=== PATIENT | female | born 1940 | race Caucasian/White ===

== ENCOUNTER 2020-09-09 12:38 | Inpatient (IN) ==
--- OUTSIDE RECORDS SUMMARY | 2020-09-09 12:40 | External Medical Summary | Continuity of Care Document ---
:1940 Author Name Mary Andino, Provider Address Unavailable Unavailable , Care Team Providers Name Role Phone Naomie Andino, Enzo Unavailable [email or web address] UN[place] Unavailable Unavailable Problems Active medical history not documented Allergies and Adverse Reactions Allergy history not documented Medications Aspirin 81 81 MG Oral Tablet Delayed Release Refills: 0 Effexor TABS Refills: 0 Verapamil HCl TABS Refills: 0 Vitamin B-12 TABS Refills: 0 metFORMIN HCl TABS Refills: 0 Procedures Procedures not documented Immunizations Immunizations not documented Plan of Treatment Planned Observations Planned Goals not documented Results No Known Results Results not documented
[2020-09-09] MEDS ORDERED: SODIUM CHLORIDE 0.9% 1000ML 1,000 ML IV ONE ×2 (12:56→14:05)
--- NOTE | 2020-09-09 13:02 | Emergency Department Note ---
Impression & Plan DKA (diabetic ketoacidoses), Compression fracture, Fall, Closed fibular fracture ED Provider Note NAME: MARLA VELEZ AGE: 80 SEX: F : 1940 ARRIVES VIA: Walk-In INFORMANT: Patient ED PROVIDER(S): Amadeo Trevino DO CHIEF COMPLAINT: Fall HPI: Patient is an 80-year-old female who presents to the ER following a mechanical fall. She slipped in her den. This occurred about 4 days ago. She was able to eventually get into her bed and lay in there. She was able to get up intermittently to go the bathroom but had significant difficulty. She complaining of pain throughout her right leg Specifically on her ankle. She also has lower back pain. She denies any headache or change in vision. No chest pain or shortness of breath. No belly pain. She admits to some nausea. She notes she is extremely thirsty. Eventually a neighbor came and has they not iced that her Meals on Wheels was not getting picked up at the front door. ROS: See above HPI for pertinent positives & negatives. A total of 10 systems reviewed and were otherwise negative. PAST MEDICAL HISTORY:See Below PAST SURGICAL HISTORY:See Below FAMILY HISTORY:See Below SOCIAL HISTORY:See Below HOME MEDICATIONS:See Below ALLERGIES:See Below VITALS:See Below PHYSICAL EXAMINATION: GENERAL: alert, well appearing, well nourished, no distress, non-toxic HEAD: normal cephalic, atraumatic EYE EXAM: normal conjunctiva, PERRL and EOM's grossly intact OROPHARYNX:mucous membranes are dry NECK: supple, no nuchal rigidity, no adenopathy, non-tender CHEST: stable to compression anteriorly and posteriorly LUNGS: clear to auscultation. Normal chest wall mechanics HEART: no murmurs, S1 normal and S2 normal ABDOMEN: abdomen soft, non-tender, normo-active bowel sounds, no masses, no rebound or guarding. PELVIS: stable to compression anteriorly and posteriorly BACK: Back is symmetrical on inspection and there is no deformity, Midline tenderness in the lower lumbar region, no CVA tenderness. UPPER EXTREMITIES: full active and passive range of motion of all joints without tenderness to palpation LOWER EXTREMITIES: No tenderness on palpation of left femur tib-fib ankle or foot. Skin is intact. DP 2 out of 4. Bruising over right ankle with minimal tenderness to palpation. Mild tenderness in the right mid femur and tib-fib. Skin is intact. DP 2 out of 4. Flexion at the hip knee and ankle intact but with moderate pain with flexion of the knee and ankle. Gross sensations intact. NEURO EXAM: Normal sensorium, cranial nerves II-XII grossly intact, normal speech, no gross weakness of arms, no gross weakness of legs. GCS: 15. MEDICAL DECISION MAKING: Patient is an 80-year-old female who presents to the ER for mechanical fall 4 days ago. Following this she has been unable to really ambulate or move at her house and has been laying in bed. Intermittently get to the bathroom. IV was established blood work was obtained. Labs show mild leukocytosis 11.5 thousand. No significant anemia. VBG with a pH of 7.3 and a CO2 of 35 with a bicarb of 1 7. Sodium of 128 with a bicarb of 15. Glucose was elevated at 4 7. LFTs bilirubin and troponin was negative.X-rays of the pelvis femur tib-fib and ankle show right distal fibular fracture. Patient was placed in a splint. She also had what appears to be compression fractures in the lower lumbar region and lower thoracic. She is tender over these. CT head and cervical spine was unremarkable. Discussed with hospitalist and patient was admitted for further work-up following bolus of IV fluids, IV narcotics and insulin bolus. Triage Nursing notes reviewed. Limited review of prior medical records performed Vital Signs: reviewed and remarkable for Tachycardic and hypothermic Differential diagnosis: Differential diagnoses include major intracranial, cervical, spinal, thoracic, abdominal, pelvic and neurologic injury. Fracture, contusion, sprain, strain, laceration, abrasions included as well. ER treatment provided: See below Diagnostics interpreted by me: ECG: [none] Cardiac Monitoring: An order was placed for continuous cardiac monitoring. The monitor shows a rate of 98 with sinus rhythm. Laboratory studies: As stated above and show below. Imaging studies: CT head and cervical spine showed no acute pathology X-rays of the tib-fib chest along with left ribs, pelvis showed no acute fractures with the exception of the distal right fibula. X-rays of the lumbar spine show lower thoracic compression fractures as well as endplate compression fracture at L3 Consultation(s): Discussed with Dr. Lema for further evaluation Procedures: none Critical Care: None Past Med/Surg History Medical History (Updated 09/09/20 @ 16:21 by mAadeo Trevino DO) Afib Depression Family History (Updated 09/09/20 @ 14:32 by Gordo Carlin MD) Other Heart disease Social History Smoking Status: Never smoker Preferred Language: Kyrgyz Feels Safe at Home: Yes Allergies Allergies Allergy/AdvReac Type Severity Reaction Status Date / Time codeine AdvReac Intermediate VOMITING Verified 09/09/20 14:40 Home Meds Home Medications Medication Instructions Recorded Confirmed metformin 1,000 mg PO BIDM 09/09/20 09/09/20 mirtazapine 30 mg PO HS 09/09/20 09/09/20 Results & Data (ED) Vital Signs Vital Signs - 24 hr 09/09/20 12:39 09/09/20 13:06 09/09/20 14:17 Temperature 35.6 C L Temperature Source Temporal Artery Scan Pulse Rate 100 H Pulse Rate [Finger] 90 Pulse Rhythm Regular Pulse Strength Normal Respiratory Rate 18 16 Respiratory Effort / Characteristics Non-Labored Spontaneous Non-Labored Respiratory Depth Normal Normal Respiratory Pattern Regular Blood Pressure 136/90 Blood Pressure [Right Arm] 131/93 Blood Pressure Mean 105 Blood Pressure Mean [Right Arm] 105 Blood Pressure Position Sitting Pulse Oximetry 98 96 Oxygen Delivery Method Room Air Room Air Room Air Sepsis Recent Fever Within 48 Hours No Sepsis New/Unexplained Change in Mental Status No Sepsis Action Taken by Nursing No Action Required 09/09/20 15:56 Temperature Temperature Source Pulse Rate Pulse Rate [Finger] 100 H Pulse Rhythm Pulse Strength Respiratory Rate 16 Respiratory Effort / Characteristics Non-Labored Respiratory Depth Normal Respiratory Pattern Blood Pressure Blood Pressure [Right Arm] 131/93 Blood Pressure Mean Blood Pressure Mean [Right Arm] 105 Blood Pressure Position Pulse Oximetry 99 Oxygen Delivery Method Room Air Sepsis Recent Fever Within 48 Hours Sepsis New/Unexplained Change in Mental Status Sepsis Action Taken by Nursing Laboratory Data Result diagrams: 09/09/20 13:00 09/09/20 13:00 Lab Results 09/09/20 09/09/20 09/09/20 Range/Units 13:00 13:00 13:20 WBC 11.58 H (4.8-10.8) K/uL RBC 4.97 (4.2-5.4) M/uL Hgb 15.1 (12.0-16.0) g/dL Hct 43.9 (37-47) % MCV 88.3 (80-100) fL MCH 30.4 (25-34) pg MCHC 34.4 (32-36) g/dL RDW Std Deviation 40.1 (36.4-46.3) fL RDW Coeff of Jude 12.5 (11.5-14.5) % Plt Count 361 (130-400) K/uL MPV 9.4 (7.4-10.4) fL Immature Gran % (Auto) 0.3 % Neut % (Auto) 78.5 % Lymph % (Auto) 10.6 % [place] % (Auto) 10.1 % Eos % (Auto) 0.4 % Baso % (Auto) 0.1 % Neut # (Auto) 9.09 H (1.4-6.5) K/uL Lymph # (Auto) 1.23 (1.2-3.4) K/uL [place] # (Auto) 1.17 H (0.11-0.59) K/uL Eos # (Auto) 0.05 (0-0.5) K/uL Baso # (Auto) 0.01 (0-0.2) K/uL Immature Gran # (Auto) 0.03 H (0.00-0.02) K/uL VBG pH (7.36-7.41) VBG pCO2 (38-50) mmHg VBG pO2 mmHg VBG HCO3 mmol/L VBG O2 Saturation % VBG Base Excess mEq/L Barometric Pressure mm/Hg Sodium 128 L (136-145) mmol/L Potassium 4.1 (3.5-5.1) mmol/L Chloride 93 L (98-107) mmol/L Carbon Dioxide 15 L (21-32) mmol/L Anion Gap 20.0 H (3-11) BUN 16 (7-18) mg/dl Creatinine 1.08 (0.6-1.2) mg/dl Est Cr Clr Drug Dosing 37.0 ml/min Est GFR ( Amer) 55.4 Est GFR (Non-Af Amer) 47.8 BUN/Creatinine Ratio 14.6 (10-20) Glucose 407 H* (70-99) mg/dl POC Glucose (70-99) mg/dl Lactate (0.4-2.0) mmol/L Calcium 9.9 (8.5-10.1) mg/dl Phosphorus (2.5-4.9) mg/dl Magnesium Total Bilirubin 0.6 (0.2-1) mg/dl AST 11 L (15-37) U/L ALT 19 (12-78) U/L Alkaline Phosphatase 107 (45-117) U/L Total Creatine Kinase 39 (26-192) U/L Troponin I < 0.015 (0-0.045) ng/ml Total Protein 8.2 (6.4-8.2) gm/dl Albumin 3.1 L (3.4-5.0) gm/dl Globulin 5.1 H (2.5-4.0) gm/dl Albumin/Globulin Ratio 0.6 L (0.9-2) Lipase 142 (73-393) U/L Beta-Hydroxybutyric Acd (0.2-2.81) mg/dl COVID-19 Eval [facility] SARS-CoV-2, RNA, NAAT (NEGATIVE) 09/09/20 09/09/20 09/09/20 Range/Units 13:20 14:54 14:54 WBC (4.8-10.8) K/uL RBC (4.2-5.4) M/uL Hgb (12.0-16.0) g/dL Hct (37-47) % MCV (80-100) fL MCH (25-34) pg MCHC (32-36) g/dL RDW Std Deviation (36.4-46.3) fL RDW Coeff of Jude (11.5-14.5) % Plt Count (130-400) K/uL MPV (7.4-10.4) fL Immature Gran % (Auto) % Neut % (Auto) % Lymph % (Auto) % [place] % (Auto) % Eos % (Auto) % Baso % (Auto) % Neut # (Auto) (1.4-6.5) K/uL Lymph # (Auto) (1.2-3.4) K/uL [place] # (Auto) (0.11-0.59) K/uL Eos # (Auto) (0-0.5) K/uL Baso # (Auto) (0-0.2) K/uL Immature Gran # (Auto) (0.00-0.02) K/uL VBG pH 7.30 L (7.36-7.41) VBG pCO2 35 L (38-50) mmHg VBG pO2 25 mmHg VBG HCO3 17 mmol/L VBG O2 Saturation < 60.0 % VBG Base Excess -8.8 mEq/L Barometric Pressure 734.9 mm/Hg Sodium (136-145) mmol/L Potassium (3.5-5.1) mmol/L Chloride (98-107) mmol/L Carbon Dioxide (21-32) mmol/L Anion Gap (3-11) BUN (7-18) mg/dl Creatinine (0.6-1.2) mg/dl Est Cr Clr Drug Dosing ml/min Est GFR ( Amer) Est GFR (Non-Af Amer) BUN/Creatinine Ratio (10-20) Glucose (70-99) mg/dl POC Glucose (70-99) mg/dl Lactate (0.4-2.0) mmol/L Calcium (8.5-10.1) mg/dl Phosphorus 3.2 (2.5-4.9) mg/dl Magnesium TNP Total Bilirubin (0.2-1) mg/dl AST (15-37) U/L ALT (12-78) U/L Alkaline Phosphatase (45-117) U/L Total Creatine Kinase (26-192) U/L Troponin I (0-0.045) ng/ml Total Protein (6.4-8.2) gm/dl Albumin (3.4-5.0) gm/dl Globulin (2.5-4.0) gm/dl Albumin/Globulin Ratio (0.9-2) Lipase (73-393) U/L Beta-Hydroxybutyric Acd TNP (0.2-2.81) mg/dl COVID-19 Eval Order SARS-CoV-2, RNA, NAAT NEGATIVE (NEGATIVE) 09/09/20 09/09/20 Range/Units 14:55 15:42 WBC (4.8-10.8) K/uL RBC (4.2-5.4) M/uL Hgb (12.0-16.0) g/dL Hct (37-47) % MCV (80-100) fL MCH (25-34) pg MCHC (32-36) g/dL RDW Std Deviation (36.4-46.3) fL RDW Coeff of Jude (11.5-14.5) % Plt Count (130-400) K/uL MPV (7.4-10.4) fL Immature Gran % (Auto) % Neut % (Auto) % Lymph % (Auto) % [place] % (Auto) % Eos % (Auto) % Baso % (Auto) % Neut # (Auto) (1.4-6.5) K/uL Lymph # (Auto) (1.2-3.4) K/uL [place] # (Auto) (0.11-0.59) K/uL Eos # (Auto) (0-0.5) K/uL Baso # (Auto) (0-0.2) K/uL Immature Gran # (Auto) (0.00-0.02) K/uL VBG pH (7.36-7.41) VBG pCO2 (38-50) mmHg VBG pO2 mmHg VBG HCO3 mmol/L VBG O2 Saturation % VBG Base Excess mEq/L Barometric Pressure mm/Hg Sodium (136-145) mmol/L Potassium (3.5-5.1) mmol/L Chloride (98-107) mmol/L Carbon Dioxide (21-32) mmol/L Anion Gap (3-11) BUN (7-18) mg/dl Creatinine (0.6-1.2) mg/dl Est Cr Clr Drug Dosing ml/min Est GFR ( Amer) Est GFR (Non-Af Amer) BUN/Creatinine Ratio (10-20) Glucose (70-99) mg/dl POC Glucose 366 H* (70-99) mg/dl Lactate 1.9 (0.4-2.0) mmol/L Calcium (8.5-10.1) mg/dl Phosphorus (2.5-4.9) mg/dl Magnesium Total Bilirubin (0.2-1) mg/dl AST (15-37) U/L ALT (12-78) U/L Alkaline Phosphatase (45-117) U/L Total Creatine Kinase (26-192) U/L Troponin I (0-0.045) ng/ml Total Protein (6.4-8.2) gm/dl Albumin (3.4-5.0) gm/dl Globulin (2.5-4.0) gm/dl Albumin/Globulin Ratio (0.9-2) Lipase (73-393) U/L Beta-Hydroxybutyric Acd (0.2-2.81) mg/dl COVID-19 Eval Order SARS-CoV-2, RNA, NAAT (NEGATIVE) Administered Medications Discontinued Medications Sodium Chloride (Nss 1000ml) 1,000 mls @ 999 mls/hr IV .Q1H1M ONE Stop: 09/09/20 13:56 Last Infusion: 09/09/20 15:29 Dose: 0 mls/hr Documented by: [id number] Admin: 09/09/20 13:33 Dose: 999 mls/hr Documented by: [id number] Sodium Chloride (Nss 1000ml) 1,000 mls @ 999 mls/hr IV .Q1H1M ONE Stop: 09/09/20 15:05 Last Admin: 09/09/20 15:06 Dose: 999 mls/hr Documented by: [id number] Insulin Human Regular (Novolin-R Bolus From Bag) 7 units IV ONE ONE Stop: 09/09/20 14:16 Last Admin: 09/09/20 15:13 Dose: Not Given Documented by: [id number] Insulin Human Regular (Novolin-R Insulin Per Unit Charge) Confirm Administered Dose 7 units .ROUTE .STK-MED ONE Stop: 09/09/20 15:01 Last Admin: 09/09/20 15:05 Dose: 7 units Documented by: [id number] Cosigned by: [id number] Miscellaneous (Dka Goal Range 150-250 Mg/Dl) 1 ea N/A ONE ONE Stop: 09/09/20 14:06 Last Admin: 09/09/20 15:12 Dose: Not Given Documented by: [id number] Morphine Sulfate (Morphine Sulfate 2 Mg/Ml Carp) 2 mg IV NOW STA Stop: 09/09/20 14:27 Last Admin: 09/09/20 15:05 Dose: 2 mg Documented by: [id number] Ondansetron HCl (Ondansetron Inj 2 Mg/Ml 2 Ml Vial) 4 mg IV NOW STA Stop: 09/09/20 14:27 Last Admin: 09/09/20 15:05 Dose: 4 mg Documented by: [id number] Discharge Plan Visit Data Chief Complaint: Fall Stated Complaint: fall ED Provider: Amadeo Trevino Discharge Problem: DKA (diabetic ketoacidoses), Compression fracture, Fall, Closed fibular fracture Forms Stand Alone Forms: My [facility] [employer] Prescriptions Prescriptions: No Action mirtazapine 30 mg tablet 30 mg PO HS RF: 0 metformin 1,000 mg tablet 1,000 mg PO BIDM RF: 0 Referrals Referrals: Milton Padilla MD [Primary Care Provider] - Discharge Problem: DKA (diabetic ketoacidoses) Qualifiers: Diabetes mellitus type: other specified (including ROSIO) Diabetes mellitus complication detail: without coma Qualified Code(s): E13.10 - Other specified diabetes mellitus with ketoacidosis without coma Fall Qualifiers: Encounter type: initial encounter Qualified Code(s): W19.XXXA - Unspecified fall, initial encounter Closed fibular fracture Qualifiers: Encounter type: initial encounter Fibula location: lateral malleolus Fracture alignment: displaced Laterality: right Qualified Code(s): S82.61XA - Displaced fracture of lateral malleolus of right fibula, initial encounter for closed fracture
[2020-09-09 13:09] LABS: Basophils # (auto) 0.01 K/uL (0-0.2); Basophils % (auto) 0.1 %; Eosinophils # (auto) 0.05 K/uL (0-0.5); Eosinophils % (auto) 0.4 %; Hematocrit (blood only) 43.9 % (37-47); Hemoglobin 15.1 g/dL (12.0-16.0); Immature Granulocytes # (auto) 0.03 K/uL (0.00-0.02); Immature Granulocytes % (auto) 0.3 %; Lymphocytes # (auto) 1.23 K/uL (1.2-3.4); Lymphocytes % (auto) 10.6 %; Mean Corpuscular Hemoglobin 30.4 pg (25-34); Mean Corpuscular Hgb Conc 34.4 g/dL (32-36); Mean Corpuscular Volume 88.3 fL (80-100); Mean Platelet Volume 9.4 fL (7.4-10.4); Monocytes # (auto) 1.17 K/uL (0.11-0.59); Monocytes % (auto) 10.1 %; Neutrophils # (auto) 9.09 K/uL (1.4-6.5); Neutrophils % (auto) 78.5 %; Platelet Count 361 K/uL (130-400); RDW Coefficient of Variation 12.5 % (11.5-14.5); RDW Standard Deviation 40.1 fL (36.4-46.3); Red Blood Count 4.97 M/uL (4.2-5.4); White Blood Count 11.58 K/uL (4.8-10.8)
[2020-09-09 14:03] LABS: Alanine Aminotransferase 19 U/L (12-78); Albumin Globulin Ratio 0.6 (0.9-2); Albumin Level 3.1 gm/dl (3.4-5.0); Alkaline Phosphatase 107 U/L (45-117); Aspartate Aminotransferase 11 U/L (15-37); BUN Creatinine Ratio 14.6 (10-20); Bilirubin,Total 0.6 mg/dl (0.2-1); Blood Urea Nitrogen 16 mg/dl (7-18); Calcium 9.9 mg/dl (8.5-10.1); Carbon Dioxide 15 mmol/L (21-32); Chloride 93 mmol/L (98-107); Creatine Kinase 39 U/L (26-192); Est GFR (African American) 55.4; Est GFR (Non-African American) 47.8; Globulin 5.1 gm/dl (2.5-4.0); Glucose 407 mg/dl (70-99); Lipase 142 U/L (73-393); Potassium 4.1 mmol/L (3.5-5.1); Sodium 128 mmol/L (136-145); Total Protein 8.2 gm/dl (6.4-8.2); Troponin I < 0.015 ng/ml (0-0.045)
[2020-09-09] MEDS ORDERED: DKA GOAL RANGE 150-250 mg/dl ONE (14:05)
[2020-09-09] MEDS ORDERED: CARBOHYDRATES FOR HYPOGLYCEMIA PO PRN (14:05)
[2020-09-09] MEDS ORDERED: GLUCAGON FOR INJ 1 MG VIAL SQ PRN (14:05)
[2020-09-09] MEDS ORDERED: ED DKA INSULIN DRIP ONE (14:05)
[2020-09-09] MEDS ORDERED: GLUCOSE 10 TABS/TUBE PO PRN (14:05)
[2020-09-09] MEDS ORDERED: DEXTROSE 50% 50 ML SYRINGE IV PRN (14:05)
[2020-09-09] MEDS ORDERED: GLUCOSE 40% GEL 15 GM TUBE PO PRN (14:05)
--- NOTE | 2020-09-09 14:05 | XRay Report ---
SINGLE VIEW PELVIS; 3 VIEWS RIGHT FEMUR CLINICAL HISTORY: Fall. Right leg pain. FINDINGS: An AP view of the pelvis with AP, frog-leg, and lateral views of the right femur are obtain ed. Correlation is made with pelvic CT dated 01/01/2012. The skeletal structures are osteopenic. There is no radiographic evidence of acute fracture involving the hips or bony pelvis. There is no radiogra phic evidence of right femoral fracture. Lumbosacral spondylosis is partially visualized. Sclerotic c hange is noted in the sacroiliac joints. Moderate degenerative joint space narrowing is present in osmin th hips. The overlying soft tissues are within normal limits. The right knee joint is grossly maintai sumit noting a joint effusion. IMPRESSION: 1. There is no radiographic evidence of acute fracture involving the hips or bony pelvis. 2. There is no radiographic evidence of right femoral fracture. Electronically signed by: Jeronimo Orosco M.D. 09/09/2020 2:04 PM
--- NOTE | 2020-09-09 14:06 | Electrocardiogram Report ---
Test Reason : Blood Pressure : / mmHG Vent. Rate : 095 BPM Atrial Rate : 095 BPM P-R Int : 168 ms QRS Dur : 100 ms QT Int : 388 ms P-R-T Axes : 078 -53 033 degrees QTc Int : 487 ms Sinus rhythm with Premature supraventricular complexes Low voltage QRS Incomplete right bundle branch block Left anterior fascicular block Cannot rule out Anterior infarct , age undetermined Abnormal ECG When compared with ECG of 02-JAN-2012 06:32, Premature supraventricular complexes are now Present Minimal criteria for Anterior infarct are now Present Confirmed by Jose Brady ([id number]) on 09/09/2020 2:06:06 PM Referred By: REFERRED SELF Confirmed By:Jose Brady
--- NOTE | 2020-09-09 14:12 | XRay Report ---
XR tibia fibula RT 2V CLINICAL HISTORY: Right omer pain. COMPARISON: None FINDINGS: Note is made of an acute oblique minimally displaced fracture the distal shaft of the righ t fibula which extends 3 cm proximal to the level of the tibiotalar articulation. No acute fracture o f the right tibia is identified. IMPRESSION: Acute oblique minimally displaced fracture of the distal shaft of the right fibula. ACT 112: Negative or not required by law. Electronically signed by: Fahad Rahman M.D. 09/09/2020 2:11 PM
--- NOTE | 2020-09-09 14:12 | XRay Report ---
XR ankle RT min 3V routine CLINICAL HISTORY: Right ankle pain. COMPARISON: None FINDINGS: Note is made of an acute minimally displaced oblique fracture of the distal shaft of the r ight fibula which extends 3.3 cm proximal to the level of the tibiotalar joint. There is slight media l ankle mortise widening. No acute fracture of the distal right tibia is noted. There is mild posteri or and plantar calcaneal spurring. There is ankle soft tissue swelling. IMPRESSION: 1. Acute oblique minimally displaced fracture of the distal shaft of the right fibula. 2. Slight medial ankle mortise widening. 3. Ankle soft tissue swelling. ACT 112: Negative or not required by law. Electronically signed by: Fahad Rahman M.D. 09/09/2020 2:11 PM
--- NOTE | 2020-09-09 14:13 | XRay Report ---
XR lumbar spine 2-3V CLINICAL HISTORY: lower back pain COMPARISON STUDY: January 01, 2012 FINDINGS: There are gas-filled small and large bowel loops, similar to the prior 2011 study. The bone s are osteopenic. There are old superior endplate L1 and L2 compression deformities. There is a new a ge-indeterminate superior endplate L3 compression deformity. There is an old T12 compression deformit y. Since the prior study the patient has developed a T11 compression fracture. This does not appear a cute IMPRESSION: 1. Interval development of an age-indeterminate superior endplate L3 compression fracture 2. Interval development of a moderate T11 compression fracture. This does not appear acute 3. Chronic T12, L1 and L2 vertebral body compression deformities ACT 112: Negative or not required by law. Electronically signed by: Vasquez Pascal M.D. 09/09/2020 2:11 PM
[2020-09-09] MEDS ORDERED: NovoLIN-R BOLUS FROM BAG IV ONE (14:15)
[2020-09-09] MEDS ORDERED: INSULIN REGULAR 250 UNITS in SODIUM CHLORIDE 0.9% 247.5 ML IV SCH ×2 (14:15→17:09)
--- NOTE | 2020-09-09 14:16 | CT Scan Report ---
CT OF THE CERVICAL SPINE CLINICAL HISTORY: Neck pain status post trauma COMPARISON STUDY: December 2011 CT DOSE: 1228.83 mGycm TECHNIQUE: CT scan of the cervical spine was performed from the skull base to the thoracic inlet. Mey ges are reviewed in the axial, sagittal, and coronal planes. IV contrast was not administered for thi s examination. A dose lowering technique was utilized adhering to the principles of ALARA. FINDINGS: The visualized portions of the lung apices reveal no evidence of pneumothorax. The prevertebral soft tissues are normal. No acute fractures or subluxations are visualized. There are multilevel degenerative changes. Minimal anterolisthesis of C4 on C5 is felt to be degenera tive. IMPRESSION: No evidence of acute fracture or traumatic subluxation. ACT 112: Negative or not required by law. Electronically signed by: Vasquez Pascal M.D. 09/09/2020 2:15 PM
--- NOTE | 2020-09-09 14:18 | CT Scan Report ---
CT head/brain wo con CLINICAL HISTORY: Head pain status post trauma COMPARISON STUDY: January 01, 2012 TECHNIQUE: Axial CT of the brain is performed from the vertex to the skull base. IV contrast was not administered for this examination. A dose lowering technique was utilized adhering to the principles of ALARA. CT DOSE: FINDINGS: No intra or extra-axial mass lesions are visualized. There is no CT evidence of acute cortical infarc tion. There is no evidence of midline shift. There is no acute hemorrhage. No calvarial fractures ar e visualized. There is prominent bifrontal extra-axial CSF space, likely secondary to atrophy. There is no evidence of pathologic ventricular dilatation. There is no evidence of acute sinusitis IMPRESSION: No acute intracranial findings ACT 112: Negative or not required by law. Electronically signed by: Vasquez Pascal M.D. 09/09/2020 2:16 PM
[2020-09-09] MEDS ORDERED: MoRPHine SULFATE 2 MG/ML CARP IV STA (14:26)
[2020-09-09] MEDS ORDERED: ONDANSETRON INJ 2 MG/ML 2 ML VIAL IV STA (14:26)
--- NOTE | 2020-09-09 14:37 | History & Physical Report ---
Date of Service September 09, 2020 Assessment & Plan (1) Diabetes: Patient typically seemingly has type 2 diabetes only taking Metformin. Her glucoses are likely elevated due to stress. We are still evaluating for secondary causes such as urinary infection etc. Patient was initiated on insul in drip be continued hydration (2) Afib: Patient has a history of A. fib appears to be in sinus rhythm on today's EKG she is typically not on any rate controlling medications at this time. Because her fall could have been caused by dysrhythmia and the patient will be on telemetry monitoring. There is elevation of troponin to suggest a cardiac event (3) Hyponatremia: Patient's hyponatremia almost completely corrects for her glucose elevation we will check a serum chemistry this afternoon with hydration to be assured that her sodium is improving once her glucose is corrected (4) Right fibular fracture: Patient has a right fibular fracture as well as vertebral compression fractures secondary to her falls has not been found to have any elevation of CK. She likely has some osteoporosis. If your vitamin D level be checked consult is made Dr. Nicholas for further expert evaluation of her fractures (5) Vertebral compression fracture: Right vertebral compression fractures are noted she will have scheduled Tylenol Lidoderm patch PT OT evaluation (6) DVT prophylaxis: Patient is on Lovenox Patient wishes to be a DNR upon further evaluation At that the patient's daughter Alix on admission at area code [phone] History of Present Illness Primary Care Provider: Milton Padilla MD 80-year-old female who presents the ER following a mechanical fall. She slipped and fell about 4 days ago. She complaining of pain throughout her right leg. Eventually a neighbor came and has they noticed that her Meals on Wheels was not getting picked up at the front door. She also has lower back pain. She denies any headache or change in vision. No chest pain or shortness of breath. No belly pain. She admits to some nausea. She notes she is extremely thirsty. Significant findings include fibular fracture thoracic compression fracture uncontrolled diabetes with glucose of 400, hyponatremia that corrects for glucose anion gap acidosis which could be from her diabetes with poor perfusion from dehydration is unlikely because of his presentation we will check covid negative Allergies Allergy/AdvReac Type Severity Reaction Status Date / Time codeine AdvReac Intermediate VOMITING Verified 09/09/20 14:40 Home Medications Medication Instructions Recorded Confirmed Type metformin 1,000 mg PO BIDM 09/09/20 09/09/20 History mirtazapine 30 mg PO HS 09/09/20 09/09/20 History Past Med/Surg History Medical History (Updated 09/09/20 @ 15:17 by Gordo Carlin MD) Afib Depression Family History (Updated 09/09/20 @ 14:32 by Gordo Carlin MD) Other Heart disease Social History Smoking Status: Never smoker Preferred Language: Slovak Feels Safe at Home: Yes Review of Systems Review of Systems: moderate distress and fatigue no headache, blurry or double vision no speech or swallowing issues reproducible chest pain, no pressure or palpitations no shortness of breath, cough or wheezes no abdominal pain, nausea or vomiting, diarrhea or constipation no dysuria, hematuria or frequency left ankle pain central lower non radicular back pain, no CVA tenderness no bruising, bleeding or rashes no focal signs of weakness or numbness or altered sensation no complaints of anxiety or depression.. Physical Exam Physical Exam: The patient appeared well nourished and normally developed. Vital signs as documented. Head exam is normocephalic atraumatic no scleral icterus Neck is without JVD, thyromegaly, or carotid bruits. Lungs are clear but diminshed at the bases Cardiac exam, Rhythm is regular.. No murmurs, rubs or gallops. Abdominal exam reveals normal bowel sounds, soft non tender, no masses Extremities are nonedematous and both pedal pulses are present a spint is on the right ankle, and sensation is intact distally Neurologic exam is alert and oriented, no focal loss of strength or sensation Skin is without bruises or rashes Psychologically is without concerns for anxiety or depression Results & Data Results & Data ([facility]) Vital Signs (Past 12 Hours) Vital Signs Temp Pulse Pulse Resp BP BP Pulse Ox 09/09/20 14:17 90 16 131/93 96 09/09/20 12:39 96.1 F L 100 H 18 136/90 98 Patient had multiple x-rays with her history of fall. Ankle x-ray shows acute oblique minimally displaced fracture of the distal shaft of the right fibula Pelvis 3 views right femur fracture Lumbar spine showing age-indeterminate L3 compression fracture interval development moderate T11 compression fracture chronic T12 L1-L2 vertebral compression deformities CT head no acute intracranial findings CT cervical spine no evidence of acute fracture or traumatic subluxation ecg nsr RBBB PG Care Time/CCT Total # of Minutes Spent Total Time Spent with Patient: Total time spent is greater than 50% in coordination of care (as documented) at patient's floor/unit and/or counseling patient: Coding Level of Care Code 45019 Initial Inpt Care Lvl 3 Diagnoses Diabetes E11.9 Afib I48.91 Hyponatremia E87.1 Right fibular fracture S82.401A Vertebral compression fracture M48.50XA DVT prophylaxis Z29.9
[2020-09-09] MEDS ORDERED: NovoLIN-R INSULIN PER UNIT CHARGE ONE (15:00)
[2020-09-09 15:17] LABS: Base Excess VBG -8.8 mEq/L; HCO3 VBG 17 mmol/L; PCO2 VBG 35 mmHg (38-50); PO2 VBG 25 mmHg
--- NOTE | 2020-09-09 15:30 | XRay Report ---
XR ribs LT min 2V w CXR1V CLINICAL HISTORY: Left rib pain COMPARISON STUDY: June 2011 FINDINGS: The erect chest reveals no pneumothorax. There is no focal pulmonary consolidation. There i s borderline elevation of the right hemidiaphragm. No left-sided rib fractures are visualized. There is a small peritendinous calcification within the left shoulder likely secondary to calcific tendinop athy. Multiple mild vertebral body compression deformities are suspected. IMPRESSION: 1. No evidence of pneumothorax 2. No left-sided rib fractures identified ACT 112: Negative or not required by law. Electronically signed by: Vasquez Pascal M.D. 09/09/2020 3:29 PM
[2020-09-09 15:40] LABS: Oxygen Saturation VBG < 60.0 %
[2020-09-09 16:06] LABS: Phosphorus 3.2 mg/dl (2.5-4.9)
[2020-09-09] MEDS ORDERED: INSULIN ASPART 100 UNITS/ML 3 ML PEN SC SCH ×2 (16:30→17:09)
[2020-09-09] MEDS ORDERED: INSULIN PROTOCOL GOAL RANGE ONE (17:09)
[2020-09-09] MEDS ORDERED: ALUMINUM/MAGNESIUM SUSP 30 ML UDC PO PRN (17:09)
[2020-09-09] MEDS ORDERED: DC ALL PREVIOUSLY ORDERED DIABETES MEDS ONE (17:09)
[2020-09-09] MEDS ORDERED: ACETAMINOPHEN 500 MG TAB PO PRN (17:09)
[2020-09-09] MEDS ORDERED: MODERATE STRESS LEVEL ONE (17:09)
[2020-09-09] MEDS ORDERED: SODIUM CHLORIDE 0.9% 1000ML 1,000 ML IV SCH (17:09)
[2020-09-09] MEDS ORDERED: PHARMACY GLYCEMIC MGMT CONSULT PRN (17:24)
--- NOTE | 2020-09-09 17:59 | Orthopedic Consultation ---
Date of Consultation September 09, 2020 Assessment & Plan (1) Closed fibular fracture: Patient was evaluated by PT/OT. NWB RLE with walker and assist as needed. RICE Incentive spirometry ordered for chest wall contusion Orthopedically I feel that she is stable. I discussed the patient with Dr. Benavidez and he agrees Defer all other medical issues to the medicine service I, Dr. Benavidez, saw and examined the patient and discussed the management with my PA. I reviewed my PAs note and agree with the documented findings and the plan of care I developed. Discussed with the patient conservative versus surgical management for her ankle fracture, and she would prefer conservative treatment. We will follow her closely and she understands that if the fracture were to displace, that she may require surgery. Patient's splint will be replaced with an AO type splint in the a.m. Repeat x-rays of the right ankle will be obtained in the splint and at the same time 3 views of the right knee (AP, lateral, and sunrise views) will be obtained to evaluate the knee. (2) Vertebral compression fracture: RICE Pain control per primary service. Present on Admission?: Yes (3) Fall: History of Present Illness Reason for Consultation: Right ankle pain, right knee pain, left-sided chest wall pain and back pain Requesting Physician: Dr. Cr Benavidez Attending Physician: Gordo Carlin MD History of Present Illness Patient is an 80-year-old female Was seen on the second floor in consultation For a mechanical fall that occurred about 4 days ago. She was able to eventually get into her bed and lay in there. She was able to get up intermittently to go the bathroom but had significant difficulty. She complaining of pain throughout her right leg Specifically on her ankle. She also has lower back pain that she states is chronic but slightly worse than it has been prior to the fall. She also complains of some s left-sided chest wall pain when she takes a deep breath. She denies any headache or change in vision. No shortness of breath. No belly pain. She admits to some nausea. She notes she is extremely thirsty. Eventually a neighbor came and has they noticed that her Meals on Wheels was not getting picked up at the front door. Allergies Allergy/AdvReac Type Severity Reaction Status Date / Time codeine AdvReac Intermediate VOMITING Verified 09/09/20 14:40 Home Medications Medication Instructions Recorded Confirmed Type metformin 1,000 mg PO BIDM 09/09/20 09/09/20 History mirtazapine 30 mg PO HS 09/09/20 09/09/20 History Patient History Medical History Afib Depression Family History Other Heart disease Social History Smoking Status: Never smoker Hx Alcohol Use: Yes Hx Substance Use: No Preferred Language: Amharic Communication Ability: Effective Beliefs That Will Affect Care: None Current Living Situation: Alone Other Information That Helps Us Care for You: No Feels Safe at Home: Yes Safety Concerns: Feels Safe At This Time Assistive Devices: Cane and Walker Review of Systems Review of Systems: All systems reviewed & are unremarkable except as noted in Subjective Physical Exam Physical Exam: Right ankle: Patient is currently in a coaptation posterior U-splint. She is tender to palpation over the anterior surface of the ankle just proximal to the joint. She has appropriate mobility of her toes. She is neurovascularly intact. Peripheral pulses are palpable and 2+. Capillary fill slightly greater in 2 seconds. I did not remove the splint from her ankle due to the presence of a mildly displaced distal fibula fracture to the level of the lateral malleolus. Right knee: Patient has moderate edema over the anterior surface of the knee with limited range of motion from 0 to 70 degrees passively. She experiences medial and lateral joint tenderness when knee is palpated in the flexed position. There is no varus or valgus laxity. Negative Sonia test. There is no erythema, ecchymosis, warmth nor palpable deformity. 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 She also has a palpable popliteal cyst in the posterior fossa. Her calf is soft supple nontender to palpation. She is unable to perform a straight leg raise test. Quad strength is 2/5 Chest: Patient experiences tenderness to palpation over the seventh rib in the mid axillary line. There is no palpable step-off or deformity. There is no edema, erythema, ecchymosis, warmth or palpable deformity. Lung sounds are clear throughout with no wheezing rales or rhonchi. Patient has an irregularly irregular heart rhythm indicating atrial fibrillation. X-rays of the patient's chest and ribs do not show any definitive fracture. Back: Patient experienced tenderness to palpation over the distal aspect of the thoracic spine as well has tenderness over the entire lumbar spine. There is no notable scoliotic curvature. There is no edema, erythema, ecchymosis, warmth or palpable deformity. Patient does have difficulty sitting up in the examination was performed with her rolling to her side. X-rays show age-indeterminate compression fractures affecting vertebral bodies T11-L3 Results & Data ([facility]) Vital Signs (Past 12 Hours) Vital Signs Temp Pulse Pulse Resp BP BP Pulse Ox 09/09/20 17:18 36.6 C 96 H 20 124/82 98 09/09/20 16:23 36.5 C 93 H 16 134/89 97 09/09/20 15:56 100 H 16 131/93 99 09/09/20 14:17 90 16 131/93 96 09/09/20 12:39 35.6 C L 100 H 18 136/90 98 Laboratory Results 09/09/20 09/09/20 09/09/20 Range/Units 17:14 17:14 15:42 WBC (4.8-10.8) K/uL RBC (4.2-5.4) M/uL Hgb (12.0-16.0) g/dL Hct (37-47) % MCV (80-100) fL MCH (25-34) pg MCHC (32-36) g/dL RDW Std Deviation (36.4-46.3) fL RDW Coeff of Jude (11.5-14.5) % Plt Count (130-400) K/uL MPV (7.4-10.4) fL Immature Gran % (Auto) % Neut % (Auto) % Lymph % (Auto) % [place] % (Auto) % Eos % (Auto) % Baso % (Auto) % Neut # (Auto) (1.4-6.5) K/uL Lymph # (Auto) (1.2-3.4) K/uL [place] # (Auto) (0.11-0.59) K/uL Eos # (Auto) (0-0.5) K/uL Baso # (Auto) (0-0.2) K/uL Immature Gran # (Auto) (0.00-0.02) K/uL VBG pH (7.36-7.41) VBG pCO2 (38-50) mmHg VBG pO2 mmHg VBG HCO3 mmol/L VBG O2 Saturation % VBG Base Excess mEq/L Barometric Pressure mm/Hg Sodium (136-145) mmol/L Potassium (3.5-5.1) mmol/L Chloride (98-107) mmol/L Carbon Dioxide (21-32) mmol/L Anion Gap (3-11) BUN (7-18) mg/dl Creatinine (0.6-1.2) mg/dl Est Cr Clr Drug Dosing ml/min Est GFR ( Amer) Est GFR (Non-Af Amer) BUN/Creatinine Ratio (10-20) Glucose (70-99) mg/dl POC Glucose 287 H 300 H 366 H* (70-99) mg/dl Estimat Average Glucose Hemoglobin A1c Lactate (0.4-2.0) mmol/L Calcium (8.5-10.1) mg/dl Phosphorus (2.5-4.9) mg/dl Magnesium Total Bilirubin (0.2-1) mg/dl AST (15-37) U/L ALT (12-78) U/L Alkaline Phosphatase (45-117) U/L Total Creatine Kinase (26-192) U/L Troponin I (0-0.045) ng/ml Total Protein (6.4-8.2) gm/dl Albumin (3.4-5.0) gm/dl Globulin (2.5-4.0) gm/dl Albumin/Globulin Ratio (0.9-2) Lipase (73-393) U/L Beta-Hydroxybutyric Acd (0.2-2.81) mg/dl COVID-19 Eval Order SARS-CoV-2, RNA, NAAT (NEGATIVE) 09/09/20 09/09/20 09/09/20 Range/Units 14:55 14:54 14:54 WBC (4.8-10.8) K/uL RBC (4.2-5.4) M/uL Hgb (12.0-16.0) g/dL Hct (37-47) % MCV (80-100) fL MCH (25-34) pg MCHC (32-36) g/dL RDW Std Deviation (36.4-46.3) fL RDW Coeff of Jude (11.5-14.5) % Plt Count (130-400) K/uL MPV (7.4-10.4) fL Immature Gran % (Auto) % Neut % (Auto) % Lymph % (Auto) % [place] % (Auto) % Eos % (Auto) % Baso % (Auto) % Neut # (Auto) (1.4-6.5) K/uL Lymph # (Auto) (1.2-3.4) K/uL [place] # (Auto) (0.11-0.59) K/uL Eos # (Auto) (0-0.5) K/uL Baso # (Auto) (0-0.2) K/uL Immature Gran # (Auto) (0.00-0.02) K/uL VBG pH (7.36-7.41) VBG pCO2 (38-50) mmHg VBG pO2 mmHg VBG HCO3 mmol/L VBG O2 Saturation % VBG Base Excess mEq/L Barometric Pressure mm/Hg Sodium (136-145) mmol/L Potassium (3.5-5.1) mmol/L Chloride (98-107) mmol/L Carbon Dioxide (21-32) mmol/L Anion Gap (3-11) BUN (7-18) mg/dl Creatinine (0.6-1.2) mg/dl Est Cr Clr Drug Dosing ml/min Est GFR ( Amer) Est GFR (Non-Af Amer) BUN/Creatinine Ratio (10-20) Glucose (70-99) mg/dl POC Glucose (70-99) mg/dl Estimat Average Glucose Pending Hemoglobin A1c Pending Lactate 1.9 (0.4-2.0) mmol/L Calcium (8.5-10.1) mg/dl Phosphorus 3.2 (2.5-4.9) mg/dl Magnesium TNP Total Bilirubin (0.2-1) mg/dl AST (15-37) U/L ALT (12-78) U/L Alkaline Phosphatase (45-117) U/L Total Creatine Kinase (26-192) U/L Troponin I (0-0.045) ng/ml Total Protein (6.4-8.2) gm/dl Albumin (3.4-5.0) gm/dl Globulin (2.5-4.0) gm/dl Albumin/Globulin Ratio (0.9-2) Lipase (73-393) U/L Beta-Hydroxybutyric Acd TNP (0.2-2.81) mg/dl COVID-19 Eval Order SARS-CoV-2, RNA, NAAT (NEGATIVE) 09/09/20 09/09/20 09/09/20 Range/Units 14:54 13:20 13:20 WBC (4.8-10.8) K/uL RBC (4.2-5.4) M/uL Hgb (12.0-16.0) g/dL Hct (37-47) % MCV (80-100) fL MCH (25-34) pg MCHC (32-36) g/dL RDW Std Deviation (36.4-46.3) fL RDW Coeff of Jude (11.5-14.5) % Plt Count (130-400) K/uL MPV (7.4-10.4) fL Immature Gran % (Auto) % Neut % (Auto) % Lymph % (Auto) % [place] % (Auto) % Eos % (Auto) % Baso % (Auto) % Neut # (Auto) (1.4-6.5) K/uL Lymph # (Auto) (1.2-3.4) K/uL [place] # (Auto) (0.11-0.59) K/uL Eos # (Auto) (0-0.5) K/uL Baso # (Auto) (0-0.2) K/uL Immature Gran # (Auto) (0.00-0.02) K/uL VBG pH 7.30 L (7.36-7.41) VBG pCO2 35 L (38-50) mmHg VBG pO2 25 mmHg VBG HCO3 17 mmol/L VBG O2 Saturation < 60.0 % VBG Base Excess -8.8 mEq/L Barometric Pressure 734.9 mm/Hg Sodium (136-145) mmol/L Potassium (3.5-5.1) mmol/L Chloride (98-107) mmol/L Carbon Dioxide (21-32) mmol/L Anion Gap (3-11) BUN (7-18) mg/dl Creatinine (0.6-1.2) mg/dl Est Cr Clr Drug Dosing ml/min Est GFR ( Amer) Est GFR (Non-Af Amer) BUN/Creatinine Ratio (10-20) Glucose (70-99) mg/dl POC Glucose (70-99) mg/dl Estimat Average Glucose Hemoglobin A1c Lactate (0.4-2.0) mmol/L Calcium (8.5-10.1) mg/dl Phosphorus (2.5-4.9) mg/dl Magnesium Total Bilirubin (0.2-1) mg/dl AST (15-37) U/L ALT (12-78) U/L Alkaline Phosphatase (45-117) U/L Total Creatine Kinase (26-192) U/L Troponin I (0-0.045) ng/ml Total Protein (6.4-8.2) gm/dl Albumin (3.4-5.0) gm/dl Globulin (2.5-4.0) gm/dl Albumin/Globulin Ratio (0.9-2) Lipase (73-393) U/L Beta-Hydroxybutyric Acd (0.2-2.81) mg/dl COVID-19 Eval [facility] SARS-CoV-2, RNA, NAAT NEGATIVE (NEGATIVE) 09/09/20 09/09/20 Range/Units 13:00 13:00 WBC 11.58 H (4.8-10.8) K/uL RBC 4.97 (4.2-5.4) M/uL Hgb 15.1 (12.0-16.0) g/dL Hct 43.9 (37-47) % MCV 88.3 (80-100) fL MCH 30.4 (25-34) pg MCHC 34.4 (32-36) g/dL RDW Std Deviation 40.1 (36.4-46.3) fL RDW Coeff of Jude 12.5 (11.5-14.5) % Plt Count 361 (130-400) K/uL MPV 9.4 (7.4-10.4) fL Immature Gran % (Auto) 0.3 % Neut % (Auto) 78.5 % Lymph % (Auto) 10.6 % [place] % (Auto) 10.1 % Eos % (Auto) 0.4 % Baso % (Auto) 0.1 % Neut # (Auto) 9.09 H (1.4-6.5) K/uL Lymph # (Auto) 1.23 (1.2-3.4) K/uL [place] # (Auto) 1.17 H (0.11-0.59) K/uL Eos # (Auto) 0.05 (0-0.5) K/uL Baso # (Auto) 0.01 (0-0.2) K/uL Immature Gran # (Auto) 0.03 H (0.00-0.02) K/uL VBG pH (7.36-7.41) VBG pCO2 (38-50) mmHg VBG pO2 mmHg VBG HCO3 mmol/L VBG O2 Saturation % VBG Base Excess mEq/L Barometric Pressure mm/Hg Sodium 128 L (136-145) mmol/L Potassium 4.1 (3.5-5.1) mmol/L Chloride 93 L (98-107) mmol/L Carbon Dioxide 15 L (21-32) mmol/L Anion Gap 20.0 H (3-11) BUN 16 (7-18) mg/dl Creatinine 1.08 (0.6-1.2) mg/dl Est Cr Clr Drug Dosing 37.0 ml/min Est GFR ( Amer) 55.4 Est GFR (Non-Af Amer) 47.8 BUN/Creatinine Ratio 14.6 (10-20) Glucose 407 H* (70-99) mg/dl POC Glucose (70-99) mg/dl Estimat Average Glucose Hemoglobin A1c Lactate (0.4-2.0) mmol/L Calcium 9.9 (8.5-10.1) mg/dl Phosphorus (2.5-4.9) mg/dl Magnesium Total Bilirubin 0.6 (0.2-1) mg/dl AST 11 L (15-37) U/L ALT 19 (12-78) U/L Alkaline Phosphatase 107 (45-117) U/L Total Creatine Kinase 39 (26-192) U/L Troponin I < 0.015 (0-0.045) ng/ml Total Protein 8.2 (6.4-8.2) gm/dl Albumin 3.1 L (3.4-5.0) gm/dl Globulin 5.1 H (2.5-4.0) gm/dl Albumin/Globulin Ratio 0.6 L (0.9-2) Lipase 142 (73-393) U/L Beta-Hydroxybutyric Acd (0.2-2.81) mg/dl COVID-19 Eval Order SARS-CoV-2, RNA, NAAT (NEGATIVE) Diagnostic Findings 1) XR ribs LT min 2V w CXR1V CLINICAL HISTORY: Left rib pain COMPARISON STUDY: June 2011 FINDINGS: The erect chest reveals no pneumothorax. There is no focal pulmonary consolidation. There is borderline elevation of the right hemidiaphragm. No left-sided rib fractures are visualized. There is a small peritendinous calcification within the left shoulder likely secondary to calcific tendinopathy. Multiple mild vertebral body compression deformities are steff pected. IMPRESSION: 1. No evidence of pneumothorax 2. No left-sided rib fractures identified 2) XR tibia fibula RT 2V CLINICAL HISTORY: Right omer pain. COMPARISON: None FINDINGS: Note is made of an acute oblique minimally displaced fracture the distal shaft of the right fibula which extends 3 cm proximal to the level of the tibiotalar articulation. No acute fracture of the right tibia is identified. IMPRESSION: Acute oblique minimally displaced fracture of the distal shaft of the right fibula. 3) XR ankle RT min 3V routine CLINICAL HISTORY: Right ankle pain. COMPARISON: None FINDINGS: Note is made of an acute minimally displaced oblique fracture of the distal shaft of the right fibula which extends 3.3 cm proximal to the level of the tibiotalar joint. There is slight medial ankle mortise widening. No acute fracture of the distal right tibia is noted. There is mild posterior and plantar calcaneal spurring. There is ankle soft tissue swelling. IMPRESSION: 1. Acute oblique minimally displaced fracture of the distal shaft of the right fibula. 2. Slight medial ankle mortise widening. 3. Ankle soft tissue swelling. 4) SINGLE VIEW PELVIS; 3 VIEWS RIGHT FEMUR CLINICAL HISTORY: Fall. Right leg pain. FINDINGS: An AP view of the pelvis with AP, frog-leg, and lateral views of the right femur are obtained. Correlation is made with pelvic CT dated 01/01/2012. The skeletal structures are osteopenic. There is no radiographic evidence of acute fracture involving the hips or bony pelvis. There is no radiographic evidence of right femoral fracture. Lumbosacral spondylosis is partially visualized. Sclerotic change is noted in the sacroiliac joints. Moderate degenerative joint space narrowing is present in both hips. The overlying soft tissues are within normal limits. The right knee joint is grossly maintained noting a joint effusion. IMPRESSION: 1. There is no radiographic evidence of acute fracture involving the hips or bony pelvis. 2. There is no radiographic evidence of right femoral fracture. 5) XR lumbar spine 2-3V CLINICAL HISTORY: lower back pain COMPARISON STUDY: January 01, 2012 FINDINGS: There are gas-filled small and large bowel loops, similar to the prior 2011 study. The bones are osteopenic. There are old superior endplate L1 and L2 compression deformities. There is a new age-indeterminate superior endplate L3 compression deformity. There is an old T12 compression deformity. Since the prior study the patient has developed a T11 compression fracture. This does not appear acute IMPRESSION: 1. Interval development of an age-indeterminate superior endplate L3 compression fracture 2. Interval development of a moderate T11 compression fracture. This does not appear acute 3. Chronic T12, L1 and L2 vertebral body compression deformities (1) Closed fibular fracture Encounter type: initial encounter Fibula location: lateral malleolus Fracture alignment: displaced Laterality: right Qualified Code(s): S82.61XA - Displaced fracture of lateral malleolus of right fibula, initial encounter for closed fracture (2) Fall Encounter type: initial encounter Qualified Code(s): W19.XXXA - Unspecified fall, initial encounter
[2020-09-09] MEDS ORDERED: INSULIN GLARGINE SOLOSTAR 100 UNITS/ML 3 ML PEN SC ONE (18:00)
[2020-09-09] MEDS ORDERED: ENOXAPARIN INJ 40 MG/0.4 ML SYR SQ SCH (18:00)
[2020-09-09] MEDS: oxyCODONE HCL IR 5 MG TAB (IMMEDIATE RELEASE) PO PRN (18:07)
[2020-09-09] MEDS: INSULIN ASPART 100 UNITS/ML 3 ML PEN SC SCH ×2 (18:29→20:25)
[2020-09-09] MEDS: LIDOCAINE 5% 1 PATCH TD SCH (18:33)
[2020-09-09] MEDS ORDERED: PNEUMOCOCCAL ADMINISTRATION CHARGE ONE (20:03)
[2020-09-09] MEDS ORDERED: PNEUMOCOCCAL POLYSACCHARIDES 25 MCG/0.5 ML VIAL/SYR IM ONE (20:03)
[2020-09-09] MEDS ORDERED: METOPROLOL TARTRATE 1 MG/ML VIAL IV STA (20:08)
[2020-09-09] MEDS ORDERED: dilTIAZem HCl 5 MG/ML 5 ML VIAL IV STA (20:31)
[2020-09-09] MEDS ORDERED: STAT IV Infusion **Titration per Protocol STA (20:31)
[2020-09-09] MEDS ORDERED: INSULIN HUMAN REGULAR PER UNIT 3 UNITS in SYRINGE 2.97 ML IV ONE (20:45)
[2020-09-09] MEDS: MAGNESIUM SULFATE / D5W 1 GM/100 ML BAG IV SCH ×2 (21:10→23:15)
[2020-09-09 21:25] LABS: BUN Creatinine Ratio 17.5 (10-20); Calcium 8.2 mg/dl (8.5-10.1); Chloride 108 mmol/L (98-107); Creatinine Clr Calc Pharmacy 49.9 ml/min; Est GFR (African American) 79.6; Est GFR (Non-African American) 68.7; Phosphorus 2.6 mg/dl (2.5-4.9); Potassium 3.5 mmol/L (3.5-5.1); Troponin I < 0.015 ng/ml (0-0.045)
[2020-09-09 21:36] LABS: Blood Urea Nitrogen 14 mg/dl (7-18); Carbon Dioxide 17 mmol/L (21-32); Glucose 309 mg/dl (70-99); Magnesium 1.7 mg/dl (1.8-2.4); Sodium 139 mmol/L (136-145)
[2020-09-09] MEDS ORDERED: Heparin IV Standard *NO* Bolus IV ONE (21:59)
[2020-09-09] MEDS: LACTATED RINGER'S 1,000 ML IV SCH (21:59)
[2020-09-09] MEDS ORDERED: POTASSIUM CHLORIDE / WTR 10 MEQ/100 ML PLCT IV ONE (22:00)
[2020-09-09] MEDS ORDERED: POTASSIUM CHLORIDE CRTAB 20 MEQ TABCR PO ONE (22:00)
[2020-09-09 22:04] LABS: Beta-Hydroxybutyrate 36.47 mg/dl (0.2-2.81)
[2020-09-09] MEDS ORDERED: POTASSIUM PHOS 3 MMOL/1 ML INFUSION IV STA (22:59)
[2020-09-09] MEDS ORDERED: POTASSIUM CHLORIDE 10 MEQ TABCR PO ONE (23:15)
[2020-09-09] MEDS: dilTIAZem HCL 125 MG in DEXTROSE 5% 100 ML IV SCH (23:19)
[2020-09-09] MEDS ORDERED: POTASSIUM PHOSPHATE 21 MMOL in SODIUM CHLORIDE 0.9% 500 ML IV ONE (23:30)
[2020-09-09 23:44] LABS: INR 1.3 (0.9-1.1); Partial Thromboplastin Time 27.5 Seconds (21.0-31.0); Prothrombin Time 12.6 Seconds (9.0-12.0)
[2020-09-09] MEDS: HEPARIN SODIUM/DEXTROSE 25,000 UNITS/500 ML BAG IV SCH (23:51)
--- NOTE | 2020-09-10 00:08 | Communication Note ---
Date of Service: September 10, 2020 Called to patient's bedside by nursing around 8PM due to patient being in AFib with RVR to HR 160s, asymptomatic. Patient with a known history of AFib however not on rate control of AC at home. Patient's HR came down to 140s shortly thereafter without intervention. Given Lopressor 5mg IV x1 without change in HR. Mag Sulfate 2g IV ordered. Given Diltiazem 15mg IV x1 with decrease in HR to 80- 90s. Around 10pm patient's HR had crept back up into 120s, still asymptomatic. Decision was made to transfer patient to PCU for diltiazem bolus and drip. Drip titrated up and patient _. Resident Activity Tracking Resident Involvement: Resident Care Provided Care Provided: Adult Hospital Medicine
[2020-09-10] MEDS: INSULIN ASPART 100 UNITS/ML 3 ML PEN SC SCH ×6 (00:40→20:46)
[2020-09-10 00:56] LABS: Base Excess VBG -5.8 mEq/L; HCO3 VBG 19 mmol/L; PCO2 VBG 37 mmHg (38-50); PO2 VBG 37 mmHg; pH VBG 7.34 (7.36-7.41)
[2020-09-10 01:13] LABS: BUN Creatinine Ratio 16.5 (10-20); Calcium 8.3 mg/dl (8.5-10.1); Creatinine Clr Calc Pharmacy 48.1 ml/min; Est GFR (African American) 76.1; Est GFR (Non-African American) 65.7; Potassium 3.5 mmol/L (3.5-5.1)
[2020-09-10 01:39] LABS: Appearance Urine Clear (Clear); Bilirubin Urine Negative (Negative); Blood Urine 2+ (Negative); Color Urine Yellow; Glucose Urine UA 1+ (Negative); Ketones Urine 2+ (Negative); Leukocyte Esterase Urine Negative (Negative); Nitrite Urine Negative (Negative); Protein Urine Negative (Negative); Urobilinogen Urine Negative (Negative); pH Urine 5.5 (4.5-7.5)
[2020-09-10 01:48] LABS: Bacteria Urine Negative (Negative); Epithelial Cell Urine 0-5 /lpf (0-5); RBC Urine 0-4 /hpf (0-4)
[2020-09-10 01:49] LABS: Amorphous Sediment Urine Present (None Prsent)
[2020-09-10] MEDS: LACTATED RINGER'S 1,000 ML IV SCH ×2 (04:50→11:03)
[2020-09-10 07:03] LABS: Partial Thromboplastin Ratio 1.7
[2020-09-10 07:08] LABS: Partial Thromboplastin Time 45.4 Seconds (21.0-31.0)
[2020-09-10 07:13] LABS: Estimated Average Glucose 326 mg/dl
[2020-09-10 07:15] LABS: BUN Creatinine Ratio 14.8 (10-20); Calcium 8.1 mg/dl (8.5-10.1); Creatinine Clr Calc Pharmacy 50.5 ml/min; Est GFR (African American) 79.6; Est GFR (Non-African American) 68.7; Potassium 3.8 mmol/L (3.5-5.1)
[2020-09-10 07:25] LABS: Thyroid Stimulating Hormone 1.11 uIu/ml (0.300-4.500)
[2020-09-10] MEDS: dilTIAZem HCL 125 MG in DEXTROSE 5% 100 ML IV SCH ×2 (07:39→15:50)
[2020-09-10] MEDS: LIDOCAINE 5% 1 PATCH TD SCH (08:00)
[2020-09-10] MEDS: oxyCODONE HCL IR 5 MG TAB (IMMEDIATE RELEASE) PO PRN ×2 (08:02→14:10)
--- NOTE | 2020-09-10 08:26 | Electrocardiogram Report ---
Test Reason : Blood Pressure : / mmHG Vent. Rate : 158 BPM Atrial Rate : 156 BPM P-R Int : 000 ms QRS Dur : 098 ms QT Int : 326 ms P-R-T Axes : 000 -72 064 degrees QTc Int : 528 ms Atrial fibrillation with rapid ventricular response Left axis deviation Low voltage QRS Incomplete right bundle branch block Possible Old Inferior infarct Abnormal ECG When compared with ECG of 09-SEP-2020 13:27, Sinus rhythm no longer present HR has increased by 63 bpm Criteria for Anterior infarct no longer present Criteria for Inferior infarct now present Confirmed by Jose Brady ([id number]) on 09/10/2020 8:25:54 AM Referred By: REFERRED SELF Confirmed By:Jose Brady
[2020-09-10] MEDS ORDERED: INSULIN GLARGINE SOLOSTAR 100 UNITS/ML 3 ML PEN SC SCH (09:00)
--- NOTE | 2020-09-10 11:33 | Orthopedic Progress Note ---
Date of Service September 10, 2020 Assessment & Plan (1) Closed fibular fracture: Continue PT/OT. Continue nonweightbearing right lower extremity. Use walker to assist with ambulation. She may also need assistance of another person. Rest, ice, elevation as needed for pain and swelling. New plaster splint applied to right lower extremity, posterior splint with sugar you tong. Patient tolerated splint application well. Encouraged elevation of her right lower extremity above her heart to help with swelling. Ice to right knee as needed. We will obtain x-rays of the right ankle in the splint. We will also order x-rays of the right knee as well as an MRI of the right knee to rule out quadricep tendon injury due to her inability to straight leg raise. This could be due to pain or quad inhibition due to the effusion of her right knee. MRI will help determine this further. Continue incentive spirometer due to the chest wall contusion. Patient understands and agrees. All questions were answered today. We will follow up with patient once the x-rays and MRI completed. If quadriceps tendon rupture then she will need surgical intervention. Continue regular diet for now. Will make n.p.o. if surgery necessary. I, Dr. Benavidez, saw and examined the patient and discussed the management with my PA. I reviewed my PAs note and agree with the documented findings and the plan of care I developed. (2) Vertebral compression fracture: RICE Pain control per primary service. (3) Fall: Admission and Anticipated Discharge Date Admission Date: September 09, 2020 Subjective Patient resting in bed, minimal pain in right leg or ribs when lying still. Pain in right ankle and right knee. S/P fall. Seen today by myself and Dr. Benavidez. Physical Exam Physical Exam: Right Knee: small to moderate effusion. ecchymosis anterior knee. inability to straight leg raise right leg. Tenderness with palpation about the right knee. Stable ligamentous exam with varus and valgus stress. Tolerates logrolling of her right hip. Exam of her right ankle: Ecchymosis both medially and laterally of her right ankle. Achilles is intact. Tenderness along the medial and lateral malleoli. Skin is intact. Distal pulses are 1+. Sensation is normal throughout her right foot. Pain with any type of range of motion of her ankle. Toes move well and are not edematous. No calf tenderness. Results & Data ([facility]) Vital Signs (Past 12 Hours) Vital Signs Temp Pulse Pulse Resp BP Pulse Ox 09/10/20 11:10 36.6 C 103 H 17 116/71 92 09/10/20 09:00 96 H 102/68 09/10/20 07:17 36.6 C 95 H 19 91/58 L 94 09/10/20 05:00 36.4 C L 101 H 20 101/93 93 09/10/20 00:30 121 H 09/09/20 23:55 111/72 Laboratory Results 09/10/20 09/10/20 09/10/20 Range/Units 11:09 07:15 06:10 WBC (4.8-10.8) K/uL RBC (4.2-5.4) M/uL Hgb (12.0-16.0) g/dL Hct (37-47) % MCV (80-100) fL MCH (25-34) pg MCHC (32-36) g/dL RDW Std Deviation (36.4-46.3) fL RDW Coeff of Jude (11.5-14.5) % Plt Count (130-400) K/uL MPV (7.4-10.4) fL Immature Gran % (Auto) % Neut % (Auto) % Lymph % (Auto) % [place] % (Auto) % Eos % (Auto) % Baso % (Auto) % Neut # (Auto) (1.4-6.5) K/uL Lymph # (Auto) (1.2-3.4) K/uL [place] # (Auto) (0.11-0.59) K/uL Eos # (Auto) (0-0.5) K/uL Baso # (Auto) (0-0.2) K/uL Immature Gran # (Auto) (0.00-0.02) K/uL PT (9.0-12.0) Seconds INR (0.9-1.1) APTT 45.4 H* (21.0-31.0) Seconds PTT Ratio 1.7 VBG pH (7.36-7.41) VBG pCO2 (38-50) mmHg VBG pO2 mmHg VBG HCO3 mmol/L VBG O2 Saturation % VBG Base Excess mEq/L Barometric Pressure mm/Hg Sodium (136-145) mmol/L Potassium (3.5-5.1) mmol/L Chloride (98-107) mmol/L Carbon Dioxide (21-32) mmol/L Anion Gap (3-11) BUN (7-18) mg/dl Creatinine (0.6-1.2) mg/dl Est Cr Clr Drug Dosing ml/min Est GFR ( Amer) Est GFR (Non-Af Amer) BUN/Creatinine Ratio (10-20) Glucose (70-99) mg/dl POC Glucose 282 H 210 H (70-99) mg/dl Estimat Average Glucose mg/dl Hemoglobin A1c (4.5-5.6) % Lactate (0.4-2.0) mmol/L Calcium (8.5-10.1) mg/dl Phosphorus (2.5-4.9) mg/dl Magnesium Total Bilirubin (0.2-1) mg/dl AST (15-37) U/L ALT (12-78) U/L Alkaline Phosphatase (45-117) U/L Total Creatine Kinase (26-192) U/L Troponin I (0-0.045) ng/ml Total Protein (6.4-8.2) gm/dl Albumin (3.4-5.0) gm/dl Globulin (2.5-4.0) gm/dl Albumin/Globulin Ratio (0.9-2) Lipase (73-393) U/L 25-OH Vitamin D Total (30-100) ng/ml Beta-Hydroxybutyric Acd (0.2-2.81) mg/dl TSH (0.300-4.500) uIu/ml Urine Color Urine Appearance (Clear) Urine pH (4.5-7.5) Ur Specific [place] (1.000-1.030) Urine Protein (Negative) Urine Glucose (UA) (Negative) Urine Ketones (Negative) Urine Blood (Negative) Urine Nitrite (Negative) Urine Bilirubin (Negative) Urine Urobilinogen (Negative) Ur Leukocyte Esterase (Negative) Urine RBC (0-4) /hpf Urine WBC (0-5) /hpf Ur Epithelial Cells (0-5) /lpf Amorphous Sediment (None Prsent) Urine Bacteria (Negative) COVID-19 Eval Order SARS-CoV-2, RNA, NAAT (NEGATIVE) 09/10/20 09/10/20 09/10/20 Range/Units 06:10 06:10 04:07 WBC (4.8-10.8) K/uL RBC (4.2-5.4) M/uL Hgb (12.0-16.0) g/dL Hct (37-47) % MCV (80-100) fL MCH (25-34) pg MCHC (32-36) g/dL RDW Std Deviation (36.4-46.3) fL RDW Coeff of Jude (11.5-14.5) % Plt Count (130-400) K/uL MPV (7.4-10.4) fL Immature Gran % (Auto) % Neut % (Auto) % Lymph % (Auto) % [place] % (Auto) % Eos % (Auto) % Baso % (Auto) % Neut # (Auto) (1.4-6.5) K/uL Lymph # (Auto) (1.2-3.4) K/uL [place] # (Auto) (0.11-0.59) K/uL Eos # (Auto) (0-0.5) K/uL Baso # (Auto) (0-0.2) K/uL Immature Gran # (Auto) (0.00-0.02) K/uL PT (9.0-12.0) Seconds INR (0.9-1.1) APTT (21.0-31.0) Seconds PTT Ratio VBG pH (7.36-7.41) VBG pCO2 (38-50) mmHg VBG pO2 mmHg VBG HCO3 mmol/L VBG O2 Saturation % VBG Base Excess mEq/L Barometric Pressure mm/Hg Sodium 139 (136-145) mmol/L Potassium 3.8 (3.5-5.1) mmol/L Chloride 108 H (98-107) mmol/L Carbon Dioxide 23 (21-32) mmol/L Anion Gap 8.0 (3-11) BUN 12 (7-18) mg/dl Creatinine 0.80 (0.6-1.2) mg/dl Est Cr Clr Drug Dosing 50.5 ml/min Est GFR ( Amer) 79.6 Est GFR (Non-Af Amer) 68.7 BUN/Creatinine Ratio 14.8 (10-20) Glucose 220 H (70-99) mg/dl POC Glucose 231 H (70-99) mg/dl Estimat Average Glucose mg/dl Hemoglobin A1c (4.5-5.6) % Lactate (0.4-2.0) mmol/L Calcium 8.1 L (8.5-10.1) mg/dl Phosphorus (2.5-4.9) mg/dl Magnesium Total Bilirubin (0.2-1) mg/dl AST (15-37) U/L ALT (12-78) U/L Alkaline Phosphatase (45-117) U/L Total Creatine Kinase (26-192) U/L Troponin I (0-0.045) ng/ml Total Protein (6.4-8.2) gm/dl Albumin (3.4-5.0) gm/dl Globulin (2.5-4.0) gm/dl Albumin/Globulin Ratio (0.9-2) Lipase (73-393) U/L 25-OH Vitamin D Total 14.6 L (30-100) ng/ml Beta-Hydroxybutyric Acd (0.2-2.81) mg/dl TSH 1.110 (0.300-4.500) uIu/ml Urine Color Urine Appearance (Clear) Urine pH (4.5-7.5) Ur Specific [place] (1.000-1.030) Urine Protein (Negative) Urine Glucose (UA) (Negative) Urine Ketones (Negative) Urine Blood (Negative) Urine Nitrite (Negative) Urine Bilirubin (Negative) Urine Urobilinogen (Negative) Ur Leukocyte Esterase (Negative) Urine RBC (0-4) /hpf Urine WBC (0-5) /hpf Ur Epithelial Cells (0-5) /lpf Amorphous Sediment (None Prsent) Urine Bacteria (Negative) COVID-19 Eval Order SARS-CoV-2, RNA, NAAT (NEGATIVE) 09/10/20 09/10/20 09/10/20 Range/Units 01:30 00:44 00:44 WBC (4.8-10.8) K/uL RBC (4.2-5.4) M/uL Hgb (12.0-16.0) g/dL Hct (37-47) % MCV (80-100) fL MCH (25-34) pg MCHC (32-36) g/dL RDW Std Deviation (36.4-46.3) fL RDW Coeff of Jude (11.5-14.5) % Plt Count (130-400) K/uL MPV (7.4-10.4) fL Immature Gran % (Auto) % Neut % (Auto) % Lymph % (Auto) % [place] % (Auto) % Eos % (Auto) % Baso % (Auto) % Neut # (Auto) (1.4-6.5) K/uL Lymph # (Auto) (1.2-3.4) K/uL [place] # (Auto) (0.11-0.59) K/uL Eos # (Auto) (0-0.5) K/uL Baso # (Auto) (0-0.2) K/uL Immature Gran # (Auto) (0.00-0.02) K/uL PT (9.0-12.0) Seconds INR (0.9-1.1) APTT (21.0-31.0) Seconds PTT Ratio VBG pH 7.34 L (7.36-7.41) VBG pCO2 37 L (38-50) mmHg VBG pO2 37 mmHg VBG HCO3 19 mmol/L VBG O2 Saturation 71.0 % VBG Base Excess -5.8 mEq/L Barometric Pressure mm/Hg Sodium 139 (136-145) mmol/L Potassium 3.5 (3.5-5.1) mmol/L Chloride 108 H (98-107) mmol/L Carbon Dioxide 22 (21-32) mmol/L Anion Gap 9.0 (3-11) BUN 14 (7-18) mg/dl Creatinine 0.83 (0.6-1.2) mg/dl Est Cr Clr Drug Dosing 48.1 ml/min Est GFR ( Amer) 76.1 Est GFR (Non-Af Amer) 65.7 BUN/Creatinine Ratio 16.5 (10-20) Glucose 202 H (70-99) mg/dl POC Glucose (70-99) mg/dl Estimat Average Glucose mg/dl Hemoglobin A1c (4.5-5.6) % Lactate (0.4-2.0) mmol/L Calcium 8.3 L (8.5-10.1) mg/dl Phosphorus (2.5-4.9) mg/dl Magnesium Total Bilirubin (0.2-1) mg/dl AST (15-37) U/L ALT (12-78) U/L Alkaline Phosphatase (45-117) U/L Total Creatine Kinase (26-192) U/L Troponin I (0-0.045) ng/ml Total Protein (6.4-8.2) gm/dl Albumin (3.4-5.0) gm/dl Globulin (2.5-4.0) gm/dl Albumin/Globulin Ratio (0.9-2) Lipase (73-393) U/L 25-OH Vitamin D Total (30-100) ng/ml Beta-Hydroxybutyric Acd (0.2-2.81) mg/dl TSH (0.300-4.500) uIu/ml Urine Color Yellow Urine Appearance Clear (Clear) Urine pH 5.5 (4.5-7.5) Ur Specific [place] 1.020 (1.000-1.030) Urine Protein Negative (Negative) Urine Glucose (UA) 1+ H (Negative) Urine Ketones 2+ H (Negative) Urine Blood 2+ H (Negative) Urine Nitrite Negative (Negative) Urine Bilirubin Negative (Negative) Urine Urobilinogen Negative (Negative) Ur Leukocyte Esterase Negative (Negative) Urine RBC 0-4 (0-4) /hpf Urine WBC 5-10 H (0-5) /hpf Ur Epithelial Cells 0-5 (0-5) /lpf Amorphous Sediment Present A (None Prsent) Urine Bacteria Negative (Negative) COVID-19 Eval Order SARS-CoV-2, RNA, NAAT (NEGATIVE) 09/10/20 09/09/20 09/09/20 Range/Units 00:16 23:12 20:34 WBC (4.8-10.8) K/uL RBC (4.2-5.4) M/uL Hgb (12.0-16.0) g/dL Hct (37-47) % MCV (80-100) fL MCH (25-34) pg MCHC (32-36) g/dL RDW Std Deviation (36.4-46.3) fL RDW Coeff of Jude (11.5-14.5) % Plt Count (130-400) K/uL MPV (7.4-10.4) fL Immature Gran % (Auto) % Neut % (Auto) % Lymph % (Auto) % [place] % (Auto) % Eos % (Auto) % Baso % (Auto) % Neut # (Auto) (1.4-6.5) K/uL Lymph # (Auto) (1.2-3.4) K/uL [place] # (Auto) (0.11-0.59) K/uL Eos # (Auto) (0-0.5) K/uL Baso # (Auto) (0-0.2) K/uL Immature Gran # (Auto) (0.00-0.02) K/uL PT 12.6 H (9.0-12.0) Seconds INR 1.3 H (0.9-1.1) APTT 27.5 (21.0-31.0) Seconds PTT Ratio 1.0 VBG pH (7.36-7.41) VBG pCO2 (38-50) mmHg VBG pO2 mmHg VBG HCO3 mmol/L VBG O2 Saturation % VBG Base Excess mEq/L Barometric Pressure mm/Hg Sodium (136-145) mmol/L Potassium (3.5-5.1) mmol/L Chloride (98-107) mmol/L Carbon Dioxide (21-32) mmol/L Anion Gap (3-11) BUN (7-18) mg/dl Creatinine (0.6-1.2) mg/dl Est Cr Clr Drug Dosing ml/min Est GFR ( Amer) Est GFR (Non-Af Amer) BUN/Creatinine Ratio (10-20) Glucose (70-99) mg/dl POC Glucose 187 H (70-99) mg/dl Estimat Average Glucose 326 mg/dl Hemoglobin A1c 13.0 H (4.5-5.6) % Lactate (0.4-2.0) mmol/L Calcium (8.5-10.1) mg/dl Phosphorus (2.5-4.9) mg/dl Magnesium Total Bilirubin (0.2-1) mg/dl AST (15-37) U/L ALT (12-78) U/L Alkaline Phosphatase (45-117) U/L Total Creatine Kinase (26-192) U/L Troponin I (0-0.045) ng/ml Total Protein (6.4-8.2) gm/dl Albumin (3.4-5.0) gm/dl Globulin (2.5-4.0) gm/dl Albumin/Globulin Ratio (0.9-2) Lipase (73-393) U/L 25-OH Vitamin D Total (30-100) ng/ml Beta-Hydroxybutyric Acd (0.2-2.81) mg/dl TSH (0.300-4.500) uIu/ml Urine Color Urine Appearance (Clear) Urine pH (4.5-7.5) Ur Specific [place] (1.000-1.030) Urine Protein (Negative) Urine Glucose (UA) (Negative) Urine Ketones (Negative) Urine Blood (Negative) Urine Nitrite (Negative) Urine Bilirubin (Negative) Urine Urobilinogen (Negative) Ur Leukocyte Esterase (Negative) Urine RBC (0-4) /hpf Urine WBC (0-5) /hpf Ur Epithelial Cells (0-5) /lpf Amorphous Sediment (None Prsent) Urine Bacteria (Negative) COVID-19 Eval Order SARS-CoV-2, RNA, NAAT (NEGATIVE) 09/09/20 09/09/20 09/09/20 Range/Units 20:28 20:08 20:07 WBC (4.8-10.8) K/uL RBC (4.2-5.4) M/uL Hgb (12.0-16.0) g/dL Hct (37-47) % MCV (80-100) fL MCH (25-34) pg MCHC (32-36) g/dL RDW Std Deviation (36.4-46.3) fL RDW Coeff of Jude (11.5-14.5) % Plt Count (130-400) K/uL MPV (7.4-10.4) fL Immature Gran % (Auto) % Neut % (Auto) % Lymph % (Auto) % [place] % (Auto) % Eos % (Auto) % Baso % (Auto) % Neut # (Auto) (1.4-6.5) K/uL Lymph # (Auto) (1.2-3.4) K/uL [place] # (Auto) (0.11-0.59) K/uL Eos # (Auto) (0-0.5) K/uL Baso # (Auto) (0-0.2) K/uL Immature Gran # (Auto) (0.00-0.02) K/uL PT (9.0-12.0) Seconds INR (0.9-1.1) APTT (21.0-31.0) Seconds PTT Ratio VBG pH (7.36-7.41) VBG pCO2 (38-50) mmHg VBG pO2 mmHg VBG HCO3 mmol/L VBG O2 Saturation % VBG Base Excess mEq/L Barometric Pressure mm/Hg Sodium 139 D (136-145) mmol/L Potassium 3.5 (3.5-5.1) mmol/L Chloride 108 H (98-107) mmol/L Carbon Dioxide 17 L (21-32) mmol/L Anion Gap 15.0 H (3-11) BUN 14 (7-18) mg/dl Creatinine 0.80 (0.6-1.2) mg/dl Est Cr Clr Drug Dosing 49.9 ml/min Est GFR ( Amer) 79.6 Est GFR (Non-Af Amer) 68.7 BUN/Creatinine Ratio 17.5 (10-20) Glucose 309 H* (70-99) mg/dl POC Glucose 338 H* 337 H* (70-99) mg/dl Estimat Average Glucose mg/dl Hemoglobin A1c (4.5-5.6) % Lactate (0.4-2.0) mmol/L Calcium 8.2 L D (8.5-10.1) mg/dl Phosphorus 2.6 (2.5-4.9) mg/dl Magnesium 1.7 L Total Bilirubin (0.2-1) mg/dl AST (15-37) U/L ALT (12-78) U/L Alkaline Phosphatase (45-117) U/L Total Creatine Kinase (26-192) U/L Troponin I < 0.015 (0-0.045) ng/ml Total Protein (6.4-8.2) gm/dl Albumin (3.4-5.0) gm/dl Globulin (2.5-4.0) gm/dl Albumin/Globulin Ratio (0.9-2) Lipase (73-393) U/L 25-OH Vitamin D Total (30-100) ng/ml Beta-Hydroxybutyric Acd 36.47 H (0.2-2.81) mg/dl TSH (0.300-4.500) uIu/ml Urine Color Urine Appearance (Clear) Urine pH (4.5-7.5) Ur Specific [place] (1.000-1.030) Urine Protein (Negative) Urine Glucose (UA) (Negative) Urine Ketones (Negative) Urine Blood (Negative) Urine Nitrite (Negative) Urine Bilirubin (Negative) Urine Urobilinogen (Negative) Ur Leukocyte Esterase (Negative) Urine RBC (0-4) /hpf Urine WBC (0-5) /hpf Ur Epithelial Cells (0-5) /lpf Amorphous Sediment (None Prsent) Urine Bacteria (Negative) COVID-19 Eval Order SARS-CoV-2, RNA, NAAT (NEGATIVE) 09/09/20 09/09/20 09/09/20 Range/Units 17:14 17:14 15:42 WBC (4.8-10.8) K/uL RBC (4.2-5.4) M/uL Hgb (12.0-16.0) g/dL Hct (37-47) % MCV (80-100) fL MCH (25-34) pg MCHC (32-36) g/dL RDW Std Deviation (36.4-46.3) fL RDW Coeff of Jude (11.5-14.5) % Plt Count (130-400) K/uL MPV (7.4-10.4) fL Immature Gran % (Auto) % Neut % (Auto) % Lymph % (Auto) % [place] % (Auto) % Eos % (Auto) % Baso % (Auto) % Neut # (Auto) (1.4-6.5) K/uL Lymph # (Auto) (1.2-3.4) K/uL [place] # (Auto) (0.11-0.59) K/uL Eos # (Auto) (0-0.5) K/uL Baso # (Auto) (0-0.2) K/uL Immature Gran # (Auto) (0.00-0.02) K/uL PT (9.0-12.0) Seconds INR (0.9-1.1) APTT (21.0-31.0) Seconds PTT Ratio VBG pH (7.36-7.41) VBG pCO2 (38-50) mmHg VBG pO2 mmHg VBG HCO3 mmol/L VBG O2 Saturation % VBG Base Excess mEq/L Barometric Pressure mm/Hg Sodium (136-145) mmol/L Potassium (3.5-5.1) mmol/L Chloride (98-107) mmol/L Carbon Dioxide (21-32) mmol/L Anion Gap (3-11) BUN (7-18) mg/dl Creatinine (0.6-1.2) mg/dl Est Cr Clr Drug Dosing ml/min Est GFR ( Amer) Est GFR (Non-Af Amer) BUN/Creatinine Ratio (10-20) Glucose (70-99) mg/dl POC Glucose 287 H 300 H 366 H* (70-99) mg/dl Estimat Average Glucose mg/dl Hemoglobin A1c (4.5-5.6) % Lactate (0.4-2.0) mmol/L Calcium (8.5-10.1) mg/dl Phosphorus (2.5-4.9) mg/dl Magnesium Total Bilirubin (0.2-1) mg/dl AST (15-37) U/L ALT (12-78) U/L Alkaline Phosphatase (45-117) U/L Total Creatine Kinase (26-192) U/L Troponin I (0-0.045) ng/ml Total Protein (6.4-8.2) gm/dl Albumin (3.4-5.0) gm/dl Globulin (2.5-4.0) gm/dl Albumin/Globulin Ratio (0.9-2) Lipase (73-393) U/L 25-OH Vitamin D Total (30-100) ng/ml Beta-Hydroxybutyric Acd (0.2-2.81) mg/dl TSH (0.300-4.500) uIu/ml Urine Color Urine Appearance (Clear) Urine pH (4.5-7.5) Ur Specific [place] (1.000-1.030) Urine Protein (Negative) Urine Glucose (UA) (Negative) Urine Ketones (Negative) Urine Blood (Negative) Urine Nitrite (Negative) Urine Bilirubin (Negative) Urine Urobilinogen (Negative) Ur Leukocyte Esterase (Negative) Urine RBC (0-4) /hpf Urine WBC (0-5) /hpf Ur Epithelial Cells (0-5) /lpf Amorphous Sediment (None Prsent) Urine Bacteria (Negative) COVID-19 Eval Order SARS-CoV-2, RNA, NAAT (NEGATIVE) 02/09/21 02/09/21 02/09/21 Range/Units 14:55 14:54 14:54 WBC (4.8-10.8) K/uL RBC (4.2-5.4) M/uL Hgb (12.0-16.0) g/dL Hct (37-47) % MCV (80-100) fL MCH (25-34) pg MCHC (32-36) g/dL RDW Std Deviation (36.4-46.3) fL RDW Coeff of Jude (11.5-14.5) % Plt Count (130-400) K/uL MPV (7.4-10.4) fL Immature Gran % (Auto) % Neut % (Auto) % Lymph % (Auto) % [place] % (Auto) % Eos % (Auto) % Baso % (Auto) % Neut # (Auto) (1.4-6.5) K/uL Lymph # (Auto) (1.2-3.4) K/uL [place] # (Auto) (0.11-0.59) K/uL Eos # (Auto) (0-0.5) K/uL Baso # (Auto) (0-0.2) K/uL Immature Gran # (Auto) (0.00-0.02) K/uL PT (9.0-12.0) Seconds INR (0.9-1.1) APTT (21.0-31.0) Seconds PTT Ratio VBG pH 7.30 L (7.36-7.41) VBG pCO2 35 L (38-50) mmHg VBG pO2 25 mmHg VBG HCO3 17 mmol/L VBG O2 Saturation < 60.0 % VBG Base Excess -8.8 mEq/L Barometric Pressure 734.9 mm/Hg Sodium (136-145) mmol/L Potassium (3.5-5.1) mmol/L Chloride (98-107) mmol/L Carbon Dioxide (21-32) mmol/L Anion Gap (3-11) BUN (7-18) mg/dl Creatinine (0.6-1.2) mg/dl Est Cr Clr Drug Dosing ml/min Est GFR ( Amer) Est GFR (Non-Af Amer) BUN/Creatinine Ratio (10-20) Glucose (70-99) mg/dl POC Glucose (70-99) mg/dl Estimat Average Glucose mg/dl Hemoglobin A1c (4.5-5.6) % Lactate 1.9 (0.4-2.0) mmol/L Calcium (8.5-10.1) mg/dl Phosphorus 3.2 (2.5-4.9) mg/dl Magnesium TNP Total Bilirubin (0.2-1) mg/dl AST (15-37) U/L ALT (12-78) U/L Alkaline Phosphatase (45-117) U/L Total Creatine Kinase (26-192) U/L Troponin I (0-0.045) ng/ml Total Protein (6.4-8.2) gm/dl Albumin (3.4-5.0) gm/dl Globulin (2.5-4.0) gm/dl Albumin/Globulin Ratio (0.9-2) Lipase (73-393) U/L 25-OH Vitamin D Total (30-100) ng/ml Beta-Hydroxybutyric Acd TNP (0.2-2.81) mg/dl TSH (0.300-4.500) uIu/ml Urine Color Urine Appearance (Clear) Urine pH (4.5-7.5) Ur Specific [place] (1.000-1.030) Urine Protein (Negative) Urine Glucose (UA) (Negative) Urine Ketones (Negative) Urine Blood (Negative) Urine Nitrite (Negative) Urine Bilirubin (Negative) Urine Urobilinogen (Negative) Ur Leukocyte Esterase (Negative) Urine RBC (0-4) /hpf Urine WBC (0-5) /hpf Ur Epithelial Cells (0-5) /lpf Amorphous Sediment (None Prsent) Urine Bacteria (Negative) COVID-19 Eval Order SARS-CoV-2, RNA, NAAT (NEGATIVE) 09/09/20 09/09/20 09/09/20 Range/Units 13:20 13:20 13:00 WBC (4.8-10.8) K/uL RBC (4.2-5.4) M/uL Hgb (12.0-16.0) g/dL Hct (37-47) % MCV (80-100) fL MCH (25-34) pg MCHC (32-36) g/dL RDW Std Deviation (36.4-46.3) fL RDW Coeff of Jude (11.5-14.5) % Plt Count (130-400) K/uL MPV (7.4-10.4) fL Immature Gran % (Auto) % Neut % (Auto) % Lymph % (Auto) % [place] % (Auto) % Eos % (Auto) % Baso % (Auto) % Neut # (Auto) (1.4-6.5) K/uL Lymph # (Auto) (1.2-3.4) K/uL [place] # (Auto) (0.11-0.59) K/uL Eos # (Auto) (0-0.5) K/uL Baso # (Auto) (0-0.2) K/uL Immature Gran # (Auto) (0.00-0.02) K/uL PT (9.0-12.0) Seconds INR (0.9-1.1) APTT (21.0-31.0) Seconds PTT Ratio VBG pH (7.36-7.41) VBG pCO2 (38-50) mmHg VBG pO2 mmHg VBG HCO3 mmol/L VBG O2 Saturation % VBG Base Excess mEq/L Barometric Pressure mm/Hg Sodium 128 L (136-145) mmol/L Potassium 4.1 (3.5-5.1) mmol/L Chloride 93 L (98-107) mmol/L Carbon Dioxide 15 L (21-32) mmol/L Anion Gap 20.0 H (3-11) BUN 16 (7-18) mg/dl Creatinine 1.08 (0.6-1.2) mg/dl Est Cr Clr Drug Dosing 37.0 ml/min Est GFR ( Amer) 55.4 Est GFR (Non-Af Amer) 47.8 BUN/Creatinine Ratio 14.6 (10-20) Glucose 407 H* (70-99) mg/dl POC Glucose (70-99) mg/dl Estimat Average Glucose mg/dl Hemoglobin A1c (4.5-5.6) % Lactate (0.4-2.0) mmol/L Calcium 9.9 (8.5-10.1) mg/dl Phosphorus (2.5-4.9) mg/dl Magnesium Total Bilirubin 0.6 (0.2-1) mg/dl AST 11 L (15-37) U/L ALT 19 (12-78) U/L Alkaline Phosphatase 107 (45-117) U/L Total Creatine Kinase 39 (26-192) U/L Troponin I < 0.015 (0-0.045) ng/ml Total Protein 8.2 (6.4-8.2) gm/dl Albumin 3.1 L (3.4-5.0) gm/dl Globulin 5.1 H (2.5-4.0) gm/dl Albumin/Globulin Ratio 0.6 L (0.9-2) Lipase 142 (73-393) U/L 25-OH Vitamin D Total (30-100) ng/ml Beta-Hydroxybutyric Acd (0.2-2.81) mg/dl TSH (0.300-4.500) uIu/ml Urine Color Urine Appearance (Clear) Urine pH (4.5-7.5) Ur Specific [place] (1.000-1.030) Urine Protein (Negative) Urine Glucose (UA) (Negative) Urine Ketones (Negative) Urine Blood (Negative) Urine Nitrite (Negative) Urine Bilirubin (Negative) Urine Urobilinogen (Negative) Ur Leukocyte Esterase (Negative) Urine RBC (0-4) /hpf Urine WBC (0-5) /hpf Ur Epithelial Cells (0-5) /lpf Amorphous Sediment (None Prsent) Urine Bacteria (Negative) COVID-19 Eval Order Covid19 IDNow [facility] SARS-CoV-2, RNA, NAAT NEGATIVE (NEGATIVE) 09/09/20 Range/Units 13:00 WBC 11.58 H (4.8-10.8) K/uL RBC 4.97 (4.2-5.4) M/uL Hgb 15.1 (12.0-16.0) g/dL Hct 43.9 (37-47) % MCV 88.3 (80-100) fL MCH 30.4 (25-34) pg MCHC 34.4 (32-36) g/dL RDW Std Deviation 40.1 (36.4-46.3) fL RDW Coeff of Jude 12.5 (11.5-14.5) % Plt Count 361 (130-400) K/uL MPV 9.4 (7.4-10.4) fL Immature Gran % (Auto) 0.3 % Neut % (Auto) 78.5 % Lymph % (Auto) 10.6 % [place] % (Auto) 10.1 % Eos % (Auto) 0.4 % Baso % (Auto) 0.1 % Neut # (Auto) 9.09 H (1.4-6.5) K/uL Lymph # (Auto) 1.23 (1.2-3.4) K/uL [place] # (Auto) 1.17 H (0.11-0.59) K/uL Eos # (Auto) 0.05 (0-0.5) K/uL Baso # (Auto) 0.01 (0-0.2) K/uL Immature Gran # (Auto) 0.03 H (0.00-0.02) K/uL PT (9.0-12.0) Seconds INR (0.9-1.1) APTT (21.0-31.0) Seconds PTT Ratio VBG pH (7.36-7.41) VBG pCO2 (38-50) mmHg VBG pO2 mmHg VBG HCO3 mmol/L VBG O2 Saturation % VBG Base Excess mEq/L Barometric Pressure mm/Hg Sodium (136-145) mmol/L Potassium (3.5-5.1) mmol/L Chloride (98-107) mmol/L Carbon Dioxide (21-32) mmol/L Anion Gap (3-11) BUN (7-18) mg/dl Creatinine (0.6-1.2) mg/dl Est Cr Clr Drug Dosing ml/min Est GFR ( Amer) Est GFR (Non-Af Amer) BUN/Creatinine Ratio (10-20) Glucose (70-99) mg/dl POC Glucose (70-99) mg/dl Estimat Average Glucose mg/dl Hemoglobin A1c (4.5-5.6) % Lactate (0.4-2.0) mmol/L Calcium (8.5-10.1) mg/dl Phosphorus (2.5-4.9) mg/dl Magnesium Total Bilirubin (0.2-1) mg/dl AST (15-37) U/L ALT (12-78) U/L Alkaline Phosphatase (45-117) U/L Total Creatine Kinase (26-192) U/L Troponin I (0-0.045) ng/ml Total Protein (6.4-8.2) gm/dl Albumin (3.4-5.0) gm/dl Globulin (2.5-4.0) gm/dl Albumin/Globulin Ratio (0.9-2) Lipase (73-393) U/L 25-OH Vitamin D Total (30-100) ng/ml Beta-Hydroxybutyric Acd (0.2-2.81) mg/dl TSH (0.300-4.500) uIu/ml Urine Color Urine Appearance (Clear) Urine pH (4.5-7.5) Ur Specific [place] (1.000-1.030) Urine Protein (Negative) Urine Glucose (UA) (Negative) Urine Ketones (Negative) Urine Blood (Negative) Urine Nitrite (Negative) Urine Bilirubin (Negative) Urine Urobilinogen (Negative) Ur Leukocyte Esterase (Negative) Urine RBC (0-4) /hpf Urine WBC (0-5) /hpf Ur Epithelial Cells (0-5) /lpf Amorphous Sediment (None Prsent) Urine Bacteria (Negative) COVID-19 Eval Order SARS-CoV-2, RNA, NAAT (NEGATIVE) Diagnostic Findings X-rays of right ankle in plaster and right knee are pending. MRI of right knee is pending. (1) Closed fibular fracture Encounter type: initial encounter Fibula location: lateral malleolus Fracture alignment: displaced Laterality: right Qualified Code(s): S82.61XA - Displaced fracture of lateral malleolus of right fibula, initial encounter for closed fracture (2) Fall Encounter type: initial encounter Qualified Code(s): W19.XXXA - Unspecified fall, initial encounter
[2020-09-10] MEDS ORDERED: INSULIN ASPART 100 UNITS/ML 3 ML PEN SC ONE (14:15)
--- NOTE | 2020-09-10 14:15 | Pharmacy Report ---
Pharmacy Glycemic Short Note 2 - Date of Service September 10, 2020 - Glycemic Short BSG Results (Last 24 hours): 09/09/20 09/09/20 09/09/20 15:42 17:14 17:14 Glucose POC Glucose 366 H* 300 H 287 H 09/09/20 09/09/20 09/09/20 20:07 20:08 20:28 Glucose 309 H* POC Glucose 337 H* 338 H* 09/10/20 09/10/20 09/10/20 00:16 00:44 04:07 Glucose 202 H POC Glucose 187 H 231 H 09/10/20 09/10/20 09/10/20 06:10 07:15 11:09 Glucose 220 H POC Glucose 210 H 282 H OUTPATIENT ANTIDIABETIC REGIMEN: * metformin 1000 mg PO BID * other anti-DM meds patient was prescribed in May (uncertain if she is cu rrently taking - CDE will confirm with patient): glipizide, jardiance, pioglitazone * A1c = 13% (09/09/20) ASSESSMENT: * Little is a 80 yo T2DM admitted with closed fibular fracture after mechanical fall * Severe hyperglycemia at time of admission. Uncontrolled T2DM as evidenced by A1c of 13% Patient was started on SQ basal + bolus regimen on admission. * Fasting BSG of 210 mg/dL is above goal. Unsure if this is an improvement as we do not have a fasting BSG from yesterday. Will continue to titrate Lantus. * Post prandial BSGs are improving but remain significantly above goal. Novolog parameters will be tightened. PLAN FOR INPATIENT GLYCEMIC CONTROL: * Hold outpatient oral diabetes medications * Basal insulin * Lantus 17 units SQ this morning, then per scale BID: * 10 units for BSG < 140 mg/dL, 12 units for BSG 140 - 200 mg/dL, 17 units for BSG > 200 mg/dL * Bolus insulin * NovoLog per scale ACHS or Q6hrs while NPO * Increase Goal Range: Low 120 mg/dL - High 150 mg/dL * Correction Factor: 18 mg/dL/unit * Nutritional / Prandial insulin per carb ratio of 1 unit per 6 grams CHO co nsumed * Keep overnight checks with coverage for now PLAN FOR DISCHARGE: * tbd
[2020-09-10 14:40] LABS: Partial Thromboplastin Ratio 1.9
[2020-09-10 14:44] LABS: Partial Thromboplastin Time 50.9 Seconds (21.0-31.0)
--- NOTE | 2020-09-10 15:21 | Hospitalist Progress Note ---
Date of Service September 10, 2020 Assessment & Plan (1) Diabetes: Type 2 diabetes only taking Metformin. 2-10 A1c 13 uncontrolled likely poorly compliant with diet and needs to be on more than just metformin glycemic management consult placed stop fluids (2) Afib: Patient has a history of A. fib appears to be in sinus rhythm on today's EKG she is typically not on any rate controlling medications at this time. dilt drip started, running at 10mg/hr currently rates >100 start metoprolol XL 50mg and wean off drip (3) Vitamin D deficiency: Vitamin D level low at 14 start vit d3 1000 units daily (4) Hyponatremia: Patient's hyponatremia almost completely corrects for her glucose elevation we will check a serum chemistry this afternoon with hydration to be assured that her sodium is improving once her glucose is corrected 2-10 hyponatremia resolved (5) Right fibular fracture: Patient has a right fibular fracture as well as vertebral compression fractures secondary to her falls has not been found to have any elevation of CK. She likely has some osteoporosis. If your vitamin D level be checked consult is made Dr. Nicholas for further expert evaluation of her fractures (6) Vertebral compression fracture: Right vertebral compression fractures are noted she will have scheduled Tylenol Lidoderm patch PT OT evaluation (7) DVT prophylaxis: Patient is on Lovenox Patient wishes to be a DNR upon further evaluation At that the patient's daughter Alix on admission at area code [phone] Admission and Anticipated Discharge Date Admission Date: September 09, 2020 Subjective Patient states that she fell down at home, lived alone Patient has right ankle and foot pain, which is well controlled at this time by pain meds No complaints No issues with bowel or bladder Tolerating food, no nausea or vomiting Review of Systems Constitutional: no fever, no chills, no fatigue, no weakness, no anorexia, no weight loss and no weight gain Ear, Nose, Mouth, Throat: no nasal congestion, no sore throat and no dysphagia Respiratory: no cough and no dyspnea Cardiovascular: no chest pain, no dyspnea on exertion, no orthopnea and no palpitations Gastrointestinal: no abdominal pain, no nausea, no vomiting, no hematemesis, no dysphagia, no constipation, no diarrhea/loose stools, no blood in stools and no melena Genitourinary: no dysuria, no urinary frequency, no hematuria and no flank pain Musculoskeletal: no back pain, no joint pain, no myalgia and no muscle weakness right leg and ankle pain Integumentary: no rash, no lesions, no skin ulcer, no erythema, no dry skin and no pruritus Neurologic: no falls, no localized weakness, no generalized weakness, no numbness, no paresthesia, no tremor(s) and no headache(s) Psychiatric: no depression, no suicidal ideation, no homicidal ideation and no anxiety Endocrine: no cold intolerance and no heat intolerance Hematologic / Lymphatic: no easy bleeding and no easy bruising Physical Exam Constitutional: well developed and well nourished; no acute distress Eyes: PERRL, conjunctivae normal, anicteric sclerae ENMT: Mouth: oral mucous membranes not dry Respiratory: normal respiratory effort; no respiratory distress and no labored breathing Auscultation: lungs clear to auscultation bilaterally; no crackles, no rales, no rhonchi and no wheezes Cardiovascular: Rate/Rhythm: regular rate and regular rhythm Heart Sounds: no murmur and no cardiac rub Vessels: normal peripheral pulses and radial pulses present; no JVD Extremities: no edema Gastrointestinal (Abdomen): Inspection/Auscultation: abdomen normal to inspection and normal bowel sounds; abdomen not distended Percussion/Palpation: abdomen soft; abdomen nontender, no guarding, abdomen not rigid and no hepatosplenomegaly Musculoskeletal: Head/Neck/Chest: normocephalic and head atraumatic Spine: no cervical spinal tenderness, no cervical muscular tenderness, no thoracic spinal tenderness and no lumbar spinal tenderness Extremities: + foot abnorma lity (right foot in boot/cast) Right Skin: no rashes, warm and dry Neurologic: CN's II-XI intact bilaterally and moves all extremities Motor/Sensory: no tremor and no sensory deficit Psychiatric: Orientation: alert, oriented to person, oriented to place and oriented to time Apperance: appropriately groomed; not disheveled Affect: euthymic affect; no anxious affect and no tearful affect Genitourinary: no CVA tenderness no Kraus catheter Results & Data Results & Data ([facility]) Vital Signs (Past 12 Hours) Vital Signs Temp Pulse Resp BP Pulse Ox 09/10/20 11:10 36.6 C 103 H 17 116/71 92 09/10/20 09:00 96 H 102/68 09/10/20 07:17 36.6 C 95 H 19 91/58 L 94 09/10/20 05:00 36.4 C L 101 H 20 101/93 93 Laboratory Results Abnormal lab results 09/09/20 09/09/20 09/09/20 Range/Units 14:54 15:42 17:14 PT (9.0-12.0) Seconds INR (0.9-1.1) APTT (21.0-31.0) Seconds VBG pH 7.30 L (7.36-7.41) VBG pCO2 35 L (38-50) mmHg Chloride (98-107) mmol/L Carbon Dioxide (21-32) mmol/L Anion Gap (3-11) Glucose (70-99) mg/dl POC Glucose 366 H* 300 H (70-99) mg/dl Hemoglobin A1c (4.5-5.6) % Calcium (8.5-10.1) mg/dl Magnesium (1.8-2.4) mg/dl 25-OH Vitamin D Total (30-100) ng/ml Beta-Hydroxybutyric Acd (0.2-2.81) mg/dl Urine Glucose (UA) (Negative) Urine Ketones (Negative) Urine Blood (Negative) Urine WBC (0-5) /hpf Amorphous Sediment (None Prsent) 09/09/20 09/09/20 09/09/20 Range/Units 17:14 20:07 20:08 PT (9.0-12.0) Seconds INR (0.9-1.1) APTT (21.0-31.0) Seconds VBG pH (7.36-7.41) VBG pCO2 (38-50) mmHg Chloride (98-107) mmol/L Carbon Dioxide (21-32) mmol/L Anion Gap (3-11) Glucose (70-99) mg/dl POC Glucose 287 H 337 H* 338 H* (70-99) mg/dl Hemoglobin A1c (4.5-5.6) % Calcium (8.5-10.1) mg/dl Magnesium (1.8-2.4) mg/dl 25-OH Vitamin D Total (30-100) ng/ml Beta-Hydroxybutyric Acd (0.2-2.81) mg/dl Urine Glucose (UA) (Negative) Urine Ketones (Negative) Urine Blood (Negative) Urine WBC (0-5) /hpf Amorphous Sediment (None Prsent) 09/09/20 09/09/20 09/09/20 Range/Units 20:28 20:34 23:12 PT 12.6 H (9.0-12.0) Seconds INR 1.3 H (0.9-1.1) APTT (21.0-31.0) Seconds VBG pH (7.36-7.41) VBG pCO2 (38-50) mmHg Chloride 108 H (98-107) mmol/L Carbon Dioxide 17 L (21-32) mmol/L Anion Gap 15.0 H (3-11) Glucose 309 H* (70-99) mg/dl POC Glucose (70-99) mg/dl Hemoglobin A1c 13.0 H (4.5-5.6) % Calcium 8.2 L D (8.5-10.1) mg/dl Magnesium 1.7 L (1.8-2.4) mg/dl 25-OH Vitamin D Total (30-100) ng/ml Beta-Hydroxybutyric Acd 36.47 H (0.2-2.81) mg/dl Urine Glucose (UA) (Negative) Urine Ketones (Negative) Urine Blood (Negative) Urine WBC (0-5) /hpf Amorphous Sediment (None Prsent) 09/10/20 09/10/20 09/10/20 Range/Units 00:16 00:44 00:44 PT (9.0-12.0) Seconds INR (0.9-1.1) APTT (21.0-31.0) Seconds VBG pH 7.34 L (7.36-7.41) VBG pCO2 37 L (38-50) mmHg Chloride 108 H (98-107) mmol/L Carbon Dioxide (21-32) mmol/L Anion Gap (3-11) Glucose 202 H (70-99) mg/dl POC Glucose 187 H (70-99) mg/dl Hemoglobin A1c (4.5-5.6) % Calcium 8.3 L (8.5-10.1) mg/dl Magnesium (1.8-2.4) mg/dl 25-OH Vitamin D Total (30-100) ng/ml Beta-Hydroxybutyric Acd (0.2-2.81) mg/dl Urine Glucose (UA) (Negative) Urine Ketones (Negative) Urine Blood (Negative) Urine WBC (0-5) /hpf Amorphous Sediment (None Prsent) 09/10/20 09/10/20 09/10/20 Range/Units 01:30 04:07 06:10 PT (9.0-12.0) Seconds INR (0.9-1.1) APTT (21.0-31.0) Seconds VBG pH (7.36-7.41) VBG pCO2 (38-50) mmHg Chloride 108 H (98-107) mmol/L Carbon Dioxide (21-32) mmol/L Anion Gap (3-11) Glucose 220 H (70-99) mg/dl POC Glucose 231 H (70-99) mg/dl Hemoglobin A1c (4.5-5.6) % Calcium 8.1 L (8.5-10.1) mg/dl Magnesium (1.8-2.4) mg/dl 25-OH Vitamin D Total (30-100) ng/ml Beta-Hydroxybutyric Acd (0.2-2.81) mg/dl Urine Glucose (UA) 1+ H (Negative) Urine Ketones 2+ H (Negative) Urine Blood 2+ H (Negative) Urine WBC 5-10 H (0-5) /hpf Amorphous Sediment Present A (None Prsent) 09/10/20 09/10/20 09/10/20 Range/Units 06:10 06:10 07:15 PT (9.0-12.0) Seconds INR (0.9-1.1) APTT 45.4 H* (21.0-31.0) Seconds VBG pH (7.36-7.41) VBG pCO2 (38-50) mmHg Chloride (98-107) mmol/L Carbon Dioxide (21-32) mmol/L Anion Gap (3-11) Glucose (70-99) mg/dl POC Glucose 210 H (70-99) mg/dl Hemoglobin A1c (4.5-5.6) % Calcium (8.5-10.1) mg/dl Magnesium (1.8-2.4) mg/dl 25-OH Vitamin D Total 14.6 L (30-100) ng/ml Beta-Hydroxybutyric Acd (0.2-2.81) mg/dl Urine Glucose (UA) (Negative) Urine Ketones (Negative) Urine Blood (Negative) Urine WBC (0-5) /hpf Amorphous Sediment (None Prsent) 09/10/20 09/10/20 Range/Units 11:09 13:51 PT (9.0-12.0) Seconds INR (0.9-1.1) APTT 50.9 H* (21.0-31.0) Seconds VBG pH (7.36-7.41) VBG pCO2 (38-50) mmHg Chloride (98-107) mmol/L Carbon Dioxide (21-32) mmol/L Anion Gap (3-11) Glucose (70-99) mg/dl POC Glucose 282 H (70-99) mg/dl Hemoglobin A1c (4.5-5.6) % Calcium (8.5-10.1) mg/dl Magnesium (1.8-2.4) mg/dl 25-OH Vitamin D Total (30-100) ng/ml Beta-Hydroxybutyric Acd (0.2-2.81) mg/dl Urine Glucose (UA) (Negative) Urine Ketones (Negative) Urine Blood (Negative) Urine WBC (0-5) /hpf Amorphous Sediment (None Prsent) Medications Administered Current Inpatient Medications Acetaminophen (Acetaminophen 500 Mg Tab) 1,000 mg PO TID PRN PRN Reason: Pain or Fever Stop: 10/09/20 17:08 Al Hydrox/Mg Hydrox/Simethicone (Aluminum/Magnesium Susp 30 Ml Udc) 15 ml PO Q4H PRN PRN Reason: Dyspepsia Stop: 10/09/20 17:08 Dextrose (Dextrose 50% 50 Ml Syringe) 25 - 50 ml IV UD PRN; Protocol PRN Reason: Hypoglycemia Protocol Stop: 10/09/20 14:04 Glucagon (Glucagon For Inj 1 Mg Vial) 1 mg SQ UD PRN; Protocol PRN Reason: Hypoglycemia Protocol Stop: 10/09/20 14:04 Glucose (Glucose 10 Tabs/Tube) 4 - 8 tabs PO UD PRN; Protocol PRN Reason: Hypoglycemia Protocol Stop: 10/09/20 14:04 Glucose (Glucose 40% Gel 15 Gm Tube) 15 - 30 gm PO UD PRN; Protocol PRN Reason: Hypoglycemia Protocol Stop: 10/09/20 14:04 Diltiazem HCl 125 mg/ Dextrose 125 mls @ 10 mls/hr IV .[id number] [facility]; Protocol Stop: 10/09/20 20:44 Last Titration: 09/10/20 08:47 Dose: 10 mg/hr, 10 mls/hr Documented by: Lactated Ringer's (Lr) 1,000 mls @ 150 mls/hr IV .[id number] [facility] Stop: 10/09/20 21:59 Last Admin: 09/10/20 11:03 Dose: 150 mls/hr Documented by: Heparin Sodium/Dextrose (Heparin Sodium/Dextrose) 25,000 units in 500 mls @ 22 mls/hr IV .[id number] [facility]; Protocol Stop: 10/09/20 21:59 Last Titration: 09/10/20 07:30 Dose: 1,100 units/hr, 22 mls/hr Documented by: Insulin Aspart (Insulin Aspart 100 Units/Ml 3 Ml Pen) 0 units SC ACHS [facility] Stop: 10/09/20 17:59 Last Admin: 09/10/20 11:50 Dose: 7 units Documented by: Insulin Glargine (Insulin Glargine Solostar 100 Units/Ml 3 Ml Pen) 0 units SC BID [facility]; Protocol Stop: 10/10/20 20:59 Lidocaine (Lidocaine 5% 1 Patch) 1 patch TD QAM [facility] Stop: 10/09/20 17:44 Last Admin: 09/10/20 08:00 Dose: 1 patch Documented by: Miscellaneous (Carbohydrates For Hypoglycemia ) 15 - 30 gm PO UD PRN PRN Reason: Hypoglycemia Protocol Stop: 10/09/20 14:04 Miscellaneous (Remove Lidoderm Patch) 1 ea N/A DAILY@2100 [facility] Stop: 10/09/20 22:59 Last Admin: 09/10/20 00:14 Dose: Not Given Documented by: Miscellaneous Information (Pharmacy Glycemic Mgmt Consult) 1 ea N/A UD PRN PRN Reason: Consult Stop: 10/09/20 17:23 Morphine Sulfate (Morphine Sulfate 2 Mg/Ml Carp) 2 mg IV Q4H PRN PRN Reason: Pain Stop: 09/23/20 17:08 Ondansetron HCl (Ondansetron Inj 2 Mg/Ml 2 Ml Vial) 4 mg IV Q6H PRN PRN Reason: Nausea Stop: 10/09/20 17:08 Oxycodone HCl (Oxycodone Hcl Ir 5 Mg Tab (Immediate Release)) 5 mg PO Q6H PRN PRN Reason: Moderate Pain Stop: 09/23/20 17:08 Last Admin: 09/10/20 14:10 Dose: 5 mg Documented by: PG Care Time/CCT Total # of Minutes Spent Total Time Spent with Patient: Total time spent is greater than 50% in coordination of care (as documented) at patient's floor/unit and/or counseling patient: Coding Level of Care Code 49551 Subseq Hosp Care Lvl 2 Diagnoses Diabetes E11.9 Diabetes mellitus complication status: without complication 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
[2020-09-10] MEDS: METOPROLOL SUCC 50MG EXT REL TAB PO SCH (16:14)
[2020-09-10] MEDS: CHOLECALCIFEROL 1,000 UNITS 25 MCG TAB PO SCH (16:14)
[2020-09-10] MEDS: ONDANSETRON INJ 2 MG/ML 2 ML VIAL IV PRN ×2 (16:52→23:24)
[2020-09-10] MEDS: MoRPHine SULFATE 2 MG/ML CARP IV PRN ×2 (19:14→23:24)
[2020-09-10] MEDS: INSULIN GLARGINE SOLOSTAR 100 UNITS/ML 3 ML PEN SC SCH (20:41)
--- NOTE | 2020-09-10 20:41 | XRay Report ---
XR knee RT 1 or 2V routine CLINICAL HISTORY: right knee injury COMPARISON STUDY: Right tibia/fibula 09/09/2020. FINDINGS: Overlying splint material obscures the proximal shaft of the tibia/fibula. No acute fractur e or dislocation within the right knee. Moderate a large knee effusion. Small calcific density medial to the medial femoral condyle likely represents an old MCL injury. 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 IMPRESSION: 1. Moderate to large right knee effusion. 2. No fracture or dislocation within the right knee. ACT 112: Negative or not required by law. Electronically signed by: Phu Presley M.D. 09/10/2020 8:39 PM
--- NOTE | 2020-09-10 20:42 | XRay Report ---
XR ankle RT min 3V routine CLINICAL HISTORY: Right ankle fracture; xray in splint COMPARISON STUDY: Right ankle 09/09/2020. FINDINGS: Overlying splint material obscures fine bony detail. Redilatation of the oblique fracture w ithin the distal right fibula. This demonstrates minimal displacement, unchanged. The distal tibia ap pears intact. No dislocation. IMPRESSION: Status post splinting of the distal right fibular fracture. The alignment appears unchan ged. ACT 112: Negative or not required by law. Electronically signed by: Phu Presley M.D. 09/10/2020 8:40 PM
[2020-09-10] MEDS: HEPARIN SODIUM/DEXTROSE 25,000 UNITS/500 ML BAG IV SCH (21:02)
[2020-09-11] MEDS: dilTIAZem HCL 125 MG in DEXTROSE 5% 100 ML IV SCH ×4 (02:44→23:51)
[2020-09-11] MEDS: ONDANSETRON INJ 2 MG/ML 2 ML VIAL IV PRN ×2 (05:34→23:51)
[2020-09-11] MEDS: MoRPHine SULFATE 2 MG/ML CARP IV PRN ×2 (05:34→09:54)
[2020-09-11 06:15] LABS: Hematocrit (blood only) 36.7 % (37-47); Hemoglobin 12.6 g/dL (12.0-16.0); Mean Corpuscular Hemoglobin 29.8 pg (25-34); Mean Corpuscular Hgb Conc 34.3 g/dL (32-36); Mean Corpuscular Volume 86.8 fL (80-100); Platelet Count 260 K/uL (130-400); RDW Coefficient of Variation 12.6 % (11.5-14.5); RDW Standard Deviation 40.1 fL (36.4-46.3); Red Blood Count 4.23 M/uL (4.2-5.4); White Blood Count 9.32 K/uL (4.8-10.8)
[2020-09-11 06:49] LABS: BUN Creatinine Ratio 16.7 (10-20); Calcium 7.8 mg/dl (8.5-10.1); Creatinine Clr Calc Pharmacy 66.4 ml/min; Est GFR (African American) 97.3; Magnesium 1.9 mg/dl (1.8-2.4); Phosphorus 2.7 mg/dl (2.5-4.9); Potassium 3.3 mmol/L (3.5-5.1)
[2020-09-11] MEDS ORDERED: SODIUM CHLORIDE 0.9% 1000ML 1,000 ML IV ONE (07:14)
[2020-09-11] MEDS ORDERED: POTASSIUM CHLORIDE CRTAB 20 MEQ TABCR PO STA (07:15)
--- NOTE | 2020-09-11 07:18 | Hospitalist Progress Note ---
Date of Service September 11, 2020 Assessment & Plan (1) Atrial fibrillation with RVR: 2-10 dilt drip, started metoprolol 2-11 today rate controlled at 76 wean off dilt drip cont metoprolol XL -- increase to 50 BID transition from heparin to eliquis cardio consulted (2) Diabetes: Type 2 diabetes only taking Metformin. 2-10 A1c 13 uncontrolled likely poorly compliant with diet and needs to be on more than just metformin glycemic management consult placed stop fluids 2-11 well controlled on levemir 22units and SSI (3) Hypokalemia: 2-11 K 3.3, giving 40meq KCl replace K orally (4) Vitamin D deficiency: Vitamin D level low at 14 start vit d3 1000 units daily (5) Right fibular fracture: Patient has a right fibular fracture as well as vertebral compression fractures secondary to her falls has not been found to have any elevation of CK. She likely has some osteoporosis. If your vitamin D level be checked consult is made Dr. Nicholas for further expert evaluation of her fractures 2-11 stop morphine, start norco or can use oxycodone schedule tylenol 1g TID Patient refusing to work with OT and PT due to pain Ortho recommends rest, elevation, nonweightbearing, walker ice to right ankle prn (6) Vertebral compression fracture: Right vertebral compression fractures are noted she will have scheduled Tylenol Lidoderm patch PT OT evaluation can consider spine consult if no improvement (7) Knee effusion, right: MRI without quad tendon rupture. Has lateral tibia plateau bone bruise, lateral meniscus tear, DJD, large knee effusion 2-11 ortho proposed right knee aspiration to decrease effusion, but patient declined at this time right knee JHONATHAN wrap ice right knee 20min every hour -- EZ wrap ordered by ortho again, unable to participate in PT/OT due to pain (8) Hyponatremia: Patient's hyponatremia almost completely corrects for her glucose elevation we will check a serum chemistry this afternoon with hydration to be assured that her sodium is improving once her glucose is corrected 2-10 hyponatremia resolved (9) DVT prophylaxis: Patient is on Lovenox Patient wishes to be a DNR upon further evaluation At that the patient's daughter Alix on admission at area code [phone] Admission and Anticipated Discharge Date Admission Date: September 09, 2020 Subjective Patient reporting she is doing well. Denies chest pain, palpitations. Understands that her blood sugars have been uncontrolled. Was not checking them at home. Has had some polyuria and polydipsia. Pain persists in back and right leg, controlled with morphine. Review of Systems Constitutional: no fever, no chills, no fatigue, no weakness, no anorexia, no weight loss and no weight gain Ear, Nose, Mouth, Throat: no nasal congestion, no sore throat and no dysphagia Respiratory: no cough and no dyspnea Cardiovascular: no chest pain, no dyspnea on exertion, no orthopnea and no palpitations Gastrointestinal: no abdominal pain, no nausea, no vomiting, no hematemesis, no dysphagia, no constipation, no diarrhea/loose stools, no blood in stools and no melena Genitourinary: no dysuria, no urinary frequency, no hematuria and no flank pain Musculoskeletal: + back pain; no joint pain, no myalgia and no muscle weakness leg pain Integumentary: no rash, no lesions, no skin ulcer, no erythema, no dry skin and no pruritus Neurologic: no falls, no localized weakness, no generalized weakness, no numbness, no paresthesia, no tremor(s) and no headache(s) Psychiatric: no depression, no suicidal ideation, no homicidal ideation and no anxiety Endocrine: no cold intolerance and no heat intolerance Hematologic / Lymphatic: no easy bleeding and no easy bruising Physical Exam Constitutional: well developed and well nourished; no acute distress Eyes: PERRL, conjunctivae normal, anicteric sclerae ENMT: Mouth: oral mucous membranes not dry Respiratory: normal respiratory effort; no respiratory distress and no labored breathing Auscultation: lungs clear to auscultation bilaterally; no crackles, no rales, no rhonchi and no wheezes Cardiovascular: Rate/Rhythm: regular rate and regular rhythm Heart Sounds: no murmur and no cardiac rub Vessels: normal peripheral pulses and radial pulses present; no JVD Extremities: no edema Gastrointestinal (Abdomen): Inspection/Auscultation: abdomen normal to inspection and normal bowel sounds; abdomen not distended Percussion/Palpation: abdomen soft; abdomen nontender, no guarding, abdomen not rigid and no hepatosplenomegaly Musculoskeletal: Head/Neck/Chest: normocephalic and head atraumatic Spine: no cervical spinal tenderness, no cervical muscular tenderness, no thoracic spinal tenderness and no lumbar spinal tenderness Extremities: + foot abnormality (right foot in boot/cast) Skin: no rashes, warm and dry Neurologic: CN's II-XI intact bilaterally and moves all extremities Motor/Sensory: no tremor and no sensory deficit Psychiatric: Orientation: alert, oriented to person, oriented to place and oriented to time Apperance: appropriately groomed; not disheveled Affect: euthymic affect; no anxious affect and no tearful affect Genitourinary: no CVA tenderness Results & Data Results & Data ([facility]) Vital Signs (Past 12 Hours) Vital Signs Temp Pulse Pulse Resp BP Pulse Ox 09/11/20 02:52 37.0 C 123 H 16 109/73 93 09/10/20 23:23 36.6 C 128 H 16 106/68 93 09/10/20 22:41 115 H Laboratory Results Abnormal lab results 09/10/20 09/10/20 09/10/20 Range/Units 06:10 06:10 07:15 Hct (37-47) % APTT (21.0-31.0) Seconds Potassium (3.5-5.1) mmol/L Chloride 108 H (98-107) mmol/L Glucose 220 H (70-99) mg/dl POC Glucose 210 H (70-99) mg/dl Calcium 8.1 L (8.5-10.1) mg/dl 25-OH Vitamin D Total 14.6 L (30-100) ng/ml 09/10/20 09/10/20 09/10/20 Range/Units 11:09 13:51 16:01 Hct (37-47) % APTT 50.9 H* (21.0-31.0) Seconds Potassium (3.5-5.1) mmol/L Chloride (98-107) mmol/L Glucose (70-99) mg/dl POC Glucose 282 H 266 H (70-99) mg/dl Calcium (8.5-10.1) mg/dl 25-OH Vitamin D Total (30-100) ng/ml 09/10/20 09/11/20 09/11/20 Range/Units 20:24 05:59 05:59 Hct 36.7 L (37-47) % APTT (21.0-31.0) Seconds Potassium 3.3 L (3.5-5.1) mmol/L Chloride (98-107) mmol/L Glucose 238 H (70-99) mg/dl POC Glucose 229 H (70-99) mg/dl Calcium 7.8 L (8.5-10.1) mg/dl 25-OH Vitamin D Total (30-100) ng/ml Medications Administered Current Inpatient Medications Acetaminophen (Acetaminophen 500 Mg Tab) 1,000 mg PO TID PRN PRN Reason: Pain or Fever Stop: 10/09/20 17:08 Al Hydrox/Mg Hydrox/Simethicone (Aluminum/Magnesium Susp 30 Ml Udc) 15 ml PO Q4H PRN PRN Reason: Dyspepsia Stop: 10/09/20 17:08 Dextrose (Dextrose 50% 50 Ml Syringe) 25 - 50 ml IV UD PRN; Protocol PRN Reason: Hypoglycemia Protocol Stop: 10/09/20 14:04 Glucagon (Glucagon For Inj 1 Mg Vial) 1 mg SQ UD PRN; Protocol PRN Reason: Hypoglycemia Protocol Stop: 10/09/20 14:04 Glucose (Glucose 10 Tabs/Tube) 4 - 8 tabs PO UD PRN; Protocol PRN Reason: Hypoglycemia Protocol Stop: 10/09/20 14:04 Glucose (Glucose 40% Gel 15 Gm Tube) 15 - 30 gm PO UD PRN; Protocol PRN Reason: Hypoglycemia Protocol Stop: 10/09/20 14:04 Diltiazem HCl 125 mg/ Dextrose 125 mls @ 15 mls/hr IV .Q8H20M TITI; Protocol Stop: 10/09/20 20:44 Last Titration: 09/11/20 06:57 Dose: 15 mg/hr, 15 mls/hr Documented by: Heparin Sodium/Dextrose (Heparin Sodium/Dextrose) 25,000 units in 500 mls @ 22 mls/hr IV .[id number] [facility]; Protocol Stop: 10/09/20 21:59 Last Titration: 09/11/20 06:58 Dose: 1,100 units/hr, 22 mls/hr Documented by: Sodium Chloride (Nss 1000ml) 1,000 mls @ 999 mls/hr IV .Q1H1M ONE Stop: 09/11/20 08:14 Insulin Aspart (Insulin Aspart 100 Units/Ml 3 Ml Pen) 0 units SC ACHS [facility] Stop: 10/09/20 17:59 Last Admin: 09/10/20 20:46 Dose: 5 units Documented by: Insulin Glargine (Insulin Glargine Solostar 100 Units/Ml 3 Ml Pen) 0 units SC BID [facility]; Protocol Stop: 10/10/20 20:59 Last Admin: 09/10/20 20:41 Dose: 17 units Documented by: Lidocaine (Lidocaine 5% 1 Patch) 1 patch TD [facility] Stop: 10/09/20 17:44 Last Admin: 09/10/20 08:00 Dose: 1 patch Documented by: Metoprolol Succinate (Metoprolol Succ 50mg Ext Rel Tab) 50 mg PO [facility] Stop: 10/10/20 15:44 Last Admin: 09/10/20 16:14 Dose: Not Given Documented by: Miscellaneous (Carbohydrates For Hypoglycemia ) 15 - 30 gm PO UD PRN PRN Reason: Hypoglycemia Protocol Stop: 10/09/20 14:04 Miscellaneous (Remove Lidoderm Patch) 1 ea N/A DAILY@2100 [facility] Stop: 10/09/20 22:59 Last Admin: 09/10/20 21:08 Dose: 1 ea Documented by: Miscellaneous Information (Pharmacy Glycemic Mgmt Consult) 1 ea N/A UD PRN PRN Reason: Consult Stop: 10/09/20 17:23 Morphine Sulfate (Morphine Sulfate 2 Mg/Ml Carp) 2 mg IV Q4H PRN PRN Reason: Pain Stop: 09/23/20 17:08 Last Admin: 09/11/20 05:34 Dose: 2 mg Documented by: Ondansetron HCl (Ondansetron Inj 2 Mg/Ml 2 Ml Vial) 4 mg IV Q6H PRN PRN Reason: Nausea Stop: 10/09/20 17:08 Last Admin: 09/11/20 05:34 Dose: 4 mg Documented by: Oxycodone HCl (Oxycodone Hcl Ir 5 Mg Tab (Immediate Release)) 5 mg PO Q6H PRN PRN Reason: Moderate Pain Stop: 09/23/20 17:08 Last Admin: 09/10/20 14:10 Dose: 5 mg Documented by: Potassium Chloride (Potassium Chloride Crtab 20 Meq Tabcr) 40 meq PO NOW STA Stop: 09/11/20 07:16 Vitamin D (Cholecalciferol 1,000 Units 25 Mcg Tab) 1,000 units PO [facility] Stop: 10/10/20 15:29 Last Admin: 09/10/20 16:14 Dose: 1,000 units Documented by: PG Care Time/CCT Total # of Minutes Spent Total Time Spent with Patient: Total time spent is greater than 50% in coordination of care (as documented) at patient's floor/unit and/or counseling patient: Coding Level of Care Code 04183 Subseq Hosp Care Lvl 2 Diagnoses Atrial fibrillation with RVR I48.91 Diabetes E11.9 Diabetes mellitus complication status: without complication Diabetes mellitus senior living insulin use: without senior living use Diabetes mellitus type: type 2 Hypokalemia E87.6 Vitamin D deficiency E55.9 Right fibular fracture S82.401A Encounter type: initial encounter Fracture type: closed Fracture morphology: unspecified fracture morphology Vertebral compression fracture M48.50XA Knee effusion, right M25.461 Hyponatremia E87.1 DVT prophylaxis Z29.9 (1) Diabetes Diabetes mellitus complication status: without complication Diabetes mellitus senior living insulin use: without senior living use Diabetes mellitus type: type 2 Qualified Code(s): E11.9 - Type 2 diabetes mellitus without complications (2) Right fibular fracture Encounter type: initial encounter Fracture type: closed Fracture morphology: unspecified fracture morphology
[2020-09-11] MEDS: LIDOCAINE 5% 1 PATCH TD SCH (07:33)
[2020-09-11] MEDS: CHOLECALCIFEROL 1,000 UNITS 25 MCG TAB PO SCH (07:33)
[2020-09-11] MEDS: METOPROLOL SUCC 50MG EXT REL TAB PO SCH ×2 (07:33→20:50)
[2020-09-11 07:48] LABS: Partial Thromboplastin Ratio 2.2
[2020-09-11] MEDS: oxyCODONE HCL IR 5 MG TAB (IMMEDIATE RELEASE) PO PRN ×2 (07:48→20:38)
[2020-09-11 07:52] LABS: Partial Thromboplastin Time 57.8 Seconds (21.0-31.0)
[2020-09-11] MEDS: INSULIN ASPART 100 UNITS/ML 3 ML PEN SC SCH ×4 (08:05→20:49)
--- NOTE | 2020-09-11 08:09 | Magnetic Resonance Report ---
MRI OF THE RIGHT KNEE WITHOUT CONTRAST CLINICAL HISTORY: right knee injury; rule out quad tendon injury COMPARISON STUDY: Right femur and tibia and fibula radiographs September 09, 2020. TECHNIQUE: Utilizing a 1.5 Irais magnet and dedicated coil, multiplanar, multiecho imaging of the rig ht knee was performed without intravenous or intraarticular contrast. FINDINGS: Alignment of the right knee is anatomic. Extensor mechanism is intact. Patellar tendon is i ntact. Insertion of the quadriceps is intact. Note is made of a large joint effusion. There is layeri ng T2 hypointense material. This suggests a hemarthrosis. No lipohemarthrosis is present. The cruciat e and collateral ligaments are intact. The medial meniscus is intact. Note is made of an oblique tear of the body of the lateral meniscus. There is also abnormal signal within the posterior horn and ant erior horn of the lateral meniscus. There is moderate chondrosis within the patellofemoral compartmen t. There is mild chondrosis within the medial compartment. Soft tissue edema adjacent to the right kn ee is present. No displaced fracture is noted. There is minimal linear signal within the posterior as pect of the lateral tibial plateau shown best on axial T2-weighted sequence image 22/34. This is equi vocal for nondisplaced fracture. No additional sites of marrow edema or present. IMPRESSION: 1. Large right knee joint effusion. Layering T2 hypointense material consistent with a hemarthrosis. No definite fracture. Equivocal nondisplaced fracture of the posterior aspect the lateral tibial plat eau without depression. Soft tissue edema adjacent to the right knee. 2. Intact quadriceps insertion. 3. Oblique tear of the body of the lateral meniscus. 4. Moderate chondrosis within the patellofemoral compartment. Mild chondrosis within the medial moraima rtment. 5. Intact cruciate and collateral ligaments. ACT 112: Negative or not required by law. Electronically signed by: Fahad Rahman M.D. 09/11/2020 8:08 AM
[2020-09-11] MEDS ORDERED: INSULIN GLARGINE SOLOSTAR 100 UNITS/ML 3 ML PEN SC SCH (09:00)
--- NOTE | 2020-09-11 10:02 | Orthopedic Progress Note ---
Date of Service September 11, 2020 Assessment & Plan (1) Closed fibular fracture: Xrays of right ankle reveal alignment maintained. Continue to treat conservatively with immobilization. Continue PT/OT. Continue nonweightbearing right lower extremity. Use walker to assist with ambulation. She may also need assistance of another person. Rest, ice, elevation as needed for pain and swelling. Encouraged elevation of her right lower extremity above her heart to help with swelling. Ice to right ankle as needed. Continue to follow in-house. IDr. Benavidez, saw and examined the patient and discussed the management with my PA. I reviewed my PAs note and agree with the documented findings and the plan of care I developed. (2) Vertebral compression fracture: RICE Pain control per primary service. Consider consult to spine. Encourage incentive spirometry. IDr. Benavidez, saw and examined the patient and discussed the management with my PA. I reviewed my PAs note and agree with the documented findings and the plan of care I developed. (3) Fall: (4) Knee effusion, right: MRI and xrays of right knee reviewed by Dr Benavidez. No quad tendon rupture. Has lateral tibia plateau bone bruise. Lateral meniscus tear, DJD, and large knee effusion. No surgical intervention required at this time. Discussed with the patient a right knee aspiration to decrease effusion with goal of decreased pain and increased mobility. Discussed procedure, risks, and outcomes. Patient hesitant to have done at this time due to possible pain with the aspiration. Says she cannot tolerate more pain even though she knows its temporary. I asked she think about this and we will continue to follow and if changes her mind can proceed. Right knee JHONATHAN wrap to right knee for effusion. Can be removed to change l idoderm patch and re-applied. Ice right knee as much as 20min every hour if patient tolerates. EZ wrap ordered. Continue pain medication per primary service. Continue PT/OT. Encourage right knee motion as tolerated. Will continue to follow in-house. Also Left leg AV impulse boots ordered for DVT prophylaxis. IDr. Benavidez, saw and examined the patient and discussed the management with my PA. I reviewed my PAs note and agree with the documented findings and the plan of care I developed. Present on Admission?: Yes Admission and Anticipated Discharge Date Admission Date: September 09, 2020 Subjective Patient in bed. In pain to right knee > right ankle. Not wanting to move right leg, specifically right knee in fear of pain. OT at bedside. Denies chest pain, SOB, left leg pain, or bilateral leg numbness or tingling. Per nurse giving PO oxycodone. Has IV pain meds ordered but BP running low. No ice pack in room for knee or ankle. Physical Exam Physical Exam: Patient in bed. In mild distress because of pain. Fearful of any movement to right leg, specifically right knee. Right knee exam reveals 3+ effusion. Not red or warm. Skin intact. Right knee in slight flexed position at rest. Lidoderm patch to posterior knee. No defect to quad tendon. Would not tolerate any PROM or AROM to right knee. Unable to do SLR. Painless log rolling right hip. Right ankle in plaster splint. Sensation intact to toes. Brisk capillary refill. Left leg calve soft. 1+ PE. NV intact. Results & Data ([facility]) Vital Signs (Past 12 Hours) Vital Signs Temp Pulse Pulse Resp BP Pulse Ox 09/11/20 07:20 36.6 C 102 H 17 115/73 94 09/11/20 02:52 37.0 C 123 H 16 109/73 93 09/10/20 23:23 36.6 C 128 H 16 106/68 93 09/10/20 22:41 115 H Laboratory Results 09/11/20 09/11/20 09/11/20 Range/Units 07:20 07:18 05:59 WBC (4.8-10.8) K/uL RBC (4.2-5.4) M/uL Hgb (12.0-16.0) g/dL Hct (37-47) % MCV (80-100) fL MCH (25-34) pg MCHC (32-36) g/dL RDW Std Deviation (36.4-46.3) fL RDW Coeff of Jude (11.5-14.5) % Plt Count (130-400) K/uL MPV (7.4-10.4) fL APTT 57.8 H* (21.0-31.0) Seconds PTT Ratio 2.2 Sodium 136 (136-145) mmol/L Potassium 3.3 L (3.5-5.1) mmol/L Chloride 104 (98-107) mmol/L Carbon Dioxide 23 (21-32) mmol/L Anion Gap 9.0 (3-11) BUN 10 (7-18) mg/dl Creatinine 0.62 (0.6-1.2) mg/dl Est Cr Clr Drug Dosing 66.4 ml/min Est GFR ( Amer) 97.3 Est GFR (Non-Af Amer) 84.0 BUN/Creatinine Ratio 16.7 (10-20) Glucose 238 H (70-99) mg/dl POC Glucose 237 H (70-99) mg/dl Calcium 7.8 L (8.5-10.1) mg/dl Phosphorus 2.7 (2.5-4.9) mg/dl Magnesium 1.9 (1.8-2.4) mg/dl 09/11/20 09/10/20 09/10/20 Range/Units 05:59 20:24 16:01 WBC 9.32 (4.8-10.8) K/uL RBC 4.23 (4.2-5.4) M/uL Hgb 12.6 (12.0-16.0) g/dL Hct 36.7 L (37-47) % MCV 86.8 (80-100) fL MCH 29.8 (25-34) pg MCHC 34.3 (32-36) g/dL RDW Std Deviation 40.1 (36.4-46.3) fL RDW Coeff of Jude 12.6 (11.5-14.5) % Plt Count 260 (130-400) K/uL MPV 9.0 (7.4-10.4) fL APTT (21.0-31.0) Seconds PTT Ratio Sodium (136-145) mmol/L Potassium (3.5-5.1) mmol/L Chloride (98-107) mmol/L Carbon Dioxide (21-32) mmol/L Anion Gap (3-11) BUN (7-18) mg/dl Creatinine (0.6-1.2) mg/dl Est Cr Clr Drug Dosing ml/min Est GFR ( Amer) Est GFR (Non-Af Amer) BUN/Creatinine Ratio (10-20) Glucose (70-99) mg/dl POC Glucose 229 H 266 H (70-99) mg/dl Calcium (8.5-10.1) mg/dl Phosphorus (2.5-4.9) mg/dl Magnesium (1.8-2.4) mg/dl 09/10/20 09/10/20 Range/Units 13:51 11:09 WBC (4.8-10.8) K/uL RBC (4.2-5.4) M/uL Hgb (12.0-16.0) g/dL Hct (37-47) % MCV (80-100) fL MCH (25-34) pg MCHC (32-36) g/dL RDW Std Deviation (36.4-46.3) fL RDW Coeff of Jude (11.5-14.5) % Plt Count (130-400) K/uL MPV (7.4-10.4) fL APTT 50.9 H* (21.0-31.0) Seconds PTT Ratio 1.9 Sodium (136-145) mmol/L Potassium (3.5-5.1) mmol/L Chloride (98-107) mmol/L Carbon Dioxide (21-32) mmol/L Anion Gap (3-11) BUN (7-18) mg/dl Creatinine (0.6-1.2) mg/dl Est Cr Clr Drug Dosing ml/min Est GFR ( Amer) Est GFR (Non-Af Amer) BUN/Creatinine Ratio (10-20) Glucose (70-99) mg/dl POC Glucose 282 H (70-99) mg/dl Calcium (8.5-10.1) mg/dl Phosphorus (2.5-4.9) mg/dl Magnesium (1.8-2.4) mg/dl Diagnostic Findings MRI OF THE RIGHT KNEE WITHOUT CONTRAST CLINICAL HISTORY: right knee injury; rule out quad tendon injury COMPARISON STUDY: Right femur and tibia and fibula radiographs September 09, 2020. TECHNIQUE: Utilizing a 1.5 Irais magnet and dedicated coil, multiplanar, multiecho imaging of the right knee was performed without intravenous or intraarticular contrast. FINDINGS: Alignment of the right knee is anatomic. Extensor mechanism is intact. Patellar tendon is intact. Insertion of the quadriceps is intact. Note is made of a large joint effusion. There is layering T2 hypointense material. This suggests a hemarthrosis. No lipohemarthrosis is present. The cruciate and collateral ligaments are intact. The medial meniscus is intact. Note is made of an oblique tear of the body of the lateral meniscus. There is also abnormal signal within the posterior horn and anterior horn of the lateral meniscus. There is moderate chondrosis within the patellofemoral compartment. There is mild chondrosis within the medial compartment. Soft tissue edema adjacent to the right knee is present. No displaced fracture is noted. There is minimal linear signal within the posterior aspect of the lateral tibial plateau shown best on axial T2-weighted sequence image 22/34. This is equivocal for nondisplaced fracture. No additional sites of marrow edema or present. IMPRESSION: 1. Large right knee joint effusion. Layering T2 hypointense material consistent with a hemarthrosis. No definite fracture. Equivocal nondisplaced fracture of the posterior aspect the lateral tibial plateau without depression. Soft tissue edema adjacent to the right knee. 2. Intact quadriceps insertion. 3. Oblique tear of the body of the lateral meniscus. 4. Moderate chondrosis within the patellofemoral compartment. Mild chondrosis within the medial compartment. 5. Intact cruciate and collateral ligaments. XR knee RT 1 or 2V routine CLINICAL HISTORY: right knee injury COMPARISON STUDY: Right tibia/fibula 09/09/2020. FINDINGS: Overlying splint material obscures the proximal shaft of the tibia/fibula. No acute fracture or dislocation within the right knee. Moderate a large knee effusion. Small calcific density medial to the medial femoral condyle likely represents an old MCL injury. Mild osteoarthritis within the medial compartment of the knee. IMPRESSION: 1. Moderate to large right knee effusion. 2. No fracture or dislocation within the right knee XR ankle RT min 3V routine CLINICAL HISTORY: Right ankle fracture; xray in splint COMPARISON STUDY: Right ankle 09/09/2020. FINDINGS: Overlying splint material obscures fine bony detail. Redilatation of the oblique fracture within the distal right fibula. This demonstrates minimal displacement, unchanged. The distal tibia appears intact. No dislocation. IMPRESSION: Status post splinting of the distal right fibular fracture. The alignment appears unchanged. (1) Closed fibular fracture Encounter type: initial encounter Fibula location: lateral malleolus Fracture alignment: displaced Laterality: right Qualified Code(s): S82.61XA - Displaced fracture of lateral malleolus of right fibula, initial encounter for closed fracture (2) Fall Encounter type: initial encounter Qualified Code(s): W19.XXXA - Unspecified fall, initial encounter
--- NOTE | 2020-09-11 14:59 | Cardiology Consultation ---
Date of Consultation September 11, 2020 Assessment & Plan (1) Atrial fibrillation with RVR: (2) Hypokalemia: (3) Diabetes: (4) Closed fibular fracture: (5) Vertebral compression fracture: 80-year-old woman admitted after fall with fractures who subsequently developed atrial fibrillation with rapid ventricular response. Agree with current plan of transitioning from intravenous diltiazem to oral metoprolol. Currently, her heart rate is reasonable, as long as her ventricular rate is less than 120 bpm would continue to reduce diltiazem until weaned off. Given borderline BP, metoprolol preferable for rate control, likely she could tolerate further increased from 50 mg twice daily to 75 mg twice daily (or higher) as her diltiazem was weaned. At this point, she is perfusing well and therefore hypotension is not enough of an issue to consider digoxin or amiodarone. Agree with aggressively managing electrolyte depletion, ideally would aim for potassium of 4.0 or greater and magnesium of 2.0 or greater. Consider routine oral magnesium and potassium supplements to improve possibility of return to sinus rhythm and reduce the risk of recurrence, since she has normal renal function she should tolerate these with low risk. With [id number] of 4 long-term anticoagulation is warranted. She is already heparinized, therefore at some point would shift to apixaban 5 mg twice daily (since weight is greater than 60 kg and creatinine is less than 2.5 she merits full dose apixaban). If she does have frequent falls as an outpatient, could reevaluate quality of life issues with patient/family to determine relative risks/benefits of long-term anticoagulation. Would not withhold anticoagulation based on a single mechanical fall. Thank you for this consultation, we will continue to follow. History of Present Illness Reason for Consultation: Atrial fibrillation with rapid ventricular response. Requesting Physician: Yoon Piper MD Attending Physician: Yoon Piper MD History of Present Illness 80-year-old woman with history of diabetes but no known cardiac history who was admitted on 09/09/2020 with a right fibular fracture after a mechanical fall that had occurred several days earlier, during his hospitalization she developed new onset atrial fibrillation with rapid ventricular response. She was initiated on diltiazem infusion and started on oral beta-kathy, however her ventricular response remained modestly elevated. Patient's only c omplaint is right leg discomfort with any movement, she is currently immobilized but notes no chest discomfort, subjective palpitations, or dyspnea at rest. Allergies Allergy/AdvReac Type Severity Reaction Status Date / Time codeine AdvReac Intermediate VOMITING Verified 09/09/20 14:40 Home Medications Medication Instructions Recorded Confirmed Type metformin 1,000 mg PO BIDM 09/09/20 09/09/20 History mirtazapine 30 mg PO HS 09/09/20 09/09/20 History Patient History Medical History Depression Surgical History H/O bilateral oophorectomy H/O: hysterectomy Family History Heart disease Social History Smoking Status: Never smoker Hx Alcohol Use: Yes Hx Substance Use: No Preferred Language: Ethiopian Communication Ability: Effective Beliefs That Will Affect Care: None Current Living Situation: Alone Other Information That Helps Us Care for You: No Feels Safe at Home: Yes Safety Concerns: Feels Safe At This Time Assistive Devices: Oxygen - Continuous Physical Exam Physical Exam: Elderly white female appears mildly uncomfortable but not acutely distressed. Systolic blood pressure 91-115 mmHg over the past 24 hours. Telemetry showed elevated ventricular rate overnight in the 120 bpm range, at the time of our evaluation rate was 90 bpm. Skin: no ecchymoses or generalized lesions. HEENT: unremarkable. Neck: Jugular venous pulse just above the clavicle at 45 degrees, no carotid bruits. Lungs: clear and equal breath sounds. Cardiac: Irregular, tachycardic rhythm with 2/6 holosystolic murmur at the apex, no diastolic murmur or gallop. Abdomen: Mildly distended with diffuse tenderness but no guarding or rigidity. Extremities: Immobilized right lower extremity, good capillary refill, warm. Neurologic: normal affect, nonfocal. Results & Data ([facility]) Vital Signs (Past 12 Hours) Vital Signs Temp Pulse Resp BP BP Pulse Ox 09/11/20 11:28 98.4 F 76 17 97/63 L 92 09/11/20 07:20 97.9 F 102 H 17 115/73 94 Laboratory Results Normal CBC. INR 1.3. Potassium 3.3 with magnesium 1.9 (earlier magnesium was 1.7). BUN 10, creatinine 0.62. Chest x-ray on admission was unremarkable. 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 Compared with ECG from 2012, minimal criteria for anterior infarct are new, otherwise no significant change. A second ECG later on the day of admission showed atrial fibrillation with ventricular rate of 158 bpm, no significant ST deviation. Borderline criteria for inferior infarct, R wave progression across the precordium had improved. PG Care Time/CCT Total # of Minutes Spent Total Time Spent with Patient: Total time spent is greater than 50% in coordination of care (as documented) at patient's floor/unit and/or counseling patient: Coding Level of Care Code 38079 Initial Inpt Care Lvl 3 Diagnoses Atrial fibrillation with RVR I48.91 Hypokalemia E87.6 Diabetes E11.9 Diabetes mellitus type: type 2 Diabetes mellitus exterminator insulin use: without exterminator use Diabetes mellitus complication status: without complication Closed fibular fracture S82.61XA Encounter type: initial encounter Fibula location: lateral malleolus Fracture alignment: displaced Laterality: right Vertebral compression fracture M48.50XA (1) Diabetes Diabetes mellitus type: type 2 Diabetes mellitus mcfp insulin use: without exterminator use Diabetes mellitus complication status: without complication Qualified Code(s): E11.9 - Type 2 diabetes mellitus without complications (2) Closed fibular fracture Encounter type: initial encounter Fibula location: lateral malleolus Fracture alignment: displaced Laterality: right Qualified Code(s): S82.61XA - Displaced fracture of lateral malleolus of right fibula, initial encounter for closed fracture
--- NOTE | 2020-09-11 15:09 | Communication Note ---
Date of Service: September 11, 2020 This patient was seen in concert with Dr. Brady and we discussed and agreed upon the history, physical, assessment, and plan. See attending's note for details. Resident Activity Tracking Resident Involvement: Resident Care Provided Care Provided: [facility] Medicine
[2020-09-11] MEDS: HYDROCODONE/ACETAMOPHEN 5/325MG TAB PO PRN (16:56)
[2020-09-11] MEDS: APIXABAN 5 MG TABLET PO SCH (20:35)
[2020-09-11] MEDS: ACETAMINOPHEN 500 MG TAB PO SCH (20:36)
[2020-09-11] MEDS: INSULIN GLARGINE SOLOSTAR 100 UNITS/ML 3 ML PEN SC SCH (21:15)
[2020-09-12 04:56] LABS: Hematocrit (blood only) 36.2 % (37-47); Hemoglobin 12.1 g/dL (12.0-16.0); Mean Corpuscular Hemoglobin 29.4 pg (25-34); Mean Corpuscular Hgb Conc 33.4 g/dL (32-36); Mean Corpuscular Volume 87.9 fL (80-100); Mean Platelet Volume 9.4 fL (7.4-10.4); Platelet Count 254 K/uL (130-400); RDW Coefficient of Variation 12.7 % (11.5-14.5); RDW Standard Deviation 41.2 fL (36.4-46.3); Red Blood Count 4.12 M/uL (4.2-5.4); White Blood Count 6.38 K/uL (4.8-10.8)
[2020-09-12 05:05] LABS: Partial Thromboplastin Time 27.3 Seconds (21.0-31.0)
[2020-09-12 05:13] LABS: BUN Creatinine Ratio 20.1 (10-20); Calcium 8.1 mg/dl (8.5-10.1); Creatinine Clr Calc Pharmacy 62.4 ml/min; Est GFR (African American) 95.3; Est GFR (Non-African American) 82.3; Potassium 3.6 mmol/L (3.5-5.1)
[2020-09-12 05:15] LABS: Phosphorus 3.4 mg/dl (2.5-4.9)
[2020-09-12] MEDS: INSULIN ASPART 100 UNITS/ML 3 ML PEN SC SCH ×4 (07:49→21:13)
--- NOTE | 2020-09-12 08:25 | Hospitalist Progress Note ---
Date of Service September 12, 2020 Assessment & Plan (1) Atrial fibrillation with RVR: 2-10 dilt drip, started metoprolol 2-11 today rate controlled at 76 wean off dilt drip cont metoprolol XL -- increase to 50 BID transition from heparin to eliquis cardio consulted 2-12 rate controlled better today stop dilt drip start toprol XL 100mg bid (2) Diabetes: Type 2 diabetes only taking Metformin. 2-10 A1c 13 uncontrolled likely poorly compliant with diet and needs to be on more than just metformin glycemic management consult placed stop fluids 2-11 well controlled on levemir 22units and SSI (3) Hypokalemia: 2-11 K 3.3, giving 40meq KCl replace K orally (4) Vitamin D deficiency: Vitamin D level low at 14 start vit d3 1000 units daily (5) Right fibular fracture: Patient has a right fibular fracture as well as vertebral compression fractures secondary to her falls has not been found to have any elevation of CK. She likely has some osteoporosis. If your vitamin D level be checked consult is made Dr. Nicholas for further expert evaluation of her fractures 2-11 stop morphine, start norco or can use oxycodone schedule tylenol 1g TID Patient refusing to work with OT and PT due to pain Ortho recommends rest, elevation, nonweightbearing, walker ice to right ankle prn (6) Vertebral compression fracture: Right vertebral compression fractures are noted she will have scheduled Tylenol Lidoderm patch PT OT evaluation can consider spine consult if no improvement (7) Knee effusion, right: MRI without quad tendon rupture. Has lateral tibia plateau bone bruise, lateral meniscus tear, DJD, large knee effusion 2-11 ortho proposed right knee aspiration to decrease effusion, but patient declined at this time right knee JHONATHAN wrap ice right knee 20min every hour -- EZ wrap ordered by ortho again, unable to participate in PT/OT due to pain 2-12 aspiration of effusion per ortho (8) Hyponatremia: Patient's hyponatremia almost completely corrects for her glucose el evation we will check a serum chemistry this afternoon with hydration to be assured that her sodium is improving once her glucose is corrected 2-10 hyponatremia resolved (9) DVT prophylaxis: Patient is on eliquis Patient wishes to be a DNR upon further evaluation At that the patient's daughter Alix on admission at area code [phone] Admission and Anticipated Discharge Date Admission Date: September 09, 2020 Subjective Agreed to right knee aspiration today to alleviate pain. Not working with PT/OT due to severe right ankle and knee pain. Tylenol seems to help, though pain is still uncontrolled. Tolerating diet, no nausea or vomiting. No constipation or diarrhea. No palpitations or chest pain. Review of Systems Constitutional: no fever, no chills, no fatigue, no weakness, no anorexia, no weight loss and no weight gain Ear, Nose, Mouth, Throat: no nasal congestion, no sore throat and no dysphagia Respiratory: no cough and no dyspnea Cardiovascular: no chest pain, no dyspnea on exertion, no orthopnea and no palpitations Gastrointestinal: no abdominal pain, no nausea, no vomiting, no hematemesis, no dysphagia, no constipation, no diarrhea/loose stools, no blood in stools and no melena Genitourinary: no dysuria, no urinary frequency, no hematuria and no flank pain Musculoskeletal: + back pain; no joint pain, no myalgia and no muscle weakness leg pain Integumentary: no rash, no lesions, no skin ulcer, no erythema, no dry skin and no pruritus Neurologic: no falls, no localized weakness, no generalized weakness, no numbness, no paresthesia, no tremor(s) and no headache(s) Psychiatric: no depression, no suicidal ideation, no homicidal ideation and no anxiety Endocrine: no cold intolerance and no heat intolerance Hematologic / Lymphatic: no easy bleeding and no easy bruising Physical Exam Constitutional: well developed and well nourished; no acute distress Eyes: PERRL, conjunctivae normal, anicteric sclerae ENMT: Mouth: oral mucous membranes not dry Respiratory: normal respiratory effort (on 2 L NC); no respiratory distress and no labored breathing Auscultation: lungs clear to auscultation bilaterally; no crackles, no rales, no rhonchi and no wheezes Cardiovascular: Rate/Rhythm: regular rate and regular rhythm Heart Sounds: no murmur and no cardiac rub Vessels: normal peripheral pulses and radial pulses present; no JVD Extremities: no edema Gastrointestinal (Abdomen): Inspection/Auscultation: abdomen normal to i nspection and normal bowel sounds; abdomen not distended Percussion/Palpation: abdomen soft; abdomen nontender, no guarding, abdomen not rigid and no hepatosplenomegaly Musculoskeletal: Head/Neck/Chest: normocephalic and head atraumatic Spine: no cervical spinal tenderness, no cervical muscular tenderness, no thoracic spinal tenderness and no lumbar spinal tenderness Extremities: + foot abnormality (right foot in boot/cast) Skin: no rashes, warm and dry Neurologic: CN's II-XI intact bilaterally and moves all extremities Motor/Sensory: no tremor and no sensory deficit Psychiatric: Orientation: alert, oriented to person, oriented to place and isabel ented to time Apperance: appropriately groomed; not disheveled Affect: euthymic affect; no anxious affect and no tearful affect Genitourinary: no CVA tenderness Results & Data Results & Data ([facility]) Vital Signs (Past 12 Hours) Vital Signs Temp Pulse Pulse Resp BP BP Pulse Ox 09/12/20 08:15 36.8 C 75 98 H 136/74 09/12/20 04:08 36.6 C 94 H 20 97/63 L 94 09/11/20 23:35 88 09/11/20 23:29 36.5 C 87 16 100/69 94 Laboratory Results Abnormal lab results 09/11/20 09/11/20 09/11/20 Range/Units 11:21 16:14 20:21 RBC (4.2-5.4) M/uL Hct (37-47) % Chloride (98-107) mmol/L BUN/Creatinine Ratio (10-20) Glucose (70-99) mg/dl POC Glucose 147 H 207 H 130 H (70-99) mg/dl Calcium (8.5-10.1) mg/dl 09/12/20 09/12/20 09/12/20 Range/Units 04:29 04:31 07:40 RBC 4.12 L (4.2-5.4) M/uL Hct 36.2 L (37-47) % Chloride 108 H (98-107) mmol/L BUN/Creatinine Ratio 20.1 H (10-20) Glucose 147 H (70-99) mg/dl POC Glucose 165 H (70-99) mg/dl Calcium 8.1 L (8.5-10.1) mg/dl Medications Administered Current Inpatient Medications Acetaminophen (Acetaminophen 500 Mg Tab) 1,000 mg PO TID TITI Stop: 10/11/20 20:59 Last Admin: 09/11/20 20:36 Dose: 1,000 mg Documented by: Hydrocodone Bitart/Acetaminophen (Hydrocodone/Acetamophen 5/325mg Tab) 1 tab PO Q6H PRN PRN Reason: Pain Stop: 09/25/20 14:29 Last Admin: 09/11/20 16:56 Dose: 1 tab Documented by: Al Hydrox/Mg Hydrox/Simethicone (Aluminum/Magnesium Susp 30 Ml Udc) 15 ml PO Q4H PRN PRN Reason: Dyspepsia Stop: 10/09/20 17:08 Apixaban (Apixaban 5 Mg Tablet) 5 mg PO BID TITI Stop: 10/11/20 20:59 Last Admin: 09/11/20 20:35 Dose: 5 mg Documented by: Dextrose (Dextrose 50% 50 Ml Syringe) 25 - 50 ml IV UD PRN; Protocol PRN Reason: Hypoglycemia Protocol Stop: 10/09/20 14:04 Glucagon (Glucagon For Inj 1 Mg Vial) 1 mg SQ UD PRN; Protocol PRN Reason: Hypoglycemia Protocol Stop: 10/09/20 14:04 Glucose (Glucose 10 Tabs/Tube) 4 - 8 tabs PO UD PRN; Protocol PRN Reason: Hypoglycemia Protocol Stop: 10/09/20 14:04 Glucose (Glucose 40% Gel 15 Gm Tube) 15 - 30 gm PO UD PRN; Protocol PRN Reason: Hypoglycemia Protocol Stop: 10/09/20 14:04 Diltiazem HCl 125 mg/ Dextrose 125 mls @ 10 mls/hr IV .[id number] [facility]; Protocol Stop: 10/09/20 20:44 Last Titration: 09/12/20 07:05 Dose: 10 mg/hr, 10 mls/hr Documented by: Insulin Aspart (Insulin Aspart 100 Units/Ml 3 Ml Pen) 0 units SC ACHS [facility] Stop: 10/09/20 17:59 Last Admin: 09/12/20 07:49 Dose: 11 units Documented by: Insulin Glargine (Insulin Glargine Solostar 100 Units/Ml 3 Ml Pen) 0 units SC BID [facility]; Protocol Stop: 10/10/20 20:59 Last Admin: 09/11/20 21:15 Dose: 12 units Documented by: Lidocaine (Lidocaine 5% 1 Patch) 1 patch TD QAM [facility] Stop: 10/09/20 17:44 Last Admin: 09/11/20 07:33 Dose: 1 patch Documented by: Magnesium Oxide (Magnesium Oxide 400 Mg Tab) 400 mg PO QAM [facility] Stop: 10/12/20 08:59 Metoprolol Succinate (Metoprolol Succ 50mg Ext Rel Tab) 50 mg PO BID [facility] Stop: 10/11/20 20:59 Last Admin: 09/11/20 20:50 Dose: Not Given Documented by: Miscellaneous (Carbohydrates For Hypoglycemia ) 15 - 30 gm PO UD PRN PRN Reason: Hypoglycemia Protocol Stop: 10/09/20 14:04 Miscellaneous (Remove Lidoderm Patch) 1 ea N/A DAILY@2100 [facility] Stop: 10/09/20 22:59 Last Admin: 09/11/20 21:14 Dose: 1 ea Documented by: Miscellaneous Information (Pharmacy Glycemic Mgmt Consult) 1 ea N/A UD PRN PRN Reason: Consult Stop: 10/09/20 17:23 Ondansetron HCl (Ondansetron Inj 2 Mg/Ml 2 Ml Vial) 4 mg IV Q6H PRN PRN Reason: Nausea Stop: 10/09/20 17:08 Last Admin: 09/11/20 23:51 Dose: 4 mg Documented by: Oxycodone HCl (Oxycodone Hcl Ir 5 Mg Tab (Immediate Release)) 5 mg PO Q6H PRN PRN Reason: Moderate Pain Stop: 09/23/20 17:08 Last Admin: 09/11/20 20:38 Dose: 5 mg Documented by: Potassium Chloride (Potassium Chloride Crtab 20 Meq Tabcr) [facility] [place] Stop: 10/12/20 08:59 Vitamin D (Cholecalciferol 1,000 Units 25 Mcg Tab) 1,000 [facility] [place] Stop: 10/10/20 15:29 Last Admin: 09/11/20 07:33 Dose: 1,000 units Documented by: PG Care Time/CCT Total # of Minutes Spent Total Time Spent with Patient: Total time spent is greater than 50% in coordination of care (as documented) at patient's floor/unit and/or counseling patient: Coding Level of Care Code 67218 Subseq Hosp Care Lvl 2 Diagnoses Atrial fibrillation with RVR I48.91 Diabetes E11.9 Diabetes mellitus complication status: without complication Diabetes mellitus intermediate card tender insulin use: without correction use Diabetes mellitus type: type 2 Hypokalemia E87.6 Vitamin D deficiency E55.9 Right fibular fracture S82.401A Encounter type: initial encounter Fracture morphology: unspecified fracture morphology Fracture type: closed Vertebral compression fracture M48.50XA Knee effusion, right M25.461 Hyponatremia E87.1 DVT prophylaxis Z29.9 (1) Diabetes Diabetes mellitus complication status: without complication Diabetes mellitus correction insulin use: without intermediate card tender use Diabetes mellitus type: type 2 Qualified Code(s): E11.9 - Type 2 diabetes mellitus without complications (2) Right fibular fracture Encounter type: initial encounter Fracture morphology: unspecified fracture morphology Fracture type: closed
[2020-09-12] MEDS: METOPROLOL SUCC 50MG EXT REL TAB PO SCH ×2 (08:43→21:12)
[2020-09-12] MEDS: APIXABAN 5 MG TABLET PO SCH ×2 (08:44→21:11)
[2020-09-12] MEDS: POTASSIUM CHLORIDE CRTAB 20 MEQ TABCR PO SCH (08:44)
[2020-09-12] MEDS: LIDOCAINE 5% 1 PATCH TD SCH (08:44)
[2020-09-12] MEDS: MAGNESIUM OXIDE 400 MG TAB PO SCH (08:44)
[2020-09-12] MEDS: ACETAMINOPHEN 500 MG TAB PO SCH ×4 (08:45→21:17)
[2020-09-12] MEDS: CHOLECALCIFEROL 1,000 UNITS 25 MCG TAB PO SCH (08:45)
[2020-09-12] MEDS: INSULIN GLARGINE SOLOSTAR 100 UNITS/ML 3 ML PEN SC SCH ×2 (08:47→21:12)
--- NOTE | 2020-09-12 10:08 | Orthopedic Progress Note ---
Date of Service September 12, 2020 Assessment & Plan (1) Closed fibular fracture: Continue to treat conservatively with immobilization. Continue PT/OT. Continue nonweightbearing right lower extremity. Use walker to assist with ambulation. She may also need assistance of another person. Elevation above her heart as needed for pain and swelling. Ice to right ankle as needed for pain and swelling. Pain control per primary service. Recommend follow-up with Dr Benavidez in 2wks as an outpatient for repeat right ankle xrays. (2) Vertebral compression fracture: RICE Pain control per primary service. Consider consult to spine. Encourage incentive spirometry. (3) Fall: (4) Knee effusion, right: Has lateral tibia plateau bone bruise. Lateral meniscus tear, DJD, and large knee effusion. No surgical intervention required at this time. PROCEDURE:Discussed with the patient a right knee aspiration to decrease effusion with goal of decreased pain and increased mobility. Discussed procedure, risks, and outcomes. Patient wishes to proceed with procedure this am. Official time out was performed, and verbal consent was given. At bedside. The right knee was cleansed with iodine x 3. With the right knee in a slightly flexed position, an 18 guage needle was placed into the superolateral patellar pouch. Using a 60cc syringe, 60ccs of blood aspirated from her knee. Patient tolerated the procedure quite well. The needle was then removed and the area was cleansed with an alcohol swab. multiple 4x4s were placed over the area. Hemostasis was achieved. Her knee was then re-wrapped with 2 Jarrod bandages to help with compression. EZ wrap ice pack was then applied. Patient tolerated the procedure without complaints. Right knee JARROD wrap to right knee for effusion. Can be removed to change lidoderm patch and re-applied. Ice right knee as much as 20min every hour if patient tolerates. Continue pain medication per primary service. Continue PT/OT. Encourage right knee motion as tolerated. Recommend follow-up with Dr Benavidez in 2wks upon discharge. I, Dr. Benavidez, saw and examined the patient and discussed the management with my PA. I reviewed my PAs note and agree with the documented findings and the plan of care I developed. Admission and Anticipated Discharge Date Admission Date: September 09, 2020 Subjective Patient feeling better this am. Still refusing PT/OT bc of right leg pain and some back pain. Fearful of moving right leg especially her knee. Discussed again the option of aspiration to her right knee to alleviate some of the pressure hopefully improving pain, motion, and function. Patient agreeable to proceed with Right Knee Aspiration. Physical Exam Physical Exam: In bed. Awake. Alert and coherent. Right leg at rest in external rotated position. Right knee in slight flexion. right ankle in plaster splint. Right knee with 3+ effusion. Pain with all motion. Sensation intact to B feet. Brisk capillary refill. R LE with SCD. Palpable pulses R LE with neg homans and soft calf. Results & Data ([facility]) Vital Signs (Past 12 Hours) Vital Signs Temp Pulse Pulse Resp BP BP Pulse Ox 09/12/20 08:15 36.8 C 75 98 H 136/74 09/12/20 04:08 36.6 C 94 H 20 97/63 L 94 09/11/20 23:35 88 09/11/20 23:29 36.5 C 87 16 100/69 94 Laboratory Results 09/12/20 09/12/20 09/12/20 Range/Units 07:40 04:31 04:31 WBC (4.8-10.8) K/uL RBC (4.2-5.4) M/uL Hgb (12.0-16.0) g/dL Hct (37-47) % MCV (80-100) fL MCH (25-34) pg MCHC (32-36) g/dL RDW Std Deviation (36.4-46.3) fL RDW Coeff of Jude (11.5-14.5) % Plt Count (130-400) K/uL MPV (7.4-10.4) fL APTT 27.3 (21.0-31.0) Seconds PTT Ratio 1.0 Sodium 139 (136-145) mmol/L Potassium 3.6 (3.5-5.1) mmol/L Chloride 108 H (98-107) mmol/L Carbon Dioxide 25 (21-32) mmol/L Anion Gap 6.0 (3-11) BUN 13 (7-18) mg/dl Creatinine 0.66 (0.6-1.2) mg/dl Est Cr Clr Drug Dosing 62.4 ml/min Est GFR ( Amer) 95.3 Est GFR (Non-Af Amer) 82.3 BUN/Creatinine Ratio 20.1 H (10-20) Glucose 147 H (70-99) mg/dl POC Glucose 165 H (70-99) mg/dl Calcium 8.1 L (8.5-10.1) mg/dl Phosphorus 3.4 (2.5-4.9) mg/dl Magnesium 2.0 (1.8-2.4) mg/dl 09/12/20 09/11/20 09/11/20 Range/Units 04:29 20:21 16:14 WBC 6.38 (4.8-10.8) K/uL RBC 4.12 L (4.2-5.4) M/uL Hgb 12.1 (12.0-16.0) g/dL Hct 36.2 L (37-47) % MCV 87.9 (80-100) fL MCH 29.4 (25-34) pg MCHC 33.4 (32-36) g/dL RDW Std Deviation 41.2 (36.4-46.3) fL RDW Coeff of Jude 12.7 (11.5-14.5) % Plt Count 254 (130-400) K/uL MPV 9.4 (7.4-10.4) fL APTT (21.0-31.0) Seconds PTT Ratio Sodium (136-145) mmol/L Potassium (3.5-5.1) mmol/L Chloride (98-107) mmol/L Carbon Dioxide (21-32) mmol/L Anion Gap (3-11) BUN (7-18) mg/dl Creatinine (0.6-1.2) mg/dl Est Cr Clr Drug Dosing ml/min Est GFR ( Amer) Est GFR (Non-Af Amer) BUN/Creatinine Ratio (10-20) Glucose (70-99) mg/dl POC Glucose 130 H 207 H (70-99) mg/dl Calcium (8.5-10.1) mg/dl Phosphorus (2.5-4.9) mg/dl Magnesium (1.8-2.4) mg/dl 09/11/20 Range/Units 11:21 WBC (4.8-10.8) K/uL RBC (4.2-5.4) M/uL Hgb (12.0-16.0) g/dL Hct (37-47) % MCV (80-100) fL MCH (25-34) pg MCHC (32-36) g/dL RDW Std Deviation (36.4-46.3) fL RDW Coeff of Jude (11.5-14.5) % Plt Count (130-400) K/uL MPV (7.4-10.4) fL APTT (21.0-31.0) Seconds PTT Ratio Sodium (136-145) mmol/L Potassium (3.5-5.1) mmol/L Chloride (98-107) mmol/L Carbon Dioxide (21-32) mmol/L Anion Gap (3-11) BUN (7-18) mg/dl Creatinine (0.6-1.2) mg/dl Est Cr Clr Drug Dosing ml/min Est GFR ( Amer) Est GFR (Non-Af Amer) BUN/Creatinine Ratio (10-20) Glucose (70-99) mg/dl POC Glucose 147 H (70-99) mg/dl Calcium (8.5-10.1) mg/dl Phosphorus (2.5-4.9) mg/dl Magnesium (1.8-2.4) mg/dl (1) Closed fibular fracture Encounter type: initial encounter Fibula location: lateral malleolus Fracture alignment: displaced Laterality: right Qualified Code(s): S82.61XA - Displaced fracture of lateral malleolus of right fibula, initial encounter for closed fracture (2) Fall Encounter type: initial encounter Qualified Code(s): W19.XXXA - Unspecified fall, initial encounter
--- NOTE | 2020-09-12 10:49 | Pharmacy Report ---
Pharmacy Glycemic Short Note 2 - Date of Service September 12, 2020 - Glycemic Short BSG Results (Last 24 hours): OUTPATIENT ANTIDIABETIC REGIMEN: * Metformin 1000 mg PO BID * Patient has not been taking Pioglitazone, Jardiance, or Glipizide secondary to cost per CDE * A1c = 13% (09/09/20) ASSESSMENT: 09/12: * Patient required 79 units of insulin yesterday * 34 units basal + 45 units bolus * BSGs were [phone] mg/dL - above goal * Fasting BSG was 165 mg/dL - greatly improved * She has received 34 units of basal insulin for two straight days now and fasting BSGs are improved. * Will ensure patient gets 17 units of basal this morning and continue with scale to provide ~34 units of basal per day. * Postprandial BSG was elevated at 226 mg/dL today. Will tighten goal range to provide more insulin. * Patient is refusing any insulin at discharge despite her A1c. Was going to transition to oral agents inpatient to see if they would provide any better control for her. However, with her being discharged to a rehab facility, I will leave her on basal-bolus insulin while inpatient as this is what will be utilized at facility. Will provide oral agent recommendations for post- discharge from rehab facility. 09/11: * Little is a 80 yo T2DM admitted with closed fibular fracture after mechanical fall * Severe hyperglycemia at time of admission. Uncontrolled T2DM as evidenced by A1c of 13% Patient was started on SQ basal + bolus regimen on admission. * Fasting BSG of 210 mg/dL is above goal. Unsure if this is an improvement as we do not have a fasting BSG from yesterday. Will continue to titrate Lantus. * Post prandial BSGs are improving but remain significantly above goal. Novolog parameters will be tightened. PLAN FOR INPATIENT GLYCEMIC CONTROL: * Hold outpatient oral diabetes medications * Basal insulin - increased scale * Lantus 15-20 units SQ per scale BID: * 15 units for BSG < 120 mg/dL, 17 units for BSG 120 - 200 mg/dL, 20 units for BSG > 200 mg/dL * Bolus insulin - tightened goal range * NovoLog per scale ACHS or Q6hrs while NPO * Goal Range: Low 110 mg/dL - High 140 mg/dL * Correction Factor: 15 mg/dL/unit * Nutritional / Prandial insulin per carb ratio of 1 unit per 5 grams CHO consumed PLAN FOR DISCHARGE: * HbA1c = 13% which is very uncontrolled. Goal HbA1c for this patient based on her age and comorbidities should be less than 8.0-8.5%. Per CDE, patient is re fusing any insulin or SMBG upon discharge. She was previously prescribed Pioglitazone which she has stopped taking. Jardiance and Glipizide were added in May 2020 but patient has never taken secondary to cost of medications. She is open to oral agents upon discharge. * She is being discharged to a rehab facility so would recommend that she is continued on basal-bolus insulin at rehab facility. * Upon discharge from rehab facility, would recommend: * Continuing Metformin 1000 mg PO BIDM - Check Vitamin B12 & Folate level and if deficient then add Vitamin B12 1000 mg PO daily. * Start Glipizide XL 5 mg PO daily with breakfast. Titrate upwards as needed to max of 20 mg per day. * Start Pioglitazone 15 mg PO daily. Titrate upwards as needed to max of 45 mg per day.
[2020-09-12] MEDS: dilTIAZem HCL 125 MG in DEXTROSE 5% 100 ML IV SCH (11:39)
[2020-09-12] MEDS: oxyCODONE HCL IR 5 MG TAB (IMMEDIATE RELEASE) PO PRN ×2 (15:14→21:11)
[2020-09-12 15:22] LABS: Appearance Urine Turbid (Clear); Bacteria Urine Automated 4+ (Negative); Bilirubin Urine Negative (Negative); Blood Urine 2+ (Negative); Color Urine Yellow; Epithelial Cell Urine Auto >30 /lpf (0-5); Glucose Urine UA Negative (Negative); Ketones Urine Negative (Negative); Leukocyte Esterase Urine 3+ (Negative); Nitrite Urine Positive (Negative); Protein Urine 1+ (Negative); RBC Urine Automated >30 /hpf (0-4); Specific Gravity Urine 1.015 (1.000-1.030); Urobilinogen Urine Negative (Negative); WBC Urine Automated >30 /hpf (0-5); pH Urine 5.5 (4.5-7.5)
[2020-09-12 15:45] LABS: Cast Urine Automated 0 /lpf (0-5)
--- NOTE | 2020-09-12 20:28 | Cardiology Progress Note ---
Date of Service September 12, 2020 Assessment & Plan (1) Atrial fibrillation with RVR: (2) Hypokalemia: (3) Diabetes: (4) Closed fibular fracture: (5) Vertebral compression fracture: Agree with current plan, continued upward titration of metoprolol. Ideally would aim for potassium of 4.0 or greater and magnesium of 2.0 or greater, agree with oral magnesium and potassium supplements. Agree with apixaban anticoagulation for [id number] of 4. If she does have frequent falls as an outpatient, could reevaluate quality of life issues with patient/family to determine relative risks/benefits of long-term anticoagulation. Would not withhold anticoagulation based on a single mechanical fall. Dr. Esposito will be covering cardiology for the weekend, please contact him if the patient has any change in clinical status. Admission and Anticipated Discharge Date Admission Date: September 09, 2020 Subjective Uneventful night. Weaned off diltiazem, metoprolol being titrated. No chest discomfort, subjective palpitations, or dyspnea at rest. Ventricular rate is still mildly elevated but stable (110-115 bpm range). Physical Exam Physical Exam: Elderly white female appears comfortable. Systolic blood pressure 94-119 mmHg over the past 24 hours. Telemetry showed ventricular rate 110-115 bpm range Skin: no ecchymoses or generalized lesions. HEENT: unremarkable. Neck: Jugular venous pulse just above the clavicle at 45 degrees, no carotid bruits. Lungs: clear and equal breath sounds. Cardiac: Irregular, tachycardic rhythm with 2/6 holosystolic murmur at the apex, no diastolic murmur or gallop. Abdomen: Mildly distended with diffuse tenderness but no guarding or rigidity. Extremities: Immobilized right lower extremity, good capillary refill, warm. Neurologic: normal affect, nonfocal. Results & Data ([facility]) Vital Signs (Past 12 Hours) Vital Signs Temp Pulse Resp BP Pulse Ox 09/12/20 19:44 99.3 F 114 H 21 105/72 93 09/12/20 16:00 98.2 F 83 16 119/64 99 09/12/20 12:05 98.2 F 90 18 94/67 L 94 Laboratory Results Normal electrolytes, BUN 13, creatinine 0.66. PG Care Time/CCT Total # of Minutes Spent Total Time Spent with Patient: Total time spent is greater than 50% in coordination of care (as documented) at patient's floor/unit and/or counseling patient: Coding Level of Care Code 47875 Subseq Hosp Care Lvl 3 Diagnoses Atrial fibrillation with RVR I48.91 Hypokalemia E87.6 Diabetes E11.9 Diabetes mellitus type: type 2 Diabetes mellitus custodial insulin use: without data management analyst use Diabetes mellitus complication status: without complication Closed fibular fracture S82.61XA Encounter type: initial encounter Fibula location: lateral malleolus Fracture alignment: displaced Laterality: right Vertebral compression fracture M48.50XA (1) Diabetes Diabetes mellitus type: type 2 Diabetes mellitus custodial insulin use: without custodial use Diabetes mellitus complication status: without complication Qualified Code(s): E11.9 - Type 2 diabetes mellitus without complications (2) Closed fibular fracture Encounter type: initial encounter Fibula location: lateral malleolus Fracture alignment: displaced Laterality: right Qualified Code(s): S82.61XA - Displaced fracture of lateral malleolus of right fibula, initial encounter for closed fracture
[2020-09-13] MEDS ORDERED: METOPROLOL TARTRATE 1 MG/ML VIAL IV PRN (02:19)
[2020-09-13] MEDS ORDERED: METOPROLOL TARTRATE 1 MG/ML VIAL IV ONE (02:37)
[2020-09-13] MEDS: oxyCODONE HCL IR 5 MG TAB (IMMEDIATE RELEASE) PO PRN ×2 (03:51→20:49)
[2020-09-13 06:59] LABS: Hematocrit (blood only) 39.3 % (37-47); Hemoglobin 13.1 g/dL (12.0-16.0); Mean Corpuscular Hemoglobin 29.7 pg (25-34); Mean Corpuscular Hgb Conc 33.3 g/dL (32-36); Mean Corpuscular Volume 89.1 fL (80-100); Mean Platelet Volume 9.4 fL (7.4-10.4); Platelet Count 300 K/uL (130-400); RDW Standard Deviation 42.6 fL (36.4-46.3); Red Blood Count 4.41 M/uL (4.2-5.4); White Blood Count 8.39 K/uL (4.8-10.8)
[2020-09-13 07:50] LABS: BUN Creatinine Ratio 19.3 (10-20); Calcium 9.1 mg/dl (8.5-10.1); Creatinine Clr Calc Pharmacy 61.7 ml/min; Est GFR (African American) 94.4; Est GFR (Non-African American) 81.5; Phosphorus 3.3 mg/dl (2.5-4.9)
[2020-09-13] MEDS: MAGNESIUM OXIDE 400 MG TAB PO SCH (08:05)
[2020-09-13] MEDS: METOPROLOL SUCC 50MG EXT REL TAB PO SCH ×2 (08:05→20:49)
[2020-09-13] MEDS: LIDOCAINE 5% 1 PATCH TD SCH ×2 (08:06→15:39)
[2020-09-13] MEDS: POTASSIUM CHLORIDE CRTAB 20 MEQ TABCR PO SCH (08:06)
[2020-09-13] MEDS: APIXABAN 5 MG TABLET PO SCH ×2 (08:06→20:50)
[2020-09-13] MEDS: CHOLECALCIFEROL 1,000 UNITS 25 MCG TAB PO SCH (08:06)
[2020-09-13] MEDS: INSULIN GLARGINE SOLOSTAR 100 UNITS/ML 3 ML PEN SC SCH ×2 (08:14→21:05)
[2020-09-13] MEDS: INSULIN ASPART 100 UNITS/ML 3 ML PEN SC SCH ×4 (08:15→21:06)
[2020-09-13] MEDS ORDERED: ERGOCALCIFEROL 50,000 UNITS 1250 MCG CAP PO ONE (08:20)
[2020-09-13 08:30] LABS: Magnesium 1.9 mg/dl (1.8-2.4); Potassium 4.4 mmol/L (3.5-5.1)
--- NOTE | 2020-09-13 08:45 | XRay Report ---
SINGLE VIEW CHEST CLINICAL HISTORY: Hypoxia. FINDINGS: An AP, portable, upright chest radiograph is compared to study dated 09/09/2020. The heart is mildly enlarged noting atherosclerotic calcification of the thoracic aorta. The pulmonary vasculatur e is noncongested. There are low lung volumes. There are small pleural effusions with bibasilar atele ctasis. No airspace consolidation typical for pneumonia or pneumothorax is seen. The skeletal structu res are osteopenic. The bony thorax is grossly intact. IMPRESSION: 1. Cardiomegaly without radiographic evidence of congestive failure. 2. Small pleural effusions. ACT 112: Negative or not required by law. Electronically signed by: Jeronimo Orosco M.D. 09/13/2020 8:43 AM
[2020-09-13] MEDS: ACETAMINOPHEN 500 MG TAB PO SCH ×3 (08:59→21:03)
[2020-09-13] MEDS: ADVANCED PROBIOTIC 1250 MG CAPSULE PO SCH (09:14)
[2020-09-13] MEDS: cephALEXin 500 MG CAP PO SCH ×2 (09:14→20:49)
[2020-09-13] MEDS: HYDROCODONE/ACETAMOPHEN 5/325MG TAB PO PRN ×2 (09:24→17:29)
--- NOTE | 2020-09-13 11:39 | Pharmacy Report ---
Pharmacy Glycemic Short Note 2 - Date of Service September 13, 2020 - Glycemic Short BSG Results (Last 24 hours): 09/12/20 09/12/20 09/13/20 16:39 20:10 06:26 Glucose 238 H POC Glucose 190 H 162 H 09/13/20 09/13/20 07:21 11:15 Glucose POC Glucose 238 H 240 H OUTPATIENT ANTIDIABETIC REGIMEN: * Metformin 1000 mg PO BID * Patient has not been taking Pioglitazone, Jardiance, or Glipizide secondary to cost per CDE * A1c = 13% (09/09/20) ASSESSMENT: 09/13: * Patient received total of 85 units of insulin yesterday, of which 34 units were basal insulin * Fasting BSG elevated at 238 mg/dL - plan to increase basal insulin ~15-30% * Tightened CF at lunch 09/12: * Patient required 79 units of insulin yesterday * 34 units basal + 45 units bolus * BSGs were [phone] mg/dL - above goal * Fasting BSG was 165 mg/dL - greatly improved * She has received 34 units of basal insulin for two straight days now and fasting BSGs are improved. * Will ensure patient gets 17 units of basal this morning and continue with scale to provide ~34 units of basal per day. * Postprandial BSG was elevated at 226 mg/dL today. Will tighten goal range to provide more insulin. * Patient is refusing any insulin at discharge despite her A1c. Was going to transition to oral agents inpatient to see if they would provide any better control for her. However, with her being discharged to a rehab facility, I will leave her on basal-bolus insulin while inpatient as this is what will be utilized at facility. Will provide oral agent recommendations for post- discharge from rehab facility. PLAN FOR INPATIENT GLYCEMIC CONTROL: * Hold outpatient oral diabetes medications * Basal insulin - increased scale * Lantus 18-22 units SQ per scale BID: * Bolus insulin - tightened cf * NovoLog per scale ACHS or Q6hrs while NPO * Goal Range: Low 110 mg/dL - High 140 mg/dL * Correction Factor: 12 mg/dL/unit * Nutritional / Prandial insulin per carb ratio of 1 unit per 5 grams CHO consumed PLAN FOR DISCHARGE: * HbA1c = 13% which is very uncontrolled. Goal HbA1c for this patient based on her age and comorbidities should be less than 8.0-8.5%. Per CDE, patient is refusing any insulin or SMBG upon discharge. She was previously prescribed Pioglitazone which she has stopped taking. Jardiance and Glipizide were added in May 2020 but patient has never taken secondary to cost of medications. She is open to oral agents upon discharge. * She is being discharged to a rehab facility so would recommend that she is continued on basal-bolus insulin at rehab facility. * Upon discharge from rehab facility, would recommend: * Continuing Metformin 1000 mg PO BIDM - Check Vitamin B12 & Folate level and if deficient then add Vitamin B12 1000 mg PO daily. * Start Glipizide XL 5 mg PO daily with breakfast. Titrate upwards as needed to max of 20 mg per day. * Start Pioglitazone 15 mg PO daily. Titrate upwards as needed to max of 45 mg per day.
[2020-09-13] MEDS: DIGOXIN 250 MCG in SYRINGE 9 ML IV SCH ×2 (12:27→17:21)
--- NOTE | 2020-09-13 14:32 | Hospitalist Progress Note ---
Date of Service September 13, 2020 Assessment & Plan (1) Atrial fibrillation with RVR: Despite titration of metoprolol xl to 100mg BID her rate control is still poor. I suspect mild hypovolemia, pain, etc are contributing to rapid rates. TSH wnl. BPs are low today (SBPs in 90s). Thus, diltiazem is not great choice. Further, EF is uncertain. Plan - * 500cc NS bolus for low BP; of note -- BPs may improve as well w/ better rate control * dig load -- 0.25mg q6h x 4 doses * echo - check LV function, r/o valvular disease * could consider restarting a dilt drip or PO dilt but hold off for now * keep K and mag wnl For anticoagulation - cont eliquis 5mg BID. (2) Hypotension: suspect hypovolemia, pain meds, rapid a.fib, etc all contributing. 500cc NS bolus then repeat BPs keep MAP >65 (3) Diabetes: Type 2 diabetes only taking Metformin. HbA1C 13%. pharmacy glycemic team adjusting basal-bolus insulins. (4) Hypokalemia: replaced & resolved (5) Vitamin D deficiency: 25-OH Vitamin D level low at 14 start ergocalciferol 58154 units qweekly x 8 weeks (6) Right fibular fracture: s/p splinting. Orthopedics recommends rest, elevation, nonweightbearing to RLE, walker. Pain meds -- tylenol 1gm TID scheduled; norco prn; oxycodone prn. (7) Vertebral compression fracture: L3 compression fracture. Replace low vit D. pain meds. lidoderm. k-pad. etc. (8) Knee effusion, right: Has lateral tibia plateau bone bruise, lateral meniscus tear, DJD, large knee effusion. s/p arthrocentesis 09/12/20 with 60cc bloody fluid obtained. likely due to trauma/fall. pain meds, ice, etc. (9) Hyponatremia: resolved (10) UTI (urinary tract infection): start keflex 500mg BID x 7 days lactinex daily (11) Constipation: senna/miralax for maintenance dulcolax suppos x 1 KUB x-ray findings noted (12) DVT prophylaxis: kalyanijohanny attempted to call pt's daughter Alix at 2 numbers -- [phone], as well as number listed in chair left messages will try again tomorrow cont PT, OT Admission and Anticipated Discharge Date Admission Date: September 09, 2020 Subjective patient w/ multiple complaints including right ankle pain, upper abdominal discomfort, chest wall discomfort with taking deep breaths or with pushing on chest, and just overall not feeling good. a.fib rates 120s or higher most times of the day. denies palpitations. had right knee arthrocentesis yesterday - 60cc bloody fluid removed. did work with PT today - went "ok." eating fair. denies back pain. staff report last bowel movement about 5 days ago. Review of Systems Constitutional: + fatigue and + anorexia; no fever and no chills Respiratory: no cough Cardiovascular: no chest pain Gastrointestinal: as per Subjective / HPI, + abdominal pain and + constipation Musculoskeletal: as per Subjective / HPI Physical Exam Constitutional: + acute distress (due to pain in right leg ); no altered mental status ENMT: external ear and nose normal, oropharynx normal Respiratory: normal respiratory effort, lungs clear to auscultation Cardiovascular: Rate/Rhythm: + tachycardic and + irregularly irregular Heart Sounds: normal S1 and normal S2 Vessels: posterior tibial pulses present and dorsalis pedis pulses present; no JVD Extremities: no edema Chest (Breasts): Additional Comments: tender to palpation over left costal margin Gastrointestinal (Abdomen): Inspection/Auscultation: + abdomen distended and normal bowel sounds Percussion/Palpation: + abdomen tender (high epigastric region ); no guarding and no hepatosplenomegaly Musculoskeletal: right ankle/distal leg in splint Psychiatric: Orientation: alert and oriented x 3 Results & Data Results & Data ([facility]) Vital Signs (Past 12 Hours) Vital Signs Temp Pulse Pulse Pulse Resp BP BP 09/13/20 12:27 120 H 09/13/20 11:31 36.4 C L 98 H 19 09/13/20 09:14 122 H 99/66 L 09/13/20 09:06 96 H 122 H 99/66 L 09/13/20 07:22 36.7 C 102 H 19 09/13/20 03:47 37.1 C 95 H 18 121/76 09/13/20 02:43 126 H 09/13/20 02:42 37.2 C 119 H 20 BP Pulse Ox 09/13/20 12:27 09/13/20 11:31 92/63 L 95 09/13/20 09:14 09/13/20 09:06 09/13/20 07:22 96/58 L 96 09/13/20 03:47 97 09/13/20 02:43 09/13/20 02:42 100/60 97 Laboratory Results Laboratory Results - last 24 hr 09/12/20 09/12/20 09/12/20 15:00 16:39 20:10 WBC RBC Hgb Hct MCV MCH MCHC RDW Std Deviation RDW Coeff of Jude Plt Count MPV Sodium Potassium Chloride Carbon Dioxide Anion Gap BUN Creatinine Est Cr Clr Drug Dosing Est GFR ( Amer) Est GFR (Non-Af Amer) BUN/Creatinine Ratio Glucose POC Glucose 190 H 162 H Calcium Phosphorus Magnesium Urine Color Yellow Urine Appearance Turbid A Urine pH 5.5 Ur Specific Alpine 1.015 Urine Protein 1+ H Urine Glucose (UA) Negative Urine Ketones Negative Urine Blood 2+ H Urine Nitrite Positive A Urine Bilirubin Negative Urine Urobilinogen Negative Ur Leukocyte Esterase 3+ H Urine WBC (Auto) >30 H Urine RBC (Auto) >30 H U Hyaline Cast (Auto) 0 U Epithel Cells (Auto) >30 H Urine Bacteria (Auto) 4+ H 09/13/20 09/13/20 09/13/20 06:26 06:26 07:21 WBC 8.39 RBC 4.41 Hgb 13.1 Hct 39.3 MCV 89.1 MCH 29.7 MCHC 33.3 RDW Std Deviation 42.6 RDW Coeff of Jude 13.0 Plt Count 300 MPV 9.4 Sodium 137 Potassium Chloride 106 Carbon Dioxide 23 Anion Gap 8.0 BUN 13 Creatinine 0.68 Est Cr Clr Drug Dosing 61.7 Est GFR ( Amer) 94.4 Est GFR (Non-Af Amer) 81.5 BUN/Creatinine Ratio 19.3 Glucose 238 H POC Glucose 238 H Calcium 9.1 Phosphorus 3.3 Magnesium Urine Color Urine Appearance Urine pH Ur Specific Alpine Urine Protein Urine Glucose (UA) Urine Ketones Urine Blood Urine Nitrite Urine Bilirubin Urine Urobilinogen Ur Leukocyte Esterase Urine WBC (Auto) Urine RBC (Auto) U Hyaline Cast (Auto) U Epithel Cells (Auto) Urine Bacteria (Auto) 09/13/20 09/13/20 08:01 11:15 WBC RBC Hgb Hct MCV MCH MCHC RDW Std Deviation RDW Coeff of Jude Plt Count MPV Sodium Potassium 4.4 D Chloride Carbon Dioxide Anion Gap BUN Creatinine Est Cr Clr Drug Dosing Est GFR ( Amer) Est GFR (Non-Af Amer) BUN/Creatinine Ratio Glucose POC Glucose 240 H Calcium Phosphorus Magnesium 1.9 Urine Color Urine Appearance Urine pH Ur Specific Alpine Urine Protein Urine Glucose (UA) Urine Ketones Urine Blood Urine Nitrite Urine Bilirubin Urine Urobilinogen Ur Leukocyte Esterase Urine WBC (Auto) Urine RBC (Auto) U Hyaline Cast (Auto) U Epithel Cells (Auto) Urine Bacteria (Auto) PG Care Time/CCT Total # of Minutes Spent Total Time Spent with Patient: Total time spent is greater than 50% in coordination of care (as documented) at patient's floor/unit and/or counseling patient: Coding Level of Care Code 72911 Subseq Hosp Care Lvl 3 Diagnoses Atrial fibrillation with RVR I48.91 Hypotension I95.9 Diabetes E11.9 Diabetes mellitus complication status: without complication Diabetes mellitus senior living insulin use: without senior living use Diabetes mellitus type: type 2 Hypokalemia E87.6 Vitamin D deficiency E55.9 Right fibular fracture S82.401A Encounter type: initial encounter Fracture morphology: unspecified fracture morphology Fracture type: closed Vertebral compression fracture M48.50XA Knee effusion, right M25.461 Hyponatremia E87.1 UTI (urinary tract infection) N39.0 Constipation K59.00 DVT prophylaxis Z29.9 (1) Diabetes Diabetes mellitus complication status: without complication Diabetes mellitus senior living insulin use: without senior living use Diabetes mellitus type: type 2 Qualified Code(s): E11.9 - Type 2 diabetes mellitus without complications (2) Right fibular fracture Encounter type: initial encounter Fracture morphology: unspecified fracture morphology Fracture type: closed
[2020-09-13] MEDS ORDERED: SODIUM CHLORIDE 0.9% 500 ML IV ONE (14:45)
[2020-09-13] MEDS: SENNA 8.6 MG TAB PO SCH (15:39)
[2020-09-13] MEDS: POLYETHYLENE (MIRALAX) 17 GM PACK PO SCH (15:39)
[2020-09-13] MEDS: ONDANSETRON INJ 2 MG/ML 2 ML VIAL IV PRN (17:29)
[2020-09-13] MEDS ORDERED: bisacodyL 10 MG SUPP PR STA (18:12)
[2020-09-13] MEDS ORDERED: dilTIAZem HCl 5 MG/ML 5 ML VIAL IV STA (18:12)
--- NOTE | 2020-09-13 18:51 | XRay Report ---
KUB CLINICAL HISTORY: Abdominal distention. FINDINGS: 2 AP, portable, supine abdominal radiographs are correlated with abdominal CT dated 2. There is a nonobstructed abdominal bowel gas pattern noting moderate fecal retention in the right colon. No evidence of intraperitoneal free air is seen on these supine views. There are no abnormal a bdominal calcifications. The skeletal structures are osteopenic. Spondylotic changes noted in the lum bar spine. IMPRESSION: Nonobstructed abdominal bowel gas pattern. Electronically signed by: Jeronimo Orosco M.D. 09/13/2020 6:50 PM
[2020-09-14] MEDS ORDERED: INSULIN ASPART 100 UNITS/ML 3 ML PEN SC SCH
[2020-09-14] MEDS: DIGOXIN 250 MCG in SYRINGE 9 ML IV SCH ×2 (00:23→05:43)
[2020-09-14] MEDS: oxyCODONE HCL IR 5 MG TAB (IMMEDIATE RELEASE) PO PRN (04:55)
[2020-09-14 06:51] LABS: BUN Creatinine Ratio 16.6 (10-20); Calcium 8.7 mg/dl (8.5-10.1); Creatinine Clr Calc Pharmacy 65.5 ml/min; Est GFR (African American) 95.8; Est GFR (Non-African American) 82.7; Potassium 4.4 mmol/L (3.5-5.1)
[2020-09-14] MEDS: INSULIN ASPART 100 UNITS/ML 3 ML PEN SC SCH ×4 (08:09→21:16)
[2020-09-14] MEDS: INSULIN GLARGINE SOLOSTAR 100 UNITS/ML 3 ML PEN SC SCH ×2 (08:10→08:29)
[2020-09-14] MEDS: POTASSIUM CHLORIDE CRTAB 20 MEQ TABCR PO SCH (08:17)
[2020-09-14] MEDS: MAGNESIUM OXIDE 400 MG TAB PO SCH (08:17)
[2020-09-14] MEDS: METOPROLOL SUCC 50MG EXT REL TAB PO SCH ×3 (08:17→22:39)
[2020-09-14] MEDS: APIXABAN 5 MG TABLET PO SCH ×2 (08:18→21:13)
[2020-09-14] MEDS: cephALEXin 500 MG CAP PO SCH ×2 (08:18→21:20)
[2020-09-14] MEDS: ADVANCED PROBIOTIC 1250 MG CAPSULE PO SCH (08:18)
[2020-09-14] MEDS: SENNA 8.6 MG TAB PO SCH (08:19)
[2020-09-14] MEDS: ACETAMINOPHEN 500 MG TAB PO SCH ×3 (08:19→21:15)
[2020-09-14] MEDS: POLYETHYLENE (MIRALAX) 17 GM PACK PO SCH ×2 (08:20→21:12)
[2020-09-14] MEDS: LIDOCAINE 5% 1 PATCH TD SCH ×2 (08:21)
--- NOTE | 2020-09-14 09:24 | XCELERA ---
[id number]
--- NOTE | 2020-09-14 13:39 | Pharmacy Report ---
Pharmacy Glycemic Short Note 2 - Date of Service September 14, 2020 - Glycemic Short BSG Results (Last 24 hours): 09/13/20 09/13/20 09/14/20 16:17 20:26 00:07 Glucose POC Glucose 121 H 87 160 H 09/14/20 09/14/20 09/14/20 05:46 07:11 11:08 Glucose 223 H POC Glucose 214 H 223 H OUTPATIENT ANTIDIABETIC REGIMEN: * Metformin 1000 mg PO BID * Patient has not been taking Pioglitazone, Jardiance, or Glipizide secondary to cost per CDE * A1c = 13% (09/09/20) ASSESSMENT: 09/14: * Patient received total of 70 units of insulin yesterday, of which 22 units were basal. Patient refusing evening Lantus last night. * Fasting BSG elevated at 223 mg/dL - will give 28 units this AM to make up for missed dose last evening, may add small scale for HS if still trending upward * Yesterday's BSGs trending down throughout the day will loosen CF/CR with lunch time check 09/13: * Patient received total of 85 units of insulin yesterday, of which 34 units were basal insulin * Fasting BSG elevated at 238 mg/dL - plan to increase basal insulin ~15-30% * Tightened CF at lunch 09/12: * Patient required 79 units of insulin yesterday * 34 units basal + 45 units bolus * BSGs were [phone] mg/dL - above goal * Fasting BSG was 165 mg/dL - greatly improved * She has received 34 units of basal insulin for two straight days now and fasting BSGs are improved. * Will ensure patient gets 17 units of basal this morning and continue with scale to provide ~34 units of basal per day. * Postprandial BSG was elevated at 226 mg/dL today. Will tighten goal range to provide more insulin. * Patient is refusing any insulin at discharge despite her A1c. Was going to transition to oral agents inpatient to see if they would provide any better control for her. However, with her being discharged to a rehab facility, I will leave her on basal-bolus insulin while inpatient as this is what will be utilized at facility. Will provide oral agent recommendations for post- discharge from rehab facility. PLAN FOR INPATIENT GLYCEMIC CONTROL: * Hold outpatient oral diabetes medications * Basal insulin * Lantus 28 units daily * Lantus HS 0-10 units if BSG elevated * Bolus insulin - tightened cf * NovoLog per scale ACHS or Q6hrs while NPO * Goal Range: Low 110 mg/dL - High 140 mg/dL * Correction Factor: 12 mg/dL/unit * Nutritional / Prandial insulin per carb ratio of 1 unit per 5 grams CHO consumed PLAN FOR DISCHARGE: * HbA1c = 13% which is very uncontrolled. Goal HbA1c for this patient based on her age and comorbidities should be less than 8.0-8.5%. Per CDE, patient is refusing any insulin or SMBG upon discharge. She was previously prescribed Pioglitazone which she has stopped taking. Jardiance and Glipizide were added in May 2020 but patient has never taken secondary to cost of medications. She is open to oral agents upon discharge. * She is being discharged to a rehab facility so would recommend that she is continued on basal-bolus insulin at rehab facility. * Upon discharge from rehab facility, would recommend: * Continuing Metformin 1000 mg PO BIDM - Check Vitamin B12 & Folate level and if deficient then add Vitamin B12 1000 mg PO daily. * Start Glipizide XL 5 mg PO daily with breakfast. Titrate upwards as needed to max of 20 mg per day. * Start Pioglitazone 15 mg PO daily. Titrate upwards as needed to max of 45 mg per day.
[2020-09-14] MEDS ORDERED: TAPENTADOL HCL ER 50 MG TABCR PO ONE (15:31)
[2020-09-14] MEDS ORDERED: SOD PHOSPHATE/SOD BIPHOSPHATE ENEMA 132 ML BTL PR STA (15:31)
--- NOTE | 2020-09-14 15:33 | Hospitalist Progress Note ---
Date of Service September 14, 2020 Assessment & Plan (1) Atrial fibrillation with RVR: Improving s/p full dig load yesterday/overnight. Remains on twice daily metoprolol succinate 100mg. TSH wnl. Cont eliquis 5mg BID. Start oral digoxin 0.125mg daily. Check dig level tomorrow am. echo with preserved EF and normal valve function. (2) Hypotension: suspect hypovolemia, pain meds, rapid a.fib, etc all contributing. will give additional 500cc of fluid today - PO liquid intake has not been robust. despite low-normal BPs her creatinine has remained stable. (3) Diabetes: Type 2 diabetes - was only taking Metformin at home. HbA1C 13%. pharmacy glycemic team adjusting basal-bolus insulins. appreciate their assistance. (4) Hypokalemia: replaced & resolved (5) Vitamin D deficiency: 25-OH Vitamin D level low at 14 start ergocalciferol 41101 units qweekly x 8 weeks (6) Right fibular fracture: s/p splinting. Orthopedics recommends rest, elevation, nonweightbearing to RLE, walker. Pain meds -- tylenol 1gm TID scheduled; norco prn; oxycodone prn. Despite this regimen she is doing poorly from pain standpoint. She told me today that most times it is 8/10 and only improves to 6/10 with above regimen. She refused PT/OT today because of pain. Needs long-acting pain meds. Nucynta ER 50mg x 1. If this is effective and she tolerates it will continue nucynta ER BID. (7) Vertebral compression fracture: L3 compression fracture. Replace low vit D. pain meds. lidoderm. k-pad. etc. consider orthotics consult for TLSO brace. (8) Knee effusion, right: Has lateral tibia plateau bone bruise, lateral meniscus tear, DJD, large knee effusion. s/p arthrocentesis 09/12/20 with 60cc bloody fluid obtained. likely due to trauma/fall. pain meds, ice, etc. (9) Hyponatremia: resolved (10) UTI (urinary tract infection): keflex 500mg BID x 7 days day #2 today lactinex daily (11) Constipation: senna/miralax for maintenance increase miralax to BID dosing fleets x 1 today (12) DVT prophylaxis: eliquis spoke with daughter Alix -- [phone] -- 09/14 full update given questions answered cont PT, OT Admission and Anticipated Discharge Date Admission Date: September 09, 2020 Subjective a fib rates much better - most are now 90s or slightly less; occasionally now >100 received last dose of IV digoxin early this am. patient was sleeping when I initially came to see her. she awoke easily. c/o back pain, right knee pain, and right ankle pain. also with mild stomach discomfort. she can't tell me when her last bowel movement was. staff report she had a "smear" with dulcolax suppository yesterday. eating ok but drinking only fair. c/o thirst during my visit. denies any dyspnea. denies chest pain. Review of Systems Constitutional: + fatigue and + weakness; no fever Respiratory: no cough and no dyspnea Cardiovascular: no chest pain Gastrointestinal: + bloating and + constipation; no nausea Musculoskeletal: as per Subjective / HPI and + joint pain Physical Exam Constitutional: well developed and well nourished; no altered mental status ENMT: Mouth: + dry oral mucous membranes Respiratory: normal respiratory effort, lungs clear to auscultation Cardiovascular: Rate/Rhythm: regular rate and + irregularly irregular Heart Sounds: normal S1 and normal S2; no murmur Vessels: posterior tibial pulses present and dorsalis pedis pulses present; no JVD Extremities: no edema Chest (Breasts): Additional Comments: no tenderness today to palpation over costal margins Gastrointestinal (Abdomen): Inspection/Auscultation: + abdomen distended and normal bowel sounds Percussion/Palpation: + abdomen tender (epigastric region ); no guarding and no hepatosplenomegaly Musculoskeletal: right knee - mild joint effusion present; tender over both joint lines; right distal leg/ankle in splint Psychiatric: Orientation: alert and oriented x 3 Results & Data Results & Data ([facility]) Vital Signs (Past 12 Hours) Vital Signs Temp Pulse Pulse Pulse Resp BP BP 09/14/20 11:13 36.6 C 84 17 92/60 L 09/14/20 08:16 96 H 115/77 09/14/20 07:11 36.9 C 119 H 17 93/60 L 09/14/20 07:00 119 H 09/14/20 05:43 127 H 09/14/20 04:03 36.7 C 93 H 23 109/79 Pulse Ox 09/14/20 11:13 94 09/14/20 08:16 09/14/20 07:11 95 09/14/20 07:00 09/14/20 05:43 09/14/20 04:03 92 Laboratory Results Laboratory Results - last 24 hr 09/13/20 09/13/20 09/14/20 16:17 20:26 00:07 Sodium Potassium Chloride Carbon Dioxide Anion Gap BUN Creatinine Est Cr Clr Drug Dosing Est GFR ( Amer) Est GFR (Non-Af Amer) BUN/Creatinine Ratio Glucose POC Glucose 121 H 87 160 H Calcium 09/14/20 09/14/20 09/14/20 05:46 07:11 11:08 Sodium 135 L Potassium 4.4 Chloride 102 Carbon Dioxide 25 Anion Gap 8.0 BUN 11 Creatinine 0.65 Est Cr Clr Drug Dosing 65.5 Est GFR ( Amer) 95.8 Est GFR (Non-Af Amer) 82.7 BUN/Creatinine Ratio 16.6 Glucose 223 H POC Glucose 214 H 223 H Calcium 8.7 PG Care Time/CCT Total # of Minutes Spent Total Time Spent with Patient: Total time spent is greater than 50% in coordination of care (as documented) at patient's floor/unit and/or counseling patient: Coding Level of Care Code 54177 Subseq Hosp Care Lvl 3 Diagnoses Atrial fibrillation with RVR I48.91 Hypotension I95.9 Diabetes E11.9 Diabetes mellitus complication status: without complication Diabetes mellitus shelter insulin use: without shelter use Diabetes mellitus type: type 2 Hypokalemia E87.6 Vitamin D deficiency E55.9 Right fibular fracture S82.401A Encounter type: initial encounter Fracture morphology: unspecified fracture morphology Fracture type: closed Vertebral compression fracture M48.50XA Knee effusion, right M25.461 Hyponatremia E87.1 UTI (urinary tract infection) N39.0 Constipation K59.00 DVT prophylaxis Z29.9 (1) Diabetes Diabetes mellitus complication status: without complication Diabetes mellitus pulp press tender insulin use: without pulp press tender use Diabetes mellitus type: type 2 Qualified Code(s): E11.9 - Type 2 diabetes mellitus without complications (2) Right fibular fracture Encounter type: initial encounter Fracture morphology: unspecified fracture morphology Fracture type: closed
[2020-09-14] MEDS ORDERED: SODIUM CHLORIDE 0.9% 500 ML IV SCH (15:45)
[2020-09-14] MEDS: DIGOXIN 0.125 MG TAB PO SCH (16:04)
[2020-09-15] MEDS ORDERED: INSULIN ASPART 100 UNITS/ML 3 ML PEN SC SCH
[2020-09-15 06:33] LABS: Hematocrit (blood only) 40.4 % (37-47); Hemoglobin 13.2 g/dL (12.0-16.0); Mean Corpuscular Hemoglobin 29.5 pg (25-34); Mean Corpuscular Hgb Conc 32.7 g/dL (32-36); Mean Corpuscular Volume 90.4 fL (80-100); Mean Platelet Volume 9.3 fL (7.4-10.4); Platelet Count 318 K/uL (130-400); RDW Coefficient of Variation 13.1 % (11.5-14.5); RDW Standard Deviation 43.3 fL (36.4-46.3); Red Blood Count 4.47 M/uL (4.2-5.4); White Blood Count 8.25 K/uL (4.8-10.8)
[2020-09-15 07:06] LABS: BUN Creatinine Ratio 19.6 (10-20); Calcium 8.8 mg/dl (8.5-10.1); Creatinine Clr Calc Pharmacy 71.8 ml/min; Est GFR (African American) 98.9; Est GFR (Non-African American) 85.4; Potassium 4.3 mmol/L (3.5-5.1)
[2020-09-15] MEDS: INSULIN ASPART 100 UNITS/ML 3 ML PEN SC SCH ×4 (08:50→20:35)
[2020-09-15] MEDS: INSULIN GLARGINE SOLOSTAR 100 UNITS/ML 3 ML PEN SC SCH (08:53)
[2020-09-15] MEDS: ACETAMINOPHEN 500 MG TAB PO SCH ×3 (08:54→20:34)
[2020-09-15] MEDS: SENNA 8.6 MG TAB PO SCH (08:54)
[2020-09-15] MEDS: LIDOCAINE 5% 1 PATCH TD SCH ×2 (08:54→08:56)
[2020-09-15] MEDS: POLYETHYLENE (MIRALAX) 17 GM PACK PO SCH ×2 (08:54→20:35)
[2020-09-15] MEDS: ADVANCED PROBIOTIC 1250 MG CAPSULE PO SCH (08:55)
[2020-09-15] MEDS: MAGNESIUM OXIDE 400 MG TAB PO SCH (08:55)
[2020-09-15] MEDS: APIXABAN 5 MG TABLET PO SCH ×2 (08:55→20:34)
[2020-09-15] MEDS: POTASSIUM CHLORIDE CRTAB 20 MEQ TABCR PO SCH (08:55)
[2020-09-15] MEDS: cephALEXin 500 MG CAP PO SCH ×2 (08:55→20:34)
[2020-09-15] MEDS ORDERED: INSULIN GLARGINE SOLOSTAR 100 UNITS/ML 3 ML PEN SC SCH (09:00)
[2020-09-15] MEDS: METOPROLOL SUCC 50MG EXT REL TAB PO SCH (10:19)
[2020-09-15] MEDS ORDERED: SODIUM CHLORIDE 0.9% 1000ML 250 ML IV ONE (10:32)
--- NOTE | 2020-09-15 10:36 | Orthopedic Progress Note ---
Date of Service September 15, 2020 Assessment & Plan (1) Closed fibular fracture: Continue to treat conservatively with immobilization. Continue PT/OT. Encourage therapy even if refusing to at least move upper extremities and left leg. Continue nonweightbearing right lower extremity. Use walker to assist with ambulation. She may also need assistance of another person. Elevation above her heart as needed for pain and swelling. Ice to right ankle as needed for pain and swelling. Pain control per primary service. Recommend follow-up with Dr Benavidez in 2wks as an outpatient for repeat right ankle xrays. (2) Vertebral compression fracture: RICE PT/OT. Pain control per primary service. Consider consult to spine. Encourage incentive spirometry. (3) Fall: (4) Knee effusion, right: Improved right knee effusion. No surgical intervention required at this time. Continue to encourage PT/OT. Even if patient refuses due to pain at least have her move B UE and Left leg (which are not painful). I also reviewed with patient exs in bed she can do. Right knee JHONATHAN wrap to right knee for effusion. Can be removed to change lidoderm patch and re-applied. Ice right knee as much as 20min every hour if patient tolerates. Continue pain medication per primary service. Continue PT/OT. Encourage right knee motion as tolerated. Previous xrays from ED of pelvis and right femur neg for fracture. Will discuss patients lack of progress with Dr Benavidez. Recommend follow-up with Dr Benavidez in 2wks upon discharge. Admission and Anticipated Discharge Date Admission Date: September 09, 2020 Subjective Patient in bed. Recalls who I am. Says she continues to have pain "behind her right knee" >right ankle>back. Says she sat at edge of bed one time with therapy. Not interested in doing that today. Admits she has been refusing PT/OT because "it hurts". She says sometimes just resting she has pain as well. Denies calf pain. Denies chest pain and SOB at rest. Physical Exam Physical Exam: In bed. Awake. Alert and coherent. Right leg at rest in external rotated position. Right knee in slight flexion. right ankle in plaster splint. Right knee with 1+ effusion. Tender to palpation diffusely more so to anterior knee vs posterior. Pain PROM. No groin pain but has thigh and knee pain with log rolling right hip. No pain with PROM of left knee. Able to do ankle pumps left side. L LE with SCD and negative homans. B LE intact to sensation to light touch and brisk capillary refill. Results & Data ([facility]) Vital Signs (Past 12 Hours) Vital Signs Temp Pulse Pulse Resp BP Pulse Ox 09/15/20 10:18 88/60 L 09/15/20 07:30 37.0 C 107 H 17 92/65 L 96 09/15/20 07:00 92 H 09/15/20 04:17 36.7 C 102 H 20 95/60 L 92 09/14/20 23:29 36.9 C 86 20 82/55 L 95 (1) Closed fibular fracture Encounter type: initial encounter Fibula location: lateral malleolus Fracture alignment: displaced Laterality: right Qualified Code(s): S82.61XA - Displaced fracture of lateral malleolus of right fibula, initial encounter for closed fracture (2) Fall Encounter type: initial encounter Qualified Code(s): W19.XXXA - Unspecified fall, initial encounter
[2020-09-15] MEDS: TAPENTADOL HCL ER 50 MG TABCR PO SCH ×2 (10:58→20:52)
--- NOTE | 2020-09-15 12:28 | Pharmacy Report ---
Pharmacy Glycemic Short Note 2 - Date of Service September 15, 2020 - Glycemic Short BSG Results (Last 24 hours): 09/14/20 09/14/20 09/15/20 16:20 20:03 00:21 Glucose POC Glucose 147 H 271 H 92 09/15/20 09/15/20 09/15/20 06:05 07:29 11:20 Glucose 114 H POC Glucose 118 H 300 H 09/15/20 11:35 Glucose POC Glucose 308 H* OUTPATIENT ANTIDIABETIC REGIMEN: * Metformin 1000 mg PO BID * Patient has not been taking Pioglitazone, Jardiance, or Glipizide secondary to cost per CDE * A1c = 13% (09/09/20) ASSESSMENT: 09/15: * Patient received total of 78 units of insulin yesterday, of which 28 were basal insulin. Currently titrating up AM Lantus and continuing with daily basal insulin due to refused dose 09/13 PM. * Plan to split insulin more 50/50% basal bolus. Will titrate Lantus to 35 units daily this AM, plan to loosen CF/CR with adjustment in basal * Lunch time BSG trending up, AM Lantus only given about ~2 hours after dosing / plan to tighten CF/CR slightly 09/14: * Patient received total of 70 units of insulin yesterday, of which 22 units were basal. Patient refusing evening Lantus last night. * Fasting BSG elevated at 223 mg/dL - will give 28 units this AM to make up for missed dose last evening, may add small scale for HS if still trending upward * Yesterday's BSGs trending down throughout the day will loosen CF/CR with lunch time check PLAN FOR INPATIENT GLYCEMIC CONTROL: * Hold outpatient oral diabetes medications * Basal insulin * Lantus 35 units daily * Bolus insulin * NovoLog per scale ACHS or Q6hrs while NPO * Goal Range: Low 110 mg/dL - High 140 mg/dL * Correction Factor: 20 mg/dL/unit * Nutritional / Prandial insulin per carb ratio of 1 unit per 7 grams CHO consumed PLAN FOR DISCHARGE: * HbA1c = 13% which is very uncontrolled. Goal HbA1c for this patient based on her age and comorbidities should be less than 8.0-8.5%. Per CDE, patient is refusing any insulin or SMBG upon discharge. She was previously prescribed Pioglitazone which she has stopped taking. Jardiance and Glipizide were added in May 2020 but patient has never taken secondary to cost of medications. She is open to oral agents upon discharge. * She is being discharged to a rehab facility so would recommend that she is continued on basal-bolus insulin at rehab facility. * Upon discharge from rehab facility, would recommend: * Continuing Metformin 1000 mg PO BIDM - Check Vitamin B12 & Folate level and if deficient then add Vitamin B12 1000 mg PO daily. * Start Glipizide XL 5 mg PO daily with breakfast. Titrate upwards as needed to max of 20 mg per day. * Start Pioglitazone 15 mg PO daily. Titrate upwards as needed to max of 45 mg per day.
[2020-09-15] MEDS ORDERED: METOPROLOL TARTRATE 25 MG TAB PO STA (15:19)
[2020-09-15] MEDS: DIGOXIN 0.125 MG TAB PO SCH (15:33)
--- NOTE | 2020-09-15 16:38 | XRay Report ---
XR ankle LT min 3V routine HISTORY: 80 years-old Female pain over distal tibia, s/p recent fall acute pain of the left ankle st atus post fall COMPARISON: None TECHNIQUE: 3 views of the left ankle FINDINGS: Demineralized appearance of the bones. Mild tibiotalar osteoarthritis. Moderate sized enthesophytes o f the calcaneus. Moderate circumferential soft tissue swelling of the ankle. No acute fracture, dislo cation or osteochondral defect identified. No large joint effusion. IMPRESSION: Soft tissue swelling without acute fracture or dislocation. ACT 112: Negative or not required by law. The above report was generated using voice recognition software. It may contain grammatical, syntax o r spelling errors. Electronically signed by: Km Herrera M.D. 09/15/2020 4:36 PM
--- NOTE | 2020-09-15 18:43 | CT Scan Report ---
CT chest diagnostic wo con CT DOSE: 266.44 mGy.cm CLINICAL HISTORY: 80 years-old Female with b/l rib pain, recent fall, eval fracture/etc. Acute bilat eral rib pain with recent fall. TECHNIQUE: Multiaxial CT images of the chest were performed without contrast. A dose lowering techni que was utilized adhering to the principles of ALARA. COMPARISON: Chest radiograph 09/13/2020, lumbar spine radiographs 09/09/2020, CT abdomen and pelvis 2011, cervical spine CT 01/01/2012. FINDINGS: Unremarkable thyroid. Mild cardiomegaly with moderate thoracic aortic calcifications. Ectas ia of the ascending thoracic aorta, 3.9 cm. There is no adenopathy. Small left and small to moderate right pleural effusions. Bibasilar consolidation. No pneumothorax or overt pulmonary edema. There are no suspicious pulmonary nodules or masses. Subcentimeter calcified granuloma of the left upper lobe. 3 mm low suspicion pulmonary nodule of the right middle lobe, image 149 series 4. Central airways ar e patent. Mild nonspecific wall thickening of the mid and distal esophagus. Marginal nodularity of the liver, s uggestive of cirrhosis. Unremarkable soft tissues. Degenerative changes of the spine and shoulders. D emineralized appearance of the bones. No definite acute rib fracture identified. Mild superior endpla te compression of less than 20% involves the T3 vertebral body with 40% anterior superior compression deformity at T11. Chronic appearing T12 compression deformity. IMPRESSION: 1. Small left with small to moderate right pleural effusions. Bibasilar consolidation suggests atelec tasis, with pneumonitis considered less likely. 2. No acute displaced rib fracture or pneumothorax. 3. Cardiomegaly. 4. Age-indeterminate likely chronic compression deformities at T3 and T11. 5. Marginal nodularity of the liver suggestive of cirrhosis. ACT 112: Negative or not required by law. Dictated: 09/15/2020 4:48 PM Transcribed: 09/15/2020 5:37 PM Jessica [id number] MARCOS_Cullen Electronically signed by: Km Herrera M.D. 09/15/2020 6:42 PM
--- NOTE | 2020-09-15 19:06 | Hospitalist Progress Note ---
Date of Service September 15, 2020 Assessment & Plan (1) Atrial fibrillation with RVR: Improving with dig 0.125mg and metoprolol succinate. However, BPs are low and thus metoprolol dose lowered to 75mg BID. Dig level 1.4 today. TSH wnl. Cont eliquis 5mg BID. echo with preserved EF and normal valve function. If rates remain high will re-consult cardiology for opinion re: additional meds for this. Not sure BPs could tolerate cardizem. (2) Hypotension: suspect hypovolemia, pain meds, rapid a.fib, etc all contributing. improved s/p fluids and lowering of metoprolol dose. cortisol wnl. (3) Diabetes: Type 2 diabetes - was only taking Metformin at home. HbA1C 13%. pharmacy glycemic team adjusting basal-bolus insulins. appreciate their assistance. has been quite labile. (4) Hypokalemia: replaced & resolved (5) Vitamin D deficiency: 25-OH Vitamin D level low at 14 start ergocalciferol 13079 units qweekly x 8 weeks (6) Right fibular fracture: s/p splinting. Orthopedics recommends rest, elevation, nonweightbearing to RLE, walker. Pain meds -- tylenol 1gm TID scheduled; norco prn; oxycodone prn; nucynta ER 50mg BID. Adjust meds as needed. (7) Vertebral compression fracture: L3 compression fracture. Replace low vit D. pain meds. lidoderm. k-pad. etc. consider orthotics consult for TLSO brace. (8) Knee effusion, right: Has lateral tibia plateau bone bruise, lateral meniscus tear, DJD, large knee effusion. s/p arthrocentesis 09/12/20 with 60cc bloody fluid obtained. likely due to trauma/fall. pain meds, ice, etc. compression recommended by ortho. (9) Hyponatremia: resolved (10) UTI (urinary tract infection): keflex 500mg BID x 7 days day #3 today lactinex daily (11) Constipation: senna/miralax for maintenance improved w/ fleets yesterday (12) Chest wall pain: check CT chest, r/o rib fractures and other pathology given the ongoing complaint continue incentive spirometry and pulm toilet continue lidoderm patches for discomfort (13) Left ankle pain: at minimum has contusion check x-rays, r/o fracture consider voltaren gel qid prn (14) DVT prophylaxis: stephanie spoke with daughter Alix -- [phone] -- 09/14 full update given questions answered cont PT, OT oob to chair tomorrow Admission and Anticipated Discharge Date Admission Date: September 09, 2020 Subjective patient laying in bed. per the patient and nursing staff she sat at the side of the bed very briefly - did not tolerate it due to pain in back, right leg, etc - asked to be put back to bed. did not sit in chair. is willing to get in chair tomorrow with use of lift. she is eating better. had large BM yesterday w/ enema and her abd felt better. still having chest discomfort w/ trying to take deep breaths. "I can't do it" [the incentive tirso]. main area of pain is right knee. minimal back pain today but it does hurt with moving. tele - a.fib rates low 100s at rest. patient tolerated first dose of nucynta ER yesterday. seems to have helped overall pain. Review of Systems Constitutional: + fatigue; no fever Respiratory: no cough and no dyspnea Cardiovascular: as per Subjective / HPI and + chest pain; no orthopnea Gastrointestinal: no abdominal pain and no nausea Physical Exam 2 Constitutional: well developed, well nourished and + frail appearing; no altered mental status ENMT: Mouth: + dry oral mucous membranes Respiratory: normal respiratory effort, lungs clear to auscultation Cardiovascular: Rate/Rhythm: + tachycardic and + irregularly irregular Heart Sounds: normal S1 and normal S2; no murmur Vessels: posterior tibial pulses present and dorsalis pedis pulses present; no JVD Extremities: no edema Chest (Breasts): Additional Comments: tender over lower costal margin, L>R Gastrointestinal (Abdomen): Inspection/Auscultation: + abdomen distended and normal bowel sounds Percussion/Palpation: + abdomen tender (epigastric region ); no guarding and no hepatosplenomegaly Musculoskeletal: right ankle/foot in splint; left ankle - tender over distal tibia and mild pain with passive flexion/extension of ankle. Psychiatric: Orientation: alert and oriented x 3 Affect: + anxious affect Results & Data Results & Data ([facility]) Vital Signs (Past 12 Hours) Vital Signs Temp Pulse Pulse Pulse Resp BP BP 09/15/20 15:33 112 H 09/15/20 15:20 37.2 C 84 18 101/68 09/15/20 14:00 114 H 09/15/20 11:22 36.7 C 100 H 17 99/57 L 09/15/20 10:34 102 H 14 97/63 L 09/15/20 10:18 88/60 L 09/15/20 07:30 37.0 C 107 H 17 92/65 L Pulse Ox 09/15/20 15:33 09/15/20 15:20 95 09/15/20 14:00 09/15/20 11:22 97 09/15/20 10:34 94 09/15/20 10:18 09/15/20 07:30 96 Laboratory Results Laboratory Results - last 24 hr 09/14/20 09/15/20 09/15/20 20:03 00:21 06:05 WBC RBC Hgb Hct MCV MCH MCHC RDW Std Deviation RDW Coeff of Jude Plt Count MPV Sodium 139 Potassium 4.3 Chloride 103 Carbon Dioxide 29 Anion Gap 6.0 BUN 12 Creatinine 0.59 L Est Cr Clr Drug Dosing 71.8 Est GFR ( Amer) 98.9 Est GFR (Non-Af Amer) 85.4 BUN/Creatinine Ratio 19.6 Glucose 114 H POC Glucose 271 H 92 Calcium 8.8 Random Cortisol Digoxin 09/15/20 09/15/20 09/15/20 06:05 06:05 07:29 WBC 8.25 RBC 4.47 Hgb 13.2 Hct 40.4 MCV 90.4 MCH 29.5 MCHC 32.7 RDW Std Deviation 43.3 RDW Coeff of Jude 13.1 Plt Count 318 MPV 9.3 Sodium Potassium Chloride Carbon Dioxide Anion Gap BUN Creatinine Est Cr Clr Drug Dosing Est GFR ( Amer) Est GFR (Non-Af Amer) BUN/Creatinine Ratio Glucose POC Glucose 118 H Calcium Random Cortisol Digoxin 1.4 09/15/20 09/15/20 09/15/20 10:44 11:20 11:35 WBC RBC Hgb Hct MCV MCH MCHC RDW Std Deviation RDW Coeff of Jude Plt Count MPV Sodium Potassium Chloride Carbon Dioxide Anion Gap BUN Creatinine Est Cr Clr Drug Dosing Est GFR ( Amer) Est GFR (Non-Af Amer) BUN/Creatinine Ratio Glucose POC Glucose 300 H 308 H* Calcium Random Cortisol 16.36 Digoxin 09/15/20 16:14 WBC RBC Hgb Hct MCV MCH MCHC RDW Std Deviation RDW Coeff of Jude Plt Count MPV Sodium Potassium Chloride Carbon Dioxide Anion Gap BUN Creatinine Est Cr Clr Drug Dosing Est GFR ( Amer) Est GFR (Non-Af Amer) BUN/Creatinine Ratio Glucose POC Glucose 237 H Calcium Random Cortisol Digoxin PG Care Time/CCT Total # of Minutes Spent Total Time Spent with Patient: Total time spent is greater than 50% in coordination of care (as documented) at patient's floor/unit and/or counseling patient: Coding Level of Care Code 98824 Subseq Hosp Care Lvl 3 Diagnoses Atrial fibrillation with RVR I48.91 Hypotension I95.9 Diabetes E11.9 Diabetes mellitus complication status: without complication Diabetes mellitus senior care insulin use: without intermodal dispatcher use Diabetes mellitus type: type 2 Hypokalemia E87.6 Vitamin D deficiency E55.9 Right fibular fracture S82.401A Encounter type: initial encounter Fracture morphology: unspecified fracture morphology Fracture type: closed Vertebral compression fracture M48.50XA Knee effusion, right M25.461 Hyponatremia E87.1 UTI (urinary tract infection) N39.0 Constipation K59.00 Chest wall pain R07.89 Left ankle pain M25.572 DVT prophylaxis Z29.9 (1) Diabetes Diabetes mellitus complication status: without complication Diabetes mellitus senior care insulin use: without intermodal dispatcher use Diabetes mellitus type: type 2 Qualified Code(s): E11.9 - Type 2 diabetes mellitus without complications (2) Right fibular fracture Encounter type: initial encounter Fracture morphology: unspecified fracture morphology Fracture type: closed
[2020-09-15] MEDS: METOPROLOL SUCC 25MG EXT REL TAB PO SCH (20:35)
[2020-09-16] MEDS ORDERED: INSULIN ASPART 100 UNITS/ML 3 ML PEN SC SCH
[2020-09-16] MEDS: POLYETHYLENE (MIRALAX) 17 GM PACK PO SCH ×2 (08:08→20:10)
[2020-09-16] MEDS: METOPROLOL SUCC 25MG EXT REL TAB PO SCH (08:08)
[2020-09-16] MEDS: LIDOCAINE 5% 1 PATCH TD SCH (08:08)
[2020-09-16] MEDS: APIXABAN 5 MG TABLET PO SCH ×2 (08:08→20:08)
[2020-09-16] MEDS: cephALEXin 500 MG CAP PO SCH ×2 (08:09→20:07)
[2020-09-16] MEDS: ACETAMINOPHEN 500 MG TAB PO SCH ×3 (08:09→20:07)
[2020-09-16] MEDS: SENNA 8.6 MG TAB PO SCH (08:09)
[2020-09-16] MEDS: ADVANCED PROBIOTIC 1250 MG CAPSULE PO SCH (08:09)
[2020-09-16] MEDS: POTASSIUM CHLORIDE CRTAB 20 MEQ TABCR PO SCH (08:10)
[2020-09-16] MEDS: INSULIN GLARGINE SOLOSTAR 100 UNITS/ML 3 ML PEN SC SCH (08:10)
[2020-09-16] MEDS: INSULIN ASPART 100 UNITS/ML 3 ML PEN SC SCH ×5 (08:11→20:41)
[2020-09-16] MEDS: MAGNESIUM OXIDE 400 MG TAB PO SCH (08:11)
[2020-09-16] MEDS: TAPENTADOL HCL ER 50 MG TABCR PO SCH ×2 (08:15→20:08)
--- NOTE | 2020-09-16 08:42 | Pharmacy Report ---
Pharmacy Glycemic Short Note 2 - Date of Service September 16, 2020 - Glycemic Short BSG Results (Last 24 hours): OUTPATIENT ANTIDIABETIC REGIMEN: * Metformin 1000 mg PO BID * Patient has not been taking Pioglitazone, Jardiance, or Glipizide secondary to cost per CDE * A1c = 13% (09/09/20) ASSESSMENT: 09/16: * Little received a total of 68 units of insulin yesterday * 35 units basal + 33 units bolus * BSGs were elevated yesterday [phone] mg/dL * Fasting BSG this AM is 148 mg/dL - acceptable * No change to basal insulin today * Postprandial BSGs were elevated throughout the day yesterday * Therefore, will tighten carb ratio today 09/15: * Patient received total of 78 units of insulin yesterday, of which 28 were basal insulin. Currently titrating up AM Lantus and continuing with daily basal insulin due to refused dose 09/13 PM. * Plan to split insulin more 50/50% basal bolus. Will titrate Lantus to 35 units daily this AM, plan to loosen CF/CR with adjustment in basal * Lunch time BSG trending up, AM Lantus only given about ~2 hours after dosing / plan to tighten CF/CR slightly 09/14: * Patient received total of 70 units of insulin yesterday, of which 22 units were basal. Patient refusing evening Lantus last night. * Fasting BSG elevated at 223 mg/dL - will give 28 units this AM to make up for missed dose last evening, may add small scale for HS if still trending upward * Yesterday's BSGs trending down throughout the day will loosen CF/CR with lunch time check PLAN FOR INPATIENT GLYCEMIC CONTROL: * Hold outpatient oral diabetes medications * Basal insulin - no changed * Lantus 35 units daily * Bolus insulin - tighten CR * NovoLog per scale ACHS or Q6hrs while NPO * Goal Range: Low 110 mg/dL - High 140 mg/dL * Correction Factor: 20 mg/dL/unit * Nutritional / Prandial insulin per carb ratio of 1 unit per 6 grams CHO consumed PLAN FOR DISCHARGE: * HbA1c = 13% which is very uncontrolled. Goal HbA1c for this patient based on her age and comorbidities should be less than 8.0-8.5%. Per CDE, patient is refusing any insulin or SMBG upon discharge. She was previously prescribed Pioglitazone which she has stopped taking. Jardiance and Glipizide were added in May 2020 but patient has never taken secondary to cost of medications. She is open to oral agents upon discharge. * She is being discharged to a rehab facility so would recommend that she is continued on basal-bolus insulin at rehab facility. * Upon discharge from rehab facility, would recommend: * Continuing Metformin 1000 mg PO BIDM - Check Vitamin B12 & Folate level and if deficient then add Vitamin B12 1000 mg PO daily. * Start Glipizide XL 5 mg PO daily with breakfast. Titrate upwards as needed to max of 20 mg per day. * Start Pioglitazone 15 mg PO daily. Titrate upwards as needed to max of 45 mg per day.
[2020-09-16] MEDS: oxyCODONE HCL IR 5 MG TAB (IMMEDIATE RELEASE) PO PRN (10:42)
[2020-09-16 10:48] LABS: Influenza A virus by PCR Negative (Neg); Influenza B virus by PCR Negative (Neg); RSV by PCR Negative (Neg); SARS CoV2 RNA(COVID-19) InHosp NEGATIVE (Negative)
--- NOTE | 2020-09-16 10:53 | Orthopedic Progress Note ---
Date of Service September 16, 2020 Assessment & Plan (1) Closed fibular fracture: Continue to treat conservatively with immobilization. Continue PT/OT. Encourage therapy even if refusing to at least move upper extremities and left leg. Continue nonweightbearing right lower extremity. Use walker to assist with ambulation. She may also need assistance of another person. Elevation above her heart as needed for pain and swelling. Ice to right ankle as needed for pain and swelling. Pain control per primary service. Repeat right ankle x-rays in splint. Recommend follow-up with Dr Benavidez in 2wks as an outpatient. Left ankle pain and swelling, likely sprain. Will obtain x-rays to rule out fracture. Ice 20 min on 40 min off. (2) Vertebral compression fracture: RICE PT/OT. Pain control per primary service. Consider consult to spine. Encourage incentive spirometry. (3) Fall: (4) Knee effusion, right: Bone bruise and hamstring strain. No surgical intervention required at this time. Continue to encourage PT/OT. Even if patient refuses due to pain at least have her move B UE and Left leg (which are not painful). Right knee JHONATHAN wrap to right knee for effusion. Can be removed to change lidoderm patch and re-applied. Ice right knee as much as 20min every hour if patient tolerates. Continue pain medication per primary service. Continue PT/OT. Encourage right knee motion as tolerated. Encouraged out of bed to chair, may need foot rest for RLE. Follow-up with Dr Benavidez in 2wks upon discharge. Admission and Anticipated Discharge Date Admission Date: September 09, 2020 Subjective Left leg and right knee pain Physical Exam Physical Exam: RLE: Neurovascularly unchanged. Splint in good repair. Lidoderm patches over knee. 1+ effusion. + TTP medial hamstring and diffusely about the proximal Tibia. LLE: 2+ DP pulse. Sensation to light touch intact. Wiggling toes. Able to flex knee actively and once bent able to actively extend the knee. Knee ROM 0-120 degrees. - effusion. No pain with gentle ROM of hip. + TTP distal fibula and ATFL. + Swelling lateral ankle. + TTP calf. - fore foot squeeze test. - calf squeeze test. - Anterior drawer. Results & Data ([facility]) Vital Signs (Past 12 Hours) Vital Signs Temp Pulse Pulse Resp BP BP Pulse Ox 09/16/20 07:22 37.5 C 108 H 17 108/58 L 94 09/16/20 04:21 37 C 98 H 18 107/66 91 09/15/20 23:27 36.7 C 99 H 19 97/66 L 96 (1) Closed fibular fracture Encounter type: initial encounter Fibula location: lateral malleolus Fracture alignment: displaced Laterality: right Qualified Code(s): S82.61XA - Displaced fracture of lateral malleolus of right fibula, initial encounter for closed fracture (2) Fall Encounter type: initial encounter Qualified Code(s): W19.XXXA - Unspecified fall, initial encounter
--- NOTE | 2020-09-16 10:56 | XRay Report ---
XR ankle LT min 3V routine HISTORY: 80 years-old Female c/o left ankle pain acute left-sided ankle pain COMPARISON: Left ankle radiographs 09/15/2020 TECHNIQUE: 3 views of the left ankle FINDINGS: Demineralized appearance of the bones. Mild tibiotalar osteoarthritis. Moderate sized enthesophytes o f the calcaneus. Mildly decreased circumferential soft tissue swelling of the ankle. No acute fractur e, dislocation or osteochondral defect identified. Limited exam secondary to positioning on the later al view. No large joint effusion. IMPRESSION: Slightly decreased soft tissue swelling. No acute fracture or dislocation. ACT 112: Negative or not required by law. The above report was generated using voice recognition software. It may contain grammatical, syntax o r spelling errors. Electronically signed by: Km Herrera M.D. 09/16/2020 10:55 AM
[2020-09-16] MEDS ORDERED: dilTIAZem HCL 30 MG TAB PO ONE (11:38)
--- NOTE | 2020-09-16 15:49 | XRay Report ---
XR ankle RT min 3V routine HISTORY: 80 years-old Female hx of right ankle fracture follow-up study in a patient with acute frac ture of the right ankle COMPARISON: Right ankle radiographs 09/10/2020 and 09/09/2020 TECHNIQUE: 3 views of the right ankle FINDINGS: Findings bony detail limited secondary to overlying casting material. Demineralized appearance of the bones. Obliquely oriented fracture of the distal fibular diaphysis is redemonstrated with unchanged mild lateral displacement of 2 mm. Mild circumferential soft tissue swelling. IMPRESSION: Unchanged alignment of the acute mildly displaced oblique fracture of the distal fibular diaphysis. ACT 112: Negative or not required by law. The above report was generated using voice recognition software. It may contain grammatical, syntax o r spelling errors. Electronically signed by: Km Herrera M.D. 09/16/2020 3:48 PM
--- NOTE | 2020-09-16 16:44 | Cardiology Progress Note ---
Date of Service September 16, 2020 Assessment & Plan (1) Atrial fibrillation with RVR: (2) Hypokalemia: (3) Diabetes: (4) Closed fibular fracture: (5) Vertebral compression fracture: Patient with persistent atrial fibrillation, metoprolol dose limited by relative hypotension. With digoxin level 1.4, would not further increase digoxin. She is not showing evidence of hypoperfusion and her ventricular rate is generally in the 90 to 110 bpm range, this is not unreasonable given her clinic al status but is slightly above the desired range. Could switch metoprolol to 50 mg every 8 hours to perhaps achieve better balance between blood pressure and heart rate control. Also, would only hold metoprolol for systolic blood pressure less than 90 mmHg (rather than 100 mmHg), since otherwise doses will be missed and her rate control will be suboptimal. Again, she appears well perfused, so mild hypotension is acceptable in order to gain adequate rate control. Admission and Anticipated Discharge Date Admission Date: September 09, 2020 Subjective Patient was comfortable lying flat in bed. Metoprolol dose recently reduced due to mild hypotension. She has some chest wall discomfort left lower sternal border which is reproducible, no anginal type symptoms. She denies any dyspnea at rest, subjective palpitations, presyncope, or syncope. Ventricular rate is still mildly elevated but stable (90-110 bpm range). Physical Exam Physical Exam: Elderly white female appears comfortable. Systolic blood pressure 93-107 mmHg over the past 24 hours. Telemetry showed ventricular rate 90-110 bpm range Skin: no ecchymoses or generalized lesions. HEENT: unremarkable. Neck: Jugular venous pulse just above the clavicle at 45 degrees, no carotid bruits. Lungs: clear and equal breath sounds. Cardiac: Irregular, tachycardic rhythm with 2/6 holosystolic murmur at the apex, no diastolic murmur or gallop. Abdomen: Mildly distended with diffuse tenderness but no guarding or rigidity. Extremities: Immobilized right lower extremity, good capillary refill, warm. Neurologic: normal affect, nonfocal. Results & Data ([facility]) Vital Signs (Past 12 Hours) Vital Signs Temp Pulse Resp BP Pulse Ox 09/16/20 15:17 97.7 F 97 H 18 93/67 L 94 09/16/20 11:32 97.7 F 106 H 22 93/59 L 95 09/16/20 07:22 99.5 F 108 H 17 108/58 L 94 Laboratory Results Creatinine 0.59. Digoxin level 1.4. PG Care Time/CCT Total # of Minutes Spent Total Time Spent with Patient: Total time spent is greater than 50% in coordination of care (as documented) at patient's floor/unit and/or counseling patient: Coding Level of Care Code 31870 Subseq Hosp Care Lvl 3 Diagnoses Atrial fibrillation with RVR I48.91 Hypokalemia E87.6 Diabetes E11.9 Diabetes mellitus type: type 2 Diabetes mellitus manager terminal insulin use: without residential use Diabetes mellitus complication status: without complication Closed fibular fracture S82.61XA Encounter type: initial encounter Fibula location: lateral malleolus Fracture alignment: displaced Laterality: right Vertebral compression fracture M48.50XA (1) Diabetes Diabetes mellitus type: type 2 Diabetes mellitus manager terminal insulin use: without residential use Diabetes mellitus complication status: without complication Qualified Code(s): E11.9 - Type 2 diabetes mellitus without complications (2) Closed fibular fracture Encounter type: initial encounter Fibula location: lateral malleolus Fracture alignment: displaced Laterality: right Qualified Code(s): S82.61XA - Displaced fracture of lateral malleolus of right fibula, initial encounter for closed fracture
[2020-09-16] MEDS: DIGOXIN 0.125 MG TAB PO SCH (17:06)
--- NOTE | 2020-09-16 19:28 | Hospitalist Progress Note ---
Date of Service September 16, 2020 Assessment & Plan (1) Atrial fibrillation with RVR: Had Improved w/ dig load, then dig 0.125mg and metoprolol succinate. However, rates now again consistently >100. we are also limited in medications due to low BP. seen by cardiology today - they suggested trying metoprolol and using TID. thus, will try metoprolol tartrate 50mg TID in lucho of BID metoprolol succinate. cont dig. dig level 1.4. TSH wnl. Cont eliquis 5mg BID. echo with preserved EF and normal valve function. appreciate cardiology input/assistance. (2) Hypotension: suspect hypovolemia, pain meds, rapid a.fib, etc all contributing. most improvement s/p fluids and lowering of metoprolol dose. cortisol wnl. despite low or low-normal BPs her creatinine has remained stable the entire stay. (3) Diabetes: Type 2 diabetes - was only taking Metformin at home. HbA1C 13%. pharmacy glycemic team adjusting basal-bolus insulins. appreciate their assistance. has been quite labile. (4) Right fibular fracture: s/p splinting. Orthopedics recommends rest, elevation, nonweightbearing to RLE, walker. Pain meds -- tylenol 1gm TID scheduled; norco prn; oxycodone prn; nucynta ER 50mg BID. Adjust meds as needed. (5) Vertebral compression fracture: L3 compression fracture. Replace low vit D. pain meds. lidoderm. k-pad. etc. consider orthotics consult for TLSO brace if pain becomes more severe as she starts to ambulate more. (6) Knee effusion, right: Has lateral tibia plateau bone bruise, lateral meniscus tear, DJD, large knee effusion. s/p arthrocentesis 09/12/20 with 60cc bloody fluid obtained. likely due to trauma/fall. pain meds, ice, etc. compression recommended by ortho. (7) Hyponatremia: resolved (8) UTI (urinary tract infection): keflex 500mg BID x 7 days day #4 today lactinex daily (9) Constipation: senna/miralax for maintenance improved w/ fleets earlier this week (10) Chest wall pain: checked CT chest - no rib fractures, no sternal fracture ?atelectasis vs pneumonitis in bases right sided effusion also present suspect chest wall contusion in setting of recent fall given ongoing chest symptoms and ?pneumonitis on CT elected to repeat a COVID test - this was negative, as was flu/RSV continue incentive spirometry and pulm toilet continue lidoderm patches for discomfort (11) Left ankle pain: likely sprain/contusion x-rays neg for fracture consider voltaren gel qid prn (12) Lab test negative for COVID-19 virus: x 2 this admission flu/RSV also negative (13) Hypokalemia: replaced & resolved (14) Vitamin D deficiency: 25-OH Vitamin D level low at 14 start ergocalciferol 59595 units qweekly x 8 weeks received a dose last weekend will give another dose tomorrow (15) DVT prophylaxis: stephanie spoke with daughter Alix -- [phone] -- 09/14 and 09/16 full update given questions answered cont PT, OT I am pleased by her progress in the last 24 hours! I think the nucynta ER BID has really helped her pain on global scale allowing better mobilization keep on tele due to a.fib issues Admission and Anticipated Discharge Date Admission Date: September 09, 2020 Subjective patient had a very good day today! got out of bed - without having to use Priya lift - and sat in chair much of the day. actively participated with therapy. eating well. she reports her pain in back, right leg, etc is much better than previous. no left ankle pain today. chest wall discomforts improved. abdominal discomforts improved. tele - a.fib rates still >100 most times. Review of Systems Constitutional: + weakness; no anorexia Respiratory: no cough and no dyspnea Cardiovascular: no chest pain Gastrointestinal: no abdominal pain, no nausea and no vomiting Physical Exam Constitutional: well developed, well nourished and + frail appearing (But looks much better today ); no altered mental status ENMT: Mouth: + dry oral mucous membranes Respiratory: normal respiratory effort, lungs clear to auscultation Cardiovascular: Rate/Rhythm: + tachycardic and + irregularly irregular Heart Sounds: normal S1 and normal S2; no murmur Vessels: posterior tibial pulses present and dorsalis pedis pulses present; no JVD Extremities: no edema Gastrointestinal (Abdomen): Inspection/Auscultation: + abdomen distended (Minimal today) and normal bowel sounds Percussion/Palpation: abdomen nontender, no guarding and no hepatosplenomegaly Musculoskeletal: right ankle/leg in splint; right knee with decreasing effusion Psychiatric: Orientation: alert and oriented x 3 Results & Data Results & Data ([facility]) Vital Signs (Past 12 Hours) Vital Signs Temp Pulse Pulse Resp BP Pulse Ox 09/16/20 17:06 86 09/16/20 15:17 36.5 C 97 H 18 93/67 L 94 09/16/20 11:32 36.5 C 106 H 22 93/59 L 95 Laboratory Results Laboratory Results - last 24 hr 09/15/20 09/16/20 09/16/20 20:21 00:07 07:20 POC Glucose 244 H 144 H 148 H COVID-19 Eval Order SARS-CoV-2 (PCR) Influenza Type A (PCR) Influenza Type B (PCR) RSV (RT-PCR) 09/16/20 09/16/20 09/16/20 09:30 09:30 11:18 POC Glucose 333 H* COVID-19 Eval Order [facility]FluRsv at [facility] SARS-CoV-2 (PCR) NEGATIVE Influenza Type A (PCR) Negative Influenza Type B (PCR) Negative RSV (RT-PCR) Negative 09/16/20 09/16/20 11:19 16:13 POC Glucose 336 H* 169 H COVID-19 Eval Order SARS-CoV-2 (PCR) Influenza Type A (PCR) Influenza Type B (PCR) RSV (RT-PCR) PG Care Time/CCT Total # of Minutes Spent Total Time Spent with Patient: Total time spent is greater than 50% in coordination of care (as documented) at patient's floor/unit and/or counseling patient: Coding Level of Care Code 35512 Subseq Hosp Care Lvl 3 Diagnoses Atrial fibrillation with RVR I48.91 Hypotension I95.9 Diabetes E11.9 Diabetes mellitus complication status: without complication Diabetes mellitus dean insulin use: without dean use Diabetes mellitus type: type 2 Right fibular fracture S82.401A Encounter type: initial encounter Fracture morphology: unspecified fracture morphology Fracture type: closed Vertebral compression fracture M48.50XA Knee effusion, right M25.461 Hyponatremia E87.1 UTI (urinary tract infection) N39.0 Constipation K59.00 Chest wall pain R07.89 Left ankle pain M25.572 Lab test negative for COVID-19 virus Z03.818 Hypokalemia E87.6 Vitamin D deficiency E55.9 DVT prophylaxis Z29.9 (1) Diabetes Diabetes mellitus complication status: without complication Diabetes mellitus shelter insulin use: without shelter use Diabetes mellitus type: type 2 Qualified Code(s): E11.9 - Type 2 diabetes mellitus without complications (2) Right fibular fracture Encounter type: initial encounter Fracture morphology: unspecified fracture morphology Fracture type: closed
[2020-09-16] MEDS: METOPROLOL TARTRATE 50 MG TAB PO SCH (20:40)
[2020-09-17 06:34] LABS: Hematocrit (blood only) 39.2 % (37-47); Hemoglobin 12.8 g/dL (12.0-16.0); Mean Corpuscular Hemoglobin 29.6 pg (25-34); Mean Corpuscular Hgb Conc 32.7 g/dL (32-36); Mean Corpuscular Volume 90.5 fL (80-100); Mean Platelet Volume 8.8 fL (7.4-10.4); Platelet Count 357 K/uL (130-400); RDW Coefficient of Variation 13.2 % (11.5-14.5); RDW Standard Deviation 43.5 fL (36.4-46.3); Red Blood Count 4.33 M/uL (4.2-5.4); White Blood Count 7.14 K/uL (4.8-10.8)
[2020-09-17 06:52] LABS: BUN Creatinine Ratio 22.9 (10-20); Creatinine Clr Calc Pharmacy 66.6 ml/min; Est GFR (African American) 96.3; Est GFR (Non-African American) 83.1; Potassium 4.1 mmol/L (3.5-5.1)
[2020-09-17] MEDS: METOPROLOL TARTRATE 50 MG TAB PO SCH ×3 (08:06→20:02)
[2020-09-17] MEDS: ACETAMINOPHEN 500 MG TAB PO SCH ×3 (08:06→20:07)
[2020-09-17] MEDS: MAGNESIUM OXIDE 400 MG TAB PO SCH (08:07)
[2020-09-17] MEDS: LIDOCAINE 5% 1 PATCH TD SCH (08:07)
[2020-09-17] MEDS: POLYETHYLENE (MIRALAX) 17 GM PACK PO SCH ×2 (08:07→20:05)
[2020-09-17] MEDS: APIXABAN 5 MG TABLET PO SCH ×2 (08:07→20:05)
[2020-09-17] MEDS: cephALEXin 500 MG CAP PO SCH ×2 (08:07→20:04)
[2020-09-17] MEDS: SENNA 8.6 MG TAB PO SCH (08:07)
[2020-09-17] MEDS: POTASSIUM CHLORIDE CRTAB 20 MEQ TABCR PO SCH (08:07)
[2020-09-17] MEDS: ADVANCED PROBIOTIC 1250 MG CAPSULE PO SCH (08:07)
[2020-09-17] MEDS: oxyCODONE HCL IR 5 MG TAB (IMMEDIATE RELEASE) PO PRN ×2 (08:12→20:03)
[2020-09-17] MEDS: INSULIN ASPART 100 UNITS/ML 3 ML PEN SC SCH ×4 (08:15→20:18)
[2020-09-17] MEDS: INSULIN GLARGINE SOLOSTAR 100 UNITS/ML 3 ML PEN SC SCH (08:15)
[2020-09-17] MEDS ORDERED: ERGOCALCIFEROL 50,000 UNITS 1250 MCG CAP PO ONE (08:15)
--- NOTE | 2020-09-17 09:21 | Pharmacy Report ---
Pharmacy Glycemic Short Note 2 - Date of Service September 17, 2020 - Glycemic Short BSG Results (Last 24 hours): OUTPATIENT ANTIDIABETIC REGIMEN: * Metformin 1000 mg PO BID * Patient has not been taking Pioglitazone, Jardiance, or Glipizide secondary to cost per CDE * A1c = 13% (09/09/20) ASSESSMENT: 09/17: * Patient received a total of 79 units of insulin yesterday * 35 units basal + 44 units bolus * BSGs were above goal: 154-112-310-215 mg/dL * Fasting BSG continued to trend up today to 159 mg/dL * Will increase basal by ~15% today * She continues to have significant hyperglycemia at lunchtime (last three days: 223-300-333 mg/dL) * Tightened her CR with breakfast only yesterday * Will further tighten CR with all meals today as well as CF 09/16: * Little received a total of 68 units of insulin yesterday * 35 units basal + 33 units bolus * BSGs were elevated yesterday [phone] mg/dL * Fasting BSG this AM is 148 mg/dL - acceptable * No change to basal insulin today * Postprandial BSGs were elevated throughout the day yesterday * Therefore, will tighten carb ratio today PLAN FOR INPATIENT GLYCEMIC CONTROL: * Hold outpatient oral diabetes medications * Basal insulin - increased 15% * Lantus 40 units SQ AM * Bolus insulin - tightened CF and CR * NovoLog per scale ACHS or Q6hrs while NPO * Goal Range: Low 110 mg/dL - High 140 mg/dL * Breakfast: Correction Factor: 15 mg/dL/unit; Nutritional / Prandial insulin per carb ratio of 1 unit per 4 grams CHO consumed * Lunch, Dinner, Bedtime: Correction Factor: 15 mg/dL/unit; Nutritional / Prandial insulin per carb ratio of 1 unit per 5 grams CHO consumed PLAN FOR DISCHARGE: * HbA1c = 13% which is very uncontrolled. Goal HbA1c for this patient based on her age and comorbidities should be less than 8.0-8.5%. Per CDE, patient is refusing any insulin or SMBG upon discharge. She was previously prescribed Pioglitazone which she has stopped taking. Jardiance and Glipizide were added in May 2020 but patient has never taken secondary to cost of medications. She is open to oral agents upon discharge. * She is being discharged to a rehab facility so would recommend that she is continued on basal-bolus insulin at rehab facility. * Upon discharge from rehab facility, would recommend: * Continuing Metformin 1000 mg PO BIDM - Check Vitamin B12 & Folate level and if deficient then add Vitamin B12 1000 mg PO daily. * Start Glipizide XL 5 mg PO daily with breakfast. Titrate upwards as needed to max of 20 mg per day. * Start Pioglitazone 15 mg PO daily. Titrate upwards as needed to max of 45 mg per day.
[2020-09-17] MEDS: TAPENTADOL HCL ER 50 MG TABCR PO SCH ×2 (09:28→20:15)
--- NOTE | 2020-09-17 09:31 | Orthopedic Progress Note ---
Date of Service September 17, 2020 Assessment & Plan (1) Closed fibular fracture: Continue to treat conservatively with immobilization. Continue PT/OT. Encourage therapy even if refusing to at least move upper extremities and left leg. Continue nonweightbearing right lower extremity. Use walker to assist with ambulation. She may also need assistance of another person. Elevation above her heart as needed for pain and swelling. Ice to right ankle as needed for pain and swelling. Repeat x-rays of the right ankle with the splint in place show no change from previous films. Pain control per primary service. Recommend follow-up with Dr Benavidez in 2wks as an outpatient. Left ankle pain and swelling, likely sprain. X-rays obtained of this ankle are negative for acute fracture Patient may be weightbearing as tolerated on the Ice 20 min on 40 min off. IDr. Benavidez, saw and examined and agree with my PA's above findings and plan of care we discussed. (2) Vertebral compression fracture: RICE PT/OT. Pain control per primary service. Consider consult to spine. Encourage incentive spirometry. IDr. Benavidez, saw and examined and agree with my PA's above findings and plan of care we discussed. (3) Fall: (4) Knee effusion, right: Bone bruise and hamstring strain. No surgical intervention required at this time. Continue to encourage PT/OT. Even if patient refuses due to pain at least have her move B UE and Left leg (which are not painful). Right knee JHONATHAN wrap to right knee for effusion. Can be removed to change lidoderm patch and re-applied. Ice right knee as much as 20min every hour if patient tolerates. Continue pain medication per primary service. Continue PT/OT. Encourage right knee motion as tolerated. Encouraged out of bed to chair, may need foot rest for RLE. Follow-up with Dr Benavidez in 2wks upon discharge. Dr. Reema Marte, saw and examined and agree with my PA's above findings and plan of care we discussed. Admission and Anticipated Discharge Date Admission Date: September 09, 2020 Subjective This 80-year-old female that we are following in regards to a right ankle fracture, right knee effusion, chest wall pain and lower back pain was seen this morning. She states that she is doing much better than she had been previously. She states that the splint on her right ankle is very comfortable and she denies any pain in her ankle at this point. She states that most of her pain is in her right knee and she feels that the few fluid has reaccumulated. She also states that her left ankle was slightly swollen and had it x-rayed yesterday and was advised that her x-rays were negative for any type of fracture. She states that her back pain is much better as well. She states that the left side of her rib cage still aches when she takes a deep breath, however she denies shortness of breath, fever, chills, sweats, lethargy but states that she is very weak in her lower extremities. She states that she was helped her bedside chair yesterday but it was too painful for her so she was transferred back into her bed. Patient has been unable to partake in physical or occupational therapy services. Review of Systems Review of Systems: All systems reviewed & are unremarkable except as noted in Subjective Physical Exam Physical Exam: Right ankle: Patient is currently in a coaptation posterior AO- splint. She is tender to palpation over the anterior surface of the ankle just proximal to the joint. She has appropriate mobility of her toes. She is neurovascularly intact. Peripheral pulses are palpable and 2+. Capillary fill slightly greater in 2 seconds. Patient is unable to perform a straight leg raise test with her right lower extremity. Right knee: Patient has moderate edema over the anterior surface of the knee with limited range of motion from 0 to 15 degrees passively. There is presence of Lidoderm patches over the anterior aspect of the knee. She experiences medial and lateral joint tenderness when knee is palpated in the flexed position. There is no varus or valgus laxity. Negative Sonia test. There is no erythema, ecchymosis, warmth or palpable deformity. 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 She also has a palpable popliteal cyst in the posterior fossa. Her calf is soft supple non tender to palpation. Quad strength is 2/5 Chest: Patient experiences tenderness to palpation over the seventh rib in the mid axillary line. There is no palpable step-off or deformity. There is no edema, erythema, ecchymosis, warmth or palpable deformity. Back: Patient experiences very minimal tenderness to palpation over the distal aspect of the thoracic spine and entire lumbar spine. There is no notable scoliotic curvature. There is no edema, erythema, ecchymosis, warmth or palpable deformity. Results & Data ([facility]) Vital Signs (Past 12 Hours) Vital Signs Temp Pulse Resp BP BP Pulse Ox 09/17/20 07:23 36.8 C 128 H 17 99/66 L 94 09/17/20 04:05 36.8 C 114 H 20 102/69 93 09/16/20 23:52 36.6 C 94 H 18 108/74 95 Laboratory Results 09/17/20 09/17/20 09/17/20 Range/Units 07:31 06:06 06:06 WBC 7.14 (4.8-10.8) K/uL RBC 4.33 (4.2-5.4) M/uL Hgb 12.8 (12.0-16.0) g/dL Hct 39.2 (37-47) % MCV 90.5 (80-100) fL MCH 29.6 (25-34) pg MCHC 32.7 (32-36) g/dL RDW Std Deviation 43.5 (36.4-46.3) fL RDW Coeff of Jude 13.2 (11.5-14.5) % Plt Count 357 (130-400) K/uL MPV 8.8 (7.4-10.4) fL Sodium 139 (136-145) mmol/L Potassium 4.1 (3.5-5.1) mmol/L Chloride 103 (98-107) mmol/L Carbon Dioxide 30 (21-32) mmol/L Anion Gap 7.0 (3-11) BUN 15 (7-18) mg/dl Creatinine 0.64 (0.6-1.2) mg/dl Est Cr Clr Drug Dosing 66.6 ml/min Est GFR ( Amer) 96.3 Est GFR (Non-Af Amer) 83.1 BUN/Creatinine Ratio 22.9 H (10-20) Glucose 131 H (70-99) mg/dl POC Glucose 159 H (70-99) mg/dl Calcium 9.0 (8.5-10.1) mg/dl COVID-19 Eval Order SARS-CoV-2 (PCR) (Negative) Influenza Type A (PCR) (Neg) Influenza Type B (PCR) (Neg) RSV (RT-PCR) (Neg) 09/16/20 09/16/20 09/16/20 Range/Units 20:17 16:13 11:19 WBC (4.8-10.8) K/uL RBC (4.2-5.4) M/uL Hgb (12.0-16.0) g/dL Hct (37-47) % MCV (80-100) fL MCH (25-34) pg MCHC (32-36) g/dL RDW Std Deviation (36.4-46.3) fL RDW Coeff of Jude (11.5-14.5) % Plt Count (130-400) K/uL MPV (7.4-10.4) fL Sodium (136-145) mmol/L Potassium (3.5-5.1) mmol/L Chloride (98-107) mmol/L Carbon Dioxide (21-32) mmol/L Anion Gap (3-11) BUN (7-18) mg/dl Creatinine (0.6-1.2) mg/dl Est Cr Clr Drug Dosing ml/min Est GFR ( Amer) Est GFR (Non-Af Amer) BUN/Creatinine Ratio (10-20) Glucose (70-99) mg/dl POC Glucose 215 H 169 H 336 H* (70-99) mg/dl Calcium (8.5-10.1) mg/dl COVID-19 Eval Order SARS-CoV-2 (PCR) (Negative) Influenza Type A (PCR) (Neg) Influenza Type B (PCR) (Neg) RSV (RT-PCR) (Neg) 09/16/20 09/16/20 09/16/20 Range/Units 11:18 09:30 09:30 WBC (4.8-10.8) K/uL RBC (4.2-5.4) M/uL Hgb (12.0-16.0) g/dL Hct (37-47) % MCV (80-100) fL MCH (25-34) pg MCHC (32-36) g/dL RDW Std Deviation (36.4-46.3) fL RDW Coeff of Jude (11.5-14.5) % Plt Count (130-400) K/uL MPV (7.4-10.4) fL Sodium (136-145) mmol/L Potassium (3.5-5.1) mmol/L Chloride (98-107) mmol/L Carbon Dioxide (21-32) mmol/L Anion Gap (3-11) BUN (7-18) mg/dl Creatinine (0.6-1.2) mg/dl Est Cr Clr Drug Dosing ml/min Est GFR ( Amer) Est GFR (Non-Af Amer) BUN/Creatinine Ratio (10-20) Glucose (70-99) mg/dl POC Glucose 333 H* (70-99) mg/dl Calcium (8.5-10.1) mg/dl COVID-19 Eval Order CovFluRsv at [facility] SARS-CoV-2 (PCR) NEGATIVE (Negative) Influenza Type A (PCR) Negative (Neg) Influenza Type B (PCR) Negative (Neg) RSV (RT-PCR) Negative (Neg) Diagnostic Findings Reviewed radiagraphs 3 views of both ankles. No fracture or dislocation left ankle. Right ankle distal fibula fracture min displaced, unchanged acceptable alignment, in plaster. (1) Closed fibular fracture Encounter type: initial encounter Fibula location: lateral malleolus Fracture alignment: displaced Laterality: right Qualified Code(s): S82.61XA - Displaced fracture of lateral malleolus of right fibula, initial encounter for closed fracture (2) Fall Encounter type: initial encounter Qualified Code(s): W19.XXXA - Unspecified fall, initial encounter
--- NOTE | 2020-09-17 13:06 | Hospitalist Progress Note ---
Date of Service September 17, 2020 Assessment & Plan (1) Atrial fibrillation with RVR: Initially with improvement with digoxin loading and then digoxin with metoprolol succinate Patient continues to have rate in the 1 teens to 120 Patient is hypotensive with a systolic pressure of 90 Will start amiodarone for rhythm control without loading and reduce metoprolol back to 50 mg twice daily. After rate is below 100, consider metoprolol 50 mg twice daily and amiodarone 200 mg once daily Cardiology consulted and following -appreciate Dr. Brady's input (2) Hypotension: We will start amiodarone for rhythm control Hopefully once we have rate control cardiac output will improve patient's hypotension Continue to monitor on telemetry (3) Diabetes: Hemoglobin A1c 13% Only taking Metformin at home Glycemic control consult placed Glucose 131 Continue Lantus for basal insulin Continue sliding scale insulin (4) Closed fibular fracture: Splint in place and intact Continue rest and elevation Nonweightbearing to right lower extremity Continue with use of walker Physical therapy working with patient daily Patient will need inpatient rehab (5) Vertebral compression fracture: Back pain generally controlled today with heating pad and Lidoderm patches Imaging reveals L3 compression fracture Continue physical therapy as tolerated We will need inpatient rehab May require TLSO brace -continue to follow pain versus progress (6) Knee effusion, right: Status post arthrocentesis 09/12/2020 Secondary to right lateral tibial plateau bruise Orthopedics consulted and following Continue pain meds, ice, elevation, compression dressings/NEISHA hose (7) UTI (urinary tract infection): Today is day #5 of IV antibiotics with Keflex 500 mg twice daily * Continue for 7 days Continue Lactinex (8) Constipation: No complaints from patient today Results with fleets enema Continue bowel regimen (9) Chest wall pain: No reproducible pain with palpation at the time of my examination Continue Lidoderm patches and oral pain medication as tolerated CT chest 09/15/2020 with small right-sided pleural effusion. No evidence of consolidation or infiltrate. No evidence of rib fractures Check repeat chest x-ray in the morning to evaluate effusion Covid negative x2 (10) Left ankle pain: Imaging negative for fracture Most likely sprain from fall Continue supportive care Ambulate as tolerated as patient is nonweightbearing on right secondary to tibial fracture Continue with physical therapy (11) Vitamin D deficiency: 25-OH Vitamin D level low at 14 Continue ergocalciferol 30038 units qweekly x 8 weeks Last dose 09/17/2020 (12) DVT prophylaxis: Patient anticoagulated with Eliquis Admission and Anticipated Discharge Date Admission Date: September 09, 2020 Subjective Attending: Dr. Caro Patient seen at bedside in wheelchair. She states that pain is generally controlled with her fibular fracture. She has no fever, chills, sweats, rigors. She is currently rate controlled and denies any awareness of tachycardia arrhythmias. She is aware that she will need some rehab and is amenable to this. She has no acute complaints. Review of Systems Review of Systems: All systems reviewed & are unremarkable except as noted in Subjective Physical Exam Physical Exam: GENERAL : No acute distress EYES: No icterus, gaze conjugate NOSE: No evidence of epistaxis MOUTH: No lesions or candidiasis NECK: Supple LUNGS: CTA B/L, no wheezes, rales or rhonchi HEART: Irregular, irregular, rate controlled in the 70s ABDOMEN: Soft, NT, ND, BS Present EXTREMITIES: No LE edema or pain, pedal pulses intact to the left foot. Unable to palpate pedal pulses in the right foot secondary to casting. She does have capillary refill less than 2 seconds to all 5 digits of the left foot. NEURO: A&OX3 Results & Data Results & Data ([facility]) Vital Signs (Past 12 Hours) Vital Signs Temp Pulse Pulse Resp BP BP Pulse Ox 09/17/20 11:46 36.5 C 68 18 95/64 L 96 09/17/20 07:23 36.8 C 128 H 17 99/66 L 94 09/17/20 04:05 36.8 C 114 H 20 102/69 93 Laboratory Results 09/17/20 06:06 09/17/20 06:06 PG Care Time/CCT Total # of Minutes Spent Total Time Spent with Patient: Total time spent is greater than 50% in coordination of care (as documented) at patient's floor/unit and/or counseling patient: 30 minutes Coding Level of Care Code 60610 Subseq Hosp Care Lvl 2 Diagnoses Atrial fibrillation with RVR I48.91 Hypotension I95.9 Diabetes E11.9 Diabetes mellitus type: type 2 Diabetes mellitus fdc insulin use: without fdc use Diabetes mellitus complication status: without complication Closed fibular fracture S82.61XA Encounter type: initial encounter Fibula location: lateral malleolus Fracture alignment: displaced Laterality: right Vertebral compression fracture M48.50XA Knee effusion, right M25.461 UTI (urinary tract infection) N39.0 Constipation K59.00 Chest wall pain R07.89 Left ankle pain M25.572 Vitamin D deficiency E55.9 DVT prophylaxis Z29.9 Time Spent (min) 30 (1) Diabetes Diabetes mellitus type: type 2 Diabetes mellitus fdc insulin use: without fdc use Diabetes mellitus complication status: without co mplication Qualified Code(s): E11.9 - Type 2 diabetes mellitus without complications (2) Closed fibular fracture Encounter type: initial encounter Fibula location: lateral malleolus Fracture alignment: displaced Laterality: right Qualified Code(s): S82.61XA - Displaced fracture of lateral malleolus of right fibula, initial encounter for closed fracture
[2020-09-17] MEDS: DIGOXIN 0.125 MG TAB PO SCH (17:02)
--- NOTE | 2020-09-17 18:27 | Cardiology Progress Note ---
Date of Service September 17, 2020 Assessment & Plan (1) Atrial fibrillation with RVR: (2) Hypotension: Although she looks reasonably well and has no major complaints, she continues to have mild hypotension with suboptimally controlled ventricular response to atrial fibrillation. No evidence of major hypoperfusion. At this point, additional digoxin (level 1.4) would have a narrow therapeutic range in the context of renal dysfunction, diltiazem would likely worsen her hypotension, and escalating beta-blockers has not resulted in optimization of BP/heart rate. Since she has a normal CBC, normal hepatic function, and normal thyroid studies, a low dose of amiodarone (without loading) likely would offer additional rate control without high risk of metabolic side effects. Recommend reducing metoprolol back to 50 mg twice daily and adding amiodarone 200 mg twice daily (which could be quickly titrated down to 200 mg daily once her ventricular rate is below 100 bpm). Will continue to follow. Admission and Anticipated Discharge Date Admission Date: September 09, 2020 Subjective Uneventful night. Patient notes that her chest wall discomfort is diminishing. Right leg fracture pain diminished as well. She denies any anginal type chest pain, dyspnea at rest, subjective palpitations, lightheadedness, presyncope, or syncope. Rhythm is atrial fibrillation with ventricular rate 90-120 bpm, currently around 100 bpm. Overnight, she was up to 130 bpm briefly. Physical Exam Physical Exam: Elderly white female appears comfortable. Systolic blood pressure 90-108 mmHg over the past 24 hours. Telemetry showed ventricular rate mostly 90-120 bpm range Skin: no ecchymoses or generalized lesions. HEENT: unremarkable. Neck: Jugular venous pulse just above the clavicle at 45 degrees, no carotid bruits. Lungs: clear and equal breath sounds. Cardiac: Irregular, tachycardic rhythm with 2/6 holosystolic murmur at the apex, no diastolic murmur or gallop. Abdomen: Mildly distended with diffuse tenderness but no guarding or rigidity. Extremities:Bandaged right lower extremity, good capillary refill (2 seconds), warm. Neurologic: normal affect and conversation, nonfocal. Results & Data ([facility]) Vital Signs (Past 12 Hours) Vital Signs Temp Pulse Pulse Pulse Resp BP Pulse Ox 09/17/20 17:02 119 H 09/17/20 15:42 98.1 F 91 H 18 90/58 L 95 09/17/20 11:46 97.7 F 68 18 95/64 L 96 09/17/20 07:23 98.2 F 128 H 17 99/66 L 94 Laboratory Results Normal electrolytes, BUN 15, creatinine 0.64. PG Care Time/CCT Total # of Minutes Spent Total Time Spent with Patient: Total time spent is greater than 50% in coordination of care (as documented) at patient's floor/unit and/or counseling patient: Coding Level of Care Code 92753 Subseq Hosp Care Lvl 3 Diagnoses Atrial fibrillation with RVR I48.91 Hypotension I95.9
[2020-09-17] MEDS: AMIODARONE 200 MG TAB PO SCH (20:03)
[2020-09-17] MEDS ORDERED: METOPROLOL TARTRATE 25 MG TAB PO ONE (23:16)
--- NOTE | 2020-09-18 08:04 | XRay Report ---
XR chest 1V portable HISTORY: Evaluate right pleural effusion COMPARISON: Chest 09/13/2020. FINDINGS: There are low lung volumes. Mild elevation the right hemidiaphragm, unchanged. The heart re angy mildly enlarged. There is mild interstitial/vascular thickening consistent with congestive craft ge. There are trace bilateral pleural effusions and a few bibasilar linear densities suggesting subse gmental atelectasis. IMPRESSION: 1. Cardiomegaly with mild central pulmonary vascular congestion. 2. Trace bilateral pleural effusions and bibasilar densities persist. This favors atelectasis. ACT 112: Negative or not required by law. Electronically signed by: Phu Presley M.D. 09/18/2020 8:02 AM
[2020-09-18] MEDS: SENNA 8.6 MG TAB PO SCH (08:38)
[2020-09-18] MEDS: POLYETHYLENE (MIRALAX) 17 GM PACK PO SCH ×2 (08:38→21:12)
[2020-09-18] MEDS: ACETAMINOPHEN 500 MG TAB PO SCH ×3 (08:39→21:13)
[2020-09-18] MEDS: LIDOCAINE 5% 1 PATCH TD SCH (08:40)
[2020-09-18] MEDS: POTASSIUM CHLORIDE CRTAB 20 MEQ TABCR PO SCH (08:41)
[2020-09-18] MEDS: APIXABAN 5 MG TABLET PO SCH ×2 (08:42→21:11)
[2020-09-18] MEDS: ADVANCED PROBIOTIC 1250 MG CAPSULE PO SCH (08:42)
[2020-09-18] MEDS: MAGNESIUM OXIDE 400 MG TAB PO SCH (08:42)
[2020-09-18] MEDS: AMIODARONE 200 MG TAB PO SCH ×2 (08:43→21:11)
[2020-09-18] MEDS: METOPROLOL TARTRATE 50 MG TAB PO SCH ×2 (08:44→21:12)
[2020-09-18] MEDS: INSULIN ASPART 100 UNITS/ML 3 ML PEN SC SCH ×4 (09:00→21:14)
[2020-09-18] MEDS: INSULIN GLARGINE SOLOSTAR 100 UNITS/ML 3 ML PEN SC SCH (09:04)
[2020-09-18] MEDS: TAPENTADOL HCL ER 50 MG TABCR PO SCH ×2 (09:20→21:20)
[2020-09-18] MEDS ORDERED: DIGOXIN 250 MCG in SYRINGE 9 ML IV STA (11:03)
[2020-09-18] MEDS ORDERED: SODIUM CHLORIDE 0.9% 1000ML 250 ML IV ONE (12:03)
--- NOTE | 2020-09-18 13:26 | Hospitalist Progress Note ---
Date of Service September 18, 2020 Assessment & Plan (1) Atrial fibrillation with RVR: Additional digoxin today to achieve therapeutic level. Will continue to monitor level daily. Today it is subtherapeutic. Atrial fibrillation is somewhat fast. She remains on amiodarone and metoprolol. Cardiology consultation appreciated. TSH wnl. Cont eliquis 5mg BID. Echo with preserved EF and normal valve function. (2) Hypotension: suspect hypovolemia, pain meds, rapid a.fib, etc all contributing. most improvement s/p fluids and lowering of metoprolol dose. cortisol wnl. (3) Diabetes: Type 2 diabetes - was only taking Metformin at home. HbA1C 13%. pharmacy glycemic team adjusting basal-bolus insulins. Improved. (4) Right fibular fracture: No surgical intervention necessary per orthopedic surgery. Nonweightbearing status. Supportive care. Pain control measures. (5) Vertebral compression fracture: L3 compression fracture. Replace low vit D. Pain control measures. Consider orthotics consult for TLSO brace if pain becomes more severe as she starts to ambulate more. (6) Knee effusion, right: Has lateral tibia plateau bone bruise, lateral meniscus tear, DJD, large knee effusion. s/p arthrocentesis 2 with 60cc bloody fluid obtained. likely due to trauma/fall. pain meds, ice, etc. compression recommended by ortho. (7) Hyponatremia: resolved (8) UTI (urinary tract infection): keflex 500mg BID x 7 days day #5 today (9) Constipation: senna/miralax for maintenance improved w/ fleets earlier this week (10) Chest wall pain: checked CT chest - no rib fractures, no sternal fracture ?atelectasis vs pneumonitis in bases right sided effusion also present suspect chest wall contusion in setting of recent fall continue incentive spirometry and pulm toilet continue lidoderm patches for discomfort (11) Left ankle pain: likely sprain/contusion x-rays neg for fracture consider voltaren gel qid prn (12) Lab test negative for COVID-19 virus: x 2 this admission flu/RSV also negative (13) Hypokalemia: replaced & resolved (14) Vitamin D deficiency: 25-OH Vitamin D level low at 14 started ergocalciferol 91389 units weekly x 8 weeks (15) DVT prophylaxis: eliquis Disposition: Possible discharge to [facility] tomorrow, September 19 Admission and Anticipated Discharge Date Admission Date: September 09, 2020 Subjective Alert and pleasant. Atrial fibrillation remains somewhat rapid and blood pressure is on the low side. She is now on amiodarone and metoprolol has been down titrated. She will receive additional digoxin today to achieve therapeutic levels. Possible discharge to [facility] tomorrow if she is stable. She is nonweightbearing status on the right lower extremity due to the recent right fibular fracture. Glucose is 103 this morning. She remains on oral Keflex for the UTI. Review of Systems Review of Systems: All systems reviewed & are unremarkable except as noted in Subjective Physical Exam Physical Exam: General-alert and oriented x3, no fevers, no chills HEENT-head atraumatic and normocephalic, TMs intact bilaterally, pupils equal and reactive to light, extraocular muscles intact Neck-no lymphadenopathy or thyromegaly, trachea midline Chest-clear to auscultation percussion. No rales wheezing or rhonchi Cardiac-irregular rhythm with mild tachycardia. Normal S1 and S2 Abdomen-normal bowel sounds, nontender, no hepatosplenomegaly Extremities-no cyanosis, clubbing, or edema Neuro-cranial nerves II through XII intact, motor and sensory function within normal limits, strength symmetrical , no focal deficits Psych-normal affect, normal mood Results & Data Results & Data ([facility]) Vital Signs (Past 12 Hours) Vital Signs Temp Pulse Pulse Pulse Resp BP BP 09/18/20 12:14 103 H 09/18/20 12:05 108 H 92/46 L 09/18/20 11:35 80/42 L 09/18/20 07:36 37 C 115 H 18 94/64 L 09/18/20 03:39 37.5 C 124 H 18 92/57 L Pulse Ox 09/18/20 12:14 09/18/20 12:05 09/18/20 11:35 09/18/20 07:36 91 09/18/20 03:39 91 Laboratory Results 09/17/20 06:06 09/17/20 06:06 PG Care Time/CCT Total # of Minutes Spent Total Time Spent with Patient: Total time spent is greater than 50% in coordination of care (as documented) at patient's floor/unit and/or counseling patient: Coding Level of Care Code 42638 Subseq Hosp Care Lvl 3 Diagnoses Atrial fibrillation with RVR I48.91 Hypotension I95.9 Diabetes E11.9 Diabetes mellitus type: type 2 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 use Diabetes mellitus complication status: without complication Right fibular fracture S82.401A Encounter type: initial encounter Fracture type: closed Fracture morphology: unspecified fracture morphology Vertebral compression fracture M48.50XA Knee effusion, right M25.461 Hyponatremia E87.1 UTI (urinary tract infection) N39.0 Constipation K59.00 Chest wall pain R07.89 Left ankle pain M25.572 Lab test negative for COVID-19 virus Z03.818 Hypokalemia E87.6 Vitamin D deficiency E55.9 DVT prophylaxis Z29.9 (1) Diabetes Diabetes mellitus type: type 2 Diabetes mellitus mcfp insulin use: witho ut mcfp use Diabetes mellitus complication status: without complication Qualified Code(s): E11.9 - Type 2 diabetes mellitus without complications (2) Right fibular fracture Encounter type: initial encounter Fracture type: closed Fracture morphology: unspecified fracture morphology
--- NOTE | 2020-09-18 14:31 | Orthopedic Progress Note ---
Date of Service September 18, 2020 Assessment & Plan (1) Closed fibular fracture: Continue to treat conservatively with immobilization. Continue PT/OT. Encourage therapy even if refusing to at least move upper extremities and left leg. Continue nonweightbearing right lower extremity. Use walker to assist with ambulation. She may also need assistance of another person. Elevation needed for pain and swelling. Ice to right ankle as needed for pain and swelling. Pain control per primary service. Recommend follow-up with Dr Benavidez in 2wks as an outpatient. Will sign off for now. If here next week will get repeat xrays of right ankle. Possible D/C tomorrow to SNF per medicine note. Left ankle sprain. X-rays obtained of this ankle are negative for acute fracture Patient may be weightbearing as tolerated on the Ice and elevate as needed. (2) Vertebral compression fracture: RICE PT/OT. Pain control per primary service. Consider consult to spine. Encourage incentive spirometry. (3) Fall: (4) Knee effusion, right: Bone bruise and hamstring strain. No surgical intervention required at this time. Continue to encourage PT/OT. Even if patient refuses due to pain at least have her move B UE and Left leg (which are not painful). Right knee JHONATHAN wrap to right knee for effusion if needed. Can be removed to change lidoderm patch and re-applied. Ice right knee as much as 20min every hour if patient tolerates. Continue pain medication per primary service. Continue PT/OT. Encourage right knee motion as tolerated. Encouraged out of bed to chair, may need foot rest for RLE. Follow-up with Dr Benavidez in 2wks upon discharge. Admission and Anticipated Discharge Date Admission Date: September 09, 2020 Subjective Alert and pleasant, resting in bed. Says she sat in w/c yesterday but hasnt gotten up yet today. Says she is feeling some better with #1 area of pain being her right knee. Per medicine note, possible discharge to [facility] tomorrow if she is medically stable. Physical Exam Physical Exam: In bed. Awake. Alert and coherent. Right leg at rest in external rotated position. Right knee in slight flexion. right ankle in plaster splint. Right knee with 1+ effusion and lidoderm patches. Improved tenderness to palpation diffusely to right knee. Pain PROM -15 to 45degrees. No pain with left ankle motion today. L LE with negative homans. B LE intact to sensation to light touch and brisk capillary refill. Results & Data ([facility]) Vital Signs (Past 12 Hours) Vital Signs Temp Pulse Pulse Pulse Resp BP BP 09/18/20 12:14 103 H 09/18/20 12:05 108 H 92/46 L 09/18/20 11:35 80/42 L 09/18/20 07:36 37 C 115 H 18 94/64 L 09/18/20 03:39 37.5 C 124 H 18 92/57 L Pulse Ox 09/18/20 12:14 09/18/20 12:05 09/18/20 11:35 09/18/20 07:36 91 09/18/20 03:39 91 (1) Closed fibular fracture Encounter type: initial encounter Fibula location: lateral malleolus Fracture alignment: displaced Laterality: right Qualified Code(s): S82.61XA - Displaced fracture of lateral malleolus of right fibula, initial encounter for closed fracture (2) Fall Encounter type: initial encounter Qualified Code(s): W19.XXXA - Unspecified fall, initial encounter
--- NOTE | 2020-09-18 14:47 | Cardiology Progress Note ---
Date of Service September 18, 2020 Assessment & Plan (1) Atrial fibrillation with RVR: (2) Hypotension: Persistent mild hypotension but no evidence of significant hypoperfusion. Ventricular rate response to atrial fibrillation seems finally to be appropriate since initiating amiodarone. No need to fully load, would simply reduce amiodarone to 200 mg daily upon discharge. Continue apixaban indefinitely for thromboembolic prophylaxis. Check follow-up digoxin level at some point, since this will increase on amiodarone. May be able to discontinue digoxin in the future if rate remains well controlled. Similarly, could reduce beta-kathy as able as long as her ventricular rate is around 100 bpm or less. Will sign off, please contact Dr. Esposito tomorrow if further clinical questions remain. Thank you. Admission and Anticipated Discharge Date Admission Date: September 09, 2020 Subjective Feels OK, no complaints. She denies any anginal type chest pain, dyspnea at rest, subjective palpitations, lightheadedness, presyncope, or syncope. Rhythm is atrial fibrillation with ventricular rate 100-110 overnight, dropped to 90 bpm since this morning. SBP mostly 90-100 mm Hg range. Physical Exam Physical Exam: Elderly white female appears comfortable. Systolic blood pressure 80-94 mmHg over the past 24 hours. Telemetry showed ventricular rate currently 90 bpm range. Skin: no ecchymoses or generalized lesions. HEENT: unremarkable. Neck: Jugular venous pulse just above the clavicle at 45 degrees, no carotid bruits. Lungs: clear and equal breath sounds. Cardiac: Irregular, non-tachycardic rhythm with 2/6 holosystolic murmur at the apex, no diastolic murmur or gallop. Abdomen: Milkd tenderness, no guarding or rigidity. Extremities:Bandaged right lower extremity, good capillary refill (2 seconds), warm. Neurologic: normal affect and conversation, nonfocal. Results & Data ([facility]) Vital Signs (Past 12 Hours) Vital Signs Temp Pulse Pulse Pulse Resp BP BP 09/18/20 12:14 103 H 09/18/20 12:05 108 H 92/46 L 09/18/20 11:35 80/42 L 09/18/20 07:36 98.6 F 115 H 18 94/64 L 09/18/20 03:39 99.5 F 124 H 18 92/57 L Pulse Ox 09/18/20 12:14 09/18/20 12:05 09/18/20 11:35 09/18/20 07:36 91 09/18/20 03:39 91 PG Care Time/CCT Total # of Minutes Spent Total Time Spent with Patient: Total time spent is greater than 50% in coordination of care (as documented) at patient's floor/unit and/or counseling patient: Coding Level of Care Code 40315 Subseq Hosp Care Lvl 3 Diagnoses Atrial fibrillation with RVR I48.91 Hypotension I95.9
[2020-09-18] MEDS: DIGOXIN 0.125 MG TAB PO SCH (16:10)
[2020-09-18] MEDS: HYDROCODONE/ACETAMOPHEN 5/325MG TAB PO PRN (20:01)
[2020-09-19 06:42] LABS: BUN Creatinine Ratio 24.4 (10-20); Calcium 8.6 mg/dl (8.5-10.1); Creatinine Clr Calc Pharmacy 60.3 ml/min; Est GFR (Non-African American) 81.1; Potassium 4.4 mmol/L (3.5-5.1)
--- NOTE | 2020-09-19 07:17 | Pharmacy Report ---
Pharmacy Glycemic Short Note 2 - Date of Service September 19, 2020 - Glycemic Short BSG Results (Last 24 hours): OUTPATIENT ANTIDIABETIC REGIMEN: * Metformin 1000 mg PO BID * Patient has not been taking Pioglitazone, Jardiance, or Glipizide secondary to cost per CDE * A1c = 13% (09/09/20) ASSESSMENT: 09/18: * Little received a total of 75 units of insulin yesterday * 40 units basal + 35 units bolus * BSGs were [phone] mg/dL - controlled * Fasting BSG was 112 mg/dL today - well controlled * Dinner BSG was low last evening at 78 mg/dL * Patient received 7 units of Novolog at this time and bedtime BSG was 230 mg/dL * This may be due to rebound hypoglycemia. Therefore, will loosen carb ratio with lunch, dinner and bedtim * Possible discharge today - discharge recommendations updated 09/17: * Patient received a total of 79 units of insulin yesterday * 35 units basal + 44 units bolus * BSGs were above goal: [phone] mg/dL * Fasting BSG continued to trend up today to 159 mg/dL * Will increase basal by ~15% today * She continues to have significant hyperglycemia at lunchtime (last three days: 223-300-333 mg/dL) * Tightened her CR with breakfast only yesterday * Will further tighten CR with all meals today as well as CF 09/16: * Little received a total of 68 units of insulin yesterday * 35 units basal + 33 units bolus * BSGs were elevated yesterday [phone] mg/dL * Fasting BSG this AM is 148 mg/dL - acceptable * No change to basal insulin today * Postprandial BSGs were elevated throughout the day yesterday * Therefore, will tighten carb ratio today PLAN FOR INPATIENT GLYCEMIC CONTROL: * Hold outpatient oral diabetes medications * Basal insulin - decreased * Lantus 35 units SQ AM * Bolus insulin - loosened CR with lunch, dinner, bedtime * NovoLog per scale ACHS or Q6hrs while NPO * Goal Range: Low 110 mg/dL - High 140 mg/dL * Breakfast: Correction Factor: 15 mg/dL/unit; Nutritional / Prandial insulin per carb ratio of 1 unit per 4 grams CHO consumed * Lunch, Dinner, Bedtime: Correction Factor: 15 mg/dL/unit; Nutritional / Prandial insulin per carb ratio of 1 unit per 6 grams CHO consumed PLAN FOR DISCHARGE: * HbA1c = 13% which is very uncontrolled. Goal HbA1c for this patient based on her age and comorbidities should be less than 8.0-8.5%. Per CDE, patient is refusing any insulin or SMBG upon discharge. She was previously prescribed Pioglitazone which she has stopped taking. Jardiance and Glipizide were added in May 2020 but patient has never taken secondary to cost of medications. She is open to oral agents upon discharge. * She is being discharged to a rehab facility so would recommend that she is continued on basal-bolus insulin at rehab facility. * At rehab facility, recommend: Lantus 35 units SQ AM and Novolog/Humalog 10 units with breakfast, 6 units with lunch, 6 units with dinner plus low dose sliding scale for hyperglycemia * Sliding Scale - BS-200 = 1 unit, 201-250 = 3 units, 251-300 = 5 units, > 300 = 7 units and call MD * Upon discharge from rehab facility, would recommend: * Continuing Metformin 1000 mg PO BIDM - Check Vitamin B12 & Folate level and if deficient then add Vitamin B12 1000 mg PO daily. * Start Glipizide XL 5 mg PO daily with breakfast. Titrate upwards as needed to max of 20 mg per day. * Start Pioglitazone 15 mg PO daily. Titrate upwards as needed to max of 45 mg per day.
[2020-09-19] MEDS: LIDOCAINE 5% 1 PATCH TD SCH (08:02)
[2020-09-19] MEDS: SENNA 8.6 MG TAB PO SCH (08:02)
[2020-09-19] MEDS: POTASSIUM CHLORIDE CRTAB 20 MEQ TABCR PO SCH (08:03)
[2020-09-19] MEDS: APIXABAN 5 MG TABLET PO SCH ×2 (08:03→21:11)
[2020-09-19] MEDS: METOPROLOL TARTRATE 50 MG TAB PO SCH ×2 (08:03→21:11)
[2020-09-19] MEDS: POLYETHYLENE (MIRALAX) 17 GM PACK PO SCH ×2 (08:03→21:10)
[2020-09-19] MEDS: AMIODARONE 200 MG TAB PO SCH ×2 (08:03→21:11)
[2020-09-19] MEDS: MAGNESIUM OXIDE 400 MG TAB PO SCH (08:04)
[2020-09-19] MEDS: ADVANCED PROBIOTIC 1250 MG CAPSULE PO SCH (08:04)
[2020-09-19] MEDS: ACETAMINOPHEN 500 MG TAB PO SCH ×3 (08:04→21:11)
[2020-09-19] MEDS: INSULIN GLARGINE SOLOSTAR 100 UNITS/ML 3 ML PEN SC SCH (08:04)
[2020-09-19] MEDS: INSULIN ASPART 100 UNITS/ML 3 ML PEN SC SCH ×4 (08:06→21:08)
[2020-09-19] MEDS: TAPENTADOL HCL ER 50 MG TABCR PO SCH ×2 (08:16→21:15)
[2020-09-19] MEDS: oxyCODONE HCL IR 5 MG TAB (IMMEDIATE RELEASE) PO PRN (09:58)
--- NOTE | 2020-09-19 10:17 | Discharge Summary ---
Date of Service September 19, 2020 Admission HPI Per Admitting Provider 80-year-old female who presents the ER following a mechanical fall. She slipped and fell about 4 days ago. She complaining of pain throughout her right leg. Eventually a neighbor came and has they noticed that her Meals on Wheels was not getting picked up at the front door. She also has lower back pain. She denies any headache or change in vision. No chest pain or shortness of breath. No belly pain. She admits to some nausea. She notes she is extremely thirsty. Significant findings include fibular fracture thoracic compression fracture uncontrolled diabetes with glucose of 400, hyponatremia that corrects for glucose anion gap acidosis which could be from her diabetes with poor perfusion from dehydration is unlikely because of his presentation we will check covid negative Principal Diagnosis CAF with RVR, UTI, right fibula fracture, L3 fracture Discharge Exam Constitutional WD/WN, vitals as above Eyes PERRL, conjunctivae normal, anicteric sclerae ENMT external ear and nose normal, oropharynx normal Neck trachea midline, no thyromegaly Respiratory normal respiratory effort, lungs clear to auscultation Cardiovascular Rate/Rhythm: + irregularly irregular Heart Sounds: normal S1 and normal S2 Gastrointestinal (Abdomen) normal bowel sounds, soft, nontender, no hepatosplenomegaly Musculoskeletal right lower leg wrapped Skin no rashes, warm and dry Neurologic CN's II-XI intact bilaterally Psychiatric A+Ox3, euthymic affect Discharge Data Allergies Allergy/AdvReac Type Severity Reaction Status Date / Time codeine AdvReac Intermediate VOMITING Verified 09/09/20 14:40 Consultations 09/09/20 14:40 ED Decision to Admit Stat 09/09/20 15:02 Consult Orthopedic Surgery Routine 09/11/20 10:00 Consult Cardiology Routine Ordered Studies 09/09/20 12:56 CT cervical spine wo con Stat CT head/brain wo con Stat 09/10/20 11:26 MR knee RT wo con Routine 09/15/20 16:06 CT chest diagnostic wo con Routine Diabetes Follow up Diabetes Follow-up Needed for HgbA1c >9% Hospital Course (1) Atrial fibrillation with RVR: digoxin now therapeutic . Daily dosage increased. She remains on amiodarone and metoprolol. Cardiology consultation appreciated. TSH wnl. Cont eliquis 5mg BID. Echo with preserved EF and normal valve function. (2) Hypotension: suspect hypovolemia, pain meds, rapid a.fib, etc all contributing. Improved with fluids and lowering of metoprolol dose. cortisol wnl. (3) Diabetes: Type 2 diabetes - was only taking Metformin at home. HbA1C 13%. pharmacy glycemic team adjusting basal-bolus insulins. Improved. (4) Right fibular fracture: No surgical intervention necessary per orthopedic surgery. Nonweightbearing status. Supportive care. Pain control measures. (5) Vertebral compression fracture: L3 compression fracture. Replace low vit D. Pain control measures. (6) Knee effusion, right: Has lateral tibia plateau bone bruise, lateral meniscus tear, DJD, large knee effusion. s/p arthrocentesis 09/12/20 with 60cc bloody fluid obtained. likely due to trauma/fall. pain meds, ice, etc. compression recommended by ortho. (7) Hyponatremia: resolved (8) UTI (urinary tract infection): E. coli isolated. Completed keflex course (9) Constipation: senna/miralax for maintenance (10) Chest wall pain: checked CT chest - no rib fractures, no sternal fracture ?atelectasis vs pneumonitis in bases right sided effusion also present suspect chest wall contusion in setting of recent fall continue incentive spirometry and pulm toilet continue lidoderm patches for discomfort (11) Left ankle pain: likely sprain/contusion x-rays neg for fracture (12) Lab test negative for COVID-19 virus: x 2 this admission flu/RSV also negative (13) Hypokalemia: replaced & resolved (14) Vitamin D deficiency: 25-OH Vitamin D level low at 14 started ergocalciferol 83095 units weekly x 8 weeks (15) DVT prophylaxis: eliquis Disposition: discharge to [facility] today, September 19 Total Time Total Time Spent Total Time Spent (In Minutes): 40 minutes Total Time Includes: Examination of the Patient, Discharge Planning and Medication Reconciliation Discharge Plan Discharge Items Reason For Visit: UNCONTROLLED GLUCOSE, ACIDOSIS, FALL WITH FX Follow-up/Referrals: Milton Padilla MD [Primary Care Provider] - [facility] Provider Instructions: Orthopedics: (right ankle fracture, left ankle sprain, right knee bone contusion/sprain/effusion) *Nonweightbearing Right Leg with walker and assistance as needed, WBAT Left LE *Keep right ankle splint on, clean, and dry *Elevate right leg with pillow for pain and swelling. If sitting in chair, may need stool placed with pillow under right foot. *Ice right knee and ankle and left ankle as much as 20min every hour or at least 3-5xs a day for pain and swelling *Pain medication per primary service *DVT prophylaxis per primary service. *Encourage PT/OT. No restrictions with right knee or left ankle motion. *Follow-up with Dr Benavidez as an outpatient at [facility] 2wks upon discharge. Please call our office at [phone] to schedule the appointment or if you have any questions. Medications and DC Order Prescriptions: No Action mirtazapine 30 mg tablet 30 mg PO HS RF: 0 metformin 1,000 mg tablet 1,000 mg PO BIDM RF: 0 Admission Data Admit Date/Time: 09/09/20 14:46 Attending Provider: Paul Martinez Admit Provider: Gordo Carlin Primary Care Provider: Milton Padilla Other Providers: Gordo Carlin ; Yunior Nicholas ; Carlo San at [place] ; Josiah Esposito Coding Level of Care Code D/C Day Management >30 mins Diagnoses Atrial fibrillation with RVR I48.91 Hypotension I95.9 Diabetes E11.9 Diabetes mellitus type: type 2 Diabetes mellitus group home insulin use: without group home use Diabetes mellitus complication status: without complication Right fibular fracture S82.401A Encounter type: initial encounter Fracture type: closed Fracture morphology: unspecified fracture morphology Vertebral compression fracture M48.50XA Knee effusion, right M25.461 Hyponatremia E87.1 UTI (urinary tract infection) N39.0 Constipation K59.00 Chest wall pain R07.89 Left ankle pain M25.572 Lab test negative for COVID-19 virus Z03.818 Hypokalemia E87.6 Vitamin D deficiency E55.9 DVT prophylaxis Z29.9
[2020-09-19] MEDS ORDERED: DIGOXIN 0.25 MG TAB PO SCH (16:00)
[2020-09-20 07:55] LABS: BUN Creatinine Ratio 21.3 (10-20); Calcium 9.2 mg/dl (8.5-10.1); Est GFR (African American) 91.9; Est GFR (Non-African American) 79.3; Potassium 4.4 mmol/L (3.5-5.1)
[2020-09-20] MEDS: INSULIN ASPART 100 UNITS/ML 3 ML PEN SC SCH ×2 (08:01→11:46)
[2020-09-20] MEDS: INSULIN GLARGINE SOLOSTAR 100 UNITS/ML 3 ML PEN SC SCH (08:02)
[2020-09-20] MEDS ORDERED: INSULIN GLARGINE SOLOSTAR 100 UNITS/ML 3 ML PEN SC SCH (09:00)
[2020-09-20] MEDS: POTASSIUM CHLORIDE CRTAB 20 MEQ TABCR PO SCH (09:21)
[2020-09-20] MEDS: APIXABAN 5 MG TABLET PO SCH (09:21)
[2020-09-20] MEDS: AMIODARONE 200 MG TAB PO SCH (09:21)
[2020-09-20] MEDS: ADVANCED PROBIOTIC 1250 MG CAPSULE PO SCH (09:22)
[2020-09-20] MEDS: TAPENTADOL HCL ER 50 MG TABCR PO SCH ×2 (09:22→09:23)
[2020-09-20] MEDS: METOPROLOL TARTRATE 50 MG TAB PO SCH (09:22)
[2020-09-20] MEDS: MAGNESIUM OXIDE 400 MG TAB PO SCH (09:22)
[2020-09-20] MEDS: ACETAMINOPHEN 500 MG TAB PO SCH (09:22)
[2020-09-20] MEDS: SENNA 8.6 MG TAB PO SCH (09:22)
[2020-09-20] MEDS: LIDOCAINE 5% 1 PATCH TD SCH (09:22)
[2020-09-20] MEDS: POLYETHYLENE (MIRALAX) 17 GM PACK PO SCH (09:22)
--- NOTE | 2020-09-20 11:48 | History & Physical Bridge Note ---
Date of Service September 20, 2020 History & Physical Bridge Note Pt seen and examined by me. Denies chest pain or SOB. Tolerating PO without issue. She has ongoing pain issues related to her ankle fracture, but feels she is managing it "as well as I can". She is hoping to d/c back to home eventually. Agree with plan as outlined in d/c summary done on 09/19/19
== END 2020-09-20 12:25 | DRG 309 ==
LOC: ED 12:38 → 2N 14:46 → SUATTDRO 14:46 → 2N 16:23 → 2S 22:44

== ENCOUNTER 2021-12-22 14:10 | Inpatient (IN) ==
[2021-12-22] MEDS ORDERED: ACETAMINOPHEN 1000 MG/100 ML IV IV STA (14:27)
[2021-12-22] MEDS ORDERED: SODIUM CHLORIDE 0.9% 1000ML 1,000 ML IV SCH (14:30)
--- NOTE | 2021-12-22 14:35 | Emergency Department Note ---
Impression & Plan Weakness, Elevated troponin, Acute hyperglycemia, Acute dehydration, Acute UTI ED Provider Note NAME: MARLA VELEZ AGE: 81 SEX: F : 1940 ARRIVES VIA: Ambulance INFORMANT: [Patient][nursing] ED PROVIDER(S): [Jeronimo Stapleton MD] CHIEF COMPLAINT: Weakness HISTORY OF PRESENT ILLNESS: The patient is an 81-year-old female who states that today, her knees felt weak and she lost the ability to stand. She slid down to her knees. She could not get off the floor. She had to crawl to the phone and called EMS. The patient's blood sugar was noted to be in the 500s by EMS. The patient states that she was told that her sugar was high in the past but she is not on any medications for diabetes. There has been no cough or congestion or shortness of breath. She has chronic ongoing lower back pain. The patient states that she has noticed that she is drinking a lot and urinating a lot. No fever, no urinary burning. REVIEW OF SYSTEMS: See HPI for pertinent positives and negatives. A total of ten systems were reviewed and were otherwise negative. PMHx/PSHx: See Below SOCIAL HISTORY: See Below. PHYSICAL EXAM: GENERAL: Patient is in no acute distress. HEENT: No acute trauma, normocephalic atraumatic, mucous membranes moist, no nasal congestion, no scleral icterus. NECK: No stridor, no adenopathy, no meningismus, trachea is midline. LUNGS: Clear to auscultation bilaterally, no wheeze, no rhonchi, breath sounds equal. HEART: Without murmurs gallops or rubs, regular rate and rhythm. ABDOMEN: Soft, nontender, bowel sounds positive, no hernias, no peritonitis. EXTREMITIES: No cyanosis or edema, full range of motion of all the joints witho ut pain or difficulty, no signs for acute trauma. NEUROLOGIC: Oriented x 3, no acute motor or sensory deficits, no focal weakness. SKIN: No rash, no jaundice, no diaphoresis. DIFFERENTIAL DIAGNOSIS: Infection, UTI, dehydration, metabolic abnormality, hypo/hyperglycemia, elect rolyte disturbance, anemia, hypoxia, cardiac sources, intracerebral event, toxicologic issues, stroke, TIA, as well as other pathologies. EMERGENCY DEPARTMENT COURSE/PROCEDURES: ECG: Indication was weakness. The ECG shows a normal sinus rhythm with incomplete right bundle branch block. The rate is 73. There is no ST elevation, no PVCs. There is poor R wave progression. The QTc is 493. Continuous Cardiac Monitoring: An order was placed for continuous cardiac monitoring. The monitor shows a rate of 74 with normal sinus rhythm. MEDICAL DECISION MAKING: There is no leukocytosis or worrisome anemia. There is a normal platelet count. Sodium was slightly low at 133. Glucose was quite high at 479. No worrisome liver enzyme elevation. ECG shows a sinus rhythm, no obvious ischemia. Cardiac enzyme testing x1 is slightly elevated. This elevation could be consistent with ischemia or potentially just mismatch. Patient appeared to be in a euthyroid state. Urinalysis does show evidence for infection. COVID test returned negative. Chest x-ray does not show pneumonia or CHF. On exam, there were no focal neurologic deficits. No speech slur. The patient received IV saline, 2 L. She received IV ceftriaxone and IV Tylenol. The patient presents with weakness. She had lost strength in her legs and slumped to the ground. She could not get up on her own. She does live alone. The patient's weakness is multifactorial. She is dehydrated, she is hyperglycemic, she has a UTI. She is not safe for discharge. Hospitalization is warranted. I spoke with the patient, I talked to case management. The on-call hospitalist was consulted. Past Med/Surg History Medical History Atrial fibrillation Closed fibular fracture hx Compression fracture L3 Depression Diabetes mellitus, type 2 Fatty liver GERD (gastroesophageal reflux disease) Hyperlipidemia Paroxysmal atrial fibrillation Polyarthritis Surgical History H/O bilateral oophorectomy H/O: hysterectomy History of colonoscopy Family History Other Heart disease Social History Smoking Status: Never smoker Second Hand Exposure: Yes (hx); Hx Alcohol Use: Yes Hx Substance Use: No Preferred Language: Beninese Communication Ability: Effective Finisher Card Tender Required: No Beliefs That Will Affect Care: None Current Living Situation: Other Current Living Situation Comment: [facility] Feels Safe at Home: Yes Assistive Devices: Walker Allergies Allergies Allergy/AdvReac Type Severity Reaction Status Date / Time codeine AdvReac Intermediate VOMITING Verified 12/22/21 18:21 Home Meds Home Medications Medication Instructions Recorded Confirmed acetaminophen 325 mg tablet 650 mg PO Q4H PRN tab 10/02/20 12/22/21 cholecalciferol (vitamin D3) 50 2,000 unit PO DAILY cap 10/02/20 12/22/21 mcg (2,000 unit) capsule glipizide 10 mg tablet 10 mg PO BID 10/02/20 12/22/21 diclofenac sodium 1 % topical gel 1 g TOPICAL BID PRN 02/19/21 12/22/21 amiodarone 100 mg tablet 100 mg PO DAILY 12/22/21 12/22/21 atorvastatin 10 mg tablet 10 mg PO DAILY 12/22/21 12/22/21 docusate sodium 100 mg capsule 100 mg PO BID PRN 12/22/21 12/22/21 iron,carbonyl 65 mg-vitamin C 125 1 tab PO DAILY 12/22/21 12/22/21 mg tablet,delayed release (Vitron-C) metoprolol tartrate 25 mg tablet 25 mg PO BID 12/22/21 12/22/21 ondansetron HCl 4 mg tablet 4 mg PO Q6H PRN 12/22/21 12/22/21 potassium chloride 10 mEq 20 meq PO DAILY 12/22/21 12/22/21 capsule,extended release Previous Rx's Medication Instructions Recorded L.acidop,casei,lactis,rham-B.lact,jaquan 2 cap PO DAILY #20 cap 09/19/20 625 mg (10 billion cell) capsule (Advanced Probiotic) apixaban 5 mg tablet (Eliquis) 5 mg PO BID #20 tab 09/19/20 magnesium oxide 400 mg (241.3 mg 400 mg PO QAM #20 tab 09/19/20 magnesium) tablet mirtazapine 30 mg tablet 30 mg PO HS #20 tab 09/19/20 hydrocodone 5 mg-acetaminophen 325 1 tab PO Q6H PRN #30 tab 09/20/20 mg tablet Results & Data (ED) Vital Signs Vital Signs - 24 hr 12/22/21 14:23 12/22/21 15:09 12/22/21 15:30 Temperature 37.0 C Temperature Source Oral Pulse Rate 77 74 Respiratory Rate 19 22 Respiratory Effort / Characteristics Non-Labored Respiratory Depth Normal Respiratory Pattern Regular Blood Pressure 154/83 H 157/82 H Blood Pressure Mean 106 107 Blood Pressure Position Lying Pulse Oximetry 96 Oxygen Delivery Method Room Air Room Air Sepsis Recent Fever Within 48 Hours No Sepsis New/Unexplained Change in Mental Status No Sepsis Action Taken by Nursing No Action Required 12/22/21 17:00 12/22/21 17:30 12/22/21 18:00 Temperature Temperature Source Pulse Rate 67 67 65 Respiratory Rate 18 21 18 Respiratory Effort / Characteristics Respiratory Depth Respiratory Pattern Blood Pressure 155/73 H 154/82 H 149/64 H Blood Pressure Mean 100 106 92 Blood Pressure Position Pulse Oximetry 98 97 Oxygen Delivery Method Sepsis Recent Fever Within 48 Hours Sepsis New/Unexplained Change in Mental Status Sepsis Action Taken by Nursing 12/22/21 19:00 12/22/21 19:30 12/22/21 20:00 Temperature Temperature Source Pulse Rate 64 64 75 Respiratory Rate 20 16 19 Respiratory Effort / Characteristics Respiratory Depth Respiratory Pattern Blood Pressure 165/82 H 159/83 H 149/97 H Blood Pressure Mean 109 108 114 Blood Pressure Position Pulse Oximetry 97 97 95 Oxygen Delivery Method Sepsis Recent Fever Within 48 Hours Sepsis New/Unexplained Change in Mental Status Sepsis Action Taken by Nursing 12/22/21 21:00 Temperature Temperature Source Pulse Rate 68 Respiratory Rate 22 Respiratory Effort / Characteristics Respiratory Depth Respiratory Pattern Blood Pressure 140/68 Blood Pressure Mean 92 Blood Pressure Position Pulse Oximetry 95 Oxygen Delivery Method Sepsis Recent Fever Within 48 Hours Sepsis New/Unexplained Change in Mental Status Sepsis Action Taken by Skilled Nursing Medications Current Medication List: was personally reviewed by me Laboratory Data Attestation: I reviewed the patient's lab results. Result diagrams: 12/22/21 15:22 12/22/21 15:22 Lab Results 12/22/21 12/22/21 12/22/21 Range/Units 15:17 15:22 15:22 WBC 6.30 (4.8-10.8) K/uL RBC 5.06 (4.2-5.4) M/uL Hgb 14.6 (12.0-16.0) g/dL Hct 43.4 (37-47) % MCV 85.8 (80-100) fL MCH 28.9 (25-34) pg MCHC 33.6 (32-36) g/dL RDW Std Deviation 41.1 (36.4-46.3) fL RDW Coeff of Jude 13.0 (11.5-14.5) % Plt Count 289 (130-400) K/uL MPV 9.5 (7.4-10.4) fL Immature Gran % (Auto) 0.3 % Neut % (Auto) 68.0 % Lymph % (Auto) 21.1 % Benton % (Auto) 7.6 % Eos % (Auto) 2.5 % Baso % (Auto) 0.5 % Neut # (Auto) 4.28 (1.4-6.5) K/uL Lymph # (Auto) 1.33 (1.2-3.4) K/uL Benton # (Auto) 0.48 (0.11-0.59) K/uL Eos # (Auto) 0.16 (0-0.5) K/uL Baso # (Auto) 0.03 (0-0.2) K/uL Immature Gran # (Auto) 0.02 (0.00-0.02) K/uL Sodium (136-145) mmol/L Potassium (3.5-5.1) mmol/L Chloride (98-107) mmol/L Carbon Dioxide (21-32) mmol/L Anion Gap (3-11) BUN (6-23) mg/dl Creatinine (0.6-1.2) mg/dl Est Cr Clr Drug Dosing ml/min Est GFR ( Amer) ml/min Est GFR (Non-Af Amer) ml/min BUN/Creatinine Ratio (10-20) Glucose (70-99(Fasting)) mg/dl POC Glucose (70-99) mg/dl Calcium (8.5-10.1) mg/dl Magnesium (1.7-2.4) mg/dl Total Bilirubin (0.2-1.0) mg/dl AST (13-39) U/L ALT (7-52) U/L Alkaline Phosphatase (34-104) U/L Total Creatine Kinase (26-192) U/L Troponin I High Sens 22.6 H (0-14) pg/ml Total Protein (6.0-8.3) gm/dl Albumin (3.4-5.0) gm/dl Globulin (2.5-4.0) gm/dl Albumin/Globulin Ratio (0.9-2) TSH (0.300-4.500) uIu/ml Urine Color Urine Appearance (Clear) Urine pH (4.5-7.5) Ur Specific [place] (1.000-1.030) Urine Protein (Negative) Urine Glucose (UA) (Negative) Urine Ketones (Negative) Urine Blood (Negative) Urine Nitrite (Negative) Urine Bilirubin (Negative) Urine Urobilinogen (Negative) Ur Leukocyte Esterase (Negative) Urine WBC (Auto) (0-5) /hpf Urine RBC (Auto) (0-4) /hpf U Hyaline Cast (Auto) (0-5) /lpf U Epithel Cells (Auto) (0-5) /lpf Urine Bacteria (Auto) (Negative) Urine Yeast (None Prsent) SARS-CoV-2, RNA, NAAT NEGATIVE (NEGATIVE) 12/22/21 12/22/21 12/22/21 Range/Units 15:22 15:22 15:47 WBC (4.8-10.8) K/uL RBC (4.2-5.4) M/uL Hgb (12.0-16.0) g/dL Hct (37-47) % MCV (80-100) fL MCH (25-34) pg MCHC (32-36) g/dL RDW Std Deviation (36.4-46.3) fL RDW Coeff of Jude (11.5-14.5) % Plt Count (130-400) K/uL MPV (7.4-10.4) fL Immature Gran % (Auto) % Neut % (Auto) % Lymph % (Auto) % Benton % (Auto) % Eos % (Auto) % Baso % (Auto) % Neut # (Auto) (1.4-6.5) K/uL Lymph # (Auto) (1.2-3.4) K/uL Benton # (Auto) (0.11-0.59) K/uL Eos # (Auto) (0-0.5) K/uL Baso # (Auto) (0-0.2) K/uL Immature Gran # (Auto) (0.00-0.02) K/uL Sodium 133 L (136-145) mmol/L Potassium 4.1 (3.5-5.1) mmol/L Chloride 97 L (98-107) mmol/L Carbon Dioxide 24 (21-32) mmol/L Anion Gap 12 H (3-11) BUN 13 (6-23) mg/dl Creatinine 0.83 (0.6-1.2) mg/dl Est Cr Clr Drug Dosing 50.7 ml/min Est GFR ( Amer) 75.6 ml/min Est GFR (Non-Af Amer) 65.2 ml/min BUN/Creatinine Ratio 15.7 (10-20) Glucose 479 H* (70-99(Fasting)) mg/dl POC Glucose (70-99) mg/dl Calcium 9.4 (8.5-10.1) mg/dl Magnesium 1.7 (1.7-2.4) mg/dl Total Bilirubin 0.4 (0.2-1.0) mg/dl AST 25 (13-39) U/L ALT 25 (7-52) U/L Alkaline Phosphatase 90 (34-104) U/L Total Creatine Kinase 57 (26-192) U/L Troponin I High Sens (0-14) pg/ml Total Protein 7.9 (6.0-8.3) gm/dl Albumin 4.1 (3.4-5.0) gm/dl Globulin 3.8 (2.5-4.0) gm/dl Albumin/Globulin Ratio 1.1 (0.9-2) TSH 1.576 (0.300-4.500) uIu/ml Urine Color Yellow Urine Appearance Cloudy A (Clear) Urine pH 5.0 (4.5-7.5) Ur Specific [place] 1.035 H (1.000-1.030) Urine Protein Negative (Negative) Urine Glucose (UA) 3+ H (Negative) Urine Ketones 1+ H (Negative) Urine Blood 1+ H (Negative) Urine Nitrite Positive A (Negative) Urine Bilirubin Negative (Negative) Urine Urobilinogen Negative (Negative) Ur Leukocyte Esterase Trace H (Negative) Urine WBC (Auto) >30 H (0-5) /hpf Urine RBC (Auto) 0-4 (0-4) /hpf U Hyaline Cast (Auto) 1-5 (0-5) /lpf U Epithel Cells (Auto) 20-30 H (0-5) /lpf Urine Bacteria (Auto) 4+ H (Negative) Urine Yeast Present A (None Prsent) SARS-CoV-2, RNA, NAAT (NEGATIVE) 12/22/21 12/22/21 Range/Units 18:26 21:01 WBC (4.8-10.8) K/uL RBC (4.2-5.4) M/uL Hgb (12.0-16.0) g/dL Hct (37-47) % MCV (80-100) fL MCH (25-34) pg MCHC (32-36) g/dL RDW Std Deviation (36.4-46.3) fL RDW Coeff of Jude (11.5-14.5) % Plt Count (130-400) K/uL MPV (7.4-10.4) fL Immature Gran % (Auto) % Neut % (Auto) % Lymph % (Auto) % Benton % (Auto) % Eos % (Auto) % Baso % (Auto) % Neut # (Auto) (1.4-6.5) K/uL Lymph # (Auto) (1.2-3.4) K/uL Benton # (Auto) (0.11-0.59) K/uL Eos # (Auto) (0-0.5) K/uL Baso # (Auto) (0-0.2) K/uL Immature Gran # (Auto) (0.00-0.02) K/uL Sodium (136-145) mmol/L Potassium (3.5-5.1) mmol/L Chloride (98-107) mmol/L Carbon Dioxide (21-32) mmol/L Anion Gap (3-11) BUN (6-23) mg/dl Creatinine (0.6-1.2) mg/dl Est Cr Clr Drug Dosing ml/min Est GFR ( Amer) ml/min Est GFR (Non-Af Amer) ml/min BUN/Creatinine Ratio (10-20) Glucose (70-99(Fasting)) mg/dl POC Glucose 387 H* 297 H (70-99) mg/dl Calcium (8.5-10.1) mg/dl Magnesium (1.7-2.4) mg/dl Total Bilirubin (0.2-1.0) mg/dl AST (13-39) U/L ALT (7-52) U/L Alkaline Phosphatase (34-104) U/L Total Creatine Kinase (26-192) U/L Troponin I High Sens (0-14) pg/ml Total Protein (6.0-8.3) gm/dl Albumin (3.4-5.0) gm/dl Globulin (2.5-4.0) gm/dl Albumin/Globulin Ratio (0.9-2) TSH (0.300-4.500) uIu/ml Urine Color Urine Appearance (Clear) Urine pH (4.5-7.5) Ur Specific [place] (1.000-1.030) Urine Protein (Negative) Urine Glucose (UA) (Negative) Urine Ketones (Negative) Urine Blood (Negative) Urine Nitrite (Negative) Urine Bilirubin (Negative) Urine Urobilinogen (Negative) Ur Leukocyte Esterase (Negative) Urine WBC (Auto) (0-5) /hpf Urine RBC (Auto) (0-4) /hpf U Hyaline Cast (Auto) (0-5) /lpf U Epithel Cells (Auto) (0-5) /lpf Urine Bacteria (Auto) (Negative) Urine Yeast (None Prsent) SARS-CoV-2, RNA, NAAT (NEGATIVE) Administered Medications Discontinued Medications Acetaminophen (Acetaminophen 1000 Mg/100 Ml Iv) 1,000 mg IV NOW STA Stop: 12/22/21 14:28 Last Admin: 12/22/21 15:33 Dose: 1,000 mg Documented by: [id number] Sodium Chloride (Nss 1000ml) 1,000 mls @ 999 mls/hr IV .Q1H1M TITI Stop: 12/22/21 15:30 Last Infusion: 12/22/21 16:34 Dose: 0 mls/hr Documented by: [id number] Admin: 12/22/21 15:33 Dose: 999 mls/hr Documented by: [id number] Sodium Chloride (Nss 1000ml) 1,000 mls @ 999 mls/hr IV .Q1H1M ONE Stop: 12/22/21 17:33 Last Infusion: 12/22/21 17:44 Dose: 0 mls/hr Documented by: [id number] Admin: 12/22/21 16:37 Dose: 999 mls/hr Documented by: [id number] Ceftriaxone Sodium (Rocephin) 2,000 mg in 70 mls @ 140 mls/hr IV NOW STA Stop: 12/22/21 17:27 Last Infusion: 12/22/21 17:44 Dose: 0 mls/hr Documented by: [id number] Admin: 12/22/21 17:10 Dose: 140 mls/hr Documented by: [id number] Insulin Human Regular (Novolin-R Insulin Per Unit Charge) 7 units IV NOW STA Stop: 12/22/21 18:37 Last Admin: 12/22/21 19:12 Dose: 7 units Documented by: [id number] Cosigned by: [id number] Imaging Data Radiologist's Impression: Chest X-Ray 12/22/21 14:27 XR chest 1V portable CLINICAL HISTORY: weakness. Evaluate cardiopulmonary status COMPARISON STUDY: 09/18/2020 TECHNIQUE: 1 view of the chest FINDINGS: Single frontal view of the chest demonstrates the cardiomediastinal silhouette to be within normal limits. The lungs are clear of alveolar opacities. There is no evidence for pleural effusion. There is no evidence for vascular congestion. There is no acute osseous pathology. IMPRESSION: 1. No acute cardiopulmonary disease. ACT 112: Negative or not required by law. Electronically signed by: Michael Franklin M.D. 12/22/2021 2:50 PM Discharge Plan Visit Data Chief Complaint: Weakness Stated Complaint: weakness ED Provider: Jeronimo Stapleton Discharge Problem: Weakness, Elevated troponin, Acute hyperglycemia, Acute dehydration, Acute UTI Patient Disposition: Admitted As Inpatient Condition: Fair Forms Stand Alone Forms: My [facility] Prescriptions Prescriptions: No Action cholecalciferol (vitamin D3) 50 mcg (2,000 unit) capsule 2,000 unit PO DAILY RF: 0 glipizide 10 mg tablet 10 mg PO BID RF: 0 acetaminophen 325 mg tablet 650 mg PO Q4H PRN (Reason: fever or pain) RF: 0 Eliquis 5 mg Tablet 5 mg PO BID Qty: 20 RF: 0 Advanced Probiotic 625 mg (10 billion cell) Capsule 2 cap PO DAILY Qty: 20 RF: 0 magnesium oxide 400 mg (241.3 mg magnesium) Tablet 400 mg PO QAM Qty: 20 RF: 0 mirtazapine 30 mg tablet 30 mg PO HS Qty: 20 RF: 0 hydrocodone-acetaminophen 5-325 mg tablet 1 tab PO Q6H PRN (Reason: pain) Qty: 30 RF: 0 diclofenac sodium 1 % Gel 1 g TOPICAL BID PRN (Reason: Pain) RF: 0 potassium chloride 10 mEq Capsule, Extended Release 20 meq PO DAILY RF: 0 atorvastatin 10 mg Tablet 10 mg PO DAILY RF: 0 ondansetron HCl [Zofran] 4 mg Tablet 4 mg PO Q6H PRN (Reason: NAUSEA/VOMITING) RF: 0 docusate sodium 100 mg Capsule 100 mg PO BID PRN (Reason: Constipation) RF: 0 amiodarone 100 mg Tablet 100 mg PO DAILY RF: 0 metoprolol tartrate 25 mg Tablet 25 mg PO BID RF: 0 Vitron-C 65 mg iron- 125 mg Tablet,Delayed Release (Dr/Ec) 1 tab PO DAILY RF: 0 Referrals Referrals: Josh Benites DO [Primary Care Provider] -
--- NOTE | 2021-12-22 14:51 | XRay Report ---
XR chest 1V portable CLINICAL HISTORY: weakness. Evaluate cardiopulmonary status COMPARISON STUDY: 09/18/2020 TECHNIQUE: 1 view of the chest FINDINGS: Single frontal view of the chest demonstrates the cardiomediastinal silhouette to be within normal li mits. The lungs are clear of alveolar opacities. There is no evidence for pleural effusion. There is no evidence for vascular congestion. There is no acute osseous pathology. IMPRESSION: 1. No acute cardiopulmonary disease. ACT 112: Negative or not required by law. Electronically signed by: Michael Franklin M.D. 12/22/2021 2:50 PM
[2021-12-22 15:41] LABS: Basophils # (auto) 0.03 K/uL (0-0.2); Basophils % (auto) 0.5 %; Eosinophils # (auto) 0.16 K/uL (0-0.5); Eosinophils % (auto) 2.5 %; Hematocrit (blood only) 43.4 % (37-47); Hemoglobin 14.6 g/dL (12.0-16.0); Immature Granulocytes # (auto) 0.02 K/uL (0.00-0.02); Immature Granulocytes % (auto) 0.3 %; Lymphocytes # (auto) 1.33 K/uL (1.2-3.4); Lymphocytes % (auto) 21.1 %; Mean Corpuscular Hemoglobin 28.9 pg (25-34); Mean Corpuscular Hgb Conc 33.6 g/dL (32-36); Mean Corpuscular Volume 85.8 fL (80-100); Mean Platelet Volume 9.5 fL (7.4-10.4); Monocytes # (auto) 0.48 K/uL (0.11-0.59); Monocytes % (auto) 7.6 %; Neutrophils # (auto) 4.28 K/uL (1.4-6.5); Platelet Count 289 K/uL (130-400); RDW Standard Deviation 41.1 fL (36.4-46.3); Red Blood Count 5.06 M/uL (4.2-5.4)
[2021-12-22 16:23] LABS: Albumin Globulin Ratio 1.1 (0.9-2); Albumin Level 4.1 gm/dl (3.4-5.0); BUN Creatinine Ratio 15.7 (10-20); Bilirubin,Total 0.4 mg/dl (0.2-1.0); Calcium 9.4 mg/dl (8.5-10.1); Creatinine Clr Calc Pharmacy 50.7 ml/min; Est GFR (African American) 75.6 ml/min; Est GFR (Non-African American) 65.2 ml/min; Globulin 3.8 gm/dl (2.5-4.0); Magnesium 1.7 mg/dl (1.7-2.4); Potassium 4.1 mmol/L (3.5-5.1); Total Protein 7.9 gm/dl (6.0-8.3)
[2021-12-22] MEDS ORDERED: SODIUM CHLORIDE 0.9% 1000ML 1,000 ML IV ONE (16:33)
[2021-12-22 16:39] LABS: Appearance Urine Cloudy (Clear); Bacteria Urine Automated 4+ (Negative); Bilirubin Urine Negative (Negative); Blood Urine 1+ (Negative); Color Urine Yellow; Epithelial Cell Urine Auto 20-30 /lpf (0-5); Glucose Urine UA 3+ (Negative); Ketones Urine 1+ (Negative); Leukocyte Esterase Urine Trace (Negative); Nitrite Urine Positive (Negative); Protein Urine Negative (Negative); RBC Urine Automated 0-4 /hpf (0-4); Specific Gravity Urine 1.035 (1.000-1.030); Urobilinogen Urine Negative (Negative); WBC Urine Automated >30 /hpf (0-5)
[2021-12-22] MEDS ORDERED: cefTRIAXone SODIUM 2,000 MG/70 ML BAG IV STA (16:58)
--- NOTE | 2021-12-22 18:30 | History & Physical Report ---
Date of Service December 22, 2021 Assessment & Plan (1) Weakness: Plan: Patient is 81-year-old female with PMH DM II, paroxysmal atrial fibrillation, HLD, depression, GERD presented to ER with complaint of weakness today, unable to get out of chair. Denies fall. Weakness likely secondary to underlying infection Fall precautions PT/OT eval (2) UTI (urinary tract infection): Plan: In ER patient afebrile, vital stable. No leukocytosis. Denies abdominal pain or flank pain Reported urinary frequency x couple of days UA:+ Nitrite, trace leuk esterase,> 30 WBC, 4+ bacteria, 20-30 epithelial cells Urine culture pending In ER given Rocephin Continue Rocephin (3) Hyperglycemia: (4) Diabetes mellitus, type 2: Plan: Reported increased thirst and urinary frequency past couple of days In ER glucose: 479 In ER given 2L NSS repeat BS A1c 8.1 on 05/2021 Hold home glipizide Basal bolus insulin per protocol A1c in a.m. (5) Elevated troponin: Plan: High-sensitivity troponin: 22. EKG sinus rhythm, incomplete RBBB, left anterior fascicular block, nonspecific ST changes Denies chest pain, shortness of breath Trend troponin If troponins increasing consider echo EKG in AM (6) Paroxysmal atrial fibrillation: Plan: Current sinus rhythm Continue amiodarone, Eliquis, metoprolol tartrate (7) Hyperlipidemia: Plan: Continue atorvastatin DVT Prophylaxis On Eliquis DNR/DNI as per discussion with pt Follows with Dr Josh Benites for routine care Pt was seen and care coordinated with Dr Hernandez. See addendum History of Present Illness Chief Complaint: Weakness Primary Care Provider: Josh Benites DO Patient is 81-year-old female with PMH DM II, paroxysmal atrial fibrillation, HLD, depression, GERD presented to ER with complaint of weakness today. Patient reports today was sitting in the living room in chair and she tried to get up and was unable to get up out of chair. She reports she typically does not sit in the chair in her living room. She uses a walker to ambulate at baseline. Patient states since she was unable to get up out of chair she lowered herself to the ground and crawled to her bedroom to get to the phone to call for assistance to get up. EMS found that patient was hypoglycemic and transported patient to ER. Patient denies any fall. She reports the past couple days has had urinary frequency and increased thirst. She does not believe that she is taking anything for diabetes. She does not check her blood sugars regularly. Denies fever/chills, diaphoresis, N/V/D/C, JEFFRIES, dizziness, syncope, vision changes, neck pain, CP, SOB, orthopnea, palpitations, cough, sore throat, choking, otalgia, rhinorrhea, abdominal pain, paresthesias, extremity edema, rashes, dysuria, hematuria In ER patient afebrile, vital stable. No leukocytosis. Glucose 479. UA consistent with UTI. Allergies Allergy/AdvReac Type Severity Reaction Status Date / Time codeine AdvReac Intermediate VOMITING Verified 12/22/21 18:21 Home Medications Medication Instructions Recorded Confirmed Type L.acidop,casei,lactis,rham-B.lact,jaquan 2 cap PO DAILY #20 cap 09/19/20 12/22/21 Rx 625 mg (10 billion cell) capsule (Advanced Probiotic) apixaban 5 mg tablet (Eliquis) 5 mg PO BID #20 tab 09/19/20 12/22/21 Rx magnesium oxide 400 mg (241.3 mg 400 mg PO QAM #20 tab 09/19/20 12/22/21 Rx magnesium) tablet mirtazapine 30 mg tablet 30 mg PO HS #20 tab 09/19/20 12/22/21 Rx hydrocodone 5 mg-acetaminophen 325 1 tab PO Q6H PRN #30 tab 09/20/20 12/22/21 Rx mg tablet acetaminophen 325 mg tablet 650 mg PO Q4H PRN tab 10/02/20 12/22/21 History cholecalciferol (vitamin D3) 50 2,000 unit PO DAILY cap 10/02/20 12/22/21 History mcg (2,000 unit) capsule glipizide 10 mg tablet 10 mg PO BID 10/02/20 12/22/21 History diclofenac sodium 1 % topical gel 1 g TOPICAL BID PRN 02/19/21 12/22/21 History amiodarone 100 mg tablet 100 mg PO DAILY 12/22/21 12/22/21 History atorvastatin 10 mg tablet 10 mg PO DAILY 12/22/21 12/22/21 History docusate sodium 100 mg capsule 100 mg PO BID PRN 12/22/21 12/22/21 History iron,carbonyl 65 mg-vitamin C 125 1 tab PO DAILY 12/22/21 12/22/21 History mg tablet,delayed release (Vitron-C) metoprolol tartrate 25 mg tablet 25 mg PO BID 12/22/21 12/22/21 History ondansetron HCl 4 mg tablet 4 mg PO Q6H PRN 12/22/21 12/22/21 History potassium chloride 10 mEq 20 meq PO DAILY 12/22/21 12/22/21 History capsule,extended release Past Med/Surg History Medical History (Updated 12/22/21 @ 18:46 by Cheryl Landaverde PA-C) Atrial fibrillation Closed fibular fracture hx Compression fracture L3 Depression Diabetes mellitus, type 2 Fatty liver GERD (gastroesophageal reflux disease) Hyperlipidemia Paroxysmal atrial fibrillation Polyarthritis Surgical History H/O bilateral oophorectomy H/O: hysterectomy History of colonoscopy Family History Other Heart disease Social History Smoking Status: Never smoker Second Hand Exposure: Yes (hx); Hx Alcohol Use: Yes Hx Substance Use: No Preferred Language: Polish Communication Ability: Effective 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 Beliefs That Will Affect Care: None Current Living Situation: Other Current Living Situation Comment: [facility] Feels Safe at Home: Yes Assistive Devices: Walker Review of Systems Review of Systems: All systems reviewed & are unremarkable except as noted in HPI & below Physical Exam Physical Exam: General: no distress, overweight Head: normocephalic, atraumatic Eyes: PERRL, EOM's intact, conjunctiva non-injected, anicteric ENT: normal inspection external ears, nose, mucous membranes dry Neck: supple, trachea midline Lungs: clear, no respiratory distress, no wheezing/rhonchi/rales CV: RRR, no murmur, no pretibial edema Abd: protuberant, normal BS, soft, non-tender Ext: no cyanosis, no calf tenderness Neuro: A&O x 3, no focal deficits noted, normal affect Skin: warm, dry Results & Data Results & Data ([facility]) Vital Signs (Past 12 Hours) Vital Signs Temp Pulse Resp BP Pulse Ox 12/22/21 18:00 65 18 149/64 H 12/22/21 17:30 67 21 154/82 H 97 12/22/21 17:00 67 18 155/73 H 98 12/22/21 15:30 74 22 157/82 H 96 12/22/21 14:23 37.0 C 77 19 154/83 H Laboratory Results Short CBC 12/22/21 Range/Units 15:22 WBC 6.30 (4.8-10.8) K/uL Hgb 14.6 (12.0-16.0) g/dL Hct 43.4 (37-47) % Plt Count 289 (130-400) K/uL BMP 12/22/21 15:22 Sodium 133 L Potassium 4.1 Chloride 97 L Carbon Dioxide 24 BUN 13 Creatinine 0.83 Glucose 479 H* Calcium 9.4 Cardiac Enzymes 12/22/21 Range/Units 15:22 Total Creatine Kinase 57 (26-192) U/L Liver Function 12/22/21 Range/Units 15:22 Total Bilirubin 0.4 (0.2-1.0) mg/dl AST 25 (13-39) U/L ALT 25 (7-52) U/L Alkaline Phosphatase 90 (34-104) U/L Albumin 4.1 (3.4-5.0) gm/dl Urine 12/22/21 Range/Units 15:47 Urine Color Yellow Urine Appearance Cloudy A (Clear) Urine pH 5.0 (4.5-7.5) Ur Specific [place] 1.035 H (1.000-1.030) Urine Protein Negative (Negative) Urine Glucose (UA) 3+ H (Negative) Diagnostic Findings Chest X-Ray 12/22/21 14:27 XR chest 1V portable CLINICAL HISTORY: weakness. Evaluate cardiopulmonary status COMPARISON STUDY: 09/18/2020 TECHNIQUE: 1 view of the chest FINDINGS: Single frontal view of the chest demonstrates the cardiomediastinal silhouette to be within normal limits. The lungs are clear of alveolar opacities. There is no evidence for pleural effusion. There is no evidence for vascular congestion. There is no acute osseous pathology. IMPRESSION: 1. No acute cardiopulmonary disease. ACT 112: Negative or not required by law. Electronically signed by: Michael Franklin M.D. 12/22/2021 2:50 PM Supervising Physician Co-Signing Physician Notes Attending addendum: The patient was seen and examined in emergency room She lives alone and has been seen by [facility] at home After the session today with the home health nurse she cannot get up from the chair and slid on the floor She called 911 and was brought into the emergency room Has been having polyuria and polydipsia but no other significant symptoms except generalized weakness On examination Hemodynamically stable with blood pressure on the upper side No acute distress except feeling of cold Chestdecreased breath sounds bilaterally with occasional crackles at the bases HeartS1-S2, regular Abdomenbenign Extremitiesno edema CNSalert, awake and oriented x3 Generally weak but no focal neurodeficit Admission labs, EKG and imaging studies reviewed Generalized weakness with a fall without any significant injury Has high blood sugar and UA suggestive of infection likely contributing the incidence Antibiotics and fluid have been started We will get PT and OT evaluation for possible placement Agree with assessment and plan as outlined above by SHANNON Holm Dr
[2021-12-22] MEDS ORDERED: NovoLIN-R INSULIN PER UNIT CHARGE IV STA (18:36)
[2021-12-22] MEDS ORDERED: ACETAMINOPHEN 325 MG TAB PO PRN (19:59)
[2021-12-22] MEDS ORDERED: INSULIN ASPART PER UNIT SC SCH (23:15)
[2021-12-22] MEDS ORDERED: GLUCOSE 10 TABS/TUBE PO PRN (23:15)
[2021-12-22] MEDS ORDERED: POLYETHYLENE (MIRALAX) 17 GM PACK PO PRN (23:15)
[2021-12-22] MEDS ORDERED: GLUCOSE 40% GEL 15 GM TUBE PO PRN (23:15)
[2021-12-22] MEDS ORDERED: DEXTROSE 50% 50 ML SYRINGE IV PRN (23:15)
[2021-12-22] MEDS ORDERED: CARBOHYDRATES FOR HYPOGLYCEMIA PO PRN (23:15)
[2021-12-22] MEDS ORDERED: PHARMACY GLYCEMIC MGMT CONSULT PRN (23:15)
[2021-12-22] MEDS ORDERED: INSULIN GLARGINE SOLOSTAR 100 UNITS/ML 3 ML PEN SC SCH (23:15)
[2021-12-22] MEDS ORDERED: DOCUSATE SODIUM 100 MG CAP PO PRN (23:15)
[2021-12-22] MEDS ORDERED: GLUCAGON FOR INJ 1 MG VIAL SQ PRN (23:15)
[2021-12-23] MEDS ORDERED: traMADol HCL 50 MG TABLET PO PRN (00:36)
[2021-12-23] MEDS ORDERED: INSULIN GLARGINE SOLOSTAR 100 UNITS/ML 3 ML PEN SC STA (00:38)
[2021-12-23] MEDS: INSULIN ASPART PER UNIT SC SCH ×5 (01:07→21:00)
[2021-12-23] MEDS: METOPROLOL TARTRATE 25 MG TAB PO SCH ×3 (01:09→20:58)
[2021-12-23] MEDS: APIXABAN 5 MG TABLET PO SCH ×3 (01:09→20:58)
[2021-12-23] MEDS: MIRTAZAPINE TAB 15 MG TAB PO SCH ×2 (01:09→20:58)
[2021-12-23] MEDS ORDERED: INSULIN ASPART PER UNIT SC SCH (04:00)
[2021-12-23 06:04] LABS: Hematocrit (blood only) 36.2 % (37-47); Hemoglobin 11.9 g/dL (12.0-16.0); Mean Corpuscular Hemoglobin 28.1 pg (25-34); Mean Corpuscular Hgb Conc 32.9 g/dL (32-36); Mean Corpuscular Volume 85.6 fL (80-100); Mean Platelet Volume 9.3 fL (7.4-10.4); Platelet Count 271 K/uL (130-400); RDW Coefficient of Variation 13.2 % (11.5-14.5); RDW Standard Deviation 41.1 fL (36.4-46.3); Red Blood Count 4.23 M/uL (4.2-5.4); White Blood Count 6.85 K/uL (4.8-10.8)
[2021-12-23 06:29] LABS: BUN Creatinine Ratio 17.7 (10-20); Calcium 8.1 mg/dl (8.5-10.1); Creatinine Clr Calc Pharmacy 66.1 ml/min; Est GFR (African American) 96.6 ml/min; Est GFR (Non-African American) 83.4 ml/min; Potassium 3.4 mmol/L (3.5-5.1)
[2021-12-23 07:38] LABS: Estimated Average Glucose 404 mg/dl; Hemoglobin A1C 15.7 % (4.5-5.6)
[2021-12-23] MEDS: CHOLECALCIFEROL 1,000 UNITS 25 MCG TAB PO SCH (07:38)
[2021-12-23] MEDS: AMIODARONE 200 MG TAB PO SCH (07:38)
[2021-12-23] MEDS: ASCORBIC ACID 500 MG TAB PO SCH (07:38)
[2021-12-23] MEDS: ATORVASTATIN 10 MG TAB PO SCH (07:38)
[2021-12-23] MEDS: FERROUS SULFATE 325 MG TAB PO SCH (07:39)
[2021-12-23] MEDS: MAGNESIUM OXIDE 400 MG TAB PO SCH (07:39)
[2021-12-23] MEDS: ADVANCED PROBIOTIC 1250 MG CAPSULE PO SCH (07:39)
[2021-12-23] MEDS: POTASSIUM CHLORIDE CRTAB 20 MEQ TABCR PO SCH (07:39)
--- NOTE | 2021-12-23 08:51 | Pharmacy Report ---
Pharmacy Glycemic Short Note 2 - Date of Service December 23, 2021 - Glycemic Short BSG Results (Last 24 hours): 12/22/21 12/22/21 12/22/21 15:22 18:26 21:01 Glucose 479 H* POC Glucose 387 H* 297 H 12/23/21 12/23/21 12/23/21 00:25 00:28 05:16 Glucose 199 H POC Glucose 418 H* 439 H* 12/23/21 12/23/21 05:19 07:25 Glucose POC Glucose 245 H 123 H OUTPATIENT ANTIDIABETIC REGIMEN: * Glipizide 10 mg PO BID * HbA1c = 15.7% ASSESSMENT: * 81 yo F admitted yesterday secondary to weakness. Pharmacy has been consulted to assist with inpatient glycemic management. Patient is known to our service. HbA1c from today is 15.7% which places patient at an extremely high risk for both macro- and microvascular complications from diabetes. She has refused insulin at home in the past. Compliance and cost is an issue. Currently, only taking Glipizide at home. * Significant hyperglycemia upon admission of 387 mg/dL. Received a 7 unit IV insulin bolus, 20 units of Lantus and 20 units of Novolog overnight. * Fasting BSG was 123 mg/dL this AM. Will hold AM Lantus. Convert to once daily Lantus at HS. Dose may need increased as patient required 30-40 units of basal insulin during last admission. * Continue with current Novolog parameters which are based upon weight/stress of 3. Last admission, patient had significant hyperglycemia at lunch requiring tighter Novolog coverage with breakfast only. Will monitor today and make changes as needed. PLAN FOR INPATIENT GLYCEMIC CONTROL: * Hold outpatient oral diabetes medications * Basal insulin * Lantus 20 units SQ HS * Bolus insulin * NovoLog per scale ACHS or Q6hrs while NPO * Goal Range: Low 110 mg/dL - High 140 mg/dL * Correction Factor: 20 mg/dL/unit * Nutritional / Prandial insulin per carb ratio of 1 unit per 7 grams CHO consumed
[2021-12-23] MEDS ORDERED: INSULIN GLARGINE SOLOSTAR 100 UNITS/ML 3 ML PEN SC SCH ×2 (09:00→21:00)
--- NOTE | 2021-12-23 13:26 | Electrocardiogram Report ---
Test Reason : Blood Pressure : / mmHG Vent. Rate : 073 BPM Atrial Rate : 073 BPM P-R Int : 186 ms QRS Dur : 108 ms QT Int : 448 ms P-R-T Axes : 061 -59 016 degrees QTc Int : 493 ms Normal sinus rhythm Incomplete right bundle branch block Left anterior fascicular block Poor R wave progression, consider anterior FL vs. lead placement vs. LVH Abnormal ECG When compared with ECG of 24-FEB-2021 06:46, Borderline criteria for Anterior infarct are now Present Borderline criteria for Anterolateral infarct are now Present No significant change was found Confirmed by Milton Newman ([id number]) on 12/23/2021 1:26:14 PM Referred By: REFERRED SELF Confirmed By:Milton Newman
--- NOTE | 2021-12-23 13:59 | Electrocardiogram Report ---
Test Reason : Blood Pressure : / mmHG Vent. Rate : 060 BPM Atrial Rate : 060 BPM P-R Int : 206 ms QRS Dur : 106 ms QT Int : 492 ms P-R-T Axes : 070 -65 055 degrees QTc Int : 492 ms Normal sinus rhythm with sinus arrhythmia Left axis deviation Low voltage QRS Incomplete right bundle branch block Inferior infarct , age undetermined Abnormal ECG When compared with ECG of 22-DEC-2021 15:07, (unconfirmed) Left anterior fascicular block is no longer Present Confirmed by Milton Newman ([id number]) on 12/23/2021 1:58:27 PM Referred By: REFERRED SELF Confirmed By:Milton Newman
--- NOTE | 2021-12-23 15:03 | Hospitalist Progress Note ---
Date of Service December 23, 2021 Assessment & Plan (1) Weakness: (2) UTI (urinary tract infection): (3) Diabetes mellitus, type 2: (4) Hyperglycemia: (5) Elevated troponin: (6) Paroxysmal atrial fibrillation: Plan: 81-year-old female with PMH DM II, paroxysmal atrial fibrillation, HLD, depression, GERD presented to ER with complaint of weakness for one day, unable to get out of chair Weakness likely secondary to underlying infection- Fall precautions, PT/OT eval Uncomplicated UTI- on rocephin pending urine clx results, showing GNB so far. UA reviewed. No sepsis or SIRS criteria. Uncontrolled DM-2 with hyperglycemia- BG 479 in ED with polydipsia and polyuria - A1c 15.7, Consult transportation broker - Hold home glipizide, continue lantus SSI- currently reasonably controlled PAF- in NSR. Continue amiodarone, Eliquis, metoprolol tartrate Elevated trop- mild, no chest pain, no acute ischemic changes. Hypokalemia- repleted, recheck in am DVT ppx- eliquis Dispo- on iv ABx pending urine clx results, PT/OT eval pending Admission and Anticipated Discharge Date Admission Date: December 22, 2021 Subjective Denies any new issues. Still feels weak. Denies any fever, chills, flank pain, dysuria, nausea, vomiting. Physical Exam Physical Exam: General: Elderly female lying comfortably in bed, not in distress, on room air HEENT: EOMI, CHRIS, MMM Chest: Clear breath sounds bilaterally, no wheezes or crackles CVS: Regular rate and rhythm, normal heart sounds, no murmur Abdomen: Soft, non tender, not distended, normal bowel sounds Neuro: Awake, alert, oriented, conversing well, non focal No CVA or suprapubic tenderness Extremities: No cyanosis, clubbing or edema Results & Data Results & Data ([facility]) Vital Signs (Past 12 Hours) Vital Signs Temp Pulse Pulse Resp BP Pulse Ox 12/23/21 14:59 65 12/23/21 14:44 36.6 C 72 20 133/78 96 12/23/21 11:22 36.3 C L 65 20 91/52 L 95 12/23/21 07:37 37.0 C 63 20 96/62 L 96 12/23/21 07:12 61 12/23/21 03:33 84 Laboratory Results Short CBC 12/22/21 12/23/21 Range/Units 15:22 05:16 WBC 6.30 6.85 (4.8-10.8) K/uL Hgb 14.6 11.9 L (12.0-16.0) g/dL Hct 43.4 36.2 L (37-47) % Plt Count 289 271 (130-400) K/uL BMP 12/22/21 12/23/21 15:22 05:16 Sodium 133 L 138 Potassium 4.1 3.4 L Chloride 97 L 107 Carbon Dioxide 24 23 BUN 13 11 Creatinine 0.83 0.62 Glucose 479 H* 199 H Calcium 9.4 8.1 L Cardiac Enzymes 12/22/21 Range/Units 15:22 Total Creatine Kinase 57 (26-192) U/L Liver Function 12/22/21 Range/Units 15:22 Total Bilirubin 0.4 (0.2-1.0) mg/dl AST 25 (13-39) U/L ALT 25 (7-52) U/L Alkaline Phosphatase 90 (34-104) U/L Albumin 4.1 (3.4-5.0) gm/dl Urine 12/22/21 Range/Units 15:47 Urine Color Yellow Urine Appearance Cloudy A (Clear) Urine pH 5.0 (4.5-7.5) Ur Specific [place] 1.035 H (1.000-1.030) Urine Protein Negative (Negative) Urine Glucose (UA) 3+ H (Negative) Medications Administered Current Inpatient Medications Acetaminophen (Acetaminophen 325 Mg Tab) 650 mg PO Q4H PRN PRN Reason: Pain or Fever Stop: 01/21/22 23:14 Hydrocodone Bitart/Acetaminophen (Hydrocodone/Acetamophen 5/325mg Tab) 1 tab PO Q6H PRN PRN Reason: pain Stop: 01/05/22 23:14 Amiodarone HCl (Amiodarone 200 Mg Tab) 100 mg PO DAILY TITI Stop: 01/22/22 08:59 Last Admin: 12/23/21 07:38 Dose: 100 mg Documented by: Apixaban (Apixaban 5 Mg Tablet) 5 mg PO BID TITI Stop: 01/21/22 23:14 Last Admin: 12/23/21 07:37 Dose: 5 mg Documented by: Ascorbic Acid (Ascorbic Acid 500 Mg Tab) 250 mg PO QAM [facility] Stop: 01/22/22 08:59 Last Admin: 12/23/21 07:38 Dose: 250 mg Documented by: Atorvastatin Calcium (Atorvastatin 10 Mg Tab) 10 mg PO DAILY [facility] Stop: 01/22/22 08:59 Last Admin: 12/23/21 07:38 Dose: 10 mg Documented by: Dextrose (Dextrose 50% 50 Ml Syringe) 25 - 50 ml IV UD PRN; Protocol PRN Reason: Hypoglycemia Protocol Stop: 01/21/22 23:14 Docusate Sodium (Docusate Sodium 100 Mg Cap) 100 mg PO BID PRN PRN Reason: Constipation Stop: 01/21/22 23:14 Ferrous Sulfate (Ferrous Sulfate 325 Mg Tab) 325 mg PO DAILY [facility] Stop: 01/22/22 08:59 Last Admin: 12/23/21 07:39 Dose: 325 mg Documented by: Glucagon (Glucagon For Inj 1 Mg Vial) 1 mg SQ UD PRN; Protocol PRN Reason: Hypoglycemia Protocol Stop: 01/21/22 23:14 Glucose (Glucose 10 Tabs/Tube) 4 - 8 tabs PO UD PRN; Protocol PRN Reason: Hypoglycemia Protocol Stop: 01/21/22 23:14 Glucose (Glucose 40% Gel 15 Gm Tube) 15 - 30 gm PO UD PRN; Protocol PRN Reason: Hypoglycemia Protocol Stop: 01/21/22 23:14 Ceftriaxone Sodium 2,000 mg/ (Dextrose) 70 mls @ 100 mls/hr IV Q24H [facility]; Protocol Stop: 12/28/21 15:59 Insulin Aspart (Insulin Aspart Per Unit) 0 units SC [facility]; Protocol Stop: 01/22/22 00:39 Last Admin: 12/23/21 12:35 Dose: 3 units Documented by: Insulin Glargine (Insulin Glargine Solostar 100 Units/Ml 3 Ml Pen) 20 units SC [facility]; Protocol Stop: 01/22/22 20:59 Lactobacillus Acidophilus (Advanced Probiotic 1250 Mg Capsule) 2 cap PO DAILY [facility] Stop: 01/22/22 08:59 Last Admin: 12/23/21 07:39 Dose: 2 cap Documented by: Magnesium Oxide (Magnesium Oxide 400 Mg Tab) 400 mg PO QAM [facility] Stop: 01/22/22 08:59 Last Admin: 12/23/21 07:39 Dose: 400 mg Documented by: Metoprolol Tartrate (Metoprolol Tartrate 25 Mg Tab) 25 mg PO BID TITI Stop: 01/21/22 23:14 Last Admin: 12/23/21 07:37 Dose: 25 mg Documented by: Mirtazapine (Mirtazapine Tab 15 Mg Tab) 30 mg PO HS TITI Stop: 01/21/22 23:14 Last Admin: 12/23/21 01:09 Dose: 30 mg Documented by: Miscellaneous (Carbohydrates For Hypoglycemia ) 15 - 30 gm PO UD PRN PRN Reason: Hypoglycemia Protocol Stop: 01/21/22 23:14 Miscellaneous Information (Pharmacy Glycemic Mgmt Consult) 1 ea N/A UD PRN; Protocol PRN Reason: Consult Stop: 01/21/22 23:14 Polyethylene Glycol (Polyethylene (Miralax) 17 Gm Pack) 17 gm PO DAILY PRN PRN Reason: Constipation Stop: 01/21/22 23:14 Potassium Chloride (Potassium Chloride Crtab 20 Meq Tabcr) 20 meq PO DAILY TITI Stop: 01/22/22 08:59 Last Admin: 12/23/21 07:39 Dose: 20 meq Documented by: Tramadol HCl (Tramadol Hcl 50 Mg Tablet) 25 - 50 mg PO Q4H PRN PRN Reason: Pain Stop: 01/22/22 00:35 Vitamin D (Cholecalciferol 1,000 Units 25 Mcg Tab) 2,000 units PO DAILY TITI Stop: 01/22/22 08:59 Last Admin: 12/23/21 07:38 Dose: 2,000 units Documented by:
[2021-12-23] MEDS: ACETAMINOPHEN 325 MG TAB PO PRN (15:26)
[2021-12-23] MEDS: cefTRIAXone SODIUM 2,000 MG in DEXTROSE 5% 50 ML IV SCH (15:59)
[2021-12-23] MEDS: HYDROCODONE/ACETAMOPHEN 5/325MG TAB PO PRN (20:58)
[2021-12-24] MEDS: INSULIN ASPART PER UNIT SC SCH ×4 (08:10→21:40)
[2021-12-24] MEDS: FERROUS SULFATE 325 MG TAB PO SCH (08:15)
[2021-12-24] MEDS: METOPROLOL TARTRATE 25 MG TAB PO SCH ×2 (08:15→20:08)
[2021-12-24] MEDS: APIXABAN 5 MG TABLET PO SCH ×2 (08:15→20:09)
[2021-12-24] MEDS: CHOLECALCIFEROL 1,000 UNITS 25 MCG TAB PO SCH (08:16)
[2021-12-24] MEDS: ATORVASTATIN 10 MG TAB PO SCH (08:16)
[2021-12-24] MEDS: POTASSIUM CHLORIDE CRTAB 20 MEQ TABCR PO SCH (08:16)
[2021-12-24] MEDS: AMIODARONE 200 MG TAB PO SCH (08:17)
[2021-12-24] MEDS: MAGNESIUM OXIDE 400 MG TAB PO SCH (08:17)
[2021-12-24] MEDS: ADVANCED PROBIOTIC 1250 MG CAPSULE PO SCH (08:17)
[2021-12-24] MEDS: ASCORBIC ACID 500 MG TAB PO SCH (08:17)
[2021-12-24 08:32] LABS: Calcium 8.6 mg/dl (8.5-10.1); Creatinine Clr Calc Pharmacy 68.1 ml/min; Est GFR (African American) 97.7 ml/min; Est GFR (Non-African American) 84.3 ml/min; Magnesium 1.7 mg/dl (1.7-2.4); Phosphorus 2.7 mg/dl (2.5-4.9); Potassium 3.8 mmol/L (3.5-5.1)
[2021-12-24 08:42] LABS: Troponin I High Sensitivity 11.7 pg/ml (0-14)
--- NOTE | 2021-12-24 13:47 | Pharmacy Report ---
Pharmacy Glycemic Short Note 2 - Date of Service December 24, 2021 - Glycemic Short BSG Results (Last 24 hours): 12/23/21 12/23/21 12/24/21 16:18 19:44 07:20 Glucose 206 H POC Glucose 221 H 217 H 12/24/21 12/24/21 07:34 11:32 Glucose POC Glucose 188 H 277 H OUTPATIENT ANTIDIABETIC REGIMEN: * Glipizide 10 mg PO BID * HbA1c = 15.7% ASSESSMENT: 12/24 * Patient received total of 48 units of insulin yesterday, of which 20 units were basal * Fasting BSG 188 mg/dL - plan to titrate up to 25 units of basal for tonight (stress of 2 dosing) * Lunch BSG trending upward, tightened CR - may have tighter parameter for breakfast tomorrow AM 12/23 * 81 yo F admitted yesterday secondary to weakness. Pharmacy has been consulted to assist with inpatient glycemic management. Patient is known to our service. HbA1c from today is 15.7% which places patient at an extremely high risk for both macro- and microvascular complications from diabetes. She has refused insulin at home in the past. Compliance and cost is an issue. Currently, only taking Glipizide at home. * Significant hyperglycemia upon admission of 387 mg/dL. Received a 7 unit IV insulin bolus, 20 units of Lantus and 20 units of Novolog overnight. * Fasting BSG was 123 mg/dL this AM. Will hold AM Lantus. Convert to once daily Lantus at HS. Dose may need increased as patient required 30-40 units of basal insulin during last admission. * Continue with current Novolog parameters which are based upon weight/stress of 3. Last admission, patient had significant hyperglycemia at lunch requiring tighter Novolog coverage with breakfast only. Will monitor today and make changes as needed. PLAN FOR INPATIENT GLYCEMIC CONTROL: * Hold outpatient oral diabetes medications * Basal insulin - increase * Lantus 25 units SQ HS * Bolus insulin * NovoLog per scale ACHS or Q6hrs while NPO * Goal Range: Low 110 mg/dL - High 140 mg/dL * Correction Factor: 25 mg/dL/unit * Nutritional / Prandial insulin per carb ratio of 1 unit per 7 grams CHO consumed
[2021-12-24] MEDS ORDERED: INSULIN HUMAN REGULAR PER UNIT 5 UNITS in SYRINGE 4.95 ML IV ONE (17:00)
[2021-12-24] MEDS: cefTRIAXone SODIUM 2,000 MG in DEXTROSE 5% 50 ML IV SCH (17:01)
--- NOTE | 2021-12-24 17:05 | Hospitalist Progress Note ---
Date of Service December 24, 2021 Assessment & Plan (1) Weakness: (2) UTI (urinary tract infection): (3) Diabetes mellitus, type 2: (4) Hyperglycemia: (5) Elevated troponin: (6) Paroxysmal atrial fibrillation: Plan: 81-year-old female with PMH DM II, paroxysmal atrial fibrillation, HLD, depression, GERD presented to ER with complaint of weakness for one day, unable to get out of chair Weakness likely secondary to underlying infection- Fall precautions, PT/OT eval Uncomplicated UTI- urine clx with klebsiella pneumoniae pansensitive except to macrobid. S/p rocephin. Will change to bactrim for 2 more days. Uncontrolled DM-2 with hyperglycemia- BG 479 in ED with polydipsia and polyuria - A1c 15.7, Consult certified adaptive physical educator - Hold home glipizide, continue lantus SSI- being managed by glycemic pharmacist PAF- in NSR. Continue amiodarone, Eliquis, metoprolol tartrate Elevated trop- mild, no chest pain, no acute ischemic changes. DVT ppx- eliquis Dispo- PT recommended rehab- pending placement Admission and Anticipated Discharge Date Admission Date: December 22, 2021 Subjective Still feels weak. No other issues. No fever, chills, chest pain, shortness of breath. Physical Exam Physical Exam: General: Elderly female lying comfortably in bed, not in distress, on room air HEENT: EOMI, CHRIS, MMM Chest: Clear breath sounds bilaterally, no wheezes or crackles CVS: Regular rate and rhythm, normal heart sounds, no murmur Abdomen: Soft, non tender, not distended, normal bowel sounds Neuro: Awake, alert, oriented, conversing well, non focal No CVA or suprapubic tenderness Extremities: No cyanosis, clubbing or edema Results & Data Results & Data ([facility]) Vital Signs (Past 12 Hours) Vital Signs Temp Pulse Pulse Resp BP BP Pulse Ox 12/24/21 15:01 66 12/24/21 14:43 37.2 C 67 18 113/71 97 12/24/21 10:45 36.7 C 63 16 118/64 97 12/24/21 07:44 55 L 12/24/21 07:09 36.6 C 54 L 17 113/70 97 Laboratory Results [facility] 12/24/21 07:20 Sodium 140 Potassium 3.8 Chloride 108 H Carbon Dioxide 26 BUN 12 Creatinine 0.60 Glucose 206 H Calcium 8.6 Medications Administered Current Inpatient Medications Acetaminophen (Acetaminophen 325 Mg Tab) 650 mg PO Q4H PRN PRN Reason: Pain or Fever Stop: 01/21/22 23:14 Last Admin: 12/23/21 15:26 Dose: 650 mg Documented by: Hydrocodone Bitart/Acetaminophen (Hydrocodone/Acetamophen 5/325mg Tab) 1 tab PO Q6H PRN PRN Reason: pain Stop: 01/05/22 23:14 Last Admin: 12/23/21 20:58 Dose: 1 tab Documented by: Amiodarone HCl (Amiodarone 200 Mg Tab) 100 mg PO DAILY TITI Stop: 01/22/22 08:59 Last Admin: 12/24/21 08:17 Dose: Not Given Documented by: Apixaban (Apixaban 5 Mg Tablet) 5 mg PO BID TITI Stop: 01/21/22 23:14 Last Admin: 12/24/21 08:15 Dose: 5 mg Documented by: Ascorbic Acid (Ascorbic Acid 500 Mg Tab) 250 mg PO QAM TITI Stop: 01/22/22 08:59 Last Admin: 12/24/21 08:17 Dose: 250 mg Documented by: Atorvastatin Calcium (Atorvastatin 10 Mg Tab) 10 mg PO DAILY TITI Stop: 01/22/22 08:59 Last Admin: 12/24/21 08:16 Dose: 10 mg Documented by: Dextrose (Dextrose 50% 50 Ml Syringe) 25 - 50 ml IV UD PRN; Protocol PRN Reason: Hypoglycemia Protocol Stop: 01/21/22 23:14 Docusate Sodium (Docusate Sodium 100 Mg Cap) 100 mg PO BID PRN PRN Reason: Constipation Stop: 01/21/22 23:14 Ferrous Sulfate (Ferrous Sulfate 325 Mg Tab) 325 mg PO DAILY TITI Stop: 01/22/22 08:59 Last Admin: 12/24/21 08:15 Dose: 325 mg Documented by: Glucagon (Glucagon For Inj 1 Mg Vial) 1 mg SQ UD PRN; Protocol PRN Reason: Hypoglycemia Protocol Stop: 01/21/22 23:14 Glucose (Glucose 10 Tabs/Tube) 4 - 8 tabs PO UD PRN; Protocol PRN Reason: Hypoglycemia Protocol Stop: 01/21/22 23:14 Glucose (Glucose 40% Gel 15 Gm Tube) 15 - 30 gm PO UD PRN; Protocol PRN Reason: Hypoglycemia Protocol Stop: 01/21/22 23:14 Ceftriaxone Sodium 2,000 mg/ (Dextrose) 70 mls @ 100 mls/hr IV Q24H [facility]; Protocol Stop: 12/28/21 15:59 Last Infusion: 12/23/21 17:09 Dose: Infused Documented by: Insulin Human Regular 5 units/ (Syringe) 5 mls @ 30 mls/min IV NOW ONE Stop: 12/24/21 17:01 Insulin Aspart (Insulin Aspart Per Unit) 0 units SC [facility]; Protocol Stop: 01/22/22 00:39 Last Admin: 12/24/21 12:05 Dose: 11 units Documented by: Insulin Glargine (Insulin Glargine Solostar 100 Units/Ml 3 Ml Pen) 25 units SC [facility]; Protocol Stop: 01/23/22 20:59 Lactobacillus Acidophilus (Advanced Probiotic 1250 Mg Capsule) 2 cap PO DAILY [facility] Stop: 01/22/22 08:59 Last Admin: 12/24/21 08:17 Dose: 2 cap Documented by: Magnesium Oxide (Magnesium Oxide 400 Mg Tab) 400 mg PO QAM [facility] Stop: 01/22/22 08:59 Last Admin: 12/24/21 08:17 Dose: 400 mg Documented by: Metoprolol Tartrate (Metoprolol Tartrate 25 Mg Tab) 25 mg PO BID [facility] Stop: 01/21/22 23:14 Last Admin: 12/24/21 08:15 Dose: Not Given Documented by: Mirtazapine (Mirtazapine Tab 15 Mg Tab) 30 mg PO [facility] Stop: 01/21/22 23:14 Last Admin: 12/23/21 20:58 Dose: 30 mg Documented by: Miscellaneous (Carbohydrates For Hypoglycemia ) 15 - 30 gm PO UD PRN PRN Reason: Hypoglycemia Protocol Stop: 01/21/22 23:14 Miscellaneous Information (Pharmacy Glycemic Mgmt Consult) 1 ea N/A UD PRN; Protocol PRN Reason: Consult Stop: 01/21/22 23:14 Polyethylene Glycol (Polyethylene (Miralax) 17 Gm Pack) 17 gm PO DAILY PRN PRN Reason: Constipation Stop: 01/21/22 23:14 Potassium Chloride (Potassium Chloride Crtab 20 Meq Tabcr) 20 meq PO DAILY TITI Stop: 01/22/22 08:59 Last Admin: 12/24/21 08:16 Dose: 20 meq Documented by: Tramadol HCl (Tramadol Hcl 50 Mg Tablet) 25 - 50 mg PO Q4H PRN PRN Reason: Pain Stop: 01/22/22 00:35 Vitamin D (Cholecalciferol 1,000 Units 25 Mcg Tab) 2,000 units PO DAILY TITI Stop: 01/22/22 08:59 Last Admin: 12/24/21 08:16 Dose: 2,000 units Documented by:
[2021-12-24] MEDS ORDERED: INSULIN HUMAN REGULAR PER UNIT 10 UNITS in SYRINGE 9.9 ML IV ONE (20:00)
[2021-12-24] MEDS ORDERED: INSULIN GLARGINE SOLOSTAR 100 UNITS/ML 3 ML PEN SC SCH ×2 (20:00→21:00)
[2021-12-24] MEDS: MIRTAZAPINE TAB 15 MG TAB PO SCH (20:08)
[2021-12-24] MEDS: HYDROCODONE/ACETAMOPHEN 5/325MG TAB PO PRN (20:09)
[2021-12-25] MEDS: INSULIN ASPART PER UNIT SC SCH ×6 (01:19→20:49)
--- NOTE | 2021-12-25 06:08 | Electrocardiogram Report ---
Test Reason : Blood Pressure : / mmHG Vent. 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
[2021-12-25] MEDS: METOPROLOL TARTRATE 25 MG TAB PO SCH ×2 (07:52→20:48)
[2021-12-25] MEDS: APIXABAN 5 MG TABLET PO SCH ×2 (07:52→20:48)
[2021-12-25] MEDS: MAGNESIUM OXIDE 400 MG TAB PO SCH (07:52)
[2021-12-25] MEDS: ASCORBIC ACID 500 MG TAB PO SCH (07:52)
[2021-12-25] MEDS: ADVANCED PROBIOTIC 1250 MG CAPSULE PO SCH (07:53)
[2021-12-25] MEDS: SULFAMETHOXAZOLE/TRIMETHOPRIM DS 800/160MG TAB PO SCH ×2 (07:53→20:48)
[2021-12-25] MEDS: AMIODARONE 200 MG TAB PO SCH (07:53)
[2021-12-25] MEDS: CHOLECALCIFEROL 1,000 UNITS 25 MCG TAB PO SCH (07:53)
[2021-12-25] MEDS: ATORVASTATIN 10 MG TAB PO SCH (07:54)
[2021-12-25] MEDS: FERROUS SULFATE 325 MG TAB PO SCH (07:54)
[2021-12-25] MEDS: POTASSIUM CHLORIDE CRTAB 20 MEQ TABCR PO SCH (08:49)
[2021-12-25] MEDS ORDERED: SULFAMETHOXAZOLE/TRIMETHOPRIM DS 800/160MG TAB PO SCH (09:00)
--- NOTE | 2021-12-25 13:07 | Hospitalist Progress Note ---
Date of Service December 25, 2021 Assessment & Plan (1) Weakness: (2) UTI (urinary tract infection): (3) Diabetes mellitus, type 2: (4) Hyperglycemia: (5) Elevated troponin: (6) Paroxysmal atrial fibrillation: Plan: 81-year-old female with PMH DM II, paroxysmal atrial fibrillation, HLD, depression, GERD presented to ER with complaint of weakness for one day, unable to get out of chair Weakness likely secondary to underlying infection- PT recommended rehab Uncomplicated UTI- urine clx with klebsiella pneumoniae pansensitive except to macrobid. S/p rocephin for 3days and changed to Bactrim for 2 more days- monitor renal function and K while on bactrim. Uncontrolled DM-2 with hyperglycemia- BG 479 in ED with polydipsia and polyuria - A1c 15.7, clinical unit educator following - Hold home glipizide, continue lantus SSI- being managed by glycemic pharmacist PAF- in NSR. Continue amiodarone, Eliquis, metoprolol tartrate Elevated trop- mild, no chest pain, no acute ischemic changes. DVT ppx- eliquis Dispo- PT recommended rehab- pending placement Admission and Anticipated Discharge Date Admission Date: December 22, 2021 Subjective No new issues. States she is holding on. No fever, chills, chest pain, shortness of breath, nausea, vomiting. States she would like to walk around. Physical Exam Physical Exam: General: Elderly female lying comfortably in bed, not in distress, on room air HEENT: EOMI, CHRIS, MMM Chest: Clear breath sounds bilaterally, no wheezes or crackles CVS: Regular rate and rhythm, normal heart sounds, no murmur Abdomen: Soft, non tender, not distended, normal bowel sounds Neuro: Awake, alert, oriented, conversing well, non focal No CVA or suprapubic tenderness Extremities: No cyanosis, clubbing or edema Results & Data Results & Data ([facility]) Vital Signs (Past 12 Hours) Vital Signs Temp Pulse Pulse Resp BP BP Pulse Ox 12/25/21 11:15 37.1 C 63 17 104/68 96 12/25/21 08:00 36.5 C 60 17 114/69 97 12/25/21 07:15 57 L 12/25/21 03:53 36.8 C 56 L 18 102/61 95
--- NOTE | 2021-12-25 15:19 | Pharmacy Report ---
Pharmacy Glycemic Short Note 2 - Date of Service December 25, 2021 - Glycemic Short BSG Results (Last 24 hours): 12/24/21 12/24/21 12/24/21 16:31 16:31 18:16 POC Glucose 342 H* 306 H* 372 H* 12/24/21 12/24/21 12/24/21 19:34 21:18 22:26 POC Glucose 328 H* 217 H 176 H 12/25/21 12/25/21 12/25/21 01:08 04:08 07:45 POC Glucose 89 92 122 H 12/25/21 11:51 POC Glucose 214 H OUTPATIENT ANTIDIABETIC REGIMEN: * Glipizide 10 mg PO BID * HbA1c = 15.7% ASSESSMENT: 12/25 * Patient received total of 78 units of insulin yesterday, of which 25 units were basal * Parameters for novolog tightened and BSGs improving much more * Fasting BSG 122 mg/dL - continue same basal, possibly dose with dinner * Continue same CF/CR for now 12/24 * Patient received total of 48 units of insulin yesterday, of which 20 units were basal * Fasting BSG 188 mg/dL - plan to titrate up to 25 units of basal for tonight (stress of 2 dosing) * Lunch BSG trending upward, tightened CR - may have tighter parameter for breakfast tomorrow AM 12/23 * 81 yo F admitted yesterday secondary to weakness. Pharmacy has been consulted to assist with inpatient glycemic management. Patient is known to our service. HbA1c from today is 15.7% which places patient at an extremely high risk for both macro- and microvascular complications from diabetes. She has refused insulin at home in the past. Compliance and cost is an issue. Currently, only taking Glipizide at home. * Significant hyperglycemia upon admission of 387 mg/dL. Received a 7 unit IV insulin bolus, 20 units of Lantus and 20 units of Novolog overnight. * Fasting BSG was 123 mg/dL this AM. Will hold AM Lantus. Convert to once daily Lantus at HS. Dose may need increased as patient required 30-40 units of basal insulin during last admission. * Continue with current Novolog parameters which are based upon weight/stress of 3. Last admission, patient had significant hyperglycemia at lunch requiring tighter Novolog coverage with breakfast only. Will monitor today and make changes as needed. PLAN FOR INPATIENT GLYCEMIC CONTROL: * Hold outpatient oral diabetes medications * Basal insulin * Lantus 25 units SQ HS * Bolus insulin * NovoLog per scale ACHS or Q6hrs while NPO * Goal Range: Low 110 mg/dL - High 140 mg/dL * Correction Factor: 15 mg/dL/unit * Nutritional / Prandial insulin per carb ratio of 1 unit per 5 grams CHO consumed
[2021-12-25] MEDS: ACETAMINOPHEN 325 MG TAB PO PRN (16:08)
[2021-12-25] MEDS ORDERED: INSULIN GLARGINE SOLOSTAR 100 UNITS/ML 3 ML PEN SC SCH (18:00)
[2021-12-25] MEDS: MIRTAZAPINE TAB 15 MG TAB PO SCH (20:48)
[2021-12-26] MEDS: METOPROLOL TARTRATE 25 MG TAB PO SCH ×2 (07:25→20:15)
[2021-12-26] MEDS: APIXABAN 5 MG TABLET PO SCH ×2 (07:25→20:08)
[2021-12-26] MEDS: AMIODARONE 200 MG TAB PO SCH (07:26)
[2021-12-26] MEDS: POTASSIUM CHLORIDE CRTAB 20 MEQ TABCR PO SCH (07:26)
[2021-12-26] MEDS: MAGNESIUM OXIDE 400 MG TAB PO SCH (07:26)
[2021-12-26] MEDS: SULFAMETHOXAZOLE/TRIMETHOPRIM DS 800/160MG TAB PO SCH ×2 (07:26→20:09)
[2021-12-26] MEDS: ADVANCED PROBIOTIC 1250 MG CAPSULE PO SCH (07:27)
[2021-12-26] MEDS: ASCORBIC ACID 500 MG TAB PO SCH (07:27)
[2021-12-26] MEDS: CHOLECALCIFEROL 1,000 UNITS 25 MCG TAB PO SCH (07:27)
[2021-12-26] MEDS: ATORVASTATIN 10 MG TAB PO SCH (07:27)
[2021-12-26] MEDS: FERROUS SULFATE 325 MG TAB PO SCH (07:28)
[2021-12-26] MEDS: INSULIN ASPART PER UNIT SC SCH ×4 (08:19→20:08)
[2021-12-26 10:15] LABS: BUN Creatinine Ratio 21.5 (10-20); Creatinine Clr Calc Pharmacy 52.2 ml/min; Est GFR (African American) 80.2 ml/min; Est GFR (Non-African American) 69.2 ml/min; Potassium 4.3 mmol/L (3.5-5.1)
[2021-12-26] MEDS: INSULIN GLARGINE SOLOSTAR 100 UNITS/ML 3 ML PEN SC SCH (17:15)
[2021-12-26] MEDS ORDERED: INSULIN GLARGINE SOLOSTAR 100 UNITS/ML 3 ML PEN SC SCH (18:00)
--- NOTE | 2021-12-26 18:37 | Hospitalist Progress Note ---
Date of Service December 26, 2021 Assessment & Plan (1) Weakness: (2) UTI (urinary tract infection): (3) Diabetes mellitus, type 2: (4) Hyperglycemia: (5) Elevated troponin: (6) Paroxysmal atrial fibrillation: Plan: 81-year-old female with PMH DM II, paroxysmal atrial fibrillation, HLD, depression, GERD presented to ER 12/22 with complaint of weakness for one day, unable to get out of chair. She is being managed for the following: #. Weakness likely secondary to underlying infection- PT recommended rehab #. Uncomplicated UTI- urine clx with klebsiella pneumoniae pansensitive except to macrobid. S/p rocephin for 3days and changed to Bactrim for 2 more days- monitor renal function and K while on bactrim. #. Uncontrolled DM-2 with hyperglycemia- BG 479 in ED with polydipsia and polyuria - A1c 15.7, primary special educator following - Hold home glipizide, continue lantus SSI- being managed by glycemic pharmacist #. PAF- in NSR. Continue amiodarone, Eliquis, metoprolol tartrate #. Elevated trop- mild, no chest pain, no acute ischemic changes. DVT ppx- eliquis Dispo- PT recommended rehab- pending placement Admission and Anticipated Discharge Date Admission Date: December 22, 2021 Subjective Patient seen and examined at bedside as a follow-up for weakness, UTI, paroxysmal A. fib. Patient was lying in bed, on room air, NAD, no new acute events overnight. Patient denies having any bowel movement since last 6 to 7 days, patient states that she is waiting for her MiraLAX since long time. Communicated with RN.. Patient reports eating okay, denies fever/headache/chills/chest pain/palpitations/belly pain/other review of symptoms. Physical Exam Physical Exam: GENERAL: Alert and oriented x3. NAD, on RA. HEENT: No pallor, no icterus. Pupils equal, round and reactive to light. Oral mucosa moist. NECK: No JVD, no neck masses. HEART: S1 and S2 heard. Regular rate and rhythm. No murmur, no gallop. RESPIRATORY SYSTEM: Normal AP diameter. No accessory muscle use. No wheezing, no crackles. ABDOMEN: Soft, bowel sounds present, nontender, no distention. CENTRAL NERVOUS SYSTEM: No facial droop. Speech is clear. Obeys simple commands. Moves extremities. EXTREMITIES: No edema, no erythema seen. Results & Data Results & Data ([facility]) Vital Signs (Past 12 Hours) Vital Signs Temp Pulse Resp BP BP Pulse Ox 12/26/21 15:06 36.9 C 64 16 99/63 L 95 12/26/21 12:42 36.9 C 63 16 111/63 94 12/26/21 09:23 36.8 C 57 L 18 94/53 L 93
[2021-12-26] MEDS: MIRTAZAPINE TAB 15 MG TAB PO SCH (20:09)
[2021-12-27] MEDS: APIXABAN 5 MG TABLET PO SCH ×2 (07:10→20:05)
[2021-12-27] MEDS: SULFAMETHOXAZOLE/TRIMETHOPRIM DS 800/160MG TAB PO SCH ×2 (07:10→20:04)
[2021-12-27] MEDS: AMIODARONE 200 MG TAB PO SCH (07:10)
[2021-12-27] MEDS: ATORVASTATIN 10 MG TAB PO SCH (07:10)
[2021-12-27] MEDS: MAGNESIUM OXIDE 400 MG TAB PO SCH (07:10)
[2021-12-27] MEDS: CHOLECALCIFEROL 1,000 UNITS 25 MCG TAB PO SCH (07:10)
[2021-12-27] MEDS: METOPROLOL TARTRATE 25 MG TAB PO SCH ×3 (07:11→20:06)
[2021-12-27] MEDS: FERROUS SULFATE 325 MG TAB PO SCH (07:11)
[2021-12-27] MEDS: ASCORBIC ACID 500 MG TAB PO SCH (07:11)
[2021-12-27] MEDS: POTASSIUM CHLORIDE CRTAB 20 MEQ TABCR PO SCH (07:11)
[2021-12-27] MEDS: ADVANCED PROBIOTIC 1250 MG CAPSULE PO SCH (07:11)
[2021-12-27] MEDS: INSULIN ASPART PER UNIT SC SCH ×6 (08:00→20:06)
[2021-12-27 08:34] LABS: Hematocrit (blood only) 40.7 % (37-47); Hemoglobin 13.2 g/dL (12.0-16.0); Mean Corpuscular Hemoglobin 28.6 pg (25-34); Mean Corpuscular Hgb Conc 32.4 g/dL (32-36); Mean Corpuscular Volume 88.3 fL (80-100); Mean Platelet Volume 9.8 fL (7.4-10.4); Platelet Count 282 K/uL (130-400); Red Blood Count 4.61 M/uL (4.2-5.4); White Blood Count 5.09 K/uL (4.8-10.8)
[2021-12-27 08:49] LABS: BUN Creatinine Ratio 18.9 (10-20); Calcium 9.6 mg/dl (8.5-10.1); Creatinine Clr Calc Pharmacy 55.7 ml/min; Est GFR (African American) 86.8 ml/min; Est GFR (Non-African American) 74.9 ml/min; Magnesium 1.8 mg/dl (1.7-2.4); Phosphorus 4.7 mg/dl (2.5-4.9); Potassium 4.5 mmol/L (3.5-5.1)
--- NOTE | 2021-12-27 10:40 | Pharmacy Report ---
Pharmacy Glycemic Short Note 2 - Date of Service December 27, 2021 - Glycemic Short BSG Results (Last 24 hours): 12/26/21 12/26/21 12/26/21 11:55 16:41 19:53 Glucose POC Glucose 217 H 237 H 247 H 12/27/21 12/27/21 07:19 07:36 Glucose 143 H POC Glucose 145 H OUTPATIENT ANTIDIABETIC REGIMEN: * Glipizide 10 mg PO BID * HbA1c = 15.7% ASSESSMENT: 12/27/21: * Lantus was increased yesterday. Fasting BSG reasonable, suggesting that Lantus dose is appropriate. * Novolog parameters tightened this morning d/t daytime hyperglycemia trend. * Will continue to follow and adjust as indicated. 12/25 * Patient received total of 78 units of insulin yesterday, of which 25 units were basal * Parameters for novolog tightened and BSGs improving much more * Fasting BSG 122 mg/dL - continue same basal, possibly dose with dinner * Continue same CF/CR for now 12/24 * Patient received total of 48 units of insulin yesterday, of which 20 units were basal * Fasting BSG 188 mg/dL - plan to titrate up to 25 units of basal for tonight (stress of 2 dosing) * Lunch BSG trending upward, tightened CR - may have tighter parameter for breakfast tomorrow AM 12/23 * 81 yo F admitted yesterday secondary to weakness. Pharmacy has been consulted to assist with inpatient glycemic management. Patient is known to our service. HbA1c from today is 15.7% which places patient at an extremely high risk for both macro- and microvascular complications from diabetes. She has refused insulin at home in the past. Compliance and cost is an issue. Currently, only taking Glipizide at home. * Significant hyperglycemia upon admission of 387 mg/dL. Received a 7 unit IV insulin bolus, 20 units of Lantus and 20 units of Novolog overnight. * Fasting BSG was 123 mg/dL this AM. Will hold AM Lantus. Convert to once daily Lantus at HS. Dose may need increased as patient required 30-40 units of basal insulin during last admission. * Continue with current Novolog parameters which are based upon weight/stress of 3. Last admission, patient had significant hyperglycemia at lunch requiring tighter Novolog coverage with breakfast only. Will monitor today and make changes as needed. PLAN FOR INPATIENT GLYCEMIC CONTROL: * Hold outpatient oral diabetes medications * Basal insulin * Lantus 30 units SQ HS * Bolus insulin * NovoLog per scale ACHS or Q6hrs while NPO * Goal Range: Low 110 mg/dL - High 140 mg/dL * Correction Factor: 10 mg/dL/unit * Nutritional / Prandial insulin per carb ratio of 1 unit per 4 grams CHO consumed
--- NOTE | 2021-12-27 15:53 | Hospitalist Progress Note ---
Date of Service December 27, 2021 Assessment & Plan (1) Weakness: (2) UTI (urinary tract infection): (3) Diabetes mellitus, type 2: (4) Hyperglycemia: (5) Elevated troponin: (6) Paroxysmal atrial fibrillation: Plan: 81-year-old female with PMH DM II, paroxysmal atrial fibrillation, HLD, depression, GERD presented to ER 12/22 with complaint of weakness for one day, unable to get out of chair. She is being managed for the following: #. Weakness likely secondary to underlying infection- PT recommended rehab #. Uncomplicated UTI- urine clx with klebsiella pneumoniae pansensitive except to macrobid. S/p rocephin for 3days and changed to Bactrim for 2 more days- monitor renal function and K while on bactrim. DC bactrim tomorrow. #. Uncontrolled DM-2 with hyperglycemia- BG 479 in ED with polydipsia and polyuria - A1c 15.7, cracking and fanning machine operator following - Hold home glipizide, continue lantus SSI- being managed by glycemic pharmacist #. PAF- in NSR. Continue amiodarone, Eliquis, metoprolol tartrate #. Elevated trop- mild, no chest pain, no acute ischemic changes. DVT ppx- eliquis Dispo- PT recommended rehab- pending placement Admission and Anticipated Discharge Date Admission Date: December 22, 2021 Subjective Patient seen and examined at bedside as a follow-up for weakness, UTI, paroxysmal A. fib. Patient was lying in bed, on room air, NAD, no new acute events overnight. Patient denies having any bowel movement since last 7-8 days, patient taking miralax, no belly pain. Increasing bowel regimen. Communicated with RN. Patient reports eating okay, denies fever/headache/chills/chest pain/palpitations/belly pain/other review of symptoms. Physical Exam Physical Exam: GENERAL: Alert and oriented x3. NAD, on RA. HEENT: No pallor, no icterus. Pupils equal, round and reactive to light. Oral mucosa moist. NECK: No JVD, no neck masses. HEART: S1 and S2 heard. Regular rate and rhythm. No murmur, no gallop. RESPIRATORY SYSTEM: Normal AP diameter. No accessory muscle use. No wheezing, no crackles. ABDOMEN: Soft, bowel sounds present, nontender, no distention. CENTRAL NERVOUS SYSTEM: No facial droop. Speech is clear. Obeys simple commands. Moves extremities. EXTREMITIES: No edema, no erythema seen. Results & Data Results & Data ([facility]) Vital Signs (Past 12 Hours) Vital Signs Temp Pulse Resp BP BP Pulse Ox 12/27/21 11:18 36.8 C 81 19 119/74 95 12/27/21 07:30 36.6 C 66 18 130/76 98
[2021-12-27] MEDS: SENNA 8.6 MG TAB PO SCH (17:02)
[2021-12-27] MEDS: INSULIN GLARGINE SOLOSTAR 100 UNITS/ML 3 ML PEN SC SCH (17:23)
[2021-12-27] MEDS: MIRTAZAPINE TAB 15 MG TAB PO SCH (20:04)
[2021-12-27] MEDS: DOCUSATE SODIUM 100 MG CAP PO SCH (20:06)
[2021-12-27] MEDS: ACETAMINOPHEN 325 MG TAB PO PRN (20:22)
[2021-12-28 07:16] LABS: BUN Creatinine Ratio 20.5 (10-20); Calcium 9.4 mg/dl (8.5-10.1); Creatinine Clr Calc Pharmacy 56.5 ml/min; Est GFR (African American) 88.3 ml/min; Est GFR (Non-African American) 76.2 ml/min; Potassium 4.6 mmol/L (3.5-5.1)
[2021-12-28] MEDS: ATORVASTATIN 10 MG TAB PO SCH (08:11)
[2021-12-28] MEDS: CHOLECALCIFEROL 1,000 UNITS 25 MCG TAB PO SCH (08:11)
[2021-12-28] MEDS: POTASSIUM CHLORIDE CRTAB 20 MEQ TABCR PO SCH (08:11)
[2021-12-28] MEDS: AMIODARONE 200 MG TAB PO SCH (08:11)
[2021-12-28] MEDS: FERROUS SULFATE 325 MG TAB PO SCH (08:11)
[2021-12-28] MEDS: ADVANCED PROBIOTIC 1250 MG CAPSULE PO SCH (08:12)
[2021-12-28] MEDS: MAGNESIUM OXIDE 400 MG TAB PO SCH (08:12)
[2021-12-28] MEDS: ASCORBIC ACID 500 MG TAB PO SCH (08:12)
[2021-12-28] MEDS: METOPROLOL TARTRATE 25 MG TAB PO SCH ×2 (08:13→20:10)
[2021-12-28] MEDS: APIXABAN 5 MG TABLET PO SCH ×2 (08:13→20:10)
[2021-12-28] MEDS: SULFAMETHOXAZOLE/TRIMETHOPRIM DS 800/160MG TAB PO SCH (08:13)
[2021-12-28] MEDS: DOCUSATE SODIUM 100 MG CAP PO SCH ×2 (08:14→20:11)
[2021-12-28] MEDS: INSULIN ASPART PER UNIT SC SCH ×4 (08:14→21:17)
[2021-12-28] MEDS: SENNA 8.6 MG TAB PO SCH (08:15)
[2021-12-28] MEDS ORDERED: MINERAL OIL ENEMA 133 ML BTL PR ONE (10:36)
[2021-12-28] MEDS ORDERED: LACTULOSE SYRUP 20 GM/30 ML UDC PO ONE (15:45)
--- NOTE | 2021-12-28 16:52 | Hospitalist Progress Note ---
Date of Service December 28, 2021 Assessment & Plan (1) Weakness: (2) UTI (urinary tract infection): (3) Diabetes mellitus, type 2: (4) Hyperglycemia: (5) Elevated troponin: (6) Paroxysmal atrial fibrillation: Plan: 81-year-old female with PMH DM II, paroxysmal atrial fibrillation, HLD, depression, GERD presented to ER 12/22 with complaint of weakness for one day, unable to get out of chair. She is being managed for the following: #. Weakness likely secondary to underlying infection- PT recommended rehab #. Uncomplicated UTI- urine clx with klebsiella pneumoniae pansensitive except to macrobid. S/p rocephin for 3days and changed to Bactrim for 2 more days- monitor renal function and K while on bactrim. DCd bactrim 5 am. #. Uncontrolled DM-2 with hyperglycemia- BG 479 in ED with polydipsia and polyuria - A1c 15.7, wellness educator following - Hold home glipizide, continue lantus SSI- being managed by glycemic pharmacist #. PAF- in NSR. Continue amiodarone, Eliquis, metoprolol tartrate #. Elevated trop- mild, no chest pain, no acute ischemic changes. DVT ppx- eliquis Dispo- PT recommended rehab- pending placement. Might benefit from re-eval for determining home vs placement. Admission and Anticipated Discharge Date Admission Date: December 22, 2021 Subjective Patient seen and examined at bedside as a follow-up for weakness, UTI, paroxysmal A. fib. Patient was lying in bed, on room air, NAD, no new acute events overnight. Patient denies having any bowel movement since last 8-9 days, patient taking miralax, colace, no belly pain. Did enema x1, didn't hold. Will do lactulose x1, follow up on progress. Communicated with RN. Patient reports eating okay, denies fever/headache/chills/chest pain/palpitations/belly pain/other review of symptoms. Physical Exam Physical Exam: GENERAL: Alert and oriented x3. NAD, on RA. HEENT: No pallor, no icterus. Pupils equal, round and reactive to light. Oral mucosa moist. NECK: No JVD, no neck masses. HEART: S1 and S2 heard. Regular rate and rhythm. No murmur, no gallop. RESPIRATORY SYSTEM: Normal AP diameter. No accessory muscle use. No wheezing, no crackles. ABDOMEN: Soft, bowel sounds present, nontender, no distention. CENTRAL NERVOUS SYSTEM: No facial droop. Speech is clear. Obeys simple commands. Moves extremities. EXTREMITIES: No edema, no erythema seen. Results & Data Results & Data ([facility]) Vital Signs (Past 12 Hours) Vital Signs Temp Pulse Resp BP BP Pulse Ox 12/28/21 14:58 37.3 C 70 18 111/68 97 12/28/21 07:14 36.7 C 57 L 18 119/75 98
[2021-12-28] MEDS: INSULIN GLARGINE SOLOSTAR 100 UNITS/ML 3 ML PEN SC SCH (18:03)
[2021-12-28] MEDS: MIRTAZAPINE TAB 15 MG TAB PO SCH (20:10)
[2021-12-29] MEDS: INSULIN ASPART PER UNIT SC SCH ×4 (07:59→19:37)
[2021-12-29] MEDS: ADVANCED PROBIOTIC 1250 MG CAPSULE PO SCH (08:04)
[2021-12-29] MEDS: AMIODARONE 200 MG TAB PO SCH (08:04)
[2021-12-29] MEDS: CHOLECALCIFEROL 1,000 UNITS 25 MCG TAB PO SCH (08:04)
[2021-12-29] MEDS: MAGNESIUM OXIDE 400 MG TAB PO SCH (08:04)
[2021-12-29] MEDS: ATORVASTATIN 10 MG TAB PO SCH (08:04)
[2021-12-29] MEDS: POTASSIUM CHLORIDE CRTAB 20 MEQ TABCR PO SCH (08:04)
[2021-12-29] MEDS: SENNA 8.6 MG TAB PO SCH (08:05)
[2021-12-29] MEDS: ASCORBIC ACID 500 MG TAB PO SCH (08:05)
[2021-12-29] MEDS: APIXABAN 5 MG TABLET PO SCH ×2 (08:05→19:38)
[2021-12-29] MEDS: DOCUSATE SODIUM 100 MG CAP PO SCH (08:05)
[2021-12-29] MEDS: FERROUS SULFATE 325 MG TAB PO SCH (08:05)
[2021-12-29] MEDS: METOPROLOL TARTRATE 25 MG TAB PO SCH ×2 (08:06→19:39)
[2021-12-29] MEDS ORDERED: COVID-19 VAC,AD26(JANSSEN)/PF 0.5 ML SYR IM ONE (14:34)
--- NOTE | 2021-12-29 16:52 | Hospitalist Progress Note ---
Date of Service December 29, 2021 Assessment & Plan (1) Weakness: (2) UTI (urinary tract infection): (3) Diabetes mellitus, type 2: (4) Hyperglycemia: (5) Elevated troponin: (6) Paroxysmal atrial fibrillation: Plan: 81-year-old female with PMH DM II, paroxysmal atrial fibrillation, HLD, depression, GERD presented to ER 12/22 with complaint of weakness for one day, unable to get out of chair. She is being managed for the following: #. Weakness likely secondary to underlying infection- PT recommended rehab #. Uncomplicated UTI- urine clx with klebsiella pneumoniae pansensitive except to macrobid. S/p rocephin for 3days and changed to Bactrim for 2 more days- DCd bactrim 5/30 am. #. Uncontrolled DM-2 with hyperglycemia- BG 479 in ED with polydipsia and p olyuria - A1c 15.7, certified adapted physical educator following - Hold home glipizide, continue lantus SSI- being managed by glycemic pharmacist #. PAF- in NSR. Continue amiodarone, Eliquis, metoprolol tartrate #. Elevated trop- mild, no chest pain, no acute ischemic changes. DVT ppx- eliquis Dispo- PT recommended rehab- pending placement. PT/OT re-eval recs is placement. CM to assist w/ DC planning. Admission and Anticipated Discharge Date Admission Date: December 22, 2021 Subjective Patient seen and examined at bedside as a follow-up for weakness, UTI, paroxysmal A. fib. Patient was lying in bed, on room air, NAD, no new acute events overnight. Patient finally had a BM today, c/w bowel regimen. Patient reports eating okay, denies fever/headache/chills/chest pain/palpitations/belly pain/other review of symptoms. Physical Exam Physical Exam: GENERAL: Alert and oriented x3. NAD, on RA. HEENT: No pallor, no icterus. Pupils equal, round and reactive to light. Oral mucosa moist. NECK: No JVD, no neck masses. HEART: S1 and S2 heard. Regular rate and rhythm. No murmur, no gallop. RESPIRATORY SYSTEM: Normal AP diameter. No accessory muscle use. No wheezing, no crackles. ABDOMEN: Soft, bowel sounds present, nontender, no distention. CENTRAL NERVOUS SYSTEM: No facial droop. Speech is clear. Obeys simple commands. Moves extremities. EXTREMITIES: No edema, no erythema seen. Results & Data Results & Data ([facility]) Vital Signs (Past 12 Hours) Vital Signs Temp Pulse Resp BP BP Pulse Ox 12/29/21 14:47 36.3 C L 66 20 118/75 97 12/29/21 07:34 36.6 C 54 L 18 98/60 L 96
[2021-12-29] MEDS: INSULIN GLARGINE SOLOSTAR 100 UNITS/ML 3 ML PEN SC SCH (17:26)
[2021-12-29] MEDS: MIRTAZAPINE TAB 15 MG TAB PO SCH (19:42)
[2021-12-29] MEDS: ACETAMINOPHEN 325 MG TAB PO PRN (21:20)
[2021-12-30] MEDS: INSULIN ASPART PER UNIT SC SCH ×4 (08:29→21:16)
[2021-12-30] MEDS: METOPROLOL TARTRATE 25 MG TAB PO SCH ×2 (08:30→21:27)
[2021-12-30] MEDS: ADVANCED PROBIOTIC 1250 MG CAPSULE PO SCH (08:30)
[2021-12-30] MEDS: APIXABAN 5 MG TABLET PO SCH ×2 (08:30→21:15)
[2021-12-30] MEDS: POTASSIUM CHLORIDE CRTAB 20 MEQ TABCR PO SCH (08:30)
[2021-12-30] MEDS: CHOLECALCIFEROL 1,000 UNITS 25 MCG TAB PO SCH (08:31)
[2021-12-30] MEDS: AMIODARONE 200 MG TAB PO SCH (08:31)
[2021-12-30] MEDS: FERROUS SULFATE 325 MG TAB PO SCH (08:31)
[2021-12-30] MEDS: ATORVASTATIN 10 MG TAB PO SCH (08:31)
[2021-12-30] MEDS: ASCORBIC ACID 500 MG TAB PO SCH (08:32)
[2021-12-30] MEDS: SENNA 8.6 MG TAB PO SCH (08:32)
[2021-12-30] MEDS: MAGNESIUM OXIDE 400 MG TAB PO SCH (08:32)
--- NOTE | 2021-12-30 14:35 | Pharmacy Report ---
Pharmacy Glycemic Short Note 2 - Date of Service December 30, 2021 - Glycemic Short BSG Results (Last 24 hours): 12/29/21 12/29/21 12/30/21 16:41 19:35 07:38 POC Glucose 188 H 230 H 98 12/30/21 11:25 POC Glucose 185 H OUTPATIENT ANTIDIABETIC REGIMEN: * Glipizide 10 mg PO BID * HbA1c = 15.7% ASSESSMENT: 12/30/21: * BSGs have been fairly stable for the past few days, but tend to trend up throughout the day. * Novolog parameters adjusted to provide additional carb coverage. * No further changes at this time. 12/27 * Lantus was increased yesterday. Fasting BSG reasonable, suggesting that La ntus dose is appropriate. * Novolog parameters tightened this morning d/t daytime hyperglycemia trend. * Will continue to follow and adjust as indicated. 12/25 * Patient received total of 78 units of insulin yesterday, of which 25 units were basal * Parameters for novolog tightened and BSGs improving much more * Fasting BSG 122 mg/dL - continue same basal, possibly dose with dinner * Continue same CF/CR for now 12/24 * Patient received total of 48 units of insulin yesterday, of which 20 units were basal * Fasting BSG 188 mg/dL - plan to titrate up to 25 units of basal for tonight (stress of 2 dosing) * Lunch BSG trending upward, tightened CR - may have tighter parameter for breakfast tomorrow AM 12/23 * 81 yo F admitted yesterday secondary to weakness. Pharmacy has been consulted to assist with inpatient glycemic management. Patient is known to our service. HbA1c from today is 15.7% which places patient at an extremely high risk for both macro- and microvascular complications from diabetes. She has refused insulin at home in the past. Compliance and cost is an issue. Currently, only taking Glipizide at home. * Significant hyperglycemia upon admission of 387 mg/dL. Received a 7 unit IV insulin bolus, 20 units of Lantus and 20 units of Novolog overnight. * Fasting BSG was 123 mg/dL this AM. Will hold AM Lantus. Convert to once daily Lantus at HS. Dose may need increased as patient required 30-40 units of basal insulin during last admission. * Continue with current Novolog parameters which are based upon weight/stress of 3. Last admission, patient had significant hyperglycemia at lunch requiring tighter Novolog coverage with breakfast only. Will monitor today and make changes as needed. PLAN FOR INPATIENT GLYCEMIC CONTROL: * Hold outpatient oral diabetes medications * Basal insulin * Lantus 30 units SQ HS * Bolus insulin * NovoLog per scale ACHS or Q6hrs while NPO * Goal Range: Low 110 mg/dL - High 140 mg/dL * Correction Factor: 12 mg/dL/unit * Nutritional / Prandial insulin per carb ratio of 1 unit per 2.5 grams CHO consumed
[2021-12-30] MEDS: INSULIN GLARGINE SOLOSTAR 100 UNITS/ML 3 ML PEN SC SCH (17:25)
--- NOTE | 2021-12-30 19:21 | Hospitalist Progress Note ---
Date of Service December 30, 2021 Assessment & Plan (1) Weakness: (2) UTI (urinary tract infection): (3) Diabetes mellitus, type 2: (4) Hyperglycemia: (5) Elevated troponin: (6) Paroxysmal atrial fibrillation: Plan: 81-year-old female with PMH DM II, paroxysmal atrial fibrillation, HLD, depression, GERD presented to ER 12/22 with complaint of weakness for one day, unable to get out of chair. She is being managed for the following: #. Weakness likely secondary to underlying infection- PT recommended rehab #. Uncomplicated UTI- urine clx with klebsiella pneumoniae pansensitive except to macrobid. S/p rocephin for 3days and changed to Bactrim for 2 more days- DCd bactrim 5/30 am. #. 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 PAF- in NSR. Continue amiodarone, Eliquis, metoprolol tartrate #. Elevated trop- mild, no chest pain, no acute ischemic changes. DVT ppx- eliquis Dispo- PT recommended rehab- pending placement. PT/OT re-eval recs is placement. CM to assist w/ DC planning. Admission and Anticipated Discharge Date Admission Date: December 22, 2021 Subjective Patient seen and examined at bedside as a follow-up for weakness, UTI, paroxysmal A. fib. Patient was lying in bed, on room air, NAD, no new acute events overnight. Patient had a BM yesterday, c/w bowel regimen. Patient reports eating okay, denies fever/headache/chills/chest pain/palpitations/belly pain/other review of symptoms. Physical Exam Physical Exam: GENERAL: Alert and oriented x3. NAD, on RA. HEENT: No pallor, no icterus. Pupils equal, round and reactive to light. Oral mucosa moist. NECK: No JVD, no neck masses. HEART: S1 and S2 heard. Regular rate and rhythm. No murmur, no gallop. RESPIRATORY SYSTEM: Normal AP diameter. No accessory muscle use. No wheezing, no crackles. ABDOMEN: Soft, bowel sounds present, nontender, no distention. CENTRAL NERVOUS SYSTEM: No facial droop. Speech is clear. Obeys simple commands. Moves extremities. EXTREMITIES: No edema, no erythema seen. Results & Data Results & Data ([facility]) Vital Signs (Past 12 Hours) Vital Signs Temp Pulse Pulse Resp BP Pulse Ox 12/30/21 16:56 36.9 C 58 L 18 107/66 95 12/30/21 10:45 36.6 C 58 L 18 122/66 94 12/30/21 07:42 36.8 C 56 L 18 118/70 95
[2021-12-30] MEDS: MIRTAZAPINE TAB 15 MG TAB PO SCH (21:18)
[2021-12-30] MEDS: ACETAMINOPHEN 325 MG TAB PO PRN (21:23)
[2021-12-31] MEDS: INSULIN ASPART PER UNIT SC SCH ×2 (08:15→11:59)
[2021-12-31] MEDS: ADVANCED PROBIOTIC 1250 MG CAPSULE PO SCH (08:20)
[2021-12-31] MEDS: POTASSIUM CHLORIDE CRTAB 20 MEQ TABCR PO SCH (08:20)
[2021-12-31] MEDS: FERROUS SULFATE 325 MG TAB PO SCH (08:20)
[2021-12-31] MEDS: CHOLECALCIFEROL 1,000 UNITS 25 MCG TAB PO SCH (08:20)
[2021-12-31] MEDS: MAGNESIUM OXIDE 400 MG TAB PO SCH (08:20)
[2021-12-31] MEDS: ATORVASTATIN 10 MG TAB PO SCH (08:20)
[2021-12-31] MEDS: AMIODARONE 200 MG TAB PO SCH (08:21)
[2021-12-31] MEDS: ASCORBIC ACID 500 MG TAB PO SCH (08:21)
[2021-12-31] MEDS: APIXABAN 5 MG TABLET PO SCH (08:22)
[2021-12-31] MEDS: METOPROLOL TARTRATE 25 MG TAB PO SCH (08:22)
--- NOTE | 2021-12-31 12:07 | Discharge Summary ---
Date of Service December 31, 2021 Admission HPI Per Admitting Provider Patient is 81-year-old female with PMH DM II, paroxysmal atrial fibrillation, HLD, depression, GERD presented to ER with complaint of weakness today. Patient reports today was sitting in the living room in chair and she tried to get up and was unable to get up out of chair. She reports she typically does not sit in the chair in her living room. She uses a walker to ambulate at baseline. Patient states since she was unable to get up out of chair she lowered herself to the ground and crawled to her bedroom to get to the phone to call for assistance to get up. EMS found that patient was hypoglycemic and transported patient to ER. Patient denies any fall. She reports the past couple days has had urinary frequency and increased thirst. She does not believe that she is taking anything for diabetes. She does not check her blood sugars regularly. Denies fever/chills, diaphoresis, N/V/D/C, JEFFRIES, dizziness, syncope, vision changes, neck pain, CP, SOB, orthopnea, palpitations, cough, sore throat, choking, otalgia, rhinorrhea, abdominal pain, paresthesias, extremity edema, rashes, dysuria, hematuria In ER patient afebrile, vital stable. No leukocytosis. Glucose 479. UA consistent with UTI. Admission Exam Per Admitting Provider General: no distress, overweight Head: normocephalic, atraumatic Eyes: PERRL, EOM's intact, conjunctiva non-injected, anicteric ENT: normal inspection external ears, nose, mucous membranes dry Neck: supple, trachea midline Lungs: clear, no respiratory distress, no wheezing/rhonchi/rales CV: RRR, no murmur, no pretibial edema Abd: protuberant, normal BS, soft, non-tender Ext: no cyanosis, no calf tenderness Neuro: A&O x 3, no focal deficits noted, normal affect Skin: warm, dry Principal Diagnosis Weakness UTI Discharge Exam GENERAL: Alert and oriented x3. NAD, on RA. HEENT: No pallor, no icterus. Pupils equal, round and reactive to light. Oral mucosa moist. NECK: No JVD, no neck masses. HEART: S1 and S2 heard. Regular rate and rhythm. No murmur, no gallop. RESPIRATORY SYSTEM: Normal AP diameter. No accessory muscle use. No wheezing, no crackles. ABDOMEN: Soft, bowel sounds present, nontender, no distention. CENTRAL NERVOUS SYSTEM: No facial droop. Speech is clear. Obeys simple commands. Moves extremities. EXTREMITIES: No edema, no erythema seen. Discharge Data Allergies Allergy/AdvReac Type Severity Reaction Status Date / Time codeine AdvReac Intermediate VOMITING Verified 12/22/21 18:21 Consultations 12/22/21 17:38 ED Decision to Admit Stat Diabetes Follow up Diabetes Follow-up Needed for HgbA1c >9% Hospital Course (1) Weakness: (2) UTI (urinary tract infection): (3) Diabetes mellitus, type 2: (4) Hyperglycemia: (5) Elevated troponin: (6) Paroxysmal atrial fibrillation: 81-year-old female with PMH DM II, paroxysmal atrial fibrillation, HLD, depression, GERD presented to ER 12/22 with complaint of weakness for one day, unable to get out of chair. She was managed for the following: #. Weakness likely secondary to underlying infection- PT recommended rehab #. Uncomplicated UTI- urine clx with klebsiella pneumoniae pansensitive except to macrobid. S/p rocephin for 3days and changed to Bactrim for 2 more days- DCd bactrim 5/30 am. #. 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 - Home glipizide held while inpatient, continue lantus SSI- being managed by glycemic pharmacist -Patient is very close follow-up with diabetic clinic for close monitoring of her diabetes and appropriate management as A1c is very elevated this admission. Patient counseled multiple times. -Diabetic medications changed as per instruction section. see below. #. PAF- in NSR. Continue amiodarone, Eliquis, metoprolol tartrate #. Elevated trop- mild, no chest pain, no acute ischemic changes. DVT ppx- eliquis #. Patient had a fit of cough today morning, likely due to aspiration of patient's own saliva [patient feels so], patient does not have any trouble swallowing food, per RN she was hemodynamically stable around the time with no desaturation. Lung exams were normal, patient was vitally stable prior to discharge, patient made aware to closely watch if there is any increasing mucus or worsening cough down the road, currently no need for any antibiotic. Patient to follow-up with primary care physician within a week time. Patient being discharged to residential with following instruction at the point of discharge: Follow-up with your primary care physician within a week time. Get your blood work CBC and BMP done in a week time and have the results forwarded to your primary care physician. Follow-up with your diabetic clinic very closely as an outpatient, your A1c while in hospital was 15.7 which indicates poor diabetes control. Your diabetic medication has been modified while in hospital, your glipizide has been discontinued: Lantus 30 units HS + Novolog 10 units with meals (hold if eating <50%). Start metformin XR 500 mg daily and titrate (for this you need to visit your PCP first) as needed. Take your medications as prescribed. Total Time Total Time Spent Total Time Spent (In Minutes): 35 Discharge Plan Discharge Items Patient Disposition: Transfer [facility] Reason For Visit: WEAKNESS, UTI Discharge Diagnosis: Weakness UTI Uncontrolled DM type II Condition on Discharge: Fair Activity: Resume your previous activity Non-emergency contact: Primary Care Provider Call non-emergency contact if: you have any medication questions, your symptoms worsen and your temperature is above 101 Follow-up/Referrals: Josh Benites, DO [Primary Care Provider] - Diet: Carb Consistent or DM2 Addtl Attending Provider Instructions: Follow-up with your primary care physician within a week time. Get your blood work CBC and BMP done in a week time and have the results forwarded to your primary care physician. Follow-up with your diabetic clinic very closely as an outpatient, your A1c while in hospital was 15.7 which indicates poor diabetes control. Your diabetic medication has been modified while in hospital, your glipizide has been discontinued: Lantus 30 units HS + Novolog 10 units with meals (hold if eating <50%). Start metformin XR 500 mg daily and titrate (for this you need to visit your PCP first) as needed. Take your medications as prescribed. Pending Studies at Discharge: No Stand-Alone Forms: [facility] Skilled Items Patient informed of condition?: Yes DNR: Yes Discharge Level of Care: Skilled Communicable Disease: No Discharge Prognosis: Stable Lines: None Urinary Catheter: No Medications and DC Order Prescriptions: New insulin aspart U-100 [Novolog U-100 Insulin aspart] 100 unit/mL Solution 10 unit SC ACHS Qty: 10 RF: 0 insulin glargine [Lantus Solostar U-100 Insulin] 100 unit/mL (3 mL) Insulin Pen 30 unit SC DAILY@1800 Qty: 15 RF: 0 metformin 500 mg tablet extended release 24 hr 500 mg PO DAILY Qty: 30 RF: 0 Continued cholecalciferol (vitamin D3) 50 mcg (2,000 unit) capsule 2,000 unit PO DAILY RF: 0 acetaminophen 325 mg tablet 650 mg PO Q4H PRN (Reason: fever or pain) RF: 0 Eliquis 5 mg Tablet 5 mg PO BID Qty: 20 RF: 0 Advanced Probiotic 625 mg (10 billion cell) Capsule 2 cap PO DAILY Qty: 20 RF: 0 magnesium oxide 400 mg (241.3 mg magnesium) Tablet 400 mg PO QAM Qty: 20 RF: 0 mirtazapine 30 mg tablet 30 mg PO HS Qty: 20 RF: 0 hydrocodone-acetaminophen 5-325 mg tablet 1 tab PO Q6H PRN (Reason: pain) Qty: 30 RF: 0 diclofenac sodium 1 % Gel 1 g TOPICAL BID PRN (Reason: Pain) RF: 0 potassium chloride 10 mEq Capsule, Extended Release 20 meq PO DAILY RF: 0 atorvastatin 10 mg Tablet 10 mg PO DAILY RF: 0 ondansetron HCl [Zofran] 4 mg Tablet 4 mg PO Q6H PRN (Reason: NAUSEA/VOMITING) RF: 0 docusate sodium 100 mg Capsule 100 mg PO BID PRN (Reason: Constipation) RF: 0 amiodarone 100 mg Tablet 100 mg PO DAILY RF: 0 metoprolol tartrate 25 mg Tablet 25 mg PO BID RF: 0 Vitron-C 65 mg iron- 125 mg Tablet,Delayed Release (Dr/Ec) 1 tab PO DAILY RF: 0 Discontinued glipizide 10 mg tablet 10 mg PO BID RF: 0 Discharge Orders: Discharge Order (Routine); Ordered 12/31/21 Ordered By: Guillermo Garcia Admission Data Admit Date/Time: 12/22/21 17:59 Attending Provider: Guillermo Garcia Admit Provider: Jeevan Hernandez Primary Care Provider: Josh Benites Other Providers: Carlo San at [place] ; Jeevan Hernandez
== END 2021-12-31 12:29 | DRG 690 ==
LOC: ED 14:10 → 2W 17:59 → SUATTDRO 17:59 → 2W 21:36

== ENCOUNTER 2022-07-27 12:53 | Inpatient (IN) ==
[2022-07-27] MEDS ORDERED: SODIUM CHLORIDE 0.9% 1000ML 1,000 ML IV ONE (12:55)
--- NOTE | 2022-07-27 13:18 | XRay Report ---
SINGLE VIEW CHEST CLINICAL HISTORY: Found down. FINDINGS: An AP, portable, supine chest radiograph is compared to study dated 12/22/2021. The heart is enlarged noting atherosclerotic calcification of the thoracic aorta. The pulmonary vasculature is no ncongested. Chronic interstitial thickening is similar to previous. There is mild bibasilar scarring/ atelectasis. No airspace consolidation or large pleural effusion is identified. No pneumothorax is se en. The skeletal structures are osteopenic. The bony thorax is grossly intact. IMPRESSION: Cardiomegaly with no acute cardiopulmonary abnormality identified. ACT 112: Negative or not required by law. Electronically signed by: Jeronimo Orosco M.D. 07/27/2022 1:16 PM
--- NOTE | 2022-07-27 13:25 | XRay Report ---
XR pelvis 1-2V routine CLINICAL HISTORY: found down TECHNIQUE: A single frontal view of the pelvis was obtained. Comparison: Comparison is made to pelvic radiograph 09/09/2020 FINDINGS: Of note, the top of the iliac crests are not within the field of view. There is no evidence of an acu te fracture. Degenerative changes are seen in the hip joints and lumbar spine. No soft tissue abnorm ality is seen. IMPRESSION: Degenerative changes are seen. No pelvic ring fractures are visualized. ACT 112: Negative or not required by law. Electronically signed by: Preston Carrasquillo M.D. 07/27/2022 1:24 PM
[2022-07-27 13:31] LABS: HCO3 VBG 11 mmol/L; PCO2 VBG 35 mmHg (38-50); PO2 VBG 45 mmHg; pH VBG 7.12 (7.36-7.41)
[2022-07-27 13:33] LABS: iSTAT Blood Urea Nitrogen 64 mg/dl (7-18); iSTAT Carbon Dioxide 13 mmol/L (24-31); iSTAT Chloride 102 mmol/L (101-112); iSTAT Creatinine 2.3 mg/dl (0.6-1.3); iSTAT Glucose > 700 mg/dl (70-99); iSTAT Hematocrit 39 % (37-47); iSTAT Hemoglobin 13.3 g/dl (12.0-16.0); iSTAT Ionized Calcium 1.08 mmol/l (1.12-1.32); iSTAT Potassium 4.6 mmol/L (3.3-5.0); iSTAT Sodium 133 mmol/L (135-144)
[2022-07-27 13:51] LABS: Appearance Urine Turbid (Clear); Bilirubin Urine Negative (Negative); Blood Urine 3+ (Negative); Color Urine Yellow; Epithelial Cell Urine Auto 20-30 /lpf (0-5); Glucose Urine UA 2+ (Negative); Ketones Urine 1+ (Negative); Leukocyte Esterase Urine 3+ (Negative); Nitrite Urine Negative (Negative); Protein Urine 2+ (Negative); Specific Gravity Urine 1.018 (1.000-1.030); Urobilinogen Urine Negative (Negative); WBC Urine Automated >30 /hpf (0-5)
--- NOTE | 2022-07-27 13:53 | Emergency Department Note ---
History of Present Illness General Chief complaint: Altered Mental Status Time Seen by Provider: 07/27/22 12:55 Source: EMS Mode of arrival: EMS History of Present Illness Provider complaint: Altered mental status 82-year-old female presents via EMS for altered mental status. Per EMS, the patient's family called for wellness checks after they had not heard from her for the last 2 days. Police arrived at the patient's home and found the patient lying facedown in her own vomitus feces and around rotting food. EMS was called and brought the patient to the emergency department. Home Medications Medication Instructions Recorded Confirmed Type apixaban 5 mg tablet (Eliquis) 5 mg PO BID #20 tabs 09/19/20 07/27/22 Rx magnesium oxide 400 mg (241.3 mg 400 mg PO QAM #20 tabs 09/19/20 07/27/22 Rx magnesium) tablet mirtazapine 30 mg tablet 30 mg PO HS #20 tabs 09/19/20 07/27/22 Rx hydrocodone 5 mg-acetaminophen 325 1 tab PO Q6H PRN pain #30 tabs 09/20/20 07/27/22 Rx mg tablet acetaminophen 325 mg tablet 650 mg PO Q4H PRN fever or pain 10/02/20 07/27/22 History cholecalciferol (vitamin D3) 50 2,000 unit PO DAILY 10/02/20 07/27/22 History mcg (2,000 unit) capsule diclofenac sodium 1 % topical gel 1 g topical BID PRN Pain 02/19/21 07/27/22 History amiodarone 100 mg tablet 100 mg PO DAILY 12/22/21 07/27/22 History atorvastatin 10 mg tablet 10 mg PO DAILY 12/22/21 07/27/22 History docusate sodium 100 mg capsule 100 mg PO BID PRN Constipation 12/22/21 07/27/22 History iron,carbonyl 65 mg-vitamin C 125 1 tab PO DAILY 12/22/21 07/27/22 History mg tablet,delayed release (Vitron-C) metoprolol tartrate 25 mg tablet 25 mg PO BID 12/22/21 07/27/22 History ondansetron HCl 4 mg tablet 4 mg PO Q6H PRN NAUSEA/VOMITING 12/22/21 07/27/22 History potassium chloride 10 mEq 20 meq PO DAILY 12/22/21 07/27/22 History capsule,extended release insulin glargine 100 unit/mL (3 30 unit (0.3 mL) SC DAILY@1800 #15 12/31/21 07/27/22 Rx mL) subcutaneous pen (Lantus mL Solostar U-100 Insulin) metformin 500 mg tablet,extended 500 mg PO DAILY #30 tabs 12/31/21 07/27/22 Rx release 24 hr Lactobacillus acidophilus 10,000 mmu cells PO DAILY 07/27/22 07/27/22 History insulin aspart U-100 100 unit/mL 45 unit SC TIDM 07/27/22 07/27/22 History subcutaneous solution (Novolog U-100 Insulin aspart) insulin degludec 200 unit/mL (3 160 unit subcut DAILY 07/27/22 07/27/22 History mL) subcutaneous pen (Tresiba FlexTouch U-200 insulin) polyethylene glycol 3350 17 17 g PO DAILY PRN Constipation 07/27/22 07/27/22 History gram/dose oral powder (Miralax) Allergies Allergy/AdvReac Type Severity Reaction Status Date / Time codeine AdvReac Intermediate VOMITING Verified 07/27/22 15:09 Past Med/Surg History Medical History Atrial fibrillation Closed fibular fracture hx Compression fracture L3 Depression Diabetes mellitus, type 2 Fatty liver GERD (gastroesophageal reflux disease) Hyperlipidemia Paroxysmal atrial fibrillation Polyarthritis Surgical History H/O bilateral oophorectomy H/O: hysterectomy History of colonoscopy Family History Other Heart disease Social History Smoking Status: Unknown if ever smoked Second Hand Exposure: No; Hx Alcohol Use: No Hx Substance Use: No Preferred Language: [place] Citizen Communication Ability: Effective Svp Of Digital Required: No Beliefs That Will Affect Care: None marital status: / Current Living Situation: Alone Current Living Situation Comment: [facility] How many Children do You have: 2 Feels Safe at Home: Yes Assistive Devices: Walker Review of Systems Unobtainable due to cognitive status and Unobtainable due to reduced consciou sness Physical Exam Vital Signs Vital Signs - 24 hr 07/27/22 13:10 07/27/22 13:10 07/27/22 13:27 Temperature 30.3 C L Temperature Source Rectal Pulse Rate 85 Pulse Rate [Forehead] 96 H Respiratory Rate 20 20 Respiratory Effort / Characteristics Non-Labored Spontaneous Non-Labored Spontaneous Respiratory Depth Normal Normal Respiratory Pattern Regular Regular Blood Pressure Blood Pressure [Left Arm] 80/60 L Blood Pressure Mean Blood Pressure Mean [Left Arm] 66 Pulse Oximetry 97 98 96 Oxygen Delivery Method High Flow Nasal Cannula High Flow Nasal Cannula Nasal Cannula Oxygen Flow Rate 6 Fraction of Inspired Oxygen Sepsis Recent Fever Within 48 Hours No Sepsis New/Unexplained Change in Mental Status No Sepsis Action Taken by Nursing No Action Required 07/27/22 13:55 07/27/22 13:57 07/27/22 13:19 Temperature 29.8 C L Temperature Source Pulse Rate 90 96 H Pulse Rate [Forehead] 80 Respiratory Rate 20 20 20 Respiratory Effort / Characteristics Spontaneous Respiratory Depth Respiratory Pattern Blood Pressure 50/32 L Blood Pressure [Left Arm] Blood Pressure Mean 38 Blood Pressure Mean [Left Arm] Pulse Oximetry 100 100 99 Oxygen Delivery Method Nasal Cannula Nasal Cannula High Flow Nasal Cannula Oxygen Flow Rate 5 4 25 Fraction of Inspired Oxygen 45 Sepsis Recent Fever Within 48 Hours Sepsis New/Unexplained Change in Mental Status Sepsis Action Taken by Nursing 07/27/22 14:01 07/27/22 14:10 07/27/22 14:15 Temperature 29.8 C L 29.8 C L 29.8 C L Temperature Source Kraus Cath ( Temp Sensing) Pulse Rate 85 71 Pulse Rate [Forehead] Respiratory Rate 20 20 Respiratory Effort / Characteristics Respiratory Depth Respiratory Pattern Blood Pressure 77/55 L 87/53 L Blood Pressure [Left Arm] Blood Pressure Mean 62 64 Blood Pressure Mean [Left Arm] Pulse Oximetry 100 99 Oxygen Delivery Method Nasal Cannula Nasal Cannula Oxygen Flow Rate 3 3 Fraction of Inspired Oxygen Sepsis Recent Fever Within 48 Hours Sepsis New/Unexplained Change in Mental Status Sepsis Action Taken by Nursing 07/27/22 14:20 Temperature 29.8 C L Temperature Source Pulse Rate 70 Pulse Rate [Forehead] Respiratory Rate 20 Respiratory Effort / Characteristics Respiratory Depth Respiratory Pattern Blood Pressure 74/55 L Blood Pressure [Left Arm] Blood Pressure Mean 61 Blood Pressure Mean [Left Arm] Pulse Oximetry 98 Oxygen Delivery Method Nasal Cannula Oxygen Flow Rate 3 Fraction of Inspired Oxygen Sepsis Recent Fever Within 48 Hours Sepsis New/Unexplained Change in Mental Status Sepsis Action Taken by Nursing Physical Exam GENERAL: Patient is extremely ill-appearing. EYES: Pupils are equal, round, and reactive to light. No scleral icterus. CV: Tachycardic rate, regular rhythm, normal heart sounds and intact distal pulses. There is no peripheral edema. Palpable radial pulses bue. PULM/CHEST: Mild rhonchi bilaterally. ABD: The abdomen is soft. MUSC/SKEL: Pelvis stable. No step-offs in the C, T, or L-spine. NEURO:GCS eye subscore is 4. GCS verbal subscore is 2. GCS motor subscore is 5. SKIN: Patient is cold to touch. Abrasions over the bilateral knees. Course Course 1255: The patient was evaluated in room A1. A complete history and physical exam was performed Cardiac monitoring: An order was placed for continuous cardiac monitoring. The monitor shows a rate of 100 with atrial fibrillation rhythm On arrival in the emergency department the patient was found to be hypothermic, hypotensive and hypoxic. Patient was switched from EMS nasal cannula to high flow oxygen. Patient's Accu-Chek is too high to read. 2 L normal saline ordered for the patient wide open. I-STAT shows a creatinine of 2.8 and a glucose greater than 700. We will continue to hydrate the patient to help with her hyperglycemia and hypertension and when her blood pressure is stabilized she will be taken over for CT scans. Yolanda castellon ordered for the patient. External medical records were reviewed and it shows that the patient is an insulin-dependent diabetic and does have a history of atrial fibrillation and is on Eliquis. External medical records also show that the patient's last 2 admissions to the hospital have been to the [facility] hospitalist team and the patient has been DNR/DNI. 1350: Blood pressure improving with IV fluids. Patient still hypotensive. Switch to warm fluids through the warmer as he is still hypothermic also. CT of the head reviewed by me shows no ICH. It is thought that the patient is probably suffering from severe DKA or HHS. We will continue IV fluid repletion. Kraus catheter was placed and appeared extremely cloudy. Patient be treated empirically for sepsis with cefepime 2 g IV. 1500: Blood pressure and patient's temperature improving although both still lo w. Patient's oxygen has been being able to be titrated down from high flow nasal cannula to supplemental oxygen via nasal cannula. Imaging shows no traumatic injury however it does show possible pyelonephritis. Patient appears to be acidotic. Creatinine is elevated. Troponin is elevated. Glucose is greater than 800. Lactic acid elevated at 3.4. Serum osmolality elevated at 356. Potassium 4.7. Creatinine 2.46. Anion gap elevated 27. Patient will be started on insulin drip 0.1 units/kg/h for DKA. Discussed case with ICU Dr. Garcia who agrees to keep the patient in the ICU and there admitted. [facility] Bonilla and she stated to admit to Dr. Perry. Patient will have received a total of 4 L IV fluid bolus and normal saline is at 125 an hour. Spoke with the patient's daughter Alix Licea [phone]. She states that she lives in [place] and has been unable to speak with her mother for the last 2 days so she called the police to do a wellness check on her. She confirms that the patient is DNR/DNI and agrees with the plan to admit the patient to the ICU. The number listed for her above is her cell phone and she states she can be reached anytime to discuss her mother's care. 1630: Vital signs improved. Blood pressure normalized. Heart rate normalized. Patient down to 3 L nasal cannula. Temperature is improving. Patient is now more alert able to converse. Awaiting ICU bed for the patient to be sent there. Administered Medications Insulin Human Regular 250 (units/ Sodium Chloride) 250 mls @ 8.2 mls/hr IV .Q24H [facility]; Protocol Stop: 08/26/22 14:59 Last Titration: 07/27/22 16:57 Dose: 8.2 units/hr, 8.2 mls/hr Documented By: KAYA Co-signed By: MATTEO Admin: 07/27/22 15:44 Dose: 6.8 units/hr, 6.8 mls/hr Documented By: KAYA Co-signed By: RANJANA Parenteral Electrolytes (Normosol-R) 1,000 mls @ 150 mls/hr IV .Q6H40M [facility] Stop: 08/26/22 14:59 Last Admin: 07/27/22 15:12 Dose: 150 mls/hr Documented By: GELY Potassium Chloride/Sodium Chloride (1/2 Nss + 20meq Kcl 1000ml) 20 meq in 1,000 mls @ 150 mls/hr IV .Q6H40M [facility]ITI Stop: 08/26/22 17:14 Last Admin: 07/27/22 17:31 Dose: 150 mls/hr Documented By: KAYA Insulin Aspart (Insulin Aspart Per Unit) 0 units SC ACHS TITI Stop: 08/26/22 16:29 Last Admin: 07/27/22 17:08 Dose: Not Given Documented By: KAYA Co-signed By: ASW Discontinued Medications Sodium Chloride (Nss 1000ml) 1,000 mls @ 999 mls/hr IV .Q1H1M ONE Stop: 07/27/22 13:55 Last Infusion: 07/27/22 14:12 Dose: 0 mls/hr Documented By: Admin: 07/27/22 13:19 Dose: 999 mls/hr Documented By: GELY Cefepime HCl (Maxipime) 2,000 mg in 20 mls @ 5 mls/min IV NOW STA; Protocol Stop: 07/27/22 14:04 Last Admin: 07/27/22 14:12 Dose: 5 mls/min Documented By: GELY Sodium Chloride (Nss 1000ml) 2,000 mls @ 999 mls/hr IV .Q2H1M ONE Stop: 07/27/22 16:03 Last Infusion: 07/27/22 15:11 Dose: 0 mls/hr Documented By: Admin: 07/27/22 14:09 Dose: 999 mls/hr Documented By: GELY Critical Care Time Critical Care Time: Yes Total Critical Care Time: 128 I have personally spent greater than 128 minutes of critical care time in the direct management of this patient. This includes bedside care, interpretation of diagnostic studies, and testing, discussion with consultants, patient, and family members, and other required patient management activities. This 128 minutes is in excess of all separately billable procedures. Medical Decision Making Laboratory Data Result diagrams: 07/27/22 13:29 07/27/22 15:58 Lab Results 07/27/22 07/27/22 07/27/22 Range/Units 13:10 13:16 13:21 WBC (4.8-10.8) K/ul RBC (3.93-5.22) M/uL Hgb (12.0-16.0) g/dl POC Hgb 13.3 (12.0-16.0) g/dl Hct (34.1-44.9) % POC Hct 39 (37-47) % MCV (80.0-100.0) fL MCH (25.0-34.0) pg MCHC (32.0-36.0) g/dL RDW Std Deviation (36.4-46.3) fL RDW Coeff of Jude (11.5-14.5) % Plt Count (130-400) K/uL MPV (9.4-12.3) fL Immature Gran % (Auto) % Neut % (Auto) % Lymph % (Auto) % Gray % (Auto) % Eos % (Auto) % Baso % (Auto) % Neut # (Auto) (1.4-6.5) K/uL Lymph # (Auto) (1.2-3.4) K/uL Gray # (Auto) (0.24-0.82) K/uL Eos # (Auto) (0-0.50) K/uL Baso # (Auto) (0-0.2) K/uL Immature Gran # (Auto) (0.00-0.02) K/uL Platelet Estimate (Normal) Echinocytes PT (9.0-12.0) Seconds INR (0.9-1.1) APTT (21.0-31.0) Seconds PTT Ratio Heparin Anti-Xa, LM Wt (< 0.10) IU/ML VBG pH 7.12 L (7.36-7.41) VBG pCO2 35 L (38-50) mmHg VBG pO2 45 mmHg VBG HCO3 11 mmol/L VBG O2 Saturation 65.0 % VBG Base Excess -17.0 mEq/L POC Sodium 133 L (135-144) mmol/L Sodium (136-145) mmol/L POC Potassium 4.6 (3.3-5.0) mmol/L Potassium (3.5-5.1) mmol/L POC Chloride 102 (101-112) mmol/L Chloride (98-107) mmol/L Carbon Dioxide (21-32) mmol/L POC Total CO2 13 L (24-31) mmol/L Anion Gap (3-11) POC Anion Gap 24.0 (16-25) mmol/L POC BUN 64 H (7-18) mg/dl BUN (6-23) mg/dl Creatinine (0.6-1.2) mg/dl POC Creatinine 2.3 H (0.6-1.3) mg/dl Est Cr Clr Drug Dosing Est GFR ( Amer) ml/min Est GFR (Non-Af Amer) ml/min BUN/Creatinine Ratio (10-20) Glucose (70-99(Fasting)) mg/dl POC Glucose > 600 H* (70-99) mg/dl POC Glucose (other) > 700 H* (70-99) mg/dl Osmolality (280-300) mOsm/kg Lactate (0.4-2.0) mmol/L Calcium (8.5-10.1) mg/dl POC Ioniz Calcium Sade 1.08 L (1.12-1.32) mmol/l Magnesium (1.7-2.4) mg/dl Total Bilirubin (0.2-1.0) mg/dl Direct Bilirubin (0-0.2) mg/dl AST (13-39) U/L ALT (7-52) U/L Alkaline Phosphatase (34-104) U/L Total Creatine Kinase (26-192) U/L Troponin I High Sens (0-14) pg/ml Total Protein (6.0-8.3) gm/dl Albumin (3.4-5.0) gm/dl Lipase (11-82) U/L Procalcitonin (0-0.5) ng/ml Urine Color Urine Appearance (Clear) Urine pH (4.5-7.5) Ur Specific [place] (1.000-1.030) Urine Protein (Negative) Urine Glucose (UA) (Negative) Urine Ketones (Negative) Urine Blood (Negative) Urine Nitrite (Negative) Urine Bilirubin (Negative) Urine Urobilinogen (Negative) Ur Leukocyte Esterase (Negative) Urine WBC (Auto) (0-5) /hpf Urine RBC (Auto) (0-4) /hpf U Hyaline Cast (Auto) (0-5) /lpf U Epithel Cells (Auto) (0-5) /lpf Urine Bacteria (Auto) (Negative) Urine Yeast Ethyl Alcohol mg/dL (<10.0) mg/dl SARS-CoV-2, RNA, NAAT (NEGATIVE) Blood Type Antibody Screen 07/27/22 07/27/22 07/27/22 Range/Units 13:28 13:28 13:29 WBC 12.36 H (4.8-10.8) K/ul RBC 4.36 (3.93-5.22) M/uL Hgb 12.0 (12.0-16.0) g/dl POC Hgb (12.0-16.0) g/dl Hct 38.7 (34.1-44.9) % POC Hct (37-47) % MCV 88.8 (80.0-100.0) fL MCH 27.5 (25.0-34.0) pg MCHC 31.0 L (32.0-36.0) g/dL RDW Std Deviation 46.0 (36.4-46.3) fL RDW Coeff of Jude 14.1 (11.5-14.5) % Plt Count 55 L (130-400) K/uL MPV 12.9 H (9.4-12.3) fL Immature Gran % (Auto) 1.0 % Neut % (Auto) 87.1 % Lymph % (Auto) 5.1 % Gray % (Auto) 6.2 % Eos % (Auto) 0.0 % Baso % (Auto) 0.6 % Neut # (Auto) 10.77 H (1.4-6.5) K/uL Lymph # (Auto) 0.63 L (1.2-3.4) K/uL Gray # (Auto) 0.77 (0.24-0.82) K/uL Eos # (Auto) 0.00 (0-0.50) K/uL Baso # (Auto) 0.07 (0-0.2) K/uL Immature Gran # (Auto) 0.12 H (0.00-0.02) K/uL Platelet Estimate Decreased L (Normal) Echinocytes 2+ PT (9.0-12.0) Seconds INR (0.9-1.1) APTT (21.0-31.0) Seconds PTT Ratio Heparin Anti-Xa, LM Wt (< 0.10) IU/ML VBG pH (7.36-7.41) VBG pCO2 (38-50) mmHg VBG pO2 mmHg VBG HCO3 mmol/L VBG O2 Saturation % VBG Base Excess mEq/L POC Sodium (135-144) mmol/L Sodium (136-145) mmol/L POC Potassium (3.3-5.0) mmol/L Potassium (3.5-5.1) mmol/L POC Chloride (101-112) mmol/L Chloride (98-107) mmol/L Carbon Dioxide (21-32) mmol/L POC Total CO2 (24-31) mmol/L Anion Gap (3-11) POC Anion Gap (16-25) mmol/L POC BUN (7-18) mg/dl BUN (6-23) mg/dl Creatinine (0.6-1.2) mg/dl POC Creatinine (0.6-1.3) mg/dl Est Cr Clr Drug Dosing Est GFR ( Amer) ml/min Est GFR (Non-Af Amer) ml/min BUN/Creatinine Ratio (10-20) Glucose (70-99(Fasting)) mg/dl POC Glucose (70-99) mg/dl POC Glucose (other) (70-99) mg/dl Osmolality (280-300) mOsm/kg Lactate (0.4-2.0) mmol/L Calcium (8.5-10.1) mg/dl POC Ioniz Calcium Sade (1.12-1.32) mmol/l Magnesium (1.7-2.4) mg/dl Total Bilirubin (0.2-1.0) mg/dl Direct Bilirubin (0-0.2) mg/dl AST (13-39) U/L ALT (7-52) U/L Alkaline Phosphatase (34-104) U/L Total Creatine Kinase (26-192) U/L Troponin I High Sens (0-14) pg/ml Total Protein (6.0-8.3) gm/dl Albumin (3.4-5.0) gm/dl Lipase (11-82) U/L Procalcitonin (0-0.5) ng/ml Urine Color Yellow Urine Appearance Turbid A (Clear) Urine pH 7.0 (4.5-7.5) Ur Specific [place] 1.018 (1.000-1.030) Urine Protein 2+ H (Negative) Urine Glucose (UA) 2+ H (Negative) Urine Ketones 1+ H (Negative) Urine Blood 3+ H (Negative) Urine Nitrite Negative (Negative) Urine Bilirubin Negative (Negative) Urine Urobilinogen Negative (Negative) Ur Leukocyte Esterase 3+ H (Negative) Urine WBC (Auto) >30 H (0-5) /hpf Urine RBC (Auto) 5-10 H (0-4) /hpf U Hyaline Cast (Auto) 1-5 (0-5) /lpf U Epithel Cells (Auto) 20-30 H (0-5) /lpf Urine Bacteria (Auto) 4+ H (Negative) Urine Yeast Not Reportable Ethyl Alcohol mg/dL (<10.0) mg/dl SARS-CoV-2, RNA, NAAT NEGATIVE (NEGATIVE) Blood Type Antibody Screen 07/27/22 07/27/22 07/27/22 Range/Units 13:29 13:29 13:29 WBC (4.8-10.8) K/ul RBC (3.93-5.22) M/uL Hgb (12.0-16.0) g/dl POC Hgb (12.0-16.0) g/dl Hct (34.1-44.9) % POC Hct (37-47) % MCV (80.0-100.0) fL MCH (25.0-34.0) pg MCHC (32.0-36.0) g/dL RDW Std Deviation (36.4-46.3) fL RDW Coeff of Jude (11.5-14.5) % Plt Count (130-400) K/uL MPV (9.4-12.3) fL Immature Gran % (Auto) % Neut % (Auto) % Lymph % (Auto) % Gray % (Auto) % Eos % (Auto) % Baso % (Auto) % Neut # (Auto) (1.4-6.5) K/uL Lymph # (Auto) (1.2-3.4) K/uL Gray # (Auto) (0.24-0.82) K/uL Eos # (Auto) (0-0.50) K/uL Baso # (Auto) (0-0.2) K/uL Immature Gran # (Auto) (0.00-0.02) K/uL Platelet Estimate (Normal) Echinocytes PT 16.1 H (9.0-12.0) Seconds INR 1.5 H (0.9-1.1) APTT 33.9 H (21.0-31.0) Seconds PTT Ratio 1.2 Heparin Anti-Xa, LM Wt > 1.50 (< 0.10) IU/ML VBG pH (7.36-7.41) VBG pCO2 (38-50) mmHg VBG pO2 mmHg VBG HCO3 mmol/L VBG O2 Saturation % VBG Base Excess mEq/L POC Sodium (135-144) mmol/L Sodium 134 L (136-145) mmol/L POC Potassium (3.3-5.0) mmol/L Potassium 4.7 (3.5-5.1) mmol/L POC Chloride (101-112) mmol/L Chloride 97 L (98-107) mmol/L Carbon Dioxide 10 L (21-32) mmol/L POC Total CO2 (24-31) mmol/L Anion Gap 27 H (3-11) POC Anion Gap (16-25) mmol/L POC BUN (7-18) mg/dl BUN 73 H (6-23) mg/dl Creatinine 2.46 H (0.6-1.2) mg/dl POC Creatinine (0.6-1.3) mg/dl Est Cr Clr Drug Dosing Not Reportable Est GFR ( Amer) 20.2 ml/min Est GFR (Non-Af Amer) 17.4 ml/min BUN/Creatinine Ratio 29.7 H (10-20) Glucose 810 H* (70-99(Fasting)) mg/dl POC Glucose (70-99) mg/dl POC Glucose (other) (70-99) mg/dl Osmolality (280-300) mOsm/kg Lactate (0.4-2.0) mmol/L Calcium 8.2 L (8.5-10.1) mg/dl POC Ioniz Calcium Sade (1.12-1.32) mmol/l Magnesium 2.1 (1.7-2.4) mg/dl Total Bilirubin 0.8 (0.2-1.0) mg/dl Direct Bilirubin 0.4 H (0-0.2) mg/dl AST 42 H (13-39) U/L ALT 25 (7-52) U/L Alkaline Phosphatase 137 H (34-104) U/L Total Creatine Kinase 732 H (26-192) U/L Troponin I High Sens (0-14) pg/ml Total Protein 6.0 (6.0-8.3) gm/dl Albumin 2.8 L (3.4-5.0) gm/dl Lipase (11-82) U/L Procalcitonin (0-0.5) ng/ml Urine Color Urine Appearance (Clear) Urine pH (4.5-7.5) Ur Specific [place] (1.000-1.030) Urine Protein (Negative) Urine Glucose (UA) (Negative) Urine Ketones (Negative) Urine Blood (Negative) Urine Nitrite (Negative) Urine Bilirubin (Negative) Urine Urobilinogen (Negative) Ur Leukocyte Esterase (Negative) Urine WBC (Auto) (0-5) /hpf Urine RBC (Auto) (0-4) /hpf U Hyaline Cast (Auto) (0-5) /lpf U Epithel Cells (Auto) (0-5) /lpf Urine Bacteria (Auto) (Negative) Urine Yeast Ethyl Alcohol mg/dL < 10.0 (<10.0) mg/dl SARS-CoV-2, RNA, NAAT (NEGATIVE) Blood Type Antibody Screen 07/27/22 07/27/22 07/27/22 Range/Units 13:29 13:29 13:29 WBC (4.8-10.8) K/ul RBC (3.93-5.22) M/uL Hgb (12.0-16.0) g/dl POC Hgb (12.0-16.0) g/dl Hct (34.1-44.9) % POC Hct (37-47) % MCV (80.0-100.0) fL MCH (25.0-34.0) pg MCHC (32.0-36.0) g/dL RDW Std Deviation (36.4-46.3) fL RDW Coeff of Jude (11.5-14.5) % Plt Count (130-400) K/uL MPV (9.4-12.3) fL Immature Gran % (Auto) % Neut % (Auto) % Lymph % (Auto) % Gray % (Auto) % Eos % (Auto) % Baso % (Auto) % Neut # (Auto) (1.4-6.5) K/uL Lymph # (Auto) (1.2-3.4) K/uL Gray # (Auto) (0.24-0.82) K/uL Eos # (Auto) (0-0.50) K/uL Baso # (Auto) (0-0.2) K/uL Immature Gran # (Auto) (0.00-0.02) K/uL Platelet Estimate (Normal) Echinocytes PT (9.0-12.0) Seconds INR (0.9-1.1) APTT (21.0-31.0) Seconds PTT Ratio Heparin Anti-Xa, LM Wt (< 0.10) IU/ML VBG pH (7.36-7.41) VBG pCO2 (38-50) mmHg VBG pO2 mmHg VBG HCO3 mmol/L VBG O2 Saturation % VBG Base Excess mEq/L POC Sodium (135-144) mmol/L Sodium (136-145) mmol/L POC Potassium (3.3-5.0) mmol/L Potassium (3.5-5.1) mmol/L POC Chloride (101-112) mmol/L Chloride (98-107) mmol/L Carbon Dioxide (21-32) mmol/L POC Total CO2 (24-31) mmol/L Anion Gap (3-11) POC Anion Gap (16-25) mmol/L POC BUN (7-18) mg/dl BUN (6-23) mg/dl Creatinine (0.6-1.2) mg/dl POC Creatinine (0.6-1.3) mg/dl Est Cr Clr Drug Dosing Est GFR ( Amer) ml/min Est GFR (Non-Af Amer) ml/min BUN/Creatinine Ratio (10-20) Glucose (70-99(Fasting)) mg/dl POC Glucose (70-99) mg/dl POC Glucose (other) (70-99) mg/dl Osmolality (280-300) mOsm/kg Lactate 3.4 H* (0.4-2.0) mmol/L Calcium (8.5-10.1) mg/dl POC Ioniz Calcium Sade (1.12-1.32) mmol/l Magnesium (1.7-2.4) mg/dl Total Bilirubin (0.2-1.0) mg/dl Direct Bilirubin (0-0.2) mg/dl AST (13-39) U/L ALT (7-52) U/L Alkaline Phosphatase (34-104) U/L Total Creatine Kinase (26-192) U/L Troponin I High Sens 58.7 H* (0-14) pg/ml Total Protein (6.0-8.3) gm/dl Albumin (3.4-5.0) gm/dl Lipase 13 (11-82) U/L Procalcitonin 33.33 H (0-0.5) ng/ml Urine Color Urine Appearance (Clear) Urine pH (4.5-7.5) Ur Specific [place] (1.000-1.030) Urine Protein (Negative) Urine Glucose (UA) (Negative) Urine Ketones (Negative) Urine Blood (Negative) Urine Nitrite (Negative) Urine Bilirubin (Negative) Urine Urobilinogen (Negative) Ur Leukocyte Esterase (Negative) Urine WBC (Auto) (0-5) /hpf Urine RBC (Auto) (0-4) /hpf U Hyaline Cast (Auto) (0-5) /lpf U Epithel Cells (Auto) (0-5) /lpf Urine Bacteria (Auto) (Negative) Urine Yeast Ethyl Alcohol mg/dL (<10.0) mg/dl SARS-CoV-2, RNA, NAAT (NEGATIVE) Blood Type Antibody Screen 07/27/22 07/27/22 Range/Units 13:33 14:13 WBC (4.8-10.8) K/ul RBC (3.93-5.22) M/uL Hgb (12.0-16.0) g/dl POC Hgb (12.0-16.0) g/dl Hct (34.1-44.9) % POC Hct (37-47) % MCV (80.0-100.0) fL MCH (25.0-34.0) pg MCHC (32.0-36.0) g/dL RDW Std Deviation (36.4-46.3) fL RDW Coeff of Jude (11.5-14.5) % Plt Count (130-400) K/uL MPV (9.4-12.3) fL Immature Gran % (Auto) % Neut % (Auto) % Lymph % (Auto) % Gray % (Auto) % Eos % (Auto) % Baso % (Auto) % Neut # (Auto) (1.4-6.5) K/uL Lymph # (Auto) (1.2-3.4) K/uL Gray # (Auto) (0.24-0.82) K/uL Eos # (Auto) (0-0.50) K/uL Baso # (Auto) (0-0.2) K/uL Immature Gran # (Auto) (0.00-0.02) K/uL Platelet Estimate (Normal) Echinocytes PT (9.0-12.0) Seconds INR (0.9-1.1) APTT (21.0-31.0) Seconds PTT Ratio Heparin Anti-Xa, LM Wt (< 0.10) IU/ML VBG pH (7.36-7.41) VBG pCO2 (38-50) mmHg VBG pO2 mmHg VBG HCO3 mmol/L VBG O2 Saturation % VBG Base Excess mEq/L POC Sodium (135-144) mmol/L Sodium (136-145) mmol/L POC Potassium (3.3-5.0) mmol/L Potassium (3.5-5.1) mmol/L POC Chloride (101-112) mmol/L Chloride (98-107) mmol/L Carbon Dioxide (21-32) mmol/L POC Total CO2 (24-31) mmol/L Anion Gap (3-11) POC Anion Gap (16-25) mmol/L POC BUN (7-18) mg/dl BUN (6-23) mg/dl Creatinine (0.6-1.2) mg/dl POC Creatinine (0.6-1.3) mg/dl Est Cr Clr Drug Dosing Est GFR ( Amer) ml/min Est GFR (Non-Af Amer) ml/min BUN/Creatinine Ratio (10-20) Glucose (70-99(Fasting)) mg/dl POC Glucose (70-99) mg/dl POC Glucose (other) (70-99) mg/dl Osmolality 356 H* (280-300) mOsm/kg Lactate (0.4-2.0) mmol/L Calcium (8.5-10.1) mg/dl POC Ioniz Calcium Sade (1.12-1.32) mmol/l Magnesium (1.7-2.4) mg/dl Total Bilirubin (0.2-1.0) mg/dl Direct Bilirubin (0-0.2) mg/dl AST (13-39) U/L ALT (7-52) U/L Alkaline Phosphatase (34-104) U/L Total Creatine Kinase (26-192) U/L Troponin I High Sens (0-14) pg/ml Total Protein (6.0-8.3) gm/dl Albumin (3.4-5.0) gm/dl Lipase (11-82) U/L Procalcitonin (0-0.5) ng/ml Urine Color Urine Appearance (Clear) Urine pH (4.5-7.5) Ur Specific [place] (1.000-1.030) Urine Protein (Negative) Urine Glucose (UA) (Negative) Urine Ketones (Negative) Urine Blood (Negative) Urine Nitrite (Negative) Urine Bilirubin (Negative) Urine Urobilinogen (Negative) Ur Leukocyte Esterase (Negative) Urine WBC (Auto) (0-5) /hpf Urine RBC (Auto) (0-4) /hpf U Hyaline Cast (Auto) (0-5) /lpf U Epithel Cells (Auto) (0-5) /lpf Urine Bacteria (Auto) (Negative) Urine Yeast Ethyl Alcohol mg/dL (<10.0) mg/dl SARS-CoV-2, RNA, NAAT (NEGATIVE) Blood Type O Positive Antibody Screen NEGATIVE Imaging Data My Impression: CT of the head reviewed by me showed no ICH. Radiologist's Impression: Abdomen/Pelvis CT 07/27/22 12:58 CT SCAN OF THE ABDOMEN AND PELVIS WITHOUT IV CONTRAST CLINICAL HISTORY: Found down. COMPARISON STUDY: Abdominal CT dated 01/01/2012. TECHNIQUE: CT scan of the abdomen and pelvis is performed from the lung bases to the proximal femora. Images are reviewed in the axial, sagittal, and coronal planes. IV contrast was not administered for this examination. Note that the examination is significantly suboptimal without oral and IV contrast. There is motion artifact, as well as streak artifact from the arms which could not be elevated above the abdomen. A dose lowering technique was utilized adhering to the principles of ALARA. FINDINGS: Lung bases: The heart is enlarged and without pericardial effusion. The lung bases are clear noting bibasilar scarring/atelectasis. A small hiatal hernia is noted. Liver: The unenhanced liver is cirrhotic in morphology and heterogeneous in attenuation. There is nodularity of the hepatic surface contour. There is no intrahepatic biliary ductal dilatation. Gallbladder: Surgically absent. Spleen: Normal in size and attenuation. Pancreas: The unenhanced pancreas is atrophic and grossly unremarkable. Adrenal glands: Unremarkable. Kidneys: The unenhanced kidneys demonstrate mild cortical atrophy and are without hydronephrosis. There are tiny foci of gas within the right renal collecting system. Asymmetric Extraneous on the right. There are no renal calculi identified. There is no evidence of contour deforming renal mass lesion. Abdominal vasculature: The abdominal aorta is normal in course and caliber noting mild atherosclerotic calcification. Bowel: There are scattered colonic diverticula without CT evidence of acute diverticulitis. No bowel obstruction is seen. The appendix is well-visualized and normal. Peritoneum: There is no intraperitoneal free air or abdominal ascites. Lymphadenopathy: None. Pelvic viscera: The bladder is decompressed around a Kraus catheter and could not be assessed. Gas within the bladder lumen is likely related to instrumentation. The uterus is surgically absent. No adnexal lesion is seen. Skeletal structures: The skeletal structures are osteopenic. There are chronic appearing compression deformities of T11, T12, L1, L2, and L3. Several views are new from 2012. Lumbosacral spondylosis is observed. No lytic or blastic lesions are seen. IMPRESSION: 1. There is asymmetric right-sided perinephric stranding/inflammation with tiny foci of nonspecific gas within the right renal pelvis. Correlate clinically and with urinalysis for evidence of right-sided pyelonephritis. Emphysematous infection is not excluded. 2. Cirrhotic liver morphology. 3. Cardiomegaly. 4. Additional findings as above. ACT 112: Negative or not required by law. Electronically signed by: Jeronimo Orosco M.D. 07/27/2022 2:[address] 07/27/22 12:58 CT cervical spine wo con CLINICAL HISTORY: found down TECHNIQUE: Multidetector row helical CT of the cervical spine was performed without administration of intravenous contrast. Coronal and sagittal reformations were obtained. Automated dose lowering techniques and/or adjustment according to patient size were utilized for this exam. Comparison: None available at the time of this dictation. FINDINGS: No acute fractures or subluxations are identified. Degenerative changes are seen in the visualized spine. Transverse ligament calcification is noted. The alignment is normal. Soft tissues are unremarkable. IMPRESSION: Degenerative changes without evidence of acute bony injury. ACT 112: Negative or not required by law. Electronically signed by: Preston Carrasquillo M.D. 07/27/2022 2:10 PM Chest X-Ray 07/27/22 12:58 SINGLE VIEW CHEST CLINICAL HISTORY: Found down. FINDINGS: An AP, portable, supine chest radiograph is compared to study dated 12/22/2021. The heart is enlarged noting atherosclerotic calcification of the thoracic aorta. The pulmonary vasculature is noncongested. Chronic interstitial thickening is similar to previous. There is mild bibasilar scarring/atelectasis. No airspace consolidation or large pleural effusion is identified. No pneumoth orax is seen. The skeletal structures are osteopenic. The bony thorax is grossly intact. IMPRESSION: Cardiomegaly with no acute cardiopulmonary abnormality identified. ACT 112: Negative or not required by law. Electronically signed by: Jeronimo Orosco M.D. 07/27/2022 1:[address] 07/27/22 12:58 CT head/brain wo con CLINICAL HISTORY: 82 years-old Female with found down. Acute head trauma TECHNIQUE: Multiple axial CT images of the head were obtained without contrast. A dose lowering technique was utilized adhering to the principles of ALARA. CT DOSE: 1516.11 mGy.cm COMPARISON: 09/09/2020 FINDINGS: No acute intracranial hemorrhage, midline shift, intracranial mass, hydrocephalus, territorial ischemia or abnormal extra-axial collection. Involutional changes with ventriculomegaly redemonstrated, likely on an ex vacuo basis. The calvarium is intact. Partially imaged nasal bone fractures are favored to be chronic. Prior bilateral lens repair. The paranasal sinuses, mastoid air cells, and middle ear cavities are clear. IMPRESSION: No acute intracranial abnormality or calvarial fracture. ACT 112: Negative or not required by law. The above report was generated using voice recognition software. It may contain grammatical, syntax or spelling errors. Electronically signed by: Alex Herrera M.D. 07/27/2022 2:01 PM Pelvis X-Ray 07/27/22 12:58 XR pelvis 1-2V routine CLINICAL HISTORY: found down TECHNIQUE: A single frontal view of the pelvis was obtained. Comparison: Comparison is made to pelvic radiograph 09/09/2020 FINDINGS: Of note, the top of the iliac crests are not within the field of view. There is no evidence of an acute fracture. Degenerative changes are seen in the hip joints and lumbar spine. No soft tissue abnormality is seen. IMPRESSION: Degenerative changes are seen. No pelvic ring fractures are visualized. ACT 112: Negative or not required by law. Electronically signed by: Preston Carrasquillo M.D. 07/27/2022 1:24 PM ECG Data Attestation: I personally reviewed and interpreted this ECG as follows: Additional Comments: EKG interpreted by me shows atrial fibrillation with rate of 91 QRS [address] elevation or ST depression. [facility] Narrative 1255: The patient was evaluated in room A1. A complete history and physical exam was performed Cardiac monitoring: An order was placed for continuous cardiac monitoring. The monitor shows a rate of 100 with atrial fibrillation rhythm On arrival in the emergency department the patient was found to be hypothermic, hypotensive and hypoxic. Patient was switched from EMS nasal cannula to high flow oxygen. Patient's Accu-Chek is too high to read. 2 L normal saline ordered for the patient wide open. I-STAT shows a creatinine of 2.8 and a g lucose greater than 700. We will continue to hydrate the patient to help with her hyperglycemia and hypertension and when her blood pressure is stabilized she will be taken over for CT scans. Yolanda castellon ordered for the patient. External medical records were reviewed and it shows that the patient is an insulin-dependent diabetic and does have a history of atrial fibrillation and is on Eliquis. External medical records also show that the [facility] and the patient has been DNR/DNI. 1350: Blood pressure improving with IV fluids. Patient still hypotensive. Switch to warm fluids through the warmer as he is still hypothermic also. CT of the head reviewed by me shows no ICH. It is thought that the patient is pro bably suffering from severe DKA or HHS. We will continue IV fluid repletion. Kraus catheter was placed and appeared extremely cloudy. Patient be treated empirically for sepsis with cefepime 2 g IV. 1500: Blood pressure and patient's temperature improving although both still low. Patient's oxygen has been being able to be titrated down from high flow nasal cannula to supplemental oxygen via nasal cannula. Imaging shows no traumatic injury however it does show possible pyelonephritis. Patient appears to be acidotic. Creatinine is elevated. Troponin is elevated. Glucose is greater than 800. Lactic acid elevated at 3.4. Serum osmolality elevated at 356. Potassium 4.7. Creatinine 2.46. Anion gap elevated 27. Patient will be started on insulin drip 0.1 units/kg/h for DKA. Discussed case with ICU Dr. Garcia who agrees to keep the patient in the ICU and there admitted. [facility] discussed with Keisha Bonilla and she stated to admit to Dr. Perry. Patient will have received a total of 4 L IV fluid bolus and normal saline is at 125 an hour. Spoke with the patient's daughter Alix Licea [phone]. She states that she lives in [place] and has been unable to speak with her mother for the last 2 days so she called the police to do a wellness check on her. She confirms that the patient is DNR/DNI and agrees with the plan to admit the patient to the ICU. The number listed for her above is her cell phone and she states she can be reached anytime to discuss her mother's care. 1630: Vital signs improved. Blood pressure normalized. Heart rate normalized. Patient down to 3 L nasal cannula. Temperature is improving. Patient is now more alert able to converse. Awaiting ICU bed for the patient to be sent there. Impression & Plan DKA (diabetic ketoacidosis), Fall, Hypothermia, Sepsis, Acute pyelonephritis, Rhabdomyolysis Discharge Plan Visit Data Chief Complaint: Altered Mental Status ED Provider: Aung Schaefer Discharge Problem: DKA (diabetic ketoacidosis), Fall, Hypothermia, Sepsis, Acute pyelonephritis, Rhabdomyolysis Patient Disposition: Admitted As Inpatient Discharge Instructions Interventions: ED Discharge Assessment Last Done: 07/27/22 17:22 : DKA (diabetic ketoacidosis) Qualifiers: Diabetes mellitus type: other specified (including ROSIO) Diabetes mellitus complication detail: with coma Qualified Code(s): E13.11 - Other specified diabetes mellitus with ketoacidosis with coma Sepsis Qualifiers: Sepsis type: sepsis due to unspecified organism Sepsis acute organ dysfunction status: with acute organ dysfunction Severe sepsis acute organ dysfunction type: acute renal failure Acute renal failure type: unspecified Severe sepsis shock status: unspecified Qualified Code(s): A41.9 - Sepsis, unspecified organism
[2022-07-27 13:59] LABS: INR 1.5 (0.9-1.1); Partial Thromboplastin Ratio 1.2; Partial Thromboplastin Time 33.9 Seconds (21.0-31.0); Prothrombin Time 16.1 Seconds (9.0-12.0)
[2022-07-27] MEDS ORDERED: CEFEPIME 2,000 MG/20 ML VIAL IV STA (14:01)
[2022-07-27] MEDS ORDERED: SODIUM CHLORIDE 0.9% 1000ML 2,000 ML IV ONE (14:03)
--- NOTE | 2022-07-27 14:03 | CT Scan Report ---
CT head/brain wo con CLINICAL HISTORY: 82 years-old Female with found down. Acute head trauma TECHNIQUE: Multiple axial CT images of the head were obtained without contrast. A dose lowering tech nique was utilized adhering to the principles of ALARA. CT DOSE: 1516.11 mGy.cm COMPARISON: 09/09/2020 FINDINGS: No acute intracranial hemorrhage, midline shift, intracranial mass, hydrocephalus, territorial ischem ia or abnormal extra-axial collection. Involutional changes with ventriculomegaly redemonstrated, lik alex on an ex vacuo basis. The calvarium is intact. Partially imaged nasal bone fractures are favored to be chronic. Prior bilat eral lens repair. The paranasal sinuses, mastoid air cells, and middle ear cavities are clear. IMPRESSION: No acute intracranial abnormality or calvarial fracture. ACT 112: Negative or not required by law. The above report was generated using voice recognition software. It may contain grammatical, syntax o r spelling errors. Electronically signed by: Alex Herrera M.D. 07/27/2022 2:01 PM
--- NOTE | 2022-07-27 14:04 | CT Scan Report ---
CT SCAN OF THE ABDOMEN AND PELVIS WITHOUT IV CONTRAST CLINICAL HISTORY: Found down. COMPARISON STUDY: Abdominal CT dated 01/01/2012. TECHNIQUE: CT scan of the abdomen and pelvis is performed from the lung bases to the proximal femora. Images are reviewed in the axial, sagittal, and coronal planes. IV contrast was not administered for this examination. Note that the examination is significantly suboptimal without oral and IV contrast . There is motion artifact, as well as streak artifact from the arms which could not be elevated abov e the abdomen. A dose lowering technique was utilized adhering to the principles of ALARA. FINDINGS: Lung bases: The heart is enlarged and without pericardial effusion. The lung bases are clear noting b ibasilar scarring/atelectasis. A small hiatal hernia is noted. Liver: The unenhanced liver is cirrhotic in morphology and heterogeneous in attenuation. There is nod ularity of the hepatic surface contour. There is no intrahepatic biliary ductal dilatation. Gallbladder: Surgically absent. Spleen: Normal in size and attenuation. Pancreas: The unenhanced pancreas is atrophic and grossly unremarkable. Adrenal glands: Unremarkable. Kidneys: The unenhanced kidneys demonstrate mild cortical atrophy and are without hydronephrosis. The re are tiny foci of gas within the right renal collecting system. Asymmetric Extraneous on the right. There are no renal calculi identified. There is no evidence of contour defor santos renal mass lesion. Abdominal vasculature: The abdominal aorta is normal in course and caliber noting mild atheroscleroti c calcification. Bowel: There are scattered colonic diverticula without CT evidence of acute diverticulitis. No bowel obstruction is seen. The appendix is well-visualized and normal. Peritoneum: There is no intraperitoneal free air or abdominal ascites. Lymphadenopathy: None. Pelvic viscera: The bladder is decompressed around a Kraus catheter and could not be assessed. Gas wi thin the bladder lumen is likely related to instrumentation. The uterus is surgically absent. No adne xal lesion is seen. Skeletal structures: The skeletal structures are osteopenic. There are chronic appearing compression deformities of T11, T12, L1, L2, and L3. Several views are new from 2012. Lumbosacral spondylosis is observed. No lytic or blastic lesions are seen. IMPRESSION: 1. There is asymmetric right-sided perinephric stranding/inflammation with tiny foci of nonspecific g as within the right renal pelvis. Correlate clinically and with urinalysis for evidence of right-side d pyelonephritis. Emphysematous infection is not excluded. 2. Cirrhotic liver morphology. 3. Cardiomegaly. 4. Additional findings as above. ACT 112: Negative or not required by law. Electronically signed by: Jeronimo Orosco M.D. 07/27/2022 2:03 PM
[2022-07-27 14:05] LABS: Bacteria Urine Automated 4+ (Negative)
--- NOTE | 2022-07-27 14:11 | CT Scan Report ---
CT cervical spine wo con CLINICAL HISTORY: found down TECHNIQUE: Multidetector row helical CT of the cervical spine was performed without administration of intravenous contrast. Coronal and sagittal reformations were obtained. Automated dose lowering techn iques and/or adjustment according to patient size were utilized for this exam. Comparison: None available at the time of this dictation. FINDINGS: No acute fractures or subluxations are identified. Degenerative changes are seen in the visualized sp ine. Transverse ligament calcification is noted. The alignment is normal. Soft tissues are unremarkab le. IMPRESSION: Degenerative changes without evidence of acute bony injury. ACT 112: Negative or not required by law. Electronically signed by: Preston Carrasquillo M.D. 07/27/2022 2:10 PM
[2022-07-27 14:19] LABS: Troponin I High Sensitivity 58.7 pg/ml (0-14)
[2022-07-27 14:26] LABS: Hematocrit (blood only) 38.7 % (34.1-44.9); Mean Corpuscular Hemoglobin 27.5 pg (25.0-34.0); Mean Corpuscular Volume 88.8 fL (80.0-100.0); Mean Platelet Volume 12.9 fL (9.4-12.3); Platelet Count 55 K/uL (130-400); RDW Coefficient of Variation 14.1 % (11.5-14.5); Red Blood Count 4.36 M/uL (3.93-5.22); White Blood Count 12.36 K/ul (4.8-10.8)
[2022-07-27 14:28] LABS: Basophils # (auto) 0.07 K/uL (0-0.2); Basophils % (auto) 0.6 %; Echinocytes 2+; Immature Granulocytes # (auto) 0.12 K/uL (0.00-0.02); Lymphocytes # (auto) 0.63 K/uL (1.2-3.4); Lymphocytes % (auto) 5.1 %; Monocytes # (auto) 0.77 K/uL (0.24-0.82); Monocytes % (auto) 6.2 %; Neutrophils # (auto) 10.77 K/uL (1.4-6.5); Neutrophils % (auto) 87.1 %; Platelet Estimate Decreased (Normal)
[2022-07-27 14:40] LABS: Alanine Aminotransferase 25 U/L (7-52); Albumin Level 2.8 gm/dl (3.4-5.0); Alkaline Phosphatase 137 U/L (34-104); Anion Gap 27 (3-11); Aspartate Aminotransferase 42 U/L (13-39); BUN Creatinine Ratio 29.7 (10-20); Bilirubin Direct 0.4 mg/dl (0-0.2); Bilirubin,Total 0.8 mg/dl (0.2-1.0); Blood Urea Nitrogen 73 mg/dl (6-23); Calcium 8.2 mg/dl (8.5-10.1); Carbon Dioxide 10 mmol/L (21-32); Chloride 97 mmol/L (98-107); Creatine Kinase 732 U/L (26-192); Est GFR (African American) 20.2 ml/min; Est GFR (Non-African American) 17.4 ml/min; Glucose 810 mg/dl (70-99(Fasting)); Magnesium 2.1 mg/dl (1.7-2.4); Potassium 4.7 mmol/L (3.5-5.1); Sodium 134 mmol/L (136-145)
--- NOTE | 2022-07-27 14:47 | History & Physical Report ---
Date of Service July 27, 2022 Assessment & Plan (1) Acute metabolic encephalopathy: Plan: This is an 82-year-old female with PMH DM II, paroxysmal atrial fibrillation on Eliquis, HLD, depression and other medical problems listed below who presents to the ER after being found unresponsive at home and was found to have acute metabolic encephalopathy in setting of septic shock and metabolic acidosis 2/2 DKA. Multifactorial given septic shock 2/2 pyelo, DKA Continue IV fluid resuscitation, antibiotics, rewarming CT head without acute intracranial abnormalities Will be admitted to ICU for further management by Dr. Choe (2) Hypothermia: Plan: Initial temp 30.3 C, chino hugger in place, continue to monitor closely (3) Septic shock: (4) Complicated UTI (urinary tract infection): Plan: Hypotensive, hypothermic. WBC 12.36, lactate 3.4 (trending), procal 33, UA grossly abnormal CT abd/pelvis with asymmetric right-sided perinephric stranding/inflammation with tiny foci of nonspecific gas within the right renal pelvis. Correlate clinically and with urinalysis for evidence of right-sided pyelonephritis Continue empiric cefepime, fluids, follow cultures Kraus in place (5) Metabolic acidosis: (6) DKA (diabetic ketoacidosis): Plan: VBG pH 7.12, glucose 800, bicarb 10, anion gap 27 Bolused 4 L NSS in ED, insulin drip started Added DKA protocol orders including repeat BMP, VBG and lytes To be managed in ICU (7) Elevated creatine kinase level: Plan: CK 732, mild rhabdo. Continue IV fluids (8) Elevated troponin: Plan: In setting of septic shock, elevated CK. Initial trop 58.7, continue to trend trop (9) WEST (acute kidney injury): Plan: Cr 2.46 (baseline ~ 0.7) in setting of severe dehydration, infection, DKA. Continue IV fluid resuscitation, monitor closely (10) Diabetes mellitus, type 2: Plan: Being managed for DKA as above. A1c pending (11) Paroxysmal atrial fibrillation: Plan: Home regimen includes amiodarone, Lopressor and Eliquis for anticoagulation DVT Ppx: SCDs, on Eliquis normally for stroke ppx given A fib Code status: DNR/DNI PCP: Genna Benites Dispo: Admitted to ICU Patient seen in collaboration with Dr. Ellis. Please see addendum. History of Present Illness Chief Complaint: AMS Primary Care Provider: Josh Benites, This is an 82-year-old female with PMH DM II, paroxysmal atrial fibrillation on Eliquis, HLD, depression and other medical problems listed below who presents to the ER after being found unresponsive at home. Family, who lives out of state, last spoke with her on and became concerned when they did not hear from her since then. Daughter then called EMS who found patient lying on the ground in her home unresponsive and covered in urine and vomit. Was notably hypotensive, hypothermic and with critically high BSG. Brought into [facility] ED for further evaluation. At baseline, patient uses a walker to ambulate and lives alone. Daughter confirmed patient's code status over the phone with Dr. Schaefer as DNR/DNI. ROS unobtainable due to reduced consciousness. Allergies Allergy/AdvReac Type Severity Reaction Status Date / Time codeine AdvReac Intermediate VOMITING Verified 07/27/22 15:09 Home Medications Medication Instructions Recorded Confirmed Type apixaban 5 mg tablet (Eliquis) 5 mg PO BID #20 tabs 09/19/20 07/27/22 Rx magnesium oxide 400 mg (241.3 mg 400 mg PO QAM #20 tabs 09/19/20 07/27/22 Rx magnesium) tablet mirtazapine 30 mg tablet 30 mg PO HS #20 tabs 09/19/20 07/27/22 Rx hydrocodone 5 mg-acetaminophen 325 1 tab PO Q6H PRN pain #30 tabs 09/20/20 07/27/22 Rx mg tablet acetaminophen 325 mg tablet 650 mg PO Q4H PRN fever or pain 10/02/20 07/27/22 History cholecalciferol (vitamin D3) 50 2,000 unit PO DAILY 10/02/20 07/27/22 History mcg (2,000 unit) capsule diclofenac sodium 1 % topical gel 1 g topical BID PRN Pain 02/19/21 07/27/22 History amiodarone 100 mg tablet 100 mg PO DAILY 12/22/21 07/27/22 History atorvastatin 10 mg tablet 10 mg PO DAILY 12/22/21 07/27/22 History docusate sodium 100 mg capsule 100 mg PO BID PRN Constipation 12/22/21 07/27/22 History iron,carbonyl 65 mg-vitamin C 125 1 tab PO DAILY 12/22/21 07/27/22 History mg tablet,delayed release (Vitron-C) metoprolol tartrate 25 mg tablet 25 mg PO BID 12/22/21 07/27/22 History ondansetron HCl 4 mg tablet 4 mg PO Q6H PRN NAUSEA/VOMITING 12/22/21 07/27/22 History potassium chloride 10 mEq 20 meq PO DAILY 12/22/21 07/27/22 History capsule,extended release insulin glargine 100 unit/mL (3 30 unit (0.3 mL) SC DAILY@1800 #15 12/31/21 07/27/22 Rx mL) subcutaneous pen (Lantus mL Solostar U-100 Insulin) metformin 500 mg tablet,extended 500 mg PO DAILY #30 tabs 12/31/21 07/27/22 Rx release 24 hr Lactobacillus acidophilus 10,000 mmu cells PO DAILY 07/27/22 07/27/22 History insulin aspart U-100 100 unit/mL 45 unit SC TIDM 07/27/22 07/27/22 History subcutaneous solution (Novolog U-100 Insulin aspart) insulin degludec 200 unit/mL (3 160 unit subcut DAILY 07/27/22 07/27/22 History mL) subcutaneous pen (Tresiba FlexTouch U-200 insulin) polyethylene glycol 3350 17 17 g PO DAILY PRN Constipation 07/27/22 07/27/22 History gram/dose oral powder (Miralax) Past Med/Surg History Medical History Atrial fibrillation Closed fibular fracture hx Compression fracture L3 Depression Diabetes mellitus, type 2 Fatty liver GERD (gastroesophageal reflux disease) Hyperlipidemia Paroxysmal atrial fibrillation Polyarthritis Surgical History H/O bilateral oophorectomy H/O: hysterectomy History of colonoscopy Family History Other Heart disease Social History Smoking Status: Unknown if ever smoked Second Hand Exposure: No; Hx Alcohol Use: No Hx Substance Use: No Preferred Language: Indian Communication Ability: Effective Furnace Repairer Required: No Beliefs That Will Affect Care: None marital status: / Current Living Situation: Alone Current Living Situation Comment: [facility] How many Children do You have: 2 Feels Safe at Home: Yes Assistive Devices: Walker Review of Systems Review of Systems: Unobtainable due to reduced consciousness Physical Exam Physical Exam: General Appearance: WD/WN, vitals as above, lethargic, responsive to painful stimuli, wearing chino hugger Head: normocephalic, atraumatic Eyes: normal inspection, PERRL, conjunctivae normal, anicteric sclerae ENT: external ear and nose normal, oropharynx normal Neck: normal visual inspection, trachea midline, no thyromegaly Respiratory: normal respiratory effort, lungs clear to auscultation, no wheeze, rales, rhonchi. No accessory muscle use Cardiovascular: regular rate, rhythm, no murmur, normal peripheral pulses, no BLE edema. Vessels: no JVD Chest: normal inspection of chest Abdomen/GI: normal bowel sounds, soft, nontender, no hepatosplenomegaly : Kraus in place draining cloudy yellow urine Extremities/Musculoskeletal: no cyanosis or clubbing, + abrasions noted on bilateral knees and feet Neurologic/psychiatric: PERRL, somnolent, A&Ox0, responsive to painful stimuli only Skin: no rashes, normal color, warm/dry Results & Data Results & Data ([facility]) Vital Signs (Past 12 Hours) Vital Signs Temp Pulse Pulse Resp BP BP Pulse Ox 07/27/22 14:44 30.1 C L 73 20 81/58 L 95 07/27/22 14:33 30 C L 60 20 90/56 L 96 07/27/22 14:20 29.8 C L 70 20 74/55 L 98 07/27/22 14:15 29.8 C L 71 20 87/53 L 99 07/27/22 14:10 29.8 C L 85 20 77/55 L 100 07/27/22 14:01 29.8 C L 07/27/22 13:19 80 20 99 07/27/22 13:57 29.8 C L 96 H 20 50/32 L 100 07/27/22 13:55 90 20 100 07/27/22 13:27 30.3 C L 96 H 20 80/60 L 96 07/27/22 13:10 98 07/27/22 13:10 85 20 97 O2 Del Method O2 Flow Rate FiO2 07/27/22 14:44 Nasal Cannula 3 07/27/22 14:33 Nasal Cannula 3 07/27/22 14:20 Nasal Cannula 3 07/27/22 14:15 Nasal Cannula 3 07/27/22 14:10 Nasal Cannula 3 07/27/22 14:01 07/27/22 13:19 High Flow Nasal Cannula 25 45 07/27/22 13:57 Nasal Cannula 4 07/27/22 13:55 Nasal Cannula 5 07/27/22 13:27 Nasal Cannula 6 07/27/22 13:10 High Flow Nasal Cannula 07/27/22 13:10 High Flow Nasal Cannula Laboratory Results Short CBC 07/27/22 Range/Units 13:29 WBC 12.36 H (4.8-10.8) K/ul Hgb 12.0 (12.0-16.0) g/dl Hct 38.7 (34.1-44.9) % Plt Count 55 L (130-400) K/uL BMP 07/27/22 13:29 Sodium 134 L Potassium 4.7 Chloride 97 L Carbon Dioxide 10 L BUN 73 H Creatinine 2.46 H Glucose 810 H* Calcium 8.2 L Cardiac Enzymes 07/27/22 Range/Units 13:29 Total Creatine Kinase 732 H (26-192) U/L Liver Function 07/27/22 Range/Units 13:29 Total Bilirubin 0.8 (0.2-1.0) mg/dl Direct Bilirubin 0.4 H (0-0.2) mg/dl AST 42 H (13-39) U/L ALT 25 (7-52) U/L Alkaline Phosphatase 137 H (34-104) U/L Albumin 2.8 L (3.4-5.0) gm/dl Urine 07/27/22 Range/Units 13:28 Urine Color Yellow Urine Appearance Turbid A (Clear) Urine pH 7.0 (4.5-7.5) Ur Specific Erwin 1.018 (1.000-1.030) Urine Protein 2+ H (Negative) Urine Glucose (UA) 2+ H (Negative) Diagnostic Findings Abdomen/Pelvis CT 07/27/22 12:58 CT SCAN OF THE ABDOMEN AND PELVIS WITHOUT IV CONTRAST CLINICAL HISTORY: Found down. COMPARISON STUDY: Abdominal CT dated 01/01/2012. TECHNIQUE: CT scan of the abdomen and pelvis is performed from the lung bases to the proximal femora. Images are reviewed in the axial, sagittal, and coronal planes. IV contrast was not administered for this examination. Note that the examination is significantly suboptimal without oral and IV contrast. There is motion artifact, as well as streak artifact from the arms which could not be elevated above the abdomen. A dose lowering technique was utilized adhering to the principles of ALARA. FINDINGS: Lung bases: The heart is enlarged and without pericardial effusion. The lung bases are clear noting bibasilar scarring/atelectasis. A small hiatal hernia is noted. Liver: The unenhanced liver is cirrhotic in morphology and heterogeneous in attenuation. There is nodularity of the hepatic surface contour. There is no intrahepatic biliary ductal dilatation. Gallbladder: Surgically absent. Spleen: Normal in size and attenuation. Pancreas: The unenhanced pancreas is atrophic and grossly unremarkable. Adrenal glands: Unremarkable. Kidneys: The unenhanced kidneys demonstrate mild cortical atrophy and are without hydronephrosis. There are tiny foci of gas within the right renal collecting system. Asymmetric Extraneous on the right. There are no renal calculi identified. There is no evidence of contour deforming renal mass lesion. Abdominal vasculature: The abdominal aorta is normal in course and caliber noting mild atherosclerotic calcification. Bowel: There are scattered colonic diverticula without CT evidence of acute diverticulitis. No bowel obstruction is seen. The appendix is well-visualized and normal. Peritoneum: There is no intraperitoneal free air or abdominal ascites. Lymphadenopathy: None. Pelvic viscera: The bladder is decompressed around a Kraus catheter and could not be assessed. Gas within the bladder lumen is likely related to instrumentation. The uterus is surgically absent. No adnexal lesion is seen. Skeletal structures: The skeletal structures are osteopenic. There are chronic appearing compression deformities of T11, T12, L1, L2, and L3. Several views are new from 2012. Lumbosacral spondylosis is observed. No lytic or blastic lesions are seen. IMPRESSION: 1. There is asymmetric right-sided perinephric stranding/inflammation with tiny foci of nonspecific gas within the right renal pelvis. Correlate clinically and with urinalysis for evidence of right-sided pyelonephritis. Emphysematous infection is not excluded. 2. Cirrhotic liver morphology. 3. Cardiomegaly. 4. Additional findings as above. ACT 112: Negative or not required by law. Electronically signed by: Jeronimo Orosco M.D. 07/27/2022 2:[address] 07/27/22 12:58 CT cervical spine wo con CLINICAL HISTORY: found down TECHNIQUE: Multidetector row helical CT of the cervical spine was performed without administration of intravenous contrast. Coronal and sagittal reformations were obtained. Automated dose lowering techniques and/or adjustment according to patient size were utilized for this exam. Comparison: None available at the time of this dictation. FINDINGS: No acute fractures or subluxations are identified. Degenerative changes are seen in the visualized spine. Transverse ligament calcification is noted. The alignment is normal. Soft tissues are unremarkable. IMPRESSION: Degenerative changes without evidence of acute bony injury. ACT 112: Negative or not required by law. Electronically signed by: Preston Carrasquillo M.D. 07/27/2022 2:10 PM Chest X-Ray 07/27/22 12:58 SINGLE VIEW CHEST CLINICAL HISTORY: Found down. FINDINGS: An AP, portable, supine chest radiograph is compared to study dated 12/22/2021. The heart is enlarged noting atherosclerotic calcification of the thoracic aorta. The pulmonary vasculature is noncongested. Chronic interstitial thickening is similar to previous. There is mild bibasilar scarring/atelectasis. No airspace consolidation or large pleural effusion is identified. No pneumothorax is seen. The skeletal structures are osteopenic. The bony thorax is grossly intact. IMPRESSION: Cardiomegaly with no acute cardiopulmonary abnormality identified. ACT 112: Negative or not required by law. Electronically signed by: Jeronimo Orosco M.D. 07/27/2022 1:[address] 07/27/22 12:58 CT head/brain wo con CLINICAL HISTORY: 82 years-old Female with found down. Acute head trauma TECHNIQUE: Multiple axial CT images of the head were obtained without contrast. A dose lowering technique was utilized adhering to the principles of ALARA. CT DOSE: 1516.11 mGy.cm COMPARISON: 09/09/2020 FINDINGS: No acute intracranial hemorrhage, midline shift, intracranial mass, hydrocephalus, territorial ischemia or abnormal extra-axial collection. Involutional changes with ventriculomegaly redemonstrated, likely on an ex vacuo basis. The calvarium is intact. Partially imaged nasal bone fractures are favored to be chronic. Prior bilateral lens repair. The paranasal sinuses, mastoid air cells, and middle ear cavities are clear. IMPRESSION: No acute intracranial abnormality or calvarial fracture. ACT 112: Negative or not required by law. The above report was generated using voice recognition software. It may contain grammatical, syntax or spelling errors. Electronically signed by: Alex Herrera M.D. 07/27/2022 2:01 PM Pelvis X-Ray 07/27/22 12:58 XR pelvis 1-2V routine CLINICAL HISTORY: found down TECHNIQUE: A single frontal view of the pelvis was obtained. Comparison: Comparison is made to pelvic radiograph 09/09/2020 FINDINGS: Of note, the top of the iliac crests are not within the field of view. There is no evidence of an acute fracture. Degenerative changes are seen in the hip joints and lumbar spine. No soft tissue abnormality is seen. IMPRESSION: Degenerative changes are seen. No pelvic ring fractures are visualized. ACT 112: Negative or not required by law. Electronically signed by: Preston Carrasquillo M.D. 07/27/2022 1:24 PM Code Status & VTE Plan VTE Prophylaxis Plan VTE Prophylaxis will be ordered: Yes Supervising Physician Co-Signing Physician Notes Patient seen and examined independently. Discussed with Keisha Bonilla PA-C. Patient was found down in her home covered in vomitus and urine by the police. Patient's last known well was on when she talked with her daughter on the phone her daughter called the police to check on her after she was not able to get in touch with her mom. On presentation to the ED, patient was hypothermic, hypotensive and comatose. Work-up revealed leukocytosis, DKA, WEST, urinary tract infection and rhabdomyolysis. On examination Patient is comatose, does not respond to any noxious stimuli Chest bilateral vesicular breath sound CVSS1-S2 no murmur Abdomensoft, nondistended Extremitiesno peripheral edema. Assessment/plan; 1) severe hypothermia: -Likely due to severe sepsis/environmental factor -External warming with chino hugger. Warm IV fluids -Temperature gradually improving 2) hypotension: Multifactorial secondary to hypothermia, hypovolemic shock due to DKA, possible septic shock -Patient received 4 L of IV fluids in the ED - continue on IV fluids at 150 cc/h; will defer to ICU for further fluids -Antibiotics with cefepime for possible UTI 3) DKA, -Admitting glucose of 800 mg per DL -VBG reveals pH of 7.1 -Insulin drip per DKA protocol -IV fluids. Her corrected sodium would be greater than 145; will continue isotonic fluids for now. Can consider half-normal saline after blood pressure improves. -BMP, VBG every 4 hours. Replete electrolyte as necessary. 4) acute kidney injury 5) Pyelonephritis -Due to hypovolemia, hypothermia, DKA -CT abdomen shows asymmetric right-sided perinephric stranding. -Continue IV fluids, cefepime -Follow-up on blood culture, urine culture. 6) mild rhabdomyolysis-CK mildly elevated; obtain CK in a.m. 7) elevated troponin, likely demand ischemia-trend troponin. Home medication including Eliquis is on hold. Risks of coagulopathy due to hypothermia; will resume when appropriate. Rest of the care as per ICU. Discussed with daughter Alix over the phone. She is currently in [place] and is traveling back.
[2022-07-27] MEDS ORDERED: GLUCAGON FOR INJ 1 MG VIAL SQ PRN (14:48)
[2022-07-27] MEDS ORDERED: GLUCOSE 40% GEL 15 GM TUBE PO PRN (14:48)
[2022-07-27] MEDS ORDERED: STAT INSULIN DRIP STA (14:48)
[2022-07-27] MEDS ORDERED: GLUCOSE 10 TAB/TUBE PO PRN (14:48)
[2022-07-27] MEDS ORDERED: STAT IV Infusion **Titration per Protocol STA ×3 (14:52→22:40)
[2022-07-27] MEDS ORDERED: DKA GOAL RANGE 150-250 mg/dl ONE (14:52)
[2022-07-27] MEDS ORDERED: PHARMACY GLYCEMIC MGMT CONSULT PRN (14:52)
[2022-07-27] MEDS ORDERED: PENDING 1/2NSS+20mEq KCL IVF SCH (15:00)
[2022-07-27] MEDS ORDERED: SODIUM CHLORIDE 0.9% 1000ML 1,000 ML IV SCH (15:00)
[2022-07-27] MEDS ORDERED: NORMOSOL-R 1,000 ML IV SCH ×2 (15:00→22:45)
[2022-07-27] MEDS ORDERED: INSULIN REGULAR 250 UNITS in SODIUM CHLORIDE 0.9% 247.5 ML IV SCH (15:00)
[2022-07-27] MEDS: INSULIN REGULAR 250 UNITS in SODIUM CHLORIDE 0.9% 247.5 ML IV SCH (15:44)
[2022-07-27 16:16] LABS: Base Excess VBG -19.5 mEq/L; HCO3 VBG 9 mmol/L; Oxygen Saturation VBG 70.8 %; PCO2 VBG 30 mmHg (38-50); PO2 VBG 50 mmHg; pH VBG 7.09 (7.36-7.41)
[2022-07-27] MEDS ORDERED: INSULIN ASPART PER UNIT SC SCH (16:30)
[2022-07-27 16:36] LABS: Anion Gap 22 (3-11); BUN Creatinine Ratio 33.8 (10-20); Blood Urea Nitrogen 69 mg/dl (6-23); Calcium 7.5 mg/dl (8.5-10.1); Carbon Dioxide 10 mmol/L (21-32); Chloride 105 mmol/L (98-107); Est GFR (African American) 25.3 ml/min; Est GFR (Non-African American) 21.8 ml/min; Glucose 699 mg/dl (70-99(Fasting)); Magnesium 1.8 mg/dl (1.7-2.4); Phosphorus 4.7 mg/dl (2.5-4.9); Potassium 4.1 mmol/L (3.5-5.1); Sodium 137 mmol/L (136-145)
[2022-07-27] MEDS: INSULIN ASPART PER UNIT SC SCH ×2 (17:08→18:22)
[2022-07-27] MEDS ORDERED: SODIUM CHLOR 0.45% + 20MEQ KCL 20 MEQ/1,000 ML BAG IV SCH (17:15)
--- NOTE | 2022-07-27 17:16 | Electrocardiogram Report ---
Test Reason : Blood Pressure : / mmHG Vent. Rate : 091 BPM Atrial Rate : 078 BPM P-R Int : 000 ms QRS Dur : 068 ms QT Int : 390 ms P-R-T Axes : 000 -59 043 degrees QTc Int : 479 ms Probably atrial fibrillation Left axis deviation Low voltage QRS Abnormal ECG When compared with ECG of 24-DEC-2021 05:18, Minimal criteria for Anterior infarct are now Present Confirmed by Jatinder Durham ([id number]) on 07/27/2022 5:16:06 PM Referred By: REFERRED SELF Confirmed By:Good Durham
[2022-07-27] MEDS ORDERED: ICU Protocol for HYPERglycemia SCH (17:20)
[2022-07-27] MEDS: PENDING D5 1/2NS+20mEq KCL IVF SCH ×3 (18:22→21:40)
--- NOTE | 2022-07-27 19:15 | Critical Care Consultation ---
Date of Consultation July 27, 2022 Assessment & Plan (1) DKA (diabetic ketoacidosis): (2) Sepsis: (3) WEST (acute kidney injury): (4) Acute metabolic encephalopathy: (5) Elevated troponin: (6) Paroxysmal atrial fibrillation: (7) Pyelonephritis: Plan Reason Critically Ill: 82 YOF found down at home, arrived hypothermic, in DKA and septic shock from likely pyelonephritis Neuro - Metabolic Encephalopathy, CAM ICU: ANGELIKA - Supportive care at this time reversing DKA and sepsis care with abx, IVF, vasopressors - She is on anticoagulation at home for her afib- intial head CT negative for any bleed or acute process- If neurological changes occur - repeat non con head CT for DASH - NO focal deficits noted Cardiac - Shock, Afib with RVR, HTN, Elevated troponin - Shock multifactorial- hypovolemia with DKA and septic shock- - AFIB with RVR- difficult to ascertain at this time which is the offender but she is volume responsive will add pressors as below - will consider amiodarone infusion without bolus as likely unable to take PO - Continue with volume for DKA- currently volume responsive with bolus - Will add Levophed on and vasopressin if needed to maintain MAPS >65- random cortisol pending - Hold antihypertensives - Continue with Eiiquis for Afib- hold if unable to take PO - HScTNI in the 50s likley demand at this time- trend Respiratory - No acute needs GI - No acute needs - NPO RENAL/LYTES - AGAP Metabolic Acidosis, WEST, multiple electrolyte disturbances - CK pending as found down at home for unknown amount of time - AGAP acidosis secondary to DKA- supportive care and volume - Replace electrolytes per ICU protocol - Follow renal function with faith of intravascular volume - Pyelonephritis, UTI complicated see below ID section cai to gravity ENDO - DKA - Normosol until BG <250 then change to dextrose containing fluids - Insulin infusion - electrolyte management HEME - No acute needs ID - Pyelonephritis, septic shock - Cefepime renal dose - UA and blood cultures pending - WBC 12 with NLR 5:1- Lactate negative, PCT LINES/IV ACCESS - PIV, Cai Continue use of these lines consider central access if vasopressor requirements increase DVT PROPHYLAXIS - Ingrid CAMEJO DISPO: ICU care until insulin drip off and shock reversed I have personally spent 50 minutes of critical care time in the direct management of this patient. This is a life/limb threatening event. This includes time spent evaluating patient, direct bedside care, chart review, placing orders, interpretation of diagnostic studies, discussion with consultants, patient, and family members, as well as other required patient management activities. This time is exclusive of all separately billable procedures, and separate from and in addition to any other critical care service time. Thank you for allowing us to participate in the care of this patient. Please refer to my attending physician's documentation for any further recommendations. History of Present Illness Reason for Consultation: DKA sepsis Requesting Physician: Caleb Attending Physician: Vladimir Ellis MD History of Present Illness 82 YOF admitted to ICU by hospitalist service for DKA and sepsis from what appears to be pyelonephritis. Patient was apparently found down at home for unknown time and EMS was called by patient's daughter, who lives in [place]. The patient is DNR/DNI. Did discuss with the duaghter on the phone as far as supportive care for her sepsis and DKA. Will support sepsis with vasopressors as needed. She was noted to be hypothermic on arrival as well, which is currently improving. Patient was initially with PH 7.09, HCO3 of 11, and serum glucose of >700. She had blood cultures performed, UA with culture. CT scan of abdomen and pelvis noted right sided peylonephritis consistent with her UA, there was NO interpretation of associated stone. CT head and neck was completed as well as interpreted as without acute process or fractures. COVID test on admission is: NEGATIVE Allergies Allergy/AdvReac Type Severity Reaction Status Date / Time codeine AdvReac Intermediate VOMITING Verified 07/27/22 15:09 Home Medications Medication Instructions Recorded Confirmed Type apixaban 5 mg tablet (Eliquis) 5 mg PO BID #20 tabs 09/19/20 07/27/22 Rx magnesium oxide 400 mg (241.3 mg 400 mg PO QAM #20 tabs 09/19/20 07/27/22 Rx magnesium) tablet mirtazapine 30 mg tablet 30 mg PO HS #20 tabs 09/19/20 07/27/22 Rx hydrocodone 5 mg-acetaminophen 325 1 tab PO Q6H PRN pain #30 tabs 09/20/20 07/27/22 Rx mg tablet acetaminophen 325 mg tablet 650 mg PO Q4H PRN fever or pain 10/02/20 07/27/22 History cholecalciferol (vitamin D3) 50 2,000 unit PO DAILY 10/02/20 07/27/22 History mcg (2,000 unit) capsule diclofenac sodium 1 % topical gel 1 g topical BID PRN Pain 02/19/21 07/27/22 History amiodarone 100 mg tablet 100 mg PO DAILY 12/22/21 07/27/22 History atorvastatin 10 mg tablet 10 mg PO DAILY 12/22/21 07/27/22 History docusate sodium 100 mg capsule 100 mg PO BID PRN Constipation 12/22/21 07/27/22 History iron,carbonyl 65 mg-vitamin C 125 1 tab PO DAILY 12/22/21 07/27/22 History mg tablet,delayed release (Vitron-C) metoprolol tartrate 25 mg tablet 25 mg PO BID 12/22/21 07/27/22 History ondansetron HCl 4 mg tablet 4 mg PO Q6H PRN NAUSEA/VOMITING 12/22/21 07/27/22 History potassium chloride 10 mEq 20 meq PO DAILY 12/22/21 07/27/22 History capsule,extended release insulin glargine 100 unit/mL (3 30 unit (0.3 mL) SC DAILY@1800 #15 12/31/21 07/27/22 Rx mL) subcutaneous pen (Lantus mL Solostar U-100 Insulin) metformin 500 mg tablet,extended 500 mg PO DAILY #30 tabs 12/31/21 07/27/22 Rx release 24 hr Lactobacillus acidophilus 10,000 mmu cells PO DAILY 07/27/22 07/27/22 History insulin aspart U-100 100 unit/mL 45 unit SC TIDM 07/27/22 07/27/22 History subcutaneous solution (Novolog U-100 Insulin aspart) insulin degludec 200 unit/mL (3 160 unit subcut DAILY 07/27/22 07/27/22 History mL) subcutaneous pen (Tresiba FlexTouch U-200 insulin) polyethylene glycol 3350 17 17 g PO DAILY PRN Constipation 07/27/22 07/27/22 History gram/dose oral powder (Miralax) Patient History Medical History Atrial fibrillation Closed fibular fracture hx Compression fracture L3 Depression Diabetes mellitus, type 2 Fatty liver GERD (gastroesophageal reflux disease) Hyperlipidemia Paroxysmal atrial fibrillation Polyarthritis Surgical History H/O bilateral oophorectomy H/O: hysterectomy History of colonoscopy Family History Other Heart disease Social History Smoking Status: Unknown if ever smoked Second Hand Exposure: No; Preferred Language: Mauritanian Communication Ability: Impaired Bark Spudder Required: No Beliefs That Will Affect Care: None marital status: / Current Living Situation: Alone Current Living Situation Comment: [facility] How many Children do You have: 2 Other Information That Helps Us Care for You: No Feels Safe at Home: Yes Assistive Devices: Oxygen - Continuous and Walker Review of Systems Review of Systems: REVIEW OF SYSTEMS: ANGELIKA secondary to encephalopathy Physical Exam Physical Exam: PHYSICAL EXAM: General: awake, not oriented Head: Normocephalic, atraumatic ENT: PERRLA- 4-3 brisk, no pharyngeal exudate, mucous membranes dry Neuro: AAO x 3, speech clear and appropriate, strength intact bilaterally 5/5, sensation intact and equal all extremities and dermatomes, no pronator drift Chest: equal rise and fall of the chest, no accessory muscle use, no heaves or thrills, Clear to auscultation, on room air, Cardiac: Regular rate and rhythm, telemetry reviewed, skin warm dry, cap refill <3 seconds, peripheral pulses +2 no JVD, no murmur, trace edema GI: NABS x 4 quadrants, soft, nontender to palpation, no rebound, guarding or tenderness : cai to gravity draining cloudy urine Psych: Normal mood and affect Skin: noted with bruising and abrasion to left knee, abrasions to shins. Results & Data Results & Data ([facility]) Vital Signs (Past 12 Hours) Vital Signs Temp Pulse Pulse Resp BP BP Pulse Ox 07/27/22 19:07 36.5 C 126 H 20 95 07/27/22 19:05 07/27/22 18:30 34.1 C L 154 H 41 H 91 07/27/22 18:30 89/40 L 07/27/22 18:15 75/52 L 07/27/22 18:15 34.0 C L 130 H 43 H 07/27/22 18:33 07/27/22 18:37 07/27/22 18:21 97 07/27/22 17:15 32.8 C L 105 H 20 94/60 L 96 07/27/22 16:47 32.1 C L 105 H 22 98/62 L 95 07/27/22 15:52 31.2 C L 104 H 16 94/52 L 92 07/27/22 15:00 30.6 C L 92 H 20 84/63 L 92 07/27/22 14:44 30.1 C L 73 20 81/58 L 95 07/27/22 14:33 30 C L 60 20 90/56 L 96 07/27/22 14:20 29.8 C L 70 20 74/55 L 98 07/27/22 14:15 29.8 C L 71 20 87/53 L 99 07/27/22 14:10 29.8 C L 85 20 77/55 L 100 07/27/22 14:01 29.8 C L 07/27/22 13:19 80 20 99 07/27/22 13:57 29.8 C L 96 H 20 50/32 L 100 07/27/22 13:55 90 20 100 07/27/22 13:27 30.3 C L 96 H 20 80/60 L 96 07/27/22 13:10 98 07/27/22 13:10 85 20 97 O2 Del Method O2 Flow Rate FiO2 07/27/22 19:07 Nasal Cannula 07/27/22 19:05 Nasal Cannula 4 07/27/22 18:30 07/27/22 18:30 07/27/22 18:15 07/27/22 18:15 07/27/22 18:33 Nasal Cannula 07/27/22 18:37 Nasal Cannula 07/27/22 18:21 Nasal Cannula 07/27/22 17:15 Nasal Cannula 3 07/27/22 16:47 Nasal Cannula 3 07/27/22 15:52 Nasal Cannula 3 07/27/22 15:00 Nasal Cannula 3 07/27/22 14:44 Nasal Cannula 3 07/27/22 14:33 Nasal Cannula 3 07/27/22 14:20 Nasal Cannula 3 07/27/22 14:15 Nasal Cannula 3 07/27/22 14:10 Nasal Cannula 3 07/27/22 14:01 07/27/22 13:19 High Flow Nasal Cannula 25 45 07/27/22 13:57 Nasal Cannula 4 07/27/22 13:55 Nasal Cannula 5 07/27/22 13:27 Nasal Cannula 6 07/27/22 13:10 High Flow Nasal Cannula 07/27/22 13:10 High Flow Nasal Cannula Laboratory Results Abnormal lab results 07/27/22 07/27/22 07/27/22 Range/Units 13:10 13:16 13:21 WBC (4.8-10.8) K/ul MCHC (32.0-36.0) g/dL Plt Count (130-400) K/uL MPV (9.4-12.3) fL Neut # (Auto) (1.4-6.5) K/uL Lymph # (Auto) (1.2-3.4) K/uL Immature Gran # (Auto) (0.00-0.02) K/uL Platelet Estimate (Normal) PT (9.0-12.0) Seconds INR (0.9-1.1) APTT (21.0-31.0) Seconds VBG pH 7.12 L (7.36-7.41) VBG pCO2 35 L (38-50) mmHg POC Sodium 133 L (135-144) mmol/L Sodium (136-145) mmol/L Chloride (98-107) mmol/L Carbon Dioxide (21-32) mmol/L POC Total CO2 13 L (24-31) mmol/L Anion Gap (3-11) POC BUN 64 H (7-18) mg/dl BUN (6-23) mg/dl Creatinine (0.6-1.2) mg/dl POC Creatinine 2.3 H (0.6-1.3) mg/dl BUN/Creatinine Ratio (10-20) Glucose (70-99(Fasting)) mg/dl POC Glucose > 600 H* (70-99) mg/dl POC Glucose (other) > 700 H* (70-99) mg/dl Osmolality (280-300) mOsm/kg Lactate (0.4-2.0) mmol/L Calcium (8.5-10.1) mg/dl POC Ioniz Calcium Sade 1.08 L (1.12-1.32) mmol/l Direct Bilirubin (0-0.2) mg/dl AST (13-39) U/L Alkaline Phosphatase (34-104) U/L Total Creatine Kinase (26-192) U/L Troponin I High Sens (0-14) pg/ml Albumin (3.4-5.0) gm/dl Procalcitonin (0-0.5) ng/ml Urine Appearance (Clear) Urine Protein (Negative) Urine Glucose (UA) (Negative) Urine Ketones (Negative) Urine Blood (Negative) Ur Leukocyte Esterase (Negative) Urine WBC (Auto) (0-5) /hpf Urine RBC (Auto) (0-4) /hpf U Epithel Cells (Auto) (0-5) /lpf Urine Bacteria (Auto) (Negative) 07/27/22 07/27/22 07/27/22 Range/Units 13:28 13:29 13:29 WBC 12.36 H (4.8-10.8) K/ul MCHC 31.0 L (32.0-36.0) g/dL Plt Count 55 L (130-400) K/uL MPV 12.9 H (9.4-12.3) fL Neut # (Auto) 10.77 H (1.4-6.5) K/uL Lymph # (Auto) 0.63 L (1.2-3.4) K/uL Immature Gran # (Auto) 0.12 H (0.00-0.02) K/uL Platelet Estimate Decreased L (Normal) PT 16.1 H (9.0-12.0) Seconds INR 1.5 H (0.9-1.1) APTT 33.9 H (21.0-31.0) Seconds VBG pH (7.36-7.41) VBG pCO2 (38-50) mmHg POC Sodium (135-144) mmol/L Sodium (136-145) mmol/L Chloride (98-107) mmol/L Carbon Dioxide (21-32) mmol/L POC Total CO2 (24-31) mmol/L Anion Gap (3-11) POC BUN (7-18) mg/dl BUN (6-23) mg/dl Creatinine (0.6-1.2) mg/dl POC Creatinine (0.6-1.3) mg/dl BUN/Creatinine Ratio (10-20) Glucose (70-99(Fasting)) mg/dl POC Glucose (70-99) mg/dl POC Glucose (other) (70-99) mg/dl Osmolality (280-300) mOsm/kg Lactate (0.4-2.0) mmol/L Calcium (8.5-10.1) mg/dl POC Ioniz Calcium Sade (1.12-1.32) mmol/l Direct Bilirubin (0-0.2) mg/dl AST (13-39) U/L Alkaline Phosphatase (34-104) U/L Total Creatine Kinase (26-192) U/L Troponin I High Sens (0-14) pg/ml Albumin (3.4-5.0) gm/dl Procalcitonin (0-0.5) ng/ml Urine Appearance Turbid A (Clear) Urine Protein 2+ H (Negative) Urine Glucose (UA) 2+ H (Negative) Urine Ketones 1+ H (Negative) Urine Blood 3+ H (Negative) Ur Leukocyte Esterase 3+ H (Negative) Urine WBC (Auto) >30 H (0-5) /hpf Urine RBC (Auto) 5-10 H (0-4) /hpf U Epithel Cells (Auto) 20-30 H (0-5) /lpf Urine Bacteria (Auto) 4+ H (Negative) 07/27/22 07/27/22 07/27/22 Range/Units 13:29 13:29 13:29 WBC (4.8-10.8) K/ul MCHC (32.0-36.0) g/dL Plt Count (130-400) K/uL MPV (9.4-12.3) fL Neut # (Auto) (1.4-6.5) K/uL Lymph # (Auto) (1.2-3.4) K/uL Immature Gran # (Auto) (0.00-0.02) K/uL Platelet Estimate (Normal) PT (9.0-12.0) Seconds INR (0.9-1.1) APTT (21.0-31.0) Seconds VBG pH (7.36-7.41) VBG pCO2 (38-50) mmHg POC Sodium (135-144) mmol/L Sodium 134 L (136-145) mmol/L Chloride 97 L (98-107) mmol/L Carbon Dioxide 10 L (21-32) mmol/L POC Total CO2 (24-31) mmol/L Anion Gap 27 H (3-11) POC BUN (7-18) mg/dl BUN 73 H (6-23) mg/dl Creatinine 2.46 H (0.6-1.2) mg/dl POC Creatinine (0.6-1.3) mg/dl BUN/Creatinine Ratio 29.7 H (10-20) Glucose 810 H* (70-99(Fasting)) mg/dl POC Glucose (70-99) mg/dl POC Glucose (other) (70-99) mg/dl Osmolality (280-300) mOsm/kg Lactate (0.4-2.0) mmol/L Calcium 8.2 L (8.5-10.1) mg/dl POC Ioniz Calcium Sade (1.12-1.32) mmol/l Direct Bilirubin 0.4 H (0-0.2) mg/dl AST 42 H (13-39) U/L Alkaline Phosphatase 137 H (34-104) U/L Total Creatine Kinase 732 H (26-192) U/L Troponin I High Sens 58.7 H* (0-14) pg/ml Albumin 2.8 L (3.4-5.0) gm/dl Procalcitonin 33.33 H (0-0.5) ng/ml Urine Appearance (Clear) Urine Protein (Negative) Urine Glucose (UA) (Negative) Urine Ketones (Negative) Urine Blood (Negative) Ur Leukocyte Esterase (Negative) Urine WBC (Auto) (0-5) /hpf Urine RBC (Auto) (0-4) /hpf U Epithel Cells (Auto) (0-5) /lpf Urine Bacteria (Auto) (Negative) 07/27/22 07/27/22 07/27/22 Range/Units 13:29 13:33 14:50 WBC (4.8-10.8) K/ul MCHC (32.0-36.0) g/dL Plt Count (130-400) K/uL MPV (9.4-12.3) fL Neut # (Auto) (1.4-6.5) K/uL Lymph # (Auto) (1.2-3.4) K/uL Immature Gran # (Auto) (0.00-0.02) K/uL Platelet Estimate (Normal) PT (9.0-12.0) Seconds INR (0.9-1.1) APTT (21.0-31.0) Seconds VBG pH (7.36-7.41) VBG pCO2 (38-50) mmHg POC Sodium (135-144) mmol/L Sodium (136-145) mmol/L Chloride (98-107) mmol/L Carbon Dioxide (21-32) mmol/L POC Total CO2 (24-31) mmol/L Anion Gap (3-11) POC BUN (7-18) mg/dl BUN (6-23) mg/dl Creatinine (0.6-1.2) mg/dl POC Creatinine (0.6-1.3) mg/dl BUN/Creatinine Ratio (10-20) Glucose (70-99(Fasting)) mg/dl POC Glucose > 600 H* (70-99) mg/dl POC Glucose (other) (70-99) mg/dl Osmolality 356 H* (280-300) mOsm/kg Lactate 3.4 H* (0.4-2.0) mmol/L Calcium (8.5-10.1) mg/dl POC Ioniz Calcium Sade (1.12-1.32) mmol/l Direct Bilirubin (0-0.2) mg/dl AST (13-39) U/L Alkaline Phosphatase (34-104) U/L Total Creatine Kinase (26-192) U/L Troponin I High Sens (0-14) pg/ml Albumin (3.4-5.0) gm/dl Procalcitonin (0-0.5) ng/ml Urine Appearance (Clear) Urine Protein (Negative) Urine Glucose (UA) (Negative) Urine Ketones (Negative) Urine Blood (Negative) Ur Leukocyte Esterase (Negative) Urine WBC (Auto) (0-5) /hpf Urine RBC (Auto) (0-4) /hpf U Epithel Cells (Auto) (0-5) /lpf Urine Bacteria (Auto) (Negative) 07/27/22 07/27/22 07/27/22 Range/Units 15:58 15:58 16:44 WBC (4.8-10.8) K/ul MCHC (32.0-36.0) g/dL Plt Count (130-400) K/uL MPV (9.4-12.3) fL Neut # (Auto) (1.4-6.5) K/uL Lymph # (Auto) (1.2-3.4) K/uL Immature Gran # (Auto) (0.00-0.02) K/uL Platelet Estimate (Normal) PT (9.0-12.0) Seconds INR (0.9-1.1) APTT (21.0-31.0) Seconds VBG pH 7.09 L (7.36-7.41) VBG pCO2 30 L (38-50) mmHg POC Sodium (135-144) mmol/L Sodium (136-145) mmol/L Chloride (98-107) mmol/L Carbon Dioxide 10 L (21-32) mmol/L POC Total CO2 (24-31) mmol/L Anion Gap 22 H (3-11) POC BUN (7-18) mg/dl BUN 69 H (6-23) mg/dl Creatinine 2.04 H D (0.6-1.2) mg/dl POC Creatinine (0.6-1.3) mg/dl BUN/Creatinine Ratio 33.8 H (10-20) Glucose 699 H* (70-99(Fasting)) mg/dl POC Glucose > 600 H* (70-99) mg/dl POC Glucose (other) (70-99) mg/dl Osmolality (280-300) mOsm/kg Lactate (0.4-2.0) mmol/L Calcium 7.5 L (8.5-10.1) mg/dl POC Ioniz Calcium Sade (1.12-1.32) mmol/l Direct Bilirubin (0-0.2) mg/dl AST (13-39) U/L Alkaline Phosphatase (34-104) U/L Total Creatine Kinase (26-192) U/L Troponin I High Sens (0-14) pg/ml Albumin (3.4-5.0) gm/dl Procalcitonin (0-0.5) ng/ml Urine Appearance (Clear) Urine Protein (Negative) Urine Glucose (UA) (Negative) Urine Ketones (Negative) Urine Blood (Negative) Ur Leukocyte Esterase (Negative) Urine WBC (Auto) (0-5) /hpf Urine RBC (Auto) (0-4) /hpf U Epithel Cells (Auto) (0-5) /lpf Urine Bacteria (Auto) (Negative) 07/27/22 07/27/22 07/27/22 Range/Units 18:26 19:12 19:26 WBC (4.8-10.8) K/ul MCHC (32.0-36.0) g/dL Plt Count (130-400) K/uL MPV (9.4-12.3) fL Neut # (Auto) (1.4-6.5) K/uL Lymph # (Auto) (1.2-3.4) K/uL Immature Gran # (Auto) (0.00-0.02) K/uL Platelet Estimate (Normal) PT (9.0-12.0) Seconds INR (0.9-1.1) APTT (21.0-31.0) Seconds VBG pH 7.16 L (7.36-7.41) VBG pCO2 (38-50) mmHg POC Sodium (135-144) mmol/L Sodium (136-145) mmol/L Chloride (98-107) mmol/L Carbon Dioxide (21-32) mmol/L POC Total CO2 (24-31) mmol/L Anion Gap (3-11) POC BUN (7-18) mg/dl BUN (6-23) mg/dl Creatinine (0.6-1.2) mg/dl POC Creatinine (0.6-1.3) mg/dl BUN/Creatinine Ratio (10-20) Glucose (70-99(Fasting)) mg/dl POC Glucose 531 H* 474 H* (70-99) mg/dl POC Glucose (other) (70-99) mg/dl Osmolality (280-300) mOsm/kg Lactate (0.4-2.0) mmol/L Calcium (8.5-10.1) mg/dl POC Ioniz Calcium Sade (1.12-1.32) mmol/l Direct Bilirubin (0-0.2) mg/dl AST (13-39) U/L Alkaline Phosphatase (34-104) U/L Total Creatine Kinase (26-192) U/L Troponin I High Sens (0-14) pg/ml Albumin (3.4-5.0) gm/dl Procalcitonin (0-0.5) ng/ml Urine Appearance (Clear) Urine Protein (Negative) Urine Glucose (UA) (Negative) Urine Ketones (Negative) Urine Blood (Negative) Ur Leukocyte Esterase (Negative) Urine WBC (Auto) (0-5) /hpf Urine RBC (Auto) (0-4) /hpf U Epithel Cells (Auto) (0-5) /lpf Urine Bacteria (Auto) (Negative) Diagnostic Findings Abdomen/Pelvis CT 07/27/22 12:58 CT SCAN OF THE ABDOMEN AND PELVIS WITHOUT IV CONTRAST CLINICAL HISTORY: Found down. COMPARISON STUDY: Abdominal CT dated 01/01/2012. TECHNIQUE: CT scan of the abdomen and pelvis is performed from the lung bases to the proximal femora. Images are reviewed in the axial, sagittal, and coronal planes. IV contrast was not administered for this examination. Note that the examination is significantly suboptimal without oral and IV contrast. There is motion artifact, as well as streak artifact from the arms which could not be elevated above the abdomen. A dose lowering technique was utilized adhering to the principles of ALARA. FINDINGS: Lung bases: The heart is enlarged and without pericardial effusion. The lung bases are clear noting bibasilar scarring/atelectasis. A small hiatal hernia is noted. Liver: The unenhanced liver is cirrhotic in morphology and heterogeneous in attenuation. There is nodularity of the hepatic surface contour. There is no intrahepatic biliary ductal dilatation. Gallbladder: Surgically absent. Spleen: Normal in size and attenuation. Pancreas: The unenhanced pancreas is atrophic and grossly unremarkable. Adrenal glands: Unremarkable. Kidneys: The unenhanced kidneys demonstrate mild cortical atrophy and are without hydronephrosis. There are tiny foci of gas within the right renal collecting system. Asymmetric Extraneous on the right. There are no renal calculi identified. There is no evidence of contour deforming renal mass lesion. Abdominal vasculature: The abdominal aorta is normal in course and caliber noting mild atherosclerotic calcification. Bowel: There are scattered colonic diverticula without CT evidence of acute diverticulitis. No bowel obstruction is seen. The appendix is well-visualized and normal. Peritoneum: There is no intraperitoneal free air or abdominal ascites. Lymphadenopathy: None. Pelvic viscera: The bladder is decompressed around a Cai catheter and could not be assessed. Gas within the bladder lumen is likely related to instrumentation. The uterus is surgically absent. No adnexal lesion is seen. Skeletal structures: The skeletal structures are osteopenic. There are chronic appearing compression deformities of T11, T12, L1, L2, and L3. Several views are new from 2012. Lumbosacral spondylosis is observed. No lytic or blastic lesions are seen. IMPRESSION: 1. There is asymmetric right-sided perinephric stranding/inflammation with tiny foci of nonspecific gas within the right renal pelvis. Correlate clinically and with urinalysis for evidence of right-sided pyelonephritis. Emphysematous infection is not excluded. 2. Cirrhotic liver morphology. 3. Cardiomegaly. 4. Additional findings as above. ACT 112: Negative or not required by law. Electronically signed by: Jeronimo Orosco M.D. 07/27/2022 2:[address] 07/27/22 12:58 CT cervical spine wo con CLINICAL HISTORY: found down TECHNIQUE: Multidetector row helical CT of the cervical spine was performed without administration of intravenous contrast. Coronal and sagittal reformations were obtained. Automated dose lowering techniques and/or adjustment according to patient size were utilized for this exam. Comparison: None available at the time of this dictation. FINDINGS: No acute fractures or subluxations are identified. Degenerative changes are seen in the visualized spine. Transverse ligament calcification is noted. The alignment is normal. Soft tissues are unremarkable. IMPRESSION: Degenerative changes without evidence of acute bony injury. ACT 112: Negative or not required by law. Electronically signed by: Preston Carrasquillo M.D. 07/27/2022 2:10 PM Chest X-Ray 07/27/22 12:58 SINGLE VIEW CHEST CLINICAL HISTORY: Found down. FINDINGS: An AP, portable, supine chest radiograph is compared to study dated 12/22/2021. The heart is enlarged noting atherosclerotic calcification of the thoracic aorta. The pulmonary vasculature is noncongested. Chronic interstitial thickening is similar to previous. There is mild bibasilar scarring/atelectasis. No airspace consolidation or large pleural effusion is identified. No pneumothorax is seen. The skeletal structures are osteopenic. The bony thorax is grossly intact. IMPRESSION: Cardiomegaly with no acute cardiopulmonary abnormality identified. ACT 112: Negative or not required by law. Electronically signed by: Jeronimo Orosco M.D. 07/27/2022 1:[address] 07/27/22 12:58 CT head/brain wo con CLINICAL HISTORY: 82 years-old Female with found down. Acute head trauma TECHNIQUE: Multiple axial CT images of the head were obtained without contrast. A dose lowering technique was utilized adhering to the principles of ALARA. CT DOSE: 1516.11 mGy.cm COMPARISON: 09/09/2020 FINDINGS: No acute intracranial hemorrhage, midline shift, intracranial mass, hydrocephalus, territorial ischemia or abnormal extra-axial collection. Involutional changes with ventriculomegaly redemonstrated, likely on an ex vacuo basis. The calvarium is intact. Partially imaged nasal bone fractures are favored to be chronic. Prior bilateral lens repair. The paranasal sinuses, mastoid air cells, and middle ear cavities are clear. IMPRESSION: No acute intracranial abnormality or calvarial fracture. ACT 112: Negative or not required by law. The above report was generated using voice recognition software. It may contain grammatical, syntax or spelling errors. Electronically signed by: Alex Herrera M.D. 07/27/2022 2:01 PM Pelvis X-Ray 07/27/22 12:58 XR pelvis 1-2V routine CLINICAL HISTORY: found down TECHNIQUE: A single frontal view of the pelvis was obtained. Comparison: Comparison is made to pelvic radiograph 09/09/2020 FINDINGS: Of note, the top of the iliac crests are not within the field of view. There is no evidence of an acute fracture. Degenerative changes are seen in the hip joints and lumbar spine. No soft tissue abnormality is seen. IMPRESSION: Degenerative changes are seen. No pelvic ring fractures are visualized. ACT 112: Negative or not required by law. Electronically signed by: Preston Carrasquillo M.D. 07/27/2022 1:24 PM Medications Administered Home Medications apixaban 5 mg tablet (Eliquis) 5 mg PO BID #20 tabs 09/19/20 [Rx Confirmed 07/27/22] magnesium oxide 400 mg (241.3 mg magnesium) tablet 400 mg PO QAM #20 tabs 09/19/20 [Rx Confirmed 07/27/22] mirtazapine 30 mg tablet 30 mg PO HS #20 tabs 09/19/20 [Rx Confirmed 07/27/22] hydrocodone 5 mg-acetaminophen 325 mg tablet 1 tab PO Q6H PRN pain #30 tabs 09/20/20 [Rx Confirmed 07/27/22] acetaminophen 325 mg tablet 650 mg PO Q4H PRN fever or pain 10/02/20 [History Confirmed 07/27/22] cholecalciferol (vitamin D3) 50 mcg (2,000 unit) capsule 2,000 unit PO DAILY 10/02/20 [History Confirmed 07/27/22] diclofenac sodium 1 % topical gel 1 g topical BID PRN Pain 02/19/21 [History Confirmed 07/27/22] amiodarone 100 mg tablet 100 mg PO DAILY 12/22/21 [History Confirmed 07/27/22] atorvastatin 10 mg tablet 10 mg PO DAILY 12/22/21 [History Confirmed 07/27/22] docusate sodium 100 mg capsule 100 mg PO BID PRN Constipation 12/22/21 [History Confirmed 07/27/22] iron,carbonyl 65 mg-vitamin C 125 mg tablet,delayed release (Vitron-C) 1 tab PO DAILY 12/22/21 [History Confirmed 07/27/22] metoprolol tartrate 25 mg tablet 25 mg PO BID 12/22/21 [History Confirmed 07/27/22] ondansetron HCl 4 mg tablet 4 mg PO Q6H PRN NAUSEA/VOMITING 12/22/21 [History Confirmed 07/27/22] potassium chloride 10 mEq capsule,extended release 20 meq PO DAILY 12/22/21 [History Confirmed 07/27/22] insulin glargine 100 unit/mL (3 mL) subcutaneous pen (Lantus Solostar U-100 Insulin) 30 unit (0.3 mL) SC DAILY@1800 #15 mL 12/31/21 [Rx Confirmed 07/27/22] metformin 500 mg tablet,extended release 24 hr 500 mg PO DAILY #30 tabs 12/31/21 [Rx Confirmed 07/27/22] Lactobacillus acidophilus 10,000 mmu cells PO DAILY 07/27/22 [History Confirmed 07/27/22] insulin aspart U-100 100 unit/mL subcutaneous solution (Novolog U-100 Insulin aspart) 45 unit SC TIDM 07/27/22 [History Confirmed 07/27/22] insulin degludec 200 unit/mL (3 mL) subcutaneous pen (Tresiba FlexTouch U-200 insulin) 160 unit subcut DAILY 07/27/22 [History Confirmed 07/27/22] polyethylene glycol 3350 17 gram/dose oral powder (Miralax) 17 g PO DAILY PRN Constipation 07/27/22 [History Confirmed 07/27/22] Active Medications Acetaminophen (Acetaminophen 325 Mg Tab) 650 mg PO Q4H PRN PRN Reason: fever or pain Stop: 08/26/22 19:43 Amiodarone HCl (Amiodarone 200 Mg Tab) 100 mg PO DAILY TITI Stop: 08/27/22 08:59 Apixaban (Apixaban 5 Mg Tablet) 5 mg PO BID TITI Stop: 08/26/22 20:59 Last Admin: 07/27/22 19:53 Dose: Not Given Atorvastatin Calcium (Atorvastatin 10 Mg Tab) 10 mg PO DAILY TITI Stop: 08/27/22 08:59 Dextrose (Dextrose 50% 50 Ml Syringe) 25 - 50 ml IV UD PRN; Protocol PRN Reason: Hypoglycemia Protocol Stop: 08/26/22 14:47 Diclofenac Sodium (Diclofenac Sod 1% Gel 100 Gm Tube) 1 gm EXT BID PRN; Protocol PRN Reason: Pain Stop: 08/26/22 19:43 Docusate Sodium (Docusate Sodium 100 Mg Cap) 100 mg PO BID PRN PRN Reason: Constipation Stop: 08/26/22 19:43 Glucagon (Glucagon For Inj 1 Mg Vial) 1 mg SQ UD PRN; Protocol PRN Reason: Hypoglycemia Protocol Stop: 08/26/22 14:47 Glucose (Glucose 40% Gel 15 Gm Tube) 15 - 30 gm PO UD PRN; Protocol PRN Reason: Hypoglycemia Protocol Stop: 08/26/22 14:47 Glucose (Glucose 10 Tab/Tube) 4 - 8 tab PO UD PRN; Protocol PRN Reason: Hypoglycemia Treatment Stop: 08/26/22 14:47 Insulin Human Regular 250 (units/ Sodium Chloride) 250 mls @ 11.8 mls/hr IV .[id number] TITI; Protocol Stop: 08/26/22 14:59 Last Titration: 07/27/22 19:30 Dose: 11.8 units/hr, 11.8 mls/hr Potassium Chloride/Sodium Chloride (1/2 Nss + 20meq Kcl 1000ml) 20 meq in 1,000 mls @ 150 mls/hr IV .Q6H40M TITI Stop: 08/26/22 17:14 Last Admin: 07/27/22 17:31 Dose: 150 mls/hr Calcium Gluconate 2,000 mg/ (Dextrose) 70 mls @ 240 mls/hr IV NOW ONE Stop: 07/27/22 20:02 Last Admin: 07/27/22 19:56 Dose: 240 mls/hr Cefepime HCl 1,000 mg/ Syringe 10 mls @ 5 mls/min IV Q24H [facility]; Protocol Stop: 08/02/22 13:59 Norepinephrine Bitartrate (Levophed/D5w) 4 mg in 250 mls @ 13.313 mls/hr IV .[id number] [facility]; Protocol Stop: 08/26/22 19:44 Last Admin: 07/27/22 19:52 Dose: 0.05 mcg/kg/min, 13.3 mls/hr Insulin Aspart (Insulin Aspart Per Unit) 0 units SC ACHS [facility] Stop: 08/26/22 16:29 Last Admin: 07/27/22 18:22 Dose: Not Given Lactobacillus Acidophilus (Advanced Probiotic 1250 Mg Capsule) 2 cap PO DAILY [facility] Stop: 08/27/22 08:59 Magnesium Oxide (Magnesium Oxide 400 Mg Tab) 400 mg PO QAM [facility] Stop: 08/27/22 08:59 Metoprolol Tartrate (Metoprolol Tartrate 25 Mg Tab) 25 mg PO BID [facility] Stop: 08/26/22 20:59 Last Admin: 07/27/22 19:53 Dose: Not Given Miscellaneous (Carbohydrates For Hypoglycemia ) 15 - 30 gm PO UD PRN PRN Reason: Hypoglycemia Protocol Stop: 08/26/22 14:47 Miscellaneous (Pending D5 1/2ns+20meq Kcl Ivf) 1 each N/A Q2H [facility] Stop: 08/26/22 14:59 Last Admin: 07/27/22 18:23 Dose: Not Given Miscellaneous Information (Pharmacy Glycemic Mgmt Consult) 1 each N/A UD PRN PRN Reason: Consult Stop: 08/26/22 14:51 Polyethylene Glycol (Polyethylene (Miralax) 17 Gm Pack) 17 gm PO DAILY PRN PRN Reason: Constipation Stop: 08/26/22 19:43 Potassium Chloride (Potassium Chloride Crtab 20 Meq Tabcr) 20 meq PO DAILY [facility] Stop: 08/27/22 08:59 Vitamin D (Cholecalciferol 1,000 Units 25 Mcg Tab) 2,000 units PO DAILY [facility] Stop: 08/27/22 08:59 ECG Additional Comments: Vent. Rate : 091 BPM Atrial Rate : 078 BPM P-R Int : 000 ms QRS Dur : 068 ms QT Int : 390 ms P-R-T Axes : 000 -59 043 degrees QTc Int : 479 ms Probably atrial fibrillation Left axis deviation Low voltage QRS Abnormal ECG Coding Level of Care Code Critical Care 1st 30-74 mins Diagnoses DKA (diabetic ketoacidosis) E13.11 Diabetes mellitus complication detail: with coma Diabetes mellitus type: other specified (including ROSIO) Sepsis A41.9; R65.20; N17.9 Acute renal failure type: unspecified Sepsis acute organ dysfunction status: with acute organ dysfunction Sepsis type: sepsis due to unspecified organism Severe sepsis acute organ dysfunction type: acute renal failure Severe sepsis shock status: unspecified WEST (acute kidney injury) N17.9 Acute metabolic encephalopathy G93.41 Elevated troponin R77.8 Paroxysmal atrial fibrillation I48.0 Pyelonephritis N12 (1) DKA (diabetic ketoacidosis) Diabetes mellitus complication detail: with coma Diabetes mellitus type: other specified (including ROSIO) Qualified Code(s): E13.11 - Other specified diabetes mellitus with ketoacidosis with coma (2) Sepsis Acute renal failure type: unspecified Sepsis acute organ dysfunction status: with acute organ dysfunction Sepsis type: sepsis due to unspecified organism Severe sepsis acute organ dysfunction type: acute renal failure Severe sepsis shock status: unspecified Qualified Code(s): A41.9 - Sepsis, unspecified organism; R65.20 - Severe sepsis without septic shock; N17.9 - Acute kidney failure, unspecified
[2022-07-27] MEDS ORDERED: STAT IV STA (19:27)
[2022-07-27] MEDS ORDERED: NORMOSOL-R 500 ML IV ONE (19:29)
[2022-07-27] MEDS ORDERED: ACETAMINOPHEN 325 MG TAB PO PRN (19:44)
[2022-07-27] MEDS ORDERED: CALCIUM GLUCONATE 10% 2,000 MG in DEXTROSE 5% 50 ML IV ONE (19:45)
[2022-07-27] MEDS: NOREPINEPHRINE/D5W 4 MG/250 ML PLCT IV SCH ×2 (19:52→22:30)
[2022-07-27] MEDS: METOPROLOL TARTRATE 25 MG TAB PO SCH (19:53)
[2022-07-27] MEDS: APIXABAN 5 MG TABLET PO SCH (19:53)
[2022-07-27] MEDS ORDERED: SODIUM BICARB 8.4% INJ 50 MEQ/50 ML SYR IV STA (20:05)
[2022-07-27 20:09] LABS: BUN Creatinine Ratio 32.9 (10-20); Calcium 7.2 mg/dl (8.5-10.1); Creatinine Clr Calc Pharmacy 18.4 ml/min; Est GFR (African American) 24.4 ml/min; Est GFR (Non-African American) 21.1 ml/min; Magnesium 1.6 mg/dl (1.7-2.4); Phosphorus 3.4 mg/dl (2.5-4.9); Potassium 3.5 mmol/L (3.5-5.1); Troponin I High Sensitivity 59.4 pg/ml (0-14)
[2022-07-27] MEDS ORDERED: CEFEPIME 1,000 MG in SYRINGE 0 ML IV SCH (22:00)
--- NOTE | 2022-07-27 22:44 | Procedure Note ---
Procedure Note Date of Service July 27, 2022 Note ARTERIAL LINE PROCEDURE NOTE: Procedure: Arterial Line Placement- direct ultrasound guidance APC: Manny HAINES ([facility]) Attending: Dr. Choe Indication: Monitoring on Pressors Anesthesia: [x]Lidocaine 1% Consent was not obtained due to urgent need for accurate hemodynamic monitoring. Verbal discussion with the patient was had. A time-out was completed verifying correct patient, procedure, site, positioning, and implant(s) or special equipment if applicable. Allens test was performed to ensure adequate perfusion. Patients LEFT wrist was prepped and draped in the usual sterile fashion. Ultrasound guidance was used to aid needle placement. A 20g Arrow arterial line was introduced into the LEFT RADIAL artery, brisk blood return noted and wire was advanced without resistance. The catheter was threaded, and the needle was removed with appropriate blood return, pressure tubing was connected. Good waveform was observed. The patient tolerated the procedure well. Line was secured with suture and sterile tegaderm. Blood Loss: Minimal Complications: No immediate complications noted Procedural Ultrasound Guidance: Procedure Date: 2229 Indication: Hemodyanmic monitoring, vasopressor use, frequent blood draws Attending: Dr. Choe Artery Identified: YES Direct real time guidance: YES Complications: NONE Patient tolerated procedure: WELL Coding
[2022-07-27] MEDS: VASOPRESSIN 20 UNITS in 0.9 % SODIUM CHLORIDE 100 ML IV SCH (22:50)
[2022-07-27] MEDS: MAGNESIUM SULFATE / D5W 1 GM/100 ML BAG IV SCH ×2 (22:51→23:40)
[2022-07-27] MEDS ORDERED: AMIODARONE 360MG / 200ML D5W IV ONE (22:59)
[2022-07-27] MEDS ORDERED: 0.2 MICRON FILTER SET 1 EACH IV ONE (23:14)
[2022-07-27] MEDS ORDERED: AMIODARONE / D5W 360 MG/200 ML BAG IV ONE (23:15)
[2022-07-27 23:18] LABS: iSTAT Arterial Blood Gas HCO3 12 meg/L (19-24); iSTAT Arterial Blood Gas pCO2 24 mmHg (35-46); iSTAT Arterial Blood Gas pO2 105 mmHg (80-95); iSTAT Carbon Dioxide 13 mmol/L (24-31); iSTAT Site Art Line
[2022-07-28 00:01] LABS: BUN Creatinine Ratio 35.6 (10-20); Calcium 7.8 mg/dl (8.5-10.1); Creatinine Clr Calc Pharmacy 20.6 ml/min; Est GFR (African American) 27.9 ml/min; Est GFR (Non-African American) 24.1 ml/min; Magnesium 1.9 mg/dl (1.7-2.4); Phosphorus 2.4 mg/dl (2.5-4.9); Potassium 3.6 mmol/L (3.5-5.1)
[2022-07-28] MEDS ORDERED: POTASSIUM CHLORIDE 20 MEQ/15 ML UDC PO STA (00:28)
[2022-07-28] MEDS ORDERED: PENDING D5 1/2NS+20mEq KCL IVF SCH (00:45)
[2022-07-28] MEDS ORDERED: ACETAMINOPHEN 1,000 MG/100 ML VIAL IV STA (01:45)
[2022-07-28] MEDS: D5W AND 1/2NSS + 20MEQ KCL 20 MEQ/1,000 ML BAG IV SCH ×3 (01:52→18:40)
[2022-07-28] MEDS: POTASSIUM CHLORIDE / WTR 10 MEQ/100 ML PLCT IV SCH ×2 (01:53→03:28)
[2022-07-28] MEDS: MAGNESIUM SULFATE / D5W 1 GM/100 ML BAG IV SCH (02:10)
[2022-07-28] MEDS ORDERED: Nursing to Pharmacy Communication SCH (02:45)
[2022-07-28] MEDS ORDERED: PIPERACILLIN/TAZOBACTAM 3.375 GM in DEXTROSE 5% 100 ML IV ONE (03:00)
[2022-07-28 04:32] LABS: BUN Creatinine Ratio 38.2 (10-20); Calcium 7.6 mg/dl (8.5-10.1); Creatinine Clr Calc Pharmacy 22.3 ml/min; Est GFR (African American) 30.9 ml/min; Est GFR (Non-African American) 26.6 ml/min; Magnesium 2.4 mg/dl (1.7-2.4); Phosphorus 1.4 mg/dl (2.5-4.9); Potassium 4.5 mmol/L (3.5-5.1)
[2022-07-28 05:02] LABS: A calco-baum cmplx NotReported Not Detected (NotDetected); Bact fragilis Not Reported Not Detected (NotDetected); C auris Not Reported Not Detected (NotDetected); CTX-M Resistant Gene Not Detected (NotDetected); Calbicans Not Reported Not Detected (NotDetected); Candida glabrata Not Reported Not Detected (NotDetected); Candida krusei Not Reported Not Detected (NotDetected); Cneoformans/gatti Not Reported Not Detected (NotDetected); Cparapsilosis Not Reported Not Detected (NotDetected); Ctropicalis Not Reported Not Detected (NotDetected); E cloacae compx Not Reported Not Detected (NotDetected); Efaecalis Not Reported Not Detected (NotDetected); Efaecium Not Reported Not Detected (NotDetected); Enterobacterales DETECTED (NotDetected); Enterobacterales Not Reported DETECTED (NotDetected); Escherichia coli Not Reported Not Detected (NotDetected); H influenzae Not Reported Not Detected (NotDetected); IMP Resistant Gene Not Detected (NotDetected); K aerogenes Not Reported Not Detected (NotDetected); KPC Resistant Gene Not Detected (NotDetected); Koxytoca Not Reported Not Detected (NotDetected); Kpneumoniae grp Not Reported DETECTED (NotDetected); Lmonocyt Not Reported Not Detected (NotDetected); N meningitidis Not Reported Not Detected (NotDetected); NDM Resistant Gene Not Detected (NotDetected); OXA 48 Like Resistant Gene Not Detected (NotDetected); P aeruginosa Not Reported Not Detected (NotDetected); Proteus spp Not Reported Not Detected (NotDetected); Salmonella spp Not Reported Not Detected (NotDetected); Smarcescens Not Reported Not Detected (NotDetected); Staph lugdunensis Not Reported Not Detected (NotDetected); Staph spp. Not Reported Not Detected (NotDetected); Staphaureus Not Reported Not Detected (NotDetected); Staphepi Not Reported Not Detected (NotDetected); Stenmaltophilia Not Reported Not Detected (NotDetected); Strep agal(GrpB) Not Reported Not Detected (NotDetected); Strep pneum Not Reported Not Detected (NotDetected); Strep pyog (GrpA) Not Reported Not Detected (NotDetected); Strep spp Not Reported Not Detected (NotDetected); VIM Resistant Gene Not Detected (NotDetected); mcr-1 Colistin Resistant Gene Not Detected (NotDetected)
[2022-07-28 05:10] LABS: Klebsiella pneumoniae group DETECTED (NotDetected)
[2022-07-28] MEDS: AMIODARONE / D5W 360 MG/200 ML BAG IV SCH ×2 (06:02→15:50)
[2022-07-28] MEDS: VASOPRESSIN 20 UNITS in 0.9 % SODIUM CHLORIDE 100 ML IV SCH ×3 (06:20→23:19)
[2022-07-28 07:41] LABS: Estimated Average Glucose 378 mg/dl; Hemoglobin A1C 14.8 % (4.5-5.6)
[2022-07-28] MEDS: INSULIN ASPART PER UNIT SC SCH ×4 (07:50→21:00)
[2022-07-28] MEDS: NOREPINEPHRINE/D5W 4 MG/250 ML PLCT IV SCH ×3 (07:52→20:05)
[2022-07-28] MEDS: ATORVASTATIN 10 MG TAB PO SCH (07:59)
[2022-07-28] MEDS: APIXABAN 5 MG TABLET PO SCH (07:59)
[2022-07-28] MEDS: POTASSIUM CHLORIDE CRTAB 20 MEQ TABCR PO SCH (08:00)
[2022-07-28 08:01] LABS: BUN Creatinine Ratio 37.4 (10-20); Basophils % (auto) 0.6 %; Calcium 7.3 mg/dl (8.5-10.1); Creatinine Clr Calc Pharmacy 23.4 ml/min; Dohle Bodies 2+; Echinocytes 1+; Eosinophils # (auto) 0.02 K/uL (0-0.50); Eosinophils % (auto) 0.1 %; Est GFR (African American) 31.3 ml/min; Hematocrit (blood only) 31.8 % (34.1-44.9); Hemoglobin 10.9 g/dl (12.0-16.0); Immature Granulocytes # (auto) 0.64 K/uL (0.00-0.02); Immature Granulocytes % (auto) 4.1 %; Lymphocytes # (auto) 1.21 K/uL (1.2-3.4); Lymphocytes % (auto) 7.8 %; Mean Corpuscular Hemoglobin 27.7 pg (25.0-34.0); Mean Corpuscular Hgb Conc 34.3 g/dL (32.0-36.0); Mean Corpuscular Volume 80.9 fL (80.0-100.0); Mean Platelet Volume 12.5 fL (9.4-12.3); Monocytes # (auto) 1.58 K/uL (0.24-0.82); Monocytes % (auto) 10.2 %; Neutrophils # (auto) 11.98 K/uL (1.4-6.5); Neutrophils % (auto) 77.2 %; Nucleated RBC # (auto) 0.03 K/uL (0-0); Nucleated RBC % (auto) 0.2 %; Platelet Count 53 K/uL (130-400); Potassium 4.6 mmol/L (3.5-5.1); RDW Coefficient of Variation 13.9 % (11.5-14.5); RDW Standard Deviation 41.4 fL (36.4-46.3); Red Blood Count 3.93 M/uL (3.93-5.22); White Blood Count 15.53 K/ul (4.8-10.8)
[2022-07-28 08:05] LABS: Magnesium 2.3 mg/dl (1.7-2.4); Phosphorus 1.4 mg/dl (2.5-4.9)
[2022-07-28] MEDS: ICU ELECTROLYTE REPLACEMENT PROTOCOL SCH ×2 (08:08→20:54)
[2022-07-28] MEDS ORDERED: SODIUM PHOSPHATE 3 MMOL/1 ML INFUSION IV STA ×2 (08:11→20:57)
--- NOTE | 2022-07-28 08:45 | XRay Report ---
XR chest 1V portable CLINICAL HISTORY: evaluate pulmonary metcalf TECHNIQUE: Single frontal radiograph of the chest was obtained. Comparison: Comparison is made to chest radiograph 07/27/2022 FINDINGS: No lines and tubes are seen. Calcified aortic knob is seen. The lungs are clear. No evidence of pleur al effusion or pneumothorax. IMPRESSION: No acute abnormalities and in particular no evidence of pneumonia. ACT 112: Negative or not required by law. Electronically signed by: Preston Carrasquillo M.D. 07/28/2022 8:43 AM
[2022-07-28] MEDS: LANTUS PER UNIT CHARGE SQ SCH (08:51)
[2022-07-28] MEDS ORDERED: SODIUM PHOSPHATE 15 MMOL in SODIUM CHLORIDE 0.9% 250 ML IV ONE (09:00)
[2022-07-28] MEDS ORDERED: NON-FORMULARY MEDICATION (Iron,Carbonyl-Vitamin C [Vitron-C] 65 mg iron- 125 mg Tablet,Del PO SCH (09:00)
--- NOTE | 2022-07-28 09:44 | Critical Care Progress Note ---
Date of Service July 28, 2022 Assessment & Plan (1) DKA (diabetic ketoacidosis): (2) Sepsis: (3) WEST (acute kidney injury): (4) Acute metabolic encephalopathy: (5) Elevated troponin: (6) Paroxysmal atrial fibrillation: (7) Pyelonephritis: Plan Reason Critically Ill: 82 YOF found down at home, arrived hypothermic, in DKA and septic shock from likely pyelonephritis Neuro - Metabolic Encephalopathy, CAM ICU: [facility] - Supportive care at this time reversing DKA and sepsis care with abx, IVF, vasopressors - She is on anticoagulation at home for her afib- intial head CT negative for any bleed or acute process- If neurological changes occur - repeat non con head CT - NO focal deficits noted Cardiac - Shock, Afib with RVR, HTN, Elevated troponin - Shock multifactorial- hypovolemia with DKA and septic shock- - AFIB with RVR- on amiodarone at home. Continue with IV - Adding digoxin 250 mcg ivx1 then 125mcg 6 hours later then daily - awaiting echo report -Continue with maintenance fluids D5 half-normal with 20 of K: Making urine -Levophed decreasing continue vasopressin - Hold antihypertensives - unable to take PO, previously on Eliquis, will convert to Lovenox -Risk-benefit ratio at high risk for embolic phenomenon versus bleeding - HScTNI in the 50s chetna coyle at this time- trend Respiratory - No acute needs GI - No acute needs - NPO RENAL/LYTES - AGAP Metabolic Acidosis: Improving WEST: Hypophosphatemia improving - CK not profoundly elevated - AGAP acidosis secondary to DKA:DKA resolved - Replace electrolytes per ICU protocol - Pyelonephritis, UTI complicated see below ID section cai to gravity ENDO - DKA - Normosol until BG <250 then change to dextrose containing fluids - Insulin infusion - electrolyte management HEME - No acute needs ID - Pyelonephritis, septic shock, gram-negative bacteremia -De-escalate to Rocephin 1 g daily -Gram-negative bacilli in urine and blood cultures LINES/IV ACCESS - PIV, Cai -Consider PICC placement versus central venous access, DNR/DNI DVT PROPHYLAXIS - SCDS, Lovenox DISPO: ICU I updated the patient's daughter. She reports that she routinely visits her mother 2-3 times a month and is able to complete tasks that she otherwise might have difficulty with. Otherwise she lives independently is able to get her Meals on Wheels and lives a high functional status. She was last normal on [place] via telephone discussion. Given the degree of lab abnormality did not feel that she was incapacitated for an extended period. I have personally spent 55 minutes of critical care time in the direct management of this patient. This is a life/limb threatening event. This includes time spent evaluating patient, direct bedside care, chart review, placing orders, interpretation of diagnostic studies, discussion with consultants, patient, and family members, as well as other required patient management activities. This time is exclusive of all separately billable procedures, and separate from and in addition to any other critical care service time. Admission and Anticipated Discharge Date Admission Date: July 27, 2022 Subjective no overnight events. Lab values improving Review of Systems Review of Systems: Unobtainable due to cognitive status Results & Data Results & Data ([facility]) Vital Signs (Past 12 Hours) Vital Signs Temp Pulse Resp BP Pulse Ox O2 Del Method O2 Flow Rate 07/28/22 06:00 37.9 C H 114 H 34 H 97 07/28/22 05:31 38.0 C H 120 H 38 H 94 07/28/22 05:31 94/68 L 07/28/22 05:30 38.0 C H 131 H 38 H 96 07/28/22 05:00 38.0 C H 117 H 41 H 97 07/28/22 04:30 38.1 C H 127 H 41 H 96 07/28/22 04:30 121/53 L 07/28/22 04:15 38.1 C H 120 H 36 H 97 07/28/22 04:15 106/68 07/28/22 04:07 38.1 C H 128 H 34 H 97 07/28/22 04:07 84/48 L 07/28/22 04:02 38.0 C H 124 H 43 H 97 07/28/22 04:02 66/42 L 07/28/22 04:00 38.0 C H 128 H 38 H 96 07/28/22 03:46 37.9 C H 130 H 43 H 98 07/28/22 03:45 37.9 C H 133 H 42 H 98 07/28/22 03:15 38.3 C H 124 H 30 H 111/73 97 07/28/22 03:30 36.4 C L 120 H 40 H 97 07/28/22 03:30 82/62 L 07/28/22 03:00 38.3 C H 134 H 44 H 98 07/28/22 03:00 106/72 07/28/22 02:45 38.4 C H 147 H 40 H 97 07/28/22 02:45 97/70 L 07/28/22 02:31 38.4 C H 141 H 46 H 96 07/28/22 02:31 80/56 L 07/28/22 02:30 38.4 C H 143 H 43 H 97 07/28/22 02:15 38.3 C H 163 H 45 H 96 07/28/22 02:15 127/83 07/28/22 02:00 38.3 C H 167 H 44 H 98 07/28/22 02:00 106/82 07/28/22 01:45 98/73 L 07/28/22 01:45 38.2 C H 44 H 98 07/28/22 01:30 38.1 C H 153 H 44 H 98 07/28/22 01:30 100/74 07/28/22 01:15 100/76 07/28/22 01:15 38.0 C H 46 H 98 07/28/22 01:01 37.9 C H 43 H 99 07/28/22 01:01 106/65 07/28/22 01:00 37.9 C H 43 H 98 07/28/22 00:46 37.8 C H 129 H 45 H 96 07/28/22 00:46 122/77 07/28/22 00:30 37.7 C H 44 H 97 07/28/22 00:16 122/76 07/28/22 00:16 37.6 C H 147 H 35 H 97 07/28/22 00:00 37.5 C 124 H 46 H 97 07/28/22 00:00 82/65 L 07/27/22 23:45 105/73 07/27/22 23:45 37.4 C 155 H 44 H 96 07/27/22 23:30 37.3 C 149 H 42 H 98 07/27/22 23:30 98/72 L 07/27/22 23:16 37.2 C 140 H 47 H 97 07/27/22 23:16 100/56 L 07/27/22 23:00 37.2 C 45 H 99 07/27/22 23:00 95/62 L 07/27/22 22:47 77/50 L 07/27/22 22:47 37.2 C 160 H 47 H 100 07/27/22 22:30 36.9 C 148 H 42 H 100 07/27/22 22:00 36.9 C 142 H 44 H 100 07/27/22 21:49 36.8 C 155 H 46 H 97 07/27/22 21:49 79/47 L 07/27/22 21:46 36.8 C 152 H 43 H 97 07/27/22 21:46 66/52 L 07/27/22 21:40 161/117 H 07/27/22 21:40 36.7 C 152 H 39 H 97 07/27/22 21:37 172/148 H 07/27/22 21:37 36.7 C 157 H 42 H 99 07/27/22 23:58 Nasal Cannula 4 Critical Care Results & Data Vital Signs (Past 12 Hours) Vital Signs Temp Pulse Resp BP Pulse Ox O2 Del Method O2 Flow Rate 07/28/22 12:00 37.6 C H 112 H 32 H 98 07/28/22 11:45 37.6 C H 115 H 32 H 99 07/28/22 11:45 123/82 07/28/22 11:32 37.7 C H 126 H 34 H 99 07/28/22 11:32 89/66 L 07/28/22 11:30 37.7 C H 117 H 34 H 99 07/28/22 11:00 37.8 C H 113 H 32 H 100 07/28/22 10:46 37.8 C H 115 H 32 H 98 07/28/22 10:46 115/65 07/28/22 10:54 113 H 07/28/22 10:31 37.8 C H 120 H 47 H 97 07/28/22 10:31 121/70 07/28/22 10:30 37.8 C H 122 H 45 H 99 07/28/22 10:15 37.8 C H 120 H 39 H 99 07/28/22 10:15 141/77 H 07/28/22 10:00 37.8 C H 116 H 41 H 99 07/28/22 10:00 117/95 07/28/22 09:46 115/85 07/28/22 09:46 37.8 C H 119 H 40 H 99 07/28/22 09:45 37.8 C H 116 H 37 H 97 07/28/22 09:30 37.9 C H 114 H 36 H 97 07/28/22 09:30 123/81 07/28/22 09:16 37.9 C H 117 H 35 H 98 07/28/22 09:16 103/77 07/28/22 09:15 37.9 C H 126 H 36 H 99 07/28/22 09:04 134/85 07/28/22 09:04 37.9 C H 123 H 41 H 100 07/28/22 09:00 37.9 C H 106 H 39 H 99 07/28/22 08:46 37.9 C H 120 H 40 H 98 07/28/22 08:45 37.9 C H 117 H 43 H 97 07/28/22 08:31 37.9 C H 118 H 39 H 98 07/28/22 08:31 90/67 L 07/28/22 08:30 37.9 C H 118 H 39 H 98 07/28/22 08:15 37.8 C H 117 H 42 H 98 07/28/22 08:15 141/89 H 07/28/22 08:02 37.8 C H 115 H 32 H 98 07/28/22 08:02 107/87 07/28/22 08:00 37.9 C H 122 H 40 H 99 07/28/22 08:00 128/75 07/28/22 07:57 123/78 07/28/22 07:57 37.8 C H 111 H 38 H 98 07/28/22 07:46 37.9 C H 126 H 32 H 98 07/28/22 07:46 115/65 07/28/22 07:45 37.9 C H 120 H 33 H 98 07/28/22 07:30 37.9 C H 117 H 26 H 99 07/28/22 07:30 107/75 07/28/22 07:15 37.9 C H 119 H 26 H 99 07/28/22 07:15 117/98 07/28/22 07:01 37.9 C H 120 H 26 H 96 07/28/22 07:01 109/62 07/28/22 07:00 37.9 C H 119 H 28 H 97 07/28/22 06:45 37.8 C H 118 H 28 H 99 07/28/22 06:45 124/91 07/28/22 06:30 37.9 C H 114 H 26 H 98 07/28/22 06:30 108/80 07/28/22 06:17 37.9 C H 116 H 26 H 96 07/28/22 06:17 93/64 L 07/28/22 06:15 37.9 C H 124 H 26 H 97 07/28/22 08:00 Nasal Cannula 07/28/22 08:00 Nasal Cannula 4 07/28/22 08:00 37.9 C H 07/28/22 08:00 114 H 07/28/22 06:00 37.9 C H 114 H 34 H 97 07/28/22 05:31 38.0 C H 120 H 38 H 94 07/28/22 05:31 94/68 L 07/28/22 05:30 38.0 C H 131 H 38 H 96 07/28/22 05:00 38.0 C H 117 H 41 H 97 07/28/22 04:30 38.1 C H 127 H 41 H 96 07/28/22 04:30 121/53 L 07/28/22 04:15 38.1 C H 120 H 36 H 97 07/28/22 04:15 106/68 07/28/22 04:07 38.1 C H 128 H 34 H 97 07/28/22 04:07 84/48 L 07/28/22 04:02 38.0 C H 124 H 43 H 97 07/28/22 04:02 66/42 L 07/28/22 04:00 38.0 C H 128 H 38 H 96 07/28/22 03:46 37.9 C H 130 H 43 H 98 07/28/22 03:45 37.9 C H 133 H 42 H 98 07/28/22 03:15 38.3 C H 124 H 30 H 111/73 97 07/28/22 03:30 36.4 C L 120 H 40 H 97 07/28/22 03:30 82/62 L 07/28/22 03:00 38.3 C H 134 H 44 H 98 07/28/22 03:00 106/72 07/28/22 02:45 38.4 C H 147 H 40 H 97 07/28/22 02:45 97/70 L 07/28/22 02:31 38.4 C H 141 H 46 H 96 07/28/22 02:31 80/56 L 07/28/22 02:30 38.4 C H 143 H 43 H 97 07/28/22 02:15 38.3 C H 163 H 45 H 96 07/28/22 02:15 127/83 07/28/22 02:00 38.3 C H 167 H 44 H 98 07/28/22 02:00 106/82 Lab & Micro Results (Past 24 Hours) RBC 3.93 M/uL (3.93-5.22) 07/28/22 WBC 15.53 K/ul (4.8-10.8) H 07/28/22 Hgb 10.9 g/dl (12.0-16.0) L 07/28/22 Hct 31.8 % (34.1-44.9) L 07/28/22 MCV 80.9 fL (80.0-100.0) 07/28/22 MCH 27.7 pg (25.0-34.0) 07/28/22 MCHC 34.3 g/dL (32.0-36.0) 07/28/22 RDW Standard Deviation 41.4 fL (36.4-46.3) 07/28/22 RDW Coefficient of Variation 13.9 % (11.5-14.5) 07/28/22 Plt Count 53 K/uL (130-400) L 07/28/22 MPV 12.5 fL (9.4-12.3) H 07/28/22 Nucleated Red Blood Cells % (auto) 0.2 % 07/28 Nucleated RBC Absolute Count (auto) 0.03 K/uL (0-0) H 07/02 03/22 Neutrophils (%) (Auto) 77.2 % 07/28/22 Lymphocytes (%) (Auto) 7.8 % 07/28/22 Monocytes # (Auto) 1.58 K/uL (0.24-0.82) H 07/28/22 Eosinophils # (Auto) 0.02 K/uL (0-0.50) 07/28/22 Immature Granulocyte % (Auto) 4.1 % 07/28/22 Neutrophils # (Auto) 11.98 K/uL (1.4-6.5) H 07/28/22 Lymphocytes # (Auto) 1.21 K/uL (1.2-3.4) 07/28/22 Monocytes # (Auto) 1.58 K/uL (0.24-0.82) H 07/28/22 Eosinophils # (Auto) 0.02 K/uL (0-0.50) 07/28/22 Basophils # (Auto) 0.10 K/uL (0-0.2) 07/28/22 Immature Granulocyte # (Auto) 0.64 K/uL (0.00-0.02) H 07/28 Echinocytes 1+ 07/28/22 Dohle Bodies 2+ 07/28/22 Na 136 mmol/L (136-145) 07/28/22 K 4.3 mmol/L (3.5-5.1) 07/28/22 Cl 108 mmol/L (98-107) H 07/28/22 CO2 16 mmol/L (21-32) L 07/28/22 Anion Gap 12 (3-11) H 07/28/22 BUN 62 mg/dl (6-23) H 07/28/22 Creatinine 1.54 mg/dl (0.6-1.2) H 07/28/22 Estimated GFR ( Amer) 35.5 ml/min 07/28/22 Estimated GFR (Non-Af Amer) 30.7 ml/min 07/28/22 BUN/Creatinine Ratio 40.3 (10-20) H 07/28/22 Glu 169 mg/dl (70-99(Fasting)) H 07/28/22 Ca 7.4 mg/dl (8.5-10.1) L 07/28/22 Phosphorus Level 2.0 mg/dl (2.5-4.9) L 07/28/22 Mg 2.2 mg/dl (1.7-2.4) 07/28/22 11:19 Calcium Level 7.4 mg/dl (8.5-10.1) L 07/28/22 11:19 Venous Blood pH 7.40 (7.36-7.41) 07/28/22 11:19 Venous Blood Partial Pressure CO2 30 mmHg (38-50) L 07/27/22 15 :58 Venous Blood Partial Pressure O2 50 mmHg 07/27/22 15:58 Venous Blood HCO3 9 mmol/L 07/27/22 15:58 Venous Blood Base Excess -19.5 mEq/L 07/27/22 15:58 Venous Blood Oxygen Saturation 70.8 % 07/27/22 15:58 Luis E Test NA 07/27/22 23:03 Microbiology 07/27/22 13:28 Urine Culture - Preliminary Urine,Straight Cath Gram negative bacilli 07/27/22 14:13 Aerobic Blood Culture - Preliminary Blood Gram negative bacilli 07/27/22 13:29 Aerobic Blood Culture - Preliminary Blood Gram negative bacilli Diagnostic Findings (Past 24 Hours) Abdomen/Pelvis CT 07/27/22 12:58 CT SCAN OF THE ABDOMEN AND PELVIS WITHOUT IV CONTRAST CLINICAL HISTORY: Found down. COMPARISON STUDY: Abdominal CT dated 01/01/2012. TECHNIQUE: CT scan of the abdomen and pelvis is performed from the lung bases to the proximal femora. Images are reviewed in the axial, sagittal, and coronal planes. IV contrast was not administered for this examination. Note that the examination is significantly suboptimal without oral and IV contrast. There is motion artifact, as well as streak artifact from the arms which could not be elevated above the abdomen. A dose lowering technique was utilized adhering to the principles of ALARA. FINDINGS: Lung bases: The heart is enlarged and without pericardial effusion. The lung bases are clear noting bibasilar scarring/atelectasis. A small hiatal hernia is noted. Liver: The unenhanced liver is cirrhotic in morphology and heterogeneous in attenuation. There is nodularity of the hepatic surface contour. There is no intrahepatic biliary ductal dilatation. Gallbladder: Surgically absent. Spleen: Normal in size and attenuation. Pancreas: The unenhanced pancreas is atrophic and grossly unremarkable. Adrenal glands: Unremarkable. Kidneys: The unenhanced kidneys demonstrate mild cortical atrophy and are without hydronephrosis. There are tiny foci of gas within the right renal collecting system. Asymmetric Extraneous on the right. There are no renal calculi identified. There is no evidence of contour deforming renal mass lesion. Abdominal vasculature: The abdominal aorta is normal in course and caliber noting mild atherosclerotic calcification. Bowel: There are scattered colonic diverticula without CT evidence of acute diverticulitis. No bowel obstruction is seen. The appendix is well-visualized and normal. Peritoneum: There is no intraperitoneal free air or abdominal ascites. Lymphadenopathy: None. Pelvic viscera: The bladder is decompressed around a Cai catheter and could not be assessed. Gas within the bladder lumen is likely related to instrumentation. The uterus is surgically absent. No adnexal lesion is seen. Skeletal structures: The skeletal structures are osteopenic. There are chronic appearing compression deformities of T11, T12, L1, L2, and L3. Several views are new from 2012. Lumbosacral spondylosis is observed. No lytic or blastic lesions are seen. IMPRESSION: 1. There is asymmetric right-sided perinephric stranding/inflammation with tiny foci of nonspecific gas within the right renal pelvis. Correlate clinically and with urinalysis for evidence of right-sided pyelonephritis. Emphysematous infection is not excluded. 2. Cirrhotic liver morphology. 3. Cardiomegaly. 4. Additional findings as above. ACT 112: Negative or not required by law. Electronically signed by: Jeronimo Orosco M.D. 07/27/2022 2:[address] 07/27/22 12:58 CT cervical spine wo con CLINICAL HISTORY: found down TECHNIQUE: Multidetector row helical CT of the cervical spine was performed without administration of intravenous contrast. Coronal and sagittal reformations were obtained. Automated dose lowering techniques and/or adjustment according to patient size were utilized for this exam. Comparison: None available at the time of this dictation. FINDINGS: No acute fractures or subluxations are identified. Degenerative changes are seen in the visualized spine. Transverse ligament calcification is noted. The alignment is normal. Soft tissues are unremarkable. IMPRESSION: Degenerative changes without evidence of acute bony injury. ACT 112: Negative or not required by law. Electronically signed by: Perston Carrasquillo M.D. 07/27/2022 2:[address] 07/27/22 12:58 CT head/brain wo con CLINICAL HISTORY: 82 years-old Female with found down. Acute head trauma TECHNIQUE: Multiple axial CT images of the head were obtained without contrast. A dose lowering technique was utilized adhering to the principles of ALARA. CT DOSE: 1516.11 mGy.cm COMPARISON: 09/09/2020 FINDINGS: No acute intracranial hemorrhage, midline shift, intracranial mass, hydrocephalus, territorial ischemia or abnormal extra-axial collection. Involu tional changes with ventriculomegaly redemonstrated, likely on an ex vacuo basis. The calvarium is intact. Partially imaged nasal bone fractures are favored to be chronic. Prior bilateral lens repair. The paranasal sinuses, mastoid air cells, and middle ear cavities are clear. IMPRESSION: No acute intracranial abnormality or calvarial fracture. ACT 112: Negative or not required by law. The above report was generated using voice recognition software. It may contain grammatical, syntax or spelling errors. Electronically signed by: Alex Herrera M.D. 07/27/2022 2:01 PM Chest X-Ray 07/28/22 04:00 XR chest 1V portable CLINICAL HISTORY: evaluate pulmonary metcalf TECHNIQUE: Single frontal radiograph of the chest was obtained. Comparison: Comparison is made to chest radiograph 07/27/2022 FINDINGS: No lines and tubes are seen. Calcified aortic knob is seen. The lungs are clear. No evidence of pleural effusion or pneumothorax. IMPRESSION: No acute abnormalities and in particular no evidence of pneumonia. ACT 112: Negative or not required by law. Electronically signed by: Preston Carrasquillo M.D. 07/28/2022 8:43 AM I & O Totals 24 Hours 07/27/22 07/28/22 07/29/22 06:59 06:59 06:59 Intake Total 6952.666 / 6952.666 2512.485 / 2512.485 Output Total 550 / 550 180 / 180 Balance 6402.666 / 6402.666 2332.485 / 2332.485 Cumulative 07/27/22 12:45 thru 07/28/22 12:35 Intake Total 9465.151 Output Total 730 Balance 8735.151 RT Ventilator Mngmt (Last Documented) Ventilator Ordered Settings Respiratory Rate 32 07/28/22 12:00 Fraction of Inspired Oxygen 45 07/27/22 13:19 Ventilator - PT Measurements Respiratory Rate 32 Coding Level of Care Code Critical Care 1st 30-74 mins Diagnoses DKA (diabetic ketoacidosis) E13.11 Diabetes mellitus complication detail: with coma Diabetes mellitus type: other specified (including ROSIO) Sepsis A41.9; R65.20; N17.9 Acute renal failure type: unspecified Sepsis acute organ dysfunction status: with acute organ dysfunction Sepsis type: sepsis due to unspecified organism Severe sepsis acute organ dysfunction type: acute renal failure Severe sepsis shock status: unspecified WEST (acute kidney injury) N17.9 Acute metabolic encephalopathy G93.41 Elevated troponin R77.8 Paroxysmal atrial fibrillation I48.0 Pyelonephritis N12 (1) DKA (diabetic ketoacidosis) Diabetes mellitus complication detail: with coma Diabetes mellitus type: other specified (including ROSIO) Qualified Code(s): E13.11 - Other specified diabetes mellitus with ketoacidosis with coma (2) Sepsis Acute renal failure type: unspecified Sepsis acute organ dysfunction status: with acute organ dysfunction Sepsis type: sepsis due to unspecified organism Severe sepsis acute organ dysfunction type: acute renal failure Severe sepsis shock status: unspecified Qualified Code(s): A41.9 - Sepsis, unspecified organism; R65.20 - Severe sepsis without septic shock; N17.9 - Acute kidney failure, unspecified
[2022-07-28] MEDS ORDERED: PIPERACILLIN/TAZOBACTAM 3.375 GM in DEXTROSE 5% 100 ML IV SCH (10:00)
[2022-07-28] MEDS ORDERED: DIGOXIN 250 MCG in SYRINGE 9 ML IV STA (10:12)
[2022-07-28] MEDS ORDERED: ENOXAPARIN 80 MG/0.8 ML SYR SQ SCH (10:30)
[2022-07-28] MEDS ORDERED: cefTRIAXone SODIUM 2,000 MG in DEXTROSE 5% 50 ML IV SCH (10:30)
[2022-07-28 12:06] LABS: BUN Creatinine Ratio 40.3 (10-20); Calcium 7.4 mg/dl (8.5-10.1); Creatinine Clr Calc Pharmacy 25.9 ml/min; Est GFR (African American) 35.5 ml/min; Est GFR (Non-African American) 30.7 ml/min; Magnesium 2.2 mg/dl (1.7-2.4); Potassium 4.3 mmol/L (3.5-5.1)
--- NOTE | 2022-07-28 13:41 | Pharmacy Report ---
Pharmacy Glycemic Short Note 2 - Date of Service July 28, 2022 - Glycemic Short BSG Results (Last 24 hours): 07/27/22 07/27/22 07/27/22 13:10 13:21 13:29 Glucose 810 H* POC Glucose > 600 H* POC Glucose (other) > 700 H* 07/27/22 07/27/22 07/27/22 14:50 15:58 16:44 Glucose 699 H* POC Glucose > 600 H* > 600 H* POC Glucose (other) 07/27/22 07/27/22 07/27/22 18:26 19:12 19:26 Glucose 583 H* POC Glucose 531 H* 474 H* POC Glucose (other) 07/27/22 07/27/22 07/27/22 20:27 20:29 21:28 Glucose POC Glucose 473 H* 450 H* 352 H* POC Glucose (other) 07/27/22 07/27/22 07/27/22 22:35 23:09 23:34 Glucose 271 H POC Glucose 324 H* 246 H POC Glucose (other) 07/28/22 07/28/22 07/28/22 00:27 01:26 02:26 Glucose POC Glucose 198 H 204 H 190 H POC Glucose (other) 07/28/22 07/28/22 07/28/22 03:27 03:34 04:40 Glucose 216 H POC Glucose 203 H 212 H POC Glucose (other) 07/28/22 07/28/22 07/28/22 05:36 06:31 07:05 Glucose 200 H POC Glucose 177 H 187 H POC Glucose (other) 07/28/22 07/28/22 07/28/22 07:29 08:42 10:32 Glucose POC Glucose 199 H POC Glucose (other) 180 H 167 H 07/28/22 07/28/22 11:19 12:30 Glucose 169 H POC Glucose POC Glucose (other) 151 H OUTPATIENT ANTIDIABETIC REGIMEN: * Tresiba 160 units SC daily * Novolog 25 units SC AC * Metformin XR 500 mg PO daily * HbA1c: 14.8% (07/27/22) ASSESSMENT: * 82 yo F admitted secondary to DKA. Pharmacy was consulted yesterday to assist with inpatient glycemic management. Patient is known to our service. She is obtunded and hypotensive requiring pressors. Amiodarone infusion is running for afib. Abx for pyelonephritis. * Initial labs: Serum BSG 810 mg/dL, Anion Gap 27, CO2 10 mmol/L, VBG pH 7.09, 1+ ketonuria. * Started on an insulin drip at 6.8 units/hr, no bolus. * Received 3 L of NSS in ED. Started on Normosol-R at 150 mL/hr until BSG was less than 250 mg/dL. * Now running D5 1/2 NS + 20 KCl at 115 mL/hr. * Most recent labs: Serum BSG 169 mg/dL, Anion Gap 12, CO2 16 mmol/L, VBG pH 7 .40. * Insulin drip currently running at 5.8 units/hr. Remains on D5 1/2 NS + 20 KCl fluids. * Given severity of illness, unlikely to discontinue insulin drip today despite patient no longer being in DKA. * Did give 40 units of Lantus to help with transition when that time comes. PLAN FOR INPATIENT GLYCEMIC CONTROL: * Hold outpatient oral diabetes medications * Continue Insulin drip for now * Basal insulin * Lantus 40 units SC AM * Bolus insulin - per calculator until drip is discontinued * NovoLog per scale ACHS or Q6hrs while NPO * Goal Range: Low 110 mg/dL - High 140 mg/dL * Correction Factor: 10 mg/dL/unit * Nutritional / Prandial insulin per carb ratio of 1 unit per 3 grams CHO consumed
--- NOTE | 2022-07-28 13:47 | Hospitalist Progress Note ---
Date of Service July 28, 2022 Assessment & Plan (1) Septic shock: Plan: Lactate improved with IVF support and still requiring pressor support with levophed and vasopressin this afternoon. (2) Acute metabolic encephalopathy: Plan: This is an 82-year-old female with PMH DM II, paroxysmal atrial fibrillation on Eliquis, HLD, depression and other medical problems listed below who presents to the ER after being found unresponsive at home and was found to have acute metabolic encephalopathy in setting of septic shock and metabolic acidosis 2/2 DKA. Multifactorial given septic shock 2/2 pyelo with gram negative bacteremia and DKA Continue IV fluid resuscitation, antibiotics, rewarming CT head without acute intracranial abnormalities continues on pressors this afternoon (3) DKA (diabetic ketoacidosis): Plan: HAGMA 2/2 DKA in setting of elevated lactate from sepsis. Improved with current treatment (4) Complicated UTI (urinary tract infection): Plan: Hypotensive, hypothermic. septic shock CT abd/pelvis with asymmetric right-sided perinephric stranding/inflammation with tiny foci of nonspecific gas within the right renal pelvis. Correlate clinically and with urinalysis for evidence of right-sided pyelonephritis Continue empiric cefepime, fluids, follow cultures Kraus in place (5) Gram-negative bacteremia: (6) Hypothermia: Plan: Initial temp 30.3 C, chino hugger in place, currently normothermic. (7) Elevated creatine kinase level: Plan: 2/2 sepsis and critical illness, cont current management. (8) Elevated troponin: Plan: Likely 2/2 demand ischemia in sepsis. No evidence of ACS or acute ischemia on EKG and echo with no acute wall motion abnormalities. severe calcification is present at the aortic valve. Also, troponin peaked and is trending down. (9) WEST (acute kidney injury): Plan: Cr 2.46 (baseline ~ 0.7) in setting of severe dehydration, infection, DKA. Continue IV fluid resuscitation, monitor closely. High risk for ATN wtih shock present. She is making urine --around 200 -400cc per day (10) Diabetes mellitus, type 2: Plan: Being managed for DKA as above. A1c reflects poor control. 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 She is on insulin and metformin at home. Cont insulin drip here per plan above. (11) Paroxysmal atrial fibrillation: Plan: Home regimen includes amiodarone, Lopressor and Eliquis for anticoagulation DVT Ppx: SCDs, on Eliquis normally for stroke ppx given A fib. Started on full dose Lovenox by ICU. Code status: DNR/DNI PCP: Genna Benites Dispo: Admitted to ICU DO Macho Siddiqui Hospitalist Admission and Anticipated Discharge Date Admission Date: July 27, 2022 Subjective 82-year-old critically ill female presenting with sepsis and DKA secondary to pyelonephritis. She is still requiring vasopressor therapy and is extremely tachycardic with heart rates into the 160s. She has been given boluses of intra venous digoxin on top of home amiodarone. She continues on dextrose and insulin with glucose improved but she is unable to take p.o. as she is still very confused and tachypneic. Review of systems unable to be obtained secondary to confusion. Review of Systems Review of Systems: Unable to obtain secondary to confusion Physical Exam Physical Exam: CONSTITUTIONAL: WNWD, vitals as above, ill appearing, elderly, tachypneic, doesn't appear comfortable. EYES: normal conjunctivae, no scleral icterus ENT: external ear and nose normal, MMM NECK: trachea midline RESPIRATORY: clear to auscultation bilaterally, no crackles, rales or wheezes, increased respiratory effort. CARDIOVASCULAR: tachy rate and regular rhythm, S1 and 2 heard without murmurs, gallops or rubs, no peripheral edema CHEST: inspection of chest was normal GASTROINTESTINAL: soft, nondistended, no guarding. MUSCULOSKELETAL: cannot assess 2/2 confusion. SKIN: warm and dry NEUROLOGIC: cannot assess 2/2 confusion but appears generally nonfocal. PSYCHIATRIC: alert cooperative and oriented to person, place and time. Results & Data Results & Data ([facility]) Vital Signs (Past 12 Hours) Vital Signs Temp Pulse Resp BP Pulse Ox O2 Del Method O2 Flow Rate 07/28/22 12:00 37.6 C H 112 H 32 H 98 07/28/22 11:45 37.6 C H 115 H 32 H 99 07/28/22 11:45 123/82 07/28/22 11:32 37.7 C H 126 H 34 H 99 07/28/22 11:32 89/66 L 07/28/22 11:30 37.7 C H 117 H 34 H 99 07/28/22 11:00 37.8 C H 113 H 32 H 100 07/28/22 10:46 37.8 C H 115 H 32 H 98 07/28/22 10:46 115/65 07/28/22 10:54 113 H 07/28/22 10:31 37.8 C H 120 H 47 H 97 07/28/22 10:31 121/70 07/28/22 10:30 37.8 C H 122 H 45 H 99 07/28/22 10:15 37.8 C H 120 H 39 H 99 07/28/22 10:15 141/77 H 07/28/22 10:00 37.8 C H 116 H 41 H 99 07/28/22 10:00 117/95 07/28/22 09:46 115/85 07/28/22 09:46 37.8 C H 119 H 40 H 99 07/28/22 09:45 37.8 C H 116 H 37 H 97 07/28/22 09:30 37.9 C H 114 H 36 H 97 07/28/22 09:30 123/81 07/28/22 09:16 37.9 C H 117 H 35 H 98 07/28/22 09:16 103/77 07/28/22 09:15 37.9 C H 126 H 36 H 99 07/28/22 09:04 134/85 07/28/22 09:04 37.9 C H 123 H 41 H 100 07/28/22 09:00 37.9 C H 106 H 39 H 99 07/28/22 08:46 37.9 C H 120 H 40 H 98 07/28/22 08:45 37.9 C H 117 H 43 H 97 07/28/22 08:31 37.9 C H 118 H 39 H 98 07/28/22 08:31 90/67 L 07/28/22 08:30 37.9 C H 118 H 39 H 98 07/28/22 08:15 37.8 C H 117 H 42 H 98 07/28/22 08:15 141/89 H 07/28/22 08:02 37.8 C H 115 H 32 H 98 07/28/22 08:02 107/87 07/28/22 08:00 37.9 C H 122 H 40 H 99 07/28/22 08:00 128/75 07/28/22 07:57 123/78 07/28/22 07:57 37.8 C H 111 H 38 H 98 07/28/22 07:46 37.9 C H 126 H 32 H 98 07/28/22 07:46 115/65 07/28/22 07:45 37.9 C H 120 H 33 H 98 07/28/22 07:30 37.9 C H 117 H 26 H 99 07/28/22 07:30 107/75 07/28/22 07:15 37.9 C H 119 H 26 H 99 07/28/22 07:15 117/98 07/28/22 07:01 37.9 C H 120 H 26 H 96 07/28/22 07:01 109/62 07/28/22 07:00 37.9 C H 119 H 28 H 97 07/28/22 06:45 37.8 C H 118 H 28 H 99 07/28/22 06:45 124/91 07/28/22 06:30 37.9 C H 114 H 26 H 98 07/28/22 06:30 108/80 07/28/22 06:17 37.9 C H 116 H 26 H 96 07/28/22 06:17 93/64 L 07/28/22 06:15 37.9 C H 124 H 26 H 97 07/28/22 08:00 Nasal Cannula 07/28/22 08:00 Nasal Cannula 4 07/28/22 08:00 37.9 C H 07/28/22 08:00 114 H 07/28/22 06:00 37.9 C H 114 H 34 H 97 07/28/22 05:31 38.0 C H 120 H 38 H 94 07/28/22 05:31 94/68 L 07/28/22 05:30 38.0 C H 131 H 38 H 96 07/28/22 05:00 38.0 C H 117 H 41 H 97 07/28/22 04:30 38.1 C H 127 H 41 H 96 07/28/22 04:30 121/53 L 07/28/22 04:15 38.1 C H 120 H 36 H 97 07/28/22 04:15 106/68 07/28/22 04:07 38.1 C H 128 H 34 H 97 07/28/22 04:07 84/48 L 07/28/22 04:02 38.0 C H 124 H 43 H 97 07/28/22 04:02 66/42 L 07/28/22 04:00 38.0 C H 128 H 38 H 96 07/28/22 03:46 37.9 C H 130 H 43 H 98 07/28/22 03:45 37.9 C H 133 H 42 H 98 07/28/22 03:15 38.3 C H 124 H 30 H 111/73 97 07/28/22 03:30 36.4 C L 120 H 40 H 97 07/28/22 03:30 82/62 L 07/28/22 03:00 38.3 C H 134 H 44 H 98 07/28/22 03:00 106/72 07/28/22 02:45 38.4 C H 147 H 40 H 97 07/28/22 02:45 97/70 L 07/28/22 02:31 38.4 C H 141 H 46 H 96 07/28/22 02:31 80/56 L 07/28/22 02:30 38.4 C H 143 H 43 H 97 07/28/22 02:15 38.3 C H 163 H 45 H 96 07/28/22 02:15 127/83 07/28/22 02:00 38.3 C H 167 H 44 H 98 07/28/22 02:00 106/82 Laboratory Results Short CBC 07/27/22 07/28/22 Range/Units 13:29 07:05 WBC 12.36 H 15.53 H (4.8-10.8) K/ul Hgb 12.0 10.9 L (12.0-16.0) g/dl Hct 38.7 31.8 L (34.1-44.9) % Plt Count 55 L 53 L (130-400) K/uL BMP 07/27/22 07/27/22 07/27/22 13:29 15:58 19:12 Sodium 134 L 137 138 Potassium 4.7 4.1 3.5 Chloride 97 L 105 107 Carbon Dioxide 10 L 10 L 10 L BUN 73 H 69 H 69 H Creatinine 2.46 H 2.04 H D 2.10 H Glucose 810 H* 699 H* 583 H* Calcium 8.2 L 7.5 L 7.2 L 07/27/22 07/28/22 07/28/22 23:09 03:34 07:05 Sodium 141 137 136 Potassium 3.6 4.5 D 4.6 Chloride 110 H 108 H 108 H Carbon Dioxide 14 L 15 L 17 L BUN 67 H 66 H 64 H Creatinine 1.88 H 1.73 H 1.71 H Glucose 271 H 216 H 200 H Calcium 7.8 L 7.6 L 7.3 L 07/28/22 11:19 Sodium 136 Potassium 4.3 Chloride 108 H Carbon Dioxide 16 L BUN 62 H Creatinine 1.54 H Glucose 169 H Calcium 7.4 L Cardiac Enzymes 07/27/22 07/27/22 Range/Units 13:29 19:12 Total Creatine Kinase 732 H 478 H (26-192) U/L Liver Function 07/27/22 Range/Units 13:29 Total Bilirubin 0.8 (0.2-1.0) mg/dl Direct Bilirubin 0.4 H (0-0.2) mg/dl AST 42 H (13-39) U/L ALT 25 (7-52) U/L Alkaline Phosphatase 137 H (34-104) U/L Albumin 2.8 L (3.4-5.0) gm/dl Urine 07/27/22 Range/Units 13:28 Urine Color Yellow Urine Appearance Turbid A (Clear) Urine pH 7.0 (4.5-7.5) Ur Specific [place] 1.018 (1.000-1.030) Urine Protein 2+ H (Negative) Urine Glucose (UA) 2+ H (Negative) Diagnostic Findings Chest X-Ray 07/28/22 04:00 XR chest 1V portable CLINICAL HISTORY: evaluate pulmonary metcalf TECHNIQUE: Single frontal radiograph of the chest was obtained. Comparison: Comparison is made to chest radiograph 07/27/2022 FINDINGS: No lines and tubes are seen. Calcified aortic knob is seen. The lungs are clear. No evidence of pleural effusion or pneumothorax. IMPRESSION: No acute abnormalities and in particular no evidence of pneumonia. ACT 112: Negative or not required by law. Electronically signed by: Preston Carrasquillo M.D. 07/28/2022 8:43 AM Medications Administered Current Inpatient Medications Acetaminophen (Acetaminophen 325 Mg Tab) 650 mg PO Q4H PRN PRN Reason: fever or pain Stop: 08/26/22 19:43 Amiodarone HCl (Amiodarone 200 Mg Tab) 100 mg PO DAILY TITI Stop: 08/27/22 08:59 Apixaban (Apixaban 5 Mg Tablet) 5 mg PO BID TITI Stop: 08/26/22 20:59 Last Admin: 07/28/22 07:59 Dose: Not Given Atorvastatin Calcium (Atorvastatin 10 Mg Tab) 10 mg PO DAILY TITI Stop: 08/27/22 08:59 Last Admin: 07/28/22 07:59 Dose: Not Given Dextrose (Dextrose 50% 50 Ml Syringe) 25 - 50 ml IV UD PRN; Protocol PRN Reason: Hypoglycemia Protocol Stop: 08/26/22 14:47 Diclofenac Sodium (Diclofenac Sod 1% Gel 100 Gm Tube) 1 gm EXT BID PRN; Protocol PRN Reason: Pain Stop: 08/26/22 19:43 Docusate Sodium (Docusate Sodium 100 Mg Cap) 100 mg PO BID PRN PRN Reason: Constipation Stop: 08/26/22 19:43 Enoxaparin Sodium (Enoxaparin 80 Mg/0.8 Ml Syr) 80 mg SQ Q24H TITI; Protocol Stop: 08/27/22 10:29 Last Admin: 07/28/22 10:54 Dose: 80 mg Glucagon (Glucagon For Inj 1 Mg Vial) 1 mg SQ UD PRN; Protocol PRN Reason: Hypoglycemia Protocol Stop: 08/26/22 14:47 Glucose (Glucose 40% Gel 15 Gm Tube) 15 - 30 gm PO UD PRN; Protocol PRN Reason: Hypoglycemia Protocol Stop: 08/26/22 14:47 Glucose (Glucose 10 Tab/Tube) 4 - 8 tab PO UD PRN; Protocol PRN Reason: Hypoglycemia Treatment Stop: 08/26/22 14:47 Insulin Human Regular 250 (units/ Sodium Chloride) 250 mls @ 5.8 mls/hr IV .Q24H TITI; Protocol Stop: 08/26/22 14:59 Last Titration: 07/28/22 12:35 Dose: 5.8 units/hr, 5.8 mls/hr Norepinephrine Bitartrate (Levophed/D5w) 4 mg in 250 mls @ 79.875 mls/hr IV .Q3H8M TITI; Protocol Stop: 08/26/22 19:44 Last Admin: 07/28/22 12:35 Dose: 0.15 mcg/kg/min, 39.9 mls/hr Vasopressin 20 units/ Sodium (Chloride) 101 mls @ 12.12 mls/hr IV .Q8H20M TITI Stop: 08/26/22 22:44 Last Infusion: 07/28/22 07:12 Dose: 0.04 unit/min, 12.1 mls/hr Amiodarone HCl/Dextrose (Nexterone / D5w) 360 mg in 200 mls @ 16.667 mls/hr IV .Q12H [facility] Stop: 08/27/22 05:14 Last Infusion: 07/28/22 07:12 Dose: 0.5 mg/min, 16.7 mls/hr Potassium Chloride/Dextrose/Sod Cl (D5w And 1/2nss + 20meq Kcl) 20 meq in 1,000 mls @ 115 mls/hr IV .Q8H42M [facility] Stop: 08/27/22 00:44 Last Admin: 07/28/22 10:07 Dose: 115 mls/hr Piperacillin Sod/Tazobactam (Sod 3.375 gm/ Dextrose) 115 mls @ 28.75 mls/hr IV Q8H [facility]; Protocol Stop: 07/28/22 14:00 Last Admin: 07/28/22 10:10 Dose: 28.8 mls/hr Digoxin 125 mcg/ Syringe 10 mls @ 2 mls/min IV ONE ONE Stop: 07/28/22 17:04 Digoxin 125 mcg/ Syringe 10 mls @ 2 mls/min IV DAILY [facility] Stop: 08/28/22 08:59 Ceftriaxone Sodium 2,000 mg/ (Dextrose) 70 mls @ 140 mls/hr IV Q24H [facility] Stop: 08/11/22 17:59 Insulin Aspart (Insulin Aspart Per Unit) 0 units SC ACHS [facility] Stop: 08/26/22 16:29 Last Admin: 07/28/22 10:54 Dose: Not Given Insulin Glargine (Lantus Per Unit Charge) 40 units SQ DAILY [facility]; Protocol Stop: 08/27/22 08:59 Last Admin: 07/28/22 08:51 Dose: 40 units Lactobacillus Acidophilus (Advanced Probiotic 1250 Mg Capsule) 2 cap PO DAILY [facility] Stop: 08/27/22 08:59 Magnesium Oxide (Magnesium Oxide 400 Mg Tab) 400 mg PO QAM [facility] Stop: 08/27/22 08:59 Metoprolol Tartrate (Metoprolol Tartrate 25 Mg Tab) 25 mg PO BID [facility] Stop: 08/26/22 20:59 Last Admin: 07/27/22 19:53 Dose: Not Given Miscellaneous (Carbohydrates For Hypoglycemia ) 15 - 30 gm PO UD PRN PRN Reason: Hypoglycemia Protocol Stop: 08/26/22 14:47 Miscellaneous (Icu Electrolyte Replacement Protocol) 1 each N/A BID@06,18 [facility]; Protocol Stop: 08/04/22 05:59 Last Admin: 07/28/22 08:08 Dose: 1 each Miscellaneous Information (Pharmacy Glycemic Mgmt Consult) 1 each N/A UD PRN PRN Reason: Consult Stop: 08/26/22 14:51 Polyethylene Glycol (Polyethylene (Miralax) 17 Gm Pack) 17 gm PO DAILY PRN PRN Reason: Constipation Stop: 08/26/22 19:43 Potassium Chloride (Potassium Chloride Crtab 20 Meq Tabcr) 20 meq PO DAILY TITI Stop: 08/27/22 08:59 Last Admin: 07/28/22 08:00 Dose: Not Given Vitamin D (Cholecalciferol 1,000 Units 25 Mcg Tab) 2,000 units PO DAILY [facility] Stop: 08/27/22 08:59
[2022-07-28] MEDS ORDERED: CEFEPIME 1,000 MG in SYRINGE 0 ML IV SCH (14:00)
[2022-07-28] MEDS ORDERED: ACETAMINOPHEN 1,000 MG/100 ML VIAL IV PRN (16:52)
[2022-07-28] MEDS ORDERED: DIGOXIN 125 MCG in SYRINGE 9.5 ML IV ONE (17:00)
[2022-07-28] MEDS: cefTRIAXone SODIUM 2,000 MG in DEXTROSE 5% 50 ML IV SCH (17:07)
[2022-07-28] MEDS: INSULIN REGULAR 250 UNITS in SODIUM CHLORIDE 0.9% 247.5 ML IV SCH (18:00)
[2022-07-28] MEDS ORDERED: SODIUM PHOSPHATE 12 MMOL in SODIUM CHLORIDE 0.9% 250 ML IV ONE (21:00)
[2022-07-29] MEDS: D5W AND 1/2NSS + 20MEQ KCL 20 MEQ/1,000 ML BAG IV SCH (03:03)
[2022-07-29] MEDS: AMIODARONE / D5W 360 MG/200 ML BAG IV SCH (03:04)
[2022-07-29 06:26] LABS: INR 1.4 (0.9-1.1); Prothrombin Time 14.7 Seconds (9.0-12.0)
[2022-07-29 06:36] LABS: Acanthocytes 1+; Basophils # (auto) 0.02 K/uL (0-0.2); Basophils % (auto) 0.2 %; Echinocytes 1+; Eosinophils # (auto) 0.03 K/uL (0-0.50); Eosinophils % (auto) 0.3 %; Hemoglobin 9.3 g/dl (12.0-16.0); Immature Granulocytes # (auto) 0.11 K/uL (0.00-0.02); Lymphocytes % (auto) 8.5 %; Mean Corpuscular Hemoglobin 27.1 pg (25.0-34.0); Mean Corpuscular Hgb Conc 34.4 g/dL (32.0-36.0); Mean Corpuscular Volume 78.7 fL (80.0-100.0); Monocytes # (auto) 0.68 K/uL (0.24-0.82); Monocytes % (auto) 6.4 %; Neutrophils # (auto) 8.89 K/uL (1.4-6.5); Neutrophils % (auto) 83.6 %; Platelet Count 27 K/uL (130-400); RDW Coefficient of Variation 14.4 % (11.5-14.5); RDW Standard Deviation 40.9 fL (36.4-46.3); Red Blood Count 3.43 M/uL (3.93-5.22); White Blood Count 10.63 K/ul (4.8-10.8)
[2022-07-29] MEDS: NOREPINEPHRINE/D5W 4 MG/250 ML PLCT IV SCH (06:53)
[2022-07-29] MEDS: POTASSIUM CHLORIDE CRTAB 20 MEQ TABCR PO SCH (07:37)
[2022-07-29] MEDS: ATORVASTATIN 10 MG TAB PO SCH (07:37)
[2022-07-29] MEDS: LANTUS PER UNIT CHARGE SQ SCH (07:42)
[2022-07-29] MEDS: INSULIN ASPART PER UNIT SC SCH ×4 (07:42→19:55)
[2022-07-29] MEDS: VASOPRESSIN 20 UNITS in 0.9 % SODIUM CHLORIDE 100 ML IV SCH ×2 (07:42→16:08)
[2022-07-29] MEDS: DIGOXIN 125 MCG in SYRINGE 9.5 ML IV SCH (07:43)
[2022-07-29 07:48] LABS: Calcium 6.8 mg/dl (8.5-10.1); Creatinine Clr Calc Pharmacy 35.9 ml/min; Est GFR (African American) 51.7 ml/min; Est GFR (Non-African American) 44.6 ml/min; Potassium 3.8 mmol/L (3.5-5.1)
--- NOTE | 2022-07-29 08:13 | XRay Report ---
XR chest 1V portable HISTORY: Shortness of breath. COMPARISON: Chest 07/28/2022. FINDINGS: There are low lung volumes. Questionable focal right apical density is not appreciated on t he recent cervical spine CT and is therefore likely artifact. The heart remains mildly enlarged. No e vidence for pulmonary edema. No new focal lung consolidations to suggest a pneumonia. No pleural effu sions. No pneumothorax. IMPRESSION: No significant change compared to the prior study. No acute process. ACT 112: Negative or not required by law. Electronically signed by: Phu Presley M.D. 07/29/2022 8:11 AM
[2022-07-29] MEDS: ICU ELECTROLYTE REPLACEMENT PROTOCOL SCH ×2 (08:16→16:11)
--- NOTE | 2022-07-29 08:54 | Critical Care Progress Note ---
Date of Service July 29, 2022 Assessment & Plan (1) DKA (diabetic ketoacidosis): (2) Sepsis: (3) WEST (acute kidney injury): (4) Acute metabolic encephalopathy: (5) Elevated troponin: (6) Paroxysmal atrial fibrillation: (7) Pyelonephritis: Plan Reason Critically Ill: 82 YOF found down at home, arrived hypothermic, in DKA and septic shock from likely pyelonephritis Neuro - Metabolic Encephalopathy, improving [facility] ICU: ANGELIKA - She is on anticoagulation at home for her afib- intial head CT negative for any bleed or acute process- If neurological changes occur - repeat non con head CT - NO focal deficits noted Cardiac - Shock, Afib with RVR, HTN, Elevated troponin - Shock multifactorial- improving, decreasing vasoactive medication requirement - AFIB with RVR- on amiodarone at home. Continue with IV - digoxin 125mcg daily -Reviewed echo report -Continue with maintenance fluids D5 half-normal with 20 of K: Making urine - Hold antihypertensives - unable to take PO, previously on Eliquis, will convert to Lovenox -Risk-benefit ratio at high risk for embolic phenomenon versus bleeding - HScTNI in the 50s chetna demand at this time- trend Respiratory - No acute needs GI - No acute needs - Bedside swallow: if fails will obtain formal swallow study. - ok for sips and meds RENAL/LYTES - AGAP Metabolic Acidosis: Resolved WEST: Resolved hypophosphatemia: Resolved -Stopping additional IV fluids - Pyelonephritis, UTI complicated see below ID section cai to gravity ENDO - DKA: Resolved - Insulin: transitioned to subcutnaeous - electrolyte management HEME - No acute needs - thrombocytopenia: likely secondary to sepsis, ok to restart apixaban ID - Pyelonephritis, septic shock, gram-negative bacteremia: improving -De-escalate to Rocephin 1 g daily -Gram-negative bacilli in urine and blood cultures LINES/IV ACCESS - PIV, Cai - DNR/DNI DVT PROPHYLAXIS - SCDS, Lovenox DISPO: ICU I have personally spent 45 minutes of critical care time in the direct management of this patient. This is a life/limb threatening event. This includes time spent evaluating patient, direct bedside care, chart review, placing orders, interpretation of diagnostic studies, discussion with consultants, patient, and family members, as well as other required patient management activities. This time is exclusive of all separately billable procedures, and separate from and in addition to any other critical care service time. Admission and Anticipated Discharge Date Admission Date: July 27, 2022 Subjective Improving mental status. Able to respond to direct questions intermittently following complex commands. Denies belly pain. Physical Exam Physical Exam: General: Alert. Follows two-step commands Skin: Warm, dry, Head: Atraumatic Ears, nose, mouth and throat: airway patent Cardiovascular: Normal peripheral perfusion, irregularly irregular tachycardia Respiratory: no respiratory distress, mild tachypnea Gastrointestinal: Non distended Musculoskeletal: No deformity Results & Data Results & Data ([facility]) Vital Signs (Past 12 Hours) Vital Signs Temp Pulse Resp BP Pulse Ox O2 Del Method O2 Flow Rate 07/29/22 08:00 37.6 C H 115 H 38 H 95 Room Air 07/29/22 07:00 37.4 C 109 H 33 H 91 Room Air 07/29/22 07:43 118 H 07/29/22 06:14 Room Air 07/29/22 05:30 37.4 C 128 H 36 H 96 07/29/22 05:00 37.4 C 126 H 32 H 95 07/29/22 04:30 37.7 C H 120 H 42 H 95 07/29/22 04:06 116/65 07/29/22 04:06 37.6 C H 125 H 39 H 90 07/29/22 04:00 37.6 C H 122 H 40 H 90 07/29/22 03:30 37.5 C 158 H 38 H 91 07/29/22 03:00 37.4 C 114 H 47 H 95 07/29/22 02:30 37.3 C 120 H 40 H 92 07/29/22 02:04 37.2 C 122 H 36 H 96 07/29/22 02:04 96/79 L 07/29/22 02:00 37.2 C 131 H 41 H 95 07/29/22 01:30 37.1 C 119 H 38 H 98 07/29/22 01:00 37.0 C 40 H 80 L 07/29/22 00:30 37.0 C 116 H 26 H 93 07/29/22 00:17 37.0 C 116 H 34 H 98 07/29/22 00:17 123/59 L 07/29/22 00:00 36.9 C 35 H 99 07/28/22 23:30 36.8 C 155 H 35 H 98 07/28/22 23:02 36.8 C 116 H 22 99 07/28/22 23:02 98/75 L 07/28/22 23:00 36.8 C 118 H 32 H 99 07/29/22 04:00 114 H 116/65 07/29/22 04:20 Nasal Cannula 4 07/29/22 00:00 127 H 123/59 L 07/28/22 22:30 37.0 C 153 H 35 H 98 07/28/22 22:21 37.0 C 107 H 31 H 98 07/28/22 22:21 117/80 07/28/22 22:00 37.0 C 122 H 35 H 98 07/28/22 21:30 37.1 C 32 H 99 07/28/22 21:00 37.2 C 115 H 37 H 98 07/28/22 21:00 93/75 L Critical Care Results & Data Vital Signs (Past 12 Hours) Vital Signs Temp Pulse Resp BP Pulse Ox O2 Del Method O2 Flow Rate 07/29/22 08:00 37.6 C H 115 H 38 H 95 Room Air 07/29/22 07:00 37.4 C 109 H 33 H 91 Room Air 07/29/22 07:43 118 H 07/29/22 06:14 Room Air 07/29/22 05:30 37.4 C 128 H 36 H 96 07/29/22 05:00 37.4 C 126 H 32 H 95 07/29/22 04:30 37.7 C H 120 H 42 H 95 07/29/22 04:06 116/65 07/29/22 04:06 37.6 C H 125 H 39 H 90 07/29/22 04:00 37.6 C H 122 H 40 H 90 07/29/22 03:30 37.5 C 158 H 38 H 91 07/29/22 03:00 37.4 C 114 H 47 H 95 07/29/22 02:30 37.3 C 120 H 40 H 92 07/29/22 02:04 37.2 C 122 H 36 H 96 07/29/22 02:04 96/79 L 07/29/22 02:00 37.2 C 131 H 41 H 95 07/29/22 01:30 37.1 C 119 H 38 H 98 07/29/22 01:00 37.0 C 40 H 80 L 07/29/22 00:30 37.0 C 116 H 26 H 93 07/29/22 00:17 37.0 C 116 H 34 H 98 07/29/22 00:17 123/59 L 07/29/22 00:00 36.9 C 35 H 99 07/28/22 23:30 36.8 C 155 H 35 H 98 07/28/22 23:02 36.8 C 116 H 22 99 07/28/22 23:02 98/75 L 07/28/22 23:00 36.8 C 118 H 32 H 99 07/29/22 04:00 114 H 116/65 07/29/22 04:20 Nasal Cannula 4 07/29/22 00:00 127 H 123/59 L 07/28/22 22:30 37.0 C 153 H 35 H 98 07/28/22 22:21 37.0 C 107 H 31 H 98 07/28/22 22:21 117/80 07/28/22 22:00 37.0 C 122 H 35 H 98 07/28/22 21:30 37.1 C 32 H 99 07/28/22 21:00 37.2 C 115 H 37 H 98 07/28/22 21:00 93/75 L Lab & Micro Results (Past 24 Hours) RBC 3.43 M/uL (3.93-5.22) L 07/29/22 WBC 10.63 K/ul (4.8-10.8) 07/29/22 Hgb 9.3 g/dl (12.0-16.0) L 07/29/22 Hct 27.0 % (34.1-44.9) L 07/29/22 MCV 78.7 fL (80.0-100.0) L 07/29/22 MCH 27.1 pg (25.0-34.0) 07/29/22 MCHC 34.4 g/dL (32.0-36.0) 07/29/22 RDW Standard Deviation 40.9 fL (36.4-46.3) 07/29/22 RDW Coefficient of Variation 14.4 % (11.5-14.5) 07/29/22 Plt Count 27 K/uL (130-400) L* 07/29/22 Neutrophils (%) (Auto) 83.6 % 07/29/22 Lymphocytes (%) (Auto) 8.5 % 07/29/22 Monocytes # (Auto) 0.68 K/uL (0.24-0.82) 07/29/22 Eosinophils # (Auto) 0.03 K/uL (0-0.50) 07/29/22 Immature Granulocyte % (Auto) 1.0 % 07/29/22 Neutrophils # (Auto) 8.89 K/uL (1.4-6.5) H 07/29/22 Lymphocytes # (Auto) 0.90 K/uL (1.2-3.4) L 07/29/22 Monocytes # (Auto) 0.68 K/uL (0.24-0.82) 07/29/22 Eosinophils # (Auto) 0.03 K/uL (0-0.50) 07/29/22 Basophils # (Auto) 0.02 K/uL (0-0.2) 07/29/22 Immature Granulocyte # (Auto) 0.11 K/uL (0.00-0.02) H 07/29 Echinocytes 1+ 07/29/22 Acanthocytes 1+ 07/29/22 Na 132 mmol/L (136-145) L 07/29/22 K 3.8 mmol/L (3.5-5.1) 07/29/22 Cl 107 mmol/L (98-107) 07/29/22 CO2 16 mmol/L (21-32) L 07/29/22 Anion Gap 9 (3-11) 07/29/22 BUN 52 mg/dl (6-23) H 07/29/22 Creatinine 1.13 mg/dl (0.6-1.2) 07/29/22 Estimated GFR ( Amer) 51.7 ml/min 07/29/22 Estimated GFR (Non-Af Amer) 44.6 ml/min 07/29/22 BUN/Creatinine Ratio 46.0 (10-20) H 07/29/22 Glu 177 mg/dl (70-99(Fasting)) H 07/29/22 Ca 6.8 mg/dl (8.5-10.1) L 07/29/22 Phosphorus Level 1.7 mg/dl (2.5-4.9) L 07/28/22 Mg 2.2 mg/dl (1.7-2.4) 07/28/22 11:19 Calcium Level 6.8 mg/dl (8.5-10.1) L 07/29/22 05:51 Prothromb Time International Ratio 1.4 (0.9-1.1) H 07/29/22 05 :30 Venous Blood pH 7.40 (7.36-7.41) 07/28/22 11:19 Microbiology 07/27/22 14:13 Aerobic Blood Culture - Preliminary Blood Gram negative bacilli Anaerobic Blood Culture - Final 07/27/22 13:29 Aerobic Blood Culture - Preliminary Blood Gram negative bacilli Anaerobic Blood Culture - Final 07/27/22 13:28 Urine Culture - Preliminary Urine,Straight Cath Klebsiella pneumoniae Diagnostic Findings (Past 24 Hours) Chest X-Ray 07/28/22 04:00 XR chest 1V portable CLINICAL HISTORY: evaluate pulmonary metcalf TECHNIQUE: Single frontal radiograph of the chest was obtained. Comparison: Comparison is made to chest radiograph 07/27/2022 FINDINGS: No lines and tubes are seen. Calcified aortic knob is seen. The lungs are clear. No evidence of pleural effusion or pneumothorax. IMPRESSION: No acute abnormalities and in particular no evidence of pneumonia. ACT 112: Negative or not required by law. Electronically signed by: Preston Carrasquillo M.D. 07/28/2022 8:43 AM Chest X-Ray 07/29/22 04:00 XR chest 1V portable HISTORY: Shortness of breath. COMPARISON: Chest 07/28/2022. FINDINGS: There are low lung volumes. Questionable focal right apical density is not appreciated on the recent cervical spine CT and is therefore likely artifact. The heart remains mildly enlarged. No evidence for pulmonary edema. No new focal lung consolidations to suggest a pneumonia. No pleural effusions. No pneumothorax. IMPRESSION: No significant change compared to the prior study. No acute process. ACT 112: Negative or not required by law. Electronically signed by: Phu Presley M.D. 07/29/2022 8:11 AM I & O Totals 24 Hours 07/28/22 07/29/22 07/30/22 06:59 06:59 06:59 Intake Total 6952.666 / 6952.666 6222.670 / 6222.670 108.733 / 108.733 Output Total 550 / 550 1314 / 1314 40 / 40 Balance 6402.666 / 6402.666 4908.670 / 4908.670 68.733 / 68.733 Cumulative 07/27/22 12:45 thru 07/29/22 08:00 Intake Total 39106.069 Output Total 1904 Balance 09038.069 RT Ventilator Mngmt (Last Documented) Ventilator Ordered Settings Respiratory Rate 38 07/29/22 08:00 Fraction of Inspired Oxygen 45 07/27/22 13:19 Ventilator - PT Measurements Respiratory Rate 38 Coding Level of Care Code Critical Care 1st 30-74 mins Diagnoses DKA (diabetic ketoacidosis) E13.11 Diabetes mellitus complication detail: with coma Diabetes mellitus type: other specified (including ROSIO) Sepsis A41.9; R65.20; N17.9 Acute renal failure type: unspecified Sepsis acute organ dysfunction status: with acute organ dysfunction Sepsis type: sepsis due to unspecified organism Severe sepsis acute organ dysfunction type: acute renal failure Severe sepsis shock status: unspecified WEST (acute kidney injury) N17.9 Acute metabolic encephalopathy G93.41 Elevated troponin R77.8 Paroxysmal atrial fibrillation I48.0 Pyelonephritis N12 (1) DKA (diabetic ketoacidosis) Diabetes mellitus complication detail: with coma Diabetes mellitus type: other specified (including ROSIO) Qualified Code(s): E13.11 - Other specified diabetes mellitus with ketoacidosis with coma (2) Sepsis Acute renal failure type: unspecified Sepsis acute organ dysfunction status: with acute organ dysfunction Sepsis type: sepsis due to unspecified organism Severe sepsis acute organ dysfunction type: acute renal failure Severe sepsis shock status: unspecified Qualified Code(s): A41.9 - Sepsis, unspecified organism; R65.20 - Severe sepsis without septic shock; N17.9 - Acute kidney failure, unspecified
[2022-07-29] MEDS: FAMOTIDINE 20 MG in SYRINGE 3 ML IV SCH ×2 (09:33→19:54)
--- NOTE | 2022-07-29 10:15 | Pharmacy Report ---
Pharmacy Glycemic Short Note 2 - Date of Service July 29, 2022 - Glycemic Short BSG Results (Last 24 hours): 07/28/22 07/28/22 07/28/22 10:32 11:19 12:30 Glucose 169 H POC Glucose POC Glucose (other) 167 H 151 H 07/28/22 07/28/22 07/28/22 14:22 16:38 17:00 Glucose POC Glucose POC Glucose (other) 128 H 109 H 95 07/28/22 07/28/22 07/28/22 17:17 17:37 17:56 Glucose POC Glucose POC Glucose (other) 99 108 H 124 H 07/28/22 07/28/22 07/28/22 19:21 20:23 21:10 Glucose POC Glucose POC Glucose (other) 138 H 126 H 115 H 07/28/22 07/28/22 07/29/22 22:19 23:07 00:13 Glucose POC Glucose POC Glucose (other) 99 89 90 07/29/22 07/29/22 07/29/22 01:09 01:58 04:09 Glucose POC Glucose POC Glucose (other) 86 96 144 H 07/29/22 07/29/22 05:51 07:32 Glucose 177 H POC Glucose 187 H POC Glucose (other) OUTPATIENT ANTIDIABETIC REGIMEN: * Tresiba 160 units SC daily * Novolog 25 units SC AC * Metformin XR 500 mg PO daily * HbA1c: 14.8% (07/27/22) ASSESSMENT: 07/29: * Little was successfully transitioned off the insulin drip early this morning. Overall yesterday, she received ~160 units of insulin (40 units Lantus + ~120 units from the insulin drip). BSGs trended down nicely throughout the evening. * Remains on Levophed and Vasopressin, albeit at much lower doses than yesterday. Dextrose containing fluids were discontinued. Remains on Ceftriaxone for pyelonephritis and gram negative bacteremia. Also continues on amiodarone drip and digoxin IV for afib. SCr improved as well today. Speech to evaluate patient for swallowing but remains NPO at this time. * Fasting BSG was 187 mg/dL this AM. Likely secondary to D5 fluids still running once insulin drip was shut off. * Continue with Lantus 40 units this AM. During previous admissions, patient require much lower doses of insulin than home regimen (~30 units of basal per day). Will add an HS scale should BSGs trend upward throughout the day. * Novolog started q4h for now until a diet is ordered. CF/CR based on previous admission data. 07/28: * 82 yo F admitted secondary to DKA. Pharmacy was consulted yesterday to assist with inpatient glycemic management. Patient is known to our service. She is obtunded and hypotensive requiring pressors. Amiodarone infusion is running for afib. Abx for pyelonephritis. * Initial labs: Serum BSG 810 mg/dL, Anion Gap 27, CO2 10 mmol/L, VBG pH 7.09, 1+ ketonuria. * Started on an insulin drip at 6.8 units/hr, no bolus. * Received 3 L of NSS in ED. Started on Normosol-R at 150 mL/hr until BSG was less than 250 mg/dL. * Now running D5 1/2 NS + 20 KCl at 115 mL/hr. * Most recent labs: Serum BSG 169 mg/dL, Anion Gap 12, CO2 16 mmol/L, VBG pH 7.40. * Insulin drip currently running at 5.8 units/hr. Remains on D5 1/2 NS + 20 KCl fluids. * Given severity of illness, unlikely to discontinue insulin drip today despite patient no longer being in DKA. * Did give 40 units of Lantus to help with transition when that time comes. PLAN FOR INPATIENT GLYCEMIC CONTROL: * Hold outpatient oral diabetes medications * Basal insulin * Lantus 40 units SC AM * May add HS scale if BSGs trend up * Bolus insulin * NovoLog per scale Q4hrs while NPO * Goal Range: Low 110 mg/dL - High 140 mg/dL * Correction Factor: 10 mg/dL/unit * Nutritional / Prandial insulin per carb ratio of 1 unit per 3 grams CHO consumed
[2022-07-29] MEDS: APIXABAN 5 MG TABLET PO SCH ×2 (10:17→19:54)
[2022-07-29] MEDS: AMIODARONE 200 MG TAB PO SCH (10:26)
--- NOTE | 2022-07-29 16:51 | Hospitalist Progress Note ---
Date of Service July 29, 2022 Assessment & Plan (1) Septic shock: Plan: Lactate improved with IVF support and still requiring pressor support with vasopressin this afternoon. (2) Acute metabolic encephalopathy: Plan: This is an 82-year-old female with PMH DM II, paroxysmal atrial fibrillation on Eliquis, HLD, depression and other medical problems listed below who presents to the ER after being found unresponsive at home and was found to have acute metabolic encephalopathy in setting of septic shock and metabolic acidosis 2/2 DKA. Multifactorial given septic shock 2/2 pyelo with gram negative bacteremia and DKA Continue IV fluid resuscitation, antibiotics, rewarming CT head without acute intracranial abnormalities continues on pressors this afternoon (3) DKA (diabetic ketoacidosis): Plan: HAGMA 2/2 DKA in setting of elevated lactate from sepsis. Improved with current treatment Now off insulin drip and on subcutaneous therapy. Not eating yet. (4) Complicated UTI (urinary tract infection): Plan: Hypotensive, hypothermic. septic shock CT abd/pelvis with asymmetric right-sided perinephric stranding/inflammation with tiny foci of nonspecific gas within the right renal pelvis. Correlate clinically and with urinalysis for evidence of right-sided pyelonephritis Continue ceftriaxone. Kraus in place with improvement in UOP today. (5) Gram-negative bacteremia: Plan: cont abx as above. (6) Hypothermia: Plan: Initial temp 30.3 C, chino hugger in place, currently normothermic. (7) Elevated creatine kinase level: Plan: 2/2 sepsis and critical illness, cont current management. (8) Elevated troponin: Plan: Likely 2/2 demand ischemia in sepsis. No evidence of ACS or acute ischemia on EKG and echo with no acute wall motion abnormalities. severe calcification is present at the aortic valve. Also, troponin peaked and is trending down. (9) WEST (acute kidney injury): Plan: Cr 2.46 (baseline ~ 0.7) in setting of severe dehydration, infection, DKA. Continue IV fluid resuscitation, monitor closely. High risk for ATN wtih shock present. She is making urine --around 200 -400cc per day (10) Diabetes mellitus, type 2: Plan: Being managed for DKA as above. A1c reflects poor control. Once she is more alert, will have cnc maintenance mechanic speak wtih her. She is on insulin and metformin at home. Cont insulin drip here per plan above. (11) Thrombocytopenia: Plan: Low at 27 likely related to consumption from sepsis. (12) Paroxysmal atrial fibrillation: Plan: Home regimen includes amiodarone, Lopressor and Eliquis for anticoagulation DVT Ppx: SCDs, on Eliquis normally for stroke ppx given A fib. Started on full dose Lovenox by ICU. Code status: DNR/DNI PCP: Genna Benites Dispo: [facility] Admission and Anticipated Discharge Date Admission Date: July 27, 2022 Subjective 82-year-old critically ill female presenting with sepsis and DKA secondary to pyelonephritis. She is still requiring vasopressor therapy (levophed off , vasopressin still going) with tachycardia improved. Stil lwith tachypnea, which also appears improved. Confused improved per RN and ICU physician, however, she is somnolent for me today. Review of Systems Review of Systems: Unable to obtain secondary to somnolence. Physical Exam Physical Exam: CONSTITUTIONAL: WNWD, vitals as above, ill appearing, elderly, tachypneic, appears more comfortable and not in acute distress. EYES: normal conjunctivae, no scleral icterus ENT: external ear and nose normal, MMM NECK: trachea midline RESPIRATORY: clear to auscultation bilaterally, no crackles, rales or wheezes, increased respiratory effort. CARDIOVASCULAR: tachy rate and regular rhythm, S1 and 2 heard without murmurs, gallops or rubs, no peripheral edema CHEST: inspection of chest was normal GASTROINTESTINAL: soft, nondistended, no guarding. MUSCULOSKELETAL: cannot assess 2/2 confusion. SKIN: warm and dry NEUROLOGIC: cannot assess 2/2 confusion but appears generally nonfocal. somnolent Results & Data Results & Data ([facility]) Vital Signs (Past 12 Hours) Vital Signs Temp Pulse Resp BP Pulse Ox O2 Del Method O2 Flow Rate 07/29/22 16:00 37.4 C 117 H 33 H 94 Room Air 07/29/22 15:00 37.7 C H 125 H 36 H 92 Nasal Cannula 2 07/29/22 14:00 37.8 C H 117 H 40 H 118/86 95 07/29/22 13:00 37.8 C H 109 H 38 H 96 07/29/22 12:00 37.7 C H 37 H 137/55 L 97 07/29/22 11:00 37.7 C H 111 H 39 H 116/81 97 Nasal Cannula 2 07/29/22 10:00 37.5 C 117 H 31 H 98 Nasal Cannula 2 07/29/22 09:01 37.5 C 120 H 28 H 98 07/29/22 08:00 37.6 C H 115 H 38 H 95 Room Air 07/29/22 07:00 37.4 C 109 H 33 H 91 Room Air 07/29/22 08:41 Nasal Cannula 2 07/29/22 07:43 118 H 07/29/22 06:14 Room Air 07/29/22 05:30 37.4 C 128 H 36 H 96 07/29/22 05:00 37.4 C 126 H 32 H 95 Laboratory Results Short CBC 07/29/22 Range/Units 05:30 WBC 10.63 (4.8-10.8) K/ul Hgb 9.3 L (12.0-16.0) g/dl Hct 27.0 L (34.1-44.9) % Plt Count 27 L* (130-400) K/uL BMP 07/29/22 05:51 Sodium 132 L Potassium 3.8 Chloride 107 Carbon Dioxide 16 L BUN 52 H Creatinine 1.13 D Glucose 177 H Calcium 6.8 L Diagnostic Findings Chest X-Ray 07/29/22 04:00 XR chest 1V portable HISTORY: Shortness of breath. COMPARISON: Chest 07/28/2022. FINDINGS: There are low lung volumes. Questionable focal right apical density is not appreciated on the recent cervical spine CT and is therefore likely artifact. The heart remains mildly enlarged. No evidence for pulmonary edema. No new focal lung consolidations to suggest a pneumonia. No pleural effusions. No pneumothorax. IMPRESSION: No significant change compared to the prior study. No acute process. ACT 112: Negative or not required by law. Electronically signed by: Phu Presley M.D. 07/29/2022 8:11 AM Medications Administered Current Inpatient Medications Amiodarone HCl (Amiodarone 200 Mg Tab) 100 mg PO DAILY [facility] Stop: 08/27/22 08:59 Last Admin: 07/29/22 10:26 Dose: 100 mg Apixaban (Apixaban 5 Mg Tablet) 5 mg PO BID [facility] Stop: 08/26/22 20:59 Last Admin: 07/29/22 10:17 Dose: 5 mg Atorvastatin Calcium (Atorvastatin 10 Mg Tab) 10 mg PO DAILY [facility] Stop: 08/27/22 08:59 Last Admin: 07/29/22 07:37 Dose: Not Given Dextrose (Dextrose 50% 50 Ml Syringe) 25 - 50 ml IV UD PRN; Protocol PRN Reason: Hypoglycemia Protocol Stop: 08/26/22 14:47 Diclofenac Sodium (Diclofenac Sod 1% Gel 100 Gm Tube) 1 gm EXT BID PRN; Protocol PRN Reason: Pain Stop: 08/26/22 19:43 Docusate Sodium (Docusate Sodium 100 Mg Cap) 100 mg PO BID PRN PRN Reason: Constipation Stop: 08/26/22 19:43 Glucagon (Glucagon For Inj 1 Mg Vial) 1 mg SQ UD PRN; Protocol PRN Reason: Hypoglycemia Protocol Stop: 08/26/22 14:47 Glucose (Glucose 40% Gel 15 Gm Tube) 15 - 30 gm PO UD PRN; Protocol PRN Reason: Hypoglycemia Protocol Stop: 08/26/22 14:47 Glucose (Glucose 10 Tab/Tube) 4 - 8 tab PO UD PRN; Protocol PRN Reason: Hypoglycemia Treatment Stop: 08/26/22 14:47 Norepinephrine Bitartrate (Levophed/D5w) 4 mg in 250 mls @ 79.875 mls/hr IV .Q3H8M [facility]; Protocol Stop: 08/26/22 19:44 Last Titration: 07/29/22 14:40 Dose: 0.01 mcg/kg/min, 2.7 mls/hr Vasopressin 20 units/ Sodium (Chloride) 101 mls @ 12.12 mls/hr IV .Q8H20M [facility] Stop: 08/26/22 22:44 Last Admin: 07/29/22 16:08 Dose: 0.04 unit/min, 12.1 mls/hr Digoxin 125 mcg/ Syringe 10 mls @ 2 mls/min IV DAILY [facility] Stop: 08/28/22 08:59 Last Admin: 07/29/22 07:43 Dose: 2 mls/min Ceftriaxone Sodium 2,000 mg/ (Dextrose) 70 mls @ 140 mls/hr IV Q24H [facility] Stop: 08/11/22 17:59 Last Infusion: 07/28/22 17:49 Dose: Infused Acetaminophen (Ofirmev) 1,000 mg in 100 mls @ 400 mls/hr IV Q8H PRN PRN Reason: Pain or Fever Stop: 07/31/22 16:51 Last Infusion: 07/28/22 17:24 Dose: Infused Famotidine 20 mg/ Syringe 5 mls @ 2.5 mls/min IV Q12 [facility] Stop: 08/28/22 09:14 Last Admin: 07/29/22 09:33 Dose: 2.5 mls/min Insulin Aspart (Insulin Aspart Per Unit) 0 units SC Q4 [facility]; Protocol Stop: 08/28/22 07:59 Last Admin: 07/29/22 16:07 Dose: Not Given Insulin Glargine (Lantus Per Unit Charge) 40 units SQ DAILY [facility]; Protocol Stop: 08/27/22 08:59 Last Admin: 07/29/22 07:42 Dose: 40 units Lactobacillus Acidophilus (Advanced Probiotic 1250 Mg Capsule) 2 cap PO DAILY [facility] Stop: 08/27/22 08:59 Magnesium Oxide (Magnesium Oxide 400 Mg Tab) 400 mg PO QAM [facility] Stop: 08/27/22 08:59 Metoprolol Tartrate (Metoprolol Tartrate 25 Mg Tab) 25 mg PO BID [facility] Stop: 08/26/22 20:59 Last Admin: 07/27/22 19:53 Dose: Not Given Miscellaneous (Carbohydrates For Hypoglycemia ) 15 - 30 gm PO UD PRN PRN Reason: Hypoglycemia Protocol Stop: 08/26/22 14:47 Miscellaneous (Icu Electrolyte Replacement Protocol) 1 each N/A BID@06,18 [facility]; Protocol Stop: 08/04/22 05:59 Last Admin: 07/29/22 16:11 Dose: Not Given Miscellaneous Information (Pharmacy Glycemic Mgmt Consult) 1 each N/A UD PRN PRN Reason: Consult Stop: 08/26/22 14:51 Polyethylene Glycol (Polyethylene (Miralax) 17 Gm Pack) 17 gm PO DAILY PRN PRN Reason: Constipation Stop: 08/26/22 19:43 Potassium Chloride (Potassium Chloride Crtab 20 Meq Tabcr) 20 meq PO DAILY [facility] Stop: 08/27/22 08:59 Last Admin: 07/29/22 07:37 Dose: Not Given Vitamin D (Cholecalciferol 1,000 Units 25 Mcg Tab) 2,000 units PO DAILY [facility]I Stop: 08/27/22 08:59
[2022-07-29] MEDS: cefTRIAXone SODIUM 2,000 MG in DEXTROSE 5% 50 ML IV SCH (17:46)
[2022-07-30] MEDS: DEXTROSE 50% 50 ML SYRINGE IV PRN ×2 (00:44→06:14)
[2022-07-30] MEDS: VASOPRESSIN 20 UNITS in 0.9 % SODIUM CHLORIDE 100 ML IV SCH (00:52)
[2022-07-30] MEDS: INSULIN ASPART PER UNIT SC SCH ×5 (00:53→20:07)
[2022-07-30 05:34] LABS: Basophils # (auto) 0.01 K/uL (0-0.2); Basophils % (auto) 0.1 %; Eosinophils # (auto) 0.07 K/uL (0-0.50); Eosinophils % (auto) 0.8 %; Hematocrit (blood only) 25.5 % (34.1-44.9); Hemoglobin 8.8 g/dl (12.0-16.0); Immature Granulocytes # (auto) 0.07 K/uL (0.00-0.02); Immature Granulocytes % (auto) 0.8 %; Lymphocytes # (auto) 1.15 K/uL (1.2-3.4); Lymphocytes % (auto) 12.5 %; Mean Corpuscular Hemoglobin 27.2 pg (25.0-34.0); Mean Corpuscular Hgb Conc 34.5 g/dL (32.0-36.0); Mean Corpuscular Volume 78.9 fL (80.0-100.0); Mean Platelet Volume 11.7 fL (9.4-12.3); Monocytes # (auto) 0.66 K/uL (0.24-0.82); Monocytes % (auto) 7.2 %; Neutrophils # (auto) 7.21 K/uL (1.4-6.5); Neutrophils % (auto) 78.6 %; Platelet Count 32 K/uL (130-400); RDW Coefficient of Variation 14.7 % (11.5-14.5); Red Blood Count 3.23 M/uL (3.93-5.22); White Blood Count 9.17 K/ul (4.8-10.8)
[2022-07-30 06:01] LABS: BUN Creatinine Ratio 52.2 (10-20); Creatinine Clr Calc Pharmacy 44.1 ml/min; Est GFR (African American) 66.3 ml/min; Est GFR (Non-African American) 57.2 ml/min; Magnesium 1.8 mg/dl (1.7-2.4); Phosphorus 2.5 mg/dl (2.5-4.9); Potassium 3.3 mmol/L (3.5-5.1)
[2022-07-30] MEDS: ICU ELECTROLYTE REPLACEMENT PROTOCOL SCH ×2 (06:21→16:30)
[2022-07-30] MEDS: D5W AND 1/2NSS 1,000 ML IV SCH (06:29)
[2022-07-30] MEDS: POTASSIUM CHLORIDE / WTR 10 MEQ/100 ML PLCT IV SCH ×7 (06:40→14:49)
[2022-07-30] MEDS: POT PHOSPHATE MONOBASIC W/ SOD TAB PO SCH ×3 (06:40→13:50)
[2022-07-30] MEDS: MAGNESIUM SULFATE / D5W 1 GM/100 ML BAG IV SCH ×2 (06:40→08:30)
[2022-07-30] MEDS: APIXABAN 5 MG TABLET PO SCH ×2 (08:31→20:01)
[2022-07-30] MEDS: DIGOXIN 125 MCG in SYRINGE 9.5 ML IV SCH (08:31)
[2022-07-30] MEDS: FAMOTIDINE 20 MG in SYRINGE 3 ML IV SCH ×2 (08:32→20:02)
[2022-07-30] MEDS: AMIODARONE 200 MG TAB PO SCH (08:32)
[2022-07-30] MEDS: ATORVASTATIN 10 MG TAB PO SCH (08:32)
[2022-07-30] MEDS: POTASSIUM CHLORIDE CRTAB 20 MEQ TABCR PO SCH ×3 (08:32→20:03)
[2022-07-30] MEDS ORDERED: LANTUS PER UNIT CHARGE SQ SCH (09:00)
--- NOTE | 2022-07-30 10:05 | Critical Care Progress Note ---
Date of Service July 30, 2022 Assessment & Plan (1) DKA (diabetic ketoacidosis): (2) Sepsis: (3) WEST (acute kidney injury): (4) Acute metabolic encephalopathy: (5) Elevated troponin: (6) Paroxysmal atrial fibrillation: (7) Pyelonephritis: Plan Reason Critically Ill: 82 YOF found down at home, arrived hypothermic, in DKA and septic shock from likely pyelonephritis Neuro - Metabolic Encephalopathy, improving CAM ICU: ANGELIKA - She is on anticoagulation at home for her afib- intial head CT negative for any bleed or acute process- If neurological changes occur - repeat non con head CT - NO focal deficits noted Cardiac - Shock, Afib with RVR, HTN, Elevated troponin: Resolved - Shock multifactorial- improving, decreasing vasoactive medication requirement -Adding midodrine at this time - AFIB with RVR- on amiodarone at home. Continue with IV - digoxin 125mcg daily -Check digoxin level - Hold antihypertensives Respiratory - No acute needs GI - No acute needs -Advance diet today RENAL/LYTES - AGAP Metabolic Acidosis: Resolved WEST: Resolved hypophosphatemia: Resolved -Mild hypokalemia: Supplemental potassium given - Pyelonephritis, UTI complicated see below ID section cai to gravity ENDO - DKA: Resolved - Insulin: transitioned to subcutnaeous - electrolyte management HEME - No acute needs - ok to restart apixaban ID - Pyelonephritis, septic shock, gram-negative bacteremia: improving -De-escalate to Rocephin 1 g daily -Gram-negative bacilli in urine and blood cultures LINES/IV ACCESS - PIV, Cai - DNR/DNI I updated the patient's daughter regarding her imrpvoing clinical condition DVT PROPHYLAXIS - SCDS, Lovenox DISPO: ICU I have personally spent 45 minutes of critical care time in the direct management of this patient. This is a life/limb threatening event. This includes time spent evaluating patient, direct bedside care, chart review, placing orders, interpretation of diagnostic studies, discussion with consultants, patient, and family members, as well as other required patient management activities. This time is exclusive of all separately billable procedures, and separate from and in addition to any other critical care service time. Admission and Anticipated Discharge Date Admission Date: July 27, 2022 Subjective Feels improved. No overnight events. Weaned off vasopressin currently Physical Exam Physical Exam: General: Alert. nontoxic. Skin: Warm, dry, Head: Atraumatic Ears, nose, mouth and throat: airway patent Cardiovascular: Normal peripheral perfusion Respiratory: no respiratory distress Gastrointestinal: Non distended Musculoskeletal: No deformity Results & Data Results & Data ([facility]) Vital Signs (Past 12 Hours) Vital Signs Temp Pulse Resp BP Pulse Ox O2 Del Method O2 Flow Rate 07/30/22 09:00 37.5 C 104 H 32 H 98 07/30/22 08:03 37.6 C H 30 H 100 07/30/22 08:00 37.6 C H 106 H 26 H 100 07/30/22 08:31 99 H 07/30/22 07:00 37.4 C 32 H 99 Nasal Cannula 2 07/30/22 07:35 Nasal Cannula 2 07/30/22 06:00 37.3 C 113 H 30 H 111/91 100 Nasal Cannula 2 07/30/22 05:00 37.3 C 113 H 28 H 96 Nasal Cannula 2 07/30/22 04:00 37.0 C 115 H 26 H 122/60 97 Nasal Cannula 2 07/30/22 03:00 37.1 C 103 H 26 H 92 Room Air 07/30/22 02:00 37.1 C 105 H 24 123/89 93 Room Air 07/30/22 01:00 37.2 C 99 H 26 H 100/62 93 Room Air 07/30/22 00:00 37.1 C 106 H 27 H 108/68 92 Room Air 07/29/22 23:00 37.4 C 115 H 26 H 95 Room Air Critical Care Results & Data Vital Signs (Past 12 Hours) Vital Signs Temp Pulse Resp BP Pulse Ox O2 Del Method O2 Flow Rate 07/30/22 13:00 36.9 C 111 H 26 H 98 Nasal Cannula 2 07/30/22 12:00 36.9 C 32 H 103/68 97 Nasal Cannula 2 07/30/22 11:00 37.2 C 108 H 27 H 97 07/30/22 10:00 37.5 C 123 H 33 H 97 Nasal Cannula 2 07/30/22 10:43 Nasal Cannula 07/30/22 09:00 37.5 C 104 H 32 H 98 07/30/22 08:03 37.6 C H 30 H 100 07/30/22 08:00 37.6 C H 106 H 26 H 100 07/30/22 08:31 99 H 07/30/22 07:00 37.4 C 32 H 99 Nasal Cannula 2 07/30/22 07:35 Nasal Cannula 2 07/30/22 06:00 37.3 C 113 H 30 H 111/91 100 Nasal Cannula 2 07/30/22 05:00 37.3 C 113 H 28 H 96 Nasal Cannula 2 07/30/22 04:00 37.0 C 115 H 26 H 122/60 97 Nasal Cannula 2 07/30/22 03:00 37.1 C 103 H 26 H 92 Room Air Lab & Micro Results (Past 24 Hours) RBC 3.23 M/uL (3.93-5.22) L 07/30/22 WBC 9.17 K/ul (4.8-10.8) 07/30/22 Hgb 8.8 g/dl (12.0-16.0) L 07/30/22 Hct 25.5 % (34.1-44.9) L 07/30/22 MCV 78.9 fL (80.0-100.0) L 07/30/22 MCH 27.2 pg (25.0-34.0) 07/30/22 MCHC 34.5 g/dL (32.0-36.0) 07/30/22 RDW Standard Deviation 43.0 fL (36.4-46.3) 07/30/22 RDW Coefficient of Variation 14.7 % (11.5-14.5) H 07/30/22 Plt Count 32 K/uL (130-400) L 07/30/22 MPV 11.7 fL (9.4-12.3) 07/30/22 Neutrophils (%) (Auto) 78.6 % 07/30/22 Lymphocytes (%) (Auto) 12.5 % 07/30/22 Monocytes # (Auto) 0.66 K/uL (0.24-0.82) 07/30/22 Eosinophils # (Auto) 0.07 K/uL (0-0.50) 07/30/22 Immature Granulocyte % (Auto) 0.8 % 07/30/22 Neutrophils # (Auto) 7.21 K/uL (1.4-6.5) H 07/30/22 Lymphocytes # (Auto) 1.15 K/uL (1.2-3.4) L 07/30/22 Monocytes # (Auto) 0.66 K/uL (0.24-0.82) 07/30/22 Eosinophils # (Auto) 0.07 K/uL (0-0.50) 07/30/22 Basophils # (Auto) 0.01 K/uL (0-0.2) 07/30/22 Immature Granulocyte # (Auto) 0.07 K/uL (0.00-0.02) H 07/30 Na 134 mmol/L (136-145) L 07/30/22 K 3.3 mmol/L (3.5-5.1) L 07/30/22 Cl 109 mmol/L (98-107) H 07/30/22 CO2 18 mmol/L (21-32) L 07/30/22 Anion Gap 7 (3-11) 07/30/22 BUN 48 mg/dl (6-23) H 07/30/22 Creatinine 0.92 mg/dl (0.6-1.2) 07/30/22 Estimated GFR ( Amer) 66.3 ml/min 07/30/22 Estimated GFR (Non-Af Amer) 57.2 ml/min 07/30/22 BUN/Creatinine Ratio 52.2 (10-20) H 07/30/22 Glu 65 mg/dl (70-99(Fasting)) L 07/30/22 Ca 7.0 mg/dl (8.5-10.1) L 07/30/22 Phosphorus Level 2.5 mg/dl (2.5-4.9) 07/30/22 Total Bilirubin 0.6 mg/dl (0.2-1.0) 07/30/22 Direct Bilirubin 0.2 mg/dl (0-0.2) 07/30/22 AST 55 U/L (13-39) H 07/30/22 ALT 33 U/L (7-52) 07/30/22 Alkaline Phosphatase 310 U/L (34-104) H 07/30/22 TP 5.3 gm/dl (6.0-8.3) L 07/30/22 Albumin 2.2 gm/dl (3.4-5.0) L 07/30/22 Mg 1.8 mg/dl (1.7-2.4) 07/30/22 05:15 Calcium Level 7.0 mg/dl (8.5-10.1) L 07/30/22 05:15 Microbiology 07/29/22 05:30 Aerobic Blood Culture - Preliminary Blood No growth in Aerobic bottle after 24 hours. Anaerobic Blood Culture - Final 07/27/22 14:13 Aerobic Blood Culture - Final Blood Klebsiella pneumoniae Anaerobic Blood Culture - Final 07/27/22 13:29 Aerobic Blood Culture - Final Blood Klebsiella pneumoniae Anaerobic Blood Culture - Final 07/29/22 05:30 Aerobic Blood Culture - Preliminary Blood No growth in Aerobic bottle after 24 hours. Anaerobic Blood Culture - Preliminary No growth in Anaerobic bottle after 24 hours. 07/27/22 13:28 Urine Culture - Final Urine,Straight Cath Klebsiella pneumoniae I & O Totals 24 Hours 07/29/22 07/30/22 07/31/22 06:59 06:59 06:59 Intake Total 6222.670 / 6222.670 1685.908 / 1685.908 786.000 / 786.000 Output Total 1314 / 1314 1208 / 1208 401 / 401 Balance 4908.670 / 4908.670 477.908 / 477.908 385.000 / 385.000 Cumulative 07/27/22 12:45 thru 07/30/22 13:48 Intake Total 30353.244 Output Total 3473 Balance 14885.244 RT Ventilator Mngmt (Last Documented) Ventilator Ordered Settings Respiratory Rate 26 07/30/22 13:00 Fraction of Inspired Oxygen 45 07/27/22 13:19 Ventilator - PT Measurements Respiratory Rate 26 Coding Level of Care Code Critical Care 1st 30-74 mins Diagnoses DKA (diabetic ketoacidosis) E13.11 Diabetes mellitus complication detail: with coma Diabetes mellitus type: other specified (including ROSIO) Sepsis A41.9; R65.20; N17.9 Acute renal failure type: unspecified Sepsis acute organ dysfunction status: with acute organ dysfunction Sepsis type: sepsis due to unspecified organism Severe sepsis acute organ dysfunction type: acute renal failure Severe sepsis shock status: unspecified WEST (acute kidney injury) N17.9 Acute metabolic encephalopathy G93.41 Elevated troponin R77.8 Paroxysmal atrial fibrillation I48.0 Pyelonephritis N12 (1) DKA (diabetic ketoacidosis) Diabetes mellitus complication detail: with coma Diabetes mellitus type: other specified (including ROSIO) Qualified Code(s): E13.11 - Other specified diabetes mellitus with ketoacidosis with coma (2) Sepsis Acute renal failure type: unspecified Sepsis acute organ dysfunction status: with acute organ dysfunction Sepsis type: sepsis due to unspecified organism Severe sepsis acute organ dysfunction type: acute renal failure Severe sepsis shock status: unspecified Qualified Code(s): A41.9 - Sepsis, unspecified organism; R65.20 - Severe sepsis without septic shock; N17.9 - Acute kidney failure, unspecified
[2022-07-30 10:51] LABS: Albumin Level 2.2 gm/dl (3.4-5.0); Bilirubin Direct 0.2 mg/dl (0-0.2); Bilirubin,Total 0.6 mg/dl (0.2-1.0); Total Protein 5.3 gm/dl (6.0-8.3)
[2022-07-30] MEDS: MIDODRINE HCL 2.5 MG TAB PO SCH ×3 (11:28→20:02)
--- NOTE | 2022-07-30 13:43 | Pharmacy Report ---
Pharmacy Glycemic Short Note 2 - Date of Service July 30, 2022 - Glycemic Short BSG Results (Last 24 hours): 07/29/22 07/29/22 07/30/22 16:04 19:34 00:40 Glucose POC Glucose 109 H 83 57 L* 07/30/22 07/30/22 07/30/22 00:41 01:03 03:57 Glucose POC Glucose 55 L* 119 H 71 07/30/22 07/30/22 07/30/22 05:15 06:11 06:12 Glucose 65 L POC Glucose 59 L* 65 L* 07/30/22 07/30/22 07/30/22 06:31 07:30 11:32 Glucose POC Glucose 120 H 88 106 H OUTPATIENT ANTIDIABETIC REGIMEN: * Tresiba 160 units SC daily * Novolog 25 units SC AC * Metformin XR 500 mg PO daily * HbA1c: 14.8% (07/27/22) ASSESSMENT: 07/30: * Patient's BSGs trended down significantly throughout the day yesterday: [id number] mg/dL. Received 40 units of basal + 7 units of bolus yesterd ay. * Was hypoglycemic overnight into this AM. Thankfully patient was asymptomatic with both episodes. First, BSG around 0000 was 57 mg/dL, received 1/2 amp of D50 and repeat BSG was 119 mg/dL. Next, BSG around 0600 was 59 mg/dL, again received 1/2 amp of D50 and repeat was 120 mg/dL. Likely due to excessive basal doses. * At this point, patient was started on D5 1/2 NS at 50 cc/hr. * BSG at 0730 was 88 mg/dL. Held AM basal dose. Lunchtime BSG only 106 mg/dL. Will continue holding basal insulin for now. Plan for a scaled dinner Lantus dose should BSG be elevated. * Loosened Novolog parameters significantly as well. Off pressors as of this moment. Remains on Rocephin. Still NPO. 07/29: * Little was successfully transitioned off the insulin drip early this morning. Overall yesterday, she received ~160 units of insulin (40 units Lantus + ~120 units from the insulin drip). BSGs trended down nicely throughout the evening. * Remains on Levophed and Vasopressin, albeit at much lower doses than yesterday. Dextrose containing fluids were discontinued. Remains on Ceftriaxone for pyelonephritis and gram negative bacteremia. Also continues on amiodarone drip and digoxin IV for afib. SCr improved as well today. Speech to evaluate patient for swallowing but remains NPO at this time. * Fasting BSG was 187 mg/dL this AM. Likely secondary to D5 fluids still running once insulin drip was shut off. * Continue with Lantus 40 units this AM. During previous admissions, patient require much lower doses of insulin than home regimen (~30 units of basal per day). Will add an HS scale should BSGs trend upward throughout the day. * Novolog started q4h for now until a diet is ordered. CF/CR based on previous admission data. 07/28: * 82 yo F admitted secondary to DKA. Pharmacy was consulted yesterday to assist with inpatient glycemic management. Patient is known to our service. She is obtunded and hypotensive requiring pressors. Amiodarone infusion is running for afib. Abx for pyelonephritis. * Initial labs: Serum BSG 810 mg/dL, Anion Gap 27, CO2 10 mmol/L, VBG pH 7.09, 1+ ketonuria. * Started on an insulin drip at 6.8 units/hr, no bolus. * Received 3 L of NSS in ED. Started on Normosol-R at 150 mL/hr until BSG was less than 250 mg/dL. * Now running D5 1/2 NS + 20 KCl at 115 mL/hr. * Most recent labs: Serum BSG 169 mg/dL, Anion Gap 12, CO2 16 mmol/L, VBG pH 7.40. * Insulin drip currently running at 5.8 units/hr. Remains on D5 1/2 NS + 20 KCl fluids. * Given severity of illness, unlikely to discontinue insulin drip today despite patient no longer being in DKA. * Did give 40 units of Lantus to help with transition when that time comes. PLAN FOR INPATIENT GLYCEMIC CONTROL: * Hold outpatient oral diabetes medications * Basal insulin * Lantus 40 units SC AM * May add HS scale if BSGs trend up * Bolus insulin * NovoLog per scale Q4hrs while NPO * Goal Range: Low 110 mg/dL - High 140 mg/dL * Correction Factor: 10 mg/dL/unit * Nutritional / Prandial insulin per carb ratio of 1 unit per 3 grams CHO consumed
--- NOTE | 2022-07-30 14:37 | Hospitalist Progress Note ---
Date of Service July 30, 2022 Assessment & Plan (1) Septic shock: Plan: Resuscitated off pressor support. Continues on maintenance fluids. (2) Acute metabolic encephalopathy: Plan: This is an 82-year-old female with PMH DM II, paroxysmal atrial fibrillation on Eliquis, HLD, depression and other medical problems listed below who presents to the ER after being found unresponsive at home and was found to have acute metabolic encephalopathy in setting of septic shock and metabolic acidosis 2/2 DKA. Multifactorial given septic shock 2/2 pyelo with gram negative bacteremia and DKA Continue IV fluid resuscitation, antibiotics, rewarming CT head without acute intracranial abnormalities continues on pressors this afternoon (3) DKA (diabetic ketoacidosis): Plan: HAGMA 2/2 DKA in setting of elevated lactate from sepsis. Improved with current treatment Now off insulin drip and on subcutaneous therapy. Not eating yet. (4) Complicated UTI (urinary tract infection): Plan: Hypotensive, hypothermic. septic shock CT abd/pelvis with asymmetric right-sided perinephric stranding/inflammation with tiny foci of nonspecific gas within the right renal pelvis. Correlate clinically and with urinalysis for evidence of right-sided pyelonephritis Continue ceftriaxone. Kraus in place with improvement in UOP today. (5) Gram-negative bacteremia: Plan: cont abx as above. (6) Hypothermia: Plan: Initial temp 30.3 C, chino hugger in place, currently normothermic. (7) Elevated creatine kinase level: Plan: 2/2 sepsis and critical illness, cont current management. (8) Elevated troponin: Plan: Likely 2/2 demand ischemia in sepsis. No evidence of ACS or acute ischemia on EKG and echo with no acute wall motion abnormalities. severe calcification is present at the aortic valve. Also, troponin peaked and is trending down. (9) WEST (acute kidney injury): Plan: In setting of severe dehydration, infection, DKA. Resolved after IV fluid resuscitation and her urine output has improved. (10) Diabetes mellitus, type 2: Plan: Being managed for DKA as above. A1c reflects poor control. She is not yet eating and continues on subcutaneous insulin at this time. early childhood educator aide to see her when she is more awake. (11) Thrombocytopenia: Plan: Low but improved likely related to consumption from sepsis. Improvement is reflective of overall recovery (12) Paroxysmal atrial fibrillation: Plan: Home regimen includes amiodarone, Lopressor and Eliquis for anticoagulation DVT Ppx: SCDs, on Eliquis normally for stroke ppx given A fib. Started on full dose Lovenox by ICU. Code status: DNR/DNI PCP: Genna Benites Dispo: Admitted to ICU DO Macho Siddiqui Hospitalist Admission and Anticipated Discharge Date Admission Date: July 27, 2022 Subjective 82-year-old critically ill female presenting with sepsis and DKA secondary to pyelonephritis. Reports significant fatigue and is somnolent Denies any pain Reports her breathing is improved. She is now off pressor therapy and receiving maintenance IV fluids. Pulse is 103 bpm and respiration has improved Review of Systems Review of Systems: As above, and unable to obtain secondary to somnolence. Physical Exam Physical Exam: CONSTITUTIONAL: WNWD, vitals as above, ill appearing, elderly, appears more comfortable and not in acute distress. EYES: normal conjunctivae, no scleral icterus ENT: external ear and nose normal, MMM NECK: trachea midline RESPIRATORY: clear to auscultation bilaterally, no crackles, rales or wheezes, increased respiratory effort. CARDIOVASCULAR: tachy rate and regular rhythm, S1 and 2 heard without murmurs, gallops or rubs, no peripheral edema CHEST: inspection of chest was normal GASTROINTESTINAL: soft, nondistended, no guarding. MUSCULOSKELETAL: she is able to raise her arms bilaterally without much help but otherwise is so tired she does not move even her neck side to side. SKIN: warm and dry NEUROLOGIC: cannot assess 2/2 confusion but appears generally nonfocal. somnolent Results & Data Results & Data ([facility]) Vital Signs (Past 12 Hours) Vital Signs Temp Pulse Resp BP Pulse Ox O2 Del Method O2 Flow Rate 07/30/22 13:00 36.9 C 111 H 26 H 98 Nasal Cannula 2 07/30/22 12:00 36.9 C 32 H 103/68 97 Nasal Cannula 2 07/30/22 11:00 37.2 C 108 H 27 H 97 07/30/22 10:00 37.5 C 123 H 33 H 97 Nasal Cannula 2 07/30/22 10:43 Nasal Cannula 07/30/22 09:00 37.5 C 104 H 32 H 98 07/30/22 08:03 37.6 C H 30 H 100 07/30/22 08:00 37.6 C H 106 H 26 H 100 07/30/22 08:31 99 H 07/30/22 07:00 37.4 C 32 H 99 Nasal Cannula 2 07/30/22 07:35 Nasal Cannula 2 07/30/22 06:00 37.3 C 113 H 30 H 111/91 100 Nasal Cannula 2 07/30/22 05:00 37.3 C 113 H 28 H 96 Nasal Cannula 2 07/30/22 04:00 37.0 C 115 H 26 H 122/60 97 Nasal Cannula 2 07/30/22 03:00 37.1 C 103 H 26 H 92 Room Air Laboratory Results Short CBC 07/30/22 Range/Units 05:15 WBC 9.17 (4.8-10.8) K/ul Hgb 8.8 L (12.0-16.0) g/dl Hct 25.5 L (34.1-44.9) % Plt Count 32 L (130-400) K/uL BMP 07/30/22 05:15 Sodium 134 L Potassium 3.3 L Chloride 109 H Carbon Dioxide 18 L BUN 48 H Creatinine 0.92 Glucose 65 L Calcium 7.0 L Liver Function 07/30/22 Range/Units 10:17 Total Bilirubin 0.6 (0.2-1.0) mg/dl Direct Bilirubin 0.2 (0-0.2) mg/dl AST 55 H (13-39) U/L ALT 33 (7-52) U/L Alkaline Phosphatase 310 H (34-104) U/L Albumin 2.2 L (3.4-5.0) gm/dl Medications Administered Current Inpatient Medications Amiodarone HCl (Amiodarone 200 Mg Tab) 100 mg PO DAILY TITI Stop: 08/27/22 08:59 Last Admin: 07/30/22 08:32 Dose: 100 mg Apixaban (Apixaban 5 Mg Tablet) 5 mg PO BID TITI Stop: 08/26/22 20:59 Last Admin: 07/30/22 08:31 Dose: 5 mg Atorvastatin Calcium (Atorvastatin 10 Mg Tab) 10 mg PO DAILY TITI Stop: 08/27/22 08:59 Last Admin: 07/30/22 08:32 Dose: 10 mg Dextrose (Dextrose 50% 50 Ml Syringe) 25 - 50 ml IV UD PRN; Protocol PRN Reason: Hypoglycemia Protocol Stop: 08/26/22 14:47 Last Admin: 07/30/22 06:14 Dose: 25 ml Diclofenac Sodium (Diclofenac Sod 1% Gel 100 Gm Tube) 1 gm EXT BID PRN; Protocol PRN Reason: Pain Stop: 08/26/22 19:43 Docusate Sodium (Docusate Sodium 100 Mg Cap) 100 mg PO BID PRN PRN Reason: Constipation Stop: 08/26/22 19:43 Glucagon (Glucagon For Inj 1 Mg Vial) 1 mg SQ UD PRN; Protocol PRN Reason: Hypoglycemia Protocol Stop: 08/26/22 14:47 Glucose (Glucose 40% Gel 15 Gm Tube) 15 - 30 gm PO UD PRN; Protocol PRN Reason: Hypoglycemia Protocol Stop: 08/26/22 14:47 Glucose (Glucose 10 Tab/Tube) 4 - 8 tab PO UD PRN; Protocol PRN Reason: Hypoglycemia Treatment Stop: 08/26/22 14:47 Norepinephrine Bitartrate (Levophed/D5w) 4 mg in 250 mls @ 79.875 mls/hr IV .Q3H8M TITI; Protocol Stop: 08/26/22 19:44 Last Titration: 07/30/22 07:08 Dose: 0 mcg/kg/min, 0 mls/hr Vasopressin 20 units/ Sodium (Chloride) 101 mls @ 12.12 mls/hr IV .Q8H20M [facility] Stop: 08/26/22 22:44 Last Infusion: 07/30/22 10:30 Dose: Infused Digoxin 125 mcg/ Syringe 10 mls @ 2 mls/min IV DAILY [facility] Stop: 08/28/22 08:59 Last Admin: 07/30/22 08:31 Dose: 2 mls/min Ceftriaxone Sodium 2,000 mg/ (Dextrose) 70 mls @ 140 mls/hr IV Q24H [facility] Stop: 08/11/22 17:59 Last Infusion: 07/29/22 18:24 Dose: Infused Acetaminophen (Ofirmev) 1,000 mg in 100 mls @ 400 mls/hr IV Q8H PRN PRN Reason: Pain or Fever Stop: 07/31/22 16:51 Last Infusion: 07/28/22 17:24 Dose: Infused Famotidine 20 mg/ Syringe 5 mls @ 2.5 mls/min IV Q12 TITI Stop: 08/28/22 09:14 Last Admin: 07/30/22 08:32 Dose: 2.5 mls/min Dextrose/Sodium Chloride (D5w And 1/2nss) 1,000 mls @ 50 mls/hr IV .Q20H [facility] Stop: 08/29/22 06:14 Last Admin: 07/30/22 06:29 Dose: 50 mls/hr Insulin Aspart (Insulin Aspart Per Unit) 0 units SC Q6 [facility]; Protocol Stop: 08/28/22 07:59 Last Admin: 07/30/22 11:44 Dose: Not Given Insulin Glargine (Lantus Per Unit Charge) 0 units SQ ONE ONE; Protocol Stop: 07/30/22 16:31 Lactobacillus Acidophilus (Advanced Probiotic 1250 Mg Capsule) 2 cap PO DAILY [facility] Stop: 08/27/22 08:59 Magnesium Oxide (Magnesium Oxide 400 Mg Tab) 400 mg PO QAM [facility] Stop: 08/27/22 08:59 Metoprolol Tartrate (Metoprolol Tartrate 25 Mg Tab) 25 mg PO BID [facility] Stop: 08/26/22 20:59 Last Admin: 07/27/22 19:53 Dose: Not Given Midodrine (Midodrine Hcl 2.5 Mg Tab) 2.5 mg PO TID [facility] Stop: 08/29/22 10:44 Last Admin: 07/30/22 13:49 Dose: 2.5 mg Miscellaneous (Carbohydrates For Hypoglycemia ) 15 - 30 gm PO UD PRN PRN Reason: Hypoglycemia Protocol Stop: 08/26/22 14:47 Miscellaneous (Icu Electrolyte Replacement Protocol) 1 each N/A BID@06,18 [facility]; Protocol Stop: 08/04/22 05:59 Last Admin: 07/30/22 06:21 Dose: 1 each Miscellaneous Information (Pharmacy Glycemic Mgmt Consult) 1 each N/A UD PRN PRN Reason: Consult Stop: 08/26/22 14:51 Polyethylene Glycol (Polyethylene (Miralax) 17 Gm Pack) 17 gm PO DAILY PRN PRN Reason: Constipation Stop: 08/26/22 19:43 Potassium Chloride (Potassium Chloride Crtab 20 Meq Tabcr) 20 meq PO DAILY [facility] Stop: 08/27/22 08:59 Last Admin: 07/30/22 08:32 Dose: 20 meq Potassium Chloride (Potassium Chloride Crtab 20 Meq Tabcr) 60 meq PO BID TITI Stop: 07/30/22 21:01 Last Admin: 07/30/22 11:29 Dose: 60 meq Vitamin D (Cholecalciferol 1,000 Units 25 Mcg Tab) 2,000 units PO DAILY TITI Stop: 08/27/22 08:59
[2022-07-30] MEDS ORDERED: LANTUS PER UNIT CHARGE SQ ONE (16:30)
[2022-07-30] MEDS ORDERED: Nursing to Pharmacy Communication SCH (16:30)
[2022-07-30] MEDS: cefTRIAXone SODIUM 2,000 MG in DEXTROSE 5% 50 ML IV SCH (17:19)
[2022-07-31] MEDS: D5W AND 1/2NSS 1,000 ML IV SCH (04:03)
[2022-07-31 05:08] LABS: Basophils # (auto) 0.01 K/uL (0-0.2); Basophils % (auto) 0.1 %; Eosinophils # (auto) 0.05 K/uL (0-0.50); Eosinophils % (auto) 0.6 %; Hematocrit (blood only) 27.5 % (34.1-44.9); Hemoglobin 9.4 g/dl (12.0-16.0); Immature Granulocytes # (auto) 0.06 K/uL (0.00-0.02); Immature Granulocytes % (auto) 0.7 %; Lymphocytes # (auto) 0.91 K/uL (1.2-3.4); Lymphocytes % (auto) 10.2 %; Mean Corpuscular Hemoglobin 27.2 pg (25.0-34.0); Mean Corpuscular Hgb Conc 34.2 g/dL (32.0-36.0); Mean Corpuscular Volume 79.5 fL (80.0-100.0); Mean Platelet Volume 11.1 fL (9.4-12.3); Monocytes # (auto) 0.67 K/uL (0.24-0.82); Monocytes % (auto) 7.5 %; Neutrophils # (auto) 7.25 K/uL (1.4-6.5); Neutrophils % (auto) 80.9 %; Platelet Count 44 K/uL (130-400); RDW Coefficient of Variation 15.3 % (11.5-14.5); RDW Standard Deviation 44.3 fL (36.4-46.3); Red Blood Count 3.46 M/uL (3.93-5.22); White Blood Count 8.95 K/ul (4.8-10.8)
[2022-07-31 05:33] LABS: BUN Creatinine Ratio 38.8 (10-20); Calcium 7.4 mg/dl (8.5-10.1); Creatinine Clr Calc Pharmacy 47.9 ml/min; Est GFR (African American) 72.9 ml/min; Est GFR (Non-African American) 62.9 ml/min; Magnesium 2.1 mg/dl (1.7-2.4); Phosphorus 2.9 mg/dl (2.5-4.9); Potassium 5.3 mmol/L (3.5-5.1)
[2022-07-31] MEDS ORDERED: DEXTROSE 5% 1,000 ML IV SCH (07:00)
[2022-07-31] MEDS: ICU ELECTROLYTE REPLACEMENT PROTOCOL SCH (07:00)
[2022-07-31] MEDS: VASOPRESSIN 20 UNITS in 0.9 % SODIUM CHLORIDE 100 ML IV SCH ×2 (07:01→14:53)
[2022-07-31] MEDS: FAMOTIDINE 20 MG in SYRINGE 3 ML IV SCH (08:04)
[2022-07-31] MEDS: INSULIN ASPART PER UNIT SC SCH ×4 (08:05→20:37)
[2022-07-31] MEDS: AMIODARONE 200 MG TAB PO SCH (08:06)
[2022-07-31] MEDS: ATORVASTATIN 10 MG TAB PO SCH (08:07)
[2022-07-31] MEDS: APIXABAN 5 MG TABLET PO SCH ×2 (08:07→21:26)
[2022-07-31] MEDS: MIDODRINE HCL 2.5 MG TAB PO SCH ×3 (08:07→21:25)
[2022-07-31] MEDS: POTASSIUM CHLORIDE CRTAB 20 MEQ TABCR PO SCH (08:08)
[2022-07-31] MEDS ORDERED: LANTUS PER UNIT CHARGE SQ SCH (09:00)
[2022-07-31] MEDS: DIGOXIN 125 MCG in SYRINGE 9.5 ML IV SCH (09:09)
--- NOTE | 2022-07-31 10:33 | Critical Care Progress Note ---
Date of Service July 31, 2022 Assessment & Plan (1) DKA (diabetic ketoacidosis): (2) Sepsis: (3) WEST (acute kidney injury): (4) Acute metabolic encephalopathy: (5) Elevated troponin: (6) Paroxysmal atrial fibrillation: (7) Pyelonephritis: Plan Reason Critically Ill: 82 YOF found down at home, arrived hypothermic, in DKA and septic shock from likely pyelonephritis Neuro - Metabolic Encephalopathy, resolved - She is on anticoagulation at home for her afib- -May need to reconsider anticoagulation for fall risk and home safety - NO focal deficits noted Cardiac - Shock, Afib with RVR, HTN, Elevated troponin: Resolved - midodrine hopeful to wean off as blood pressure continues to improve - AFIB with RVR- on amiodarone at home. - digoxin 125mcg daily -Level adequate at 1.1 -Restart metoprolol 25 mg daily and discontinue digoxin -Likely better medication profile Respiratory - No acute needs GI -tolerating diet -Would benefit from dentures, unclear location, patient's daughter is caregiver who lives in [place] and visits twice monthly RENAL/LYTES - AGAP Metabolic Acidosis: Resolved WEST: Resolved hypophosphatemia: Resolved -Mild hypokalemia: Supplemental potassium given -Mild hyperkalemia: Follow-up tomorrow likely secondary to repletion, making adequate urine - Pyelonephritis, UTI complicated Discontinue Kraus per nursing protocol -Could consider pure wick ENDO - DKA: Resolved - Insulin: transitioned to subcutnaeous - electrolyte management HEME - No acute needs -Long-term anticoagulation with apixaban secondary to chronic atrial fibrillation ID - Pyelonephritis, septic shock: Pansensitive Klebsiella: -Repeat cultures negative -Transition to Omnicef for 10 days effective therapy from negative blood culture which was obtained 07/29 LINES/IV ACCESS - PIV, Kraus - DNR/DNI DVT PROPHYLAXIS - SCDS, Lovenox DISPO: Stable for downgrade out of ICU Admission and Anticipated Discharge Date Admission Date: July 27, 2022 Subjective Resting comfortably. No complaints. Pocketing food with out top dentures per RN report. Had episode of tachycardia which easily resolved without intervention after taking medications Physical Exam Physical Exam: General: Alert. nontoxic. Skin: Warm, dry, Head: Atraumatic Ears, nose, mouth and throat: airway patent Cardiovascular: Normal peripheral perfusion Respiratory: no respiratory distress Gastrointestinal: Non distended Musculoskeletal: No deformity Results & Data Results & Data ([facility]) Vital Signs (Past 12 Hours) Vital Signs Temp Pulse Resp BP Pulse Ox O2 Del Method 07/31/22 08:01 102/80 07/31/22 08:01 37.4 C 141 H 22 97 07/31/22 08:00 37.4 C 146 H 22 97 07/31/22 07:14 37.4 C 116 H 22 97 07/31/22 07:14 112/55 L 07/31/22 07:00 37.4 C 125 H 22 94 07/31/22 08:00 Room Air 07/31/22 08:00 Room Air 07/31/22 08:00 128 H 07/31/22 09:09 119 H 07/31/22 06:00 37.3 C 128 H 57 H 96 07/31/22 06:00 100/62 07/31/22 05:00 37.4 C 114 H 32 H 97 07/31/22 04:01 82/67 L 07/31/22 04:01 37.4 C 120 H 31 H 96 07/31/22 04:00 37.4 C 124 H 29 H 96 07/31/22 03:00 37.5 C 121 H 36 H 95 07/31/22 02:00 37.5 C 110 H 30 H 97 07/31/22 02:00 75/53 L 07/31/22 01:00 37.4 C 104 H 38 H 97 07/31/22 00:01 99/64 L 07/31/22 00:01 37.4 C 99 H 31 H 97 07/31/22 00:00 37.4 C 124 H 34 H 97 07/30/22 23:00 37.3 C 108 H 28 H 97 07/30/22 23:51 Nasal Cannula Critical Care Results & Data Vital Signs (Past 12 Hours) Vital Signs Temp Pulse Resp BP Pulse Ox O2 Del Method 07/31/22 08:01 102/80 07/31/22 08:01 37.4 C 141 H 22 97 07/31/22 08:00 37.4 C 146 H 22 97 07/31/22 07:14 37.4 C 116 H 22 97 07/31/22 07:14 112/55 L 07/31/22 07:00 37.4 C 125 H 22 94 07/31/22 08:00 Room Air 07/31/22 08:00 Room Air 07/31/22 08:00 128 H 07/31/22 09:09 119 H 07/31/22 06:00 37.3 C 128 H 57 H 96 07/31/22 06:00 100/62 07/31/22 05:00 37.4 C 114 H 32 H 97 07/31/22 04:01 82/67 L 07/31/22 04:01 37.4 C 120 H 31 H 96 07/31/22 04:00 37.4 C 124 H 29 H 96 07/31/22 03:00 37.5 C 121 H 36 H 95 07/31/22 02:00 37.5 C 110 H 30 H 97 07/31/22 02:00 75/53 L 07/31/22 01:00 37.4 C 104 H 38 H 97 07/31/22 00:01 99/64 L 07/31/22 00:01 37.4 C 99 H 31 H 97 07/31/22 00:00 37.4 C 124 H 34 H 97 07/30/22 23:00 37.3 C 108 H 28 H 97 07/30/22 23:51 Nasal Cannula Lab & Micro Results (Past 24 Hours) RBC 3.46 M/uL (3.93-5.22) L 07/31/22 WBC 8.95 K/ul (4.8-10.8) 07/31/22 Hgb 9.4 g/dl (12.0-16.0) L 07/31/22 Hct 27.5 % (34.1-44.9) L 07/31/22 MCV 79.5 fL (80.0-100.0) L 07/31/22 MCH 27.2 pg (25.0-34.0) 07/31/22 MCHC 34.2 g/dL (32.0-36.0) 07/31/22 RDW Standard Deviation 44.3 fL (36.4-46.3) 07/31/22 RDW Coefficient of Variation 15.3 % (11.5-14.5) H 07/31/22 Plt Count 44 K/uL (130-400) L 07/31/22 MPV 11.1 fL (9.4-12.3) 07/31/22 Neutrophils (%) (Auto) 80.9 % 07/31/22 Lymphocytes (%) (Auto) 10.2 % 07/31/22 Monocytes # (Auto) 0.67 K/uL (0.24-0.82) 07/31/22 Eosinophils # (Auto) 0.05 K/uL (0-0.50) 07/31/22 Immature Granulocyte % (Auto) 0.7 % 07/31/22 Neutrophils # (Auto) 7.25 K/uL (1.4-6.5) H 07/31/22 Lymphocytes # (Auto) 0.91 K/uL (1.2-3.4) L 07/31/22 Monocytes # (Auto) 0.67 K/uL (0.24-0.82) 07/31/22 Eosinophils # (Auto) 0.05 K/uL (0-0.50) 07/31/22 Basophils # (Auto) 0.01 K/uL (0-0.2) 07/31/22 Immature Granulocyte # (Auto) 0.06 K/uL (0.00-0.02) H 07/31 Na 139 mmol/L (136-145) 07/31/22 K 5.3 mmol/L (3.5-5.1) H 07/31/22 Cl 115 mmol/L (98-107) H 07/31/22 CO2 17 mmol/L (21-32) L 07/31/22 Anion Gap 7 (3-11) 07/31/22 BUN 33 mg/dl (6-23) H 07/31/22 Creatinine 0.85 mg/dl (0.6-1.2) 07/31/22 Estimated GFR ( Amer) 72.9 ml/min 07/31/22 Estimated GFR (Non-Af Amer) 62.9 ml/min 07/31/22 BUN/Creatinine Ratio 38.8 (10-20) H 07/31/22 Glu 135 mg/dl (70-99(Fasting)) H 07/31/22 Ca 7.4 mg/dl (8.5-10.1) L 07/31/22 Phosphorus Level 2.9 mg/dl (2.5-4.9) 07/31/22 Mg 2.1 mg/dl (1.7-2.4) 07/31/22 04:53 Calcium Level 7.4 mg/dl (8.5-10.1) L 07/31/22 04:53 Microbiology 07/29/22 05:30 Aerobic Blood Culture - Preliminary Blood No growth in Aerobic bottle after 48 hours. Anaerobic Blood Culture - Final 07/29/22 05:30 Aerobic Blood Culture - Preliminary Blood No growth in Aerobic bottle after 48 hours. Anaerobic Blood Culture - Preliminary No growth in Anaerobic bottle after 48 hours. 07/27/22 14:13 Aerobic Blood Culture - Final Blood Klebsiella pneumoniae Anaerobic Blood Culture - Final 07/27/22 13:29 Aerobic Blood Culture - Final Blood Klebsiella pneumoniae Anaerobic Blood Culture - Final I & O Totals 24 Hours 07/30/22 07/31/22 08/01/22 06:59 06:59 06:59 Intake Total 1685.908 / 1538.834 5501.000 / 1856.000 500.833 / 500.833 Output Total 1208 / 1208 2928 / 2928 275 / 275 Balance 477.908 / 477.908 -1072.000 / -1072.000 225.833 / 225.833 Cumulative 07/27/22 12:45 thru 07/31/22 10:11 Intake Total 73904.077 Output Total 6275 Balance 00830.077 RT Ventilator Mngmt (Last Documented) Ventilator Ordered Settings Respiratory Rate 22 07/31/22 08:01 Fraction of Inspired Oxygen 45 07/27/22 13:19 Ventilator - PT Measurements Respiratory Rate 22 Coding Level of Care Code 23357 Subseq [facility] 3 Diagnoses DKA (diabetic ketoacidosis) E13.11 Diabetes mellitus complication detail: with coma Diabetes mellitus type: other specified (including ROSIO) Sepsis A41.9; R65.20; N17.9 Acute renal failure type: unspecified Sepsis acute organ dysfunction status: with acute organ dysfunction Sepsis type: sepsis due to unspecified organism Severe sepsis acute organ dysfunction type: acute renal failure Severe sepsis shock status: unspecified WEST (acute kidney injury) N17.9 Acute metabolic encephalopathy G93.41 Elevated troponin R77.8 Paroxysmal atrial fibrillation I48.0 Pyelonephritis N12 (1) DKA (diabetic ketoacidosis) Diabetes mellitus complication detail: with coma Diabetes mellitus type: other specified (including ROSIO) Qualified Code(s): E13.11 - Other specified diabetes mellitus with ketoacidosis with coma (2) Sepsis Acute renal failure type: unspecified Sepsis acute organ dysfunction status: with acute organ dysfunction Sepsis type: sepsis due to unspecified organism Severe sepsis acute organ dysfunction type: acute renal failure Severe sepsis shock status: unspecified Qualified Code(s): A41.9 - Sepsis, unspecified organism; R65.20 - Severe sepsis without septic shock; N17.9 - Acute kidney f ailure, unspecified
--- NOTE | 2022-07-31 13:16 | Hospitalist Progress Note ---
Date of Service July 31, 2022 Assessment & Plan (1) Septic shock: Plan: Resuscitated off pressor support. Continues on maintenance fluids. (2) Acute metabolic encephalopathy: Plan: This is an 82-year-old female with PMH DM II, paroxysmal atrial fibrillation on Eliquis, HLD, depression and other medical problems listed below who presents to the ER after being found unresponsive at home and was found to have acute metabolic encephalopathy in setting of septic shock and metabolic acidosis 2/2 DKA. Multifactorial given septic shock 2/2 pyelo with gram negative bacteremia and DKA Continue IV fluid resuscitation, antibiotics, rewarming CT head without acute intracranial abnormalities now off pressors and transitioned to PCU Continues on cefdinir Midodrine TID starting for hemodynamic support while in the ICU; will stop tomorrow. (3) DKA (diabetic ketoacidosis): Plan: HAGMA 2/2 DKA in setting of elevated lactate from sepsis. Improved with current treatment Now off insulin drip and on subcutaneous therapy. She is eating. Cont basal/bolus insulin. (4) Complicated UTI (urinary tract infection): Plan: Hypotensive, hypothermic. septic shock CT abd/pelvis with asymmetric right-sided perinephric stranding/inflammation with tiny foci of nonspecific gas within the right renal pelvis. Correlate clinically and with urinalysis for evidence of right-sided pyelonephritis Continue ceftriaxone. Kraus in place with improvement in UOP today. (5) Gram-negative bacteremia: Plan: cont abx as above. (6) Hypothermia: Plan: Initial temp 30.3 C, chino hugger in place, currently normothermic. (7) Elevated creatine kinase level: Plan: 2/2 sepsis and critical illness, cont current management. (8) Elevated troponin: Plan: Likely 2/2 demand ischemia in sepsis. No evidence of ACS or acute ischemia on EKG and echo with no acute wall motion abnormalities. severe calcification is present at the aortic valve. Also, troponin peaked and is trending down. (9) WEST (acute kidney injury): Plan: In setting of severe dehydration, infection, DKA. Resolved after IV fluid resuscitation and her urine output has improved. (10) Diabetes mellitus, type 2: Plan: Initially managed for DKA as above. A1c reflects poor control. She is not yet eating and continues on subcutaneous insulin at this time. home health billing specialist to see her when she is more awake. (11) Thrombocytopenia: Plan: Low but improved likely related to consumption from sepsis. Improvement is reflective of overall recovery (12) Paroxysmal atrial fibrillation: Plan: Home regimen includes amiodarone, Lopressor and Eliquis for anticoagulation DVT Ppx: SCDs, Eliquis Code status: DNR/DNI PCP: Genna Benites Dispo:transferred to PCU today. final dispo pending PT/OT recommendations. Felicia Diaz [facility] Ad[facility] and Anticipated Discharge Date Admission Date: July 27, 2022 Subjective Resting comfortably. No complaints. Still very tired. Reports that she was eating but truly hasn't done much today. Denies pain Review of Systems Review of Systems: As above, and unable to obtain secondary to somnolence. Physical Exam Physical Exam: CONSTITUTIONAL: WNWD, vitals as above, ill appearing, elderly, appears more comfortable and not in acute distress. Fatigued. EYES: normal conjunctivae, no scleral icterus ENT: external ear and nose normal, MMM NECK: trachea midline RESPIRATORY: clear to auscultation bilaterally, no crackles, rales or wheezes, increased respiratory effort. CARDIOVASCULAR: tachy rate and regular rhythm, S1 and 2 heard without murmurs, gallops or rubs, no peripheral edema CHEST: inspection of chest was normal GASTROINTESTINAL: soft, nondistended, no guarding. MUSCULOSKELETAL: she is able to raise her arms bilaterally without much help but otherwise still very fatigued and not moving much SKIN: warm and dry NEUROLOGIC: cannot assess 2/2 confusion but appears generally nonfocal. somnolent Results & Data Results & Data ([facility]) Vital Signs (Past 12 Hours) Vital Signs Temp Pulse Resp BP Pulse Ox O2 Del Method 07/31/22 12:01 117/74 07/31/22 12:01 37.6 C H 78 19 97 07/31/22 12:00 37.6 C H 80 33 H 100 07/31/22 11:00 37.7 C H 120 H 30 H 97 07/31/22 11:00 102/66 07/31/22 10:00 37.6 C H 122 H 27 H 96 07/31/22 10:00 88/75 L 07/31/22 09:05 92/76 L 07/31/22 09:05 37.5 C 123 H 34 H 98 07/31/22 09:01 87/63 L 07/31/22 09:01 37.5 C 131 H 30 H 96 07/31/22 09:00 37.5 C 138 H 29 H 98 07/31/22 08:01 102/80 07/31/22 08:01 37.4 C 141 H 22 97 07/31/22 08:00 37.4 C 146 H 22 97 07/31/22 07:14 37.4 C 116 H 22 97 07/31/22 07:14 112/55 L 07/31/22 07:00 37.4 C 125 H 22 94 07/31/22 08:00 Room Air 07/31/22 08:00 Room Air 07/31/22 08:00 128 H 07/31/22 09:09 119 H 07/31/22 06:00 37.3 C 128 H 57 H 96 07/31/22 06:00 100/62 07/31/22 05:00 37.4 C 114 H 32 H 97 07/31/22 04:01 82/67 L 07/31/22 04:01 37.4 C 120 H 31 H 96 07/31/22 04:00 37.4 C 124 H 29 H 96 07/31/22 03:00 37.5 C 121 H 36 H 95 07/31/22 02:00 37.5 C 110 H 30 H 97 07/31/22 02:00 75/53 L Laboratory Results Short CBC 07/31/22 Range/Units 04:53 WBC 8.95 (4.8-10.8) K/ul Hgb 9.4 L (12.0-16.0) g/dl Hct 27.5 L (34.1-44.9) % Plt Count 44 L (130-400) K/uL BMP 07/31/22 04:53 Sodium 139 Potassium 5.3 H D Chloride 115 H Carbon Dioxide 17 L BUN 33 H Creatinine 0.85 Glucose 135 H Calcium 7.4 L Medications Administered Current Inpatient Medications Acetaminophen (Acetaminophen 325 Mg Tab) 650 mg PO Q4H PRN PRN Reason: pain/fever Stop: 08/30/22 10:46 Amiodarone HCl (Amiodarone 200 Mg Tab) 100 mg PO DAILY TITI Stop: 08/27/22 08:59 Last Admin: 07/31/22 08:06 Dose: 100 mg Apixaban (Apixaban 5 Mg Tablet) 5 mg PO BID [facility] Stop: 08/26/22 20:59 Last Admin: 07/31/22 08:07 Dose: 5 mg Atorvastatin Calcium (Atorvastatin 10 Mg Tab) 10 mg PO DAILY [facility] Stop: 08/27/22 08:59 Last Admin: 07/31/22 08:07 Dose: 10 mg Cefdinir (Cefdinir 300 Mg Cap) 300 mg PO BID [facility] Stop: 08/09/22 20:59 Dextrose (Dextrose 50% 50 Ml Syringe) 25 - 50 ml IV UD PRN; Protocol PRN Reason: Hypoglycemia Protocol Stop: 08/26/22 14:47 Last Admin: 07/30/22 06:14 Dose: 25 ml Diclofenac Sodium (Diclofenac Sod 1% Gel 100 Gm Tube) 1 gm EXT BID PRN; Protocol PRN Reason: Pain Stop: 08/26/22 19:43 Docusate Sodium (Docusate Sodium 100 Mg Cap) 100 mg PO BID PRN PRN Reason: Constipation Stop: 08/26/22 19:43 Glucagon (Glucagon For Inj 1 Mg Vial) 1 mg SQ UD PRN; Protocol PRN Reason: Hypoglycemia Protocol Stop: 08/26/22 14:47 Glucose (Glucose 40% Gel 15 Gm Tube) 15 - 30 gm PO UD PRN; Protocol PRN Reason: Hypoglycemia Protocol Stop: 08/26/22 14:47 Glucose (Glucose 10 Tab/Tube) 4 - 8 tab PO UD PRN; Protocol PRN Reason: Hypoglycemia Treatment Stop: 08/26/22 14:47 Insulin Aspart (Insulin Aspart Per Unit) 0 units SC [facility]; Protocol Stop: 08/29/22 11:59 Last Admin: 07/31/22 13:08 Dose: 6 units Lactobacillus Acidophilus (Advanced Probiotic 1250 Mg Capsule) 2 cap PO DAILY [facility] Stop: 08/27/22 08:59 Magnesium Oxide (Magnesium Oxide 400 Mg Tab) 400 mg PO QAM [facility] Stop: 08/27/22 08:59 Metoprolol Tartrate (Metoprolol Tartrate 25 Mg Tab) 25 mg PO BID [facility] Stop: 08/26/22 20:59 Last Admin: 07/27/22 19:53 Dose: Not Given Midodrine (Midodrine Hcl 2.5 Mg Tab) 2.5 mg PO TID [facility] Stop: 08/29/22 10:44 Last Admin: 07/31/22 08:07 Dose: 2.5 mg Miscellaneous (Carbohydrates For Hypoglycemia ) 15 - 30 gm PO UD PRN PRN Reason: Hypoglycemia Protocol Stop: 08/26/22 14:47 Polyethylene Glycol (Polyethylene (Miralax) 17 Gm Pack) 17 gm PO DAILY PRN PRN Reason: Constipation Stop: 08/26/22 19:43 Potassium Chloride (Potassium Chloride Crtab 20 Meq Tabcr) 20 meq PO DAILY TITI Stop: 08/27/22 08:59 Last Admin: 07/31/22 08:08 Dose: Not Given Vitamin D (Cholecalciferol 1,000 Units 25 Mcg Tab) 2,000 units PO DAILY TITI Stop: 08/27/22 08:59
--- NOTE | 2022-07-31 14:53 | Electrocardiogram Report ---
Test Reason : Blood Pressure : / mmHG Vent. Rate : 157 BPM Atrial Rate : 147 BPM P-R Int : 000 ms QRS Dur : 012 ms QT Int : 258 ms P-R-T Axes : 000 000 038 degrees QTc Int : 417 ms Poor data quality, interpretation may be adversely affected Atrial fibrillation with rapid ventricular response with premature ventricular or aberrantly conducte d complexes Indeterminate axis Abnormal ECG When compared with ECG of 31-JUL-2022 07:05, (unconfirmed) Previous ECG has undetermined rhythm, needs review Questionable change in QRS duration Confirmed by Milton Newman ([id number]) on 07/31/2022 2:53:27 PM Referred By: REFERRED SELF Confirmed By:Milton Newman
--- NOTE | 2022-07-31 14:53 | Electrocardiogram Report ---
Test Reason : Blood Pressure : / mmHG Vent. 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
[2022-07-31] MEDS: CEFDINIR 300 MG CAP PO SCH (21:25)
[2022-07-31] MEDS: METOPROLOL TARTRATE 25 MG TAB PO SCH (21:26)
[2022-08-01 07:00] LABS: Hematocrit (blood only) 26.4 % (34.1-44.9); Hemoglobin 8.7 g/dl (12.0-16.0); Mean Corpuscular Hemoglobin 27.4 pg (25.0-34.0); Mean Platelet Volume 11.8 fL (9.4-12.3); Platelet Count 76 K/uL (130-400); RDW Coefficient of Variation 15.5 % (11.5-14.5); RDW Standard Deviation 46.9 fL (36.4-46.3); Red Blood Count 3.18 M/uL (3.93-5.22); White Blood Count 6.72 K/ul (4.8-10.8)
[2022-08-01 07:32] LABS: BUN Creatinine Ratio 28.6 (10-20); Calcium 7.2 mg/dl (8.5-10.1); Creatinine Clr Calc Pharmacy 41.4 ml/min; Est GFR (African American) 61.4 ml/min
[2022-08-01] MEDS: INSULIN ASPART PER UNIT SC SCH ×4 (07:38→21:32)
[2022-08-01] MEDS: ATORVASTATIN 10 MG TAB PO SCH (08:55)
[2022-08-01] MEDS: CHOLECALCIFEROL 1,000 UNITS 25 MCG TAB PO SCH (08:55)
[2022-08-01] MEDS: AMIODARONE 200 MG TAB PO SCH (08:55)
[2022-08-01] MEDS: APIXABAN 5 MG TABLET PO SCH ×2 (08:55→21:38)
[2022-08-01] MEDS: CEFDINIR 300 MG CAP PO SCH ×2 (08:55→21:38)
[2022-08-01] MEDS: MAGNESIUM OXIDE 400 MG TAB PO SCH (08:56)
[2022-08-01] MEDS: POTASSIUM CHLORIDE CRTAB 20 MEQ TABCR PO SCH (08:56)
[2022-08-01] MEDS: MIDODRINE HCL 2.5 MG TAB PO SCH (08:56)
[2022-08-01] MEDS: METOPROLOL TARTRATE 25 MG TAB PO SCH ×2 (08:56→21:38)
--- NOTE | 2022-08-01 12:06 | Hospitalist Progress Note ---
Date of Service August 01, 2022 Assessment & Plan (1) Septic shock: Plan: Resuscitated off pressor support. Continues on maintenance fluids. (2) Acute metabolic encephalopathy: Plan: This is an 82-year-old female with PMH DM II, paroxysmal atrial fibrillation on Eliquis, HLD, depression and other medical problems listed below who presents to the ER after being found unresponsive at home and was found to have acute metabolic encephalopathy in setting of septic shock and metabolic acidosis 2/2 DKA. Multifactorial given septic shock 2/2 pyelo with gram negative bacteremia and DKA Continue IV fluid resuscitation, antibiotics, rewarming was required CT head without acute intracranial abnormalities now off pressors and transitioned to PCU Continues on cefdinir for Klebsiella bacteremia likely 2/2 urine source. Midodrine TID starting for hemodynamic support while in the ICU; will stop today as pressure has normalized. (3) DKA (diabetic ketoacidosis): Plan: HAGMA 2/2 DKA in setting of elevated lactate from sepsis. Improved with current treatment Now off insulin drip and on subcutaneous therapy. She is eating. Cont basal/bolus insulin. Speech path consulted for some pocketing noted over the past two days. (4) Complicated UTI (urinary tract infection): Plan: Hypotensive, hypothermic. septic shock CT abd/pelvis with asymmetric right-sided perinephric stranding/inflammation with tiny foci of nonspecific gas within the right renal pelvis. Correlate clinically and with urinalysis for evidence of right-sided pyelonephritis Continue current abx Kraus in place with good urine output. Will remove once she is moving around more. (5) Gram-negative bacteremia: Plan: Klebsiella with repeat blood cultures showing this was cleared. Cont abx as above for total 14 days. (6) Hypothermia: Plan: 2/2 septic shock, resolved. Normothermic. (7) Elevated creatine kinase level: Plan: 2/2 sepsis and critical illness, no further workup. (8) Elevated troponin: Plan: Likely 2/2 demand ischemia in sepsis. No evidence of ACS or acute ischemia on EKG and echo with no acute wall motion abnormalities. severe calcification is present at the aortic valve. Also, troponin peaked and is trending down. (9) WEST (acute kidney injury): Plan: In setting of severe dehydration, infection, DKA. Resolved after IV fluid resuscitation and her urine output has improved. (10) Diabetes mellitus, type 2: Plan: Initially managed for DKA as above. A1c reflects poor control. She is not yet eating and continues on subcutaneous insulin at this time. public health educator to see her when she is more awake. (11) Thrombocytopenia: Plan: Low but improved likely related to consumption from sepsis. Improvement is reflective of overall recovery, cont to monitor. Currently 77K (12) Paroxysmal atrial fibrillation: Plan: Now converted to sinus rhythm. Home regimen includes amiodarone, Lopressor and Eliquis for anticoagulation DVT Ppx: SCDs, Eliquis Code status: DNR/DNI PCP: Genna Benites Dispo:transferred to PCU today. final dispo pending PT/OT recommendations. LM for daughter to call me so I can give her an update Felicia Diaz DO [place] Hospitalist Admission and Anticipated Discharge Date Admission Date: July 27, 2022 Subjective Resting comfortably. No complaints. Still very tired. Reports that she was eating but truly hasn't done much today. Denies pain Checked with RN about her food intake. REports some self feeding and doing well on full liquids but some pocketing. Will consult speech path. Review of Systems Review of Systems: All systems were reviewed and negative except as indicated above. Physical Exam Physical Exam: CONSTITUTIONAL: WNWD, vitals as above, ill appearing, elderly, appears more comfortable and not in acute distress. Fatigued. EYES: normal conjunctivae, no scleral icterus ENT: external ear and nose normal, MMM NECK: trachea midline RESPIRATORY: clear to auscultation bilaterally, no crackles, rales or wheezes, increased respiratory effort. CARDIOVASCULAR: reg rate and regular rhythm, S1 and 2 heard without murmurs, gallops or rubs, no peripheral edema CHEST: inspection of chest was normal GASTROINTESTINAL: soft, nondistended, no guarding. MUSCULOSKELETAL: she is able to raise her arms bilaterally without much help but otherwise still very fatigued and not moving much, cannot sit up independently. SKIN: warm and dry NEUROLOGIC: appears nonfocal, slightly brighter, but still very somnolent. Results & Data Results & Data ([facility]) Vital Signs (Past 12 Hours) Vital Signs Temp Pulse Pulse Resp BP Pulse Ox O2 Del Method 08/01/22 11:00 36.8 C 75 18 140/65 96 Room Air 08/01/22 07:33 36.8 C 68 24 112/58 L 95 Room Air 08/01/22 03:02 36.8 C 66 19 109/48 L 92 Room Air Laboratory Results Short CBC 08/01/22 Range/Units 05:38 WBC 6.72 (4.8-10.8) K/ul Hgb 8.7 L (12.0-16.0) g/dl Hct 26.4 L (34.1-44.9) % Plt Count 76 L D (130-400) K/uL BMP 08/01/22 05:38 Sodium 139 Potassium 5.0 Chloride 114 H Carbon Dioxide 21 BUN 28 H Creatinine 0.98 Glucose 121 H Calcium 7.2 L Medications Administered Current Inpatient Medications Acetaminophen (Acetaminophen 325 Mg Tab) 650 mg PO Q4H PRN PRN Reason: pain/fever Stop: 08/30/22 10:46 Amiodarone HCl (Amiodarone 200 Mg Tab) 100 mg PO DAILY TITI Stop: 08/27/22 08:59 Last Admin: 08/01/22 08:55 Dose: 100 mg Apixaban (Apixaban 5 Mg Tablet) 5 mg PO BID TITI Stop: 08/26/22 20:59 Last Admin: 08/01/22 08:55 Dose: 5 mg Atorvastatin Calcium (Atorvastatin 10 Mg Tab) 10 mg PO DAILY TITI Stop: 08/27/22 08:59 Last Admin: 08/01/22 08:55 Dose: 10 mg Cefdinir (Cefdinir 300 Mg Cap) 300 mg PO BID TITI Stop: 08/09/22 20:59 Last Admin: 08/01/22 08:55 Dose: 300 mg Dextrose (Dextrose 50% 50 Ml Syringe) 25 - 50 ml IV UD PRN; Protocol PRN Reason: Hypoglycemia Protocol Stop: 08/26/22 14:47 Last Admin: 07/30/22 06:14 Dose: 25 ml Diclofenac Sodium (Diclofenac Sod 1% Gel 100 Gm Tube) 1 gm EXT BID PRN; Protocol PRN Reason: Pain Stop: 08/26/22 19:43 Docusate Sodium (Docusate Sodium 100 Mg Cap) 100 mg PO BID PRN PRN Reason: Constipation Stop: 08/26/22 19:43 Glucagon (Glucagon For Inj 1 Mg Vial) 1 mg SQ UD PRN; Protocol PRN Reason: Hypoglycemia Protocol Stop: 08/26/22 14:47 Glucose (Glucose 40% Gel 15 Gm Tube) 15 - 30 gm PO UD PRN; Protocol PRN Reason: Hypoglycemia Protocol Stop: 08/26/22 14:47 Glucose (Glucose 10 Tab/Tube) 4 - 8 tab PO UD PRN; Protocol PRN Reason: Hypoglycemia Treatment Stop: 08/26/22 14:47 Insulin Aspart (Insulin Aspart Per Unit) 0 units SC ACHS [facility]; Protocol Stop: 08/29/22 11:59 Last Admin: 08/01/22 07:38 Dose: Not Given Lactobacillus Acidophilus (Advanced Probiotic 1250 Mg Capsule) 2 cap PO DAILY [facility] Stop: 08/27/22 08:59 Magnesium Oxide (Magnesium Oxide 400 Mg Tab) 400 mg PO QAM [facility] Stop: 08/27/22 08:59 Last Admin: 08/01/22 08:56 Dose: 400 mg Metoprolol Tartrate (Metoprolol Tartrate 25 Mg Tab) 25 mg PO BID [facility] Stop: 08/26/22 20:59 Last Admin: 08/01/22 08:56 Dose: 25 mg Midodrine (Midodrine Hcl 2.5 Mg Tab) 2.5 mg PO TID [facility] Stop: 08/29/22 10:44 Last Admin: 08/01/22 08:56 Dose: 2.5 mg Miscellaneous (Carbohydrates For Hypoglycemia ) 15 - 30 gm PO UD PRN PRN Reason: Hypoglycemia Protocol Stop: 08/26/22 14:47 Polyethylene Glycol (Polyethylene (Miralax) 17 Gm Pack) 17 gm PO DAILY PRN PRN Reason: Constipation Stop: 08/26/22 19:43 Potassium Chloride (Potassium Chloride Crtab 20 Meq Tabcr) 20 meq PO DAILY TITI Stop: 08/27/22 08:59 Last Admin: 08/01/22 08:56 Dose: 20 meq Vitamin D (Cholecalciferol 1,000 Units 25 Mcg Tab) 2,000 units PO DAILY TITI Stop: 08/27/22 08:59 Last Admin: 08/01/22 08:55 Dose: 2,000 units
[2022-08-02 06:18] LABS: Hematocrit (blood only) 26.5 % (34.1-44.9); Hemoglobin 8.5 g/dl (12.0-16.0); Mean Corpuscular Hemoglobin 27.1 pg (25.0-34.0); Mean Corpuscular Hgb Conc 32.1 g/dL (32.0-36.0); Mean Corpuscular Volume 84.4 fL (80.0-100.0); Mean Platelet Volume 11.4 fL (9.4-12.3); Platelet Count 123 K/uL (130-400); RDW Coefficient of Variation 15.7 % (11.5-14.5); RDW Standard Deviation 47.9 fL (36.4-46.3); Red Blood Count 3.14 M/uL (3.93-5.22); White Blood Count 5.75 K/ul (4.8-10.8)
[2022-08-02 07:05] LABS: BUN Creatinine Ratio 24.7 (10-20); Calcium 7.3 mg/dl (8.5-10.1); Creatinine Clr Calc Pharmacy 43.7 ml/min; Est GFR (African American) 65.4 ml/min; Est GFR (Non-African American) 56.4 ml/min; Magnesium 1.9 mg/dl (1.7-2.4); Phosphorus 3.4 mg/dl (2.5-4.9); Potassium 4.9 mmol/L (3.5-5.1)
[2022-08-02] MEDS: INSULIN ASPART PER UNIT SC SCH ×4 (09:32→20:29)
[2022-08-02] MEDS: CEFDINIR 300 MG CAP PO SCH ×2 (09:33→19:52)
[2022-08-02] MEDS: METOPROLOL TARTRATE 25 MG TAB PO SCH ×2 (09:33→19:52)
[2022-08-02] MEDS: CHOLECALCIFEROL 1,000 UNITS 25 MCG TAB PO SCH (09:33)
[2022-08-02] MEDS: AMIODARONE 200 MG TAB PO SCH (09:33)
[2022-08-02] MEDS: ATORVASTATIN 10 MG TAB PO SCH (09:33)
[2022-08-02] MEDS: POTASSIUM CHLORIDE CRTAB 20 MEQ TABCR PO SCH (09:38)
[2022-08-02] MEDS: MAGNESIUM OXIDE 400 MG TAB PO SCH (09:38)
[2022-08-02] MEDS: APIXABAN 5 MG TABLET PO SCH ×2 (10:30→19:51)
--- NOTE | 2022-08-02 10:59 | Hospitalist Progress Note ---
Date of Service August 02, 2022 Assessment & Plan (1) Septic shock: Plan: Resuscitated off pressor support. Continues on maintenance fluids. (2) Acute metabolic encephalopathy: Plan: This is an 82-year-old female with PMH DM II, paroxysmal atrial fibrillation on Eliquis, HLD, depression and other medical problems listed below who presents to the ER after being found unresponsive at home and was found to have acute metabolic encephalopathy in setting of septic shock and metabolic acidosis 2/2 DKA. Multifactorial given septic shock 2/2 pyelo with gram negative bacteremia and DKA Continue IV fluid resuscitation, antibiotics, rewarming was required CT head without acute intracranial abnormalities now off pressors and transitioned to PCU Continues on cefdinir for Klebsiella bacteremia likely 2/2 urine source. Midodrine TID starting for hemodynamic support while in the ICU; BP is stable and this has been stopped on 08/01/22. Remains HD stabe, downgrade to medical (3) DKA (diabetic ketoacidosis): Plan: HAGMA 2/2 DKA in setting of elevated lactate from sepsis. Improved with current treatment Now off insulin drip and on subcutaneous therapy. She is eating. Cont basal/bolus insulin. Speech path consulted for some pocketing noted over the past two days. (4) Complicated UTI (urinary tract infection): Plan: Hypotensive, hypothermic. septic shock CT abd/pelvis with asymmetric right-sided perinephric stranding/inflammation with tiny foci of nonspecific gas within the right renal pelvis. Correlate clinically and with urinalysis for evidence of right-sided pyelonephritis Continue current abx Cai in place with good urine output. Remove cai at this time. (5) Gram-negative bacteremia: Plan: Klebsiella with repeat blood cultures showing this was cleared. Cont abx as above for total 14 days. (6) Hypothermia: Plan: 2/2 septic shock, resolved. Normothermic. (7) Elevated creatine kinase level: Plan: 2/2 sepsis and critical illness, no further workup. (8) Elevated troponin: Plan: Likely 2/2 demand ischemia in sepsis. No evidence of ACS or acute ischemia on EKG and echo with no acute wall motion abnormalities. severe calcification is present at the aortic valve. Also, troponin peaked. No further workup at this time. (9) WEST (acute kidney injury): Plan: In setting of severe dehydration, infection, DKA. Resolved after IV fluid resuscitation and her urine output has improved. (10) Diabetes mellitus, type 2: Plan: Initially managed for DKA as above. A1c reflects poor control. She is not yet eating and continues on subcutaneous insulin at this time. ict educator to see (11) Thrombocytopenia: Plan: Low but improved likely related to consumption from sepsis. Improvement is reflective of overall recovery, cont to monitor. Currently >100K (12) Paroxysmal atrial fibrillation: Plan: Now converted to sinus rhythm. Home regimen includes amiodarone, Lopressor and Eliquis for anticoagulation DVT Ppx: SCDs, Eliquis Code status: DNR/DNI PCP: Genna Benites Dispo: will transfer her [facility] focus on physical recovery/movement. Felicia Diaz DO [employer] Hospitalist Admission and Anticipated Discharge Date Admission Date: July 27, 2022 Subjective Resting comfortably. No complaints except that she needs to have a BM Denies pain Spoke with RN--she is still pocketing food OT to work with her today Cai rodrigo BP is stable Updated her daughter by phone yesterday. Review of Systems Review of Systems: All systems were reviewed and negative except as indicated above. Physical Exam Physical Exam: CONSTITUTIONAL: WNWD, vitals as above, ill appearing, elderly, appears more comfortable and not in acute distress. Appears brighter today and was holding her own cup and drinking water. EYES: normal conjunctivae, no scleral icterus ENT: external ear and nose normal, MMM NECK: trachea midline RESPIRATORY: clear to auscultation bilaterally, no crackles, rales or wheezes, increased respiratory effort. CARDIOVASCULAR: reg rate and regular rhythm, S1 and 2 heard without murmurs, gallops or rubs, no peripheral edema CHEST: inspection of chest was normal GASTROINTESTINAL: soft, nondistended, no guarding. MUSCULOSKELETAL: she is better able to sit up independently today. Generally very weak. SKIN: warm and dry NEUROLOGIC: appears nonfocal, slightly brighter, oriented. Results & Data Results & Data ([facility]) Vital Signs (Past 12 Hours) Vital Signs Temp Pulse Pulse Resp BP Pulse Ox O2 Del Method 08/02/22 10:47 36.6 C 78 26 H 110/55 L 96 Room Air 08/02/22 09:27 37.6 C H 98 H 20 118/60 93 Room Air 08/02/22 07:29 65 08/02/22 04:17 36.7 C 70 18 122/73 95 Room Air 08/02/22 00:15 36.8 C 63 18 117/69 95 Room Air Laboratory Results Short CBC 08/02/22 Range/Units 05:27 WBC 5.75 (4.8-10.8) K/ul Hgb 8.5 L (12.0-16.0) g/dl Hct 26.5 L (34.1-44.9) % Plt Count 123 L D (130-400) K/uL BMP 08/02/22 05:27 Sodium 139 Potassium 4.9 Chloride 112 H Carbon Dioxide 21 BUN 23 Creatinine 0.93 Glucose 188 H Calcium 7.3 L Medications Administered Current Inpatient Medications Acetaminophen (Acetaminophen 325 Mg Tab) 650 mg PO Q4H PRN PRN Reason: pain/fever Stop: 08/30/22 10:46 Amiodarone HCl (Amiodarone 200 Mg Tab) 100 mg PO DAILY TITI Stop: 08/27/22 08:59 Last Admin: 08/02/22 09:33 Dose: 100 mg Apixaban (Apixaban 5 Mg Tablet) 5 mg PO BID TITI Stop: 08/26/22 20:59 Last Admin: 08/02/22 10:30 Dose: 5 mg Atorvastatin Calcium (Atorvastatin 10 Mg Tab) 10 mg PO DAILY TITI Stop: 08/27/22 08:59 Last Admin: 08/02/22 09:33 Dose: 10 mg Cefdinir (Cefdinir 300 Mg Cap) 300 mg PO BID TITI Stop: 08/09/22 20:59 Last Admin: 08/02/22 09:33 Dose: 300 mg Dextrose (Dextrose 50% 50 Ml Syringe) 25 - 50 ml IV UD PRN; Protocol PRN Reason: Hypoglycemia Protocol Stop: 08/26/22 14:47 Last Admin: 07/30/22 06:14 Dose: 25 ml Diclofenac Sodium (Diclofenac Sod 1% Gel 100 Gm Tube) 1 gm EXT BID PRN; Protocol PRN Reason: Pain Stop: 08/26/22 19:43 Docusate Sodium (Docusate Sodium 100 Mg Cap) 100 mg PO BID PRN PRN Reason: Constipation Stop: 08/26/22 19:43 Glucagon (Glucagon For Inj 1 Mg Vial) 1 mg SQ UD PRN; Protocol PRN Reason: Hypoglycemia Protocol Stop: 08/26/22 14:47 Glucose (Glucose 40% Gel 15 Gm Tube) 15 - 30 gm PO UD PRN; Protocol PRN Reason: Hypoglycemia Protocol Stop: 08/26/22 14:47 Glucose (Glucose 10 Tab/Tube) 4 - 8 tab PO UD PRN; Protocol PRN Reason: Hypoglycemia Treatment Stop: 08/26/22 14:47 Insulin Aspart (Insulin Aspart Per Unit) 0 units SC ACHS [facility]; Protocol Stop: 08/29/22 11:59 Last Admin: 08/02/22 09:32 Dose: 8 units Lactobacillus Acidophilus (Advanced Probiotic 1250 Mg Capsule) 2 cap PO DAILY [facility] Stop: 08/27/22 08:59 Magnesium Oxide (Magnesium Oxide 400 Mg Tab) 400 mg PO QAM [facility] Stop: 08/27/22 08:59 Last Admin: 08/02/22 09:38 Dose: 400 mg Metoprolol Tartrate (Metoprolol Tartrate 25 Mg Tab) 25 mg PO BID TITI Stop: 08/26/22 20:59 Last Admin: 08/02/22 09:33 Dose: 25 mg Miscellaneous (Carbohydrates For Hypoglycemia ) 15 - 30 gm PO UD PRN PRN Reason: Hypoglycemia Protocol Stop: 08/26/22 14:47 Polyethylene Glycol (Polyethylene (Miralax) 17 Gm Pack) 17 gm PO DAILY PRN PRN Reason: Constipation Stop: 08/26/22 19:43 Potassium Chloride (Potassium Chloride Crtab 20 Meq Tabcr) 20 meq PO DAILY TITI Stop: 08/27/22 08:59 Last Admin: 08/02/22 09:38 Dose: 20 meq Vitamin D (Cholecalciferol 1,000 Units 25 Mcg Tab) 2,000 units PO DAILY TITI Stop: 08/27/22 08:59 Last Admin: 08/02/22 09:33 Dose: 2,000 units
[2022-08-02] MEDS: LANTUS PER UNIT CHARGE SQ SCH ×2 (12:37→20:27)
[2022-08-02] MEDS: DICLOFENAC SOD 1% GEL 100 GM TUBE EXT PRN ×2 (16:40→19:52)
[2022-08-03] MEDS: CEFDINIR 300 MG CAP PO SCH ×2 (08:58→21:24)
[2022-08-03] MEDS: APIXABAN 5 MG TABLET PO SCH ×2 (08:58→21:24)
[2022-08-03] MEDS: ADVANCED PROBIOTIC 1250 MG CAPSULE PO SCH (08:58)
[2022-08-03] MEDS: CHOLECALCIFEROL 1,000 UNITS 25 MCG TAB PO SCH (08:59)
[2022-08-03] MEDS: ATORVASTATIN 10 MG TAB PO SCH (08:59)
[2022-08-03] MEDS: POTASSIUM CHLORIDE CRTAB 20 MEQ TABCR PO SCH (09:09)
[2022-08-03] MEDS: LANTUS PER UNIT CHARGE SQ SCH ×2 (09:15→21:24)
[2022-08-03] MEDS: INSULIN ASPART PER UNIT SC SCH ×4 (09:16→20:49)
[2022-08-03] MEDS: METOPROLOL TARTRATE 25 MG TAB PO SCH ×2 (09:18→21:24)
[2022-08-03] MEDS: AMIODARONE 200 MG TAB PO SCH (09:41)
[2022-08-03] MEDS: MAGNESIUM OXIDE 400 MG TAB PO SCH (09:41)
--- NOTE | 2022-08-03 14:46 | Hospitalist Progress Note ---
Date of Service August 03, 2022 Assessment & Plan (1) Septic shock: Plan: Resuscitated off pressor support. Continues on antibiotic therapy. (2) Acute metabolic encephalopathy: Plan: This is an 82-year-old female with PMH DM II, paroxysmal atrial fibrillation on Eliquis, HLD, depression and other medical problems listed below who presents to the ER after being found unresponsive at home and was found to have acute metabolic encephalopathy in setting of septic shock and metabolic acidosis 2/2 DKA. ANTONIA resolved-Multifactorial given septic shock 2/2 pyelo with gram negative bacteremia and DKA Continue IV fluid resuscitation, antibiotics, rewarming was required CT head without acute intracranial abnormalities now off pressors and transitioned to PCU Continues on cefdinir for Klebsiella bacteremia likely 2/2 urine source. Midodrine TID starting for hemodynamic support while in the ICU; BP is stable and this has been stopped on 08/01/22. Remains HD stabe, downgraded to medical Remains at baseline mental status. (3) DKA (diabetic ketoacidosis): Plan: HAGMA 2/2 DKA in setting of elevated lactate from sepsis. Improved with current treatment Now off insulin drip and on subcutaneous therapy. She is eating. Cont basal/bolus insulin. Speech path consulted for some pocketing noted over the past two days. (4) Complicated UTI (urinary tract infection): Plan: Hypotensive, hypothermic. septic shock CT abd/pelvis with asymmetric right-sided perinephric stranding/inflammation with tiny foci of nonspecific gas within the right renal pelvis. Correlate clinically and with urinalysis for evidence of right-sided pyelonephritis Continue current abx (5) Gram-negative bacteremia: Plan: Klebsiella with repeat blood cultures showing this was cleared. Cont abx as above for total 14 days. (6) Hypothermia: Plan: 2/2 septic shock, resolved. Normothermic. (7) Elevated creatine kinase level: Plan: 2/2 sepsis and critical illness, no further workup. (8) Elevated troponin: Plan: Likely 2/2 demand ischemia in sepsis. No evidence of ACS or acute ischemia on EKG and echo with no acute wall motion abnormalities. severe calcification is present at the aortic valve. Also, troponin peaked. No further workup at this time. (9) WEST (acute kidney injury): Plan: In setting of severe dehydration, infection, DKA. Resolved after IV fluid resuscitation and her urine output has improved. (10) Diabetes mellitus, type 2: Plan: Initially managed for DKA as above. A1c reflects poor control. She is not yet eating and continues on subcutaneous insulin at this time. certified diabetes educator to see (11) Thrombocytopenia: Plan: Low but improved likely related to consumption from sepsis. Improvement is reflective of overall recovery, cont to monitor. Currently >100K (12) Paroxysmal atrial fibrillation: Plan: Now converted to sinus rhythm. Home regimen includes amiodarone, Lopressor and Eliquis for anticoagulation DVT Ppx: SCDs, Eliquis Code status: DNR/DNI PCP: Genna Benites Dispo: medically stable for rehab when bed is available. DO [facility]Sharp [place] Hospitalist Admission and Anticipated Discharge Date Admission Date: July 27, 2022 Subjective 82 yo F admitted with septic shock from urine source. Improved She is mentating at her baseline and now able to sit up better independently Her voice is stronger She denies any pain or SOB Review of Systems Review of Systems: All systems were reviewed and negative except as indicated above. Physical Exam Physical Exam: CONSTITUTIONAL: WNWD, vitals as above, ill appearing, elderly, appears more comfortable and not in acute distress. Appears stronger. EYES: normal conjunctivae, no scleral icterus ENT: external ear and nose normal, MMM NECK: trachea midline RESPIRATORY: clear to auscultation bilaterally, no crackles, rales or wheezes, increased respiratory effort. CARDIOVASCULAR: reg rate and regular rhythm, S1 and 2 heard without murmurs, gallops or rubs, no peripheral edema CHEST: inspection of chest was normal GASTROINTESTINAL: soft, nondistended, no guarding. MUSCULOSKELETAL: she is better able to sit up independently today. Generally very weak. SKIN: warm and dry NEUROLOGIC: appears nonfocal, slightly brighter, oriented. Results & Data Results & Data ([facility]) Vital Signs (Past 12 Hours) Vital Signs Temp Pulse Resp BP BP Pulse Ox Pulse Ox 08/03/22 07:32 94 08/03/22 08:45 08/03/22 08:50 60 100/60 08/03/22 07:32 36.8 C 57 L 18 109/51 L 94 08/03/22 05:34 96 08/03/22 05:18 94 08/03/22 04:43 36.8 C 62 20 99/60 L 92 O2 Del Method O2 Del Method 08/03/22 07:32 Room Air 08/03/22 08:45 Room Air 08/03/22 08:50 08/03/22 07:32 Room Air 08/03/22 05:34 Room Air 08/03/22 05:18 Room Air 08/03/22 04:43 Room Air Medications Administered Current Inpatient Medications Acetaminophen (Acetaminophen 325 Mg Tab) 650 mg PO Q4H PRN PRN Reason: pain/fever Stop: 08/30/22 10:46 Amiodarone HCl (Amiodarone 200 Mg Tab) 100 mg PO DAILY TITI Stop: 08/27/22 08:59 Last Admin: 08/03/22 09:41 Dose: 100 mg Apixaban (Apixaban 5 Mg Tablet) 5 mg PO BID TITI Stop: 08/26/22 20:59 Last Admin: 08/03/22 08:58 Dose: 5 mg Atorvastatin Calcium (Atorvastatin 10 Mg Tab) 10 mg PO DAILY TITI Stop: 08/27/22 08:59 Last Admin: 08/03/22 08:59 Dose: 10 mg Cefdinir (Cefdinir 300 Mg Cap) 300 mg PO BID TITI Stop: 08/09/22 20:59 Last Admin: 08/03/22 08:58 Dose: 300 mg Dextrose (Dextrose 50% 50 Ml Syringe) 25 - 50 ml IV UD PRN; Protocol PRN Reason: Hypoglycemia Protocol Stop: 08/26/22 14:47 Last Admin: 07/30/22 06:14 Dose: 25 ml Diclofenac Sodium (Diclofenac Sod 1% Gel 100 Gm Tube) 1 gm EXT BID PRN; Protocol PRN Reason: Pain Stop: 08/26/22 19:43 Last Admin: 08/02/22 19:52 Dose: 1 gm Docusate Sodium (Docusate Sodium 100 Mg Cap) 100 mg PO BID PRN PRN Reason: Constipation Stop: 08/26/22 19:43 Glucagon (Glucagon For Inj 1 Mg Vial) 1 mg SQ UD PRN; Protocol PRN Reason: Hypoglycemia Protocol Stop: 08/26/22 14:47 Glucose (Glucose 40% Gel 15 Gm Tube) 15 - 30 gm PO UD PRN; Protocol PRN Reason: Hypoglycemia Protocol Stop: 08/26/22 14:47 Glucose (Glucose 10 Tab/Tube) 4 - 8 tab PO UD PRN; Protocol PRN Reason: Hypoglycemia Treatment Stop: 08/26/22 14:47 Insulin Aspart (Insulin Aspart Per Unit) 0 units SC ACHS [facility]; Protocol Stop: 08/29/22 11:59 Last Admin: 08/03/22 13:07 Dose: 4 units Insulin Glargine (Lantus Per Unit Charge) 15 units SQ BID [facility] Stop: 09/01/22 11:14 Last Admin: 08/03/22 09:15 Dose: 15 units Lactobacillus Acidophilus (Advanced Probiotic 1250 Mg Capsule) 2 cap PO DAILY TITI Stop: 08/27/22 08:59 Last Admin: 08/03/22 08:58 Dose: 2 cap Magnesium Oxide (Magnesium Oxide 400 Mg Tab) 400 mg PO QAM [facility] Stop: 08/27/22 08:59 Last Admin: 08/03/22 09:41 Dose: 400 mg Metoprolol Tartrate (Metoprolol Tartrate 25 Mg Tab) 12.5 mg PO BID [facility] Stop: 09/02/22 20:59 Miscellaneous (Carbohydrates For Hypoglycemia ) 15 - 30 gm PO UD PRN PRN Reason: Hypoglycemia Protocol Stop: 08/26/22 14:47 Polyethylene Glycol (Polyethylene (Miralax) 17 Gm Pack) 17 gm PO DAILY PRN PRN Reason: Constipation Stop: 08/26/22 19:43 Potassium Chloride (Potassium Chloride Crtab 20 Meq Tabcr) 20 meq PO DAILY [facility] Stop: 08/27/22 08:59 Last Admin: 08/03/22 09:09 Dose: 20 meq Vitamin D (Cholecalciferol 1,000 Units 25 Mcg Tab) 2,000 units PO DAILY [facility] Stop: 08/27/22 08:59 Last Admin: 08/03/22 08:59 Dose: 2,000 units
[2022-08-04] MEDS: ACETAMINOPHEN 325 MG TAB PO PRN (08:39)
[2022-08-04] MEDS: AMIODARONE 200 MG TAB PO SCH (08:41)
[2022-08-04] MEDS: CEFDINIR 300 MG CAP PO SCH ×2 (08:42→20:41)
[2022-08-04] MEDS: APIXABAN 5 MG TABLET PO SCH ×2 (08:42→20:41)
[2022-08-04] MEDS: ATORVASTATIN 10 MG TAB PO SCH (08:42)
[2022-08-04] MEDS: ADVANCED PROBIOTIC 1250 MG CAPSULE PO SCH (08:43)
[2022-08-04] MEDS: CHOLECALCIFEROL 1,000 UNITS 25 MCG TAB PO SCH (08:43)
[2022-08-04] MEDS: METOPROLOL TARTRATE 25 MG TAB PO SCH ×2 (08:45→20:37)
[2022-08-04] MEDS: MAGNESIUM OXIDE 400 MG TAB PO SCH (08:45)
[2022-08-04 09:26] LABS: Hematocrit (blood only) 27.4 % (34.1-44.9); Mean Corpuscular Hemoglobin 27.2 pg (25.0-34.0); Mean Corpuscular Hgb Conc 32.8 g/dL (32.0-36.0); Mean Corpuscular Volume 82.8 fL (80.0-100.0); Mean Platelet Volume 11.3 fL (9.4-12.3); Platelet Count 263 K/uL (130-400); RDW Coefficient of Variation 15.2 % (11.5-14.5); RDW Standard Deviation 46.2 fL (36.4-46.3); Red Blood Count 3.31 M/uL (3.93-5.22); White Blood Count 7.75 K/ul (4.8-10.8)
[2022-08-04 09:55] LABS: BUN Creatinine Ratio 24.1 (10-20); Calcium 7.9 mg/dl (8.5-10.1); Creatinine Clr Calc Pharmacy 48.9 ml/min; Est GFR (African American) 75.1 ml/min; Est GFR (Non-African American) 64.8 ml/min; Potassium 4.4 mmol/L (3.5-5.1)
[2022-08-04] MEDS: POTASSIUM CHLORIDE CRTAB 20 MEQ TABCR PO SCH (10:06)
[2022-08-04] MEDS: LANTUS PER UNIT CHARGE SQ SCH ×2 (10:06→20:50)
[2022-08-04] MEDS: INSULIN ASPART PER UNIT SC SCH ×4 (10:07→20:50)
--- NOTE | 2022-08-04 15:37 | Hospitalist Progress Note ---
Date of Service August 04, 2022 Assessment & Plan (1) Septic shock: Plan: Resuscitated off pressor support. Continues on antibiotic therapy. Remains hemodynamically stable and is much improved (2) Acute metabolic encephalopathy: Plan: This is an 82-year-old female with PMH DM II, paroxysmal atrial fibrillation on Eliquis, HLD, depression and other medical problems listed below who presents to the ER after being found unresponsive at home and was found to have acute metabolic encephalopathy in setting of septic shock and metabolic acidosis 2/2 DKA. ANTONIA resolved-Multifactorial given septic shock 2/2 pyelo with gram negative bacteremia and DKA Received IV fluid resuscitation, antibiotics, rewarming was required CT head without acute intracranial abnormalities now off pressors and transitioned to PCU Continues on cefdinir for Klebsiella bacteremia likely 2/2 urine source. Midodrine TID starting for hemodynamic support while in the ICU; BP is stable and this has been stopped on 08/01/22. Resolved metabolic and colopathy and the patient is at her baseline Denies any significant symptoms (3) DKA (diabetic ketoacidosis): Plan: HAGMA 2/2 DKA in setting of elevated lactate from sepsis. Improved with current treatment Now off insulin drip and on subcutaneous therapy. She is eating. Cont basal/bolus insulin. Speech path consulted for some pocketing noted over the past two days. (4) Complicated UTI (urinary tract infection): Plan: Hypotensive, hypothermic. septic shock CT abd/pelvis with asymmetric right-sided perinephric stranding/inflammation with tiny foci of nonspecific gas within the right renal pelvis. Correlate clinically and with urinalysis for evidence of right-sided pyelonephritis Continue current abx Clinically much better (5) Gram-negative bacteremia: Plan: Klebsiella with repeat blood cultures showing this was cleared. Cont abx as above for total 14 days. (6) Hypothermia: Plan: 2/2 septic shock, resolved. Normothermic. (7) Elevated creatine kinase level: Plan: 2/2 sepsis and critical illness, no further workup. (8) Elevated troponin: Plan: Likely 2/2 demand ischemia in sepsis. No evidence of ACS or acute ischemia on EKG and echo with no acute wall motion abnormalities. severe calcification is present at the aortic valve. Also, troponin peaked. No further workup at this time. (9) WEST (acute kidney injury): Plan: In setting of severe dehydration, infection, DKA. Resolved after IV fluid resuscitation and her urine output has improved. (10) Diabetes mellitus, type 2: Plan: Initially managed for DKA as above. A1c reflects poor control. She is not yet eating and continues on subcutaneous insulin at this time. certified adapted physical educator to see (11) Thrombocytopenia: Plan: Low but improved likely related to consumption from sepsis. Improvement is reflective of overall recovery, cont to monitor. Currently >100K (12) Paroxysmal atrial fibrillation: Plan: Now converted to sinus rhythm. Home regimen includes amiodarone, Lopressor and Eliquis for anticoagulation DVT Ppx: SCDs, Eliquis Code status: DNR/DNI PCP: Genna Benites Dispo: medically stable for rehab when bed is available. Admission and Anticipated Discharge Date Admission Date: July 27, 2022 Subjective 08/04/2022 The patient was seen and examined in medical floor She has been stable and denies any symptoms today Generally weak but has been getting PT and OT Review of Systems Review of Systems: All systems reviewed and are unremarkable except as noted below Physical Exam Physical Exam: Lying in bed comfortably Constitutional: well developed, well nourished, + ill appearing and + obese Eyes: PERRL, conjunctivae normal, anicteric sclerae ENMT: external ear and nose normal, oropharynx normal Neck: trachea midline, no thyromegaly Respiratory: no respiratory distress Auscultation: lungs clear to auscultation bilaterally and + crackles (Minimal crackles at the bases) Cardiovascular: Rate/Rhythm: regular rate and regular rhythm; not tachycardic Heart Sounds: normal S1 and normal S2; no murmur Extremities: + edema (Trace edema bilaterally) Gastrointestinal (Abdomen): Inspection/Auscultation: normal bowel sounds; abdomen not distended Percussion/Palpation: abdomen soft; abdomen nontender Musculoskeletal: No acute arthritis in any joint Neurologic: Alert, awake and oriented x3. Generally weak and lethargic Lymphatic: no cervical or axillary lymphadenopathy Results & Data Results & Data ([facility]) Vital Signs (Past 12 Hours) Vital Signs Temp Pulse Resp BP Pulse Ox O2 Del Method 08/04/22 07:44 36.9 C 64 14 115/72 92 Room Air Laboratory Results Short CBC 08/04/22 Range/Units 08:57 WBC 7.75 (4.8-10.8) K/ul Hgb 9.0 L (12.0-16.0) g/dl Hct 27.4 L (34.1-44.9) % Plt Count 263 (130-400) K/uL BMP 08/04/22 08:57 Sodium 137 Potassium 4.4 Chloride 109 H Carbon Dioxide 23 BUN 20 Creatinine 0.83 Glucose 89 Calcium 7.9 L Medications Administered Current Inpatient Medications Acetaminophen (Acetaminophen 325 Mg Tab) 650 mg PO Q4H PRN PRN Reason: pain/fever Stop: 08/30/22 10:46 Last Admin: 08/04/22 08:39 Dose: 650 mg Amiodarone HCl (Amiodarone 200 Mg Tab) 100 mg PO DAILY TITI Stop: 08/27/22 08:59 Last Admin: 08/04/22 08:41 Dose: 100 mg Apixaban (Apixaban 5 Mg Tablet) 5 mg PO BID TITI Stop: 08/26/22 20:59 Last Admin: 08/04/22 08:42 Dose: 5 mg Atorvastatin Calcium (Atorvastatin 10 Mg Tab) 10 mg PO DAILY TITI Stop: 08/27/22 08:59 Last Admin: 08/04/22 08:42 Dose: 10 mg Cefdinir (Cefdinir 300 Mg Cap) 300 mg PO BID TITI Stop: 08/09/22 20:59 Last Admin: 08/04/22 08:42 Dose: 300 mg Dextrose (Dextrose 50% 50 Ml Syringe) 25 - 50 ml IV UD PRN; Protocol PRN Reason: Hypoglycemia Protocol Stop: 08/26/22 14:47 Last Admin: 07/30/22 06:14 Dose: 25 ml Diclofenac Sodium (Diclofenac Sod 1% Gel 100 Gm Tube) 1 gm EXT BID PRN; Protocol PRN Reason: Pain Stop: 08/26/22 19:43 Last Admin: 08/02/22 19:52 Dose: 1 gm Docusate Sodium (Docusate Sodium 100 Mg Cap) 100 mg PO BID PRN PRN Reason: Constipation Stop: 08/26/22 19:43 Glucagon (Glucagon For Inj 1 Mg Vial) 1 mg SQ UD PRN; Protocol PRN Reason: Hypoglycemia Protocol Stop: 08/26/22 14:47 Glucose (Glucose 40% Gel 15 Gm Tube) 15 - 30 gm PO UD PRN; Protocol PRN Reason: Hypoglycemia Protocol Stop: 08/26/22 14:47 Glucose (Glucose 10 Tab/Tube) 4 - 8 tab PO UD PRN; Protocol PRN Reason: Hypoglycemia Treatment Stop: 08/26/22 14:47 Insulin Aspart (Insulin Aspart Per Unit) 0 units SC ACHS [facility]; Protocol Stop: 08/29/22 11:59 Last Admin: 08/04/22 13:07 Dose: 6 units Insulin Glargine (Lantus Per Unit Charge) 15 units SQ BID [facility] Stop: 09/01/22 11:14 Last Admin: 08/04/22 10:06 Dose: 15 units Lactobacillus Acidophilus (Advanced Probiotic 1250 Mg Capsule) 2 cap PO DAILY [facility] Stop: 08/27/22 08:59 Last Admin: 08/04/22 08:43 Dose: 2 cap Magnesium Oxide (Magnesium Oxide 400 Mg Tab) 400 mg PO QAM [facility] Stop: 08/27/22 08:59 Last Admin: 08/04/22 08:45 Dose: 400 mg Metoprolol Tartrate (Metoprolol Tartrate 25 Mg Tab) 12.5 mg PO BID [facility] Stop: 09/02/22 20:59 Last Admin: 08/04/22 08:45 Dose: 12.5 mg Miscellaneous (Carbohydrates For Hypoglycemia ) 15 - 30 gm PO UD PRN PRN Reason: Hypoglycemia Protocol Stop: 08/26/22 14:47 Polyethylene Glycol (Polyethylene (Miralax) 17 Gm Pack) 17 gm PO DAILY PRN PRN Reason: Constipation Stop: 08/26/22 19:43 Potassium Chloride (Potassium Chloride Crtab 20 Meq Tabcr) 20 meq PO DAILY [facility] Stop: 08/27/22 08:59 Last Admin: 08/04/22 10:06 Dose: 20 meq Vitamin D (Cholecalciferol 1,000 Units 25 Mcg Tab) 2,000 units PO DAILY [facility] Stop: 08/27/22 08:59 Last Admin: 08/04/22 08:43 Dose: 2,000 units
[2022-08-05 08:31] LABS: Basophils # (auto) 0.03 K/uL (0-0.2); Basophils % (auto) 0.4 %; Eosinophils # (auto) 0.11 K/uL (0-0.50); Eosinophils % (auto) 1.3 %; Hematocrit (blood only) 26.9 % (34.1-44.9); Hemoglobin 8.6 g/dl (12.0-16.0); Immature Granulocytes # (auto) 0.05 K/uL (0.00-0.02); Immature Granulocytes % (auto) 0.6 %; Lymphocytes # (auto) 1.56 K/uL (1.2-3.4); Lymphocytes % (auto) 18.9 %; Mean Corpuscular Hemoglobin 26.5 pg (25.0-34.0); Mean Platelet Volume 10.6 fL (9.4-12.3); Monocytes % (auto) 10.9 %; Neutrophils # (auto) 5.61 K/uL (1.4-6.5); Neutrophils % (auto) 67.9 %; Platelet Count 312 K/uL (130-400); RDW Standard Deviation 46.5 fL (36.4-46.3); Red Blood Count 3.24 M/uL (3.93-5.22); White Blood Count 8.26 K/ul (4.8-10.8)
[2022-08-05] MEDS: APIXABAN 5 MG TABLET PO SCH ×2 (08:46→20:29)
[2022-08-05] MEDS: METOPROLOL TARTRATE 25 MG TAB PO SCH ×2 (08:46→20:30)
[2022-08-05] MEDS: AMIODARONE 200 MG TAB PO SCH (08:47)
[2022-08-05] MEDS: CHOLECALCIFEROL 1,000 UNITS 25 MCG TAB PO SCH (08:47)
[2022-08-05] MEDS: CEFDINIR 300 MG CAP PO SCH ×2 (08:48→20:30)
[2022-08-05] MEDS: ATORVASTATIN 10 MG TAB PO SCH (08:48)
[2022-08-05] MEDS: ADVANCED PROBIOTIC 1250 MG CAPSULE PO SCH (08:49)
[2022-08-05] MEDS: MAGNESIUM OXIDE 400 MG TAB PO SCH (08:50)
[2022-08-05 08:54] LABS: BUN Creatinine Ratio 24.1 (10-20); Calcium 7.5 mg/dl (8.5-10.1); Creatinine Clr Calc Pharmacy 46.7 ml/min; Est GFR (African American) 70.9 ml/min; Est GFR (Non-African American) 61.2 ml/min; Potassium 4.3 mmol/L (3.5-5.1)
[2022-08-05] MEDS: INSULIN ASPART PER UNIT SC SCH ×4 (09:18→20:28)
[2022-08-05] MEDS: LANTUS PER UNIT CHARGE SQ SCH ×2 (09:18→20:29)
[2022-08-05] MEDS: POTASSIUM CHLORIDE CRTAB 20 MEQ TABCR PO SCH (09:24)
[2022-08-05] MEDS: POLYETHYLENE (MIRALAX) 17 GM PACK PO PRN (16:47)
--- NOTE | 2022-08-05 17:03 | Hospitalist Progress Note ---
Date of Service August 05, 2022 Assessment & Plan (1) Septic shock: Plan: Resuscitated off pressor support. Continues on antibiotic therapy. Remains hemodynamically stable and is much improved (2) Acute metabolic encephalopathy: Plan: This is an 82-year-old female with PMH DM II, paroxysmal atrial fibrillation on Eliquis, HLD, depression and other medical problems listed below who presents to the ER after being found unresponsive at home and was found to have acute metabolic encephalopathy in setting of septic shock and metabolic acidosis 2/2 DKA. ANTONIA resolved-Multifactorial given septic shock 2/2 pyelo with gram negative bacteremia and DKA Received IV fluid resuscitation, antibiotics, rewarming was required CT head without acute intracranial abnormalities now off pressors and transitioned to PCU Continues on cefdinir for Klebsiella bacteremia likely 2/2 urine source. Midodrine TID starting for hemodynamic support while in the ICU; BP is stable and this has been stopped on 08/01/22. Resolved metabolic and colopathy and the patient is at her baseline Denies any significant symptoms (3) DKA (diabetic ketoacidosis): Plan: HAGMA 2/2 DKA in setting of elevated lactate from sepsis. Improved with current treatment Now off insulin drip and on subcutaneous therapy. She is eating. Cont basal/bolus insulin. Speech path consulted for some pocketing noted over the past two days. (4) Complicated UTI (urinary tract infection): Plan: Hypotensive, hypothermic. septic shock CT abd/pelvis with asymmetric right-sided perinephric stranding/inflammation with tiny foci of nonspecific gas within the right renal pelvis. Correlate clinically and with urinalysis for evidence of right-sided pyelonephritis Continue current abx Clinically much better (5) Gram-negative bacteremia: Plan: Klebsiella with repeat blood cultures showing this was cleared. Cont abx as above for total 14 days. (6) Hypothermia: Plan: 2/2 septic shock, resolved. Normothermic. (7) Elevated creatine kinase level: Plan: 2/2 sepsis and critical illness, no further workup. (8) Elevated troponin: Plan: Likely 2/2 demand ischemia in sepsis. No evidence of ACS or acute ischemia on EKG and echo with no acute wall motion abnormalities. severe calcification is present at the aortic valve. Also, troponin peaked. No further workup at this time. (9) WEST (acute kidney injury): Plan: In setting of severe dehydration, infection, DKA. Resolved after IV fluid resuscitation and her urine output has improved. (10) Diabetes mellitus, type 2: Plan: Initially managed for DKA as above. A1c reflects poor control. She is not yet eating and continues on subcutaneous insulin at this time. clinical unit educator to see (11) Thrombocytopenia: Plan: Low but improved likely related to consumption from sepsis. Improvement is reflective of overall recovery, cont to monitor. Currently >100K (12) Paroxysmal atrial fibrillation: Plan: Now converted to sinus rhythm. Home regimen includes amiodarone, Lopressor and Eliquis for anticoagulation DVT Ppx: SCDs, Eliquis Code status: DNR/DNI PCP: Genna Benites Dispo: medically stable for rehab when bed is available. Admission and Anticipated Discharge Date Admission Date: July 27, 2022 Supervising Physician Co-Signing Physician Notes Attending addendum: The patient was seen and examined in medical floor She has been stable but remains very weak and lethargic Denies any significant symptoms On examination Lying in bed comfortably Hemodynamically stable Chest-decreased breath sounds bilaterally with minimal crackles at the bases Heart-S1-S2, regular Abdomen-benign Extremities-trace edema bilaterally Her labs and imaging studies reviewed Agree with assessment and plan as outlined above by SHANNON Newell Dr Subjective Seen and examined in 376 bed 2. Resting comfortably but awakens and answers questions appropriately. Urinating with pure wick in place. Denies any pain. No fever, chills, lightheadedness, chest pain, shortness of breath, nausea, vomiting, abdominal pain, dysuria, diarrhea or constipation. Generally weak but has been getting PT and OT. Awaiting placement Review of Systems Review of Systems: At least ten systems reviewed and negative except as noted in the HPI. Physical Exam Physical Exam: Gen: WD/WN, NAD, lying in bed, A&Ox3, elderly appearing female, resting but awakens appropriately to questions HEENT: Normocephalic, atraumatic, conjunctivae moist, sclerae anicteric, mucous membranes moist Lung: Clear to Auscultation bilaterally, no wheezes/rales/rhonchi Heart: Regular rate, regular rhythm, no murmurs, rubs, or gallops Abdomen: Soft, NT, ND +BS x 4 MSK: generally weak Extremities: no edema Skin: Warm, no rash Results & Data Results & Data ([facility]) Vital Signs (Past 12 Hours) Vital Signs Temp Pulse Resp BP BP Pulse Ox O2 Del Method 08/05/22 15:44 36.5 C 66 14 117/78 97 Room Air 08/05/22 07:25 Room Air 08/05/22 08:44 72 108/55 L 08/05/22 07:41 36.6 C 71 16 117/66 94 Room Air Laboratory Results Short CBC 08/05/22 Range/Units 08:16 WBC 8.26 (4.8-10.8) K/ul Hgb 8.6 L (12.0-16.0) g/dl Hct 26.9 L (34.1-44.9) % Plt Count 312 (130-400) K/uL BMP 08/05/22 08:16 Sodium 135 L Potassium 4.3 Chloride 106 Carbon Dioxide 25 BUN 21 Creatinine 0.87 Glucose 110 H Calcium 7.5 L Diagnostic Findings Abdomen/Pelvis CT 07/27/22 12:58 CT SCAN OF THE ABDOMEN AND PELVIS WITHOUT IV CONTRAST CLINICAL HISTORY: Found down. COMPARISON STUDY: Abdominal CT dated 01/01/2012. TECHNIQUE: CT scan of the abdomen and pelvis is performed from the lung bases to the proximal femora. Images are reviewed in the axial, sagittal, and coronal planes. IV contrast was not administered for this examination. Note that the examination is significantly suboptimal without oral and IV contrast. There is motion artifact, as well as streak artifact from the arms which could not be elevated above the abdomen. A dose lowering technique was utilized adhering to the principles of ALARA. FINDINGS: Lung bases: The heart is enlarged and without pericardial effusion. The lung bases are clear noting bibasilar scarring/atelectasis. A small hiatal hernia is noted. Liver: The unenhanced liver is cirrhotic in morphology and heterogeneous in attenuation. There is nodularity of the hepatic surface contour. There is no intrahepatic biliary ductal dilatation. Gallbladder: Surgically absent. Spleen: Normal in size and attenuation. Pancreas: The unenhanced pancreas is atrophic and grossly unremarkable. Adrenal glands: Unremarkable. Kidneys: The unenhanced kidneys demonstrate mild cortical atrophy and are without hydronephrosis. There are tiny foci of gas within the right renal collecting system. Asymmetric Extraneous on the right. There are no renal calculi identified. There is no evidence of contour deforming renal mass lesion. Abdominal vasculature: The abdominal aorta is normal in course and caliber noting mild atherosclerotic calcification. Bowel: There are scattered colonic diverticula without CT evidence of acute diverticulitis. No bowel obstruction is seen. The appendix is well-visualized and normal. Peritoneum: There is no intraperitoneal free air or abdominal ascites. Lymphadenopathy: None. Pelvic viscera: The bladder is decompressed around a Kraus catheter and could not be assessed. Gas within the bladder lumen is likely related to instrumentation. The uterus is surgically absent. No adnexal lesion is seen. Skeletal structures: The skeletal structures are osteopenic. There are chronic a ppearing compression deformities of T11, T12, L1, L2, and L3. Several views are new from 2012. Lumbosacral spondylosis is observed. No lytic or blastic lesions are seen. IMPRESSION: 1. There is asymmetric right-sided perinephric stranding/inflammation with tiny foci of nonspecific gas within the right renal pelvis. Correlate clinically and with urinalysis for evidence of right-sided pyelonephritis. Emphysematous infection is not excluded. 2. Cirrhotic liver morphology. 3. Cardiomegaly. 4. Additional findings as above. ACT 112: Negative or not required by law. Electronically signed by: Jeronimo Orosco M.D. 07/27/2022 2:[address] 07/27/22 12:58 CT cervical spine wo con CLINICAL HISTORY: found down TECHNIQUE: Multidetector row helical CT of the cervical spine was performed without administration of intravenous contrast. Coronal and sagittal reformations were obtained. Automated dose lowering techniques and/or adjustment according to patient size were utilized for this exam. Comparison: None available at the time of this dictation. FINDINGS: No acute fractures or subluxations are identified. Degenerative changes are seen in the visualized spine. Transverse ligament calcification is noted. The alignment is normal. Soft tissues are unremarkable. IMPRESSION: Degenerative changes without evidence of acute bony injury. ACT 112: Negative or not required by law. Electronically signed by: Preston Carrasquillo M.D. 07/27/2022 2:10 PM Chest X-Ray 07/27/22 12:58 SINGLE VIEW CHEST CLINICAL HISTORY: Found down. FINDINGS: An AP, portable, supine chest radiograph is compared to study dated 12/22/2021. The heart is enlarged noting atherosclerotic calcification of the thoracic aorta. The pulmonary vasculature is noncongested. Chronic interstitial thickening is similar to previous. There is mild bibasilar scarring/atelectasis. No airspace consolidation or large pleural effusion is identified. No pneumothorax is seen. The skeletal structures are osteopenic. The bony thorax is grossly intact. IMPRESSION: Cardiomegaly with no acute cardiopulmonary abnormality identified. ACT 112: Negative or not required by law. Electronically signed by: Jeronimo Orosco M.D. 07/27/2022 1:[address] 07/27/22 12:58 CT head/brain wo con CLINICAL HISTORY: 82 years-old Female with found down. Acute head trauma TECHNIQUE: Multiple axial CT images of the head were obtained without contrast. A dose lowering technique was utilized adhering to the principles of ALARA. CT DOSE: 1516.11 mGy.cm COMPARISON: 09/09/2020 FINDINGS: No acute intracranial hemorrhage, midline shift, intracranial mass, hydrocephalus, territorial ischemia or abnormal extra-axial collection. Involutional changes with ventriculomegaly redemonstrated, likely on an ex vacuo basis. The calvarium is intact. Partially imaged nasal bone fractures are favored to be chronic. Prior bilateral lens repair. The paranasal sinuses, mastoid air cells, and middle ear cavities are clear. IMPRESSION: No acute intracranial abnormality or calvarial fracture. ACT 112: Negative or not required by law. The above report was generated using voice recognition software. It may contain grammatical, syntax or spelling errors. Electronically signed by: Alex Herrera M.D. 07/27/2022 2:01 PM Pelvis X-Ray 07/27/22 12:58 XR pelvis 1-2V routine CLINICAL HISTORY: found down TECHNIQUE: A single frontal view of the pelvis was obtained. Comparison: Comparison is made to pelvic radiograph 09/09/2020 FINDINGS: Of note, the top of the iliac crests are not within the field of view. There is no evidence of an acute fracture. Degenerative changes are seen in the hip joints and lumbar spine. No soft tissue abnormality is seen. IMPRESSION: Degenerative changes are seen. No pelvic ring fractures are visualized. ACT 112: Negative or not required by law. Electronically signed by: Preston Carrasquillo M.D. 07/27/2022 1:24 PM Chest X-Ray 07/28/22 04:00 XR chest 1V portable CLINICAL HISTORY: evaluate pulmonary metcalf TECHNIQUE: Single frontal radiograph of the chest was obtained. Comparison: Comparison is made to chest radiograph 07/27/2022 FINDINGS: No lines and tubes are seen. Calcified aortic knob is seen. The lungs are clear. No evidence of pleural effusion or pneumothorax. IMPRESSION: No acute abnormalities and in particular no evidence of pneumonia. ACT 112: Negative or not required by law. Electronically signed by: Preston Carrasquillo M.D. 07/28/2022 8:43 AM Chest X-Ray 07/29/22 04:00 XR chest 1V portable HISTORY: Shortness of breath. COMPARISON: Chest 07/28/2022. FINDINGS: There are low lung volumes. Questionable focal right apical density is not appreciated on the recent cervical spine CT and is therefore likely artifact. The heart remains mildly enlarged. No evidence for pulmonary edema. No new focal lung consolidations to suggest a pneumonia. No pleural effusions. No pneumothorax. IMPRESSION: No significant change compared to the prior study. No acute process. ACT 112: Negative or not required by law. Electronically signed by: Phu Presley M.D. 07/29/2022 8:11 AM
[2022-08-06] MEDS: CARBOHYDRATES FOR HYPOGLYCEMIA PO PRN ×2 (08:28→08:46)
[2022-08-06] MEDS: CEFDINIR 300 MG CAP PO SCH ×2 (09:48→20:24)
[2022-08-06] MEDS: ADVANCED PROBIOTIC 1250 MG CAPSULE PO SCH (09:49)
[2022-08-06] MEDS: CHOLECALCIFEROL 1,000 UNITS 25 MCG TAB PO SCH (09:49)
[2022-08-06] MEDS: ATORVASTATIN 10 MG TAB PO SCH (09:49)
[2022-08-06] MEDS: AMIODARONE 200 MG TAB PO SCH (09:51)
[2022-08-06] MEDS: MAGNESIUM OXIDE 400 MG TAB PO SCH (09:51)
[2022-08-06] MEDS: METOPROLOL TARTRATE 25 MG TAB PO SCH ×2 (09:52→20:23)
[2022-08-06] MEDS: APIXABAN 5 MG TABLET PO SCH ×2 (09:53→20:24)
[2022-08-06] MEDS: POTASSIUM CHLORIDE CRTAB 20 MEQ TABCR PO SCH (10:04)
[2022-08-06] MEDS: INSULIN ASPART PER UNIT SC SCH ×4 (10:08→20:35)
[2022-08-06] MEDS: LANTUS PER UNIT CHARGE SQ SCH ×2 (10:16→20:34)
[2022-08-06] MEDS: DICLOFENAC SOD 1% GEL 100 GM TUBE EXT PRN (12:12)
[2022-08-06] MEDS: ACETAMINOPHEN 325 MG TAB PO PRN ×2 (14:15→23:09)
--- NOTE | 2022-08-06 15:34 | Hospitalist Progress Note ---
Date of Service August 06, 2022 Assessment & Plan (1) Septic shock: Plan: Resuscitated off pressor support. Continues on antibiotic therapy. Remains hemodynamically stable and is much improved (2) Acute metabolic encephalopathy: Plan: This is an 82-year-old female with PMH DM II, paroxysmal atrial fibrillation on Eliquis, HLD, depression and other medical problems listed below who presents to the ER after being found unresponsive at home and was found to have acute metabolic encephalopathy in setting of septic shock and metabolic acidosis 2/2 DKA. ANTONIA resolved-Multifactorial given septic shock 2/2 pyelo with gram negative bacteremia and DKA Received IV fluid resuscitation, antibiotics, rewarming was required CT head without acute intracranial abnormalities now off pressors and transitioned to PCU Continues on cefdinir for Klebsiella bacteremia likely 2/2 urine source. Midodrine TID starting for hemodynamic support while in the ICU; BP is stable and this has been stopped on 08/01/22. Resolved metabolic and colopathy and the patient is at her baseline Denies any significant symptoms (3) DKA (diabetic ketoacidosis): Plan: HAGMA 2/2 DKA in setting of elevated lactate from sepsis. Improved with current treatment Now off insulin drip and on subcutaneous therapy. She is eating. Cont basal/bolus insulin. Speech path consulted for some pocketing noted over the past two days. (4) Complicated UTI (urinary tract infection): Plan: Hypotensive, hypothermic. septic shock CT abd/pelvis with asymmetric right-sided perinephric stranding/inflammation with tiny foci of nonspecific gas within the right renal pelvis. Correlate clinically and with urinalysis for evidence of right-sided pyelonephritis Continue current abx Clinically much better (5) Gram-negative bacteremia: Plan: Klebsiella with repeat blood cultures showing this was cleared. Cont abx as above for total 14 days (last day of course to be 08/09/21) (6) Hypothermia: Plan: 2/2 septic shock, resolved. Normothermic. (7) Elevated creatine kinase level: Plan: 2/2 sepsis and critical illness, no further workup. (8) Elevated troponin: Plan: Likely 2/2 demand ischemia in sepsis. No evidence of ACS or acute ischemia on EKG and echo with no acute wall motion abnormalities. severe calcification is present at the aortic valve. Also, troponin peaked. No further workup at this time. (9) WEST (acute kidney injury): Plan: In setting of severe dehydration, infection, DKA. Resolved after IV fluid resuscitation and her urine output has improved. (10) Diabetes mellitus, type 2: Plan: Initially managed for DKA as above. A1c reflects poor control. She is not yet eating and continues on subcutaneous insulin at this time. tobacco prevention health educator to see (11) Thrombocytopenia: Plan: Low but improved likely related to consumption from sepsis. Improvement is reflective of overall recovery, cont to monitor. Currently >100K (12) Paroxysmal atrial fibrillation: Plan: Now converted to sinus rhythm. Home regimen includes amiodarone, Lopressor and Eliquis for anticoagulation BLE pain In setting of deconditioning, underlying arthritis Able to stand with support with PT today Dr. Hernandez to re-examine, will order further imaging if necessary DVT Ppx: SCDs, Eliquis Code status: DNR/DNI PCP: Genna Benitse Dispo: medically stable for rehab when bed is available. Admission and Anticipated Discharge Date Admission Date: July 27, 2022 Supervising Physician Co-Signing Physician Notes Attending addendum The patient was seen and examined in medical floor She remained stable but very weak and lethargic Complains pain all over mainly bilateral lower legs Denies any shortness of breath, fever and or chills, any nausea and or vomiting On examination Lying in bed comfortably No apparent distress at rest Hemodynamically stable Chest-creased breath sounds both sides due to poor effort Heart-S1-S2, regular Abdomen-benign Extremities-trace edema bilaterally MS system-active movements of the legs bilaterally did have some pain involving whole the legs but no restriction in joint movements Her labs and medication reviewed Has bilateral legs pain-without any clinical evidence of fracture History of fall Will get x-ray of the pelvis Agree with assessment and plan as outlined above by SHANNON Newell Dr Subjective Seen and examined in 376 bed 2. Just begun to get up to work with therapy during evaluation. Complaining of diffuse leg discomfort. Swelling seem to be at baseline. Alert, oriented and answering questions appropriately. Seems more energetic today. No fever, chills, lightheadedness, chest pain, shortness of breath, nausea, vomiting, abdominal pain, dysuria, diarrhea or constipation. Generally weak but has been getting PT and OT. Awaiting placement Review of Systems Review of Systems: At least ten systems reviewed and negative except as noted in the HPI. Physical Exam Physical Exam: Gen: WD/WN, NAD, sitting on side of bed, A&Ox3, elderly appearing female HEENT: Normocephalic, atraumatic, conjunctivae moist, sclerae anicteric, mucous membranes moist Lung: Clear to Auscultation bilaterally, no wheezes/rales/rhonchi Heart: Regular rate, regular rhythm, no murmurs, rubs, or gallops Abdomen: Soft, NT, ND +BS x 4 MSK: generally weak, diffuse TTP of bilateral lower extremities Extremities: Trace edema unchanged Skin: Warm, no rash Results & Data Results & Data ([facility]) Vital Signs (Past 12 Hours) Vital Signs Temp Pulse Resp BP Pulse Ox O2 Del Method 08/06/22 07:15 Room Air 08/06/22 07:49 36.5 C 64 16 108/63 95 Room Air
[2022-08-06] MEDS ORDERED: traMADol HCL 50 MG TABLET PO STA (16:42)
--- NOTE | 2022-08-06 17:45 | XRay Report ---
SINGLE VIEW PELVIS CLINICAL HISTORY: Bilateral leg pain. FINDINGS: 2 AP, portable, supine pelvic radiographs are compared to pelvic radiographs and CT dated 09/27/2021. The skeletal structures are osteopenic. There is no radiographic evidence of fracture invo lving the hips or bony pelvis. Moderate arthritic change and joint space narrowing is seen in the hip s. Degenerative sclerosis is noted in the sacroiliac joints. Enthesophytes arise from the anterior pollock perior iliac spines. Mild body wall edema is noted. A catheter projects over the pelvis. IMPRESSION: No acute bony abnormality is identified. Electronically signed by: Jeronimo Orosco M.D. 08/06/2022 5:42 PM
[2022-08-06] MEDS: DOCUSATE SODIUM 100 MG CAP PO PRN (17:49)
[2022-08-06] MEDS: POLYETHYLENE (MIRALAX) 17 GM PACK PO PRN (17:49)
[2022-08-07] MEDS ORDERED: traMADol HCL 50 MG TABLET PO STA (00:36)
[2022-08-07] MEDS: ACETAMINOPHEN 325 MG TAB PO PRN ×3 (06:03→20:11)
[2022-08-07] MEDS: DICLOFENAC SOD 1% GEL 100 GM TUBE EXT PRN ×2 (06:04→20:12)
[2022-08-07] MEDS ORDERED: ALUMINUM/MAGNESIUM/SIMETH (MAALOX MAX) 30 ML UDC PO STA (06:20)
[2022-08-07] MEDS ORDERED: NITROGLYCERIN SL 0.4 MG/TAB TAB SL STA (06:21)
[2022-08-07] MEDS ORDERED: NITROGLYCERIN SL 0.4 MG/TAB TAB ONE (06:23)
[2022-08-07] MEDS ORDERED: MoRPHine SULFATE 2 MG/ML CARP IV STA (06:30)
[2022-08-07] MEDS: CEFDINIR 300 MG CAP PO SCH ×2 (09:05→20:32)
[2022-08-07] MEDS: APIXABAN 5 MG TABLET PO SCH ×2 (09:06→20:32)
[2022-08-07] MEDS: CHOLECALCIFEROL 1,000 UNITS 25 MCG TAB PO SCH (09:07)
[2022-08-07] MEDS: ATORVASTATIN 10 MG TAB PO SCH (09:07)
[2022-08-07] MEDS: MAGNESIUM OXIDE 400 MG TAB PO SCH (09:07)
[2022-08-07] MEDS: ADVANCED PROBIOTIC 1250 MG CAPSULE PO SCH (09:07)
[2022-08-07] MEDS: METOPROLOL TARTRATE 25 MG TAB PO SCH ×2 (09:08→20:31)
[2022-08-07] MEDS: AMIODARONE 200 MG TAB PO SCH (09:08)
[2022-08-07] MEDS: LANTUS PER UNIT CHARGE SQ SCH ×2 (09:19→20:45)
[2022-08-07] MEDS: INSULIN ASPART PER UNIT SC SCH ×4 (09:19→20:45)
[2022-08-07] MEDS: POTASSIUM CHLORIDE CRTAB 20 MEQ TABCR PO SCH (09:36)
--- NOTE | 2022-08-07 15:51 | Hospitalist Progress Note ---
Date of Service August 07, 2022 Assessment & Plan (1) Gram-negative bacteremia: Plan This is an 82-year-old female with PMH DM II, paroxysmal atrial fibrillation on Eliquis, HLD, depression and other medical problems listed below who presents to the ER after being found unresponsive at home and was found to have acute metabolic encephalopathy in setting of septic shock and metabolic acidosis 2/2 DKA. She is being managed for the following: Septic shock: Gram-negative bacteremia Complicated UTI Admitting CT abdomen pelvis with asymmetric right-sided perinephric stranding/inflammation with tiny foci of nonspecific gas within the right renal pelvis. Correlate clinically and with urinalysis for evidence of right-sided pyelonephritis. 07/27 urine culture and blood culture positive for Klebsiella pneumoniae, pansensitive Patient is a status post pressor support, currently hemodynamically stable, continue with antibiotic for total of 14 days [last day of antibiotic course to be 08/09/2021] Acute metabolic encephalopathy: Admitting CT head with no acute findings. ANTONIA resolved-Multifactorial given septic shock 2/2 pyelo with gram negative bacteremia and DKA Currently alert and awake, oriented x1. Continue to treat bacteremia/UTI. Speech therapy evaluated for some pocketing noted over the hospital admission, recommends pured diet with thin liquids and aspiration precaution and mouth care. Also reflux precaution. DKA (diabetic ketoacidosis): Status posttreatment. Now off insulin drip. She is eating. Continue sliding scale insulin. Speech therapy BLE pain/deconditioning: PT/OT, pelvic x-ray with no acute finding. Elevated creatinine kinase level: Secondary to sepsis and critical illness. No further work-up. Elevated troponin: Likely secondary to demand ischemia and sepsis. Acute kidney injury: In the setting of severe dehydration/infection/DKA. Resolved after IV fluid resuscitation. Thrombocytopenia: Likely secondary to sepsis. Improved. Other chronic medical conditions: DM, paroxysmal A. fib --continue home meds as able. DVT prophylaxis: Eliquis CODE STATUS: DNR/DNI Disposition: Medically stable for rehab when bed is available. Admission and Anticipated Discharge Date Admission Date: July 27, 2022 Subjective Patient seen and examined bedside as a follow-up of septic shock, complicated UTI, gram-negative bacteremia, acute metabolic encephalopathy, DKA. Patient was lying in bed, on room air, NAD, denies any pain or discomfort, patient is oriented x1, ROS not able in detail due to cognition status. Physical Exam Physical Exam: GENERAL: awake. NAD, on RA. Appears ill/weak/frail. HEENT: No pallor, no icterus. Pupils equal, round and reactive to light. Oral mucosa moist. NECK: No JVD, no neck masses. HEART: S1 and S2 heard. Regular rate and rhythm. No murmur, no gallop. RESPIRATORY SYSTEM: Normal AP diameter. No accessory muscle use. No wheezing, no crackles. decreased breath sounds/poor effort. ABDOMEN: Soft, bowel sounds present, nontender, no distention. CENTRAL NERVOUS SYSTEM: No facial droop. Speech is clear. Obeys simple commands. Moves extremities. EXTREMITIES: No edema, no erythema seen. Results & Data Results & Data ([facility]) Vital Signs (Past 12 Hours) Vital Signs Temp Pulse Pulse Resp BP BP Pulse Ox 08/07/22 15:09 65 18 95/58 L 97 08/07/22 14:12 36.6 C 66 18 99/63 L 95 08/07/22 10:21 08/07/22 09:00 36.5 C 71 18 107/67 97 08/07/22 07:52 36.5 C 60 17 90/50 L 94 08/07/22 07:00 36.5 C 69 18 98/61 L 95 08/07/22 06:16 36.5 C 63 18 114/73 93 08/07/22 06:49 36.6 C 67 18 99/61 L 95 O2 Del Method 08/07/22 15:09 Room Air 08/07/22 14:12 Room Air 08/07/22 10:21 Room Air 08/07/22 09:00 Room Air 08/07/22 07:52 Room Air 08/07/22 07:00 Room Air 08/07/22 06:16 Room Air 08/07/22 06:49 Room Air
[2022-08-07] MEDS ORDERED: traMADol HCL 50 MG TABLET PO ONE (16:33)
[2022-08-07] MEDS ORDERED: oxyCODONE HCL IR 5 MG TAB (IMMEDIATE RELEASE) PO STA (20:24)
[2022-08-08] MEDS: ACETAMINOPHEN 325 MG TAB PO PRN ×2 (01:32→05:37)
[2022-08-08 06:34] LABS: Hematocrit (blood only) 24.7 % (34.1-44.9); Mean Corpuscular Hemoglobin 27.1 pg (25.0-34.0); Mean Corpuscular Hgb Conc 32.4 g/dL (32.0-36.0); Mean Corpuscular Volume 83.7 fL (80.0-100.0); Mean Platelet Volume 9.8 fL (9.4-12.3); Platelet Count 440 K/uL (130-400); RDW Coefficient of Variation 14.6 % (11.5-14.5); RDW Standard Deviation 44.6 fL (36.4-46.3); Red Blood Count 2.95 M/uL (3.93-5.22); White Blood Count 7.14 K/ul (4.8-10.8)
[2022-08-08] MEDS: CAPSAICIN CR 0.075% 60 GM TUBE EXT PRN ×2 (06:44→21:03)
[2022-08-08 07:13] LABS: Calcium 7.6 mg/dl (8.5-10.1); Creatinine Clr Calc Pharmacy 48.4 ml/min; Est GFR (Non-African American) 63.8 ml/min; Magnesium 1.9 mg/dl (1.7-2.4); Phosphorus 3.9 mg/dl (2.5-4.9); Potassium 4.6 mmol/L (3.5-5.1)
[2022-08-08] MEDS ORDERED: KETOROLAC TROMETHAMINE 15 MG/ML VIAL IV ONE (08:13)
[2022-08-08] MEDS: APIXABAN 5 MG TABLET PO SCH ×2 (08:21→20:40)
[2022-08-08] MEDS: CEFDINIR 300 MG CAP PO SCH ×2 (08:22→20:40)
[2022-08-08] MEDS: ADVANCED PROBIOTIC 1250 MG CAPSULE PO SCH (08:22)
[2022-08-08] MEDS: MAGNESIUM OXIDE 400 MG TAB PO SCH (08:23)
[2022-08-08] MEDS: CHOLECALCIFEROL 1,000 UNITS 25 MCG TAB PO SCH (08:24)
[2022-08-08] MEDS: AMIODARONE 200 MG TAB PO SCH (08:24)
[2022-08-08] MEDS: ATORVASTATIN 10 MG TAB PO SCH (08:24)
[2022-08-08] MEDS: POTASSIUM CHLORIDE CRTAB 20 MEQ TABCR PO SCH (08:24)
[2022-08-08] MEDS: METOPROLOL TARTRATE 25 MG TAB PO SCH ×2 (08:24→20:40)
[2022-08-08] MEDS: INSULIN ASPART PER UNIT SC SCH ×4 (09:35→20:59)
[2022-08-08] MEDS: LANTUS PER UNIT CHARGE SQ SCH ×2 (09:39→20:59)
--- NOTE | 2022-08-08 14:58 | Hospitalist Progress Note ---
Date of Service August 08, 2022 Assessment & Plan (1) Gram-negative bacteremia: Plan This is an 82-year-old female with PMH DM II, paroxysmal atrial fibrillation on Eliquis, HLD, depression and other medical problems listed below who presents to the ER after being found unresponsive at home and was found to have acute metabolic encephalopathy in setting of septic shock and metabolic acidosis 2/2 DKA. She is being managed for the following: Septic shock: Gram-negative bacteremia Complicated UTI Admitting CT abdomen pelvis with asymmetric right-sided perinephric stranding/inflammation with tiny foci of nonspecific gas within the right renal pelvis. Correlate clinically and with urinalysis for evidence of right-sided pyelonephritis. 07/27 urine culture and blood culture positive for Klebsiella pneumoniae, pansensitive Patient is a status post pressor support, currently hemodynamically stable, continue with antibiotic for total of 14 days [last day of antibiotic course to be 08/09/2021] Acute metabolic encephalopathy: Admitting CT head with no acute findings. ANTONIA resolved-Multifactorial given septic shock 2/2 pyelo with gram negative bacteremia and DKA Currently alert and awake, oriented x1. Continue to treat bacteremia/UTI. Speech therapy evaluated for some pocketing noted over the hospital admission, recommends pured diet with thin liquids and aspiration precaution and mouth care. Also reflux precaution. DKA (diabetic ketoacidosis): Status posttreatment. Now off insulin drip. She is eating. Continue sliding scale insulin. Speech therapy BLE pain/deconditioning: PT/OT, pelvic x-ray with no acute finding. Elevated creatinine kinase level: Secondary to sepsis and critical illness. No further work-up. Elevated troponin: Likely secondary to demand ischemia and sepsis. Acute kidney injury: In the setting of severe dehydration/infection/DKA. Resolved after IV fluid resuscitation. Thrombocytopenia: Likely secondary to sepsis. Improved. Other chronic medical conditions: DM, paroxysmal A. fib --continue home meds as able. DVT prophylaxis: Eliquis CODE STATUS: DNR/DNI Disposition: Medically stable for rehab when bed is available. Admission and Anticipated Discharge Date Admission Date: July 27, 2022 Subjective Patient seen and examined bedside as a follow-up of septic shock, complicated UTI, gram-negative bacteremia, acute metabolic encephalopathy, DKA. Patient was lying in bed, on room air, NAD, denies any pain or discomfort, patient is oriented x1, ROS not able in detail due to cognition status. Physical Exam Physical Exam: GENERAL: sleepy. NAD, on RA. Appears chronically ill. HEENT: No pallor, no icterus. Pupils equal, round and reactive to light. Oral mucosa moist. NECK: No JVD, no neck masses. HEART: S1 and S2 heard. Regular rate and rhythm. No murmur, no gallop. RESPIRATORY SYSTEM: Normal AP diameter. No accessory muscle use. No wheezing, no crackles. decreased breath sounds/poor effort. ABDOMEN: Soft, bowel sounds present, nontender, no distention. CENTRAL NERVOUS SYSTEM: No facial droop. Speech is clear. Obeys simple commands. Moves extremities. EXTREMITIES: No edema, no erythema seen. Results & Data Results & Data ([facility]) Vital Signs (Past 12 Hours) Vital Signs Temp Pulse Resp BP BP Pulse Ox O2 Del Method 08/08/22 08:00 Room Air 08/08/22 08:50 36.8 C 69 19 101/59 L 94 Room Air 08/08/22 07:42 36.8 C 70 20 100/60 94 Room Air 08/08/22 07:37 36.9 C 71 16 95/55 L 91 Room Air
[2022-08-08] MEDS: HYDROCODONE/ACETAMOPHEN 5/325MG TAB PO PRN (16:04)
[2022-08-08] MEDS: DOCUSATE SODIUM 100 MG CAP PO PRN (20:50)
[2022-08-08] MEDS: POLYETHYLENE (MIRALAX) 17 GM PACK PO PRN (20:50)
--- NOTE | 2022-08-08 22:06 | Electrocardiogram Report ---
Test Reason : Blood Pressure : / mmHG Vent. Rate : 064 BPM Atrial Rate : 063 BPM P-R Int : 198 ms QRS Dur : 104 ms QT Int : 438 ms P-R-T Axes : 000 -40 011 degrees QTc Int : 451 ms Normal sinus rhythm Left axis deviation Low voltage QRS Incomplete right bundle branch block Cannot rule out Inferior infarct , age undetermined Cannot rule out Anterior infarct , age undetermined Nonspecific T wave abnormality Abnormal ECG When compared with ECG of 31-JUL-2022 07:06, Sinus rhythm has replaced Atrial fibrillation Vent. rate has decreased by 93 bpm Confirmed by Josiah Esposito ([id number]) on 08/08/2022 10:06:28 PM Referred By: REFERRED SELF Confirmed By:Josiah Esposito
[2022-08-09] MEDS: HYDROCODONE/ACETAMOPHEN 5/325MG TAB PO PRN ×2 (05:41→21:31)
[2022-08-09 07:42] LABS: Hematocrit (blood only) 24.6 % (34.1-44.9); Hemoglobin 7.8 g/dl (12.0-16.0)
[2022-08-09] MEDS: CARBOHYDRATES FOR HYPOGLYCEMIA PO PRN (08:25)
[2022-08-09] MEDS: APIXABAN 5 MG TABLET PO SCH ×2 (08:57→21:33)
[2022-08-09] MEDS: ATORVASTATIN 10 MG TAB PO SCH (09:00)
[2022-08-09] MEDS: CEFDINIR 300 MG CAP PO SCH (09:01)
[2022-08-09] MEDS: CHOLECALCIFEROL 1,000 UNITS 25 MCG TAB PO SCH (09:01)
[2022-08-09] MEDS: ADVANCED PROBIOTIC 1250 MG CAPSULE PO SCH (09:02)
[2022-08-09] MEDS: MAGNESIUM OXIDE 400 MG TAB PO SCH (09:02)
[2022-08-09] MEDS: METOPROLOL TARTRATE 25 MG TAB PO SCH ×2 (09:03→21:34)
[2022-08-09] MEDS: POTASSIUM CHLORIDE CRTAB 20 MEQ TABCR PO SCH (09:16)
[2022-08-09] MEDS: LANTUS PER UNIT CHARGE SQ SCH ×2 (09:17→21:31)
[2022-08-09] MEDS: INSULIN ASPART PER UNIT SC SCH ×4 (09:17→21:30)
[2022-08-09] MEDS: AMIODARONE 200 MG TAB PO SCH (09:21)
[2022-08-09 10:41] LABS: Ferritin 82.6 ng/ml (8-388)
[2022-08-09 10:49] LABS: Vitamin B12 > 1500 pg/ml (180-914)
[2022-08-09] MEDS: ACETAMINOPHEN 325 MG TAB PO PRN (13:21)
[2022-08-09 14:56] LABS: Hematocrit (blood only) 29.4 % (34.1-44.9); Hemoglobin 9.2 g/dl (12.0-16.0)
--- NOTE | 2022-08-09 16:13 | Hospitalist Progress Note ---
Date of Service August 09, 2022 Assessment & Plan (1) Gram-negative bacteremia: Plan This is an 82-year-old female with PMH DM II, paroxysmal atrial fibrillation on Eliquis, HLD, depression and other medical problems listed below who presents to the ER after being found unresponsive at home and was found to have acute metabolic encephalopathy in setting of septic shock and metabolic acidosis 2/2 DKA. She is being managed for the following: Septic shock: Gram-negative bacteremia Complicated UTI Admitting CT abdomen pelvis with asymmetric right-sided perinephric stranding/inflammation with tiny foci of nonspecific gas within the right renal pelvis. Correlate clinically and with urinalysis for evidence of right-sided pyelonephritis. 07/27 urine culture and blood culture positive for Klebsiella pneumoniae, pansensitive Patient is a status post pressor support, currently hemodynamically stable, continue with antibiotic for total of 14 days [last day of antibiotic course to be 08/09/2021] Acute metabolic encephalopathy: Admitting CT head with no acute findings. ANTONIA resolved-Multifactorial given septic shock 2/2 pyelo with gram negative bacteremia and DKA Currently alert and awake, oriented x1. Continue to treat bacteremia/UTI. Speech therapy evaluated for some pocketing noted over the hospital admission, recommends pured diet with thin liquids and aspiration precaution and mouth care. Also reflux precaution. DKA (diabetic ketoacidosis): Status posttreatment. Now off insulin drip. She is eating. Continue sliding scale insulin. Speech therapy BLE pain/deconditioning: PT/OT, pelvic x-ray with no acute finding. Elevated creatinine kinase level: Secondary to sepsis and critical illness. No further work-up. Elevated troponin: Likely secondary to demand ischemia and sepsis. Acute kidney injury: In the setting of severe dehydration/infection/DKA. Resolved after IV fluid resuscitation. Thrombocytopenia: Likely secondary to sepsis. Improved. Anemia, likely chronic: GRACIELA on iron profile; iron and folic acid supplement started 08/09. Other chronic medical conditions: DM, paroxysmal A. fib --continue home meds as able. DVT prophylaxis: Eliquis CODE STATUS: DNR/DNI Disposition: Medically stable for rehab when bed is available and when Hb deemed stable. Admission and Anticipated Discharge Date Admission Date: July 27, 2022 Subjective Patient seen and examined bedside as a follow-up of septic shock, complicated UTI, gram-negative bacteremia, acute metabolic encephalopathy, DKA. Patient was lying in bed, on room air, NAD, reports generalized body pain but doesn't appear in distress, patient is oriented x1, ROS not able in detail due to cognition status. Physical Exam Physical Exam: GENERAL: sleepy. NAD, on RA. Appears chronically ill. HEENT: No pallor, no icterus. Pupils equal, round and reactive to light. Oral mucosa moist. NECK: No JVD, no neck masses. HEART: S1 and S2 heard. Regular rate and rhythm. No murmur, no gallop. RESPIRATORY SYSTEM: Normal AP diameter. No accessory muscle use. No wheezing, no crackles. decreased breath sounds/poor effort. ABDOMEN: Soft, bowel sounds present, nontender, no distention. CENTRAL NERVOUS SYSTEM: No facial droop. Speech is clear. Obeys simple commands. Moves extremities. EXTREMITIES: No edema, no erythema seen. Results & Data Results & Data ([facility]) Vital Signs (Past 12 Hours) Vital Signs Temp Pulse Resp BP BP Pulse Ox O2 Del Method 08/09/22 15:59 36.8 C 66 14 89/53 L 84/51 L 93 Room Air 08/09/22 07:00 08/09/22 10:00 68 107/63 08/09/22 08:38 Room Air 08/09/22 07:50 37.2 C 65 18 95/57 L 93/58 L 95 Room Air O2 Del Method O2 Flow Rate 08/09/22 15:59 08/09/22 07:00 Room Air 95 08/09/22 10:00 08/09/22 08:38 08/09/22 07:50
[2022-08-09] MEDS ORDERED: SODIUM CHLORIDE 0.9% 500 ML IV SCH (16:30)
[2022-08-09] MEDS: DOCUSATE SODIUM 100 MG CAP PO SCH ×2 (17:45→21:32)
[2022-08-09] MEDS: FOLIC ACID 1 MG TAB PO SCH (17:46)
[2022-08-09] MEDS: FERROUS GLUCONATE 324 MG TAB PO SCH (17:46)
[2022-08-10 06:56] LABS: Hematocrit (blood only) 26.9 % (34.1-44.9); Hemoglobin 8.5 g/dl (12.0-16.0)
[2022-08-10] MEDS: AMIODARONE 200 MG TAB PO SCH (09:07)
[2022-08-10] MEDS: ATORVASTATIN 10 MG TAB PO SCH (09:08)
[2022-08-10] MEDS: APIXABAN 5 MG TABLET PO SCH ×2 (09:08→20:31)
[2022-08-10] MEDS: DOCUSATE SODIUM 100 MG CAP PO SCH ×2 (09:09→20:31)
[2022-08-10] MEDS: CHOLECALCIFEROL 1,000 UNITS 25 MCG TAB PO SCH (09:09)
[2022-08-10] MEDS: FERROUS GLUCONATE 324 MG TAB PO SCH (09:10)
[2022-08-10] MEDS: ADVANCED PROBIOTIC 1250 MG CAPSULE PO SCH (09:10)
[2022-08-10] MEDS: MAGNESIUM OXIDE 400 MG TAB PO SCH (09:11)
[2022-08-10] MEDS: METOPROLOL TARTRATE 25 MG TAB PO SCH ×2 (09:11→20:31)
[2022-08-10] MEDS: POLYETHYLENE (MIRALAX) 17 GM PACK PO PRN (09:12)
[2022-08-10] MEDS: INSULIN ASPART PER UNIT SC SCH ×4 (09:19→21:03)
[2022-08-10] MEDS: LANTUS PER UNIT CHARGE SQ SCH ×2 (09:20→21:02)
[2022-08-10] MEDS: POTASSIUM CHLORIDE CRTAB 20 MEQ TABCR PO SCH (09:21)
[2022-08-10] MEDS: FOLIC ACID 1 MG TAB PO SCH (12:19)
[2022-08-10] MEDS: ACETAMINOPHEN 325 MG TAB PO PRN (14:29)
--- NOTE | 2022-08-10 14:42 | Hospitalist Progress Note ---
Date of Service August 10, 2022 Assessment & Plan (1) Gram-negative bacteremia: Plan This is an 82-year-old female with PMH DM II, paroxysmal atrial fibrillation on Eliquis, HLD, depression and other medical problems listed below who presents to the ER after being found unresponsive at home and was found to have acute metabolic encephalopathy in setting of septic shock and metabolic acidosis 2/2 DKA. She is being managed for the following: Septic shock: Gram-negative bacteremia Complicated UTI Admitting CT abdomen pelvis with asymmetric right-sided perinephric stranding/inflammation with tiny foci of nonspecific gas within the right renal pelvis. Correlate clinically and with urinalysis for evidence of right-sided pyelonephritis. 07/27 urine culture and blood culture positive for Klebsiella pneumoniae, pansensitive Patient is a status post pressor support, currently hemodynamically stable, s/p 14 day antibiotic course [last day of antibiotic course was 08/09/2021] Acute metabolic encephalopathy: Admitting CT head with no acute findings. ANTONIA resolved-Multifactorial given septic shock 2/2 pyelo with gram negative bacteremia and DKA Currently alert and awake, oriented x1. Speech therapy evaluated for some pocketing noted over the hospital admission, recommends pured diet with thin liquids and aspiration precaution and mouth care. Also reflux precaution. DKA (diabetic ketoacidosis): Status posttreatment. Now off insulin drip. She is eating. Continue sliding scale insulin. Speech therapy BLE pain/deconditioning: PT/OT, pelvic x-ray with no acute finding. Elevated creatinine kinase level: Secondary to sepsis and critical illness. No further work-up. Elevated troponin: Likely secondary to demand ischemia and sepsis. Acute kidney injury: In the setting of severe dehydration/infection/DKA. Resolved after IV fluid resuscitation. Thrombocytopenia: Likely secondary to sepsis. Improved. Anemia, likely chronic: GRACIELA on iron profile; iron and folic acid supplement started 08/09. Hb stable Other chronic medical conditions: DM, paroxysmal A. fib --continue home meds as able. DVT prophylaxis: Eliquis CODE STATUS: DNR/DNI Disposition: Medically stable for rehab when bed is available. Admission and Anticipated Discharge Date Admission Date: July 27, 2022 Subjective Patient seen and examined bedside as a follow-up of septic shock, complicated UTI, gram-negative bacteremia, acute metabolic encephalopathy, DKA. Patient was lying in bed, on room air, NAD, reports generalized body pain but doesn't appear in distress, patient is oriented x1, ROS not able in detail due to cognition status. Pt is declining PT per RN. Physical Exam Physical Exam: GENERAL: sleepy. NAD, on RA. Appears chronically ill. HEENT: No pallor, no icterus. Pupils equal, round and reactive to light. Oral mucosa moist. NECK: No JVD, no neck masses. HEART: S1 and S2 heard. Regular rate and rhythm. No murmur, no gallop. RESPIRATORY SYSTEM: Normal AP diameter. No accessory muscle use. No wheezing, no crackles. decreased breath sounds/poor effort. ABDOMEN: Soft, bowel sounds present, nontender, no distention. CENTRAL NERVOUS SYSTEM: No facial droop. Speech is clear. Obeys simple commands. Moves extremities. EXTREMITIES: No edema, no erythema seen. Results & Data Results & Data ([facility]) Vital Signs (Past 12 Hours) Vital Signs Temp Pulse Resp BP Pulse Ox Pulse Ox O2 Del Method 08/10/22 07:00 94 08/10/22 08:00 Room Air 08/10/22 07:28 36.8 C 72 16 128/79 94 Room Air O2 Del Method 08/10/22 07:00 Room Air 08/10/22 08:00 08/10/22 07:28
--- NOTE | 2022-08-10 15:15 | XRay Report ---
XR tibia fibula LT 2V CLINICAL HISTORY: left leg pain, pt believes she has fracture TECHNIQUE: 2 radiographic views of the left leg were obtained. Comparison: Comparison is made to left ankle radiograph 07/16/2021 FINDINGS: There is no evidence of an acute fracture. Mild degenerative changes are seen in the visualized joint s. Plantar and Achilles enthesophytes are seen. No soft tissue abnormality is seen. IMPRESSION: No evidence of acute osseous injury. ACT 112: Negative or not required by law. Electronically signed by: Preston Carrasquillo M.D. 08/10/2022 3:14 PM
[2022-08-10] MEDS: HYDROCODONE/ACETAMOPHEN 5/325MG TAB PO PRN (23:42)
[2022-08-11] MEDS: ATORVASTATIN 10 MG TAB PO SCH (08:40)
[2022-08-11] MEDS: MAGNESIUM OXIDE 400 MG TAB PO SCH (08:40)
[2022-08-11] MEDS: AMIODARONE 200 MG TAB PO SCH (08:40)
[2022-08-11] MEDS: APIXABAN 5 MG TABLET PO SCH ×2 (08:40→20:55)
[2022-08-11] MEDS: DOCUSATE SODIUM 100 MG CAP PO SCH ×2 (08:40→20:55)
[2022-08-11] MEDS: FOLIC ACID 1 MG TAB PO SCH (08:40)
[2022-08-11] MEDS: FERROUS GLUCONATE 324 MG TAB PO SCH (08:41)
[2022-08-11] MEDS: CHOLECALCIFEROL 1,000 UNITS 25 MCG TAB PO SCH (08:41)
[2022-08-11] MEDS: ADVANCED PROBIOTIC 1250 MG CAPSULE PO SCH (08:41)
[2022-08-11] MEDS: METOPROLOL TARTRATE 25 MG TAB PO SCH ×2 (08:41→20:55)
[2022-08-11] MEDS: POTASSIUM CHLORIDE CRTAB 20 MEQ TABCR PO SCH (08:42)
[2022-08-11] MEDS: INSULIN ASPART PER UNIT SC SCH ×4 (09:11→21:02)
[2022-08-11] MEDS: LANTUS PER UNIT CHARGE SQ SCH ×2 (09:12→21:02)
--- NOTE | 2022-08-11 16:18 | Hospitalist Progress Note ---
Date of Service August 11, 2022 Assessment & Plan (1) Gram-negative bacteremia: Plan This is an 82-year-old female with PMH DM II, paroxysmal atrial fibrillation on Eliquis, HLD, depression and other medical problems listed below who presents to the ER after being found unresponsive at home and was found to have acute metabolic encephalopathy in setting of septic shock and metabolic acidosis 2/2 DKA. She is being managed for the following: Septic shock: Gram-negative bacteremia Complicated UTI Admitting CT abdomen pelvis with asymmetric right-sided perinephric stranding/inflammation with tiny foci of nonspecific gas within the right renal pelvis. Correlate clinically and with urinalysis for evidence of right-sided pyelonephritis. 07/27 urine culture and blood culture positive for Klebsiella pneumoniae, pansensitive Patient is a status post pressor support, currently hemodynamically stable, s/p 14 day antibiotic course [last day of antibiotic course was 08/09/2021] Acute metabolic encephalopathy: Admitting CT head with no acute findings. ANTONIA resolved-Multifactorial given septic shock 2/2 pyelo with gram negative bacteremia and DKA Currently alert and awake, oriented x1. Speech therapy evaluated for some pocketing noted over the hospital admission, recommends pured diet with thin liquids and aspiration precaution and mouth care. Also reflux precaution. DKA (diabetic ketoacidosis): Status posttreatment. Now off insulin drip. She is eating. Continue sliding scale insulin. Speech therapy BLE pain/deconditioning: PT/OT, pelvic x-ray with no acute finding. Elevated creatinine kinase level: Secondary to sepsis and critical illness. No further work-up. Elevated troponin: Likely secondary to demand ischemia and sepsis. Acute kidney injury: In the setting of severe dehydration/infection/DKA. Resolved after IV fluid resuscitation. Thrombocytopenia: Likely secondary to sepsis. Improved. Anemia, likely chronic: GRACIELA on iron profile; iron and folic acid supplement started 08/09. Hb stable Other chronic medical conditions: DM, paroxysmal A. fib --continue home meds as able. DVT prophylaxis: Eliquis CODE STATUS: DNR/DNI Disposition: Medically stable for rehab when bed is available. Admission and Anticipated Discharge Date Admission Date: July 27, 2022 Subjective Patient seen and examined bedside as a follow-up of septic shock, complicated UTI, gram-negative bacteremia, acute metabolic encephalopathy, DKA. Patient was lying in bed, on room air, NAD, reports no pain today, patient is oriented x1, ROS not able in detail due to cognition status. Physical Exam Physical Exam: GENERAL: sleepy. NAD, on RA. Appears chronically ill. HEENT: No pallor, no icterus. Pupils equal, round and reactive to light. Oral mucosa moist. NECK: No JVD, no neck masses. HEART: S1 and S2 heard. Regular rate and rhythm. No murmur, no gallop. RESPIRATORY SYSTEM: Normal AP diameter. No accessory muscle use. No wheezing, no crackles. decreased breath sounds/poor effort. ABDOMEN: Soft, bowel sounds present, nontender, no distention. CENTRAL NERVOUS SYSTEM: No facial droop. Speech is clear. Obeys simple commands. Moves extremities. EXTREMITIES: No edema, no erythema seen. Results & Data Results & Data ([facility]) Vital Signs (Past 12 Hours) Vital Signs Temp Pulse Resp BP BP Pulse Ox O2 Del Method 08/11/22 15:23 37.5 C 67 16 103/63 95 Room Air 08/11/22 09:00 Room Air 08/11/22 07:23 37.2 C 64 16 100/63 94 Room Air
[2022-08-11] MEDS: ACETAMINOPHEN 325 MG TAB PO PRN (18:26)
[2022-08-11] MEDS: HYDROCODONE/ACETAMOPHEN 5/325MG TAB PO PRN (20:59)
[2022-08-12] MEDS: ACETAMINOPHEN 325 MG TAB PO PRN ×2 (03:00→20:22)
[2022-08-12] MEDS: APIXABAN 5 MG TABLET PO SCH ×2 (09:10→19:53)
[2022-08-12] MEDS: INSULIN ASPART PER UNIT SC SCH ×4 (09:10→21:11)
[2022-08-12] MEDS: FOLIC ACID 1 MG TAB PO SCH (09:11)
[2022-08-12] MEDS: ATORVASTATIN 10 MG TAB PO SCH (09:11)
[2022-08-12] MEDS: CHOLECALCIFEROL 1,000 UNITS 25 MCG TAB PO SCH (09:11)
[2022-08-12] MEDS: FERROUS GLUCONATE 324 MG TAB PO SCH (09:12)
[2022-08-12] MEDS: ADVANCED PROBIOTIC 1250 MG CAPSULE PO SCH (09:12)
[2022-08-12] MEDS: MAGNESIUM OXIDE 400 MG TAB PO SCH (09:12)
[2022-08-12] MEDS: LANTUS PER UNIT CHARGE SQ SCH ×2 (09:16→21:11)
[2022-08-12] MEDS: AMIODARONE 200 MG TAB PO SCH (09:17)
[2022-08-12] MEDS: DOCUSATE SODIUM 100 MG CAP PO SCH ×2 (09:20→19:48)
[2022-08-12] MEDS: POTASSIUM CHLORIDE CRTAB 20 MEQ TABCR PO SCH (09:33)
[2022-08-12] MEDS: METOPROLOL TARTRATE 25 MG TAB PO SCH ×2 (10:07→19:53)
[2022-08-12] MEDS: HYDROCODONE/ACETAMOPHEN 5/325MG TAB PO PRN ×2 (10:55→22:30)
--- NOTE | 2022-08-12 17:25 | Hospitalist Progress Note ---
Date of Service August 12, 2022 Assessment & Plan (1) Gram-negative bacteremia: Plan This is an 82-year-old female with PMH DM II, paroxysmal atrial fibrillation on Eliquis, HLD, depression and other medical problems listed below who presents to the ER after being found unresponsive at home and was found to have acute metabolic encephalopathy in setting of septic shock and metabolic acidosis 2/2 DKA. She is being managed for the following: Septic shock: Gram-negative bacteremia Complicated UTI Admitting CT abdomen pelvis with asymmetric right-sided perinephric stranding/inflammation with tiny foci of nonspecific gas within the right renal pelvis. Correlate clinically and with urinalysis for evidence of right-sided pyelonephritis. 07/27 urine culture and blood culture positive for Klebsiella pneumoniae, pansensitive Patient is a status post pressor support, currently hemodynamically stable, s/p 14 day antibiotic course [last day of antibiotic course was 08/09/2021] Acute metabolic encephalopathy: Admitting CT head with no acute findings. ANTONIA resolved-Multifactorial given septic shock 2/2 pyelo with gram negative bacteremia and DKA Currently alert and awake, oriented x1. Speech therapy evaluated for some pocketing noted over the hospital admission, recommends pured diet with thin liquids and aspiration precaution and mouth care. Also reflux precaution. DKA (diabetic ketoacidosis): Status posttreatment. Now off insulin drip. She is eating. Continue sliding scale insulin. Speech therapy BLE pain/deconditioning: PT/OT, pelvic x-ray with no acute finding. Elevated creatinine kinase level: Secondary to sepsis and critical illness. No further work-up. Elevated troponin: Likely secondary to demand ischemia and sepsis. Acute kidney injury: In the setting of severe dehydration/infection/DKA. Resolved after IV fluid resuscitation. Thrombocytopenia: Likely secondary to sepsis. Improved. Anemia, likely chronic: GRACIELA on iron profile; iron and folic acid supplement started 08/09. Hb stable Other chronic medical conditions: DM, paroxysmal A. fib --continue home meds as able. DVT prophylaxis: Eliquis CODE STATUS: DNR/DNI Disposition: Medically stable for rehab when bed is available. Likely dc on tuesday. Admission and Anticipated Discharge Date Admission Date: July 27, 2022 Subjective Patient seen and examined bedside as a follow-up of septic shock, complicated UTI, gram-negative bacteremia, acute metabolic encephalopathy, DKA. Patient was lying in bed, on room air, NAD, reports no pain today, patient is oriented x1, ROS not able in detail due to cognition status. Physical Exam Physical Exam: GENERAL: sleepy. NAD, on RA. Appears chronically ill. HEENT: No pallor, no icterus. Pupils equal, round and reactive to light. Oral mucosa moist. NECK: No JVD, no neck masses. HEART: S1 and S2 heard. Regular rate and rhythm. No murmur, no gallop. RESPIRATORY SYSTEM: Normal AP diameter. No accessory muscle use. No wheezing, no crackles. decreased breath sounds/poor effort. ABDOMEN: Soft, bowel sounds present, nontender, no distention. CENTRAL NERVOUS SYSTEM: No facial droop. Speech is clear. Obeys simple commands. Moves extremities. EXTREMITIES: No edema, no erythema seen. Results & Data Results & Data ([facility]) Vital Signs (Past 12 Hours) Vital Signs Temp Pulse Resp BP BP Pulse Ox Pulse Ox 08/12/22 15:13 36.8 C 66 18 101/61 98 08/12/22 07:25 08/12/22 08:00 96 08/12/22 09:22 66 100/60 08/12/22 08:03 36.6 C 58 L 16 102/55 L 96 O2 Del Method O2 Del Method 08/12/22 15:13 Room Air 08/12/22 07:25 Room Air 08/12/22 08:00 Room Air 08/12/22 09:22 08/12/22 08:03 Room Air
[2022-08-12] MEDS: DICLOFENAC SOD 1% GEL 100 GM TUBE EXT PRN (19:52)
[2022-08-13] MEDS: DOCUSATE SODIUM 100 MG CAP PO SCH ×2 (09:14→19:51)
[2022-08-13] MEDS: ADVANCED PROBIOTIC 1250 MG CAPSULE PO SCH (09:14)
[2022-08-13] MEDS: AMIODARONE 200 MG TAB PO SCH (09:15)
[2022-08-13] MEDS: FOLIC ACID 1 MG TAB PO SCH (09:15)
[2022-08-13] MEDS: CHOLECALCIFEROL 1,000 UNITS 25 MCG TAB PO SCH (09:15)
[2022-08-13] MEDS: APIXABAN 5 MG TABLET PO SCH ×2 (09:16→19:51)
[2022-08-13] MEDS: MAGNESIUM OXIDE 400 MG TAB PO SCH (09:16)
[2022-08-13] MEDS: FERROUS GLUCONATE 324 MG TAB PO SCH (09:16)
[2022-08-13] MEDS: LANTUS PER UNIT CHARGE SQ SCH ×2 (09:16→21:14)
[2022-08-13] MEDS: POTASSIUM CHLORIDE CRTAB 20 MEQ TABCR PO SCH (09:16)
[2022-08-13] MEDS: ATORVASTATIN 10 MG TAB PO SCH (09:16)
[2022-08-13] MEDS: INSULIN ASPART PER UNIT SC SCH ×4 (09:17→21:14)
[2022-08-13] MEDS: METOPROLOL TARTRATE 25 MG TAB PO SCH ×2 (09:18→19:51)
[2022-08-13] MEDS: HYDROCODONE/ACETAMOPHEN 5/325MG TAB PO PRN (11:43)
--- NOTE | 2022-08-13 16:02 | Hospitalist Progress Note ---
Date of Service August 13, 2022 Assessment & Plan (1) Gram-negative bacteremia: Plan This is an 82-year-old female with PMH DM II, paroxysmal atrial fibrillation on Eliquis, HLD, depression and other medical problems listed below who presents to the ER after being found unresponsive at home and was found to have acute metabolic encephalopathy in setting of septic shock and metabolic acidosis 2/2 DKA. She is being managed for the following: Septic shock: Gram-negative bacteremia Complicated UTI Admitting CT abdomen pelvis with asymmetric right-sided perinephric stranding/inflammation with tiny foci of nonspecific gas within the right renal pelvis. Correlate clinically and with urinalysis for evidence of right-sided pyelonephritis. 07/27 urine culture and blood culture positive for Klebsiella pneumoniae, pansensitive Patient is a status post pressor support, currently hemodynamically stable, s/p 14 day antibiotic course [last day of antibiotic course was 08/09/2021] Acute metabolic encephalopathy: Admitting CT head with no acute findings. ANTONIA resolved-Multifactorial given septic shock 2/2 pyelo with gram negative bacteremia and DKA Currently alert and awake, oriented x1. Speech therapy evaluated for some pocketing noted over the hospital admission, recommends pured diet with thin liquids and aspiration precaution and mouth care. Also reflux precaution. DKA (diabetic ketoacidosis): Status posttreatment. Now off insulin drip. She is eating. Continue sliding scale insulin. Speech therapy BLE pain/deconditioning: PT/OT, pelvic x-ray with no acute finding. Elevated creatinine kinase level: Secondary to sepsis and critical illness. No further work-up. Elevated troponin: Likely secondary to demand ischemia and sepsis. Acute kidney injury: In the setting of severe dehydration/infection/DKA. Resolved after IV fluid resuscitation. Thrombocytopenia: Likely secondary to sepsis. Improved. Anemia, likely chronic: GRACIELA on iron profile; iron and folic acid supplement started 08/09. Hb stable Other chronic medical conditions: DM, paroxysmal A. fib --continue home meds as able. DVT prophylaxis: Eliquis CODE STATUS: DNR/DNI Disposition: Medically stable for rehab when bed is available. Likely dc on tuesday. Admission and Anticipated Discharge Date Admission Date: July 27, 2022 Subjective Patient seen and examined bedside as a follow-up of septic shock, complicated UTI, gram-negative bacteremia, acute metabolic encephalopathy, DKA. Patient was lying in bed, on room air, NAD, reports no pain today, patient is oriented x1, ROS not able in detail due to cognition status. Physical Exam Physical Exam: GENERAL: sleepy. NAD, on RA. Appears chronically ill. HEENT: No pallor, no icterus. Pupils equal, round and reactive to light. Oral mucosa moist. NECK: No JVD, no neck masses. HEART: S1 and S2 heard. Regular rate and rhythm. No murmur, no gallop. RESPIRATORY SYSTEM: Normal AP diameter. No accessory muscle use. No wheezing, no crackles. decreased breath sounds/poor effort. ABDOMEN: Soft, bowel sounds present, nontender, no distention. CENTRAL NERVOUS SYSTEM: No facial droop. Speech is clear. Obeys simple commands. Moves extremities. EXTREMITIES: No edema, no erythema seen. Results & Data Results & Data ([facility]) Vital Signs (Past 12 Hours) Vital Signs Temp Pulse Resp BP BP Pulse Ox Pulse Ox 08/13/22 15:32 36.7 C 59 L 16 104/65 94 08/13/22 09:15 63 106/67 08/13/22 08:00 08/13/22 08:11 95 08/13/22 07:13 36.5 C 58 L 16 107/65 95 O2 Del Method O2 Del Method 08/13/22 15:32 Room Air 08/13/22 09:15 08/13/22 08:00 Room Air 08/13/22 08:11 Room Air 08/13/22 07:13 Room Air
[2022-08-13] MEDS: DICLOFENAC SOD 1% GEL 100 GM TUBE EXT PRN (16:58)
[2022-08-13] MEDS: ACETAMINOPHEN 325 MG TAB PO PRN (22:09)
[2022-08-14] MEDS: HYDROCODONE/ACETAMOPHEN 5/325MG TAB PO PRN (03:44)
[2022-08-14] MEDS: INSULIN ASPART PER UNIT SC SCH ×4 (09:16→20:53)
[2022-08-14] MEDS: LANTUS PER UNIT CHARGE SQ SCH ×2 (09:16→20:54)
[2022-08-14] MEDS: APIXABAN 5 MG TABLET PO SCH ×2 (09:17→20:38)
[2022-08-14] MEDS: METOPROLOL TARTRATE 25 MG TAB PO SCH ×2 (09:17→20:37)
[2022-08-14] MEDS: DOCUSATE SODIUM 100 MG CAP PO SCH ×2 (09:19→20:38)
[2022-08-14] MEDS: ATORVASTATIN 10 MG TAB PO SCH (09:19)
[2022-08-14] MEDS: ADVANCED PROBIOTIC 1250 MG CAPSULE PO SCH (09:19)
[2022-08-14] MEDS: FERROUS GLUCONATE 324 MG TAB PO SCH (09:20)
[2022-08-14] MEDS: MAGNESIUM OXIDE 400 MG TAB PO SCH (09:29)
[2022-08-14] MEDS: AMIODARONE 200 MG TAB PO SCH (09:29)
[2022-08-14] MEDS: FOLIC ACID 1 MG TAB PO SCH (09:30)
[2022-08-14] MEDS: CHOLECALCIFEROL 1,000 UNITS 25 MCG TAB PO SCH (09:30)
[2022-08-14] MEDS: POTASSIUM CHLORIDE CRTAB 20 MEQ TABCR PO SCH (09:32)
--- NOTE | 2022-08-14 15:55 | Hospitalist Progress Note ---
Date of Service August 14, 2022 Assessment & Plan (1) Gram-negative bacteremia: Plan This is an 82-year-old female with PMH DM II, paroxysmal atrial fibrillation on Eliquis, HLD, depression and other medical problems listed below who presents to the ER after being found unresponsive at home and was found to have acute metabolic encephalopathy in setting of septic shock and metabolic acidosis 2/2 DKA. She is being managed for the following: Septic shock: Gram-negative bacteremia Complicated UTI Admitting CT abdomen pelvis with asymmetric right-sided perinephric stranding/inflammation with tiny foci of nonspecific gas within the right renal pelvis. Correlate clinically and with urinalysis for evidence of right-sided pyelonephritis. 07/27 urine culture and blood culture positive for Klebsiella pneumoniae, pansensitive Patient is a status post pressor support, currently hemodynamically stable, s/p 14 day antibiotic course [last day of antibiotic course was 08/09/2021] Acute metabolic encephalopathy: Admitting CT head with no acute findings. ANTONIA resolved-Multifactorial given septic shock 2/2 pyelo with gram negative bacteremia and DKA Currently alert and awake, oriented x1. Speech therapy evaluated for some pocketing noted over the hospital admission, recommends pured diet with thin liquids and aspiration precaution and mouth care. Also reflux precaution. DKA (diabetic ketoacidosis): Status posttreatment. Now off insulin drip. She is eating. Continue sliding scale insulin. Speech therapy BLE pain/deconditioning: PT/OT, pelvic x-ray with no acute finding. Elevated creatinine kinase level: Secondary to sepsis and critical illness. No further work-up. Elevated troponin: Likely secondary to demand ischemia and sepsis. Acute kidney injury: In the setting of severe dehydration/infection/DKA. Resolved after IV fluid resuscitation. Thrombocytopenia: Likely secondary to sepsis. Improved. Anemia, likely chronic: GRACIELA on iron profile; iron and folic acid supplement started 08/09. Hb stable Other chronic medical conditions: DM, paroxysmal A. fib --continue home meds as able. DVT prophylaxis: Eliquis CODE STATUS: DNR/DNI Disposition: Medically stable for rehab when bed is available. Likely dc on tuesday. Admission and Anticipated Discharge Date Admission Date: July 27, 2022 Subjective Patient seen and examined bedside as a follow-up of septic shock, complicated UTI, gram-negative bacteremia, acute metabolic encephalopathy, DKA. Patient was lying in bed, on room air, NAD, reports no pain today, patient is oriented x1, ROS not able in detail due to cognition status. Physical Exam Physical Exam: GENERAL: sleepy. NAD, on RA. Appears chronically ill. HEENT: No pallor, no icterus. Pupils equal, round and reactive to light. Oral mucosa moist. NECK: No JVD, no neck masses. HEART: S1 and S2 heard. Regular rate and rhythm. No murmur, no gallop. RESPIRATORY SYSTEM: Normal AP diameter. No accessory muscle use. No wheezing, no crackles. decreased breath sounds/poor effort. ABDOMEN: Soft, bowel sounds present, nontender, no distention. CENTRAL NERVOUS SYSTEM: No facial droop. Speech is clear. Obeys simple commands. Moves extremities. EXTREMITIES: No edema, no erythema seen. Results & Data Results & Data ([facility]) Vital Signs (Past 12 Hours) Vital Signs Temp Pulse Resp BP Pulse Ox O2 Del Method 08/14/22 08:00 36.5 C 60 18 109/69 94 Room Air
[2022-08-14] MEDS: ACETAMINOPHEN 325 MG TAB PO PRN (21:03)
[2022-08-15] MEDS: HYDROCODONE/ACETAMOPHEN 5/325MG TAB PO PRN (01:00)
[2022-08-15] MEDS: ACETAMINOPHEN 325 MG TAB PO PRN ×2 (04:56→19:19)
[2022-08-15] MEDS: DOCUSATE SODIUM 100 MG CAP PO SCH ×2 (08:50→20:01)
[2022-08-15] MEDS: METOPROLOL TARTRATE 25 MG TAB PO SCH ×2 (08:50→20:00)
[2022-08-15] MEDS: ATORVASTATIN 10 MG TAB PO SCH (08:51)
[2022-08-15] MEDS: MAGNESIUM OXIDE 400 MG TAB PO SCH (08:51)
[2022-08-15] MEDS: FERROUS GLUCONATE 324 MG TAB PO SCH (08:51)
[2022-08-15] MEDS: FOLIC ACID 1 MG TAB PO SCH (08:51)
[2022-08-15] MEDS: AMIODARONE 200 MG TAB PO SCH (08:52)
[2022-08-15] MEDS: CHOLECALCIFEROL 1,000 UNITS 25 MCG TAB PO SCH (08:52)
[2022-08-15] MEDS: APIXABAN 5 MG TABLET PO SCH ×2 (08:53→20:01)
[2022-08-15] MEDS: ADVANCED PROBIOTIC 1250 MG CAPSULE PO SCH (08:53)
[2022-08-15] MEDS: INSULIN ASPART PER UNIT SC SCH ×4 (09:14→21:07)
[2022-08-15] MEDS: LANTUS PER UNIT CHARGE SQ SCH ×2 (09:17→21:06)
[2022-08-15] MEDS: POTASSIUM CHLORIDE CRTAB 20 MEQ TABCR PO SCH (09:19)
--- NOTE | 2022-08-15 14:28 | Hospitalist Progress Note ---
Date of Service August 15, 2022 Assessment & Plan (1) Gram-negative bacteremia: Plan This is an 82-year-old female with PMH DM II, paroxysmal atrial fibrillation on Eliquis, HLD, depression and other medical problems listed below who presents to the ER after being found unresponsive at home and was found to have acute metabolic encephalopathy in setting of septic shock and metabolic acidosis 2/2 DKA. She is being managed for the following: Septic shock: Gram-negative bacteremia Complicated UTI Admitting CT abdomen pelvis with asymmetric right-sided perinephric stranding/inflammation with tiny foci of nonspecific gas within the right renal pelvis. Correlate clinically and with urinalysis for evidence of right-sided pyelonephritis. 07/27 urine culture and blood culture positive for Klebsiella pneumoniae, pansensitive Patient is a status post pressor support, currently hemodynamically stable, s/p 14 day antibiotic course [last day of antibiotic course was 08/09/2021] Acute metabolic encephalopathy: Admitting CT head with no acute findings. ANTONIA resolved-Multifactorial given septic shock 2/2 pyelo with gram negative bacteremia and DKA Currently alert and awake, oriented x1. Speech therapy evaluated for some pocketing noted over the hospital admission, recommends pured diet with thin liquids and aspiration precaution and mouth care. Also reflux precaution. Seems to be at her baseline without any acute confusion Remains generally weak DKA (diabetic ketoacidosis): Status posttreatment. Now off insulin drip. She is eating. Continue sliding scale insulin. Speech therapy Blood sugar remains under control BLE pain/deconditioning: PT/OT, pelvic x-ray with no acute finding. No acute symptoms Elevated creatinine kinase level: Secondary to sepsis and critical illness. No further work-up. Elevated troponin: Likely secondary to demand ischemia and sepsis. No evidence of ACS Acute kidney injury: In the setting of severe dehydration/infection/DKA. Resolved after IV fluid resuscitation. Will monitor PRP Thrombocytopenia: Likely secondary to sepsis. Improved. Anemia, likely chronic: GRACIELA on iron profile; iron and folic acid supplement started 08/09. Hb stable Other chronic medical conditions: DM, paroxysmal A. fib --continue home meds as able. DVT prophylaxis: Eliquis CODE STATUS: DNR/DNI Disposition: Medically stable for rehab when bed is available. Likely dc on tuesday. Admission and Anticipated Discharge Date Admission Date: July 27, 2022 Subjective 08/15/2022 The patient was seen and examined in medical floor She has been stable for the last few weeks and denies any significant symptoms except weakness She has been waiting to be placed Review of Systems Review of Systems: At least ten systems reviewed and negative except as noted in the HPI. Physical Exam Physical Exam: Lying in bed comfortably Constitutional: well developed, well nourished, + ill appearing and + obese Eyes: PERRL, conjunctivae normal, anicteric sclerae ENMT: external ear and nose normal, oropharynx normal Neck: trachea midline, no thyromegaly Respiratory: no respiratory distress Auscultation: lungs clear to auscultation bilaterally and + crackles (Minimal crackles at the bases) Cardiovascular: Rate/Rhythm: regular rate and regular rhythm; not tachycardic Heart Sounds: normal S1 and normal S2; no murmur Extremities: + edema (Trace edema bilaterally) Gastrointestinal (Abdomen): Inspection/Auscultation: normal bowel sounds; abdomen not distended Percussion/Palpation: abdomen soft; abdomen nontender Lymphatic: no cervical or axillary lymphadenopathy Results & Data Results & Data ([facility]) Vital Signs (Past 12 Hours) Vital Signs Temp Pulse Resp BP Pulse Ox O2 Del Method 08/15/22 07:36 36.4 C L 63 18 121/69 96 Room Air Medications Administered Current Inpatient Medications Acetaminophen (Acetaminophen 325 Mg Tab) 650 mg PO Q4H PRN PRN Reason: pain/fever Stop: 08/30/22 10:46 Last Admin: 08/15/22 04:56 Dose: 650 mg Hydrocodone Bitart/Acetaminophen (Hydrocodone/Acetamophen 5/325mg Tab) 1 tab PO Q12H PRN PRN Reason: Severe Pain Stop: 08/22/22 14:56 Last Admin: 08/15/22 01:00 Dose: 1 tab Amiodarone HCl (Amiodarone 200 Mg Tab) 100 mg PO DAILY [facility] Stop: 08/27/22 08:59 Last Admin: 08/15/22 08:52 Dose: 100 mg Apixaban (Apixaban 5 Mg Tablet) 5 mg PO BID [facility] Stop: 08/26/22 20:59 Last Admin: 08/15/22 08:53 Dose: 5 mg Atorvastatin Calcium (Atorvastatin 10 Mg Tab) 10 mg PO DAILY [facility] Stop: 08/27/22 08:59 Last Admin: 08/15/22 08:51 Dose: 10 mg Capsaicin (Capsaicin Cr 0.075% 60 Gm Tube) 1 appln EXT BID PRN PRN Reason: Pain Stop: 09/07/22 06:28 Last Admin: 08/08/22 21:03 Dose: 1 appln Dextrose (Dextrose 50% 50 Ml Syringe) 25 - 50 ml IV UD PRN; Protocol PRN Reason: Hypoglycemia Protocol Stop: 08/26/22 14:47 Last Admin: 07/30/22 06:14 Dose: 25 ml Diclofenac Sodium (Diclofenac Sod 1% Gel 100 Gm Tube) 1 gm EXT BID PRN; Protocol PRN Reason: Pain Stop: 08/26/22 19:43 Last Admin: 08/13/22 16:58 Dose: 1 gm Docusate Sodium (Docusate Sodium 100 Mg Cap) 100 mg PO BID [facility] Stop: 09/08/22 16:14 Last Admin: 08/15/22 08:50 Dose: 100 mg Ferrous Gluconate (Ferrous Gluconate 324 Mg Tab) 324 mg PO QAM [facility] Stop: 09/08/22 16:14 Last Admin: 08/15/22 08:51 Dose: 324 mg Folic Acid (Folic Acid 1 Mg Tab) 1 mg PO QAM [facility] Stop: 09/08/22 16:14 Last Admin: 08/15/22 08:51 Dose: 1 mg Glucagon (Glucagon For Inj 1 Mg Vial) 1 mg SQ UD PRN; Protocol PRN Reason: Hypoglycemia Protocol Stop: 08/26/22 14:47 Glucose (Glucose 40% Gel 15 Gm Tube) 15 - 30 gm PO UD PRN; Protocol PRN Reason: Hypoglycemia Protocol Stop: 08/26/22 14:47 Last Admin: 08/06/22 09:14 Dose: 15 gm Glucose (Glucose 10 Tab/Tube) 4 - 8 tab PO UD PRN; Protocol PRN Reason: Hypoglycemia Treatment Stop: 08/26/22 14:47 Insulin Aspart (Insulin Aspart Per Unit) 0 units SC [facility]; Protocol Stop: 08/29/22 11:59 Last Admin: 08/15/22 13:24 Dose: 6 units Insulin Glargine (Lantus Per Unit Charge) 6 units SQ BID [facility] Stop: 09/08/22 20:59 Last Admin: 08/15/22 09:17 Dose: 6 units Lactobacillus Acidophilus (Advanced Probiotic 1250 Mg Capsule) 2 cap PO DAILY [facility] Stop: 08/27/22 08:59 Last Admin: 08/15/22 08:53 Dose: 2 cap Magnesium Oxide (Magnesium Oxide 400 Mg Tab) 400 mg PO QAM [facility] Stop: 08/27/22 08:59 Last Admin: 08/15/22 08:51 Dose: 400 mg Metoprolol Tartrate (Metoprolol Tartrate 25 Mg Tab) 12.5 mg PO BID [facility] Stop: 09/02/22 20:59 Last Admin: 08/15/22 08:50 Dose: 12.5 mg Miscellaneous (Carbohydrates For Hypoglycemia ) 15 - 30 gm PO UD PRN PRN Reason: Hypoglycemia Protocol Stop: 08/26/22 14:47 Last Admin: 08/09/22 08:25 Dose: 15 gm Polyethylene Glycol (Polyethylene (Miralax) 17 Gm Pack) 17 gm PO DAILY PRN PRN Reason: Constipation Stop: 08/26/22 19:43 Last Admin: 08/10/22 09:12 Dose: 17 gm Potassium Chloride (Potassium Chloride Crtab 20 Meq Tabcr) 20 meq PO DAILY [facility] Stop: 08/27/22 08:59 Last Admin: 08/15/22 09:19 Dose: 20 meq Vitamin D (Cholecalciferol 1,000 Units 25 Mcg Tab) 2,000 units PO DAILY [facility] Stop: 08/27/22 08:59 Last Admin: 08/15/22 08:52 Dose: 2,000 units
[2022-08-16] MEDS: HYDROCODONE/ACETAMOPHEN 5/325MG TAB PO PRN (00:02)
[2022-08-16 07:58] LABS: Basophils # (auto) 0.09 K/uL (0-0.2); Basophils % (auto) 1.1 %; Eosinophils # (auto) 0.34 K/uL (0-0.50); Hematocrit (blood only) 27.1 % (34.1-44.9); Hemoglobin 8.4 g/dl (12.0-16.0); Immature Granulocytes # (auto) 0.03 K/uL (0.00-0.02); Immature Granulocytes % (auto) 0.4 %; Lymphocytes # (auto) 1.54 K/uL (1.2-3.4); Lymphocytes % (auto) 18.3 %; Mean Corpuscular Hemoglobin 26.5 pg (25.0-34.0); Mean Corpuscular Volume 85.5 fL (80.0-100.0); Mean Platelet Volume 8.8 fL (9.4-12.3); Monocytes # (auto) 0.71 K/uL (0.24-0.82); Monocytes % (auto) 8.5 %; Neutrophils # (auto) 5.69 K/uL (1.4-6.5); Neutrophils % (auto) 67.7 %; Platelet Count 405 K/uL (130-400); RDW Coefficient of Variation 14.3 % (11.5-14.5); RDW Standard Deviation 44.5 fL (36.4-46.3); Red Blood Count 3.17 M/uL (3.93-5.22)
[2022-08-16 08:20] LABS: BUN Creatinine Ratio 22.8 (10-20); Calcium 8.2 mg/dl (8.5-10.1); Est GFR (African American) 66.3 ml/min; Est GFR (Non-African American) 57.2 ml/min; Potassium 4.7 mmol/L (3.5-5.1)
[2022-08-16] MEDS: LANTUS PER UNIT CHARGE SQ SCH ×2 (09:17→21:15)
[2022-08-16] MEDS: INSULIN ASPART PER UNIT SC SCH ×4 (09:17→21:16)
[2022-08-16] MEDS: METOPROLOL TARTRATE 25 MG TAB PO SCH ×2 (09:17→21:17)
[2022-08-16] MEDS: POTASSIUM CHLORIDE CRTAB 20 MEQ TABCR PO SCH (09:17)
[2022-08-16] MEDS: MAGNESIUM OXIDE 400 MG TAB PO SCH (09:18)
[2022-08-16] MEDS: ADVANCED PROBIOTIC 1250 MG CAPSULE PO SCH (09:18)
[2022-08-16] MEDS: ATORVASTATIN 10 MG TAB PO SCH (09:19)
[2022-08-16] MEDS: FOLIC ACID 1 MG TAB PO SCH (09:19)
[2022-08-16] MEDS: FERROUS GLUCONATE 324 MG TAB PO SCH (09:19)
[2022-08-16] MEDS: APIXABAN 5 MG TABLET PO SCH ×2 (09:19→21:17)
[2022-08-16] MEDS: DOCUSATE SODIUM 100 MG CAP PO SCH ×2 (09:19→21:16)
[2022-08-16] MEDS: AMIODARONE 200 MG TAB PO SCH (09:19)
[2022-08-16] MEDS: CHOLECALCIFEROL 1,000 UNITS 25 MCG TAB PO SCH (09:19)
--- NOTE | 2022-08-16 15:41 | Hospitalist Progress Note ---
Date of Service August 16, 2022 Assessment & Plan (1) Gram-negative bacteremia: Plan This is an 82-year-old female with PMH DM II, paroxysmal atrial fibrillation on Eliquis, HLD, depression and other medical problems listed below who presents to the ER after being found unresponsive at home and was found to have acute metabolic encephalopathy in setting of septic shock and metabolic acidosis 2/2 DKA. She is being managed for the following: Chest pain Pain was actually in the left shoulder Did not have any associated symptoms with it Doubt any cardiac origin EKG did not show any change Septic shock: Gram-negative bacteremia Complicated UTI 07/27 urine culture and blood culture positive for Klebsiella pneumoniae, pansensitive Patient is a status post pressor support, currently hemodynamically stable, s/p 14 day antibiotic course [last day of antibiotic course was 08/09/2021] Has been waiting for placement Acute metabolic encephalopathy: Admitting CT head with no acute findings. ANTONIA resolved-Multifactorial given septic shock 2/2 pyelo with gram negative bacteremia and DKA Currently alert and awake, oriented x1. Speech therapy evaluated for some pocketing noted over the hospital admission, recommends pured diet with thin liquids and aspiration precaution and mouth care. Also reflux precaution. Seems to be at her baseline without any acute confusion Remains generally weak Awaiting placement DKA (diabetic ketoacidosis): Status posttreatment. Now off insulin drip. She is eating. Continue sliding scale insulin. Speech therapy Blood sugar remains under control BLE pain/deconditioning: PT/OT, pelvic x-ray with no acute finding. No acute symptoms Elevated creatinine kinase level: Secondary to sepsis and critical illness. No further work-up. Elevated troponin: Likely secondary to demand ischemia and sepsis. No evidence of ACS Acute kidney injury: In the setting of severe dehydration/infection/DKA. Resolved after IV fluid resuscitation. Will monitor PRP Thrombocytopenia: Likely secondary to sepsis. Improved. Anemia, likely chronic: GRACIELA on iron profile; iron and folic acid supplement started 08/09. Hb stable Other chronic medical conditions: DM, paroxysmal A. fib --continue home meds as able. DVT prophylaxis: Eliquis CODE STATUS: DNR/DNI Disposition: Medically stable for rehab when bed is available. Likely dc on Tuesday. Admission and Anticipated Discharge Date Admission Date: July 27, 2022 Subjective 08/15/2022 The patient was seen and examined in medical floor She has been stable for the last few weeks and denies any significant symptoms except weakness She has been waiting to be placed 08/16/2022 The patient was seen and examined in medical floor She has had some left shoulder pain/chest pain this afternoon EKG is normal and the pain resolved when I saw No other associated symptoms with it Review of Systems Review of Systems: At least ten systems reviewed and negative except as noted in the HPI. Physical Exam Physical Exam: Lying in bed comfortably Constitutional: well developed, well nourished, + ill appearing and + obese Eyes: PERRL, conjunctivae normal, anicteric sclerae ENMT: external ear and nose normal, oropharynx normal Neck: trachea midline, no thyromegaly Respiratory: no respiratory distress Auscultation: lungs clear to auscultation bilaterally and + crackles (Minimal crackles at the bases) Cardiovascular: Rate/Rhythm: regular rate and regular rhythm; not tachycardic Heart Sounds: normal S1 and normal S2; no murmur Extremities: + edema (Trace edema bilaterally) Gastrointestinal (Abdomen): Inspection/Auscultation: normal bowel sounds; abdomen not distended Percussion/Palpation: abdomen soft; abdomen nontender Musculoskeletal: No acute arthritis involving any joint Neurologic: normal touch/pain/proprioception and moves all extremities; no focal motor deficits and not confused Lymphatic: no cervical or axillary lymphadenopathy Results & Data Results & Data ([facility]) Vital Signs (Past 12 Hours) Vital Signs Temp Pulse Resp BP Pulse Ox O2 Del Method O2 Del Method 08/16/22 15:00 36.9 C 68 18 99/62 L 94 Room Air 08/16/22 08:00 Room Air 08/16/22 07:20 36.5 C 67 18 104/57 L 98 Room Air Laboratory Results Short CBC 08/16/22 Range/Units 07:26 WBC 8.40 (4.8-10.8) K/ul Hgb 8.4 L (12.0-16.0) g/dl Hct 27.1 L (34.1-44.9) % Plt Count 405 H (130-400) K/uL BMP 08/16/22 07:26 Sodium 135 L Potassium 4.7 Chloride 104 Carbon Dioxide 31 BUN 21 Creatinine 0.92 Glucose 110 H Calcium 8.2 L Medications Administered Current Inpatient Medications Acetaminophen (Acetaminophen 325 Mg Tab) 650 mg PO Q4H PRN PRN Reason: pain/fever Stop: 08/30/22 10:46 Last Admin: 08/15/22 19:19 Dose: 650 mg Hydrocodone Bitart/Acetaminophen (Hydrocodone/Acetamophen 5/325mg Tab) 1 tab PO Q12H PRN PRN Reason: Severe Pain Stop: 08/22/22 14:56 Last Admin: 08/16/22 00:02 Dose: 1 tab Amiodarone HCl (Amiodarone 200 Mg Tab) 100 mg PO DAILY TITI Stop: 08/27/22 08:59 Last Admin: 08/16/22 09:19 Dose: 100 mg Apixaban (Apixaban 5 Mg Tablet) 5 mg PO BID TITI Stop: 08/26/22 20:59 Last Admin: 08/16/22 09:19 Dose: 5 mg Atorvastatin Calcium (Atorvastatin 10 Mg Tab) 10 mg PO DAILY TITI Stop: 08/27/22 08:59 Last Admin: 08/16/22 09:19 Dose: 10 mg Capsaicin (Capsaicin Cr 0.075% 60 Gm Tube) 1 appln EXT BID PRN PRN Reason: Pain Stop: 09/07/22 06:28 Last Admin: 08/08/22 21:03 Dose: 1 appln Dextrose (Dextrose 50% 50 Ml Syringe) 25 - 50 ml IV UD PRN; Protocol PRN Reason: Hypoglycemia Protocol Stop: 08/26/22 14:47 Last Admin: 07/30/22 06:14 Dose: 25 ml Diclofenac Sodium (Diclofenac Sod 1% Gel 100 Gm Tube) 1 gm EXT BID PRN; Protocol PRN Reason: Pain Stop: 08/26/22 19:43 Last Admin: 08/13/22 16:58 Dose: 1 gm Docusate Sodium (Docusate Sodium 100 Mg Cap) 100 mg PO BID TITI Stop: 09/08/22 16:14 Last Admin: 08/16/22 09:19 Dose: 100 mg Ferrous Gluconate (Ferrous Gluconate 324 Mg Tab) 324 mg PO QAM TITI Stop: 09/08/22 16:14 Last Admin: 08/16/22 09:19 Dose: 324 mg Folic Acid (Folic Acid 1 Mg Tab) 1 mg PO QAM TITI Stop: 09/08/22 16:14 Last Admin: 08/16/22 09:19 Dose: 1 mg Glucagon (Glucagon For Inj 1 Mg Vial) 1 mg SQ UD PRN; Protocol PRN Reason: Hypoglycemia Protocol Stop: 08/26/22 14:47 Glucose (Glucose 40% Gel 15 Gm Tube) 15 - 30 gm PO UD PRN; Protocol PRN Reason: Hypoglycemia Protocol Stop: 08/26/22 14:47 Last Admin: 08/06/22 09:14 Dose: 15 gm Glucose (Glucose 10 Tab/Tube) 4 - 8 tab PO UD PRN; Protocol PRN Reason: Hypoglycemia Treatment Stop: 08/26/22 14:47 Insulin Aspart (Insulin Aspart Per Unit) 0 units SC ACHS [facility]; Protocol Stop: 08/29/22 11:59 Last Admin: 08/16/22 12:47 Dose: 4 units Insulin Glargine (Lantus Per Unit Charge) 6 units SQ BID [facility] Stop: 09/08/22 20:59 Last Admin: 08/16/22 09:17 Dose: 6 units Lactobacillus Acidophilus (Advanced Probiotic 1250 Mg Capsule) 2 cap PO DAILY TITI Stop: 08/27/22 08:59 Last Admin: 08/16/22 09:18 Dose: 2 cap Magnesium Oxide (Magnesium Oxide 400 Mg Tab) 400 mg PO QAM [facility] Stop: 08/27/22 08:59 Last Admin: 08/16/22 09:18 Dose: 400 mg Metoprolol Tartrate (Metoprolol Tartrate 25 Mg Tab) 12.5 mg PO BID [facility] Stop: 09/02/22 20:59 Last Admin: 08/16/22 09:17 Dose: 12.5 mg Miscellaneous (Carbohydrates For Hypoglycemia ) 15 - 30 gm PO UD PRN PRN Reason: Hypoglycemia Protocol Stop: 08/26/22 14:47 Last Admin: 08/09/22 08:25 Dose: 15 gm Polyethylene Glycol (Polyethylene (Miralax) 17 Gm Pack) 17 gm PO DAILY PRN PRN Reason: Constipation Stop: 08/26/22 19:43 Last Admin: 08/10/22 09:12 Dose: 17 gm Potassium Chloride (Potassium Chloride Crtab 20 Meq Tabcr) 20 meq PO DAILY [facility] Stop: 08/27/22 08:59 Last Admin: 08/16/22 09:17 Dose: 20 meq Vitamin D (Cholecalciferol 1,000 Units 25 Mcg Tab) 2,000 units PO DAILY [facility] Stop: 08/27/22 08:59 Last Admin: 08/16/22 09:19 Dose: 2,000 units
[2022-08-17] MEDS: CAPSAICIN CR 0.075% 60 GM TUBE EXT PRN (04:16)
--- NOTE | 2022-08-17 06:33 | Electrocardiogram Report ---
Test Reason : Blood Pressure : / mmHG Vent. Rate : 066 BPM Atrial Rate : 066 BPM P-R Int : 202 ms QRS Dur : 104 ms QT Int : 420 ms P-R-T Axes : 000 -56 028 degrees QTc Int : 440 ms Sinus rhythm Left axis deviation Low voltage QRS Incomplete right bundle branch block Possible Inferior infarct (cited on or before 07-AUG-2022) Cannot rule out Anterior infarct (cited on or before 07-AUG-2022) Nonspecific T wave abnormality Abnormal ECG When compared with ECG of 07-AUG-2022 06:24, No significant change Confirmed by Josiah Esposito ([id number] on 08/17/2022 6:32:45 AM Referred By: REFERRED SELF Confirmed By:Josiah Esposito
[2022-08-17] MEDS: APIXABAN 5 MG TABLET PO SCH (08:09)
[2022-08-17] MEDS: AMIODARONE 200 MG TAB PO SCH (08:09)
[2022-08-17] MEDS: FERROUS GLUCONATE 324 MG TAB PO SCH (08:10)
[2022-08-17] MEDS: METOPROLOL TARTRATE 25 MG TAB PO SCH (08:10)
[2022-08-17] MEDS: ATORVASTATIN 10 MG TAB PO SCH (08:10)
[2022-08-17] MEDS: CHOLECALCIFEROL 1,000 UNITS 25 MCG TAB PO SCH (08:11)
[2022-08-17] MEDS: FOLIC ACID 1 MG TAB PO SCH (08:11)
[2022-08-17] MEDS: DOCUSATE SODIUM 100 MG CAP PO SCH (08:12)
[2022-08-17] MEDS: ADVANCED PROBIOTIC 1250 MG CAPSULE PO SCH (08:12)
[2022-08-17] MEDS: MAGNESIUM OXIDE 400 MG TAB PO SCH (08:12)
[2022-08-17] MEDS: POTASSIUM CHLORIDE CRTAB 20 MEQ TABCR PO SCH (08:14)
[2022-08-17] MEDS: INSULIN ASPART PER UNIT SC SCH ×2 (09:47→12:51)
[2022-08-17] MEDS: LANTUS PER UNIT CHARGE SQ SCH (09:47)
--- NOTE | 2022-08-17 10:56 | Discharge Summary ---
Date of Service August 17, 2022 Admission HPI Per Admitting Provider This is an 82-year-old female with PMH DM II, paroxysmal atrial fibrillation on Eliquis, HLD, depression and other medical problems listed below who presents to the ER after being found unresponsive at home. Family, who lives out of state, last spoke with her on and became concerned when they did not hear from her since then. Daughter then called EMS who found patient lying on the ground in her home unresponsive and covered in urine and vomit. Was notably hypotensive, hypothermic and with critically high BSG. Brought into [facility] ED for further evaluation. At baseline, patient uses a walker to ambulate and lives alone. Daughter confirmed patient's code status over the phone with Dr. Schaefer as DNR/DNI. ROS unobtainable due to reduced consciousness. Admission Exam Per Admitting Provider General Appearance:WD/WN, vitals as above, lethargic, responsive to painful stimuli, wearing chino hugger Head: normocephalic, atraumatic Eyes:normal inspection, PERRL, conjunctivae normal, anicteric sclerae ENT: external ear and nose normal, oropharynx normal Neck: normal visual inspection, trachea midline, no thyromegaly Respiratory:normal respiratory effort, lungs clear to auscultation, no wheeze, rales, rhonchi. No accessory muscle use Cardiovascular: regular rate, rhythm, no murmur, normal peripheral pulses, no BLE edema. Vessels: no JVD Chest: normal inspection of chest Abdomen/GI: normal bowel sounds, soft, nontender, no hepatosplenomegaly :Kraus in place draining cloudy yellow urine Extremities/Musculoskeletal: no cyanosis or clubbing, + abrasions noted on bilateral knees and feet Neurologic/psychiatric: PERRL, somnolent, A&Ox0, responsive to painful stimuli only Skin: no rashes, normal color, warm/dry Principal Diagnosis Gram negative bacteremia 2/2 complicated klebsiella pneumoniae UTI - resolved Septic Shock - resolved Acute Metabolic Encephalopathy 2/2 UTI -resolved DKA - resolved WEST - resolved Thrombocytopenia - resolved Iron deficiency anemia T2DM PAF Ambulatory dysfunction Discharge Exam Gen: WD/WN, obese, Elderly, NAD, A&O x2, not exactly time, thought it was 2019 HEENT: Normocephalic, atraumatic, conjunctivae moist, sclerae anicteric, mucous membranes moist. Lung: Clear to Auscultation bilaterally, no wheezes/rales/rhonchi Heart: Regular rate, regular rhythm, no murmurs, rubs, or gallops Abdomen: Soft, NT, ND +BS x 4 Extremities: No edema Skin: Warm, no rash, negative turgor. Discharge Data Allergies Allergy/AdvReac Type Severity Reaction Status Date / Time codeine AdvReac Intermediate VOMITING Verified 07/27/22 15:09 Consultations 07/27/22 14:22 ED Decision to Admit Stat 07/27/22 15:22 Consult Crown Buffer Routine Ordered Studies Abdomen/Pelvis CT 07/27/22 12:58 CT SCAN OF THE ABDOMEN AND PELVIS WITHOUT IV CONTRAST CLINICAL HISTORY: Found down. COMPARISON STUDY: Abdominal CT dated 01/01/2012. TECHNIQUE: CT scan of the abdomen and pelvis is performed from the lung bases to the proximal femora. Images are reviewed in the axial, sagittal, and coronal planes. IV contrast was not administered for this examination. Note that the examination is significantly suboptimal without oral and IV contrast. There is motion artifact, as well as streak artifact from the arms which could not be elevated above the abdomen. A dose lowering technique was utilized adhering to the principles of ALARA. FINDINGS: Lung bases: The heart is enlarged and without pericardial effusion. The lung bases are clear noting bibasilar scarring/atelectasis. A small hiatal hernia is noted. Liver: The unenhanced liver is cirrhotic in morphology and heterogeneous in attenuation. There is nodularity of the hepatic surface contour. There is no intrahepatic biliary ductal dilatation. Gallbladder: Surgically absent. Spleen: Normal in size and attenuation. Pancreas: The unenhanced pancreas is atrophic and grossly unremarkable. Adrenal glands: Unremarkable. Kidneys: The unenhanced kidneys demonstrate mild cortical atrophy and are without hydronephrosis. There are tiny foci of gas within the right renal collecting system. Asymmetric Extraneous on the right. There are no renal calculi identified. There is no evidence of contour deforming renal mass lesion. Abdominal vasculature: The abdominal aorta is normal in course and caliber noting mild atherosclerotic calcification. Bowel: There are scattered colonic diverticula without CT evidence of acute diverticulitis. No bowel obstruction is seen. The appendix is well-visualized and normal. Peritoneum: There is no intraperitoneal free air or abdominal ascites. Lymphadenopathy: None. Pelvic viscera: The bladder is decompressed around a Kraus catheter and could not be assessed. Gas within the bladder lumen is likely related to instrumentation. The uterus is surgically absent. No adnexal lesion is seen. Skeletal structures: The skeletal structures are osteopenic. There are chronic appearing compression deformities of T11, T12, L1, L2, and L3. Several views are new from 2012. Lumbosacral spondylosis is observed. No lytic or blastic lesions are seen. IMPRESSION: 1. There is asymmetric right-sided perinephric stranding/inflammation with tiny foci of nonspecific gas within the right renal pelvis. Correlate clinically and with urinalysis for evidence of right-sided pyelonephritis. Emphysematous infection is not excluded. 2. Cirrhotic liver morphology. 3. Cardiomegaly. 4. Additional findings as above. ACT 112: Negative or not required by law. Electronically signed by: Jeronimo Orosco M.D. 07/27/2022 2:[address] 07/27/22 12:58 CT cervical spine wo con CLINICAL HISTORY: found down TECHNIQUE: Multidetector row helical CT of the cervical spine was performed without administration of intravenous contrast. Coronal and sagittal reformations were obtained. Automated dose lowering techniques and/or adjustment according to patient size were utilized for this exam. Comparison: None available at the time of this dictation. FINDINGS: No acute fractures or subluxations are identified. Degenerative changes are seen in the visualized spine. Transverse ligament calcification is noted. The alignment is normal. Soft tissues are unremarkable. IMPRESSION: Degenerative changes without evidence of acute bony injury. ACT 112: Negative or not required by law. Electronically signed by: Preston Carrasquillo M.D. 07/27/2022 2:10 PM Chest X-Ray 07/27/22 12:58 SINGLE VIEW CHEST CLINICAL HISTORY: Found down. FINDINGS: An AP, portable, supine chest radiograph is compared to study dated . The heart is enlarged noting atherosclerotic calcification of the thoracic aorta. The pulmonary vasculature is noncongested. Chronic interstitial thickening is similar to previous. There is mild bibasilar scarring/atelectasis. No airspace consolidation or large pleural effusion is identified. No pneumothorax is seen. The skeletal structures are osteopenic. The bony thorax is grossly intact. IMPRESSION: Cardiomegaly with no acute cardiopulmonary abnormality identified. ACT 112: Negative or not required by law. Electronically signed by: Jeronimo Orosco M.D. 07/27/2022 1:[address] 07/27/22 12:58 CT head/brain wo con CLINICAL HISTORY: 82 years-old Female with found down. Acute head trauma TECHNIQUE: Multiple axial CT images of the head were obtained without contrast. A dose lowering technique was utilized adhering to the principles of ALARA. CT DOSE: 1516.11 mGy.cm COMPARISON: 09/09/2020 FINDINGS: No acute intracranial hemorrhage, midline shift, intracranial mass, hydrocephalus, territorial ischemia or abnormal extra-axial collection. Involutional changes with ventriculomegaly redemonstrated, likely on an ex vacuo basis. The calvarium is intact. Partially imaged nasal bone fractures are favored to be chronic. Prior bilateral lens repair. The paranasal sinuses, mastoid air cells, and middle ear cavities are clear. IMPRESSION: No acute intracranial abnormality or calvarial fracture. ACT 112: Negative or not required by law. The above report was generated using voice recognition software. It may contain grammatical, syntax or spelling errors. Electronically signed by: Alex Herrera M.D. 07/27/2022 2:01 PM Pelvis X-Ray 07/27/22 12:58 XR pelvis 1-2V routine CLINICAL HISTORY: found down TECHNIQUE: A single frontal view of the pelvis was obtained. Comparison: Comparison is made to pelvic radiograph 09/09/2020 FINDINGS: Of note, the top of the iliac crests are not within the field of view. There is no evidence of an acute fracture. Degenerative changes are seen in the hip joints and lumbar spine. No soft tissue abnormality is seen. IMPRESSION: Degenerative changes are seen. No pelvic ring fractures are visualized. ACT 112: Negative or not required by law. Electronically signed by: Preston Carrasquillo M.D. 07/27/2022 1:24 PM Chest X-Ray 07/28/22 04:00 XR chest 1V portable CLINICAL HISTORY: evaluate pulmonary metcalf TECHNIQUE: Single frontal radiograph of the chest was obtained. Comparison: Comparison is made to chest radiograph 07/27/2022 FINDINGS: No lines and tubes are seen. Calcified aortic knob is seen. The lungs are clear. No evidence of pleural effusion or pneumothorax. IMPRESSION: No acute abnormalities and in particular no evidence of pneumonia. ACT 112: Negative or not required by law. Electronically signed by: Preston Carrasquillo M.D. 07/28/2022 8:43 AM Chest X-Ray 07/29/22 04:00 XR chest 1V portable HISTORY: Shortness of breath. COMPARISON: Chest 07/28/2022. FINDINGS: There are low lung volumes. Questionable focal right apical density is not appreciated on the recent cervical spine CT and is therefore likely artifact. The heart remains mildly enlarged. No evidence for pulmonary edema. No new focal lung consolidations to suggest a pneumonia. No pleural effusions. No pneumothorax. IMPRESSION: No significant change compared to the prior study. No acute process. ACT 112: Negative or not required by law. Electronically signed by: Phu Presley M.D. 07/29/2022 8:11 AM Pelvis X-Ray 08/06/22 16:42 SINGLE VIEW PELVIS CLINICAL HISTORY: Bilateral leg pain. FINDINGS: 2 AP, portable, supine pelvic radiographs are compared to pelvic radiographs and CT dated 07/27/2022. The skeletal structures are osteopenic. There is no radiographic evidence of fracture involving the hips or bony pelvis. Moderate arthritic change and joint space narrowing is seen in the hips. Degenerative sclerosis is noted in the sacroiliac joints. Enthesophytes arise from the anterior superior iliac spines. Mild body wall edema is noted. A catheter projects over the pelvis. IMPRESSION: No acute bony abnormality is identified. Electronically signed by: Jeronimo Orosco M.D. 08/06/2022 5:42 PM Tibia/Fibula X-Ray 08/10/22 14:38 XR tibia fibula LT 2V CLINICAL HISTORY: left leg pain, pt believes she has fracture TECHNIQUE: 2 radiographic views of the left leg were obtained. Comparison: Comparison is made to left ankle radiograph 07/16/2021 FINDINGS: There is no evidence of an acute fracture. Mild degenerative changes are seen in the visualized joints. Plantar and Achilles enthesophytes are seen. No soft tissue abnormality is seen. IMPRESSION: No evidence of acute osseous injury. ACT 112: Negative or not required by law. Electronically signed by: Preston Carrasquillo M.D. 08/10/2022 3:14 PM Diabetes Follow up A1C 14.8 07/27/22 Hospital Course (1) Gram-negative bacteremia: Plan This is an 82-year-old female with PMH DM II, paroxysmal atrial fibrillation on Eliquis, HLD, depression and other medical problems listed below who presents to the ER after being found unresponsive at home and was found to have acute metabolic encephalopathy in setting of septic shock and metabolic acidosis 2/2 DKA. She was admitted to the ICU On 07/27/2022 secondary to septic shock, DKA and metabolic acidosis. She was diagnosed with gram-negative bacteremia secondary to a complicated UTI and pyelonephritis. Urine and blood culture both positive for Klebsiella pneumoniae, pansensitive. She was treated with 14-day course of antibiotic. She was found to be in DKA with metabolic acidosis and this was treated with insulin drip. She has since transitioned to basal bolus regimen. On admission she was encephalopathic likely multifactorial in setting of septic shock. She continues to be at her baseline with mild confusion but otherwise alert. She was seen and evaluated by speech therapy during admission who recommended pured diet with thin liquids and aspiration precautions. Due to significant hospitalization she became generally deconditioned and was seen and evaluated by PT and OT. It was recommended she dissipate in a subacute rehab to improve her weakness. Her hospital course was further complicated by WEST treated with IV fluid in setting of severe dehydration, sepsis and DKA; elevated troponin secondary to demand ischemia and sepsis, & elevated creatinine kinase secondary to sepsis and critical illness. In regards to her T2DM at baseline she is relatively uncontrolled with A1c of 14.8 on admission. Prior to hospitalization she was on significant dose of Tresiba 160 units daily along with 25 units of insulin aspart with meals. While being placed on a carb controlled diet her insulin needs has significantly been reduced and will be outlined in her discharge recommendations. She will need close diabetic follow- up. She remains on anticoagulation with Eliquis in setting of A. fib. Her hemoglobin remained stable although she was found to be iron deficient and started on iron supplement. On day of discharge she was in good spirits and ready to be discharged to rehab. She had no acute complaints and was at her baseline mentally, alert and oriented to person and place. She was hemodynamically stable with blood pressure 120/69 and her blood sugar was 111 this morning. Total Time Total Time Spent Total Time Spent (In Minutes): 65 minutes Discharge Plan Discharge Items Patient Disposition: Transfer Group Home Fac Reason For Visit: AMS, SEPSIS, HYPERGLYCEMIA Discharge Diagnosis: Gram negative bacteremia 2/2 complicated klebsiella pneumoniae UTI - resolved Septic Shock - resolved Acute Metabolic Encephalopathy 2/2 UTI -resolved DKA - resolved WEST - resolved Thrombocytopenia - resolved Iron deficiency anemia T2DM PAF Ambulatory dysfunction Activity: Resume your previous activity Lifting: Gradually increase as tolerated Weightbearing: Full weightbearing Non-emergency contact: Primary Care Provider Call non-emergency contact if: you have any medication questions, your symptoms worsen, your pain is concerning for you, you have a fever and your temperature is above 101 Follow-up/Referrals: Josh Benites, [Primary Care Provider] - Diet: Carb Consistent or DM2 Diet Texture: Pureed (blended smooth) Diet Comment: Aspiration precautions Addtl Attending Provider Instructions: MEDICATION CHANGES: Metoprolol tartrate was reduced to 12.5 mg twice daily New medications Ferrous gluconate 3.4 mg once daily Folic acid 1 mg daily Lantus 6 units subcutaneous twice daily Insulin aspart sliding scale PENDING TEST RESULTS: None RECOMMENDATIONS FOR FOLLOW-UP: Please follow-up with PCP [facility] Please follow-up with provider at [facility]. Patient had significant reduction of insulin requirements while inpatient. A1C 07/27/2022 14.7 Previously she was on Tresiba 160 units daily along with 25 units of aspart 3 times daily with meals During hospitalization she was maintained on a carb controlled diet She only required Lantus 6 units subcutaneous twice daily along with insulin aspart sliding scale for blood sugar Recommend Accu-Cheks AC/at bedtime, she may need adjustment in insulin while at your facility Insulin aspart sliding scale as follows: If BSG > 180 give 6 units If BSG 120-180 give 4 units If BSG < 120 give 0 units Continue therapies as prescribed. Continue all other medications as prescribed. Recommend CBC, BMP, Mag in 3 days. Pt was found to be iron deficient while inpatient, recommend repeating iron panel in 2-months. A1C to be repeated 10/25/22. OTHER INSTRUCTIONS: Seek medical attention if you have: * temperature above 101 * chest pain or trouble breathing * abdominal pain, nausea, vomiting * diarrhea, dark stools or bloody stools * any unanswered questions or concerns Call 911 if symptoms are severe. Please take good care of yourself. It has been a pleasure taking care of you. Please take care of yourself. If you have any questions regarding your recent hospitalization please contact [facility] and request [facility] @ [phone]. Aliyah Poe PA-C Pending Studies at Discharge: No Stand-Alone Forms: My [facility] Skilled Items Patient informed of condition?: Yes DNR: Yes Discharge Level of Care: Skilled Communicable Disease: No Discharge Prognosis: Stable Lines: None Urinary Catheter: No Medications and DC Order Prescriptions: New ferrous gluconate 324 mg (38 mg iron) Tablet 324 mg PO QAM Qty: 30 0RF metoprolol tartrate 25 mg Tablet 12.5 mg PO BID Qty: 60 0RF folic acid 1 mg Tablet 1 mg PO QAM Qty: 30 0RF insulin glargine [Lantus U-100 Insulin] 100 unit/mL Solution 6 unit subcut BID Qty: 10 0RF Continued cholecalciferol (vitamin D3) 50 mcg (2,000 unit) capsule 2,000 unit PO DAILY acetaminophen 325 mg tablet 650 mg PO Q4H PRN (Reason: fever or pain) Eliquis 5 mg Tablet 5 mg PO BID Qty: 20 0RF magnesium oxide 400 mg (241.3 mg magnesium) Tablet 400 mg PO QAM Qty: 20 0RF diclofenac sodium 1 % Gel 1 g TOPICAL BID PRN (Reason: Pain) potassium chloride 10 mEq Capsule, Extended Release 20 meq PO DAILY atorvastatin 10 mg Tablet 10 mg PO DAILY ondansetron HCl 4 mg Tablet 4 mg PO Q6H PRN (Reason: NAUSEA/VOMITING) docusate sodium 100 mg Capsule 100 mg PO BID PRN (Reason: Constipation) amiodarone 100 mg Tablet 100 mg PO DAILY metformin 500 mg tablet extended release 24 hr 500 mg PO DAILY Qty: 30 0RF polyethylene glycol 3350 [Miralax] 17 gram/dose Powder 17 g PO DAILY PRN (Reason: Constipation) Lactobacillus acidophilus Capsule 10,000 mmu cells PO DAILY Rx Instructions: TAKES 2 CAPS DAILY hydrocodone-acetaminophen 5-325 mg tablet 1 tab PO Q6H PRN (Reason: pain) Qty: 10 0RF Changed insulin aspart U-100 [Novolog U-100 Insulin aspart] 100 unit/mL solution 1 sliding scale dose subcut TIDM Qty: 10 0RF Rx Instructions: IF BSG > 180 give 6 units IF BSG 120-180 give 4 units If BSG < 120 give 0 units Discontinued mirtazapine 30 mg tablet 30 mg PO HS Qty: 20 0RF metoprolol tartrate 25 mg Tablet 25 mg PO BID Vitron-C 65 mg iron- 125 mg Tablet,Delayed Release (Dr/Ec) 1 tab PO DAILY insulin degludec [Tresiba FlexTouch U-200] 200 unit/mL (3 mL) Insulin Pen 160 unit SUBCUT DAILY Rx Instructions: PT WAS TO FINISH LANTUS INSULIN THEN START DATED 03/29/22 PER [facility]. Discharge Orders: Discharge Order (Routine); Ordered 08/17/22 Ordered By: Aliyah Sotelo/Other Patient Handouts: High Blood Sugar (Hyperglycemia), Hypoglycemia (Low Blood Sugar), Managing Type 2 Diabetes Admission Data Admit Date/Time: 07/27/22 14:27 Attending Provider: Jeevan Hernandez Admit Provider: Vladimir Ellis Primary Care Provider: Josh Benites Other Providers: Vladimir Ellis ; Yunior Choe ; [facility] ; [facility] ; [facility] ; Felicia Diaz ; Keisha Bonilla ; [facility] ; Guillermo Garcia ; Aliyah Poe Other Interventions: Discharge Summary Assessment (RN) Last Done: 08/17/22 11:55 Supervising Physician Co-Signing Physician Notes Attending addendum: The patient was seen and examined in medical floor She remained stable and does not have any acute distress and her symptoms She is ready to be discharged today Examination Lying in bed comfortably Hemodynamically stable Chest-clear to auscultate bilaterally Heart-S1, [id number] Abdomen-benign Extremities-trace edema bilaterally Her recent labs reviewed She has had long hospital stay due to multiple complicated medical problems as mentioned above Remains stable for the last few days and has been accepted to rehab facility Medically stable to be discharged Agree with assessment plan as outlined above by Aliyah Hernandez
== END 2022-08-17 13:50 | DRG 871 ==
LOC: ED 12:53 → SUATTDRO 14:27 → EDINP 14:27 → 1E 18:24 → 2E 07-31 14:45 → 2N 08-02 16:25 → 3N 08-03 04:35